=== PATIENT | female | born 1975 | race Caucasian/White ===

== ENCOUNTER 2023-10-22 00:48 | Day surgery (SDC) | payer OTHER, SELFPAY ==
[2023-10-19 13:54] VITALS: BMI 22.8
--- NOTE | 2023-10-19 14:01 | PC.NURSE ---
Report to the Outpatient Waiting Room, entrance under the green pavilion located off [facility], at time _0800_ on date _[id number]_. Planned Procedure Time: _1000_. Time changes happen often and if your time is changed the preop area will call you the afternoon before. - You and your visitor will be asked to self-screen and do not enter if you have any COVID symptoms. - A mask is optional within the hospital at this time. Patients may have clear liquids (water, carbonated beverages, clear teas, apple juice) until 3 hours prior to surgery with a maximum of 20 ounces. - No food from midnight until time of surgery Take the following medications with a SIP of water the morning of surgery: __None DO NOT STOP ANY OF YOUR OTHER PRESCRIPTION MEDICATIONS PRIOR TO SURGERY ?EXCEPT THE FOLLOWING Medications to discontinue per physician Patient say she was not told to hold meloxicam by Dr Arreola or her office. Date to take last dose Please no make-up, nail maori, hairspray, perfume, deodorant, or body powder the day of surgery. No jewelry (including any body piercings) or valuables the day of surgery, leave them at home. Please take a shower or bath the night before, or the morning of, surgery with an antibacterial soap. Wear comfortable, loose fitting clothing. - Jewelry must be removed prior to entering the operating room. Rings and piercings that are not removed may be cut off. - The hospital will not accept responsibility for valuables. - Please leave all valuables, including medications, at home the day of surgery. If you are going home after surgery, a licensed driver helper must drive you home. - NO public transportation without another adult if you receive anesthesia. - We recommend that an adult stay with you for 24 hours following discharge. - We also recommend that you do not drive, make important decision, drink alcoholic beverages, or take any drugs that were not prescribed by your health care provider for at least 24 hours after your discharge time. Follow any additional instructions given to you from your surgeon. If you or anyone in your household have experienced Covid symptoms in the past week, please notify your surgeon or the nurse liaison at the phone number below for possible testing. Telephone instructions given to ___Luciana and asked if any additional questions and then verbalized understanding. Patient advised to call surgeon office or pre surgery nurse liaison [phone] if any additional questions.
--- NOTE | 2023-10-22 07:59 | WPDHPUPDATE1 ---
History and Physical Update Update Date/Time: 10/22/23 07:59 History and Physical has been reviewed, including an updated exam of the patient. There are NO changes in the patient's condition. Risks, benefits, and alternatives have been discussed and questions answered. Patient agrees to proceed with procedure.
--- NOTE | 2023-10-22 07:59 | PM.HPGS ---
History of Present Illness History of Present Illness Consent: Risks, benefits, and alternatives have been discussed and questions answered. Patient agrees to proceed with procedure. Chief complaint: post menopausal bleeding Narrative: Luciana Yost is a 48 year old female with postmenopausal bleeding. Pelvic ultrasound shows a thickened endometrium. In addition the patient has a simple ovarian cyst. She was asymptomatic and tumor markers are normal. Options were reviewed and the patient declined laparoscopic management. Plan is for a repeat ultrasound in 3 months. Due to the thickened endometrium that was recommended to undergo D&C hysteroscopy. Risks of infection, bleeding, perforation, and possible pathology are reviewed. Patient voices understanding and agrees to proceed. Review of Systems Review of Systems: not repeated day of surgery; patient states no changes in status PMFSH Past Medical History Medical History (Updated 10/22/23 @ 08:05 by Cori Arreola MD) (normal spontaneous vaginal delivery) x3 Surgical History Surgical History (Updated 10/22/23 @ 08:04 by Cori Arreola MD) Status post appendectomy Status post carpal tunnel release left Status post hemorrhoidectomy Status post laparoscopic cholecystectomy Status post loop electrosurgical excision procedure (LEEP) of cervix Social History Social History Smoking status: Never smoker Alcohol intake: current Living arrangements: with family Spiritual care concerns: No Meds Home Medications and Allergies Home Medications Medication Instructions Recorded Confirmed Type meloxicam 15 mg tablet 15 mg PO HS 10/19/23 10/19/23 History Allergies Allergy/AdvReac Type Severity Reaction Status Date / Time No Known Allergies Allergy Verified 10/19/23 13:51 Exam Const: General: healthy appearing and alert Orientation/consciousness: patient oriented x3 Resp: Effort & Inspection: normal respiratory effort : External Female Exam: normal external appearance Speculum Exam - Vagina: normal appearance of the vagina and normal vaginal discharge Speculum Exam - Cervix: normal appearance of the cervix Bimanual exam- vagina & uterus: uterine size normal and consistency normal Bimanual Exam- Adnexa, other: normal adnexae and No adnexal tenderness Neuro: General: patient oriented x3 Assessment and Plan Assessment and plan (1) Post-menopausal bleeding: Code(s): N95.0 - Postmenopausal bleeding Status: Acute Assessment and Plan: plan to proceed with D&C hysteroscopy
[2023-10-22 08:05] VITALS: BP 91/57; PULSE 66; RESP 16; TEMP 36.5; O2SAT 100
[2023-10-22] MEDS: ACETAMINOPHEN 500 MG TABLET 1000 MG PO (08:30)
--- NOTE | 2023-10-22 08:42 | P.PNAN_ITS ---
Anes - Initial Pre Proc Eval Procedure: Operation Date: 10/22/23 10:00 Proposed Procedures p Hysteroscopy Dilation and Curettage - Cori Arreola MD Date/Time: 10/22/23 08:42 Surgeon: Cori Arreola MD Pre Op Diagnosis: post menopausal bleeding Patient Data Age: 48 Gender: F Height: 1.59 m Weight: 58 kg Last Vital Signs Temp 36.5 C 10/22/23 08:05 Pulse 66 10/22/23 08:05 Resp 16 10/22/23 08:05 BP 91/57 L 10/22/23 08:05 Pulse Ox 100 10/22/23 08:05 O2 Del Method Room Air 10/22/23 08:05 Allergies Allergy/AdvReac Type Severity Reaction Status Date / Time No Known Allergies Allergy Verified 10/19/23 13:51 Home Medications Medication Instructions Recorded Confirmed Type meloxicam 15 mg tablet 15 mg PO HS 10/19/23 10/19/23 History Patient hx anesthesia problems: none Family hx anesthesia problems: none Results Review: All pre-operative results and documents have been reviewed as part of the pre- operative evaluation. [facility] Past Medical History Medical History (normal spontaneous vaginal delivery) x3 Surgical History Surgical History Status post appendectomy Status post carpal tunnel release left Status post hemorrhoidectomy Status post laparoscopic cholecystectomy Status post loop electrosurgical excision procedure (LEEP) of cervix Social History Social History Smoking status: Never smoker Alcohol intake: current Living arrangements: with family Spiritual care concerns: No Anes - Eval Final PreProcedure Day of Procedure 10/22/23 08:42 Patient weight: normal Heart: regular rate and rhythm Lungs: clear to auscultation Airway: Mallampati scale class II Neurological: alert and oriented Last oral intake: >/= 8 hours ASA classification: I Emergent: no Anesthetic plan: proceed Anesthesia type and monitoring: general GIVS and standard monitoring Results Review: All pre-operative results and documents have been reviewed as part of the pre- operative evaluation. Informed Consent: The patient's anesthetic plan and its attendant risks and benefits were discussed with the patient/family/POA. Questions were solicited and answers provided to the satisfaction of the patient/family/POA.
[2023-10-22] MEDS: KETOROLAC 15 MG/ML VIAL (*BKC) IV PUSH (09:45)
--- NOTE | 2023-10-22 09:49 | W.PM.PROC2 ---
Procedure Note - Detailed Date of Procedure 10/22/23 Pre-op Diagnosis post menopausal bleeding Post-op Diagnosis Same Procedure Performed D&C hysteroscopy Surgeon Cori Arreola MD Anesthesia MAC Findings The cervix is stenotic. The endometrium appears grossly atrophic in sounds to 7cm. The uterus is tilted at a 45degree axis. Description of Procedure The patient is taken to the operating room and placed under anesthesia in the dorsal lithotomy position. She was prepped and draped in the usual sterile fashion. [place] speculum was placed in the vagina and the cervix grasped on the anterior lip with a tenaculum. The uterus is attempted to be sounded but the internal cervical os is stenotic. Os Finders are used in the cervix is able to be passed. The uterus is still unable to be sounded therefore the Hegar dilators are used and the cervix dilated to a 5 Hegar. The uterus is then sounded to 7cm. The diagnostic hysteroscope was placed and with the above-stated findings it is removed. The curette is unable to pass therefore the cervix was dilated to a 7 Hegar. The sharp OO curette is then used to curette the endometrium until a good uterine cry was noted in all areas. Minimal material was obtained consistent with the atrophic appearance. All instruments are removed. Sponge, needle, and instrument counts are correct per the OR staff. The patient was awakened from anesthesia and taken to recovery in stable condition. Estimated Blood Loss 5 Drains No Packing No Pathology Yes ( Endometrial curettings) Complications No immediate complications Condition Stable Disposition PACU
[2023-10-22 09:52] VITALS: BP 101/61; PULSE 49; RESP 14; O2SAT 100
[2023-10-22] MEDS: LACTATED RINGERS 1,000 ML 30 ML IV CONT (09:52)
[2023-10-22 10:15] VITALS: BP 95/61; PULSE 58; RESP 16
[2023-10-22 10:40] VITALS: BP 101/63; PULSE 53; RESP 16
== END 2023-10-22 10:45 | disposition home or self-care (01) ==
PROVIDERS: PCP Internal Medicine; Visit Provider Obstetrics & Gynecology Gynecology
PROC: 0U5B8ZZ Destruction of Endometrium, Via Natural or Artificial Opening Endoscopic (ICD-10-PCS; CPT 58563; principal; 2023-10-22 10:00)
DX: N95.0 Postmenopausal bleeding (principal); N85.8 Other specified noninflammatory disorders of uterus
CPT/HCPCS: 58558; 88305; A9270; J1885; J2250; J2704; J3010; J7120

== ENCOUNTER 2024-06-16 08:58 | Emergency (ER) | payer OTHER, SELFPAY ==
[2024-06-16 09:04] VITALS: BP 114/67; PULSE 73; RESP 16; O2SAT 100
[2024-06-16 09:09] VITALS: TEMP 36.3
[2024-06-16] MEDS: TETANUS,DIPHTHERIA,AC PERTUSSIS ADULT (0.5 ML) BOOSTRIX IM (09:37)
--- NOTE | 2024-06-16 10:15 | ED.WOUNDLAC ---
HPI - Wound/Laceration General Chief Complaint: Wound/Laceration Stated Complaint: finger lac Time Seen by Provider: 06/16/24 09:02 Source: patient Mode of arrival: ambulatory Limitations: no limitations History of Present Illness HPI narrative: Of would be good patient is a 48-year-old female who presents the ED with report of lacerations to her right 3rd and 4th digit. Patient reports she reached into her cleaning bag and cut her fingers on a razor blade. Denies numbness. Tetanus unknown. Denies any other injuries. Related Data Home Medications ?Medication ?Instructions ?Recorded ?Confirmed ?Last Taken ?Type meloxicam 15 mg tablet 15 mg PO HS 10/19/23 10/22/23 Unknown History Allergies Allergy/AdvReac Type Severity Reaction Status Date / Time No Known Allergies Allergy Verified 10/22/23 08:52 Review of Systems Review of Systems: All systems reviewed & are unremarkable except as noted in HPI. All systems reviewed & are unremarkable except as noted in HPI and below PMFSH Past Medical History Medical History (normal spontaneous vaginal delivery) x3 Surgical History Surgical History Status post hemorrhoidectomy Status post carpal tunnel release left Status post laparoscopic cholecystectomy Status post appendectomy Status post loop electrosurgical excision procedure (LEEP) of cervix Social History Social History Smoking status: Never smoker Alcohol intake: current Living arrangements: with family Spiritual care concerns: No Exam Narrative: GENERAL: Well appearing, well-nourished, non-toxic, in no acute distress. HEAD: Normocephalic, atraumatic. RESPIRATORY: Airway patent, respirations nonlabored. CARDIOVASCULAR: Regular rate and rhythm. Radial pulses strong and easily palpable. MUSCULOSKELETAL: Moves all extremities. No gross deformities. Full ROM of flexion of R fingers. Laceration to extensor surfaces of R 3rd/4th digits, 3rd digit linear over proximal phalange region with minimal active bleeding -fairly superficial, no involvement or exposure of tendons. 4th digit with laceration with v-shaped laceration extending into webspace between 3rd/4th digits. Minimal active bleeding. Sensation intact throughout digits. Capillary refill intact. SKIN: Warm, dry, normal color. NEURO: A&O X3. Speech clear. PSYCHIATRIC: Appropriate mood and affect. Normal interaction. Course Vital Signs Vital signs: Vital Signs Pulse Rate 73 06/16/24 09:04 Respiratory Rate 16 06/16/24 09:04 Blood Pressure 114/67 06/16/24 09:04 Pulse Oximetry 100 06/16/24 09:04 Temperature 97.3 F L 06/16/24 09:09 Pulse Rate 73 06/16/24 09:04 Respiratory Rate 16 06/16/24 09:04 Blood Pressure 114/67 06/16/24 09:04 Pulse Oximetry 100 06/16/24 09:04 Procedures Laceration Laceration 1: Date: 06/16/24 Time: 10:10 Site: hand Side (If applicable): right (3rd digit) Size (cm): 2 Description: linear Depth: simple, single layer Local Anesthetic: lidocaine 1% Amount of anesthesia used (mL): 3 Pre-repair: wound explored and irrigated ====== Skin Level ====== Skin layer closed with: nylon Size (cm): 5-0 Number of sutures: 4 Technique: simple, interrupted ====== Subcutaneous Layer ====== ====== Muscle Layer ====== ====== Tendon Layer ====== Laceration 2: Date: 06/16/24 Time: 10:12 Site: hand Side (If applicable): right (4th digit) Size (cm): 2 Description: linear and irregular Depth: simple, single layer Local Anesthetic: lidocaine 1% Amount of anesthesia used (mL): 3 Pre-repair: wound explored and irrigated ====== Skin Level ====== Skin layer closed with: nylon Size (cm): 5-0 Number of sutures: 4 Technique: simple, interrupted ====== Subcutaneous Layer ====== ====== Muscle Layer ====== ====== Tendon Layer ====== MDM - Wound/Laceration MDM Narrative Medical decision making narrative: Patient presented to ED with lacerations to right 3rd and 4th digits. Neurovascularly intact. Full range of motion of fingers. No indication for imaging. Tetanus was updated in the ED. Lacerations were repaired without complications. See procedure notes. Patient given wound care instructions and reasons to return. Discharged in stable condition. Medical Records Attestation: I reviewed the patient's medical records. Discharge Plan Discharge Clinical Impression: Laceration of multiple sites of right hand and fingers Patient Disposition: Home, Self-Care Condition: Stable Instructions: Antibiotic Form, Care For Your Stitches (ED), Laceration (ED) Additional Instructions: Return to the ED or visit an urgent care or your PCP for follow-up and wound check/suture removal in 10 to 14 days. Keep the wounds as dry as possible for 24 hours. You may remove the bandage after 24 hours and wash with simple soap and water, but do not scrub. Re-bandage if needed and using hands. Return to the ED if you experience uncontrolled bleeding, fever, chills, pus-like drainage, or redness/swelling/warmth surrounding the wound, as these could be signs of an infection. Patient Language: Sudanese Prescriptions: No Action meloxicam 15 mg Tablet 15 mg PO HS Follow-up/Referrals: Aubrey,Siva Rasmussen MD [Primary Care Provider] - Time of Disposition: 10:18
[2024-06-16 10:41] VITALS: BP 127/89; PULSE 66; RESP 14; O2SAT 99
--- OUTSIDE RECORDS SUMMARY | 2024-06-23 18:19 | XMS_ITS | Referral Summary ---
Author Organization [facility] Address [address] [place] [address] Care Team Providers Care Cooler Room Worker Name Role Phone Siva Burgos MD Primary Care Provider Source Comments [facility],non-owned Affiliates and Associated Physician Practices is amultiple site organization consisting of ambulatory clinics and hospital sitesin [place], [place], [place] and [place]. This disclosure is being madepursuant to the Care Everywhere program and may not contain all information available regarding this patient. Last updated 18.[facility] Encounters Date Type Department Care Team Description 05/08/2024 Travel 05/08/2024 10:45 AM MANAGER DATA Office Visit [facility] - Orthopedic Surgery [address] [place] [phone] Mika Leonard APRN-CNP Arthritis of carpometacarpal (CMC) joint of right thumb (Primary Dx); Primary osteoarthritis of first carpometacarpal joint of left hand; Follow-up examination after orthopedic surgery 04/10/2024 Travel 04/10/2024 9:45 AM CDT - 04/10/2024 11:59 PM CDT Hospital Encounter [facility] [place] [phone] Mika Leonard APRN-CNP Discharge Disposition: Home or Self Care 04/10/2024 9:45 AM CDT Office Visit [facility] - Orthopedic Surgery [address] [place] [phone] Mika Leonard, HEALTH PROMOTION SPECIALIST-APPLICATION ENGINEER Follow-up examination after orthopedic surgery (Primary Dx); Arthritis of carpometacarpal (CMC) joint of right thumb 03/28/2024 Orders Only [facility] - Orthopedics [address] [facility] [facility] [place] [phone] Hipolito Cat MD Arthritis of carpometacarpal (CMC) joint of right thumb 03/26/2024 Travel 03/26/2024 12:45 PM CDT Anesthesia Event [facility] [address] [place] [phone] Kolton Boone MD 03/26/2024 11:53 AM CDT - 03/26/2024 2:20 PM CDT Surgery [facility] [address] [place] [address] Hipolito Cat MD FIRST CARPOMETACARPAL JOINT ARTHROPLASTY WITH LIGAMENT RECONSTRUCTION USING FREE TENDON GRAFT 03/26/2024 10:14 AM CDT - 03/26/2024 4:30 PM CDT Hospital Encounter [facility] [address] [place] [address] Hipolito Cat MD Surgery General Discharge Disposition: Home or Self Care from Last 3 Months Allergies No known active allergies Medications * Be aware that medications may not be up to date on this document. Alwaysverify current medications with the patient. Medication Sig Dispensed Refills Start Date End Date Status meloxicam (Mobic) 15 MG tablet Take 1 (one) tablet by mouth once daily 90 tablet 1 08/08/2022 Active hydroxychloroquine (Plaquenil) 200 MG tablet TAKE 1 TABLET BY MOUTH EVERY DAY 90 tablet 1 11/06/2023 Active magnesium 250 MG tablet Take 1 (one) tablet by mouth once daily Active fluticasone propionate (Flonase) 50 MCG/ACT nasal spray 2 (two) sprays once daily as needed 04/26/2023 Active meclizine (Antivert) 25 MG tablet Take 1 (one) tablet by mouth 3 times daily as needed 11/02/2023 Active acetaminophen (Tylenol) 325 MG tablet Take 1 (one) tablet by mouth every 6 hours as needed 08/04/2023 Active cyanocobalamin (Vitamin B-12) 100 MCG tablet Take 1 (one) tablet by mouth once daily Active docusate sodium (Colace) 100 MG capsuleIndications :Constipation Take 1 (one) capsule by mouth 2 times daily as needed for Constipation Reasons: Constipation 03/26/2024 Active ibuprofen (Motrin) 400 MG tabletIndications: Fever,Pain Take 1 (one) tablet by mouth every 6 hours as needed for Pain Reasons: Fever, Pain 03/26/2024 Active acetaminophen (TYLENOL) 500 MG tablet Take 2 (two) tablets by mouth every 8 hours as needed for Fever or Pain Maximum allowable Acetaminophen amount = 4 Grams (4000 mg) / 24 hours. 03/26/2024 Active HYDROcodone-acetam inophen ([place]) 5-325 MG tabletIndications: Pain Take 1 (one) tablet by mouth every 6 hours as needed for Pain Reasons: Pain 12 tablet 03/26/2024 Active sennosides (Senna Lax) 8.6 MG tablet Take 1 (one) tablet by mouth 2 times daily as needed for Constipation Take while using narcotic pain medications, then take as needed for constipation 03/26/2024 Active Active Problems No known active problems Immunizations Name Administration Dates Next Due FLU VACCINE TRI IIV3 SPLIT PF IM (FLUVIRIN) 02/18 iNFLUENZA VACCINE, RECOM-VELAZQUEZ, QUADR. (FLUBLOCK QUADRIVALENT; 18Y+) (RIV4) 07/06/2022 Social History Tobacco Use Types Packs/Day Years Used Date Smoking Tobacco: Never Smokeless Tobacco: Never Alcohol Use Standard Drinks/Week Comments Yes 0 (1 standard drink = 0.6 oz pur e alcohol) social AUDIT-C Answer Date Recorded Q1: How often do you have a drink containing alcohol? Never 12/29/2022 Q2: How many drinks containi ng alcohol do you have on a typical day when you are drinking? Patient does not drink Q3: How often do you have si x or more drinks on one occasion? Never 12/29/2022 PHQ-2 Answer Date Recorded Patient Health Questionnaire-2 Score 0 04/03/2024 Sex and Gender Information Value Date Recorded Sex Assigned at Not on file Gender Identity Not on file Sexual Orientation Not on file Last Filed Vital Signs Vital Sign Reading Time Taken Comments Blood Pressure 113/78 03/26/2024 4:05 PM CDT Pulse 64 03/26/2024 4:05 PM CDT Temperature 36.3 ??C (97.3 ??F) 03/26/2024 3:40 PM CD T Respiratory Rate 16 03/26/2024 4:05 PM CDT Oxygen Saturation 99% 03/26/2024 4:05 PM CDT Inhaled Oxygen Concentration - - Weight 58.5 kg (129 lb) 03/26/2024 10:36 AM CDT Height 158.8 cm (5' 2.5 ) 03/26/2024 10:36 AM CD T Body Mass Index 23.22 03/26/2024 10:36 AM CDT Plan of Treatment Not on file Medical Devices Implanted Type Area Material Attendant Device Identifier Shelf Expiration Date Model / Serial / Lot Sys Intnl Fx Fiberlock Fiberlock Spns Implanted:Qty: 1 on 03/26/2024 by Hipolito Cat MD at Formerly named [facility] Right: Hand [employer] 10/15/2028 [id number] / / [id number] Description:Base of thumb Procedures Procedure Name Priority Date/Time Associated Diagnosis Comments XR HAND RIGHT 3VW OR MORE Routine 04/10/2024 10:24 AM CDT Arthritis of carpometacarpal (CMC) joint of right thumb IMAGING/RADIOLOGY /XRAY RESULTS ORDER 03/29/2024 1:55 AM CDT CARDIAC RHYTHM STRIP ORDER 03/29/2024 1:25 AM CDT XR HAND RIGHT 3VW OR MORE STAT 03/26/2024 3:26 PM CDT Pain FL VILMA SURGERY Routine 03/26/2024 2:50 PM CDT Pain TX REPAIR INTERCARP/CARP-ME TACARP JT 03/26/2024 12:30 PM CDT Diagnosis unknown Special Needs NEEDS MINI C-ARM, MCGLAMRY RETRACTORS, ARTHREX--REP. (MEKA # [phone]) NOTIFIED PER OFFICE (QU)--03/14 KW / FREE TENDON GRAFT IS FROM THE PATIENT PER SURGEON PER OFFICE (QU)--03/14 KW PERIPHERAL BLOCK Routine 03/26/2024 12:2 0 PM CDT from Last 3 Months Results * XR Hand Right 3Vw or More (04/10/2024 10:24 AM CDT) Only the most recent of2 resultswithin the time period is included. Anatomical Region Laterality Modality Wrist / Hand Radiographic Laura ging 04/10/2024 10:3 8 AM CDT Narrative 04/10/2024 10:48 AM CDT PROCEDURE: ??XR HAND RIGHT 3VW, DATE/TIME OF EXAM: ??04/10/2024 10:24 AM, LOCATION ??[facility] 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 of first carpometacarpal joint, right hand FINDINGS: ?? Since 03/26/2024, there has been removal of the cast. The triquetrum has been resected. There is mild proximal migration of the first metacarpal. Mild degenerative change of the interphalangeal articulations are present. There is no erosive arthropathy or bone destruction. Edited by Sandra Manzo on 04/10/2024 10:44 AM > Interpreting Provider: Klaus Cline MD on 04/10/2024 10:48 AM Procedure Note Klaus Cline MD - 04/10/2024 PROCEDURE: XR HAND RIGHT 3VW, DATE/TIME OF EXAM: 04/10/2024 10:24 AM, LOCATION [facility] 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 of first carpometacarpaljoint, right hand FINDINGS: Since 03/26/2024, there has been removal of the cast. The triquetrum has been resected. There is mild proximal migration of the first metacarpal. Mild degenerative change of the interphalangeal articulations arepresent. There is no erosive arthropathy or bone destruction. Edited by Sandra Manzo on 04/10/2024 10:44 AM > Interpreting Provider: Klaus Cline MD on 04/10/2024 10:48 AM Mika Martinez Horacio HEALTH PROMOTION SPECIALIST-APPLICATION ENGINEER DIAGNOSTIC IMAG ING ORDERABLES * IMAGING RADIOLOGY XRAY RESULTS ORDER (03/29/2024 1:55 AM CDT) Anatomical Region Laterality Modality Other Narrative 03/29/2024 1:55 AM CDT Ordered by an unspecified provider. Scanned Document IMAGING * CARDIAC RHYTHM STRIP ORDER (03/29/2024 1:25 AM CDT) Narrative 03/29/2024 1:25 AM CDT Ordered by an unspecified provider. Scanned Document CARDIAC SERVICES ORD ERABLES * FL Vilma Surgery (03/26/2024 2:50 PM CDT) Narrative [facility] - 03/26/2024 3:05 PM CDT For details of this study, please see the providers note. Hipolito Cat MD FLUOROSCOPY ORDERABL ES [facility] [address] [place] [address] * Peripheral Nerve Block (03/26/2024 12:20 PM CDT) Narrative Tristan Vela MD - 03/26/2024 12:20 PM CDT Tristan Vela MD ? 03/26/2024 12:23 PM Peripheral ??Nerve Block ?? Procedure: Peripheral Nerve Block Patient Location: ??Pre-op Preprocedure Section: ?? Indications: at surgeon's request and surgical anesthesia. Pre-anesthetic Checklist: Patient identified, IV Checked, Site examined and clear, Risks and benefits discussed, Surgical consent verified, Monitors and equipment, Time-out performed, Informed consent obtained, Pre-op evaluation done, Questions answered/anesthesia questions answered, Allergies reviewed and Removal hand/wrist jewelry Monitors: BP, Pulse Ox, EKG and ETCO2. Patient Condition: ??sedated, meaningful contact maintained throughout procedure Patient Position: supine Patient Sedated? ??Yes ? Sedation Type: ??mild ? Sedation Agents: ??fentaNYL (PF) (SUBLIMAZE) injection - Intravenous 100 mcg - 03/26/2024 12:10:00 PM midazolam (VERSED) injection - Intravenous 2 mg - 03/26/2024 12:10:00 PM Procedure Section ?? Laterality: right Block Performed: ??Supraclavicular Prep: ??Chloraprep Strerile Field: gloves, mask and hat/cap Skin localized with: lidocaine (XYLOCAINE) 1 % injection - Infiltration 3 mL - 03/26/2024 12:13:00 PM Needle Type: ??Echogenic insulated Needle Gauge: ??21 Needle Length: ??50 mm Catheter?No Ultrasound Guided? ?? Yes ? Technique: ??in plane ? Visualization: ??Preliminary scan performed, Important anatomical structures identified, Needle tip visualized throughout the procedure, Target identified, No intraneural or intravascular puncture occurred, Ultrasound image in chart, Local visualized surrounding nerve on ultrasound and Hydrodissection utilized Injection was made incrementally with constant monitoring and aspirations every 5 mL's Injection Assessment: ?? Slow fractionated injection Block Agents or Additives used? Yes Block agents used: bupivacaine 0.5% - EPINEPHrine 1:200,000 (PF) injection - Infiltration 30 mL - 03/26/2024 12:15:00 PM Procedure Tolerance: tolerated well Assessment: completed Staff Section ? Anesthesia Provider: Tristan Vela MD, Performed the procedure Tristan Vela MD GENERAL ANESTHESIA O RDERABLES from Last 3 Months Care Teams Cooler Room Worker Relationship Specialty Start Date End Date Siva Burgos MD [address] [place] [address] PCP - General Internal Medicine 07/06/22
--- OUTSIDE RECORDS SUMMARY | 2024-06-23 18:19 | XMS_ITS | Encounter Summary ---
Author Organization [facility] Address [address] [place] [address] Care Team Providers Care Engine Head Repairer Name Role Phone Siva Burgos MD Primary Care Provider [phone] Encounter Details Date Type Department Care Team (Latest Contact Info) Description 04/10/2024 Travel Social History Tobacco Use Types Packs/Day Years [...] on file Sexual Orientation Not on file documented as of this encounter Plan of Treatment Not on file documented as of this encounter Visit Diagnoses Not on filedocumented in this encounter Care Teams Engine Head Repairer Relationship Specialty Start Date End Date Siva Burgos MD [address] [place] [address] PCP - General Internal Medicine 07/06/22 documented as of this encounter
--- OUTSIDE RECORDS SUMMARY | 2024-06-23 18:19 | XMS_ITS | Encounter Summary ---
Author Organization [facility] Address [address] [facility] [place] [address] Care Team Providers Care Software Technician Name Role Phone Siva Burgos MD Primary Care Provider [phone] Reason for Referral * Consultation (Routine) - Pending Review Specialty Diagnoses / Procedures Referred By Travis elizabeth Referred To Contact Diagnoses Arthritis of carpometacarpal (CMC) joint of right thumb Mika Leonard APRN-DOUG [address] [facility] [address] [place] [address] Referral ID Status Reason Start Date Expiration Date Visits Requested Visits Authorized [id number] Pending Review Specialty Services Required 04/10/2025 12 12 Reason for Visit * Reason Comments Post-Op Right hand wants Lef t hand injection Encounter Details Date Type Department Care Team (Latest Contact Info) Description 04/10/2024 9:45 AM CDT Office Visit [facility] - Orthopedic Surgery [address] [place] [phone] Mika Leonard APRN-DOUG [address] [place], [place] [phone] Follow-up examination after orthopedic surgery (Primary Dx); Arthritis of carpometacarpal (CMC) joint of right thumb Social History Tobacco Use Types Packs/Day Years [...] on file documented as of this encounter Progress Notes * Mika Leonard, WIRE STRIPPER-HEALTH MANAGER - 04/10/2024 9:43 AM CDT Images from the original note were not included. Chief Complaint: 2 week(s) post Right first carpometacarpal joint arthroplasty with ligament reconstruction using free tendon graft History of Present Illness: The patient reports that the pain is controlled. They have been in a surgical dressing up to this point. Otherwise no complaints. 04/25/2023 Patient-entered Ortho Intake Form Referring provider Dr. omalley Reason for visit Right Thumb What are your symptoms? Stiffness Other If Other , please list those symptoms here. Popping and sticking and not being to bend thumbs How did this pain/injury begin? Just started one day When did your pain/injury start? Both thumbs Does any other area/part of your body hurt? Hands Active Worker's Comp claim? No Pain level at rest 4 Pain level with activity 7 What makes your pain worse? Rest Treatments tried Rest/activity modification Currently employed? Yes Smoking status Never Alcohol intake? Yes Taking opioid/narcotic? No Multiple values from one day are sorted in reverse-chronological order 04/25/2023 09/05/2023 02/29/2024 Patient-Reported Satisfaction Current state satisfactory? No No No Prior treatment? No Yes - non-surgical treatment Yes - non-surgical treatment Function since treatment Worse Slightly Improved Currently taking narcotics? No No No 04/25/2023 09/05/2023 02/29/2024 PROMIS Upper Extremity PROMIS UE Function Score 35 (moderate dysfunction) 28 (severe dysfunction) 26 (severe dysfunction) 04/25/2023 09/05/2023 02/29/2024 PROMIS Pain Interference PROMIS PI Score 56 (mild) 62 (moderate) 63 (moderate) 04/25/2023 09/05/2023 02/29/2024 04/03/2024 Patient-entered QuickDASH Laterality Right Right Left Right QuickDASH Score 36.36 52.27 47.73 81.82 04/25/2023 09/05/2023 02/29/2024 04/03/2024 Depression Screening PHQ-2 Score Incomplete Incomplete Incomplete Incomplete Patient Health Questionnaire-2 Score 0 0 0 0 Past Medical History: Diagnosis Date Gallstones Past Surgical History: Procedure Laterality Date Appendectomy 07/2023 CARPAL TUNNEL SURGERY Left HAND & FINGER(S), ARTHROPLASTY Right 03/26/2024 Right; FIRST CARPOMETACARPAL JOINT ARTHROPLASTY WITH LIGAMENT RECONSTRUCTION USING FREE TENDON GRAFT Family history noncontributory Social History Socioeconomic History Marital status: Spouse name: Not on file Number of children: Not on file Years of education: Not on file Highest education level: Not on file Occupational History Not on file Tobacco Use Smoking status: Never Smokeless tobacco: Never Vaping Use Vaping status: Never Used Substance and Sexual Activity Alcohol use: Yes Comment: social Drug use: Never Sexual activity: Yes Other Topics Concern Not on file Social History Narrative Not on file Social Determinants of Health Financial Resource Strain: Patient Declined (02/12/2024) Received from [facility] [employer] [facility], [facility] and [facility] Overall Financial Resource Strain (CARDIA) Difficulty of Paying Living Expenses: Patient declined Food Insecurity: Patient Declined (02/12/2024) Received from [facility] [employer] [facility], [facility] [employer] and [facility] Hunger Vital Sign Worried About Running Out of Food in the Last Year: Patient declined Ran Out of Food in the Last Year: Patient declined Transportation Needs: Patient Declined (02/12/2024) Received from [facility] [employer] and [facility], [facility] and [facility] PRAPARE - Transportation Lack of Transportation (Medical): Patient declined Lack of Transportation (Non-Medical): Patient declined Stress: Patient Declined (02/12/2024) Received from [facility], [facility] [employer] [place] of Occupational Health - Occupational Stress Questionnaire Feeling of Stress : Patient declined Housing Stability: Unknown (02/12/2024) Received from [facility], [facility] Housing Stability Vital Sign Unable to Pay for Housing in the Last Year: Patient declined Number of Times Moved in the Last Year: Not on file Homeless in the Last Year: No Current Outpatient Medications on File Prior to Visit Medication Sig Dispense Refill acetaminophen (Tylenol) 325 MG tablet Take 1 (one) tablet by mouth every 6 hours as needed acetaminophen (TYLENOL) 500 MG tablet Take 2 (two) tablets by mouth every 8 hours as needed for Fever or Pain Maximum allowable Acetaminophen amount = 4 Grams (4000 mg) / 24 hours. cyanocobalamin (Vitamin B-12) 100 MCG tablet Take 1 (one) tablet by mouth once daily docusate sodium (Colace) 100 MG capsule Take 1 (one) capsule by mouth 2 times daily as needed for Constipation Reasons: Constipation fluticasone propionate (Flonase) 50 MCG/ACT nasal spray 2 (two) sprays once daily as needed HYDROcodone-acetaminophen ([place]) 5-325 MG tablet Take 1 (one) tablet by mouth every 6 hours as needed for Pain Reasons: Pain 12 tablet 0 hydroxychloroquine (Plaquenil) 200 MG tablet TAKE 1 TABLET BY MOUTH EVERY DAY 90 tablet 1 ibuprofen (Motrin) 400 MG tablet Take 1 (one) tablet by mouth every 6 hours as needed for Pain Reasons: Fever, Pain magnesium 250 MG tablet Take 1 (one) tablet by mouth once daily meclizine (Antivert) 25 MG tablet Take 1 (one) tablet by mouth 3 times daily as needed meloxicam (Mobic) 15 MG tablet Take 1 (one) tablet by mouth once daily 90 tablet 1 sennosides (Senna Lax) 8.6 MG tablet Take 1 (one) tablet by mouth 2 times daily as needed for Constipation Take while using narcotic pain medications, then take as needed for constipation No current facility-administered medications on file prior to visit. No Known Allergies Physical Exam: Right upper extremity: CMCJ surgical wound well approximated with Steri-strinps in place. No signs of infection, no erythema, no discharges. Radiographs: I independently viewed and interpreted the right hand xray images, showing interval resection of trapezium- an expected post surgical change s/p thumb CMCJ arthroplasty. Chart review: I reviewed the patient's chart including previous visits, radiographic imaging and all relevant exams. Assessment: 2 week(s) post Right first carpometacarpal joint arthroplasty with ligament reconstruction using free tendon graft . Plan: The patient is doing doing well. Surgical dressing removed today. Patient scheduled to begin hand therapy today. Plan for OT splint Follow up in 1 month Future Visit: 1 Month. Mika Leonard APRN, FOOD CONCESSION MANAGER-C Hand and Upper Extremity Nurse Practitioner In collaboration with Dr. Morgan Tadeo and Dr. Hipolito Cat [facility] Orthopedics - [facility] Specialized Medicine - [address] [place] [address] For Appointments: [facility] [place] [facility], [address] [facility] For Appointments: documented in this encounter Plan of Treatment Scheduled Referrals Name Type Priority Associated Diagnoses Orde r Schedule AMB REFERRAL TO HAND THERAPY OT OR PT Outpatient Referral Routine Arthritis of carpometacarpal (CMC) joint of right thumb 1 Occurrences starting 04/10/2024 until 04/10/2025 documented as of this encounter Results * XR Hand Right 3Vw or More (04/10/2024 10:24 AM CDT) Anatomical Region Laterality Modality Wrist / Hand Radiographic Laura ging 04/10/2024 10:3 8 AM CDT Narrative 04/10/2024 10:48 AM CDT PROCEDURE: ??XR HAND RIGHT 3VW, DATE/TIME OF EXAM: ??04/10/2024 10:24 AM, LOCATION ??[facility] 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 of first [...] DATE/TIME OF EXAM: 04/10/2024 10:24 AM, LOCATION [facility] 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 of first [...] Cline MD on 04/10/2024 10:48 AM Mika Leonard WIRE STRIPPER-HEALTH MANAGER DIAGNOSTIC IMAG ING ORDERABLES documented in this encounter Visit Diagnoses Diagnosis Follow-up examination after orthopedic surgery- Primary Follow-up examination, following other surgery Arthritis of carpometacarpal (CMC) joint of right thumb Arthritis of carpometacarpal (CMC) joint of right thumb documented in this encounter Care Teams Software Technician Relationship Specialty Start Date End Date Siva Burgos MD [address] [place] [address] PCP - General Internal Medicine 07/06/22 documented as of this encounter
--- OUTSIDE RECORDS SUMMARY | 2024-06-23 18:19 | XMS_ITS | Encounter Summary ---
Author Organization [facility] Health Address [address] [place] [address] Care Team Providers Care Automation Controls Engineer Name Role Phone Siva Burgos MD Primary Care Provider Encounter Details Date Type Department Care Team (Latest Contact Info) Description 04/10/2024 9:45 AM CDT - 04/10/2024 11:59 PM CDT Hospital Encounter [facility] - Orthopedics [address], [address] [place] [address] Mika Leonard, ACADEMIC AFFAIRS SPECIALIST-GRADUATE TEACHING ASSISTANT [address] [address] [facility] [address] [place] [address] Discharge Disposition: Home or Self Care Social History Tobacco Use Types Packs/Day Years [...] on file documented as of this encounter Medications at Time of Discharge Medication Sig Dispensed Refills Start Date End Date acetaminophen (Tylenol) 325 MG tablet Take 1 (one) tablet by mouth every 6 hours as needed 08/04/2023 acetaminophen (TYLENOL) 500 MG tablet Take 2 (two) tablets by mouth every 8 hours as needed for Fever or Pain Maximum allowable Acetaminophen amount = 4 Grams (4000 mg) / 24 hours. 03/26/2024 cyanocobalamin (Vitamin B-12) 100 MCG tablet Take 1 (one) tablet by mouth once daily docusate sodium (Colace) 100 MG capsuleIndications:Co nstipation Take 1 (one) capsule by mouth 2 times daily as needed for Constipation Reasons: Constipation 03/26/2024 fluticasone propionate (Flonase) 50 MCG/ACT nasal spray 2 (two) sprays once daily as needed 04/26/2023 HYDROcodone-acetamino phen (Corolla) 5-325 MG tabletIndications:Charly n Take 1 (one) tablet by mouth every 6 hours as needed for Pain Reasons: Pain 12 tablet 03/26/2024 hydroxychloroquine (Plaquenil) 200 MG tablet TAKE 1 TABLET BY MOUTH EVERY DAY 90 tablet 1 11/06/2023 ibuprofen (Motrin) 400 MG tabletIndications:Fev er,Pain Take 1 (one) tablet by mouth every 6 hours as needed for Pain Reasons: Fever, Pain 03/26/2024 magnesium 250 MG tablet Take 1 (one) tablet by mouth once daily meclizine (Antivert) 25 MG tablet Take 1 (one) tablet by mouth 3 times daily as needed 11/02/2023 meloxicam (Mobic) 15 MG tablet Take 1 (one) tablet by mouth once daily 90 tablet 1 08/08/2022 sennosides (Senna Lax) 8.6 MG tablet Take 1 (one) tablet by mouth 2 times daily as needed for Constipation Take while using narcotic pain medications, then take as needed for constipation 03/26/2024 documented as of this encounter Plan of Treatment Not on file documented as of this encounter Procedures Procedure Name Priority Date/Time Associated Diagnosis Comments XR HAND RIGHT 3VW OR MORE Routine 04/10/2024 10:24 AM CDT Arthritis of carpometacarpal (CMC) joint of right thumb documented in this encounter Results * XR Hand Right 3Vw or More (04/10/2024 10:24 AM CDT) Anatomical Region Laterality Modality Wrist / Hand Radiographic Laura ging 04/10/2024 10:3 8 AM CDT Narrative 04/10/2024 10:48 AM CDT PROCEDURE: ??XR HAND RIGHT 3VW, DATE/TIME OF EXAM: ??04/10/2024 10:24 AM, LOCATION ??[facility] 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 [...] DATE/TIME OF EXAM: 04/10/2024 10:24 AM, LOCATION [facility] 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 [...] MD on 04/10/2024 10:48 AM Mika Leonard ACADEMIC AFFAIRS SPECIALIST-GRADUATE TEACHING ASSISTANT DIAGNOSTIC IMAG ING ORDERABLES documented in this encounter Visit Diagnoses Diagnosis Arthritis of carpometacarpal (CMC) joint of right thumb documented in this encounter Care Teams Automation Controls Engineer Relationship Specialty Start Date End Date Siva Burgos MD [address] [place] [address] PCP - General Internal Medicine 07/06/22 documented as of this encounter
--- OUTSIDE RECORDS SUMMARY | 2024-06-23 18:19 | XMS_ITS | Encounter Summary ---
Author Organization [facility] Health Address [address] [place] [address] Care Team Providers Care Oim Consultant Name Role Phone Siva Burgos MD Primary Care Provider [phone] Encounter Details Date Type Department Care Team (Latest Contact Info) Description 05/08/2024 Travel Social History Tobacco Use Types Packs/Day [...] on filedocumented in this encounter Care Teams Oim Consultant Relationship Specialty Start Date End Date Siva Burgos MD [address] [place] [address] PCP - General Internal Medicine 07/06/22 documented as of this encounter
--- OUTSIDE RECORDS SUMMARY | 2024-06-23 18:19 | XMS_ITS | Encounter Summary ---
Author Organization [facility] Address [address] [place] [address] Care Team Providers Care Dry Wall Installer Name Role Phone Siva Burgos MD Primary Care Provider [phone] Reason for Visit * Auth/Cert (Routine) Specialty Diagnoses / Procedures Referred By Travis elizabeth Referred To Contact Diagnoses Diagnosis unknown Diagnosis unknown [R69] Procedures IA REPAIR INTERCARP/CARP-METACARP JT IA REPAIR INTERCARP/CARP-METACARP JT IA TRANSPLANT/GRAFT HAND TENDON ARTHROPLASTY / INTERPOSITION CARPOMETACARPAL (CMC) Referral ID Status Reason Start Date Expiration Date Visits Re quested Visits Authorized [id number] 1 1 Encounter Details Date Type Department Care Team (Late st Contact Info) Description 03/26/2024 12:45 PM CDT Anesthesia Event [facility] [address] [place] [address] Kolton Boone MD [address] [place] [address] [address] [place] [id number] Anesthesia Record Procedure Summary Procedure Name Responsible Anesthesiologist Anesthesia Start Time Anesthesia Stop Time FIRST CARPOMETACARPAL JOINT ARTHROPLASTY WITH LIGAMENT RECONSTRUCTION USING FREE TENDON GRAFT (Right) Kolton Boone MD 03/26/24 1245 03/26/24 1440 Events Date Time Event Comment 03/26/2024 1036 1245 An Start 1247 An Start Data 1248 PT Reassessment 1303 Timeout Anesthesia part icipated in timeout at the time documented in the record by nursing. 1303 An Tourn Deflated Total Tour niquet Time ( in minutes): 250, right arm 1305 Incision 1306 Stop ABX 1359 An Tourn Deflated Total Tour niquet Time ( in minutes): 55 1433 an stop data 1433 Electnc Sig This record is electronically signed by the providers listed under staff. 1433 ANPTO2 1440 An Stop Meds Name Total bupivacaine 0.5% - EPINEPHrine 1:200,000 (PF) injection 30 mL fentaNYL (PF) (SUBLIMAZE) injection 150 mcg midazolam (VERSED) injection 2 mg lidocaine (XYLOCAINE) 1 % injection 3 mL lidocaine 2% injection (20 mg/ml) 60 mg propofol (DIPRIVAN) injection 10mg/mL 46 6.83 mg phenylephrine 1000 mcg/10mL injection 85 0 mcg ondansetron 4 mg/2mL injection 4 mg ceFAZolin (Ancef) 2 g in 0.9% NaCl IV 50 mL IVPB 2 g dexmedeTOMIDine HCl (Precedex) 200 mcg/2 ml injection 15 mcg diphenhydrAMINE 50mg/ml injection 25 mg glycopyrrolate 1mg/5mL injection 0.2 mg lactated ringers infusion 1,000 mL * Agents Name Exp. Sevoflurane O2 Insp. Sevoflurane N2O * Blood No blood administrations on file. Lines, Drains, and Airways Type Details Placement Removal Peripheral IV Date: 03/26/24; Time: 1044; Orientation: Left, Posterior; Location: Hand; Gauge: 20 G 03/26/24 1044 by Bere Martínez RN 03/26/24 1625 by Vero Grier, BALJIT Procedural Site (Incision) 03/26/24; 1315; Right; Hand (Base of thumb); 03/26/24; 2232 03/26/24 1315 by Maria D Loomis, BALJIT 03/26/24 2232 by Curtis Berryman & Son Cremation, Auto Release documented in this encounter Social History Tobacco Use Types Packs/Day Years [...] Date Recorded Patient Health Questionnaire-2 Score 0 02/29/2024 Sex and Gender Information Value Date Recorded Sex Assigned at Not on file Gender Identity Not on file Sexual Orientation Not on file documented as of this encounter Progress Notes * Marco Lanier MD - 03/26/2024 3:00 PM CDT ANESTHESIA POSTOP EVALUATION NOTE Procedure: FIRST CARPOMETACARPAL JOINT ARTHROPLASTY WITH LIGAMENT RECONSTRUCTION USING FREE TENDON GRAFT (Right) Luciana Yost is a 48 year old female Patient Vitals for the past 6 hrs: BP Temp Pulse Resp SpO2 Pain Rating Score #1 Pain Scale/Observation Pulse - (SPO2/Cuff) 03/26/24 1436 96/60 97.3 ??F (36.3 ??C) 73 12 -- 0 N;B -- 03/26/24 1440 89/66 -- 77 13 95 % -- -- 76 bpm 03/26/24 1445 96/66 -- 79 12 97 % 0 N;B 78 bpm 03/26/24 1450 104/62 -- 71 9 97 % -- -- 72 bpm 03/26/24 1455 98/66 -- 70 11 -- -- -- 71 bpm 03/26/24 1500 100/72 -- 66 11 97 % 0 N;B 66 bpm 03/26/24 1501 100/72 -- 67 10 97 % -- -- 66 bpm 03/26/24 1505 101/73 -- 68 10 98 % -- -- 68 bpm 03/26/24 1510 95/67 -- 66 11 98 % -- -- 66 bpm 03/26/24 1515 96/68 -- 68 15 100 % 0 N;B 68 bpm 03/26/24 1520 94/71 -- 71 9 98 % -- -- 70 bpm 03/26/24 1525 96/71 -- 68 14 -- -- -- 69 bpm 03/26/24 1540 111/78 97.3 ??F (36.3 ??C) 69 14 99 % 0 N 69 bpm 03/26/24 1605 113/78 -- 64 16 99 % 0 N 64 bpm 03/26/24 1625 -- -- -- -- -- 0 N -- Anesthesia Type: MAC Pre-op Diagnosis Codes: * Diagnosis unknown [R69] Mental Status: awake, sufficiently recovered from acute administration of anesthesia to participatein the evaluation and neurologic status has returned to expected level of consciousness Neuro Status: No numbness, tingling or visual disturbances Respiratory Function: natural Cardiac Function: stable Postop Pain: acceptable to the patient Postop Hydration: adequate Postop Nausea: none Assessment: no apparent anesthetic complications, patient tolerated procedure well and no evidence of recall Patient Disposition: Release from Anesthesia Care NOTABLE EVENTS: No notable events documented. * Kolton Boone MD - 03/26/2024 10:35 AM CDT ANESTHESIA PREOPERATIVE EVALUATION NOTE Procedure: FIRST CARPOMETACARPAL JOINT ARTHROPLASTY WITH LIGAMENT RECONSTRUCTION USING FREE TENDON GRAFT (Right) Vitals: No data found. LMP: No LMP recorded. Patient is premenopausal. OB Status: Premenopausal ANESTHESIA PRE-EVALUATION NOTE The patient is a current non-smoker. Physical Exam: Orientation X3 Airway/Mallampati Score: II Neck ROM: full Teeth: normal Heart: normal - S1 S2 Lungs: clear to ausculation bilaterally Physical Exam Additional Comments: EF 68% 2022 Diagnostic Tests: Echo(s) reviewed: Yes. ANESTHESIA PLAN ASA Score: 2 NPO Status: No solids since midnight Anesthesia Plan: MAC Nerve Blocks: Supraclavicular. This procedure was done at surgeon's request. Planned Induction: intravenous Planned Postop Destination: PACU Anesthetic plan was discussed with: patient Anesthetic Plan discussion was: Consented The patient's procedural Anesthetic Plan was discussed with the FUR DRESSER. BMI, Height, Weight Tobacco History Estimated body mass index is 22.57 kg/m?? as calculated from the following: Height as of 02/08/23: 1.6 m (5' 2.99 ). Weight as of 02/08/23: 57.8 kg (127 lb 6.4 oz). Social History Tobacco Use Smoking Status Never Smokeless Tobacco Never Alcohol History Drug History Social History Substance and Sexual Activity Alcohol Use Yes Comment: social Social History Substance and Sexual Activity Drug Use Never Outpatient Medications: Inpatient Medications: Outpatient Medications Marked as Taking for the 03/26/24 encounter (Hospital Encounter) Medication Sig Last Dose acetaminophen Take 1 (one) tablet by mouth every 6 hours as needed cyanocobalamin Take 1 (one) tablet by mouth once daily fluticasone propionate 2 (two) sprays once daily as needed meclizine Take 1 (one) tablet by mouth 3 times daily as needed Current Facility-Administered Medications Medication Dose Last Admin 0.9% NaCl 3 mL And 0.9% NaCl 1-10 mL acetaminophen 1,000 mg ceFAZolin 2 g lactated ringers lidocaine 0.2 mL scopolamine 1 patch And scopolamine patch placement confirmation Allergies: No Known Allergies Relevant Problems Problem List: There are no problems to display for this patient. Medical History: Past Medical History: Diagnosis Date Gallstones Surgical History: Past Surgical History: Procedure Laterality Date Appendectomy 07/2023 CARPAL TUNNEL SURGERY RN ANESTHESIOLOGY Status: No LMP recorded. Patient is premenopausal. Premenopausal OB History No obstetric history on file. Covid Vaccine: Lab Results: No results found for requested labs within last 120 days. No results found for requested labs within last 120 days. documented in this encounter Procedure Notes * Tristan Vela MD - 03/26/2024 12:20 PM CDTAssociated Order(s): Peripheral Nerve Block Peripheral Nerve Block Procedure: Peripheral Nerve Block Patient Location: Pre-op Preprocedure Section: Indications: at surgeon's request and surgical anesthesia. Pre-anesthetic Checklist: Patient identified, IV Checked, Site examined and clear, Risks and benefits discussed, Surgical consent verified, Monitors and equipment, Time-out performed, Informed consent obtained, Pre-op evaluation done, Questions answered/anesthesia questions answered, Allergies reviewed and Removal hand/wrist jewelry Monitors: BP, Pulse Ox, EKG and ETCO2. Patient Condition: sedated, meaningful contact maintained throughout procedure Patient Position: supine Patient Sedated? Yes Sedation Type: mild Sedation Agents: fentaNYL (PF) (SUBLIMAZE) injection - Intravenous 100 mcg - 03/26/2024 12:10:00 PM midazolam (VERSED) injection - Intravenous 2 mg - 03/26/2024 12:10:00 PM Procedure Section Laterality: right Block Performed: Supraclavicular Prep: Chloraprep Strerile Field: gloves, mask and hat/cap Skin localized with: lidocaine (XYLOCAINE) 1 % injection - Infiltration 3 mL - 03/26/2024 12:13:00 PM Needle Type: Echogenic insulated Needle Gauge: 21 Needle Length: 50 mm Catheter? No Ultrasound Guided? Yes Technique: in plane Visualization: Preliminary scan performed, Important anatomical structures identified, Needle tip visualized throughout the procedure, Target identified, No intraneural or intravascular puncture occurred, Ultrasound image in chart, Local visualized surrounding nerve on ultrasound and Hydrodissection utilized Injection was made incrementally with constant monitoring and aspirations every 5 mL's Injection Assessment: Slow fractionated injection Block Agents or Additives used? Yes Block agents used: bupivacaine 0.5% - EPINEPHrine 1:200,000 (PF) injection - Infiltration 30 mL - 03/26/2024 12:15:00 PM Procedure Tolerance: tolerated well Assessment: completed Staff Section Anesthesia Provider: Tristan Vela MD, Performed the procedure documented in this encounter Miscellaneous Notes * Anesthesia Transfer of Care - Simi Vasquez APRN-FUR DRESSER - 03/26/2024 2:40 PM CDT ANESTHESIA TRANSFER OF CARE NOTE Today's Date: 03/26/2024 Date of : 1975 Patient: Luciana Yost Procedure(s): FIRST CARPOMETACARPAL JOINT ARTHROPLASTY WITH LIGAMENT RECONSTRUCTION USING FREE TENDON GRAFT Surgeon(s): Primary: Hipolito Cat MD Preop Diagnosis: Pre-op Diagnois: * Diagnosis unknown [R69] Pre-op Meds (From admission, onward) Start Stop Status Route Frequency Ordered 03/26/24 1021 0.9% NaCl injection 1-10 mL See Hyperspace for full Linked Orders Report. -- Dispensed IK PRN 03/26/24 1021 03/26/24 1400 0.9% NaCl injection 3 mL See Hyperspace for full Linked Orders Report. -- Dispensed IK EVERY 8 HOURS 03/26/24 1021 03/26/24 1045 acetaminophen (Tylenol) tablet 1,000 mg 03/26/24 1047 Completed PO ONCE 03/26/24 1027 03/26/24 1215 BUPivacaine 0.5% - EPINEPHrine 1:200,000 (PF) injection 03/26/24 1215 Completed INFILTRATION 03/26/24 1223 03/26/24 1030 ceFAZolin (Ancef) 2 g in 0.9% NaCl IV 50 mL IVPB 03/26/24 1250 Completed IV ONCE 03/26/24 1021 03/26/24 1250 dexmedeTOMIDine (Precedex) injection -- Sent IV PRN 03/26/24 1251 03/26/24 1250 diphenhydrAMINE (Benadryl) injection -- Sent IV PRN 03/26/24 1251 03/26/24 1434 diphenhydrAMINE (Benadryl) injection 25 mg -- Verified IV ONCE PRN 03/26/24 1434 03/26/24 1210 fentaNYL (PF) (Sublimaze) injection 03/26/24 1403 Completed IV 03/26/24 1223 03/26/24 1434 fentaNYL (PF) (Sublimaze) injection 25 mcg -- Verified IV EVERY 10 MIN PRN 03/26/24 1434 03/26/24 1434 fentaNYL (PF) (Sublimaze) injection 50 mcg -- Verified IV EVERY 10 MIN PRN 03/26/24 1434 03/26/24 1428 glycopyrrolate (Robinul) injection -- Sent IV PRN 03/26/24 1429 03/26/24 1434 HYDROmorphone (Dilaudid) injection 0.5 mg -- Verified IV EVERY 10 MIN PRN 03/26/24 1434 03/26/24 1030 lactated ringers infusion -- Verified IV CONTINUOUS 03/26/24 1021 03/26/24 1213 lidocaine (Xylocaine) 1 % injection 03/26/24 1213 Completed INFILTRATION 03/26/24 1223 03/26/24 1249 lidocaine HCl (PF) (Xylocaine MPF) 2 % injection -- Sent IV PRN 03/26/24 1251 03/26/24 1026 lidocaine PF (Xylocaine MPF) 1 % injection 0.2 mL -- Verified INFILTRATION PRE-OP MULTIPLE 03/26/24 1027 03/26/24 1210 midazolam (Versed) injection 03/26/24 1210 Completed IV 03/26/24 1223 03/26/24 1434 naloxone (Narcan) injection 0.04 mg -- Verified IV POST-OP MULTIPLE 03/26/24 1434 03/26/24 1257 ondansetron (Zofran) injection -- Sent IV PRN 03/26/24 1257 03/26/24 1434 ondansetron (Zofran) injection 4 mg -- Verified IV ONCE PRN 03/26/24 1434 03/26/24 1434 oxyCODONE (immediate release) (Roxicodone) tablet 5 mg -- Verified PO ONCE PRN 03/26/24 1434 03/26/24 1311 phenylephrine 100 mcg/mL injection -- Sent IV PRN 03/26/24 1311 03/26/24 1434 prochlorperazine (Compazine) injection 10 mg -- Verified IV ONCE PRN 03/26/24 1434 03/26/24 1249 propofol (Diprivan) injection -- Sent IV CONTINUOUS PRN 03/26/24 1251 03/26/24 1045 scopolamine (Transderm-Scop) 1 patch See Hyperspace for full Linked Orders Report. 03/29/24 1047 Verified TD ONCE 03/26/24 1027 03/26/24 1030 scopolamine patch placement confirmation See Hyperspace for full Linked Orders Report. 03/29/24 205 Verified TD 2 TIMES DAILY 03/26/24 1027 Post-op Diagnosis: * Diagnosis unknown [R69] . No Known Allergies Vitals: No data found. Lines, Drains, and Airways Type Details Placement Removal Peripheral IV Date: 03/26/24; Time: 1043; Orientation: Left, Posterior; Location: Hand; Gauge: 20 G; Locals: Injectable 03/26/24 1044 by Bere Martínez RN Intraprocedure I/O Totals Intake lactated ringers infusion 1000.00 mL Total Intake 1000 mL Patient Transfer Location: PACU Transport Airway: spontaneous respirations Complications: None Handoff Given? Yes Checklist or Protocol - The cortes handoff elements that must be included in the transfer of care checklist include: 1. Identification of patient. 2. Identification of responsible practitioner (PACU nurse or advanced practitioner). 3. Discussion of pertinent medical history. 4. Discussion of the surgical/procedure course (procedure, reason for surgery, procedure performed). 5. Intraoperative anesthetic management and issue/concerns. 6. Expectations/Plans for the early post-procedure period. 7. Opportunity for questions and acknowledgement of understanding of report from the receiving PACUteam. CHANA aGrcia documented in this encounter Plan of Treatment Not on file documented as of this encounter Procedures Procedure Name Priority Date/Time Associated Diagnosis Comments PERIPHERAL BLOCK Routine 03/26/2024 12:2 0 PM CDT documented in this encounter Results * Peripheral Nerve Block (03/26/2024 12:20 PM [...] Tristan Vela MD GENERAL ANESTHESIA O RDERABLES documented in this encounter Visit Diagnoses Not on filedocumented in this encounter Administered Medications Inactive Administered Medications - up to 3 most recent administrations Medication Order MAR Action Action Date Dose Rate Site BUPivacaine 0.5% - EPINEPHrine 1:200,000 (PF) injection Infiltration, Starting on Sun03/26/24 at 1215, Until Sun03/26/24 at 1215, Anesthesia Intra-op $ Given 03/26/2024 12:15 PM CDT 30 mL ceFAZolin (Ancef) 2 g in 0.9% NaCl IV 50 mL IVPB 2 g, at 100 mL/hr, Intravenous, ONCE, 1 dose, On Sun03/26/24 at 1030, Administer??within 60 minutes??before surgical incision to ensure adequate antibiotic concentration at surgical sites at the time of incision.??Antibiotic infusion must be completed ZERO-TEN minutes?? prior to incision or tourniquet, Indication for anti-infective therapy: Surgical prophylaxis, Pre-op $ New Bag/Syringe 03/26/2024 12:50 PM CDT 2 g dexmedeTOMIDine (Precedex) injection Intravenous, PRN, Starting on Sun03/26/24 at 1250, Until Sun03/26/24 at 1440, Anesthesia Intra-op $ Given 03/26/2024 1:16 PM CDT 5 mcg $ Given 03/26/2024 12:50 PM CDT 10 mcg diphenhydrAMINE (Benadryl) injection Intravenous, PRN, Starting on Sun03/26/24 at 1250, Until Sun03/26/24 at 1440, Anesthesia Intra-op $ Given 03/26/2024 12:50 PM CDT 25 mg fentaNYL (PF) (Sublimaze) injection Intravenous, Starting on Sun03/26/24 at 1210, Until Sun03/26/24 at 1403, Anesthesia Intra-op $ Given 03/26/2024 2:03 PM CDT 25 mcg $ Given 03/26/2024 1:28 PM CDT 25 mcg $ Given 03/26/2024 12:10 PM CDT 100 mcg glycopyrrolate (Robinul) injection Intravenous, PRN, Starting on Sun03/26/24 at 1428, Until Sun03/26/24 at 1440, Anesthesia Intra-op $ Given 03/26/2024 2:28 PM CDT 0.2 mg lactated ringers infusion at 100 mL/hr, Intravenous, CONTINUOUS, Starting on Sun03/26/24 at 1030, Until Sun03/26/24 at 1732, Pre-op $ New Bag/Syringe 03/26/2024 2:24 PM CDT Restarted 03/26/2024 12:45 PM CDT $ New Bag/Syringe 03/26/2024 10:48 AM CDT 100 m L/hr lidocaine (Xylocaine) 1 % injection Infiltration, Starting on Sun03/26/24 at 1213, Until Sun03/26/24 at 1213, Anesthesia Intra-op $ Given 03/26/2024 12:13 PM CDT 3 mL lidocaine HCl (PF) (Xylocaine MPF) 2 % injection Intravenous, PRN, Starting on Sun03/26/24 at 1249, Until Sun03/26/24 at 1440, Anesthesia Intra-op $ Given 03/26/2024 12:49 PM CDT 60 mg midazolam (Versed) injection Intravenous, Starting on Sun03/26/24 at 1210, Until Sun03/26/24 at 1210, Anesthesia Intra-op $ Given 03/26/2024 12:10 PM CDT 2 mg ondansetron (Zofran) injection Intravenous, PRN, Starting on Sun03/26/24 at 1257, Until Sun03/26/24 at 1440, Anesthesia Intra-op $ Given 03/26/2024 12:57 PM CDT 4 mg phenylephrine 100 mcg/mL injection Intravenous, PRN, Starting on Sun03/26/24 at 1311, Until Sun03/26/24 at 1440, Anesthesia Intra-op $ Given 03/26/2024 2:24 PM CDT 100 mcg $ Given 03/26/2024 2:21 PM CDT 100 mcg $ Given 03/26/2024 2:13 PM CDT 50 mcg propofol (Diprivan) injection Intravenous, CONTINUOUS PRN, Starting on Sun03/26/24 at 1249, Until Sun03/26/24 at 1440, Anesthesia Intra-op Rate Change 03/26/2024 2:16 PM CDT 30 mcg/kg/min 10.53 mL/hr Rate Change 03/26/2024 2:13 PM CDT 50 mcg/kg/min 17.55 mL/ hr Rate Change 03/26/2024 1:19 PM CDT 100 mcg/kg/min 35.1 mL/ hr documented in this encounter Care Teams Dry Wall Installer Relationship Specialty Start Date End Date Siva Burgos MD [address] [place] [address] PCP - General Internal Medicine 07/06/22 documented as of this encounter
--- OUTSIDE RECORDS SUMMARY | 2024-06-23 18:19 | XMS_ITS | Encounter Summary ---
Author Organization [facility] Address [address] [place] [address] Care Team Providers Care Vp Business Development Name Role Phone Siva Burgos MD Primary Care Provider Reason for Referral * OP/Amb RFL Auth (Routine) - Open Specialty Diagnoses / Procedures Referred By Travis elizabeth Referred To Contact Diagnoses Primary osteoarthritis of first carpometacarpal joint of left hand Procedures OR DRAIN/INJECT SMALL JOINT/BURSA Mika Leonard APRN-CONTRACT ADMINISTRATOR [address] [facility] [address] [place] [address] Referral ID Status Reason Start Date Expiration Date Visits Re quested Visits Authorized [id number] Open 05/08/2024 05/08/2025 1 1 RATIONS MANAGER Reason for Visit * Reason Comments Surgical Follow-up Encounter Details Date Type Department Care Team (Latest Contact Info) Description 05/08/2024 10:45 AM ALTERATIONS MANAGER Office Visit [facility] - Orthopedic Surgery [address] [place] [address] Mika Leonard APRN-CONTRACT ADMINISTRATOR [address] [place], [place] [id number] Arthritis of carpometacarpal (CMC) joint of right thumb (Primary Dx); Primary osteoarthritis of first carpometacarpal joint of left hand; Follow-up examination after orthopedic surgery Social History Tobacco Use Types Packs/Day Years [...] this encounter Progress Notes * Mika Leonard, SUPERVISOR WARPING DEPARTMENT-CONTRACT ADMINISTRATOR - 05/08/2024 9:12 PM CST Images from the original note were not included. Chief Complaint: 6 week(s) post Right first carpometacarpal joint arthroplasty with ligament reconstruction using free tendon graft History of Present Illness: Since the last visit the patient has been attending hand therapy. She has returned to work and is wearing her brace. She reports her hand is easily fatigued. She endorses minor hypersensitivity to her incision. From prior visit on 04/10/24: The patient reports that the pain is [...] sorted in reverse-chronological order 04/25/2023 09/05/2023 02/29/2024 05/08/2024 Patient-Reported Satisfaction Current state satisfactory? No No No Yes Prior treatment? No Yes - non-surgical treatment Yes - non-surgical treatment Yes - surgery Function since surgery Improved Function since treatment Worse Slightly Improved Currently taking narcotics? No No No No 04/25/2023 09/05/2023 02/29/2024 05/08/2024 PROMIS Upper Extremity PROMIS UE Function Score 35 (moderate dysfunction) 28 (severe dysfunction) 26 (severe dysfunction) 35 (moderate dysfunction) 04/25/2023 09/05/2023 02/29/2024 05/08/2024 PROMIS Pain Interference PROMIS PI Score 56 (mild) 62 (moderate) 63 (moderate) 47 (within normal limits) 04/25/2023 09/05/2023 02/29/2024 04/03/2024 05/08/2024 Patient-entered QuickDASH Laterality Right Right Left Right Right QuickDASH Score 36.36 52.27 47.73 81.82 47.73 04/25/2023 09/05/2023 02/29/2024 04/03/2024 05/08/2024 Depression Screening PHQ-2 Score Incomplete Incomplete Incomplete Incomplete Incomplete Patient Health Questionnaire-2 [...] Resource Strain: Patient Declined (02/12/2024) Received from [facility], [facility] Overall Financial Resource Strain (CARDIA) Difficulty of Paying Living Expenses: Patient declined Food Insecurity: Patient Declined (02/12/2024) Received from [facility], [facility] Hunger Vital Sign Worried About Running Out of Food in the Last Year: Patient declined Ran Out of Food in the Last Year: Patient declined Transportation Needs: Patient Declined (02/12/2024) Received from [facility], [facility] PRAPARE - Transportation Lack of Transportation (Medical): Patient declined Lack of Transportation (Non-Medical): Patient declined Stress: Patient Declined (02/12/2024) Received from [facility], [facility] - Occupational Stress Questionnaire Feeling of Stress : Patient declined Housing Stability: Unknown (02/12/2024) Received from [facility], [facility] Housing Stability Vital Sign Unable to Pay [...] (two) sprays once daily as needed HYDROcodone-acetaminophen ([place]) 5-325 MG tablet Take 1 (one) tablet [...] upper extremity: CMCJ surgical wound well approximated and healed. No signs of infection, no erythema, no discharges. Mild pain and stiffness Range of motion improved- touches thumb to distal tip of 5th finger. Left upper extremity: + thumb load and grind test. + tenderness with palpation of CMCJ Radiographs: I independently viewed and interpreted the right hand xray images, showing interval resection of trapezium- an expected post surgical change s/p thumb CMCJ arthroplasty. Chart review: I reviewed the patient's chart including previous visits, radiographic imaging and all relevant exams. Assessment: 6 week(s) post Right first carpometacarpal joint arthroplasty with ligament reconstruction using free tendon graft, and left thumb CMCJ arthritis. . Plan: The patient is doing doing well. Discontinue brace Continue hand therapy. The risks and benefits of a corticosteroid injection were discussed with the patient, who voiced their understanding and elected to proceed with: Corticosteroid injection into the left thumb CMCJ today- Follow up as needed. Future Visit: as needed for worsening or new concerns. SLIME Castellano APRN Hand and Upper Extremity Nurse Practitioner In collaboration with Dr. Morgan Tadeo and Dr. Hipolito Cat [facility] - [facility] - [address] [place] [address] For Appointments: [facility] [facility], [address] [facility] For Appointments: RATIONS MANAGER documented in this encounter Procedure Notes * Mika Leonard APRN-CNP - 05/08/2024 9:24 PM CST Images from the original note were not included. Thumb Carpo-Metacarpal Joint Injection Procedure Note Pre-operative Diagnosis: left thumb CMCJ arthritis. Post-operative Diagnosis: same Indications: same Procedure Details: Consent was obtained for the procedure. The dorsal area of the left thumb CMCJ was prepped with alcohol. Using a 27G needle, the CMC joint was infiltrated with 10 mg Kenalog + 0.25 ml 1% lidocaine. An appropriate band-aid was applied. The patient tolerated the procedure well. Complications: none Mika Leonard APRN, COMMUNITY HEALTH AGENT-C Hand and Upper Extremity Nurse Practitioner In collaboration with Dr. Morgan Tadeo and Dr. Hipolito Carrillo [facility] - [facility] - [address] [place] [address] For Appointments: [facility] [place] [address], [facility] [address] [facility] For Appointments: RATIONS MANAGER documented in this encounter Plan of Treatment Not on file documented as of this encounter Visit Diagnoses Diagnosis Arthritis of carpometacarpal (CMC) joint of right thumb- Primary Primary osteoarthritis of first carpometacarpal joint of left hand Primary localized osteoarthrosis, hand Follow-up examination after orthopedic surgery Follow-up examination, following other surgery documented in this encounter Administered Medications Inactive Administered Medications - up to 3 most recent administrations Medication Order MAR Action Action Date Dose Rate Site lidocaine (Xylocaine) 1 % injection Infiltration, ONCE, 1 dose, On [place] 05/08/24 at 1200 $ Given 05/08/2024 11:39 AM ALTERATIONS MANAGER Finger Left Hand triamcinolone acetonide (Kenalog-40) injection 10 mg 10 mg, Infiltration, ONCE, 1 dose, On [place] 05/08/24 at 1200, Shake well before using. $ Given 05/08/2024 11:40 AM ALTERATIONS MANAGER 10 mg Finger Left Hand documented in this encounter Care Teams Vp Business Development Relationship Specialty Start Date End Date Siva Burgos MD [address] [place] [address] PCP - General Internal Medicine 07/06/22 documented as of this encounter
--- OUTSIDE RECORDS SUMMARY | 2024-06-23 18:19 | XMS_ITS | Encounter Summary ---
Author Organization [facility] Address [address] [facility] [place] [address] Care Team Providers Care Operator/Assistant Foreman Name Role Phone Siva Burgos MD Primary Care Provider [phone] Reason for Referral * Independent Medical Evaluation (Routine) - Pending Review Specialty Diagnoses / Procedures Referred By Travis t Referred To Contact Diagnoses Arthritis of carpometacarpal (CMC) joint of right thumb Hipolito Cat MD [address] [place] [phone] Mallorie Coates OT Referral ID Status Reason Start Date Expiration Date Visits Requested Visits Authorized [id number] Pending Review Specialty Services Required 03/28/2025 12 12 Encounter Details Date Type Department Care Team (Late st Contact Info) Description 03/28/2024 Orders Only [facility] - Orthopedics [address] [place] [address], [place] [address] Hipolito Cat MD [address] [place] [phone] Arthritis of carpometacarpal (CMC) joint of right [...] as of this encounter Plan of Treatment Scheduled Referrals Name Type Priority Associated Diagnoses Orde r Schedule AMB REFERRAL TO OCCUPATIONAL THERAPY Outpatient Referral Routine Arthritis of carpometacarpal (CMC) joint of right thumb 1 Occurrences starting 03/28/2024 until 03/13/2025 documented as of this encounter Visit Diagnoses Diagnosis Arthritis of carpometacarpal (CMC) joint of right thumb- Primary documented in this encounter Care Teams Operator/Assistant Foreman Relationship Specialty Start Date End Date Siva Burgos MD [address] [place] [address] PCP - General Internal Medicine 07/06/22 documented as of this encounter
--- OUTSIDE RECORDS SUMMARY | 2024-06-23 18:19 | XMS_ITS | Patient Health Summary ---
Author Organization [facility] Address [address] [place] [address] Care Team Providers Care Supervisor Photoengraving Name Role Phone Siva Burgos MD Primary Care Provider [phone] Note from [facility],non-owned Affiliates and Associated Physician Practices is amultiple site organization consisting of ambulatory clinics and hospital sitesin [place], [place], [place] and [place]. This disclosure is being madepursuant to the Care Everywhere program and may not contain all information available regarding this patient. Last updated 18.[facility] Allergies No known active allergies Medications * Be aware that medications may not be up to date on this document. Alwaysverify current medications with the patient. * meloxicam (Mobic) 15 MG tablet(Started 08/08/2022) Take 1 (one) tablet by mouth once daily 1 refill by 08/08/2023 * hydroxychloroquine (Plaquenil) 200 MG tablet(Started 11/06/2023) TAKE 1 TABLET BY MOUTH EVERY DAY 1 refill by 11/05/2024 * magnesium 250 MG tablet Take 1 (one) tablet by mouth once daily * fluticasone propionate (Flonase) 50 MCG/ACT nasal spray(Started 04/26/2023) 2 (two) sprays once daily as needed * meclizine (Antivert) 25 MG tablet(Started 11/02/2023) Take 1 (one) tablet by mouth 3 times daily as needed * acetaminophen (Tylenol) 325 MG tablet(Started 08/04/2023) Take 1 (one) tablet by mouth every 6 hours as needed * cyanocobalamin (Vitamin B-12) 100 MCG tablet Take 1 (one) tablet by mouth once daily * docusate sodium (Colace) 100 MG capsule(Started 03/26/2024) Take 1 (one) capsule by mouth 2 times daily as needed for Constipation Reasons: Constipation * ibuprofen (Motrin) 400 MG tablet(Started 03/26/2024) Take 1 (one) tablet by mouth every 6 hours as needed for Pain Reasons: Fever, Pain * acetaminophen (TYLENOL) 500 MG tablet(Started 03/26/2024) Take 2 (two) tablets by mouth every 8 hours as needed for Fever or Pain Maximum allowable Acetaminophen amount = 4 Grams (4000 mg) / 24 hours. * HYDROcodone-acetaminophen (Whittington) 5-325 MG tablet(Started 03/26/2024) Take 1 (one) tablet by mouth every 6 hours as needed for Pain Reasons: Pain * sennosides (Senna Lax) 8.6 MG tablet(Started 03/26/2024) Take 1 (one) tablet by mouth 2 times daily as needed for Constipation Take while using narcotic pain medications, then take as needed for constipation Active Problems No known active problems Immunizations * FLU VACCINE TRI IIV3 SPLIT PF IM (FLUVIRIN)(Given 03/17/2019) * iNFLUENZA VACCINE, RECOM-VELAZQUEZ, QUADR. (FLUBLOCK QUADRIVALENT; 18Y+) (RIV4)(Given 07/06/2022) Social History Tobacco Use Types Packs/Day Years [...] Mass Index 23.22 03/26/2024 10:36 AM CDT Medical Devices Implanted Type Area Brake Adjuster Device Identifier Shelf Expiration Date Model / Serial / Lot Sys Intnl Fx Fiberlock Fiberlock Spns Implanted:Qty: 1 on 03/26/2024 by Hipolito Cat MD at [facility] Right: Hand [employer] 10/15/2028 [id number] / / [id number] Description:Base of thumb Procedures * XR HAND RIGHT 3VW OR MORE(Performed 04/10/2024) Performed for Arthritis of carpometacarpal (CMC) joint of right thumb * IMAGING/RADIOLOGY/XRAY RESULTS ORDER(Performed 03/29/2024) * CARDIAC RHYTHM STRIP ORDER(Performed 03/29/2024) * XR HAND RIGHT 3VW OR MORE(Performed 03/26/2024) Performed for Pain * FL VILMA SURGERY(Performed 03/26/2024) Performed for Pain * OR REPAIR INTERCARP/CARP-METACARP JT(Performed 03/26/2024) Performed for Diagnosis unknown * PERIPHERAL BLOCK(Performed 03/26/2024) * RNA POLYMERASE III ANTIBODY IGG(Performed 02/12/2023) Performed for Scleroderma (HCC) * SCLEROSIS 12 ANTIBODY PNL(Performed 02/12/2023) Performed for Scleroderma (HCC) * CARDIAC EKG ORDER(Performed 01/01/2023) * URINALYSIS REFLEX MICROSCOPIC REFLEX CULTURE(Performed 12/29/2022) * MAGNESIUM BLOOD(Performed 12/29/2022) * COMPREHENSIVE METABOLIC PANEL(Performed 12/29/2022) * CBC W AUTO DIFFERENTIAL(Performed 12/29/2022) * CK BLOOD(Performed 12/29/2022) * EKG 12-LEAD(Performed 12/29/2022) Performed for Heat exhaustion, initial encounter * PFT-LAB(Performed 10/13/2022) Performed for Scleroderma (HCC), CREST syndrome (HCC) * ECHO COMPLETE(Performed 10/13/2022) Performed for Scleroderma (HCC), CREST syndrome (HCC) * SCLERODERMA 70 (SCL) ANTIBODY(Performed 08/10/2022) * CENTROMERE B ANTIBODIES(Performed 08/10/2022) Performed for Positive LIAM (antinuclear antibody) * MRI ANKLE LEFT WWO CONTRAST(Performed 07/23/2022) Performed for Achilles tendinosis of left lower extremity * CREATININE - POCT INTERFACED(Performed 07/23/2022) * LIAM BLOOD TITER(Performed 07/06/2022) * DNA ANTIBODY DS CRITHIDIA W/REFLEX TITER(Performed 07/06/2022) * SUPERVISOR LIVESTOCK YARD ANTIBODY(Performed 07/06/2022) Performed for Polyarthralgia * DAVIS (SM) ANTIBODY BURAK(Performed 07/06/2022) Performed for Polyarthralgia * SS-B (SJOGREN'S) ANTIBODY(Performed 07/06/2022) Performed for Polyarthralgia * SS-A (SJOGREN'S) ANTIBODY(Performed 07/06/2022) Performed for Polyarthralgia * LIAM BLOOD SCREEN W/REFLEX TITER(Performed 07/06/2022) Performed for Polyarthralgia * ERYTHROCYTE SEDIMENTATION RATE(Performed 07/06/2022) Performed for Polyarthralgia * C-REACTIVE PROTEIN(Performed 07/06/2022) Performed for Polyarthralgia * COMPREHENSIVE METABOLIC PANEL(Performed 07/06/2022) Performed for Polyarthralgia * CBC W AUTO DIFFERENTIAL(Performed 07/06/2022) Performed for Polyarthralgia * HLA TYPING B27(Performed 07/06/2022) Performed for Polyarthralgia * RHEUMATOID FACTOR BLOOD QUANTITATIVE(Performed 07/06/2022) Performed for Polyarthralgia * CYCLIC CITRULLINATED PEPTIDE(CCP) AB IGG(Performed 07/06/2022) Performed for Polyarthralgia * XR SI JOINTS 3VW OR MORE(Performed 07/06/2022) Performed for Polyarthralgia * XR WRIST RIGHT 3VW OR MORE(Performed 07/06/2022) Performed for Polyarthralgia * XR WRIST LEFT 3VW OR MORE(Performed 07/06/2022) Performed for Polyarthralgia * XR HAND RIGHT 3VW OR MORE(Performed 07/06/2022) Performed for Polyarthralgia * XR HAND LEFT 3VW OR MORE(Performed 07/06/2022) Performed for Polyarthralgia Results * XR Hand Right 3Vw or More (04/10/2024 10:24 AM CDT) Only the most recent of3 resultswithin the time period is included. 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 Hipolito Cat MD FLUOROSCOPY ORDERABL ES Performing Organization Address City/State/[facility] Co de Phone Number [facility] [address] [place] [address] * Peripheral Nerve Block (03/26/2024 12:20 PM [...] Tristan Vela MD GENERAL ANESTHESIA O RDERABLES * (ABNORMAL) SCLEROSIS 12 ANTIBODY PNL (02/12/2023 7:36 AM CDT) SCL-70 <11 <11 [facility] Centromere protein A Antibody <11 <11 [facility] Centromere protein B Antibody 86(H) <11 [facility] RP11 <11 <11 [facility] RP11 <11 <11 [facility] U1 small nuclear ribonucleoprotein A Antibody <11 <11 [facility] U1 small nuclear ribonucleoprotein C Antibody <11 <11 [facility] U1 small nuclear ribonucleoprotein 70kD Antibody <11 <11 [facility] Fibrillarin <11 <11 [facility] TH/TO <11 <11 [facility] PM/SCL 100 <11 <11 [facility] PM/SCL 75 <11 <11 [facility] Comment: The [employer] (ACR) considers anti-Scl-70 (also known as anti-topoisomerase I), anti-centromere and/or anti-RNA polymerase III antibodies part of the classification criteria for Systemic Sclerosis(SSc) given that the antibodies are present in 30%-60% of patients with SSc. Centromere protein B (CENP B) antibody positivity is found in 64-95% of patients with a limited form of cutaneous systemic sclerosis i.e. CREST syndrome. The addition of centromere protein A (CENP A) antibody to CENP B antibody improves specificity for diagnosis of SSc. Patients presenting with diffuse cutaneous systemic sclerosis (dcSSc) and features of CREST may have both centromere (A & B) antibodies and Scl-70 antibodies. RNA polymerase III antibodies target RNAP III epitopes 11 (RP11) and 155 (RP155). Anti-RP11 antibody occurs in about 10% of scleroderma patients and anti-RP155 antibodies in about 8%. Zmey-J0-vqCGZ antibodies are associated with SSc and inflammatory myopathy overlap syndromes. Three major components of U1-snRNP are tested: U1-snRNP SUPERVISOR LIVESTOCK YARD A, U1-snRNP SUPERVISOR LIVESTOCK YARD C, U1-snRNP [id number]. The presence of U1-snRNP antibodies occur in 14% and 26% of Caucasians and Americans, respectively, in [place]. Anti-fibrillarin (anti-U3RNP) antibodies are specific for SSc, but are mutually exclusive from Scl-70, CENP, and RNAP III antibodies. Anti-U3RNP antibodies are detected in 4-10% of SSc patients, and when present are associated with dcSSc and frequently visceral renal and cardiac involvement. Fibrillarin antibodies are found more frequently in -[place] patients and when seen in this population, the antibodies are associated with severe pulmonary disease, pulmonary hypertension, severe small bowel involvement, and a poorer prognosis. Anti-Th/To antibodies are present in 1-13% of SSc patients, and are rarely found in other autoimmune diseases. Anti-Th/To antibodies are primarily associated with localized cutaneous systemic sclerosis (lcSSc). Anti-Th/To antibodies are also associated with pericarditis, interstitial lung disease and a high frequency of intrinsic pulmonary hypertension, and hence, a poorer prognosis. Autoantibodies to PM/Scl, the human exosome complex, are found in 4-11% of patients with SSc. PM/Scl antibodies have also been observed in polymyositis/SSc overlap syndromes and other autoimmune diseases. The majority of anti-PM/Scl reactivity is directed to one of two proteins: PM/Vgv475 and/or PM/Scl75. More information can be found at [email or web address] [email or web address] This test was developed and its analytical performance characteristics have been determined by [facility]. It has not been cleared or approved by FDA. This assay has been validated pursuant to the CLIA regulations and is used for clinical purposes. Test Performed at: [employer] [facility] [address] [place], [place] ??[phone] ADA DURAND MD,PHD,TIMMY Blood BLOOD SPECIMEN / Unknown 02/12/2023 7:36 AM CDT 02/12/2023 7:37 AM CDT Francisco Martino MD LAB - SEROLOGY ORDER PAMELA Performing Organization Address [facility] Co de Phone Number [facility] [address] [place] [address] * RNA POLYMERASE III ANTIBODY IGG (02/12/2023 7:36 AM CDT) [facility] RNA Polymerase 3 Antibody <20 <20 Units [facility] Comment: REPORT COMMENT: FASTING:YES Test Performed at: [employer] [facility] [address] [place], [place] ??[phone] ADA DURAND MD,PHD,TIMMY Blood BLOOD SPECIMEN / Unknown 02/12/2023 7:36 AM CDT 02/12/2023 7:37 AM CDT Francisco Martino MD LAB - SEROLOGY ORDER PAMELA Performing Organization Address [facility] Co de Phone Number [facility] [address] [place] [address] * CARDIAC EKG ORDER (01/01/2023 7:35 PM CDT) Narrative 01/01/2023 7:35 PM CDT Ordered by an unspecified provider. Scanned Document CARDIAC SERVICES ORD ERABLES * (ABNORMAL) URINALYSIS REFLEX MICROSCOPIC REFLEX CULTURE (12/29/2022 8:41 PM CDT) Color UA Yellow Straw, Yellow 12/29/2022 8:57 PM CDT [facility] Clarity UA Clear Clear 12/29/2022 8:57 PM CDT [facility] Glucose UA Negative Negative 12/29/2022 8:57 PM CDT [facility] Bilirubin UA Negative Negative 12/29/2022 8:57 PM CDT [facility] Ketone UA 1+(A) Negative 12/29/2022 8:57 PM CDT [facility] Specific Hope UA 1.015 1.005 - 1.030 12/29/2022 8:57 PM CDT [facility] Blood UA Negative Negative 12/29/2022 8:57 PM CDT [facility] pH UA 8.0 5.0 - 8.0 pH 12/29/2022 8:57 PM CDT [facility] Protein UA Negative Negative 12/29/2022 8:57 PM CDT [facility] Urobilinogen UA Negative Negative mg/dL 12/29/2022 8:57 PM CDT [facility] Nitrite UA Negative Negative 12/29/2022 8:57 PM CDT [facility] Leukocyte UA Negative Negative 12/29/2022 8:57 PM CDT [facility] Urine Microscopy Urine microscopy not indicated 12/29/2022 8:57 PM CDT [facility] Reflex Status Culture not indicated 12/29/2022 8:57 PM CDT [facility] Urine URINE SPECIMEN OBTAINED BY CLEAN CATCH PROCEDURE / Unknown Collection / Unknown 12/29/2022 8:41 PM CDT 12/29/2022 8:49 PM CDT Narrative [facility] - 12/29/2022 8:57 PM CDT Kathleen Beltrán ANIMAL BREEDER-FLEXOGRAPHIC PRINTING MACHINIST LAB - URIN ALYSIS ORDERABLES [facility] [address] [place] [address] * (ABNORMAL) CBC W AUTO DIFFERENTIAL (12/29/2022 8:41 PM CDT) Only the most recent of2 resultswithin the time period is included. WBC 10.0 4.4 - 10.7 x10E9/L 12/29/2022 8:55 PM CDT [facility] WBC Corrected 12/29/2022 8:55 PM CDT [facility] RBC 4.04 3.80 - 5.20 x10E12/L 12/29/2022 8:55 PM CDT [facility] Hemoglobin 12.7 12.0 - 15.6 gm/dL 12/29/2022 8:55 PM CDT [facility] Hematocrit 37.0 35.9 - 45.5 % 12/29/2022 8:55 PM CDT [facility] MCV 91.6 80.7 - 98.3 fl 12/29/2022 8:55 PM CDT [facility] MCH 31.4 26.7 - 34.0 pg 12/29/2022 8:55 PM CDT [facility] MCHC 34.3 30.8 - 35.9 gm/dL 12/29/2022 8:55 PM CDT [facility] Platelet Count 222 153 - 416 x10E9/L 12/29/2022 8:55 PM CDT [facility] RDW-CV 12.2 12.1 - 14.9 % 12/29/2022 8:55 PM CDT [facility] MPV 9.7 9.4 - 12.9 fl 12/29/2022 8:55 PM CDT [facility] Neutrophils % 73.2(H) 44.0 - 73.0 % 12/29/2022 8:55 PM CDT [facility] Lymphocytes % 19.4(L) 20.0 - 43.0 % 12/29/2022 8:55 PM CDT [facility] Monocytes % 5.5 5.0 - 13.0 % 12/29/2022 8:55 PM CDT [facility] Eosinophils % 0.9 0.0 - 6.0 % 12/29/2022 8:55 PM CDT [facility] Basophils % 0.7 0.0 - 2.0 % 12/29/2022 8:55 PM CDT [facility] Immature Granulocytes 0.3 0 - 1 % 12/29/2022 8:55 PM CDT [facility] Neutrophil Absolute 7.28(H) 2.01 - 7.14 x10E9/L 12/29/2022 8:55 PM CDT [facility] Lymphocytes Absolute 1.93 1.07 - 3.94 x10E9/L 12/29/2022 8:55 PM CDT [facility] Monocytes Absolute 0.55 0.26 - 1.07 x10E9/L 12/29/2022 8:55 PM CDT [facility] Eosinophils Absolute 0.09 0 - 0.47 x10E9/L 12/29/2022 8:55 PM CDT [facility] Basophils Absolute 0.07 0 - 0.08 x10E9/L 12/29/2022 8:55 PM CDT [facility] Immature Granulocytes Absolute 0.03 0.00 - 0.06 x10E9/L 12/29/2022 8:55 PM CDT [facility] nRBC Auto 0 /100 WBC 12/29/2022 8:55 PM CDT [facility] Blood BLOOD SPECIMEN / Unknown Venipuncture / Unknown 12/29/2022 8:41 PM CDT 12/29/2022 8:49 PM CDT Kathleen Beltrán ANIMAL BREEDER-FLEXOGRAPHIC PRINTING MACHINIST LAB - BJORN TOLOGY ORDERABLES [facility] [address] [place] [address] * (ABNORMAL) COMPREHENSIVE METABOLIC PANEL (12/29/2022 8:41 PM CDT) Only the most recent of2 resultswithin the time period is included. Glucose 107(H) 70 - 105 mg/dL 12/29/2022 9:07 PM CDT [facility] Sodium 143 136 - 145 mmol/L 12/29/2022 9:07 PM CDT [facility] Potassium 2.7(L) 3.5 - 5.1 mmol/L 12/29/2022 9:07 PM CDT [facility] Chloride 110(H) 98 - 107 mmol/L 12/29/2022 9:07 PM CDT [facility] CO2 20(L) 23 - 31 mmol/L 12/29/2022 9:07 PM CDT [facility] Calcium 9.5 8.4 - 10.4 mg/dL 12/29/2022 9:07 PM CDT [facility] Anion Gap 13 8 - 18 mmol/L 12/29/2022 9:07 PM CDT [facility] BUN 12 7 - 18.7 mg/dL 12/29/2022 9:07 PM CDT [facility] Creatinine 1.01 0.57 - 1.11 mg/dL 12/29/2022 9:07 PM CDT [facility] Alkaline Phosphatase 108 40 - 150 U/L 12/29/2022 9:07 PM CDT [facility] ALT 18 0 - 61 U/L 12/29/2022 9:07 PM CDT [facility] AST 26 5 - 34 U/L 12/29/2022 9:07 PM CDT [facility] Protein Total 6.4 6.4 - 8.3 gm/dL 12/29/2022 9:07 PM CDT [facility] Albumin 4.2 3.5 - 5.2 gm/dL 12/29/2022 9:07 PM CDT [facility] Bilirubin Total 0.7 0.2 - 1.2 mg/dL 12/29/2022 9:07 PM CDT [facility] eGFR by CKD-EPI 69(L) >=90 mL/min/1.7 3 m2 12/29/2022 9:07 PM CDT [facility] Blood BLOOD SPECIMEN / Unknown Venipuncture / Unknown 12/29/2022 8:41 PM CDT 12/29/2022 8:49 PM CDT Kathleen Beltrán ANIMAL BREEDER-FLEXOGRAPHIC PRINTING MACHINIST LAB - CHEM ISTRY ORDERABLES [facility] [address] [place] [address] * MAGNESIUM BLOOD (12/29/2022 8:41 PM CDT) Magnesium 1.7 1.6 - 2.6 mg/dL 12/29/2022 9:07 PM CDT [facility] Blood BLOOD SPECIMEN / Unknown Venipuncture / Unknown 12/29/2022 8:41 PM CDT 12/29/2022 8:49 PM CDT Kathleen Mark Beltrán ANIMAL BREEDER-FLEXOGRAPHIC PRINTING MACHINIST LAB - CHEM ISTRY ORDERABLES Performing Organization Address [facility]/ZIP Co de Phone Number [facility] [address] [place] [address] * CK BLOOD (12/29/2022 8:41 PM CDT) CK 87 29 - 168 U/L 12/29/2022 9:07 PM CDT [facility] Blood BLOOD SPECIMEN / Unknown Venipuncture / Unknown 12/29/2022 8:41 PM CDT 12/29/2022 8:49 PM CDT Kathleen Mark Beltrán ANIMAL BREEDER-FLEXOGRAPHIC PRINTING MACHINIST LAB - CHEM ISTRY ORDERABLES Performing Organization Address [facility] de Phone Number [facility] [address] [place] [address] * EKG 12-LEAD (12/29/2022 8:35 PM CDT) Ventricular Rate 60 BPM [facility] Atrial Rate 60 BPM [facility] P-R Interval 116 ms [facility] QRS Duration ms 88 ms [facility] Q-T Interval ms 414 ms [facility] QTC Calculation (Bezet) 414 ms [facility] Calculated P [place] 0 degrees [facility] Calculated R [place] 57 degrees [facility] Calculated T [place] 44 degrees [facility] Interpretation EKG Normal sinus rhythm Normal ECG No previous ECGs available Confirmed by CAM MERAZ, RACHID HINOJOSA ([id number]) on 01/01/2023 10:19:53 AM [facility] 12/29/2022 8:35 PM CDT 01/01/2023 10:19 AM CDT Kathleen Mark Beltrán ANIMAL BREEDER-FLEXOGRAPHIC PRINTING MACHINIST ECG ORDERA BLES Performing Organization Address City/[facility]/ZIP Co de Phone Number [facility] * Complete PFT [facility] PFT Lab (10/13/2022 12:23 PM CDT) Narrative Pedro Pablo Bradshaw RCP - 10/13/2022 12:23 PM CDT Pedro Pablo Bradshaw RCP ? 07/26/2023 ??3:41 PM Francisco Martino MD RESPIRATORY THERAPY ORDERABLES * ECHO COMPLETE (10/13/2022 9:49 AM CDT) Anatomical Region Laterality Modality Chest Echo 10/13/2022 9:0 7 AM CDT Narrative Procedure Note Annita Roe MD - 10/13/2022 Francisco Martino MD ECHOCARDIOGRAPHY RAD IANT * (ABNORMAL) CENTROMERE B ANTIBODIES (08/10/2022 7:39 AM DIESEL TECHNOLOGY INSTRUCTOR) Centromere B Antibody >8.0 POS(A) <1.0 NEG [facility] Comment: REPORT COMMENT: FASTING:YES Test Performed at: [employer] [place], [place] ??[phone] LYUBOV RODGERS MD Blood BLOOD SPECIMEN / Unknown 08/10/2022 7:39 AM DIESEL TECHNOLOGY INSTRUCTOR 08/10/2022 7:45 AM DIESEL TECHNOLOGY INSTRUCTOR Francisco Martino MD LAB - SEROLOGY ORDER PAMELA [facility] [address] [place] [address] * SCLERODERMA 70 (SCL) ANTIBODY (08/10/2022 7:39 AM DIESEL TECHNOLOGY INSTRUCTOR) SCL-70 Antibody <1.0 NEG <1.0 NEG [facility] Comment: Test Performed at: [facility] [address] [place], [place] ??[phone] LYUBOV RODGERS MD 08/10/2022 7:39 AM DIESEL TECHNOLOGY INSTRUCTOR 08/10/2022 7:45 AM DIESEL TECHNOLOGY INSTRUCTOR Francisco Martino MD LAB - CHEMISTRY [facility] Organization Address City/State/ZIP Co de Phone Number [facility] [address] [place] [address] * MRI ANKLE LEFT WWO CONTRAST (07/23/2022 10:49 AM DIESEL TECHNOLOGY INSTRUCTOR) Anatomical Region Laterality Modality Ankle / Foot, Lower Extremity Ma gnetic Resonance 07/24/2022 8:02 AM DIESEL TECHNOLOGY INSTRUCTOR Impressions 07/24/2022 8:26 AM DIESEL TECHNOLOGY INSTRUCTOR IMPRESSION: 1. The Achilles tendon is normal. 2. 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 3. A 3 mm cystic osteochondral lesion at the lateral aspect of the talar dome. 4. No evidence of synovitis or tenosynovitis. > Interpreting Provider: Yandel Crawford MD on 07/24/2022 8:26 AM Narrative 07/24/2022 8:26 AM DIESEL TECHNOLOGY INSTRUCTOR PROCEDURE: ??MRI ANKLE LEFT WWO CONTRAST, DATE/TIME OF EXAM: ??07/23/2022 10:52 AM, LOCATION [facility] INDICATION: M67.88: Achilles tendinosis of left lower extremity ADDITIONAL CLINICAL INFORMATION: Ordering Provider Reason For Exam: ??persistent left Achilles pain. X rays negative. Technologist Note: Additional: COMPARISON: None. TECHNIQUE: MRI of the left ankle was performed utilizing multiple pulse sequences in multiple planes without gadolinium. CONTRAST: ?? GADOBUTROL 1 MMOL/ML IV SSM SO:6 mL FINDINGS: Marrow signal is normal. There is no fracture. There is no avascular necrosis. No effusion is present. There is no significant arthritis. There is a small focus of subchondral cystic change and bone marrow edema at the lateral aspect of the talar dome measuring 3 mm compatible with a cystic osteochondral lesion (series 10 image 17). ??The articular cartilage at the ankle and subtalar joints is intact. There is mild cartilage thinning at the dorsal aspect of the calcaneocuboid joint with subchondral cysts and bone marrow edema (series 4 image 13). The articular cartilage at the talonavicular joint is normal and there is a spur dorsally (series 3 image 16). The cartilage at the midfoot and tarsometatarsal joints is intact. The anterior talofibular ligament, calcaneofibular ligament, posterior talofibular ligament are intact. The deltoid ligament is intact. There is mild cystic change/bone marrow edema in the medial aspect of the talar dome of the deltoid ligament attachment (series 10 image 17). The posterior medial tendons including the posterior tibial, flexor digitorum longus, flexor hallucis longus are normal. The posterior lateral tendons including the peroneus longus and brevis are normal. The anterior extensor tendons including the tibialis anterior, extensor hallucis longus, extensor digitorum longus are normal. There is no disproportionate fluid or enhancement around any of these tendons to suggest tenosynovitis. ?? The Achilles tendon is intact and demonstrates normal thickness and signal. There is a small amount of fluid within the retrocalcaneal bursa which can be within normal limits. There is no increased enhancement around the Achilles tendon to suggest inflammation. The bone marrow signal in the calcaneus at its insertion is normal. Kager's fat appears normal. The sinus tarsi is unremarkable. The plantar fascia is normal in thickness and signal. ??Muscle bulk and signal are satisfactory. No fluid collection is seen. ?? Procedure Note Yandel Crawford MD - 07/24/2022 PROCEDURE: MRI ANKLE LEFT WWO CONTRAST, DATE/TIME OF EXAM: 0:52 AM, LOCATION [facility] INDICATION: M67.88: Achilles tendinosis of left lower extremity ADDITIONAL CLINICAL INFORMATION: Ordering Provider Reason For Exam: persistent left Achilles pain. Xrays negative. Technologist Note: Additional: COMPARISON: None. TECHNIQUE: MRI of the left ankle was performed utilizing multiple pulse sequencesin multiple planes without gadolinium. CONTRAST: GADOBUTROL 1 MMOL/ML IV SSM SO:6 mL FINDINGS: Marrow signal is normal. There is no fracture. There is no avascular necrosis. No effusion is present. There is no significant arthritis. There is a small focus of subchondral cystic change and bone marrowedema at the lateral aspect of the talar dome measuring 3 mm compatible with a cystic osteochondral lesion (series 10 image 17). The articularcartilage at the ankle and subtalar joints is intact. There is mild cartilage thinning at the dorsal aspect of the calcaneocuboid joint withsubchondral cysts and bone marrow edema (series 4 image 13). The articular cartilageat the talonavicular joint is normal and there is a spur dorsally (series 3 image 16). The cartilage at the midfoot and tarsometatarsal joints is intact. The anterior talofibular ligament, calcaneofibular ligament, posterior talofibular ligament are intact. The deltoid ligament is intact. Thereis mild cystic change/bone marrow edema in the medial aspect of the talardome of the deltoid ligament attachment (series 10 image 17). The posterior medial tendons including the posterior tibial, flexor digitorum longus, flexor hallucis longus are normal. The posteriorlateral tendons including the peroneus longus and brevis are normal. Theanterior extensor tendons including the tibialis anterior, extensor hallucislongus, extensor digitorum longus are normal. There is no disproportionate fluidor enhancement around any of these tendons to suggest tenosynovitis. The Achilles tendon is intact and demonstrates normal thickness andsignal. There is a small amount of fluid within the retrocalcaneal bursa whichcan be within normal limits. There is no increased enhancement around the Achilles tendon to suggest inflammation. The bone marrow signal in the calcaneus at its insertion is normal. Kager's fat appears normal. The sinus tarsi is unremarkable. The plantar fascia is normal in thickness and signal. Muscle bulk and signal are satisfactory. No fluid collection is seen. IMPRESSION: 1. The Achilles tendon is normal. 2. 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 3. A 3 mm cystic osteochondral lesion at the lateral aspect of the talar dome. 4. No evidence of synovitis or tenosynovitis. > Interpreting Provider: Yandel Crawford MD on 07/24/2022 8:26 AM Francisco Martino MD MR ORDERABLES * CREATININE - POCT INTERFACED (07/23/2022 9:25 AM DIESEL TECHNOLOGY INSTRUCTOR) Creatinine POCT 0.75 0.30 - 1.30 mg/dL 07/23/2022 9:27 AM DIESEL TECHNOLOGY INSTRUCTOR [facility] eGFR >90 >90 mL/min/1.7 3 m2 07/23/2022 9:27 AM [facility] Blood BLOOD SPECIMEN / Unknown 07/23/2022 9:25 AM DIESEL TECHNOLOGY INSTRUCTOR 07/23/2022 9:27 AM DIESEL TECHNOLOGY INSTRUCTOR Francisco Martino MD LAB - POINT OF CARE ORDERABLES Performing Organization Address City/[facility]/ZIP Co de Phone Number [id number] [place] [address], [place] [phone] * DNA ANTIBODY DS CRITHIDIA W/REFLEX TITER (07/06/2022 10:32 AM DIESEL TECHNOLOGY INSTRUCTOR) dsDNA Antibody Crithidia IFA NEGATIVE NEGATIVE [facility] Comment: Test Performed at: [facility] [address] ??[id number] CARLOS COLON MD 07/06/2022 10:3 2 AM DIESEL TECHNOLOGY INSTRUCTOR 07/06/2022 10:37 AM DIESEL TECHNOLOGY INSTRUCTOR Francisco Martino MD LAB - HEMATOLOGY ORD ERABLES Performing Organization Address [facility] Co de Phone Number [facility] [phone] [place] [address] * DAVIS (SM) ANTIBODY BURAK (07/06/2022 10:32 AM DIESEL TECHNOLOGY INSTRUCTOR) SM Antibody <1.0 NEG <1.0 NEG AI [facility] Comment: Test Performed at: [facility] [address] [place], [place] ??[phone] SKY GODINEZ DO,MPH Blood BLOOD SPECIMEN / Unknown 07/06/2022 10:32 AM DIESEL TECHNOLOGY INSTRUCTOR 07/06/2022 10:37 AM DIESEL TECHNOLOGY INSTRUCTOR Francisco Martino MD LAB - CHEMISTRY ORDE RABLES Performing Organization Address City/[facility] Co de Phone Number [facility] [phone] [place] [address] * SUPERVISOR LIVESTOCK YARD ANTIBODY (07/06/2022 10:32 AM DIESEL TECHNOLOGY INSTRUCTOR) SUPERVISOR LIVESTOCK YARD Antibody <1.0 NEG <1.0 NEG AI [facility] Comment: Test Performed at: [facility] [place] [address] [place], [place] ??[phone] SKY GODINEZ DO,MPH Blood BLOOD SPECIMEN / Unknown 07/06/2022 10:32 AM DIESEL TECHNOLOGY INSTRUCTOR 07/06/2022 10:37 AM DIESEL TECHNOLOGY INSTRUCTOR Francisco Matrino MD LAB - CHEMISTRY [facility] Performing Organization Address [facility] de Phone Number [facility] [address] [place] [address] * RHEUMATOID FACTOR BLOOD QUANTITATIVE (07/06/2022 10:32 AM DIESEL TECHNOLOGY INSTRUCTOR) Pathologist [facility] Rheumatoid Factor <14 <14 IU/mL [facility] Comment: Test Performed at: [facility] [id number] [place] [address] ??[phone] SKY GODINEZ DO,MPH Blood BLOOD SPECIMEN / Unknown 07/06/2022 10:32 AM DIESEL TECHNOLOGY INSTRUCTOR 07/06/2022 10:37 AM DIESEL TECHNOLOGY INSTRUCTOR Francisco Martino MD LAB - CHEMISTRY [facility] [place] Performing Organization Address [facility] de Phone Number [facility] [phone] [place] [address] * C-REACTIVE PROTEIN (07/06/2022 10:32 AM DIESEL TECHNOLOGY INSTRUCTOR) [facility] C-Reactive Protein 0.6 <8.0 mg/L [facility] Comment: Test Performed at: [facility] [address] [place] [address] ??[phone] SKY GODINEZ DO,MPH Blood BLOOD SPECIMEN / Unknown 07/06/2022 10:32 AM DIESEL TECHNOLOGY INSTRUCTOR 07/06/2022 10:37 AM DIESEL TECHNOLOGY INSTRUCTOR Francisco Martino MD LAB - CHEMISTRY [facility] Performing Organization Address [facility] de Phone Number [facility] [address] [place] [address] * (ABNORMAL) LIAM BLOOD TITER (07/06/2022 10:32 AM DIESEL TECHNOLOGY INSTRUCTOR) Pathologist [facility] LIAM 1:320(H) titer [facility] Comment: ?Reference Range ?<1:40 ?Negative ?1:40-1:80 ?Low Antibody Level ?>1:80 ?Elevated Antibody Level LIAM Pattern Nuclear, Centromere (A) [facility] Comment: Centromere pattern is associated with limited cutaneous systemic sclerosis, CREST (Calcinosis, Raynaud's, Esophageal dysmotility, Sclerodactyly, Telangiectasia), primary biliary cholangitis (PBC), and other autoimmune diseases. AC-3: Centromere International Consensus on LIAM Patterns (https://doi.org/10.1515/taml-6963-1254) Test Performed at: [facility] [place], [place] ??[phone] SKY GODINEZ DO,MPH 07/06/2022 10:3 2 AM DIESEL TECHNOLOGY INSTRUCTOR 07/06/2022 10:37 AM DIESEL TECHNOLOGY INSTRUCTOR Francisco Martino MD LAB - CHEMISTRY [facility] [place] [facility] [address] [place] [address] * (ABNORMAL) LIAM BLOOD SCREEN W/REFLEX TITER (07/06/2022 10:32 AM DIESEL TECHNOLOGY INSTRUCTOR) Pathologist [facility] LIAM Screen POSITIVE( A) NEGATIVE [facility] Comment: LIAM IFA is a first line screen for detecting the presence of up to approximately 150 autoantibodies in various autoimmune diseases. A positive LIAM IFA result is suggestive of autoimmune disease and reflexes to titer and pattern. Further laboratory testing may be considered if clinically indicated. For additional information, please refer to http://education.Velocix.ZeusControls/faq/OJS753 (This link is being provided for informational/ educational purposes only.) ?? Test Performed at: [employer] [employer] [place], [place] ??[address] SKY GODINEZ DO,MPH Blood BLOOD SPECIMEN / Unknown 07/06/2022 10:32 AM DIESEL TECHNOLOGY INSTRUCTOR 07/06/2022 10:37 AM DIESEL TECHNOLOGY INSTRUCTOR Francisco Martino MD LAB - CHEMISTRY [facility] Performing Organization Address [facility] Co de Phone Number [place] [phone] [place] [address] * HLA TYPING B27 (07/06/2022 10:32 AM DIESEL TECHNOLOGY INSTRUCTOR) HLA-B27 Antigen NEGATIVE NEGATIVE [facility] Comment: Test Performed at: [facility] [address] ??[phone] CARLOS COLON MD Blood BLOOD SPECIMEN / Unknown 07/06/2022 10:32 AM DIESEL TECHNOLOGY INSTRUCTOR 07/06/2022 10:37 AM DIESEL TECHNOLOGY INSTRUCTOR Francisco Martino MD LAB - CHEMISTRY [facility] Performing Organization Address [facility] de Phone Number [address] [address] * SS-B (SJOGREN'S) ANTIBODY (07/06/2022 10:32 AM DIESEL TECHNOLOGY INSTRUCTOR) Sjogren's Antibodies (SSB) <1.0 NEG <1.0 NEG AI [facility] Comment: Test Performed at: [facility] [address] [place], [place] ??[phone] SKY GODINEZ DO,MPH Blood BLOOD SPECIMEN / Unknown 07/06/2022 10:32 AM DIESEL TECHNOLOGY INSTRUCTOR 07/06/2022 10:37 AM DIESEL TECHNOLOGY INSTRUCTOR Francisco Martino MD LAB - CHEMISTRY [facility] [place] Performing Organization Address [facility] Co de Phone Number [address] [address] * SS-A (SJOGREN'S) ANTIBODY (07/06/2022 10:32 AM DIESEL TECHNOLOGY INSTRUCTOR) Sjogren's Antibodies (SSA) <1.0 NEG <1.0 NEG AI [facility] Comment: Test Performed at: [facility] [place] [address] [facility] [place] [place] ??[phone] SKY GODINEZ DO,MPH Blood BLOOD SPECIMEN / Unknown 07/06/2022 10:32 AM DIESEL TECHNOLOGY INSTRUCTOR 07/06/2022 10:37 AM DIESEL TECHNOLOGY INSTRUCTOR Francisco Martino MD LAB - CHEMISTRY [facility] [place] Performing Organization Address [facility] Phone Number [place] [phone] * CYCLIC CITRULLINATED PEPTIDE(CCP) AB IGG (07/06/2022 10:32 AM DIESEL TECHNOLOGY INSTRUCTOR) Cyclic Citrullinated Peptide Antibody IgG <16 UNITS [facility] Comment: Reference Range Negative: ?<20 Weak Positive: ? 20-39 Moderate Positive: ?? 40-59 Strong Positive: ? >59 Test Performed at: [facility] [address] [place], [place] ??[phone] SKY GODINEZ DO,MPH Blood BLOOD SPECIMEN / Unknown 07/06/2022 10:32 AM DIESEL TECHNOLOGY INSTRUCTOR 07/06/2022 10:37 AM DIESEL TECHNOLOGY INSTRUCTOR Francisco Martino MD LAB - CHEMISTRY [facility] [place] Performing Organization Address [facility] de Phone Number [facility] [phone] [place] [address] * ERYTHROCYTE SEDIMENTATION RATE (07/06/2022 10:32 AM DIESEL TECHNOLOGY INSTRUCTOR) Pathologist [facility] Erythrocyte Sedimentation Rate Westergren 2 < OR = 20 mm/h [facility] Comment: Test Performed at: [facility] [address] [place], [place] ??[phone] SKY GODINEZ DO,MPH Blood BLOOD SPECIMEN / Unknown 07/06/2022 10:32 AM DIESEL TECHNOLOGY INSTRUCTOR 07/06/2022 10:37 AM DIESEL TECHNOLOGY INSTRUCTOR Francisco Martino MD LAB - HEMATOLOGY [facility]UNI [facility] Performing Organization Address [facility] de Phone Number [address] [address] * XR HAND LEFT 3VW OR MORE (07/06/2022 9:42 AM DIESEL TECHNOLOGY INSTRUCTOR) Anatomical Region Laterality Modality Wrist / Hand Radiographic Laura ging 07/06/2022 9:53 AM DIESEL TECHNOLOGY INSTRUCTOR Impressions 07/06/2022 10:38 AM DIESEL TECHNOLOGY INSTRUCTOR IMPRESSION: Right hand: 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 Right wrist: No acute fracture, dislocation or significant arthritis. Left hand: Mild osteoarthritis of the second through fourth distal interphalangeal joints. Left wrist: No acute fracture, dislocation or significant arthritis. Sacroiliac joints: No acute fracture, dislocation or significant arthritis. Report dictated by Ad Real MD (president practicing urologist). I, Alvarez Lockhart MD have personally reviewed and interpreted this examination/study. > Interpreting Provider: Alvarez Lockhart MD on 07/06/2022 10:38 AM Narrative 07/06/2022 10:38 AM DIESEL TECHNOLOGY INSTRUCTOR PROCEDURE: ??XR HAND RIGHT 3VW OR MORE, XR SI JOINTS 3VW OR MORE, XR WRIST RIGHT 3VW OR MORE, XR WRIST LEFT 3VW OR MORE, XR HAND LEFT 3VW OR MORE, DATE/TIME OF EXAM: ??07/06/2022 9:42 AM, LOCATION [facility] INDICATION: M25.50: Polyarthralgia COMPARISON: None. FINDINGS: Right hand: No acute fracture or dislocation. There is mild degenerative change at the second distal interphalangeal joint with osteophyte formation, and minimal joint space narrowing. The remaining joint spaces are maintained. Bone density and texture are normal. No soft tissue swelling is present. No erosions. Right wrist: No acute fracture or dislocation. The joint spaces are maintained. Bone density and texture are normal. No soft tissue swelling is present. No erosions. Left hand: No acute fracture or dislocation. There is mild degenerative change at the second through fourth distal interphalangeal joints with minimal osteophyte formation and joint space narrowing. There is mild first carpal metacarpal joint space with osteophyte formation. The remaining joint spaces are maintained. Bone density and texture are normal. No soft tissue swelling is present. No erosions. Left wrist: No acute fracture or dislocation. The joint spaces are maintained. Bone density and texture are normal. No soft tissue swelling is present. No erosions. Sacroiliac joints: There is no erosion, widening, sclerosis, narrowing, or ankylosis of either sacroiliac joint. There is no fracture. There is mild right hip joint space narrowing with osteophyte formation along the inferior surface of the right femoral head. Procedure Note Alvarez Lockhart MD - 07/06/2022 PROCEDURE: XR HAND RIGHT 3VW OR MORE, XR SI JOINTS 3VW OR MORE, XRWRIST RIGHT 3VW OR MORE, XR WRIST LEFT 3VW OR MORE, XR HAND LEFT 3VW OR MORE, DATE/TIME OF EXAM: 07/06/2022 9:42 AM, LOCATION [facility] INDICATION: M25.50: Polyarthralgia COMPARISON: None. FINDINGS: Right hand: No acute fracture or dislocation. There is mild degenerative change atthe second distal interphalangeal joint with osteophyte formation, andminimal joint space narrowing. The remaining joint spaces are maintained. Bone density and texture are normal. No soft tissue swelling is present. No erosions. Right wrist: No acute fracture or dislocation. The joint spaces are maintained. Bone density and texture are normal. No soft tissue swelling is present. No erosions. Left hand: No acute fracture or dislocation. There is mild degenerative change atthe second through fourth distal interphalangeal joints with minimalosteophyte formation and joint space narrowing. There is mild first carpalmetacarpal joint space with osteophyte formation. The remaining joint spaces are maintained. Bone density and texture are normal. No soft tissue swellingis present. No erosions. Left wrist: No acute fracture or dislocation. The joint spaces are maintained. Bone density and texture are normal. No soft tissue swelling is present. No erosions. Sacroiliac joints: There is no erosion, widening, sclerosis, narrowing, or ankylosis ofeither sacroiliac joint. There is no fracture. There is mild right hip jointspace narrowing with osteophyte formation along the inferior surface of theright femoral head. IMPRESSION: Right hand: Mild osteoarthritis of the second distal interphalangealjoint. Right wrist: No acute fracture, dislocation or significant arthritis. Left hand: Mild osteoarthritis of the second through fourth distal interphalangeal joints. Left wrist: No acute fracture, dislocation or significant arthritis. Sacroiliac joints: No acute fracture, dislocation or significantarthritis. Report dictated by Ad Real MD (president practicing urologist). Alvarez Romanol, MD have personally reviewed and interpreted this examination/study. 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 Right wrist: No acute fracture, dislocation or significant arthritis. Left hand: Mild osteoarthritis of the second through fourth distal interphalangeal joints. Left wrist: No acute fracture, dislocation or significant arthritis. Sacroiliac joints: No acute fracture, dislocation or significant arthritis. Report dictated by Ad Real MD (president practicing urologist). I, Alvarez Lockhart MD have personally reviewed and interpreted this examination/study. > Interpreting Provider: Alvarez Lockhart MD on 07/06/2022 10:38 AM Narrative 07/06/2022 10:38 AM DIESEL TECHNOLOGY INSTRUCTOR PROCEDURE: ??XR HAND RIGHT 3VW OR MORE, XR SI JOINTS 3VW OR MORE, XR WRIST RIGHT 3VW OR MORE, XR WRIST LEFT 3VW OR MORE, XR HAND LEFT 3VW OR MORE, DATE/TIME OF EXAM: ??07/06/2022 9:42 AM, LOCATION [facility] INDICATION: M25.50: Polyarthralgia COMPARISON: None. FINDINGS: Right hand: No acute fracture or dislocation. There is mild degenerative change at the second distal interphalangeal joint with osteophyte formation, and minimal joint space narrowing. The remaining joint spaces are maintained. Bone density and texture are normal. No soft tissue swelling is present. No erosions. Right wrist: No acute fracture or dislocation. The joint spaces are maintained. Bone density and texture are normal. No soft tissue swelling is present. No erosions. Left hand: No acute fracture or dislocation. There is mild degenerative change at the second through fourth distal interphalangeal joints with minimal osteophyte formation and joint space narrowing. There is mild first carpal metacarpal joint space with osteophyte formation. The remaining joint spaces are maintained. Bone density and texture are normal. No soft tissue swelling is present. No erosions. Left wrist: No acute fracture or dislocation. The joint spaces are maintained. Bone density and texture are normal. No soft tissue swelling is present. No erosions. Sacroiliac joints: There is no erosion, widening, sclerosis, narrowing, or ankylosis of either sacroiliac joint. There is no fracture. There is mild right hip joint space narrowing with osteophyte formation along the inferior surface of the right femoral head. Procedure Note Alvarez Lockhart MD - 07/06/2022 PROCEDURE: XR HAND RIGHT 3VW OR MORE, XR SI JOINTS 3VW OR MORE, XRWRIST RIGHT 3VW OR MORE, XR WRIST LEFT 3VW OR MORE, XR HAND LEFT 3VW OR MORE, DATE/TIME OF EXAM: 07/06/2022 9:42 AM, LOCATION [facility] INDICATION: M25.50: Polyarthralgia COMPARISON: None. FINDINGS: Right hand: No acute fracture or dislocation. There is mild degenerative change atthe second distal interphalangeal joint with osteophyte formation, andminimal joint space narrowing. The remaining joint spaces are maintained. Bone density and texture are normal. No soft tissue swelling is present. No erosions. Right wrist: No acute fracture or dislocation. The joint spaces are maintained. Bone density and texture are normal. No soft tissue swelling is present. No erosions. Left hand: No acute fracture or dislocation. There is mild degenerative change atthe second through fourth distal interphalangeal joints with minimalosteophyte formation and joint space narrowing. There is mild first carpalmetacarpal joint space with osteophyte formation. The remaining joint spaces are maintained. Bone density and texture are normal. No soft tissue swellingis present. No erosions. Left wrist: No acute fracture or dislocation. The joint spaces are maintained. Bone density and texture are normal. No soft tissue swelling is present. No erosions. Sacroiliac joints: There is no erosion, widening, sclerosis, narrowing, or ankylosis ofeither sacroiliac joint. There is no fracture. There is mild right hip jointspace narrowing with osteophyte formation along the inferior surface of theright femoral head. IMPRESSION: Right hand: Mild osteoarthritis of the second distal interphalangealjoint. Right wrist: No acute fracture, dislocation or significant arthritis. Left hand: Mild osteoarthritis of the second through fourth distal interphalangeal joints. Left wrist: No acute fracture, dislocation or significant arthritis. Sacroiliac joints: No acute fracture, dislocation or significantarthritis. Report dictated by Ad Real MD (president practicing urologist). Alvarez Romano MD have personally reviewed and interpreted this examination/study. 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 Right wrist: No acute fracture, dislocation or significant arthritis. Left hand: Mild osteoarthritis of the second through fourth distal interphalangeal joints. Left wrist: No acute fracture, dislocation or significant arthritis. Sacroiliac joints: No acute fracture, dislocation or significant arthritis. Report dictated by Ad Real MD (president practicing urologist). Alvarez Romano MD have personally reviewed and interpreted this examination/study. > Interpreting Provider: Alvarez Lockhart MD on 07/06/2022 10:38 AM Narrative 07/06/2022 10:38 AM DIESEL TECHNOLOGY INSTRUCTOR PROCEDURE: ??XR HAND RIGHT 3VW OR MORE, XR SI JOINTS 3VW OR MORE, XR WRIST RIGHT 3VW OR MORE, XR WRIST LEFT 3VW OR MORE, XR HAND LEFT 3VW OR MORE, DATE/TIME OF EXAM: ??07/06/2022 9:42 AM, LOCATION [facility] INDICATION: M25.50: Polyarthralgia COMPARISON: None. FINDINGS: Right hand: No acute fracture or dislocation. There is mild degenerative change at the second distal interphalangeal joint with osteophyte formation, and minimal joint space narrowing. The remaining joint spaces are maintained. Bone density and texture are normal. No soft tissue swelling is present. No erosions. Right wrist: No acute fracture or dislocation. The joint spaces are maintained. Bone density and texture are normal. No soft tissue swelling is present. No erosions. Left hand: No acute fracture or dislocation. There is mild degenerative change at the second through fourth distal interphalangeal joints with minimal osteophyte formation and joint space narrowing. There is mild first carpal metacarpal joint space with osteophyte formation. The remaining joint spaces are maintained. Bone density and texture are normal. No soft tissue swelling is present. No erosions. Left wrist: No acute fracture or dislocation. The joint spaces are maintained. Bone density and texture are normal. No soft tissue swelling is present. No erosions. Sacroiliac joints: There is no erosion, widening, sclerosis, narrowing, or ankylosis of either sacroiliac joint. There is no fracture. There is mild right hip joint space narrowing with osteophyte formation along the inferior surface of the right femoral head. Procedure Note Alvarez Lockhart MD - 07/06/2022 PROCEDURE: XR HAND RIGHT 3VW OR MORE, XR SI JOINTS 3VW OR MORE, XRWRIST RIGHT 3VW OR MORE, XR WRIST LEFT 3VW OR MORE, XR HAND LEFT 3VW OR MORE, DATE/TIME OF EXAM: 07/06/2022 9:42 AM, LOCATION [facility] INDICATION: M25.50: Polyarthralgia COMPARISON: None. FINDINGS: Right hand: No acute fracture or dislocation. There is mild degenerative change atthe second distal interphalangeal joint with osteophyte formation, andminimal joint space narrowing. The remaining joint spaces are maintained. Bone density and texture are normal. No soft tissue swelling is present. No erosions. Right wrist: No acute fracture or dislocation. The joint spaces are maintained. Bone density and texture are normal. No soft tissue swelling is present. No erosions. Left hand: No acute fracture or dislocation. There is mild degenerative change atthe second through fourth distal interphalangeal joints with minimalosteophyte formation and joint space narrowing. There is mild first carpalmetacarpal joint space with osteophyte formation. The remaining joint spaces are maintained. Bone density and texture are normal. No soft tissue swellingis present. No erosions. Left wrist: No acute fracture or dislocation. The joint spaces are maintained. Bone density and texture are normal. No soft tissue swelling is present. No erosions. Sacroiliac joints: There is no erosion, widening, sclerosis, narrowing, or ankylosis ofeither sacroiliac joint. There is no fracture. There is mild right hip jointspace narrowing with osteophyte formation along the inferior surface of theright femoral head. IMPRESSION: Right hand: Mild osteoarthritis of the second distal interphalangealjoint. Right wrist: No acute fracture, dislocation or significant arthritis. Left hand: Mild osteoarthritis of the second through fourth distal interphalangeal joints. Left wrist: No acute fracture, dislocation or significant arthritis. Sacroiliac joints: No acute fracture, dislocation or significantarthritis. Report dictated by Ad Real MD (president practicing urologist). Alvarez Romano MD have personally reviewed and interpreted this examination/study. 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 Right wrist: No acute fracture, dislocation or significant arthritis. Left hand: Mild osteoarthritis of the second through fourth distal interphalangeal joints. Left wrist: No acute fracture, dislocation or significant arthritis. Sacroiliac joints: No acute fracture, dislocation or significant arthritis. Report dictated by Ad Real MD (president practicing urologist). IAlvarez MD have personally reviewed and interpreted this examination/study. > Interpreting Provider: Alvarez Lockhart MD on 07/06/2022 10:38 AM Narrative 07/06/2022 10:38 AM DIESEL TECHNOLOGY INSTRUCTOR PROCEDURE: ??XR HAND RIGHT 3VW OR MORE, XR SI JOINTS 3VW OR MORE, XR WRIST RIGHT 3VW OR MORE, XR WRIST LEFT 3VW OR MORE, XR HAND LEFT 3VW OR MORE, DATE/TIME OF EXAM: ??07/06/2022 9:42 AM, LOCATION [facility] INDICATION: M25.50: Polyarthralgia COMPARISON: None. FINDINGS: Right hand: No acute fracture or dislocation. There is mild degenerative change at the second distal interphalangeal joint with osteophyte formation, and minimal joint space narrowing. The remaining joint spaces are maintained. Bone density and texture are normal. No soft tissue swelling is present. No erosions. Right wrist: No acute fracture or dislocation. The joint spaces are maintained. Bone density and texture are normal. No soft tissue swelling is present. No erosions. Left hand: No acute fracture or dislocation. There is mild degenerative change at the second through fourth distal interphalangeal joints with minimal osteophyte formation and joint space narrowing. There is mild first carpal metacarpal joint space with osteophyte formation. The remaining joint spaces are maintained. Bone density and texture are normal. No soft tissue swelling is present. No erosions. Left wrist: No acute fracture or dislocation. The joint spaces are maintained. Bone density and texture are normal. No soft tissue swelling is present. No erosions. Sacroiliac joints: There is no erosion, widening, sclerosis, narrowing, or ankylosis of either sacroiliac joint. There is no fracture. There is mild right hip joint space narrowing with osteophyte formation along the inferior surface of the right femoral head. Procedure Note Alvarez Lockhart MD - 07/06/2022 PROCEDURE: XR HAND RIGHT 3VW OR MORE, XR SI JOINTS 3VW OR MORE, XRWRIST RIGHT 3VW OR MORE, XR WRIST LEFT 3VW OR MORE, XR HAND LEFT 3VW OR MORE, DATE/TIME OF EXAM: 07/06/2022 9:42 AM, LOCATION [facility] INDICATION: M25.50: Polyarthralgia COMPARISON: None. FINDINGS: Right hand: No acute fracture or dislocation. There is mild degenerative change atthe second distal interphalangeal joint with osteophyte formation, andminimal joint space narrowing. The remaining joint spaces are maintained. Bone density and texture are normal. No soft tissue swelling is present. No erosions. Right wrist: No acute fracture or dislocation. The joint spaces are maintained. Bone density and texture are normal. No soft tissue swelling is present. No erosions. Left hand: No acute fracture or dislocation. There is mild degenerative change atthe second through fourth distal interphalangeal joints with minimalosteophyte formation and joint space narrowing. There is mild first carpalmetacarpal joint space with osteophyte formation. The remaining joint spaces are maintained. Bone density and texture are normal. No soft tissue swellingis present. No erosions. Left wrist: No acute fracture or dislocation. The joint spaces are maintained. Bone density and texture are normal. No soft tissue swelling is present. No erosions. Sacroiliac joints: There is no erosion, widening, sclerosis, narrowing, or ankylosis ofeither sacroiliac joint. There is no fracture. There is mild right hip jointspace narrowing with osteophyte formation along the inferior surface of theright femoral head. IMPRESSION: Right hand: Mild osteoarthritis of the second distal interphalangealjoint. Right wrist: No acute fracture, dislocation or significant arthritis. Left hand: Mild osteoarthritis of the second through fourth distal interphalangeal joints. Left wrist: No acute fracture, dislocation or significant arthritis. Sacroiliac joints: No acute fracture, dislocation or significantarthritis. Report dictated by Ad Real MD (president practicing urologist). I, Alvarez Lockhart MD have personally reviewed and interpreted this examination/study. > Interpreting Provider: Alvarez Lockhart MD on 0:38 AM Francisco Martino MD DIAGNOSTIC IMAGING O [facility] Care Teams Supervisor Photoengraving Relationship Specialty Start Date End Date Siva Burgos MD [address] [place] [address] PCP - General Internal Medicine 07/06/22
--- OUTSIDE RECORDS SUMMARY | 2024-06-23 18:19 | XMS_ITS | Clinical Summary ---
Author Organization [facility] Address [address] [place] [address] Care Team Providers Care Rn Building Name Role Phone Siva Burgos MD Primary Care Provider [phone] Source Comments [facility],non-owned Affiliates and Associated Physician Practices is amultiple site organization consisting of ambulatory clinics and hospital sitesin [place], [place], [place]. This disclosure is being madepursuant to the Care Everywhere program and may not contain all information available regarding this patient. Last updated 18.[facility] Allergies No known active allergies Medications * [...] / 24 hours. 03/26/2024 Active HYDROcodone-acetam inophen (Golden) 5-325 MG tabletIndications: Pain Take 1 (one) tablet by mouth every 6 hours as needed for Pain Reasons: Pain 12 tablet 03/26/2024 Active sennosides (Senna Lax) 8.6 MG tablet Take 1 (one) tablet by mouth 2 times daily as needed for Constipation Take while using narcotic pain medications, then take as needed for constipation 03/26/2024 Active Active Problems No known active problems Encounters Date Type Department Care Team Description 05/08/2024 10:[address]PERVISOR Office Visit [facility] - Orthopedic Surgery [address] [place] [id number] Mika Leonard APRN-CNP Arthritis of carpometacarpal (CMC) joint of right thumb (Primary Dx); Primary osteoarthritis of first carpometacarpal joint of left hand; Follow-up examination after orthopedic surgery 05/08/2024 Travel 04/10/2024 9:45 AM CDT - 04/10/2024 11:59 PM CDT Hospital Encounter [facility] - Orthopedics [address] [place] [address], [facility] [address] [place] [address] Mika Leonard APRN-CNP Discharge Disposition: Home or Self Care 04/10/2024 9:45 AM CDT Office Visit [facility] - Orthopedic Surgery [address] [place] [phone] Oksanen, Mika M, SHAREPOINT CONSULTANT-PIPE TURNER Follow-up examination after orthopedic surgery (Primary Dx); Arthritis of carpometacarpal (CMC) joint of right thumb 04/10/2024 Travel 03/28/2024 Orders Only [facility] - Orthopedics [address] [facility], [facility] [place] [address] Hipolito Cat MD Arthritis of carpometacarpal (CMC) joint of right thumb 03/26/2024 12:45 PM CDT Anesthesia Event [facility] [address] [place] [address] Kolton Boone MD 03/26/2024 11:53 AM CDT - 03/26/2024 2:20 PM CDT Surgery [facility] [address] [place] [address] Hipolito Cat MD FIRST CARPOMETACARPAL JOINT ARTHROPLASTY WITH LIGAMENT RECONSTRUCTION USING FREE TENDON GRAFT 03/26/2024 10:14 AM CDT - 03/26/2024 4:30 PM CDT Hospital Encounter [facility] [address] [place] [address] Hipolito Cat MD Surgery General Discharge Disposition: Home or Self Care 03/26/2024 Travel from Last 3 Months Immunizations Name Administration Dates Next Due FLU VACCINE TRI IIV3 SPLIT PF IM (FLUVIRIN) 02/18 iNFLUENZA VACCINE, RECOM-VELAZQUEZ, QUADR. (FLUBLOCK QUADRIVALENT; 18Y+) (RIV4) 07/06/2022 Family History Medical History Relation Name Comments Multiple Sclerosis Mother Relation Name Status Comments Mother Social History Tobacco Use Types Packs/Day Years [...] 03/26/2024 10:36 AM CDT Plan of Treatment Health Maintenance Due Date Last Done Comments COLOGUARD (AGES 45-75) - COLON CA SCREENING 1974 COLON MONITORING 1974 COLONOSCOPY - COLON CA SCREENING 1974 CT COLONOGRAPHY - COLON CA SCREENING 1974 Colorectal Cancer Screening 1974 FIT - COLON CA SCREENING 1974 FLEX SIG - COLON CA SCREENING 1974 LIPID TESTING 1974 PAP SMEAR 1974 HIV SCREENING 1989 HEPATITIS C SCREENING 08/11/1992 DTAP/TDAP/TD VACCINES (1 - Tdap) 1993 HEPATITIS B VACCINE (1 of 3 - 19+ 3-dose series) 1993 COVID-19 VACCINE (3 - season) 2024 11/01/2020, 10/12/2020 INFLUENZA VACCINE (#1) 2024 07/06/2022, 2018 DEPRESSION SCREENING 06/18/2024 09/07/2023, 07/06/19 23 ZOSTER VACCINE (1 of 2) 2024 MAMMOGRAM 02/12/2026 02/13/2024, 11/0 06/2017, 04/09/2018, Additional history exists HIB VACCINE Aged Out No longer eligi ble based on patient's age to complete this topic HPV VACCINE Aged Out No longer eligi ble based on patient's age to complete this topic MENINGOCOCCAL VACCINE Aged Out No gregg rosita eligible based on patient's age to complete this topic PNEUMOCOCCAL VACCINE Aged Out No long er eligible based on patient's age to complete this topic Medical Devices Implanted Type Area Oyster Culturist Device Identifier Shelf Expiration Date Model / Serial / Lot Sys Intnl Fx Fiberlock Fiberlock Spns Implanted:Qty: 1 on 03/26/2024 by Hipolito Cat MD at [facility] Right: Hand [employer] 10/15/2028 [id number] / / [id number] Description:Base of thumb Procedures Procedure Name Priority [...] SURGERY Routine 03/26/2024 2:50 PM CDT Pain PA REPAIR INTERCARP/CARP-ME TACARP JT 03/26/2024 12:30 PM CDT Diagnosis unknown Special Needs NEEDS MINI C-ARM, MCGLAMRY RETRACTORS, ARTHREX--REP. (MEKA # [phone]) NOTIFIED PER OFFICE ([facility]A)--03/14 KW / FREE TENDON GRAFT IS FROM THE PATIENT PER SURGEON PER OFFICE (CHIQUILA)--03/14 KW PERIPHERAL BLOCK Routine 03/26/2024 12:2 0 [...] DATE/TIME OF EXAM: ??04/10/2024 10:24 AM, LOCATION ??[facility] 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 of first [...] DATE/TIME OF EXAM: 04/10/2024 10:24 AM, LOCATION [facility] 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 of first [...] MD on 04/10/2024 10:48 AM Mika Leonard SHAREPOINT CONSULTANT-PIPE TURNER DIAGNOSTIC IMAG ING ORDERABLES * IMAGING RADIOLOGY [...] [facility] (03/26/2024 2:50 PM CDT) Narrative [facility] - 03/26/2024 3:05 PM CDT For details of this study, please see the providers note. Hipolito Cat MD FLUOROSCOPY ORDERABL ES [facility] [address] [place] [address] * Peripheral Nerve Block (03/26/2024 12:20 PM [...] RDERABLES from Last 3 Months Care Teams Rn Building Relationship Specialty Start Date End Date Siva Burgos MD [address] [place] [address] PCP - General Internal Medicine 07/06/22
--- OUTSIDE RECORDS SUMMARY | 2024-06-23 18:19 | XMS_ITS | Encounter Summary ---
Author Organization [facility] Address [address] [place] [address] Care Team Providers Care Hosiery Looper Name Role Phone Siva Burgos MD Primary Care Provider [phone] Encounter Details Date Type Department Care Team (Latest Contact Info) Description 03/26/2024 Travel Social History Tobacco Use Types Packs/Day [...] on filedocumented in this encounter Care Teams Hosiery Looper Relationship Specialty Start Date End Date Siva Burgos MD [address] [place] [address] PCP - General Internal Medicine 07/06/22 documented as of this encounter
--- OUTSIDE RECORDS SUMMARY | 2024-06-23 18:20 | XMS_ITS | Encounter Summary ---
Author Organization [facility] Address [address] [place] [address] Care Team Providers Care Tech Ed/Woodshop Teacher Name Role Phone Siva Burgos MD Primary Care Provider [phone] Encounter Details Date Type Department Care Team (Latest Contact Info) Description 03/14/2024 Travel Social History Tobacco Use Types Packs/Day [...] on filedocumented in this encounter Care Teams Tech Ed/Woodshop Teacher Relationship Specialty Start Date End Date Siva Burgos MD [address] [place] [address] PCP - General Internal Medicine 07/06/22 documented as of this encounter
--- OUTSIDE RECORDS SUMMARY | 2024-06-23 18:20 | XMS_ITS | Encounter Summary ---
Author Organization [facility] Address [address] [place] [address] Care Team Providers Care Application Integration Specialist Name Role Phone Siva Burgos MD Primary Care Provider Reason for Visit * Procedure (Routine) - Closed Specialty Diagnoses / Procedures Referred By Travis t Referred To Contact Pulmonary Disease Diagnoses Scleroderma (HCC) CREST syndrome (HCC) Procedures Complete PFT [facility] PFT Lab Francisco Martino MD [address] [facility] [address] [place] [address] [facility] Pft [address] [place] [address] Referral ID Status Reason Start Date Expiration Date Visits Re quested Visits Authorized [id number] Closed 08/15/2022 08/15/2023 1 1 Encounter Details Date Type Department Care Team (Latest Contact Info) Description 10/13/2022 9:06 AM CDT - 10/13/2022 11:59 PM CDT Hospital Encounter [facility] PFT [address] [place] [address] Francisco Martino MD [address] [facility] [address] [place] [address] Discharge Disposition: Home or Self Care Social History Tobacco Use Types Packs/Day Years Used Date Smoking Tobacco: Never Smokeless Tobacco: Never Alcohol Use Standard Drinks/Week Comments Yes 0 (1 standard drink = 0.6 oz pur e alcohol) social PHQ-2 Answer Date Recorded PHQ2 TOTAL SCORE 0 08/08/2022 Sex and Gender Information Value Date Recorded Sex Assigned at Not on file Gender Identity Not on file Sexual Orientation Not on file documented as of this encounter Medications at Time of Discharge Medication Sig Dispensed Refills Start Date End Date meloxicam (Mobic) 15 MG tablet Take 1 (one) tablet by mouth once daily 90 tablet 1 08/08/2022 documented as of this encounter Procedure Notes * Pedro Pablo Bradshaw RCP - 10/13/2022 12:23 PM CDTAssociated Order(s): COMPLETE PFT Images from the original note were not included. HAMMER SET UP OPERATOR documented in this encounter Plan of Treatment Not on file documented as of this encounter Procedures Procedure Name Priority Date/Time Associated Diagnosis Comments PFT-LAB Routine 10/13/2022 12:23 PM CDT Scleroderma (HCC) CREST syndrome (HCC) documented in this encounter Results * Complete PFT [facility] PFT Lab (10/13/2022 12:23 PM CDT) Narrative Pedro Pablo Bradshaw RCP - 10/13/2022 12:23 PM CDT Pedro Pablo Bradshaw RCP ? 07/26/2023 ??3:41 PM Francisco Martino MD RESPIRATORY THERAPY ORDERABLES documented in this encounter Visit Diagnoses Not on filedocumented in this encounter Care Teams Application Integration Specialist Relationship Specialty Start Date End Date Siva Burgos MD [address] [place] [address] PCP - General Internal Medicine 07/06/22 documented as of this encounter
--- OUTSIDE RECORDS SUMMARY | 2024-06-23 18:20 | XMS_ITS | Encounter Summary ---
Author Organization [facility] Address [address] [place] [address] Care Team Providers Care Channel Process Supervisor Name Role Phone Siva Burgos MD Primary Care Provider Reason for Referral * OP/Amb RFL Auth (Routine) - Pending Review Specialty Diagnoses / Procedures Referred By Contac t Referred To Contact Diagnoses Arthritis of carpometacarpal (CMC) joint of left thumb Procedures [place] DRAIN/INJECT SMALL JOINT/BURSA Hipolito Cat MD [address] [place] [phone] Referral ID Status Reason Start Date Expiration Date V isits Requested Visits Authorized [id number] Pending Review 09/07/2023 09/06/2024 1 1 * OP/Amb RFL Auth (Routine) - Pending Review Specialty Diagnoses / Procedures Referred By Travis elizabeth Referred To Contact Diagnoses Arthritis of carpometacarpal (CMC) joint of right thumb Procedures [place] DRAIN/INJECT SMALL JOINT/BURSA Hipolito Cat MD [address] [place] [phone] Referral ID Status Reason Start Date Expiration Date V isits Requested Visits Authorized [id number] Pending Review 09/07/2023 09/06/2024 1 1 * OP/Amb RFL Auth (Routine) - Pending Review Specialty Diagnoses / Procedures Referred By Travis elizabeth Referred To Contact Diagnoses Trigger thumb, left thumb Procedures [place] INJ TENDON SHEATH/LIGAMENT/APONEUROSIS Hipolito Cat MD [address] [place] [phone] Referral ID Status Reason Start Date Expiration Date V isits Requested Visits Authorized [id number] Pending Review 09/07/2023 09/06/2024 1 1 * OP/Amb RFL Auth (Routine) - Pending Review Specialty Diagnoses / Procedures Referred By Travis elizabeth Referred To Contact Diagnoses Trigger thumb, right thumb Procedures [place] INJ TENDON SHEATH/LIGAMENT/APONEUROSIS Hipolito Cat MD [address] [place] [phone] Referral ID Status Reason Start Date Expiration Date V isits Requested Visits Authorized [id number] Pending Review 09/07/2023 09/06/2024 1 1 Reason for Visit * Reason Comments Finger Pain Encounter Details Date Type Department Care Team (Latest Contact Info) Description 09/07/2023 8:30 AM CDT Office Visit [facility] - Orthopedics [address] [place] [address], [place] [address] Hipolito Cat MD [address] [place] [phone] Trigger thumb, right thumb (Primary Dx); Trigger thumb, left thumb; Arthritis of carpometacarpal (CMC) joint of right thumb; Arthritis of carpometacarpal (CMC) joint of left thumb Social History Tobacco Use Types Packs/Day Years Used Date Smoking Tobacco: Never Smokeless Tobacco: Never Tobacco Cessation:Counseling Given: Not Answered Alcohol Use Standard Drinks/Week Comments Yes 0 [...] Date Recorded Patient Health Questionnaire-2 Score 0 09/05/2023 Sex and Gender Information Value Date Recorded Sex Assigned at Not on file Gender Identity Not on file Sexual Orientation Not on file documented as of this encounter Progress Notes * Hipolito Cat MD - 09/07/2023 8:53 AM CDT Images from the original note were not included. Chief Complaint: bilateral thumb pain ?? 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 Last seen on 04/27/2023 when I gave her bilateral trigger thumb injections She reports that it resolved her triggering until recently when it came back on both side, and she also now reports that dorsal thumb pain bilaterally. She does report that the pain is associated with numbness over the thumbs that keeps her up at night. ?? From last visit on 04/27/2023 They have been having bilateral thumb pain for 2 month(s). They did not have an injury to this thumb. The patient has report locking of the thumb. The patient reports that the pain is felt during the day and night. The patient does not have sleepdisturbances because of the [facility]. They can normally use their hand for activities of daily living. They have dropped object from their hand. The patient does complain of loss of strength and does not complain of loss of motion. Symptoms are exacerbated with activity and relieved with rest. At this point they have tried treatment options including activity modification and NSAIDs. Their symptoms are not improving with conservative measures. The patient has not had a steroid injection at this time. ? 04/25/2023 Patient-entered Ortho Intake Form Referring provider [...] Never Alcohol intake? Yes Taking opioid/narcotic? No ? 04/25/2023 Patient-Reported Satisfaction Current state satisfactory? No Prior treatment? No Currently taking narcotics? No ? 04/25/2023 PROMIS Upper Extremity PROMIS UE Function Score 35 (moderate dysfunction) ? 04/25/2023 PROMIS Pain Interference PROMIS PI Score 56 (mild) ? 04/25/2023 Patient-entered QuickDASH Laterality Right QuickDASH Score 36.36 ? 04/25/2023 Depression Screening PHQ-2 Score Incomplete Patient Health Questionnaire-2 Score 0 ? Past Medical History Past Medical History: Diagnosis Date ??? Gallstones ? Past Surgical History Past Surgical History: Procedure Laterality Date ??? CARPAL TUNNEL SURGERY ? Family history noncontributory ?? Social History ?? Socioeconomic History ??? Marital status: ? Spouse name: Not on file ??? Number of children: Not on file ??? Years of education: Not on file ??? Highest education level: Not on file Occupational History ??? Not on file Tobacco Use ??? Smoking status: Never ??? Smokeless tobacco: Never Vaping Use ??? Vaping Use: Never used Substance and Sexual Activity ??? Alcohol use: Yes ? Comment: social ??? Drug use: Never ??? Sexual activity: Yes Other Topics Concern ??? Not on file Social History Narrative ??? Not on file ?? Social Determinants of Health ?? Financial Resource Strain: Not on file Food Insecurity: Not on file Transportation Needs: Not on file Stress: Not on file Housing Stability: Not on file ?? Current Outpatient Medications on File Prior to Visit Medication Sig Dispense Refill ??? hydroxychloroquine (Plaquenil) 200 MG tablet Take 1 (one) tablet by mouth once daily 90 tablet 1 ??? meloxicam (Mobic) 15 MG tablet Take 1 (one) tablet by mouth once daily 90 tablet 1 ?? No current facility-administered medications on file prior to visit. ?? No Known Allergies Review of Systems - 10 organ system review negative except for bilateral thumb pain. ?? Physical Exam: Constitutional: Well developed, well nourished. No acute distress. HEENT: Atraumatic. Respiratory: Respirations are unlabored and even. No audible wheezes. Cardiovascular: Regular rate with palpable, symmetric radial pulses. Gastrointestinal: Non-tender abdomen to palpation. Lymphatic: No lymphedema is noted in the extremities. Psychiatric: The patient is cooperative and interacts appropriately during the exam. Alert and oriented x 3. Neurologic: no focal deficits over the upper extremity. Skin: The skin is intact over the forearm and hand with no rashes. ?? Bilateral thumb: No visible wounds. Normal skin. Brisk capillary refill. + tenderness at the A1 agustin. + nodularity at the A1 agustin. - locking with active or passive thumb IP flexion. Bilateral tenderness at the CMC joint grind test positive ?? Radiographs: no images today ?? Chart review: I reviewed the patient's chart including previous visits, radiographic imaging and all relevant exams. ?? Assessment: 47 year old female with bilateral trigger thumb and bilateral first CMC arthritis. ?? Plan: I discussed the natural history of the disease and explained that after 3 steroid injections with no sustained resolution, we will need to resort to surgery - trigger thumb release. The patientwas agreeable with the treatment plan and elected to proceed with injections to the bilateral thumbA1 pulleys (#1). ?? For the CMC joints of both thumbs, we agreed to proceed with steroid injections #1 ?? Future visit: no imaging. ?? Hipolito Cat MD, [facility] Hand, Shoulder and Elbow [employer] Officer of Orthopaedic Surgery [facility] Orthopedics - [facility] Specialized Medicine - [address] [facility] For Appointments: [facility] [facility] [facility], [address] A [facility] - [facility] - [address], [address]- [place] For Appointments: For all clinical questions: ?? * Shena Terrazas RN - 09/07/2023 8:34 AM CDT Pt presents with B trigger thumb and pain Pt states the injections lasted for 4 months but the pain in her palm never went away with the injections Pt pain 8/10 with use Numbness in hands at night, pt tried bracing without relief Pt has not had EMG documented in this encounter Procedure Notes * Hipolito Cat MD - 09/07/2023 8:57 AM CDT Images from the original note were not included. Thumb Carpo-Metacarpal Joint Injection Procedure Note Pre-operative Diagnosis: bilateral thumb CMCJ arthritis. Post-operative Diagnosis: same Indications: same Procedure Details: Consent was obtained for the procedure. The dorsal area of the bilateral thumb CMCJ was prepped with alcohol. Using a 27G needle, the CMC joint was infiltrated with 10 mg Kenalog + 0.5 ml 1% lidocaine. An appropriate band-aid was applied. The patient tolerated the procedure well. Complications: none Hipolito Cat MD, [facility] Hand, Shoulder and Elbow [employer] Officer of Orthopaedic Surgery [facility] Orthopedics - [facility] for [facility] Medicine - [address] [place] [address] For Appointments: [facility] [facility] [facility], [address] [facility] - [facility] - [address] [facility], [address] For Appointments: For all clinical questions: * Hipolito Cat MD - 09/07/2023 8:57 AM CDT Images from the original note were not included. Trigger Finger Injection Procedure Note Pre-operative Diagnosis: Bilateral Thumb Trigger finger(s). Post-operative Diagnosis: same Indications: same Procedure Details: Consent was obtained for the procedure. The volar area of the base of the Bilateral Thumb was prepped with alcohol. Using a 27G needle, the flexor tendon sheath at the A1 agustin area was injected with 0.25cc 1% lidocaine and 10 mg of Kenalog. An appropriate band-aid was applied. The patient tolerated the procedure well. Complications: none Hipolito Cat MD, [facility] Hand, Shoulder and Elbow [employer] Officer of Orthopaedic Surgery [facility] Orthopedics - [facility] Hospital Medicine - [address] [facility] For Appointments: [facility], [address] [facility] - [address] [facility], [address] For Appointments: For all clinical questions: documented in this encounter Plan of Treatment Not on file documented as of this encounter Visit Diagnoses Diagnosis Trigger thumb, right thumb- Primary Trigger thumb, left thumb Arthritis of carpometacarpal (CMC) joint of right thumb Arthritis of carpometacarpal (CMC) joint of left thumb documented in this encounter Administered Medications Inactive Administered Medications - up to 3 most recent administrations Medication Order MAR Action Action Date Dose Rate Site lidocaine PF (Xylocaine MPF) 1 % injection Infiltration, ONCE, 1 dose, On Sun09/07/23 at 0930 $ Given 09/07/2023 9:28 AM CDT 0.25 mL Finger Right Hand lidocaine PF (Xylocaine MPF) 1 % injection Infiltration, ONCE, 1 dose, On Sun09/07/23 at 0930 $ Given 09/07/2023 9:28 AM CDT 0.25 mL Finger Right Hand lidocaine PF (Xylocaine MPF) 1 % injection Infiltration, ONCE, 1 dose, On Sun09/07/23 at 0930 $ Given 09/07/2023 9:12 AM CDT 0.25 mL Finger Left Hand lidocaine PF (Xylocaine MPF) 1 % injection Infiltration, ONCE, 1 dose, On Sun09/07/23 at 0930 $ Given 09/07/2023 9:11 AM CDT 0.25 mL Finger Left Hand triamcinolone acetonide (Kenalog-40) injection 10 mg 10 mg, Infiltration, ONCE, 1 dose, On Sun09/07/23 at 0930, Shake well before using. $ Given 09/07/2023 9:30 AM CDT 10 mg Finger Right Hand triamcinolone acetonide (Kenalog-40) injection 10 mg 10 mg, Infiltration, ONCE, 1 dose, On Sun09/07/23 at 0930, Shake well before using. $ Given 09/07/2023 9:30 AM CDT 10 mg Finger Right Hand triamcinolone acetonide (Kenalog-40) injection 10 mg 10 mg, Infiltration, ONCE, 1 dose, On Sun09/07/23 at 0930, Shake well before using. $ Given 09/07/2023 9:29 AM CDT 10 mg Finger Left Hand triamcinolone acetonide (Kenalog-40) injection 10 mg 10 mg, Infiltration, ONCE, 1 dose, On Sun09/07/23 at 0930, Shake well before using. $ Given 09/07/2023 9:29 AM CDT 10 mg Finger Left Hand documented in this encounter Care Teams Channel Process Supervisor Relationship Specialty Start Date End Date Siva Burgos MD [address] [place] [address] PCP - General Internal Medicine 07/06/22 documented as of this encounter
--- OUTSIDE RECORDS SUMMARY | 2024-06-23 18:20 | XMS_ITS | Encounter Summary ---
Author Organization [facility] Address [address] [place] [address] Care Team Providers Care Dress Draper Name Role Phone Siva Burgos MD Primary Care Provider Reason for Referral * Evaluate & Treat (Routine) - Closed Specialty Diagnoses / Procedures Referred By Travis elizabeth Referred To Contact Orthopedics Diagnoses Trigger finger, unspecified finger, unspecified laterality Francisco Martino MD [address] [place] [address] [address] [place] [address] [facility] [address] [place] [address] Referral ID Status Reason Start Date Expiration Date V isits Requested Visits Authorized [id number] Closed Specialty Services Required 04/03/2023 04/02/2024 1 1 Encounter Details Date Type Department Care Team (Late st Contact Info) Description 04/03/2023 Orders Only [facility] - Rheumatology [address] [place] [address], [place] [address] Francisco Martino MD [address] [place] [address] [address] [place] [address] Trigger finger, unspecified finger, unspecified laterality Social History Tobacco Use Types Packs/Day Years [...] occasion? Never 12/29/2022 PHQ-2 Answer Date Recorded PHQ2 TOTAL SCORE 0 08/08/2022 Sex and Gender Information Value Date Recorded Sex Assigned at Not on file Gender Identity Not on file Sexual Orientation Not on file documented as of this encounter Plan of Treatment Scheduled Referrals Name Type Priority Associated Diagnoses Orde r Schedule Ref to Ortho Hand Surgeon - [facility] Outpatient Referral Routine Trigger finger, unspecified finger, unspecified laterality 1 Occurrences starting 04/03/2023 until 04/03/2024 documented as of this encounter Visit Diagnoses Diagnosis Trigger finger, unspecified finger, unspecified laterality- Primary documented in this encounter Care Teams Dress Draper Relationship Specialty Start Date End Date Siva Burgos MD [address] [place] [address] PCP - General Internal Medicine 07/06/22 documented as of this encounter
--- OUTSIDE RECORDS SUMMARY | 2024-06-23 18:20 | XMS_ITS | Encounter Summary ---
Author Organization [facility] Address [address] [place] [address] Care Team Providers Care Stock And Station Agent Name Role Phone Siva Burgos MD Primary Care Provider [phone] Encounter Details Date Type Department Care Team (Latest Contact Info) Description 09/07/2023 Travel Social History Tobacco Use Types Packs/Day [...] on filedocumented in this encounter Care Teams Stock And Station Agent Relationship Specialty Start Date End Date Siva Burgos MD [address] [place] [address] PCP - General Internal Medicine 07/06/22 documented as of this encounter
--- OUTSIDE RECORDS SUMMARY | 2024-06-23 18:20 | XMS_ITS | Encounter Summary ---
Author Organization [facility] Address [address] [place] [address] Care Team Providers Care Geographic Information Systems Director Name Role Phone Siva Burgos MD Primary Care Provider [phone] Encounter Details Date Type Department Care Team (Latest Contact Info) Description 02/08/2023 Travel Social History Tobacco Use Types Packs/Day [...] on filedocumented in this encounter Care Teams Geographic Information Systems Director Relationship Specialty Start Date End Date Siva Burgos MD [address] [place] [address] PCP - General Internal Medicine 07/06/22 documented as of this encounter
--- OUTSIDE RECORDS SUMMARY | 2024-06-23 18:20 | XMS_ITS | Encounter Summary ---
Author Organization [facility] Health Address [address] [facility] [address] Care Team Providers Care Satellite Manager Name Role Phone Siva Burgos MD Primary Care Provider [phone]- [phone] Reason for Visit * Reason Comments Positive LIAM Encounter Details Date Type Department Care Team (Late st Contact Info) Description 08/08/2022 2:40 PM 6TH GRADE TEACHER Office Visit [facility] [address] [place] [address], [facility] [place] [address] Francisco Martino MD [address] [place] [address] [place] [address] Positive LIAM (antinuclear antibody) (Primary Dx); Raynaud's disease without gangrene; Polyarthralgia Social History Tobacco Use Types Packs/Day Years [...] on file documented as of this encounter Last Filed Vital Signs Vital Sign Reading Time Taken Comments Blood Pressure 110/64 08/08/2022 2:52 PM 6TH GRADE TEACHER Pulse 72 08/08/2022 2:52 PM 6TH GRADE TEACHER Temperature 36.3 ??C (97.3 ??F) 08/08/2022 2:52 PM CS T Respiratory Rate - - Oxygen Saturation 98% 08/08/2022 2:52 PM 6TH GRADE TEACHER Inhaled Oxygen Concentration - - Weight 57.9 kg (127 lb 9.6 oz) 08/08/2022 2:52 P M 6TH GRADE TEACHER Height 162.6 cm (5' 4 ) 08/08/2022 2:52 PM 6TH GRADE TEACHER Body Mass Index 21.9 08/08/2022 2:52 PM 6TH GRADE TEACHER documented in this encounter Progress Notes * Francisco Martino MD - 08/08/2022 2:43 PM CST Images from the original note were not included. Rheumatology Clinic Note Patient: Luciana Yost ( 1975, ) Encounter Date: 08/08/2022 Chief Concern: + LIAM, Polyarthralagia Assessment & Recommendations Luciana Yost is a 46 year old female seen for follow up visit for + LIAM and polyarthralgia. #.+ LIAM: LIAM 1:320 centromere pattern. reported raynaud's symptoms. will check SSc panel including Centromere abs. #. Polyarthrlagia: - Onset: 2021. Phenotype: chronic low back pain, pain in DIPs,and left Achilles. I was not able to appreciate inflammatory arthritis signs on exam,MRI Left ankle without signs of inflammatory arthritis and X rays showed mild OA changes. currently her joints pain seem more mechanical in nature without clear signs of inflammatory arthritis. continue Mobic 15 mg daily. #. Follow-up: In 3 months or sooner if needed. Thank you for placing trust in us. I educated the patient regarding risks and benefits of the management plan, their medical problems, and contingency plans for worsening symptoms. Additional contributions to medical decision making for today's encounter: - I reviewed the patient's chart including review of clinical notes, laboratory results, and imaging results dating back to 07/10 Francisco Martino MD Division of Rheumatology Department of Internal Medicine [facility] Encounter Diagnoses, Orders, and Future Appointments: 1. Positive LIAM (antinuclear antibody) 2. Raynaud's disease without gangrene 3. Polyarthralgia Orders Placed This Encounter ??? CENTROMERE B ANTIBODIES ??? SCLERODERMA COMPREHENSIVE AB PANEL ??? meloxicam (Mobic) 15 MG tablet Future Appointments Date Time Provider Department Center 11/07/2022 2:40 PM Francisco Martino MD [id number] Subjective History of Present Illness: has pain in her fingers, difficulty turning door knobs. takes MObic 15 mg daily. Ankle still swellsup when she is on her feet longer. morning stiffness for 5-10 mins in hands. today she reported raynaud's symptoms for past 2 years. no GERD symptoms. Disease Hx from consult note: Jun 2021 noticing pain in her left ankle mostly after period of activity. feels stiff in morning. did PT with little improvement in symptoms. symptoms are persistent and occur daily. she reported pain in her right DIps since 2019 and diffuse pain in right index finger. 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 no h/o psoriasis of skin rashes. No other joints pain reported.takes PRN Mobic 7.5 at bedtime. takes PRNN Ibuprofen. chronic low back pain for years, unclear about morning stiffness. 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 does not wake her up from sleep. no change with activity, constant pain. Review of Systems: All other systems reviewed and negative or noncontributory except as stated in the HPI. Home Medications: Current Outpatient Medications: ??? meloxicam (Mobic) 15 MG tablet, Take 1 (one) tablet by mouth once daily, Disp: 90 tablet, Rfl: 1 Adverse Drugs Reactions: No Known Allergies Past Medical History: Past Medical History: Diagnosis Date ??? Gallstones Past Surgical History: Past Surgical History: Procedure Laterality Date ??? CARPAL TUNNEL SURGERY Immunization History: Immunization History Administered Date(s) Administered ??? Covid Inbilin primary monovalent 12+ yr 0.3mL Purple cap 10/12/2020, 11/01/2020 ??? FLU VACCINE QUAD RIV4 PF IM 07/06/2022 ??? FLU VACCINE TRI IIV3 SPLIT PF IM (FLUVIRIN) 03/17/2019 Social History: Social History Socioeconomic History ??? Marital status: Tobacco Use ??? Smoking status: Never ??? Smokeless tobacco: Never Vaping Use ??? Vaping Use: Never used Substance and Sexual Activity ??? Alcohol use: Yes Comment: social ??? Drug use: Never ??? Sexual activity: Yes Family History: Family History Problem Relation Name Age of Onset ??? Multiple Sclerosis Mother Patient Care Team: Patient Care Team: Siva Burgos MD as PCP - General (Internal Medicine) Objective Physical Exam BP 110/64 (BP SITE: RIGHT ARM, BP POSITION: SITTING, BP CUFF SIZE: 11) Pulse 72 Temp 97.3 ??F (36.3 ??C) (Oral) Ht 1.626 m (5' 4 ) Wt 57.9 kg (127 lb 9.6 oz) SpO2 98% BMI 21.90 kg/m?? GENERAL: not in acute distress HEENT/NECK: Eyes with white sclerae. No oropharyngeal lesions. CHEST/LUNGS: Normal work of breathing, CARDIOVASCULAR: Regular rhythm, no edema. SKIN/NAILS: No rashes or suspicious lesions on exposed skin. No sclerodactyly, calcinosis, digital pitting. . NEURO: Normal muscle bulk and strength in limbs. MSK: bony enlargement of PIPs and DIPs Small, medium and large joints of the appendicular skeleton were without swelling, warmth, No effusions, enthesitis, dactylitis Common Labs CBC Recent Labs Component Name 07/06/22 1032 WBC 4.6 HGB 14.2 MCV 91.9 PLTCOUNT 259 No results found for: NEUTABS, LYMPHS, MONO, EOS, BASO, GRANIMMABS Metabolic Profile Recent Labs Component Name 07/23/22 0925 07/06/22 1032 POTASSIUM - 4.2 CO2 - 26 BUN - 15 CREATININE - 0.69 GLUCOSE - 80 CALCIUM - 9.2 EGFR >90 - AST - 24 ALT - 18 ALKPHOS - 90 No results found for: MG, PHOS, DBIL UA & UPC No results found for: SPECGRAVUA, PHUA, PROTEINUA, BLOODUA, LEUKOCYTEUA, NITRITEUA, GLUCOSEUA, KETONEUA, BILIRUBINUA, UROBILINUA, REFLXSTAT, URMIC, SQUAMOUS, TRANSEPIUA, RBCUA, WBCUA, BACTUA, EOSINU No results found for: PROTEINTO, CREATININEUR, RONKSFCQX5GH No results for input(s): HCGURINE, HCGQUANT in the last 78226 hours. Latent Infections No results found for: HEPBSAG, HBVSAB, HEPBSAB, HEPBCAB, HEPCAB No results found for: QUANTIFER, QNTTBGOLD, QNTPLUSTB1, QNTPLUSTB2, QNTMITOGEN, QUANTIFERO, QUANTIFECI, QUANTIF, QUANNIL, QUAMIT, QFTTBAGN, ZJDIDUISP73, AFBSMR Immunology Labs Inflammatory Markers Recent Labs Component Name 07/06/22 1032 SEDRATE 2 CRP 0.6 RA-related Auto-Ab's No results found for: RF, RA, RAQNT, CCPIGG, CCPIGGIGA LIAM-related No results found for: ANATITER, ANAPATTERN, ANTINUCLE, ANAIGG, DSDNAABIU, ANTIDNADSABQ, DSDNAIGGAB,SMITHANTI, ANTICHRO, CHROMATINAB, SSAANTIBO, SSBANTIBO, SMRNPANTI, SMITHRNPAB, SCL70, ANTICENTROB, VD2FYEFI, AEAZE722PU, OTBLKQP4GS, HISTONEIGG No results for input(s): C3, C4 in the last 66621 hours. APLS-related Auto-Ab's No results found for: O9OFQMLIMK, I3NEZMFYDV, Q1WSMSDJUG, TQVU2QMI, SHVL8QYC, CRDLPNIGM, CRDLPNIGG,CRDLPNIGA, DILUTEPT, DPTCFMRATIO, TT, PTTLA, DRVVTBASE, LABINTE Myopathy No results found for: CK, ALDOLASE, SAE1AB, NXP2AB, MDA5AB, XPE2NEQ, MYOINTERP, MI2AB, P325621, PL12AB, PL7AB, OJAB, EJAB, SRPAB, SU7FIMAG, KUAB, SMITHRNPAB, IZZYG606UC, KHU92LJ, QPT15YK, VNKPNIOA5OLJ, ACHBLOCKAB, ACHBINDAB Vasculitis and ANCAs No results found for: NEUTCYTOAB, ANTIPROT3, ANTIMPO, G9HOMMD Genetics No results found for: HLAB27 Gammopathy/Paraproteinemia No results found for: KAPPAFREE, LAMBDAFREE, KLFREERATIO, IGM, IGG, IGA No results found for: SPEINTERP, SERUMPEALB, SERUMPEA1, SERUMPEA2, SERUMPEBE, SERUMPEGA, PROT, LABIMMURE, CRYOGLOBQUAL Other Labs Endocrine & Metabolic No results for input(s): URICACID, HGBA1C, TSH, T4FREE in the last 48529 hours. No results found for: PTXE69ZA Heme No results found for: RETICCTPCT, RETICULOCYTE, IRON, FERRITIN, TRANSFERRIN, TRANSFERRSAT, TIBC, FIBRINOGEN, DDIMER, VITB12, FOLATE, HAPTOGLOBIN, LDHTOTAL No results for input(s): PT, INR, PTT in the last 82409 hours. Renal No results found for: CALCIUMION, PHBLD, IONCAART, MAGNESIUM, PHOS, SODIUMRAN, POTASSIUMUR, CHLORIDER Cardiac & Lipids No results for input(s): TROPONINI, CKMB, BNP in the last 61257 hours. No results for input(s): CHOL, TRIG, HDL, LDLCALC, LDLDIRECT in the last 88210 hours. Respiratory No results found for: SARSCOV2, RINFLUANAA, RINFLUBNAA, INFLUARAPID, INFLUBRAPID, INFLUCNTRL, STREPARAPID, STREPAQC Hepatobiliary & GI No results found for: GGT, LIPASE, C4ILGTCQNVBL, CMVPCR, CMVSOURCE, GDHANTIGEN, CDIFFTOXINAB, CDIFFINTRP, GLIADINIGG, GLIADINIGA, ENDOMYSIA, TTRANIGA, TTRANIGG Drug Screen No results found for: THCUR, PCPUR, COCAINEUR, METHAMPHETUR, OPIATESUR, AMPHETUR, BENZODIAZUR, TCAUR, METHADONEUR, BARBITURATUR, OXYCODONEUR, PROPOXYUR Synovial Fluid No results found for: COLORFL, CLARITYFLUID, BFVOLUME, VISCOSITY, WBCFLUID, RBCFL, CRYSTALEXAM, DIFF, BFBAND, BFSEGS, BFLYMPH, BFMONO, BFEOS, BFMACRO, PATHDIFFRVW Neuro/CSF No results found for: GLUCSF, PROTEINCSF, QJD4MAPGVU, CNT3FXCSYM, WZSK1JLI, COCCIDIGG, QEO1NOW, CRYPTOAGCSF, ENTEROVIRPCR, OLIGOBAND, OLIGOBANDNUM, IGG, AZT9PFV, ALBUMINMS, MEMXZSD3ZMO, ALBUMININDEX,IGGINDEX, IGGALBRATIO, SYNTHESRTE, OLIGOCINTRP, TOXOPLASIGG, CYSTICERO Body Fluid No results found for: LABLD, GROSSDESCRIP, MICROPDESCR STIs (HIV, GC, Trich, Syphilis) No results found for: HIV12, UYW5YQCRJH, ZYG3LFW44QZS, CHLAMDIA, CHLTRNAA, GC, NGONORRNAA, TRICVAGAP, TRICHVAGBY, TPALLIDUM Cultures & Other Micro No results found for: URINECULT, BLOODCULT, BDERMAGUR, BDERMINTERP For assessment and recommendations, please see above. This note was generated using the DE[employer] speech recognition system. Grammatical errors, random wordinsertions, substitutions, deletions, pronoun errors, and incomplete sentences are an occasional consequence of this technology due to software limitations. Prior to signing the note, I reviewed it for misspellings or errors related to dictation to a reasonable extent, although it is possible that not all errors were caught or corrected. If there are questions or concerns about the content of this note or information contained within the body of this dictation, they should be addressed directlywith the author for clarification. Thank you. 6TH GRADE TEACHER documented in this encounter Plan of Treatment Scheduled Orders Name Type Priority Associated Diagnoses Orde r Schedule SCLERODERMA COMPREHENSIVE AB PANEL Lab Routine Positive LIAM (antinuclear antibody) Ordered: 08/08/2022 documented as of this encounter Procedures Procedure Name Priority Date/Time Associated Diagnosis Comments CENTROMERE B ANTIBODIES Routine 08/10/2022 7:39 AM 6TH GRADE TEACHER Positive LIAM (antinuclear antibody) documented in this encounter Results * (ABNORMAL) CENTROMERE B ANTIBODIES (08/10/2022 7:39 AM 6TH GRADE TEACHER) Centromere B Antibody >8.0 POS(A) <1.0 NEG [facility] Comment: REPORT COMMENT: FASTING:YES Test Performed at: [facility] [place] [address] [place], [place] ??[id number] LYUBOV RODGERS MD Blood BLOOD SPECIMEN / Unknown 08/10/2022 7:39 AM 6TH GRADE TEACHER 08/10/2022 7:45 AM 6TH GRADE TEACHER Francisco Martino MD LAB - SEROLOGY ORDER [facility] [address] [place] [address] documented in this encounter Visit Diagnoses Diagnosis Positive LIAM (antinuclear antibody)- Primary Other and unspecified nonspecific immunological findings Raynaud's disease without gangrene Polyarthralgia Pain in joint, multiple sites documented in this encounter Care Teams Satellite Manager Relationship Specialty Start Date End Date Siva Burgos MD [address] [place] [address] PCP - General Internal Medicine 07/06/22 documented as of this encounter
--- OUTSIDE RECORDS SUMMARY | 2024-06-23 18:20 | XMS_ITS | Encounter Summary ---
Author Organization [facility] Health Address [address] [facility] [place] [address] Care Team Providers Care Repairer Auto Clocks Name Role Phone Siva Burgos MD Primary Care Provider [phone]- [phone] Reason for Visit * Reason Comments Refill Request Encounter Details Date Type Department Care Team (Late st Contact Info) Description 11/05/2023 Refill [facility] - Rheumatology [address] [place] [address], [facility] [place] [address] Francisco Martino MD [address] [place] [address] [place] [address] Refill Request Social History Tobacco Use Types Packs/Day Years [...] on file documented as of this encounter Miscellaneous Notes * Telephone Encounter - Rj Almeida - 11/06/2023 9:25 AM CDT Refill Request Luciana Yost JOSE: 02/08/2023 NOV scheduled: 10/23/2023 LRF: 02/08/2023 Qty Disp: 90 # of refills: 1 Allergies: No Known Allergies Pended Medication Order: Requested Prescriptions Pending Prescriptions Disp Refills hydroxychloroquine (Plaquenil) 200 MG tablet [Pharmacy Med Name: HYDROXYCHLOROQUINE 200MG TABLETS] 90 tablet 1 Sig: TAKE 1 TABLET BY MOUTH EVERY DAY documented in this encounter Plan of Treatment Not on file documented as of this encounter Visit Diagnoses Not on filedocumented in this encounter Care Teams Repairer Auto Clocks Relationship Specialty Start Date End Date Siva Burgos MD [address] [place] [address] PCP - General Internal Medicine 07/06/22 documented as of this encounter
--- OUTSIDE RECORDS SUMMARY | 2024-06-23 18:20 | XMS_ITS | Encounter Summary ---
Author Organization [facility] Address [address] [facility] [place] [address] Care Team Providers Care Insurance Sales Manager Name Role Phone Siva Burgos MD Primary Care Provider [phone] Reason for Referral * Radiology Services (Routine) - Closed Specialty Diagnoses / Procedures Referred By Travis elizabeth Referred To Contact MRI Diagnoses Achilles tendinosis of left lower extremity Procedures MRI ANKLE LEFT WWO CONTRAST Francisco Martino MD [address] [address] [facility]ri [address] [place] [address] Referral ID Status Reason Start Date Expiration Date Visits Re quested Visits Authorized [id number] Closed 07/13/2022 07/13/2023 1 1 D PROPELLANT PROCESSOR Reason for Visit * Reason Comments Establish Care * Consult, Test & Treat (Routine) - Closed Specialty Diagnoses / Procedures Referred By Travis elizabeth Referred To Contact Rheumatology Diagnoses LIAM positive Siva Burgos MD [address] [place] [address] Referral ID Status Reason Start Date Expiration Date Visits Re quested Visits Authorized [id number] Closed 02/21/2022 02/21/2023 1 1 Encounter Details Date Type Department Care Team (Latest Contact Info) Description 07/06/2022 8:20 AM SOLID PROPELLANT PROCESSOR Office Visit [facility] [address] [facility] [place] [address] Francisco Martino MD [address] [facility] [address]L [place] [address] Polyarthralgia (Primary Dx); Need for influenza vaccination; Achilles tendinosis of left lower extremity; Chronic midline low back pain without sciatica Social History Tobacco Use Types Packs/Day Years Used Date Smoking Tobacco: Never Smokeless Tobacco: Never Tobacco Cessation:Counseling Given: Not Answered Alcohol Use Standard Drinks/Week Comments Yes 0 (1 standard drink = 0.6 oz pur e alcohol) social PHQ-2 Answer Date Recorded PHQ2 TOTAL SCORE 0 07/06/2022 Sex and Gender Information Value Date Recorded Sex Assigned at Not on file Gender Identity Not on file Sexual Orientation Not on file COVID-19 Exposure Response Date Recorded In the last 10 days, have yo u been in contact with someone who was confirmed or suspected to have Coronavirus/COVID-19? No / Unsure 07/06/2022 9:18 AM SOLID PROPELLANT PROCESSOR documented as of this encounter Last Filed Vital Signs Vital Sign Reading Time Taken Comments Blood Pressure 106/64 07/06/2022 8:34 AM SOLID PROPELLANT PROCESSOR Pulse 61 07/06/2022 8:34 AM SOLID PROPELLANT PROCESSOR Temperature 36.6 ??C (97.9 ??F) 07/06/2022 8:34 AM CS T Respiratory Rate - - Oxygen Saturation 100% 07/06/2022 8:34 AM SOLID PROPELLANT PROCESSOR Inhaled Oxygen Concentration - - Weight 57.8 kg (127 lb 6.4 oz) 07/06/2022 8:34 A M SOLID PROPELLANT PROCESSOR Height 157.5 cm (5' 2 ) 07/06/2022 8:34 AM SOLID PROPELLANT PROCESSOR Body Mass Index 23.3 07/06/2022 8:34 AM SOLID PROPELLANT PROCESSOR documented in this encounter Progress Notes * Francisco Martino MD - 07/06/2022 8:33 AM CST Images from the original note were not included. Rheumatology Clinic Note Patient: Luciana Yost ( 1975, ) Encounter Date: 07/06/2022 Chief Concern: Left Achilles pain, + LIAM(not able to see records for + LIAM) Assessment & Recommendations Luciana Yost is a 46 year old female seen as new consult for evaluation of left Achilles pain. #. Polyarthrlagia: - Onset: 2021. Phenotype: chronic low back pain, pain in DIPs,and left Achilles. I was not able to appreciate inflammatory arthritis signs on exam, however, with Achilles area symptoms and DIPs pain/low back pain need to consider inflammatory arthritis like Spondyloarthritis. referral also says +LIAM but no records of lab data so will check LIAM, BURAK profile. check HLA B27 and RA serologies with inf lammatory markers, as X rays of Ankle been negative so will get MRI left ankle to better visualize soft tissues and signs of Achilles Enthesitis vs any other pathology that could explain her symptoms. advised to increase Mobic dose to 15 mg daily. #. Need for Flu vaccine: flu vaccine given in clinic today get MSK X rays as below #. Follow-up: In 6 weeks or sooner if needed. Thank you for placing trust in us. I educated the patient regarding risks and benefits of the management plan, their medical problems, and contingency plans for worsening symptoms. Additional contributions to medical decision making for today's encounter: - The patient has a -undiagnosed new problem with uncertain prognosis and needs further workup. - I reviewed the patient's chart including review of clinical notes, laboratory results, and imaging results dating back to 01/06 - Total time spent reviewing records, conducting interview and physical, counseling, care coordination, placing any orders for investigative studies and/or medications, and documentation: 60+ minutes. Francisco Martino MD Division of Rheumatology Department of Internal Medicine [facility] Encounter Diagnoses, Orders, and Future Appointments: 1. Polyarthralgia 2. Need for influenza vaccination 3. Achilles tendinosis of left lower extremity 4. Chronic midline low back pain without sciatica Orders Placed This Encounter ??? XR HAND LEFT 3VW OR MORE ??? XR HAND RIGHT 3VW OR MORE ??? XR WRIST LEFT 3VW OR MORE ??? XR WRIST RIGHT 3VW OR MORE ??? XR SI JOINTS 3VW OR MORE ??? MRI ANKLE LEFT WWO CONTRAST ??? FLU VACCINE (Flublok) QUAD RIV4 PF IM ??? CYCLIC CITRULLINATED PEPTIDE(CCP) AB IGG ??? RHEUMATOID FACTOR BLOOD QUANTITATIVE ??? HLA TYPING B27 ??? CBC WITH DIFFERENTIAL ??? COMPREHENSIVE METABOLIC PANEL ??? C-REACTIVE PROTEIN ??? ERYTHROCYTE SEDIMENTATION RATE ??? LIAM BLOOD SCREEN W/REFLEX TITER ??? SS-A (SJOGREN'S) ANTIBODY ??? SS-B (SJOGREN'S) ANTIBODY ??? DNA ANTIBODY DS CRITHIDIA TITER ??? DAVIS (SM) ANTIBODY BURAK ??? WEBBING WEAVER ANTIBODY Future Appointments Date Time Provider Department Center 07/23/2022 8:30 AM [facility] MRI [facility] 2 3T [facility] 08/08/2022 2:40 PM Francisco Martino MD [id number] [place] [facility] Subjective History of Present Illness: Jun 2021 noticing pain in her left ankle mostly after period of activity. feels stiff in morning. did PT with little improvement in symptoms. symptoms are persistent and occur daily. she reported pain in her right DIps since 2019 and diffuse pain in right index finger. 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 no h/o psoriasis of skin rashes. No [...] HPI. Home Medications: Current Outpatient Medications: ??? ibuprofen (Motrin) 200 MG tablet, Take by mouth every 6 hours as needed, Disp: , Rfl: ??? meloxicam (Mobic) 7.5 MG tablet, Take 1 (one) tablet by mouth once daily, Disp: , Rfl: Adverse Drugs Reactions: No Known Allergies Past Medical History: There is no problem list on file for this patient. Past Medical History: Diagnosis Date ??? Gallstones Past Surgical History: Past Surgical History: Procedure Laterality Date ??? CARPAL TUNNEL SURGERY Immunization History: Immunization History Administered Date(s) Administered ??? FLU VACCINE QUAD RIV4 PF IM 07/06/2022 Social History: Social History Socioeconomic History ??? [...] General (Internal Medicine) Objective Physical Exam BP 106/64 (BP SITE: RIGHT ARM, BP POSITION: SITTING, BP CUFF SIZE: 11) Pulse 61 Temp 97.9 ??F (36.6 ??C) (Oral) Ht 1.575 m (5' 2 ) Wt 57.8 kg (127 lb 6.4 oz) SpO2 100% BMI 23.30 kg/m?? GENERAL: not in acute distress HEENT/NECK: [...] GRANIMMABS Metabolic Profile Recent Labs Component Name 07/06/22 1032 POTASSIUM 4.2 CO2 26 BUN 15 CREATININE 0.69 GLUCOSE 80 CALCIUM 9.2 AST 24 ALT 18 ALKPHOS 90 No results found for: MG, PHOS, DBIL UA & UPC No results found for: SPECGRAVUA, PHUA, PROTEINUA, BLOODUA, LEUKOCYTEUA, NITRITEUA, GLUCOSEUA, KETONEUA, BILIRUBINUA, UROBILINUA, REFLXSTAT, URMIC, SQUAMOUS, TRANSEPIUA, RBCUA, WBCUA, BACTUA, EOSINU No results found for: PROTEINTO, CREATININEUR, OFHNHQDWU1DM No results for input(s): HCGURINE, HCGQUANT in the last 53940 hours. Latent Infections No results found for: HEPBSAG, HBVSAB, HEPBSAB, HEPBCAB, HEPCAB No results found for: QUANTIFER, QNTTBGOLD, QNTPLUSTB1, QNTPLUSTB2, QNTMITOGEN, QUANTIFERO, QUANTIFECI, QUANTIF, QUANNIL, QUAMIT, QFTTBAGN, FZDOYWNRA12, AFBSMR Immunology Labs Inflammatory Markers Recent Labs Component Name 07/06/22 1032 SEDRATE 2 CRP 0.6 RA-related Auto-Ab's No results found for: RF, RA, RAQNT, CCPIGG, CCPIGGIGA LIAM-related No results found for: ANATITER, ANAPATTERN, ANTINUCLE, ANAIGG, DSDNAABIU, ANTIDNADSABQ, DSDNAIGGAB,SMITHANTI, ANTICHRO, CHROMATINAB, SSAANTIBO, SSBANTIBO, SMRNPANTI, SMITHRNPAB, SCL70, ANTICENTROB, JT5ELLFO, IBNVB880SS, OZZXUKT5WT, HISTONEIGG No results for input(s): C3, C4 in the last 35652 hours. APLS-related Auto-Ab's No results found for: E1HACHXDWS, C6BZCZOTBL, N4TCAWBIVI, KWEV6JGY, SPZD8RVJ, CRDLPNIGM, CRDLPNIGG,CRDLPNIGA, DILUTEPT, DPTCFMRATIO, TT, PTTLA, DRVVTBASE, LABINTE Myopathy No results found for: CK, ALDOLASE, SAE1AB, NXP2AB, MDA5AB, ADC8CNO, MYOINTERP, MI2AB, C956740, PL12AB, PL7AB, OJAB, EJAB, SRPAB, PP5WVMHK, KUAB, SMITHRNPAB, EEHRP216BN, VXJ02QC, GQZ61LT, RHXDMSGK7OMW, ACHBLOCKAB, ACHBINDAB Vasculitis and ANCAs No results found for: NEUTCYTOAB, ANTIPROT3, ANTIMPO, P6GATXB Genetics No results found for: HLAB27 Gammopathy/Paraproteinemia No results found for: KAPPAFREE, LAMBDAFREE, KLFREERATIO, IGM, IGG, IGA No results found for: SPEINTERP, SERUMPEALB, SERUMPEA1, SERUMPEA2, SERUMPEBE, SERUMPEGA, PROT, LABIMMURE, CRYOGLOBQUAL Other Labs Endocrine & Metabolic No results for input(s): URICACID, HGBA1C, TSH, T4FREE in the last 93169 hours. No results found for: DIDR28ET Heme No results found for: RETICCTPCT, RETICULOCYTE, IRON, FERRITIN, TRANSFERRIN, TRANSFERRSAT, TIBC, FIBRINOGEN, DDIMER, VITB12, FOLATE, HAPTOGLOBIN, LDHTOTAL No results for input(s): PT, INR, PTT in the last 35841 hours. Renal No results found for: CALCIUMION, PHBLD, IONCAART, MAGNESIUM, PHOS, SODIUMRAN, POTASSIUMUR, CHLORIDER Cardiac & Lipids No results for input(s): TROPONINI, CKMB, BNP in the last 57037 hours. No results for input(s): CHOL, TRIG, HDL, LDLCALC, LDLDIRECT in the last 18844 hours. Respiratory No results found for: SARSCOV2, RINFLUANAA, RINFLUBNAA, INFLUARAPID, INFLUBRAPID, INFLUCNTRL, STREPARAPID, STREPAQC Hepatobiliary & GI No results found for: GGT, LIPASE, Z0MFPWQRPPYI, CMVPCR, CMVSOURCE, GDHANTIGEN, CDIFFTOXINAB, CDIFFINTRP, GLIADINIGG, GLIADINIGA, ENDOMYSIA, TTRANIGA, TTRANIGG Drug Screen No results found for: THCUR, PCPUR, COCAINEUR, METHAMPHETUR, OPIATESUR, AMPHETUR, BENZODIAZUR, TCAUR, METHADONEUR, BARBITURATUR, OXYCODONEUR, PROPOXYUR Synovial Fluid No results found for: COLORFL, CLARITYFLUID, BFVOLUME, VISCOSITY, WBCFLUID, RBCFL, CRYSTALEXAM, DIFF, BFBAND, BFSEGS, BFLYMPH, BFMONO, BFEOS, BFMACRO, PATHDIFFRVW Neuro/CSF No results found for: GLUCSF, PROTEINCSF, IFI9OLWEKS, AYE6QGKCAR, ULUG2AJZ, COCCIDIGG, EFX2HOZ, CRYPTOAGCSF, ENTEROVIRPCR, OLIGOBAND, OLIGOBANDNUM, IGG, GAV2IYU, ALBUMINMS, UAXKBMO3WTL, ALBUMININDEX,IGGINDEX, IGGALBRATIO, SYNTHESRTE, OLIGOCINTRP, TOXOPLASIGG, CYSTICERO Body Fluid No results found for: LABLD, GROSSDESCRIP, MICROPDESCR STIs (HIV, GC, Trich, Syphilis) No results found for: HIV12, OQN3QAZQKD, EOG5RWX72BLO, CHLAMDIA, CHLTRNAA, GC, NGONORRNAA, TRICVAGAP, TRICHVAGBY, TPALLIDUM Cultures & Other Micro No results found for: URINECULT, BLOODCULT, BDERMAGUR, BDERMINTERP For assessment and recommendations, please see above. This note was generated using the Posse speech recognition system. Grammatical errors, random wordinsertions, [...] directlywith the author for clarification. Thank you. D PROPELLANT PROCESSOR documented in this encounter Plan of Treatment Scheduled Orders Name Type Priority Associated Diagnoses Orde r Schedule DNA ANTIBODY DS CRITHIDIA TITER Lab Routine Polyarthralgia Ordered: 07/06/2022 documented as of this encounter Procedures Procedure Name Priority Date/Time Associated Diagnosis Comments DAVIS (SM) ANTIBODY BURAK Routine 07/06/2022 10:32 AM SOLID PROPELLANT PROCESSOR Polyarthralgia WEBBING WEAVER ANTIBODY Routine 07/06/2022 10:32 AM SOLID PROPELLANT PROCESSOR Polyarthralgia RHEUMATOID FACTOR BLOOD QUANTITATIVE Routine 07/06/2022 10:32 AM SOLID PROPELLANT PROCESSOR Polyarthralgia C-REACTIVE PROTEIN Routine 07/06/2022 10 :32 AM SOLID PROPELLANT PROCESSOR Polyarthralgia LIAM BLOOD SCREEN W/REFLEX TITER Routine 07/06/2022 10:32 AM SOLID PROPELLANT PROCESSOR Polyarthralgia HLA TYPING B27 Routine 07/06/2022 10:32 AM SOLID PROPELLANT PROCESSOR Polyarthralgia SS-B (SJOGREN'S) ANTIBODY Routine 07/06/2022 10:32 AM SOLID PROPELLANT PROCESSOR Polyarthralgia SS-A (SJOGREN'S) ANTIBODY Routine 07/06/2022 10:32 AM SOLID PROPELLANT PROCESSOR Polyarthralgia CYCLIC CITRULLINATED PEPTIDE(CCP) AB IGG Routine 07/06/2022 10:32 AM SOLID PROPELLANT PROCESSOR Polyarthralgia ERYTHROCYTE SEDIMENTATION RATE Routine 07/06/2022 10:32 AM SOLID PROPELLANT PROCESSOR Polyarthralgia CBC W AUTO DIFFERENTIAL Routine 07/06/2022 10:32 AM SOLID PROPELLANT PROCESSOR Polyarthralgia COMPREHENSIVE METABOLIC PANEL Routine 07/06/2022 10:32 AM SOLID PROPELLANT PROCESSOR Polyarthralgia documented in this encounter Results * MRI ANKLE LEFT WWO CONTRAST (07/23/2022 10:49 AM SOLID PROPELLANT PROCESSOR) Anatomical Region Laterality Modality Ankle / Foot, Lower Extremity Ma gnetic Resonance 07/24/2022 8:02 AM SOLID PROPELLANT PROCESSOR Impressions 07/24/2022 8:26 AM SOLID PROPELLANT PROCESSOR IMPRESSION: 1. The Achilles tendon is normal. 2. 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 3. A 3 mm cystic osteochondral lesion at the lateral aspect of the talar dome. 4. No evidence of synovitis or tenosynovitis. > Interpreting Provider: Yandel Crawford MD on 07/24/2022 8:26 AM Narrative 07/24/2022 8:26 AM SOLID PROPELLANT PROCESSOR PROCEDURE: ??MRI ANKLE LEFT WWO CONTRAST, DATE/TIME OF EXAM: ??07/23/2022 10:52 AM, LOCATION ??[facility] INDICATION: M67.88: Achilles tendinosis of left [...] CONTRAST, DATE/TIME OF EXAM: 0:52 AM, LOCATION [facility] INDICATION: M67.88: Achilles tendinosis of left [...] AM Francisco Martino MD MR ORDERABLES * WEBBING WEAVER ANTIBODY (07/06/2022 10:32 AM SOLID PROPELLANT PROCESSOR) WEBBING WEAVER Antibody <1.0 NEG <1.0 NEG AI [facility] Comment: Test Performed at: [facility] [address] [place] [address] ??[phone] SKY GODINEZ DO,MPH Blood BLOOD SPECIMEN / Unknown 07/06/2022 10:32 AM SOLID PROPELLANT PROCESSOR 07/06/2022 10:37 AM SOLID PROPELLANT PROCESSOR Francisco Martino MD LAB - CHEMISTRY ORDFara SANFORD Performing Organization Address [facility] Co de Phone Number [facility] [address] [place] [address] * DAVIS (SM) ANTIBODY BURAK (07/06/2022 10:32 AM SOLID PROPELLANT PROCESSOR) SM Antibody <1.0 NEG <1.0 NEG AI [facility] Comment: Test Performed at: [facility] [address] [place] [address] ??[phone] SKY GODINEZ DO,MPH Blood BLOOD SPECIMEN / Unknown 07/06/2022 10:32 AM SOLID PROPELLANT PROCESSOR 07/06/2022 10:37 AM SOLID PROPELLANT PROCESSOR Francisco Martino MD LAB - CHEMISTRY JEFFREY SANFORD Performing Organization Address [facility] Co de Phone Number [facility] [address] [place] [address] * SS-B (SJOGREN'S) ANTIBODY (07/06/2022 10:32 AM SOLID PROPELLANT PROCESSOR) Pathologist [facility] Sjogren's Antibodies (SSB) <1.0 NEG <1.0 NEG AI [facility] Comment: Test Performed at: [facility] [address] [place] [address] ??[phone] SKY GODINEZ DO,MPH Blood BLOOD SPECIMEN / Unknown 07/06/2022 10:32 AM SOLID PROPELLANT PROCESSOR 07/06/2022 10:37 AM SOLID PROPELLANT PROCESSOR Francisco Martino MD LAB - CHEMISTRY ORDFara SANFORD Performing Organization Address [facility] Co de Phone Number [facility] [address] [place] [address] * SS-A (SJOGREN'S) ANTIBODY (07/06/2022 10:32 AM SOLID PROPELLANT PROCESSOR) Pathologist [facility] Sjogren's Antibodies (SSA) <1.0 NEG <1.0 NEG AI [facility] Comment: Test Performed at: [facility] ??[phone] SKY GODINEZ DO,MPH Blood BLOOD SPECIMEN / Unknown 07/06/2022 10:32 AM SOLID PROPELLANT PROCESSOR 07/06/2022 10:37 AM SOLID PROPELLANT PROCESSOR Francisco Martino MD LAB - CHEMISTRY ORDFara SANFORD Performing Organization Address [facility] Co de Phone Number [facility] [phone] [place] [phone] * (ABNORMAL) LIAM BLOOD SCREEN W/REFLEX TITER (07/06/2022 10:32 AM SOLID PROPELLANT PROCESSOR) Pathologist [facility] LIAM Screen POSITIVE( A) NEGATIVE [facility] Comment: LIAM IFA is a first line screen for detecting the presence of up to approximately 150 autoantibodies in various autoimmune diseases. A positive LIAM IFA result is suggestive of autoimmune disease and reflexes to titer and pattern. Further laboratory testing may be considered if clinically indicated. For additional information, please refer to http://education.[employer]/faq/WRC825 (This link is being provided for informational/ educational purposes only.) ?? Test Performed at: [facility] [address] [place], [place] ??[phone] SKY GODINEZ DO,MPH Blood BLOOD SPECIMEN / Unknown 07/06/2022 10:32 AM SOLID PROPELLANT PROCESSOR 07/06/2022 10:37 AM SOLID PROPELLANT PROCESSOR Francisco Martino MD LAB - CHEMISTRY JEFFREY [facility]FORD Performing Organization Address [facility] Co de Phone Number [facility] [phone] [place] [address] * ERYTHROCYTE SEDIMENTATION RATE (07/06/2022 10:32 AM SOLID PROPELLANT PROCESSOR) Erythrocyte Sedimentation Rate Westergren 2 < OR = 20 mm/h [facility] Comment: Test Performed at: [facility] [place] [address] [place], [place] ??[phone] SKY GODINEZ DO,MPH Blood BLOOD SPECIMEN / Unknown 07/06/2022 10:32 AM SOLID PROPELLANT PROCESSOR 07/06/2022 10:37 AM SOLID PROPELLANT PROCESSOR Francisco Martino MD LAB - HEMATOLOGY YUNI ALARCON Performing Organization Address [facility] Co de Phone Number [facility] [address] [place] [address] * C-REACTIVE PROTEIN (07/06/2022 10:32 AM SOLID PROPELLANT PROCESSOR) C-Reactive Protein 0.6 <8.0 mg/L [facility] Comment: Test Performed at: [facility] [place] [address] [place], [place] ??[phone] SKY GODINEZ DO,MPH Blood BLOOD SPECIMEN / Unknown 07/06/2022 10:32 AM SOLID PROPELLANT PROCESSOR 07/06/2022 10:37 AM SOLID PROPELLANT PROCESSOR Francisco Martino MD LAB - CHEMISTRY JEFFREY SANFORD Performing Organization Address [facility] Co de Phone Number [facility] [phone] [place] [address] * COMPREHENSIVE METABOLIC PANEL (07/06/2022 10:32 AM SOLID PROPELLANT PROCESSOR) Glucose 80 65 - 99 mg/dL [facility] Comment: ? Fasting reference interval BUN 15 7 - 25 mg/dL [facility] Creatinine 0.69 0.50 - 0.99 mg/dL [facility] eGFR by Cystatin C 108 > OR = 60 mL/min/1. 73m2 [facility] Comment: The eGFR is based on the CKD-EPI 2020 equation. To calculate the new eGFR from a previous Creatinine or Cystatin C result, go to https://www.kidney.org/professionals/ kdoqi/gfr%5Fcalculator BUN/Creatinine Ratio NOT APPLICABLE 6 - 22 (calc) [facility] Sodium 142 135 - 146 mmol/L [facility] Potassium 4.2 3.5 - 5.3 mmol/L [facility] Chloride 107 98 - 110 mmol/L [facility] CO2 26 20 - 32 mmol/L [facility] Calcium 9.2 8.6 - 10.2 mg/dL [facility] Protein Total 6.6 6.1 - 8.1 g/dL [facility] Albumin 4.2 3.6 - 5.1 g/dL [facility] Globulin Total 2.4 1.9 - 3.7 g/dL (calc) [facility] Albumin/Globuli n Ratio 1.8 1.0 - 2.5 (calc) [facility] Bilirubin Total 0.6 0.2 - 1.2 mg/dL [facility] Alkaline Phosphatase 90 31 - 125 U/L [facility] AST 24 10 - 35 U/L [facility] ALT 18 6 - 29 U/L [facility] Comment: Test Performed at: [facility] [address] ??[phone] SKY GODINEZ DO,MPH Blood BLOOD SPECIMEN / Unknown 07/06/2022 10:32 AM SOLID PROPELLANT PROCESSOR 07/06/2022 10:37 AM SOLID PROPELLANT PROCESSOR Francisco Martino MD LAB - CHEMISTRY JEFFREY [place] [facility] [address] [place] [address] * CBC WITH DIFFERENTIAL (07/06/2022 10:32 AM SOLID PROPELLANT PROCESSOR) White Blood Cell Count 4.6 3.8 - 10.8 Thousand/u L [facility] RBC 4.55 3.80 - 5.10 Million/uL [facility] Hemoglobin 14.2 11.7 - 15.5 g/dL [facility] Hematocrit 41.8 35.0 - 45.0 % [facility] MCV 91.9 80.0 - 100.0 fL [facility] MCH 31.2 27.0 - 33.0 pg [facility] MCHC 34.0 32.0 - 36.0 g/dL [facility] RDW 12.1 11.0 - 15.0 % [facility] Platelet Count 259 140 - 400 Thousand/u L [facility] MPV 10.2 7.5 - 12.5 fL [facility] Neutrophil Absolute 2613 1500 - 7800 cells/uL [facility] Lymphocytes Absolute 1440 850 - 3900 cells/uL [facility] Absolute Monocytes 368 200 - 950 cells/uL [facility] Eosinophils Absolute 120 15 - 500 cells/uL [facility] Basophils Absolute 60 0 - 200 cells/uL [facility] Granulocytes % 56.8 % [facility] Lymphocytes % 31.3 % [facility] Monocytes % 8.0 % [facility] Eosinophils % 2.6 % [facility] Basophils % 1.3 % [facility] Comment: Test Performed at: [place] ??[phone] SKY GODINEZ DO,MPH Blood BLOOD SPECIMEN / Unknown 07/06/2022 10:32 AM SOLID PROPELLANT PROCESSOR 07/06/2022 10:37 AM SOLID PROPELLANT PROCESSOR Francisco Martino MD LAB - HEMATOLOGY ORD ERABLES Performing Organization Address City/[facility] Co de Phone Number [facility] [address] [place] [address] * HLA TYPING B27 (07/06/2022 10:32 AM SOLID PROPELLANT PROCESSOR) Pathologist [facility] HLA-B27 Antigen NEGATIVE NEGATIVE [facility] Comment: Test Performed at: [facility] [address] ??[phone] CARLOS COLON MD Blood BLOOD SPECIMEN / Unknown 07/06/2022 10:32 AM SOLID PROPELLANT PROCESSOR 07/06/2022 10:37 AM SOLID PROPELLANT PROCESSOR Francisco Martino MD LAB - CHEMISTRY JEFFREY [place]ORD Performing Organization Address City/[facility] Co de Phone Number [facility] [address] [place] [address] * RHEUMATOID FACTOR BLOOD QUANTITATIVE (07/06/2022 10:32 AM SOLID PROPELLANT PROCESSOR) Pathologist [facility] Rheumatoid Factor <14 <14 IU/mL [facility] Comment: Test Performed at: [employer] [place], [place] ??[phone] SKY GODINEZ DO,MPH Blood BLOOD SPECIMEN / Unknown 07/06/2022 10:32 AM SOLID PROPELLANT PROCESSOR 07/06/2022 10:37 AM SOLID PROPELLANT PROCESSOR Francisco Martino MD LAB - CHEMISTRY JEFFREY [place]ORD Performing Organization Address [facility] de Phone Number [address] [address] * CYCLIC CITRULLINATED PEPTIDE(CCP) AB IGG (07/06/2022 10:32 AM SOLID PROPELLANT PROCESSOR) Pathologist [facility] Cyclic Citrullinated Peptide Antibody IgG <16 UNITS [facility] Comment: Reference Range Negative: ?<20 Weak Positive: ? 20-39 Moderate Positive: ?? 40-59 Strong Positive: ? >59 Test Performed at: Near Page [facility] [address] [place], [place] ??[phone] SKY GODINEZ DO,MPH Blood BLOOD SPECIMEN / Unknown 07/06/2022 10:32 AM SOLID PROPELLANT PROCESSOR 07/06/2022 10:37 AM SOLID PROPELLANT PROCESSOR Francisco Martino MD LAB - CHEMISTRY JEFFREY [place]ORD Performing Organization Address 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 Right wrist: No acute fracture, dislocation or significant arthritis. Left hand: Mild osteoarthritis of the second through fourth distal interphalangeal joints. Left wrist: No acute fracture, dislocation or significant arthritis. Sacroiliac joints: No acute fracture, dislocation or significant arthritis. Report dictated by Ad Real MD (vice president financial). Alvarez Romano MD have personally reviewed and interpreted this examination/study. > Interpreting Provider: Alvarez Lockhart MD on 07/06/2022 10:38 AM Narrative 07/06/2022 10:38 AM SOLID PROPELLANT PROCESSOR PROCEDURE: ??XR HAND RIGHT 3VW OR MORE, XR SI JOINTS 3VW OR MORE, XR WRIST RIGHT 3VW OR MORE, XR WRIST LEFT 3VW OR MORE, XR HAND LEFT 3VW OR MORE, DATE/TIME OF EXAM: ??07/06/2022 9:42 AM, LOCATION ??[facility] INDICATION: M25.50: Polyarthralgia COMPARISON: None. FINDINGS: [...] DATE/TIME OF EXAM: 07/06/2022 9:42 AM, LOCATION [facility] INDICATION: M25.50: Polyarthralgia COMPARISON: None. FINDINGS: [...] significantarthritis. Report dictated by Ad Real MD (vice president financial). I, Alvarez Lockhart MD have personally reviewed and interpreted this examination/study. 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 Right wrist: No acute fracture, dislocation or significant arthritis. Left hand: Mild osteoarthritis of the second through fourth distal interphalangeal joints. Left wrist: No acute fracture, dislocation or significant arthritis. Sacroiliac joints: No acute fracture, dislocation or significant arthritis. Report dictated by Ad Real MD (vice president financial). I, Alvarez Lockhart MD have personally reviewed and interpreted this examination/study. > Interpreting Provider: Alvarez Lockhart MD on 07/06/2022 10:38 AM Narrative 07/06/2022 10:38 AM SOLID PROPELLANT PROCESSOR PROCEDURE: ??XR HAND RIGHT 3VW OR MORE, XR SI JOINTS 3VW OR MORE, XR WRIST RIGHT 3VW OR MORE, XR WRIST LEFT 3VW OR MORE, XR HAND LEFT 3VW OR MORE, DATE/TIME OF EXAM: ??07/06/2022 9:42 AM, LOCATION ??[facility] INDICATION: M25.50: Polyarthralgia COMPARISON: None. FINDINGS: [...] DATE/TIME OF EXAM: 07/06/2022 9:42 AM, LOCATION [facility] INDICATION: M25.50: Polyarthralgia COMPARISON: None. FINDINGS: [...] significantarthritis. Report dictated by Ad Real MD (vice president financial). Alvarez Romano MD have personally reviewed and interpreted this examination/study. 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 Right wrist: No acute fracture, dislocation or significant arthritis. Left hand: Mild osteoarthritis of the second through fourth distal interphalangeal joints. Left wrist: No acute fracture, dislocation or significant arthritis. Sacroiliac joints: No acute fracture, dislocation or significant arthritis. Report dictated by Ad Real MD (vice president financial). Alvarez Romano MD have personally reviewed and interpreted this examination/study. > Interpreting Provider: Alvarez Lockhart MD on 07/06/2022 10:38 AM Narrative 07/06/2022 10:38 AM SOLID PROPELLANT PROCESSOR PROCEDURE: ??XR HAND RIGHT 3VW OR MORE, XR SI JOINTS 3VW OR MORE, XR WRIST RIGHT 3VW OR MORE, XR WRIST LEFT 3VW OR MORE, XR HAND LEFT 3VW OR MORE, DATE/TIME OF EXAM: ??07/06/2022 9:42 AM, LOCATION ??[facility] INDICATION: M25.50: Polyarthralgia COMPARISON: None. FINDINGS: [...] DATE/TIME OF EXAM: 07/06/2022 9:42 AM, LOCATION [facility] INDICATION: M25.50: Polyarthralgia COMPARISON: None. FINDINGS: [...] significantarthritis. Report dictated by Ad Real MD (vice president financial). Alvarez Romano MD have personally reviewed and interpreted this examination/study. 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 Right wrist: No acute fracture, dislocation or significant arthritis. Left hand: Mild osteoarthritis of the second through fourth distal interphalangeal joints. Left wrist: No acute fracture, dislocation or significant arthritis. Sacroiliac joints: No acute fracture, dislocation or significant arthritis. Report dictated by Ad Real MD (vice president financial). Alvarez Romano MD have personally reviewed and interpreted this examination/study. > Interpreting Provider: Alvarez Lockhart MD on 07/06/2022 10:38 AM Narrative 07/06/2022 10:38 AM SOLID PROPELLANT PROCESSOR PROCEDURE: ??XR HAND RIGHT 3VW OR MORE, XR SI JOINTS 3VW OR MORE, XR WRIST RIGHT 3VW OR MORE, XR WRIST LEFT 3VW OR MORE, XR HAND LEFT 3VW OR MORE, DATE/TIME OF EXAM: ??07/06/2022 9:42 AM, LOCATION ??[facility] INDICATION: M25.50: Polyarthralgia COMPARISON: None. FINDINGS: [...] DATE/TIME OF EXAM: 07/06/2022 9:42 AM, LOCATION [facility] INDICATION: M25.50: Polyarthralgia COMPARISON: None. FINDINGS: [...] significantarthritis. Report dictated by Ad Real MD (vice president financial). I, Alvarez Lockhart MD have personally reviewed and interpreted this examination/study. 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 Right wrist: No acute fracture, dislocation or significant arthritis. Left hand: Mild osteoarthritis of the second through fourth distal interphalangeal joints. Left wrist: No acute fracture, dislocation or significant arthritis. Sacroiliac joints: No acute fracture, dislocation or significant arthritis. Report dictated by Ad Real MD (vice president financial). I, Alvarez Lockhart MD have personally reviewed and interpreted this examination/study. > Interpreting Provider: Alvarez Lockhart MD on 07/06/2022 10:38 AM Narrative 07/06/2022 10:38 AM SOLID PROPELLANT PROCESSOR PROCEDURE: ??XR HAND RIGHT 3VW OR MORE, XR SI JOINTS 3VW OR MORE, XR WRIST RIGHT 3VW OR MORE, XR WRIST LEFT 3VW OR MORE, XR HAND LEFT 3VW OR MORE, DATE/TIME OF EXAM: ??07/06/2022 9:42 AM, LOCATION ??[facility] INDICATION: M25.50: Polyarthralgia COMPARISON: None. FINDINGS: [...] DATE/TIME OF EXAM: 07/06/2022 9:42 AM, LOCATION [facility] INDICATION: M25.50: Polyarthralgia COMPARISON: None. FINDINGS: [...] significantarthritis. Report dictated by Ad Real MD (vice president financial). I, Alvarez Lockhart MD have personally reviewed and interpreted this examination/study. > Interpreting Provider: Alvarez Lockhart MD on 0:38 AM Francisco Martino MD DIAGNOSTIC IMAGING O RDERABLES documented in this encounter Visit Diagnoses Diagnosis Polyarthralgia- Primary Pain in joint, multiple sites Need for influenza vaccination Need for prophylactic vaccination and inoculation against influenza Achilles tendinosis of left lower extremity Chronic midline low back pain without sciatica Polyarthralgia Pain in joint, multiple sites Achilles tendinosis of left lower extremity documented in this encounter Care Teams Insurance Sales Manager Relationship Specialty Start Date End Date Siva Burgos MD [address] [place] [address] PCP - General Internal Medicine 07/06/22 documented as of this encounter
--- OUTSIDE RECORDS SUMMARY | 2024-06-23 18:20 | XMS_ITS | Encounter Summary ---
Author Organization [facility] Address [address] [place] [address] Care Team Providers Care Admitting Officer Name Role Phone Siva Burgos MD Primary Care Provider Reason for Visit * Reason Comments Follow-up 3 MONTH F/U Encounter Details Date Type Department Care Team (Latest Contact Info) Description 02/08/2023 1:40 PM CDT Office Visit [facility] - Rheumatology [address] [place] [address], [facility] [place] [address] Francisco Martino MD [address] [place] [address] [place] [address] Scleroderma (HCC) (Primary Dx); Raynaud's disease without gangrene; Encounter for monitoring of hydroxychloroquine therapy Social History Tobacco Use Types Packs/Day Years [...] Sign Reading Time Taken Comments Blood Pressure 118/62 02/08/2023 1:40 PM CDT Pulse 76 02/08/2023 1:40 PM CDT Temperature 36.6 ??C (97.8 ??F) 02/08/2023 1:40 PM CD T Respiratory Rate - - Oxygen Saturation 97% 02/08/2023 1:40 PM CDT Inhaled Oxygen Concentration - - Weight 57.8 kg (127 lb 6.4 oz) 02/08/2023 1:40 P M CDT Height 160 cm (5' 2.99 ) 02/08/2023 1:40 PM CDT Body Mass Index 22.57 02/08/2023 1:40 PM CDT documented in this encounter Patient Instructions * Patient Instructions* Francisco Martino MD - 02/08/2023 1:57 PM CDT OCT documented in this encounter Progress Notes * Francisco Martino MD - 02/08/2023 1:38 PM CDT Images from the original note were not included. Rheumatology Clinic Note Patient: Luciana Yost ( 1975, ) Encounter Date: 02/08/2023 Chief Concern: + LIAM, Polyarthralagia Assessment & Recommendations Luciana Yost is a 47 year old female seen for follow up visit for + LIAM and polyarthralgia. #. 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 Centromere abs>8. Raynaud's. possible early inflammatory arthritisof small hand joints. no Sclerodactyly on exam. will start on HCQ for inflammatory arthritis. start 300 mg daily. Echo/PFTs 10/08 were unremarkable. #. Encounter to monitor for hydroxychloroquine toxicity Patient requires annual OCT to monitor for hydroxychloroquine toxicity. Discussed in detail the long-term complications of hydroxychloroquine and advised the patient to get baseline OCT exam. #. Raynaud's: Discussed nonpharmacologic measures of Raynaud's symptoms. Reviewed importance of avoiding cold exposure and use of gloves and warm clothing. #. Follow-up: In 3 months or sooner [...] results, and imaging results dating back to 10/08 -Pt is on drug therapy requiring intensive monitoring for toxicity. Francisco Martino MD Division of Rheumatology Department of Internal Medicine [facility] Encounter Diagnoses, Orders, and Future Appointments: 1. Scleroderma (CMS/HCC) 2. Raynaud's disease without gangrene 3. Encounter for monitoring of hydroxychloroquine therapy Orders Placed This Encounter ??? SCLEROSIS 12 ANTIBODY PNL ??? RNA POLYMERASE III ANTIBODY IGG ??? hydroxychloroquine (Plaquenil) 200 MG tablet Future Appointments Date Time Provider Department Center 06/14/2023 2:00 PM Francisco Martino MD [address] Subjective History of Present Illness: has pain in her fingers, difficulty turning door knobs.Hands feel stiff in the morning(20 mins) andassociated sorenss. raynaud's symptoms stable. no GERD symptoms. Disease Hx from consult note: Jun 2021 noticing pain in her left ankle mostly after period of activity. feels stiff in morning. did PT with little improvement in symptoms. symptoms are persistent and occur daily. she reported pain in her right DIps since 2019 and diffuse pain in right index finger. 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 no h/o psoriasis of skin rashes. No [...] HPI. Home Medications: Current Outpatient Medications: ??? hydroxychloroquine (Plaquenil) 200 MG tablet, Take 1 (one) tablet by mouth once daily, Disp: 90tablet, Rfl: 1 ??? meloxicam (Mobic) 15 MG tablet, Take 1 (one) tablet by mouth once daily, Disp: 90 tablet, Rfl: 1 Adverse Drugs Reactions: No Known Allergies Past Medical History: Past Medical History: Diagnosis Date ??? Gallstones Past Surgical History: Past Surgical History: Procedure Laterality Date ??? CARPAL TUNNEL SURGERY Immunization History: Immunization History Administered Date(s) Administered ??? [employer] primary monovalent 12+ yr 0.3mL Purple cap [...] General (Internal Medicine) Objective Physical Exam BP 118/62 (BP SITE: RIGHT ARM, BP POSITION: SITTING, BP CUFF SIZE: 11) Pulse 76 Temp 97.8 ??F (36.6 ??C) (Skin) Ht 1.6 m (5' 2.99 ) Wt 57.8 kg (127 lb 6.4 oz) LMP (Exact Date) SpO2 97% BMI 22.57 kg/m?? GENERAL: not in acute distress HEENT/NECK: [...] Common Labs CBC Recent Labs Component Name 12/29/22204007/06/22 1032 WBC 10.0 4.6 HGB 12.7 14.2 MCV 91.6 91.9 PLTCOUNT 222 259 Lab Results Component Value Date/Time NEUTABS 7.28 (H) 12/29/2022 08:41 PM GRANIMMABS 0.03 12/29/2022 08:41 PM Metabolic Profile Recent Labs Component Name 12/29/22204007/23/22 0925 07/06/22 1032 POTASSIUM 2.7* - 4.2 CO2 20* - 26 BUN 12 - 15 CREATININE 1.01 - 0.69 GLUCOSE 107* - 80 CALCIUM 9.5 - 9.2 ANIONGAP 13 - - EGFR 69* >90 - AST 26 - 24 ALT 18 - 18 ALKPHOS 108 - 90 No results found for: MG, PHOS, DBIL UA & UPC Lab Results Component Value Date/Time SPECGRAVUA 1.015 12/29/2022 08:41 PM PHUA 8.0 12/29/2022 08:41 PM PROTEINUA Negative 12/29/2022 08:41 PM BLOODUA Negative 12/29/2022 08:41 PM LEUKOCYTEUA Negative 12/29/2022 08:41 PM NITRITEUA Negative 12/29/2022 08:41 PM GLUCOSEUA Negative 12/29/2022 08:41 PM KETONEUA 1+ (Abnormal) 12/29/2022 08:41 PM BILIRUBINUA Negative 12/29/2022 08:41 PM UROBILINUA Negative 12/29/2022 08:41 PM REFLXSTAT Culture not indicated 12/29/2022 08:41 PM URMIC Urine microscopy not indicated 12/29/2022 08:41 PM No results found for: PROTEINTO, CREATININEUR, [id number] No results for input(s): HCGURINE, HCGQUANT in the last 15088 hours. Latent Infections No results found for: HEPBSAG, HBVSAB, HEPBSAB, HEPBCAB, HEPCAB No results found for: QUANTIFER, QNTTBGOLD, QNTPLUSTB1, QNTPLUSTB2, QNTMITOGEN, QUANTIFERO, QUANTIFECI, QUANTIF, QUANNIL, QUAMIT, QFTTBAGN, TPYQFVEGW63, AFBSMR Immunology Labs Inflammatory Markers Recent Labs Component Name 07/06/22 1032 SEDRATE 2 CRP 0.6 RA-related Auto-Ab's No results found for: RF, RA, RAQNT, CCPIGG, CCPIGGIGA LIAM-related No results found for: ANATITER, ANAPATTERN, ANTINUCLE, ANAIGG, DSDNAABIU, ANTIDNADSABQ, DSDNAIGGAB,SMITHANTI, ANTICHRO, CHROMATINAB, SSAANTIBO, SSBANTIBO, SMRNPANTI, SMITHRNPAB, SCL70, ANTICENTROB, WD5KCJPM, GLLCT664VM, NSJTQCU2TI, HISTONEIGG No results for input(s): C3, C4 in the last 06694 hours. APLS-related Auto-Ab's No results found for: F8BLTUMYQE, G9UGPILLUY, F6QCHJORAB, DIXM1PMK, DWVA7NUS, CRDLPNIGM, CRDLPNIGG,CRDLPNIGA, DILUTEPT, DPTCFMRATIO, TT, PTTLA, DRVVTBASE, LABINTE Myopathy Lab Results Component Value Date/Time CK 87 12/29/2022 08:41 PM Vasculitis and ANCAs No results found for: NEUTCYTOAB, ANTIPROT3, ANTIMPO, O6KNJTV Genetics No results found for: HLAB27 Gammopathy/Paraproteinemia No results found for: KAPPAFREE, LAMBDAFREE, KLFREERATIO, IGM, IGG, IGA No results found for: SPEINTERP, SERUMPEALB, SERUMPEA1, SERUMPEA2, SERUMPEBE, SERUMPEGA, PROT, LABIMMURE, CRYOGLOBQUAL Other Labs Endocrine & Metabolic No results for input(s): URICACID, HGBA1C, TSH, T4FREE in the last 50736 hours. No results found for: GJEZ02BT Heme No results found for: RETICCTPCT, RETICULOCYTE, IRON, FERRITIN, TRANSFERRIN, TRANSFERRSAT, TIBC, FIBRINOGEN, DDIMER, VITB12, FOLATE, HAPTOGLOBIN, LDHTOTAL No results for input(s): PT, INR, PTT in the last 48057 hours. Renal Lab Results Component Value Date/Time MAGNESIUM 1.7 12/29/2022 08:41 PM Cardiac & Lipids No results for input(s): TROPONINI, CKMB, BNP in the last 74957 hours. No results for input(s): CHOL, TRIG, HDL, LDLCALC, LDLDIRECT in the last 57247 hours. Respiratory No results found for: SARSCOV2, RINFLUANAA, RINFLUBNAA, INFLUARAPID, INFLUBRAPID, INFLUCNTRL, STREPARAPID, STREPAQC Hepatobiliary & GI No results found for: GGT, LIPASE, D4NMAXEIXLAR, CMVPCR, CMVSOURCE, GDHANTIGEN, CDIFFTOXINAB, CDIFFINTRP, GLIADINIGG, GLIADINIGA, ENDOMYSIA, TTRANIGA, TTRANIGG Drug Screen No results found for: THCUR, PCPUR, COCAINEUR, METHAMPHETUR, OPIATESUR, AMPHETUR, BENZODIAZUR, TCAUR, METHADONEUR, BARBITURATUR, OXYCODONEUR, PROPOXYUR Synovial Fluid No results found for: COLORFL, CLARITYFLUID, BFVOLUME, VISCOSITY, WBCFLUID, RBCFL, CRYSTALEXAM, DIFF, BFBAND, BFSEGS, BFLYMPH, BFMONO, BFEOS, BFMACRO, PATHDIFFRVW Neuro/CSF No results found for: GLUCSF, PROTEINCSF, TMB7LTABIX, HYN8EGWKQO, FLHR5JWP, COCCIDIGG, NPV9OGX, CRYPTOAGCSF, ENTEROVIRPCR, OLIGOBAND, OLIGOBANDNUM, IGG, FKE7MDM, ALBUMINMS, NYLOCJK9DDX, ALBUMININDEX,IGGINDEX, IGGALBRATIO, SYNTHESRTE, OLIGOCINTRP, TOXOPLASIGG, CYSTICERO Body Fluid No results found for: LABLD, GROSSDESCRIP, MICROPDESCR STIs (HIV, GC, Trich, Syphilis) No results found for: HIV12, CCR5WRLAJQ, HMW7FMN64OXA, CHLAMDIA, CHLTRNAA, GC, NGONORRNAA, TRICVAGAP, TRICHVAGBY, TPALLIDUM Cultures & Other Micro No results found for: URINECULT, BLOODCULT, BDERMAGUR, BDERMINTERP For assessment and recommendations, please see above. This note was generated using the Mobile[employer] speech recognition system. Grammatical errors, random wordinsertions, [...] directlywith the author for clarification. Thank you. documented in this encounter Plan of Treatment Not on file documented as of this encounter Procedures Procedure Name Priority Date/Time Associated Diagnosis Comments SCLEROSIS 12 ANTIBODY PNL Routine 02/12/2023 7:36 AM CDT Scleroderma (HCC) RNA POLYMERASE III ANTIBODY IGG Routine 02/12/2023 7:36 AM CDT Scleroderma (HCC) documented in this encounter Results * RNA POLYMERASE III ANTIBODY IGG (02/12/2023 7:36 AM CDT) RNA Polymerase 3 Antibody <20 <20 Units [facility] Comment: REPORT COMMENT: FASTING:YES Test Performed at: [facility] [address] [place], [place] ??[phone] ADA DURAND MD,PHD,TIMMY Blood BLOOD SPECIMEN / Unknown 02/12/2023 7:36 AM CDT 02/12/2023 7:37 AM CDT Francisco Martino MD LAB - SEROLOGY ORDER PAMELA [facility] [address] [place] [address] * (ABNORMAL) SCLEROSIS 12 ANTIBODY PNL (02/12/2023 [...] 75 <11 <11 SI [facility] Comment: The [place] [employer] (ACR) considers anti-Scl-70 (also [...] patients and anti-RP155 antibodies in about 8%. Ywqo-[id number] antibodies are associated with SSc and inflammatory myopathy overlap syndromes. Three major components of U1-snRNP are tested: U1-snRNP PAYMENT POSTER A, U1-snRNP PAYMENT POSTER C, U1-snRNP [id number]. The presence of U1-snRNP antibodies occur in [...] Fibrillarin antibodies are found more frequently in -[place] patients and when seen in this population, [...] is directed to one of two proteins: PM/Wjt640 and/or PM/Scl75. More information can be found at [email or web address]/[email or web address] ?[email or web address] This test was developed and its analytical performance characteristics have been determined by [facility]. It has not been cleared or approved by FDA. This assay has been validated pursuant to the CLIA regulations and is used for clinical purposes. Test Performed at: [facility] [place] [address] [place], [place] ??[phone] ADA DURAND MD,PHD,TIMMY Blood BLOOD SPECIMEN / Unknown 02/12/2023 7:36 AM CDT 02/12/2023 7:37 AM CDT Francisco Martino MD LAB - SEROLOGY ORDER PAMELA Performing Organization Address City/State/[facility] Co de Phone Number [facility] [address] [place] [address] documented in this encounter Visit Diagnoses Diagnosis Scleroderma (HCC)- Primary Systemic sclerosis Raynaud's disease without gangrene Encounter for monitoring of hydroxychloroquine therapy documented in this encounter Care Teams Admitting Officer Relationship Specialty Start Date End Date Siva Burgos MD [address] [place] [address] PCP - General Internal Medicine 07/06/22 documented as of this encounter
--- OUTSIDE RECORDS SUMMARY | 2024-06-23 18:20 | XMS_ITS | Encounter Summary ---
Author Organization [facility] Address [address] [place] [address] Care Team Providers Care Business Development Specialist Name Role Phone Siva Burgos MD Primary Care Provider Reason for Visit * Auth/Cert (Routine) Specialty Diagnoses / Procedures Referred By Travis elizabeth Referred To Contact Diagnoses Diagnosis unknown Diagnosis unknown [R69] Procedures WI REPAIR INTERCARP/CARP-METACARP JT WI REPAIR INTERCARP/CARP-METACARP JT WI TRANSPLANT/GRAFT HAND TENDON ARTHROPLASTY / INTERPOSITION CARPOMETACARPAL (CMC) Referral ID Status Reason Start Date Expiration Date Visits Re quested Visits Authorized [id number] 1 1 Encounter Details Date Type Department Care Team (Late st Contact Info) Description 03/26/2024 11:53 AM CDT - 03/26/2024 2:20 PM CDT Surgery [facility] [address] [place] [address] Hipolito Cat MD [facility] [id number] FIRST CARPOMETACARPAL JOINT ARTHROPLASTY WITH LIGAMENT RECONSTRUCTION USING FREE TENDON GRAFT Surgery Details Date/Time Status Location OR Service Patient Class Case Class Case Type Trauma Case? 03/26/2024 11:53 AM Posted [facility] OR OR 06 Orthopedics Surgery Day Care Elective > 5 days Panel 1 Procedure LRB Anes Op Region Wound Class Comments FIRST CARPOMETACARPAL JOINT ARTHROPLASTY WITH LIGAMENT RECONSTRUCTION USING FREE TENDON GRAFT Right MAC w/block Clean Surgeon Surgeon Role Service Panel Hipolito Cat MD Primary Orthopedics 1 Special Needs NEEDS MINI C-ARM, MCGLAMRY RETRACTORS, ARTHREX--REP. (MEKA # [phone]) NOTIFIED PER OFFICE ([facility])--03/14 KW / FREE TENDON GRAFT IS FROM THE PATIENT PER SURGEON PER OFFICE ([facility])--03/14 KW documented in this encounter Social History Tobacco [...] Sign Reading Time Taken Comments Blood Pressure 115/75 03/26/2024 10:41 AM CDT Pulse 62 03/26/2024 10:41 AM CDT Temperature 36.6 ??C (97.9 ??F) 03/26/2024 10:41 AM C DT Respiratory Rate 18 03/26/2024 10:41 AM CDT Oxygen Saturation 98% 03/26/2024 10:41 AM CDT Inhaled Oxygen Concentration - - Weight 58.5 kg (129 lb) 03/26/2024 10:36 AM CDT Height 158.8 cm (5' 2.5 ) 03/26/2024 10:36 AM CD T Body Mass Index 23.22 03/26/2024 10:36 AM CDT documented in this encounter Discharge Summaries * Wero Haynes MD - 03/26/2024 2:45 PM CDT Images from the original note were not included. Orthopaedic Surgery Discharge Summary Name: Luciana Yost : 1975 Admit Date: 03/26/2024 Discharge Date: 03/26/2024 Admitting Physician: Hipolito Cat MD Attending Physician: Hipolito Cat MD PCP: Siva Burgos MD Admission Diagnosis: Active Problems: * No active hospital problems. * Discharge Diagnoses: Active Problems: * No active hospital problems. * Past Medical History: Past Medical History: Diagnosis Date Gallstones Diagnostic Studies: None Procedures: FIRST CARPOMETACARPAL JOINT ARTHROPLASTY WITH LIGAMENT RECONSTRUCTION USING FREE TENDONGRAFT (Right) Consults: None Hospital Course: The patient underwent the above mentioned procedure, which was without complication. Please see the details in the operative report for more information. Post-operatively, the patient was monitored in the PACU and transferred to the floor. After tolerating a PO diet and achieving adequate pain control, the patient was discharged. Patient will follow up with Dr. Cat in 2 weeks. Condition at discharge: good Disposition: Home Discharge Medications: Current Discharge Medication List START taking these medications Instructions Authorizing Provider docusate sodium 100 MG capsule Commonly known as: Colace Take 1 (one) capsule by mouth 2 times daily as needed for Constipation Reasons: Constipation Wero A [place] HYDROcodone-acetaminophen 5-325 MG tablet Commonly known as: [place] Quantity Dispensed: 12 tablet Take 1 (one) tablet by mouth every 6 hours as needed for Pain Reasons: Pain Wero A [place] ibuprofen 400 MG tablet Commonly known as: Motrin Take 1 (one) tablet by mouth every 6 hours as needed for Pain Reasons: Fever, Pain Wero A [place] sennosides 8.6 MG tablet Commonly known as: Senna Lax Take 1 (one) tablet by mouth 2 times daily as needed for Constipation Take while using narcotic pain medications, then take as needed for constipation Wero A [place] CONTINUE taking these medications which have CHANGED Instructions Authorizing Provider * acetaminophen 325 MG tablet What changed: Another medication with the same name was added. Make sure you understand how and when to take each. Commonly known as: Tylenol Take 1 (one) tablet by mouth every 6 hours as needed * acetaminophen 500 MG tablet What changed: You were already taking a medication with the same name, and this prescription was added. Make sure you understand how and when to take each. Commonly known as: TYLENOL Take 2 (two) tablets by mouth every 8 hours as needed for Fever or Pain Maximum allowable Acetaminophen amount = 4 Grams (4000 mg) / 24 hours. Wero Haynes * This list has 2 medication(s) that are the same as other medications prescribed for you. Read thedirections carefully, and ask your doctor or other care provider to review them with you. CONTINUE taking these medications which have NOT CHANGED Instructions Authorizing Provider cyanocobalamin 100 MCG tablet Commonly known as: Vitamin B-12 Take 1 (one) tablet by mouth once daily fluticasone propionate 50 MCG/ACT nasal spray Commonly known as: Flonase 2 (two) sprays once daily as needed hydroxychloroquine 200 MG tablet Commonly known as: Plaquenil Quantity Dispensed: 90 tablet TAKE 1 TABLET BY MOUTH EVERY DAY Francisco Martino MD magnesium 250 MG tablet Take 1 (one) tablet by mouth once daily meclizine 25 MG tablet Commonly known as: Antivert Take 1 (one) tablet by mouth 3 times daily as needed meloxicam 15 MG tablet Commonly known as: Mobic Quantity Dispensed: 90 tablet Take 1 (one) tablet by mouth once daily Francisco Martino MD Patient Instructions: No discharge procedures on file. Discharge Instructions POST CMC ARTHROPLASTY SURGERY INSTRUCTIONS You need to keep your splint clean and dry. Use a taped bag, an umbrella bag, or a cast cover (from you local pharmacy or [email or web address]) to avoid getting the splint wet when you shower. If you received a shoulder block for anaesthesia, your whole extremity will be numb for 6-24 hours. When the feeling and movement are back, it will feel weird and you will experience the surgical wound pain (pain at the wrist). Keep the arm sling until you have total control over your extremity to avoid injuries. After that, you do not need the arm sling. Finger and wrist movement will make it feel better. Keyboard typing is helpful. Your follow up appointment has already been made. Upon follow up, I will remove the dressing and the sutures unless the wound has not fully healed. Please contact our clinic call center at if you need to schedule or change a clinic appointment. For medical emergencies please call [phone]. Please contact Yolis Ibarra RN: [phone] or through [employer] if you have any further questions or concerns. Hipolito Cat MD, [facility] Hand, Shoulder and Elbow Finance AssociateHairspring Setter of Orthopaedic Surgery [facility] Orthopedics - [facility] - [address] For Appointments: [facility]-[address], [address] [facility] For Appointments: For all clinical questions: Narcotic Medication Patient Information You are being discharged/sent home with a prescription(s) for narcotic pain medicine (examples: Oxycodone, Hydrocodone, Roxicodone, Percocet, Atlanta). Our goal is to control your pain, however all medicines may have side effects. Additionally it is important to remember that the goal of pain medication is not to take away the pain completely but rather combat it enough to make daily living manageable. Please be aware of the following instructions: - You should not drive or operate any motorized vehicle or heavy or dangerous machinery until you have been able to stop taking your pain medicine for at least 48 (forty eight) hours. - You should avoid making any serious or legal decisions while you are taking any medicine for pain. - Take your pain medicine as prescribed by your physician, per the label on your medicine container. - You may need an over the counter laxative or stool softener while taking your pain medicine (pain medicines can cause constipation). - Do not consume alcohol while taking pain medicine. - Do not use recreational drugs while taking pain medicine. - Over the first week you are discharged you should be gradually weaning off narcotics and switch to only taking over the counter Tylenol. - Many pain medicines (such as Atlanta or Percocet) also contain Tylenol/Acetaminophen (this is the 325 component of the 5-325 or 10-325 which is listed on the medicine container). Do not consume more than the daily dose of Tylenol/Acetaminophen (3 grams or 3,000 miligrams) combined between regular Tylenol and your pain medication. - For your comfort and safety, we need to see you in the office to write additional prescriptions for pain medicine. No pain medicine will be renewed over the phone. Bring all medicine bottles to office visits. documented in this encounter Discharge Instructions * Discharge Instructions* Wero Haynes MD - 03/25/2024 5:03 PM CDT Images from the original note were not included. POST CMC ARTHROPLASTY SURGERY INSTRUCTIONS You need to keep your splint clean and dry. Use a taped bag, an umbrella bag, or a cast cover (from you local pharmacy or [employer]) to avoid getting the splint wet when you shower. If you received a shoulder block for anaesthesia, your whole extremity will be numb for 6-24 hours. When the feeling and movement are back, it will feel weird and you will experience the surgical wound pain (pain at the wrist). Keep the arm sling until you have total control over your extremity to avoid injuries. After that, you do not need the arm sling. Finger and wrist movement will make it feel better. Keyboard typing is helpful. Your follow up appointment has already been made. Upon follow up, I will remove the dressing and the sutures unless the wound has not fully healed. Please contact our clinic call center at if you need to schedule or change a clinic appointment. For medical emergencies please call [phone]. Please contact Yolis Ibarra RN: [phone] or through [employer] if you have any further questions or concerns. Hipolito Cat MD, [facility] Hand, Shoulder and Elbow Finance AssociateHairspring Setter of Orthopaedic Surgery [facility] Orthopedics - [facility] - [address] [place] [address] For Appointments: [facility]-[address], [address] [facility] For Appointments: For all clinical questions: documented in this encounter Medications at Time of Discharge [...] once daily as needed 04/26/2023 HYDROcodone-acetamino phen ([place]) 5-325 MG tabletIndications:Charly n Take 1 (one) [...] constipation 03/26/2024 documented as of this encounter H&P Notes * Hipolito Cat MD - 03/26/2024 10:38 AM CDT Orthopaedic Hand, Shoulder & Elbow Surgery History and Physical Luciana Yost 48 year old female Chief Complaint: Presenting for surgery for right first CMC arthritis History of Present Illness Luciana Yost is a 48 year old female who presents for the above. She was last seen in clinic when surgery was discussed in detail. She denies any PO intake since midnight. She denies any fevers, chills, nausea, vomiting, chest pain, or shortness of breath. She would like to proceed today for the above. Past Medical History: Diagnosis Date Gallstones Past Surgical History: Procedure Laterality Date Appendectomy 07/2023 CARPAL TUNNEL SURGERY Family History Problem Relation Name Age of Onset Multiple Sclerosis Mother Social History Occupational History Not on file Tobacco Use Smoking status: Never Smokeless tobacco: Never Vaping Use Vaping Use: Never used Substance and Sexual Activity Alcohol use: Yes Comment: social Drug use: Never Sexual activity: Yes Medications Prior to Admission Medication Sig Dispense Refill acetaminophen (Tylenol) 325 MG tablet Take 1 (one) tablet by mouth every 6 hours as needed cyanocobalamin (Vitamin B-12) 100 MCG tablet Take 1 (one) tablet by mouth once daily fluticasone propionate (Flonase) 50 MCG/ACT nasal spray 2 (two) sprays once daily as needed hydroxychloroquine (Plaquenil) 200 MG tablet TAKE 1 TABLET BY MOUTH EVERY DAY 90 tablet 1 magnesium 250 MG tablet Take 1 (one) tablet by mouth once daily meclizine (Antivert) 25 MG tablet Take 1 (one) tablet by mouth 3 times daily as needed meloxicam (Mobic) 15 MG tablet Take 1 (one) tablet by mouth once daily 90 tablet 1 No Known Allergies Review of Systems A 10 point review of system was negative unless stated in HPI. Exam Vitals: 03/26/24 1036 Weight: 58.5 kg (129 lb) Height: 1.588 m (5' 2.5 ) General appearance: alert, cooperative, no distress Lungs: no increased work of breathing on room air, equal and symmetric chest rise Cardiavascular: no jugular venous distention, palpable distal pulses Lymphatic: no edema Right thumb: + Load and grind test + pain over palpation of CMCJ Data Recent Labs Component Name 12/29/22204007/06/22 1032 WBC 10.0 4.6 HGB 12.7 14.2 HCT 37.0 41.8 PLTCOUNT 222 259 Recent Labs Component Name 12/29/22204007/06/22 1032 SODIUM 143 142 POTASSIUM 2.7* 4.2 CHLORIDE 110* 107 CO2 20* 26 BUN 12 15 CREATININE 1.01 0.69 GLUCOSE 107* 80 CALCIUM 9.5 9.2 No results for input(s): INR , PTT in the last 46115 hours. Radiographs and EMG Studies Xray right hand demonstrates CMC arthritis Assessment and Plan Risks, benefits and alternatives discussed, questions answered. Luciana Yost is a 48 year old female with right thumb CMC arthritis - Plan to perform a Right first carpometacarpal joint arthroplasty, possible ligament reconstruction with free tendon graft. - NPO - Site marked - Consent obtained - Please page with any questions or concerns Hipolito Cat MD Orthopedic Surgery 03/26/2024 10:38 AM documented in this encounter OR Notes * Brief Op Note - Wero Haynes MD - 03/26/2024 1:05 PM CDT Brief Op Note Procedure: FIRST CARPOMETACARPAL JOINT ARTHROPLASTY WITH LIGAMENT RECONSTRUCTION USING FREE TENDON GRAFT Patient Name: Luciana Yost Date of Service: 03/26/2024 Pre-Op Diagnosis: Right CMC arthritis Post-Op Diagnosis: Same Surgeon(s) and Role: * Hipolito Cat MD - Primary Dowel Sander Operator(s): [place] Anesthesia Type: MAC Complications: none Findings: Right CMC arthritis EBL: minimal blood loss Urine Output : See anaesthesia IV Fluid Intake: see anaesthesia Drains: * No LDAs found * Specimen(s): * No specimens in log * Implant(s): Implant Name Type Inv. Item Serial No. Workforce Development Vice President Lot No. LRB No. Used Action Sys Intnl Fx Fiberlock Fiberlock Spns Sys Intnl Fx Fiberlock Fiberlock [employer]ns [employer] [id number] Right 1 Implanted Wero Haynes MD * Operative - Hipolito Cat MD - 03/26/2024 1:05 PM CDT Images from the original note were not included. [facility] Orthopaedic Hand, Shoulder and Elbow Surgery Operative Note PATIENT NAME: Luciana Yost DATE OF : 1975 SURGERY DATE: 03/26/2024 SURGEON: Surgeon(s) and Role: * Hipolito Cat MD - Primary Wero Haynes MD - Resident PREOPERATIVE DIAGNOSIS: Right first carpometacarpal joint arthritis POSTOPERATIVE DIAGNOSIS: same PROCEDURE PERFORMED: Right first carpometacarpal joint arthroplasty with ligament reconstruction using free tendon graft ANESTHESIA: MAC w/block PREOPERATIVE ANTIBIOTICS: Given IV prior to incision ESTIMATED BLOOD LOSS: 3 mL COMPLICATIONS: None. SPECIMENS: None. INDICATIONS FOR SURGERY: Luciana Yost is a 48 year old female who presented with advanced Right first CMC joint symptomatic arthritis, not cured by conservative management.The risks and benefits of the procedure were discussed with the patient, and these include the risk of infection, the risk of needing a redo surgery,the risk of nerve, vessels or tendon damage, the risk of collapse, the risk of neuroma formation, the risk stiffness. After understanding all the risks, the patient elected to proceed with the procedure. DESCRIPTION OF PROCEDURE: The surgical site was marked in the holding area and the patient was rolled into the operating room. The availability of all needed material and implants was confirmed. The patient was positioned in a supine position with an arm table on the side. After induction by anaesthesia, the right upper extremity was prepped and drapped in the usual sterile manner. A time out was performed for patient safety and surgical site identification. An arm tourniquet was inflated to 250 mmgh of mercury. A curvilinear shaped modified Almeida incision was made over the dorsal aspect of the 1st CMC joint. The soft tissues were dissected. The radial sensory nerve was identified and protected. The radial artery branch was identified and protected. Using a knife, the capsule was incised longitudinally. The 1st CMC joint was severely arthritic. Under fluoroscopy, the trapezium was identified. Then it was resected in pieces using a rongeur. The FCR tendon was identified in the wound and protected. Then the APLtendon was identified and a 5.5 cm free tendon graft segment was harvested to be used as an autograft for ligament reconstruction. Then using the Arthrex internal brace system, a soft anchor with a fiber tape was implanted in the radial base of the second metacarpal. Then the tape was augmented with the harvested free tendon graft using a whip stitch. Then a bicortical tunnel was made at the baseof the first metacarpal 4 mm away from the articular surface. The tape-graft construct was passed under the base of the first metacarpal and passed bicortically to the ulnar aspect of the base of thefirst metacarpal. Then one limb of the tapes was passed under the construct at the base of the 1st metacarpal and tied to the other limb. Then the knot was secured with 4-0 Fiber Wire. An adequate tension was maintained for optimal thumb mobility. Intraoperative fluoroscopy showed adequate positionof the first metacarpal. The tourniquet was released. Hemostasis was performed. The capsule was closed using 3-0 Vicryl sutures. The skin was closed using 4-0 Monocryl and 4-0 Nylon sutures. An appropriate dressing was applied followed by a thumb spica splint. The patient tolerated the procedure well and was taken to the PACU in good condition. Hipolito Cat MD, [facility] Hand, Shoulder and Elbow Finance AssociateHairspring Setter of Orthopaedic Surgery [facility] Orthopedics - [facility] - [address] [place] [address] For Appointments: [facility]-[address], [address] [facility] For Appointments: For all clinical questions: documented in this encounter Plan of Treatment Not on file documented as of this encounter Procedures Procedure Name Priority Date/Time Associated Diagnosis Comments IMAGING/RADIOLOGY /XRAY RESULTS ORDER 03/29/2024 1:55 AM CDT CARDIAC RHYTHM STRIP ORDER 03/29/2024 1:25 AM CDT XR HAND RIGHT 3VW OR MORE STAT 03/26/2024 3:26 PM CDT Pain FL VILMA SURGERY Routine 03/26/2024 2:50 PM CDT Pain WI REPAIR INTERCARP/CARP-ME TACARP JT 03/26/2024 12:30 PM CDT Diagnosis unknown Special Needs NEEDS MINI C-ARM, MCGLAMRY RETRACTORS, ARTHREX--REP. ([facility] # [phone]) NOTIFIED PER OFFICE ([facility])--03/14 KW / FREE TENDON GRAFT IS FROM THE PATIENT PER SURGEON PER OFFICE ([facility])--03/14 KW documented in this encounter Results * IMAGING RADIOLOGY XRAY RESULTS ORDER (03/29/2024 1:55 AM CDT) Anatomical Region Laterality Modality Other Narrative 03/29/2024 1:55 AM CDT Ordered by an unspecified provider. Scanned Document IMAGING * CARDIAC RHYTHM STRIP ORDER (03/29/2024 1:25 AM CDT) Narrative 03/29/2024 1:25 AM CDT Ordered by an unspecified provider. Scanned Document CARDIAC SERVICES ORD ERABLES * XR Hand Right 3Vw or More (03/26/2024 3:26 PM CDT) Anatomical Region Laterality Modality Wrist / Hand Radiographic Laura ging 03/26/2024 3:28 PM CDT Impressions 03/26/2024 3:29 PM CDT IMPRESSION: As above. > Interpreting Provider: Ron Nelson MD on 03/26/2024 3:29 PM Narrative 03/26/2024 3:29 PM CDT PROCEDURE: ??XR HAND RIGHT 3VW OR MORE DATE/TIME OF EXAM: ??03/26/2024 3:26 PM CLINICAL INFORMATION: None relevant/not provided if blank. Indication: R52: Pain, unspecified Additional History: COMPARISON: None. FINDINGS: Splint material obscures fine bone detail. The trapezium appears resected. Visible alignment is otherwise grossly maintained. Procedure Note Ron Nelson MD - 03/26/2024 PROCEDURE: XR HAND RIGHT 3VW OR MORE DATE/TIME OF EXAM: 03/26/2024 3:26 PM CLINICAL INFORMATION: None relevant/not provided if blank. Indication: R52: Pain, unspecified Additional History: COMPARISON: None. FINDINGS: Splint material obscures fine bone detail. The trapezium appearsresected. Visible alignment is otherwise grossly maintained. IMPRESSION: As above. > Interpreting Provider: Ron Nelson MD on 03/26/2024 3:29 PM Hipolito Cat MD DIAGNOSTIC IMAGING O RDERABLES * FL Vilma Surgery (03/26/2024 2:50 PM CDT) Narrative [facility] - 03/26/2024 3:05 PM CDT For details of this study, please see the providers note. Hipolito Cat MD FLUOROSCOPY ORDERABL ES [facility] [address] [place] [address] documented in this encounter Visit Diagnoses Diagnosis Pain- Primary Generalized pain Arthritis of carpometacarpal (CMC) joint of right thumb Diagnosis unknown Other unknown and unspecified cause of morbidity or mortality documented in this encounter Administered Medications Inactive Administered Medications - up to 3 most recent administrations Medication Order MAR Action Action Date Dose Rate Site 0.9% NaCl injection 1-10 mL 1-10 mL, Intracatheter, PRN, Other, peripheral line flush, Starting on Sun03/26/24 at 1021, Until Sun03/26/24 at 1732, Flush peripheral IV catheter with 1-10 mL of normal saline before and after medications and prn to clear blood from the line or to verify patency., Pre-op 0.9% NaCl injection 3 mL 3 mL, Intracatheter, EVERY 8 HOURS, First dose on Sun03/26/24 at 1400, Until Discontinued, Flush peripheral IV catheter with 3 mL of normal saline every 8 hours., Pre-op 0.9% NaCl irrigation solution PRN, Starting on Sun03/26/24 at 1320, Until Sun03/26/24 at 1436, Intra-op $ Given 03/26/2024 1:20 PM CDT 1,000 mL Operative Site acetaminophen (Tylenol) tablet 1,000 mg 1,000 mg, Oral, ONCE, 1 dose, On Sun03/26/24 at 1045, Patient preference for lesser PRN pain meds may be honored when the patient requests a less strong medication, a lower dose, or a less intrusive route of administration when the lesser drug, dose and route have been ordered for the patient. This patient request must be documented in the MAR. If both oral and IV options are ordered for the same pain severity, give oral first unless patient cannot tolerate oral intake, Pre-op $ Given 03/26/2024 10:47 AM CDT 1,000 mg diphenhydrAMINE (Benadryl) capsule 25 mg 25 mg, Oral, EVERY 6 HOURS PRN, Itching, Starting on Sun03/26/24 at 1534, Until Sun03/26/24 at 1732, Post-op diphenhydrAMINE (Benadryl) injection 25 mg 25 mg, Intravenous, ONCE PRN, Nausea/Vomiting, 1 dose, Starting on Sun03/26/24 at 1434, Until Sun03/26/24 at 1732, Third choice, use if first and second choice was ineffective., PACU fentaNYL (PF) (Sublimaze) injection 25 mcg 25 mcg, Intravenous, EVERY 10 MIN PRN, Mild Pain, 4 doses, Starting on Sun03/26/24 at 1434, Until Sun03/26/24 at 1732, Maximum total of 4 doses. If patient reaches max total dose, please consult anesthesiologist prior to further administration of pain meds. Hold pain meds if there are signs of hypoventilation. Patient preference for lesser PRN pain meds may be honored when the patient requests a less strong medication, a lower dose, or a less intrusive route of administration when the lesser drug, dose and route have been ordered for the patient. This patient request must be documented in the MAR. If both oral and IV options are ordered for the same pain severity, give oral first unless patient cannot tolerate oral intake, PACU fentaNYL (PF) (Sublimaze) injection 50 mcg 50 mcg, Intravenous, EVERY 10 MIN PRN, Moderate Pain, 4 doses, Starting on Sun03/26/24 at 1434, Until Sun03/26/24 at 1732, Maximum total of 4 doses. If patient reaches max total dose, please consult anesthesiologist prior to further administration of pain meds. Hold pain meds if there are signs of hypoventilation. Patient preference for lesser PRN pain meds may be honored when the patient requests a less strong medication, a lower dose, or a less intrusive route of administration when the lesser drug, dose and route have been ordered for the patient. This patient request must be documented in the MAR. If both oral and IV options are ordered for the same pain severity, give oral first unless patient cannot tolerate oral intake, PACU HYDROmorphone (Dilaudid) injection 0.5 mg 0.5 mg, Intravenous, EVERY 10 MIN PRN, Severe Pain, 4 doses, Starting on Sun03/26/24 at 1434, Until Sun03/26/24 at 1732, Maximum total of 4 doses If patient reaches max total dose, please consult anesthesiologist prior to further administration of pain meds. Hold pain meds if there are signs of hypoventilation. Patient preference for lesser PRN pain meds may be honored when the patient requests a less strong medication, a lower dose, or a less intrusive route of administration when the lesser drug, dose and route have been ordered for the patient. This patient request must be documented in the MAR. If both oral and IV options are ordered for the same pain severity, give oral first unless patient cannot tolerate oral intake, PACU lactated ringers infusion at 100 mL/hr, Intravenous, CONTINUOUS, Starting on Sun03/26/24 at 1030, Until Sun03/26/24 at 1732, Pre-op $ New Bag/Syringe 03/26/2024 2:24 PM CDT Restarted 03/26/2024 12:45 PM CDT $ New Bag/Syringe 03/26/2024 10:48 AM CDT 100 m L/hr lidocaine PF (Xylocaine MPF) 1 % injection 0.2 mL 0.2 mL, Infiltration, PRE-OP MULTIPLE, 3 doses, Starting on Sun03/26/24 at 1026, Until Sun03/26/24 at 1732, May be used (0.2 ml locally to anesthetize prior to insertion)., Pre-op $ Given 03/26/2024 10:47 AM CDT 0.2 mL metoclopramide (Reglan) injection 5 mg 5 mg, Intravenous, EVERY 6 HOURS PRN, Nausea/Vomiting, Starting on Sun03/26/24 at 1534, Until Sun03/26/24 at 1732, If no relief from ondansetron (ZOFRAN), use metoclopramide (REGLAN) in addition to ondansetron., Post-op metoclopramide (Reglan) injection 5 mg 5 mg, Intramuscular, EVERY 6 HOURS PRN, Nausea/Vomiting, Starting on Sun03/26/24 at 1534, Until Sun03/26/24 at 1732, If no relief from ondansetron (ZOFRAN), use metoclopramide (REGLAN) in addition to ondansetron. Use IM route if IV is unavailable., Post-op naloxone (Narcan) injection 0.04 mg 0.04 mg, Intravenous, POST-OP MULTIPLE, Starting on Sun03/26/24 at 1434, Until Sun03/26/24 at 1732, If respirations are less than 8 per minute and O2 sat is less than 90%, bag/mask patient and notify anesthesia immediately. If directed to administer naloxone, dilute 0.4mg in 9mL normal saline for dilution of 0.04mg/mL. Administer 1mL over 30 seconds while observing the patient response and titrating to effect. If no response, continue IV naloxone at the same rate up to a total of 0.8 mg of diluted naloxone., PACU naloxone (Narcan) injection 0.4 mg 0.4 mg, Intravenous, PRN, Other, If unable or difficult to arouse patient, if respiratory depression is present (less than 8 breaths/min), or if SPO2 less than 93% (and patient was above this at baseline), Starting on Sun03/26/24 at 1534, Until Sun03/26/24 at 1732, Mix 0.4 mg Naloxone in 9 mL Normal Saline for slow IV push. Administer dilute Naloxone solution IV very slowly (5 mL over 2 minutes) while observing the patient response and titrating to effect. If no response, call Rapid Response, continue IV Naloxone at the same rate up to a total of 0.8 mg or 20 mL of diluted Naloxone, and notify physician immediately., Post-op ondansetron (disintegrating) (Zofran ODT) tablet 4 mg 4 mg, Oral, EVERY 6 HOURS PRN, Nausea/Vomiting, Starting on Sun03/26/24 at 1534, Until Sun03/26/24 at 1732, Dissolved orally on tongue, Post-op ondansetron (Zofran) injection 4 mg 4 mg, Intravenous, EVERY 6 HOURS PRN, Nausea/Vomiting, Starting on Sun03/26/24 at 1534, Until Sun03/26/24 at 1732, Administer IV if patient is NPO, actively vomiting, or unable to swallow., Post-op ondansetron (Zofran) injection 4 mg 4 mg, Intravenous, ONCE PRN, Nausea/Vomiting, 1 dose, Starting on Sun03/26/24 at 1434, Until Sun03/26/24 at 1732, First choice, PACU oxyCODONE (immediate release) (Roxicodone) tablet 5 mg 5 mg, Oral, ONCE PRN, Mild Pain, 1 dose, Starting on Sun03/26/24 at 1434, Until Sun03/26/24 at 1732, Use if no IV access or as directed by Anesthesia provider. Patient preference for lesser PRN pain meds may be honored when the patient requests a less strong medication, a lower dose, or a less intrusive route of administration when the lesser drug, dose and route have been ordered for the patient. This patient request must be documented in the MAR. If both oral and IV options are ordered for the same pain severity, give oral first unless patient cannot tolerate oral intake, PACU prochlorperazine (Compazine) injection 10 mg 10 mg, Intravenous, ONCE PRN, Nausea/Vomiting, 1 dose, Starting on Sun03/26/24 at 1434, Until Sun03/26/24 at 1732, Second choice, use if first choice was ineffective., PACU scopolamine (Transderm-Scop) 1 patch 1 patch, Administer over 72 Hours, ONCE, 1 dose, On Sun03/26/24 at 1045, For patients less than 60 years old, without glaucoma, and with a positive history of Post Operative Nausea and Vomiting. Each patch contains 1.5 mg scopolamine base and is formulated to deliver 1 mg of scopolamine over 72 hours. $ Applied 03/26/2024 10:47 AM CDT 1 patch Behind Left Ear scopolamine patch placement confirmation Transdermal, 2 TIMES DAILY, 7 doses, First dose on Sun03/26/24 at 1030, Last dose on Sun03/29/24 at 0900, Patient has a patch to be confirmed on transition to inpatient and 2 times daily., Pre-op throat lozenge 1 lozenge 1 lozenge, Oral, EVERY 2 HOURS PRN, Sore Throat, Starting on Sun03/26/24 at 1534, Until Sun03/26/24 at 1732, Post-op documented in this encounter Active and Recently Administered Medications Times are shown in CDT. Scheduled Medication Order 03/24/2024 03/25/2024 03/26/2024 0.9% NaCl injection 3 mL(Linked Group 1) 3 mL, Intracatheter, EVERY 8 HOURS, First dose on Sun03/26/24 at 1400, Until Discontinued, Flush peripheral IV catheter with 3 mL of normal saline every 8 hours., Pre-op 1400 (Due) acetaminophen (Tylenol) tablet 1,000 mg (COMPLETED) 1,000 mg, Oral, ONCE, 1 dose, On Sun03/26/24 at 1045, Patient preference for lesser PRN pain meds may be honored when the patient requests a less strong medication, a lower dose, or a less intrusive route of administration when the lesser drug, dose and route have been ordered for the patient. This patient request must be documented in the MAR. If both oral and IV options are ordered for the same pain severity, give oral first unless patient cannot tolerate oral intake, Pre-op 1047 ($ Given - Prov ider: Bere Martínez RN) ceFAZolin (Ancef) 2 g in 0.9% NaCl IV 50 mL IVPB (COMPLETED) 2 g, at 100 mL/hr, Intravenous, ONCE, 1 dose, On Sun03/26/24 at 1030, Administer??within 60 minutes??before surgical incision to ensure adequate antibiotic concentration at surgical sites at the time of incision.??Antibiotic infusion must be completed ZERO-TEN minutes?? prior to incision or tourniquet, Indication for anti-infective therapy: Surgical prophylaxis, Pre-op 1250 ($ New Bag/Syri nge - Provider: Simi Vasquez APRN-SECURITY INTERN) lidocaine PF (Xylocaine MPF) 1 % injection 0.2 mL 0.2 mL, Infiltration, PRE-OP MULTIPLE, 3 doses, Starting on Sun03/26/24 at 1026, Until Sun03/26/24 at 1732, May be used (0.2 ml locally to anesthetize prior to insertion)., Pre-op 1047 ($ Given - Prov ider: Bere Martínez RN) naloxone (Narcan) injection 0.04 mg 0.04 mg, Intravenous, POST-OP MULTIPLE, Starting on Sun03/26/24 at 1434, Until Sun03/26/24 at 1732, If respirations are less than 8 per minute and O2 sat is less than 90%, bag/mask patient and notify anesthesia immediately. If directed to administer naloxone, dilute 0.4mg in 9mL normal saline for dilution of 0.04mg/mL. Administer 1mL over 30 seconds while observing the patient response and titrating to effect. If no response, continue IV naloxone at the same rate up to a total of 0.8 mg of diluted naloxone., PACU scopolamine (Transderm-Scop) 1 patch(Linked Group 2) 1 patch, Administer over 72 Hours, ONCE, 1 dose, On Sun03/26/24 at 1045, For patients less than 60 years old, without glaucoma, and with a positive history of Post Operative Nausea and Vomiting. Each patch contains 1.5 mg scopolamine base and is formulated to deliver 1 mg of scopolamine over 72 hours. 1047 ($ Applied - Pr ovider: Bere Martínez RN)1630 (Due: Removed - Provider: Generic, Auto Release - Comment: Time automatically adjusted from order being discontinued) scopolamine patch placement confirmation(Linked Group 2) Transdermal, 2 TIMES DAILY, 7 doses, First dose on Sun03/26/24 at 1030, Last dose on Sun03/29/24 at 0900, Patient has a patch to be confirmed on transition to inpatient and 2 times daily., Pre-op 1030 (Due) Continuous Medication Order 03/24/2024 03/25/2024 03/26/2024 lactated ringers infusion at 100 mL/hr, Intravenous, CONTINUOUS, Starting on Sun03/26/24 at 1030, Until Sun03/26/24 at 1732, Pre-op 1048 ($ New Bag/Syri nge - Provider: Bere Martínez RN)1244 (Paused - Provider: CHANA Garcia - Comment: Switch to gravity)1245 (Restarted - Provider: CHANA Garcia)1424 ($ New Bag/Syringe - Provider: CHANA Garcia) PRN Medication Order 03/24/2024 03/25/2024 03/26/2024 0.9% NaCl injection 1-10 mL(Linked Group 1) 1-10 mL, Intracatheter, PRN, Other, peripheral line flush, Starting on Sun03/26/24 at 1021, Until Sun03/26/24 at 1732, Flush peripheral IV catheter with 1-10 mL of normal saline before and after medications and prn to clear blood from the line or to verify patency., Pre-op 0.9% NaCl irrigation solution (CANCELED) PRN, Starting on Sun03/26/24 at 1320, Until Sun03/26/24 at 1436, Intra-op 1320 ($ Given - Prov ider: Hipolito Cat MD - Comment: PRN) diphenhydrAMINE (Benadryl) capsule 25 mg 25 mg, Oral, EVERY 6 HOURS PRN, Itching, Starting on Sun03/26/24 at 1534, Until Sun03/26/24 at 1732, Post-op diphenhydrAMINE (Benadryl) injection 25 mg 25 mg, Intravenous, ONCE PRN, Nausea/Vomiting, 1 dose, Starting on Sun03/26/24 at 1434, Until Sun03/26/24 at 1732, Third choice, use if first and second choice was ineffective., PACU fentaNYL (PF) (Sublimaze) injection 25 mcg 25 mcg, Intravenous, EVERY 10 MIN PRN, Mild Pain, 4 doses, Starting on Sun03/26/24 at 1434, Until Sun03/26/24 at 1732, Maximum total of 4 doses. If patient reaches max total dose, please consult anesthesiologist prior to further administration of pain meds. Hold pain meds if there are signs of hypoventilation. Patient preference for lesser PRN pain meds may be honored when the patient requests a less strong medication, a lower dose, or a less intrusive route of administration when the lesser drug, dose and route have been ordered for the patient. This patient request must be documented in the MAR. If both oral and IV options are ordered for the same pain severity, give oral first unless patient cannot tolerate oral intake, PACU fentaNYL (PF) (Sublimaze) injection 50 mcg 50 mcg, Intravenous, EVERY 10 MIN PRN, Moderate Pain, 4 doses, Starting on Sun03/26/24 at 1434, Until Sun03/26/24 at 1732, Maximum total of 4 doses. If patient reaches max total dose, please consult anesthesiologist prior to further administration of pain meds. Hold pain meds if there are signs of hypoventilation. Patient preference for lesser PRN pain meds may be honored when the patient requests a less strong medication, a lower dose, or a less intrusive route of administration when the lesser drug, dose and route have been ordered for the patient. This patient request must be documented in the MAR. If both oral and IV options are ordered for the same pain severity, give oral first unless patient cannot tolerate oral intake, PACU HYDROmorphone (Dilaudid) injection 0.5 mg 0.5 mg, Intravenous, EVERY 10 MIN PRN, Severe Pain, 4 doses, Starting on Sun03/26/24 at 1434, Until Sun03/26/24 at 1732, Maximum total of 4 doses If patient reaches max total dose, please consult anesthesiologist prior to further administration of pain meds. Hold pain meds if there are signs of hypoventilation. Patient preference for lesser PRN pain meds may be honored when the patient requests a less strong medication, a lower dose, or a less intrusive route of administration when the lesser drug, dose and route have been ordered for the patient. This patient request must be documented in the MAR. If both oral and IV options are ordered for the same pain severity, give oral first unless patient cannot tolerate oral intake, PACU metoclopramide (Reglan) injection 5 mg 5 mg, Intravenous, EVERY 6 HOURS PRN, Nausea/Vomiting, Starting on Sun03/26/24 at 1534, Until Sun03/26/24 at 1732, If no relief from ondansetron (ZOFRAN), use metoclopramide (REGLAN) in addition to ondansetron., Post-op metoclopramide (Reglan) injection 5 mg 5 mg, Intramuscular, EVERY 6 HOURS PRN, Nausea/Vomiting, Starting on Sun03/26/24 at 1534, Until Sun03/26/24 at 1732, If no relief from ondansetron (ZOFRAN), use metoclopramide (REGLAN) in addition to ondansetron. Use IM route if IV is unavailable., Post-op naloxone (Narcan) injection 0.4 mg 0.4 mg, Intravenous, PRN, Other, If unable or difficult to arouse patient, if respiratory depression is present (less than 8 breaths/min), or if SPO2 less than 93% (and patient was above this at baseline), Starting on Sun03/26/24 at 1534, Until Sun03/26/24 at 1732, Mix 0.4 mg Naloxone in 9 mL Normal Saline for slow IV push. Administer dilute Naloxone solution IV very slowly (5 mL over 2 minutes) while observing the patient response and titrating to effect. If no response, call Rapid Response, continue IV Naloxone at the same rate up to a total of 0.8 mg or 20 mL of diluted Naloxone, and notify physician immediately., Post-op ondansetron (disintegrating) (Zofran ODT) tablet 4 mg 4 mg, Oral, EVERY 6 HOURS PRN, Nausea/Vomiting, Starting on Sun03/26/24 at 1534, Until Sun03/26/24 at 1732, Dissolved orally on tongue, Post-op ondansetron (Zofran) injection 4 mg 4 mg, Intravenous, EVERY 6 HOURS PRN, Nausea/Vomiting, Starting on Sun03/26/24 at 1534, Until Sun03/26/24 at 1732, Administer IV if patient is NPO, actively vomiting, or unable to swallow., Post-op ondansetron (Zofran) injection 4 mg 4 mg, Intravenous, ONCE PRN, Nausea/Vomiting, 1 dose, Starting on Sun03/26/24 at 1434, Until Sun03/26/24 at 1732, First choice, PACU oxyCODONE (immediate release) (Roxicodone) tablet 5 mg 5 mg, Oral, ONCE PRN, Mild Pain, 1 dose, Starting on Sun03/26/24 at 1434, Until Sun03/26/24 at 1732, Use if no IV access or as directed by Anesthesia provider. Patient preference for lesser PRN pain meds may be honored when the patient requests a less strong medication, a lower dose, or a less intrusive route of administration when the lesser drug, dose and route have been ordered for the patient. This patient request must be documented in the MAR. If both oral and IV options are ordered for the same pain severity, give oral first unless patient cannot tolerate oral intake, PACU prochlorperazine (Compazine) injection 10 mg 10 mg, Intravenous, ONCE PRN, Nausea/Vomiting, 1 dose, Starting on Sun03/26/24 at 1434, Until Sun03/26/24 at 1732, Second choice, use if first choice was ineffective., PACU throat lozenge 1 lozenge 1 lozenge, Oral, EVERY 2 HOURS PRN, Sore Throat, Starting on Sun03/26/24 at 1534, Until Sun03/26/24 at 1732, Post-op Linked Groups Order Group 1: SALINE LOCK, INSERT AND MAINTAIN (CANCELED) Routine, CONTINUOUS, Starting on Sun03/26/24 at 1030, Until Specified, Pre-op, New collection And 0.9% NaCl injection 3 mLJump to med 3 mL, Intracatheter, EVERY 8 HOURS, First dose on Sun03/26/24 at 1400, Until Discontinued, Flush peripheral IV catheter with 3 mL of normal saline every 8 hours., Pre-op And 0.9% NaCl injection 1-10 mLJump to med 1-10 mL, Intracatheter, PRN, Other, peripheral line flush, Starting on Sun03/26/24 at 1021, Until Sun03/26/24 at 1732, Flush peripheral IV catheter with 1-10 mL of normal saline before and after medications and prn to clear blood from the line or to verify patency., Pre-op Group 2: scopolamine (Transderm-Scop) 1 patchJump to med 1 patch, Administer over 72 Hours, ONCE, 1 dose, On Sun03/26/24 at 1045, For patients less than 60 years old, without glaucoma, and with a positive history of Post Operative Nausea and Vomiting. Each patch contains 1.5 mg scopolamine base and is formulated to deliver 1 mg of scopolamine over 72 hours. And scopolamine patch placement confirmationJump to med Transdermal, 2 TIMES DAILY, 7 doses, First dose on Sun03/26/24 at 1030, Last dose on Sun03/29/24 at 0900, Patient has a patch to be confirmed on transition to inpatient and 2 times daily., Pre-op documented in this encounter Care Teams Business Development Specialist Relationship Specialty Start Date End Date Siva Burgos MD [address] [place] [address] PCP - General Internal Medicine 07/06/22 documented as of this encounter
--- OUTSIDE RECORDS SUMMARY | 2024-06-23 18:20 | XMS_ITS | Encounter Summary ---
Author Organization [facility] Health Address [address] [place] [address] Care Team Providers Care Press Operator Meat Name Role Phone Siva Burgos MD Primary Care Provider [phone] Encounter Details Date Type Department Care Team (Latest Contact Info) Description 11/07/2022 Travel Social History Tobacco Use Types Packs/Day [...] suspected to have Coronavirus/COVID-19? No / Unsure 11/07/2022 10:38 AM CDT documented as of this encounter Plan of Treatment Not on file documented as of this encounter Visit Diagnoses Not on filedocumented in this encounter Care Teams Press Operator Meat Relationship Specialty Start Date End Date Siva Burgos MD [address] [place] [address] PCP - General Internal Medicine 07/06/22 documented as of this encounter
--- OUTSIDE RECORDS SUMMARY | 2024-06-23 18:20 | XMS_ITS | Encounter Summary ---
Author Organization [facility] Health Address [address] [place] [address] Care Team Providers Care Fly Finisher Name Role Phone Siva Burgos MD Primary Care Provider [phone] Encounter Details Date Type Department Care Team (Latest Contact Info) Description 07/23/2022 Travel Social History Tobacco Use Types Packs/Day [...] Coronavirus/COVID-19? No / Unsure 07/06/2022 9:18 AM CROP DUSTER documented as of this encounter Plan of Treatment Not on file documented as of this encounter Visit Diagnoses Not on filedocumented in this encounter Care Teams Fly Finisher Relationship Specialty Start Date End Date Siva Burgos MD [address] [place] [address] PCP - General Internal Medicine 07/06/22 documented as of this encounter
--- OUTSIDE RECORDS SUMMARY | 2024-06-23 18:20 | XMS_ITS | Encounter Summary ---
Author Organization [facility] Health Address [address] [place] [address] Care Team Providers Care Shirt Ironer Supervisor Name Role Phone Siva Burgos MD Primary Care Provider [phone] Encounter Details Date Type Department Care Team (Latest Contact Info) Description 03/20/2024 Travel Social History Tobacco Use Types Packs/Day [...] on filedocumented in this encounter Care Teams Shirt Ironer Supervisor Relationship Specialty Start Date End Date Siva Burgos MD [address] [place] [address] PCP - General Internal Medicine 07/06/22 documented as of this encounter
--- OUTSIDE RECORDS SUMMARY | 2024-06-23 18:20 | XMS_ITS | Encounter Summary ---
Author Organization [facility] Health Address [address] [place] [address] Care Team Providers Care Child Study Team Director Name Role Phone Siva Burgos MD Primary Care Provider [phone] Encounter Details Date Type Department Care Team (Latest Contact Info) Description 02/29/2024 Travel Social History Tobacco Use Types Packs/Day [...] on filedocumented in this encounter Care Teams Child Study Team Director Relationship Specialty Start Date End Date Siva Burgos MD [address] [place] [address] PCP - General Internal Medicine 07/06/22 documented as of this encounter
--- OUTSIDE RECORDS SUMMARY | 2024-06-23 18:20 | XMS_ITS | Encounter Summary ---
Author Organization [facility] Address [address] [place] [address] Care Team Providers Care Loom Fixer Apprentice Name Role Phone Siva Burgos MD Primary Care Provider [phone] Reason for Visit * Reason Comments HEAT EXPOSURE dehydrated while at a concert, hands noted with tight spasms, 500NS given, tightness in the chest Encounter Details Date Type Department Care Team (Late st Contact Info) Description 12/29/2022 7:58 PM CDT - 12/30/2022 3:09 AM CDT Emergency ER at [address] [id number] Meghann Gross MD [address] [place] [address] [place] [address] Muscle cramping; Heat exhaustion, initial encounter; Hypokalemia Discharge Disposition: Home or Self Care Social [...] Sign Reading Time Taken Comments Blood Pressure 92/56 12/30/2022 3:01 AM CDT Pulse 60 12/30/2022 3:01 AM CDT Temperature 36 ??C (96.8 ??F) 12/29/2022 7:55 PM CDT Respiratory Rate 15 12/30/2022 3:01 AM CDT Oxygen Saturation 99% 12/30/2022 3:01 AM CDT Inhaled Oxygen Concentration - - Weight 56.7 kg (125 lb) 12/29/2022 7:55 PM CDT Height 160 cm (5' 3 ) 12/29/2022 7:55 PM CDT Body Mass Index 22.14 12/29/2022 7:55 PM CDT documented in this encounter Discharge Instructions * Discharge Instructions* Meghann Gross MD - 12/29/2022 11:12 PM CDT Please follow up with your primary care physician within two days. If you do not have a primary physician, please call to arrange follow up appointment. Return to the Emergency Department if you experience any new or worsening symptoms. documented in this encounter Medications at Time of Discharge Medication Sig Dispensed Refills Start Date End Date meloxicam (Mobic) 15 MG tablet Take 1 (one) tablet by mouth once daily 90 tablet 1 08/08/2022 documented as of this encounter ED Notes * Juana Dorado RN - 12/30/2022 3:09 AM CDT Discharge instructions reviewed with pt. Pt verbalized understanding. Pt A&Ox4 and ambulatory at time of discharge. NAD. VSS. * Juana Dorado RN - 12/30/2022 1:45 AM CDT Pt resting comfortably on stretcher. No s/s of pain or distress noted. Respirations even and unlabored, chest rise and fall observed. Pt denies all complaints at this time. [place] and water given to pt. Waiting on K+ to finish for discharge. Will continue to monitor. * Juana Dorado RN - 12/29/2022 11:48 PM CDT Pt resting comfortably on stretcher. No s/s of pain or distress noted. Respirations even and unlabored, chest rise and fall observed. Pt denies all complaints at this time. Family at bedside. Will continue to monitor. * Meghann Gross MD - 12/29/2022 10:13 PM CDT EMERGENCY DEPARTMENT NOTE 12/29/2022 CC: HEAT EXPOSURE (dehydrated while at a concert, hands noted with tight spasms, 500NS given, tightness in the chest/) HPI: Luciana Yost is a 47 year old female presenting for evaluation of hand cramping. She statesthat it started prior to arrival, when she was outside, waiting for a concert to start. She states that she began to feel spasms in her bilateral hands, and was unable to move them. Her symptoms havesince improved. She states she has had similar symptoms in the past, but never this severe. She denies nausea, vomiting, diarrhea. Chart History: Past Medical History: Diagnosis Date ??? Gallstones Past Surgical History: Procedure Laterality Date ??? CARPAL TUNNEL SURGERY No current facility-administered medications for this encounter. Current Outpatient Medications Medication Sig Dispense Refill ??? meloxicam (Mobic) 15 MG tablet Take 1 (one) tablet by mouth once daily 90 tablet 1 No Known Allergies PCP: Siva Burgos MD Vital Signs: BP 92/56 Pulse 60 Temp 96.8 ??F (36 ??C) Resp 15 Ht 1.6 m (5' 3 ) Wt 56.7 kg(125 lb) SpO2 99% Pertinent Physical Exam Findings: Constitutional: No acute distress Eyes: EOMI, conjunctiva white HENT: MMM, neck supple without meningismus CV: RRR Resp: No respiratory distress on RA, CTAB GI: Abd is soft, non-distended, non-tender MSK: No deformities Skin: Warm, dry Neuro: Alert Psych: Appropriate mood and affect Labs Reviewed CBC W AUTO DIFFERENTIAL - Abnormal; Notable for the following components: Result Value Neutrophils % 73.2 (*) Lymphocytes % 19.4 (*) Neutrophil Absolute 7.28 (*) All other components within normal limits COMPREHENSIVE METABOLIC PANEL - Abnormal; Notable for the following components: Glucose 107 (*) Potassium 2.7 (*) Chloride 110 (*) CO2 20 (*) eGFR by CKD-EPI 69 (*) All other components within normal limits URINALYSIS REFLEX MICROSCOPIC REFLEX CULTURE - Abnormal; Notable for the following components: Ketone UA 1+ (*) All other components within normal limits Narrative: CK BLOOD - Normal MAGNESIUM BLOOD - Normal No orders to display Medications 0.9% NaCl IV bolus (0 mL Intravenous Stopped 12/29/22 2242) ondansetron (Zofran) injection 4 mg (4 mg Intravenous $ Given 12/29/22 2041) potassium chloride ER (Klor-Con M) tablet 40 mEq (40 mEq Oral $ Given 12/29/22 2304) potassium chloride 40 mEq in 270 mL bolus (0 mEq Intravenous Stopped 12/30/22 0305) Procedures: Pulse Ox Interpretation: Saturation: (%) 100 Oxygen Delivery: Room air Interpretation: No hypoxia at this time. Rhythm strip interpretation: Normal sinus rhythm, no arrhythmia noted. Ventricular rate (bpm): 68 MDM: This is a 47 yo female presenting w/ muscle spasms/cramps, most likely in the setting of hypokalemia of unknown etiology. Labs reviewed and interpreted by me and remarkable for hypokalemia. The patient was treated with PO and IV potassium replacement, IVF. She was discharged home w/ PCP f/u for repeat labs, strict return precautions. Assessment/Diagnosis and Plan: ICD-10-CM 1. Muscle cramping R25.2 2. Heat exhaustion, initial encounter T67.5XXA EKG 12-LEAD 3. Hypokalemia E87.6 * Juana Dorado RN - 12/29/2022 9:17 PM CDT Pt was at a concert when she felt her hands starting to cramp. Pt stated she started to feel her chest tighten. No c/o at this time. Pt was started on NS. Pt resting comfortably on stretcher. No s/s of pain or distress noted. Respirations even and unlabored, chest rise and fall observed. Pt denies all complaints at this time. Will continue to monitor. * Moon Jones RN - 12/29/2022 9:00 PM CDT Bed: 4 Expected date: Expected time: Means of arrival: Comments: WR * Kathleen Beltrán APRN-CNP - 12/29/2022 8:23 PM CDT RME CC: HEAT EXPOSURE (dehydrated while at a concert, hands noted with tight spasms, 500NS given, tightness in the chest/) Provider in Triage HPI: Luciana Yost is a 47 year old female who presents with possible heat exhaustion Pt states having upper extremity hand pains, cramps, tingling and tightness. Sxs started 6pmthis evening. Pt states was out at a concert standing outside since 4pm. Has nausea. No vomiting. HX: gallstones, carpal tunnel surgery Review of Systems: Has hand cramping and tingling sensation Primary System Noted in HPI Constitutional: No fevers or chills Psychiatric: No mood changes All other systems reviewed and are negative Limited Chart History: Past Medical History: Diagnosis Date ??? Gallstones Past Surgical History: Procedure Laterality Date ??? CARPAL TUNNEL SURGERY Current Facility-Administered Medications Medication Dose Route Frequency Provider Last Rate Last Admin ??? 0.9% NaCl IV bolus 1,000 mL Intravenous Once Kathleen Beltrán APRN-CNP ??? ondansetron (Zofran) injection 4 mg 4 mg Intravenous Now JerelKathleen APRN-DOUG Current Outpatient Medications Medication Sig Dispense Refill ??? meloxicam (Mobic) 15 MG tablet Take 1 (one) tablet by mouth once daily 90 tablet 1 No Known Allergies PCP: Siva Burgos MD Above may be pending completion VS: BP 98/60 Pulse 85 Temp 96.8 ??F (36 ??C) Resp 16 Ht 1.6 m (5' 3 ) Wt 56.7 kg (125 lb) SpO2 100% Pertinent Physical Findings: General Appearance: generally well-appearing, well-nourished. No acute distress. Head: normocephalic, atraumatic EYES: EOMI, clear conjunctiva ENT: Normal external ears and nose NECK: supple, no stiffness or restricted ROM; no lymph nodes, no JVD, no nuchal rigidity Heart: regular rate and rhythm. No murmur. Lungs: Normal respiration; CTAB ABD: soft, nttp, nondistended MSK: No gross deformities noted Upper extremities: hands are tightly closed and unable to extend finger due to cramping. Extremities: has ROM to upper / lower extremities; no edema SKIN: warm and dry; no rash NEURO: Grossly nonfocal. Alert and oriented, moving all 4 extremities. CN not formally tested but appears grossly intact. 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 I have reviewed all lab and imaging resulted ordered during this visit and available at the time ofthis note. Triage notes and available nursing notes reviewed. Previous medical record reviewed whenavailable. Management options include but not limited to: physical exam, laboratory testing, discussion with other providers. Initial Plan: ekg, lab, meds IVF, and to main ED when room available Dispo: TBA This is a medical screening assessment for the patient's initial workup. Patient encouraged to stayfor the entire duration of their workup. Another ED provider will re-assess the patient, order additional workup if necessary, and determine disposition. Of note, this document was completed using [employer] dictation software. Please excuse any typographical errors. documented in this encounter Miscellaneous Notes * Clinical References Meghann Carey MD - 12/29/2022 11:13 PM CDT [id number] Hypokalemia Hypokalemia means a low level of potassium in the blood. This most often occurs in people who take water pills (diuretics). It can also result from severe vomiting or diarrhea. You may also have it if you take laxatives for long periods of time. It sometimes happens if you have low magnesium (hypoma gnesemia). If you have this, your healthcare provider will treat the low magnesium first. A mild case of hypokalemia often causes no symptoms. It is only found with blood testing. More severe potassium loss causes: ?? Overall weakness ?? Muscle or stomach cramps ?? Rapid or irregular heartbeats (heart palpitations) ?? Low blood pressure ?? Muscle weakness ?? Short-term paralysis in some people Home care ?? Take any potassium supplements as prescribed. ?? Eat foods rich in potassium. High amounts of potassium are found in baked potatoes, baked sweet potatoes, spinach, cantaloupe, cod, halibut, salmon, and scallops. White, red, or medellin beans are also very good sources. So are avocados, orange juice, bananas, and tomato juice. ?? If you take certain types of diuretics, you will also need to take potassium supplements. Talk with your healthcare provider. Follow-up care Follow up with your healthcare provider for a repeat blood test within the next week, or as advisedby our staff. When to get medical advice Call your healthcare provider right away if you have: ?? Increased weakness, fatigue, or muscle cramps ?? Dizziness Call 911 Call 911 if you have: ?? Irregular heartbeat, extra beats, or very fast heart rate ?? Loss of consciousness Last Reviewed Date: 2022 ?? [id number] [employer]. All rights reserved. This information is not intended as a substitute for professional medical care. Always follow your healthcare professional's instructions. * Clinical References AVS - Meghann Gross MD - 12/29/2022 11:13 PM CDT [id number] Discharge Instructions for Hypokalemia You have been diagnosed with hypokalemia. This means you have a low level of potassium in your blood. Potassium helps your nerve and muscle cells work as they should. These cells include the cells inyour heart. A low level of potassium in the blood can cause serious problems, such as abnormal heart rhythms and even a heart attack. Diet changes Eat more potassium-rich foods such as: ?? Bananas ?? Oranges and orange juice ?? Tomatoes, tomato sauce, and tomato juice ?? Leafy green vegetables, such as spinach, kale, salad greens, collards, and chard ?? Melons (all kinds) ?? Pomegranates ?? Peas ?? Beans ?? Potatoes ?? Sweet potatoes ?? Avocados, including guacamole ?? Vegetable juices, such as V8 ?? Fruit juices ?? All nuts and seeds ?? Fish, including tuna, halibut, salmon, cod, snapper, nolan, swordfish, and perch ?? Milk, including fat-free, low-fat, whole, chocolate, and buttermilk ?? Soy milk Other home care ?? Take a potassium supplement as directed by your healthcare provider. ?? After heavy exercise or any activity that causes you to sweat a lot, grab a beverage high in potassium. This includes chocolate milk, coconut water, orange juice, or low-sodium vegetable juices. ?? Be sure to eat foods or drink fluids with potassium if you have diarrhea or vomiting. ?? Have your potassium levels checked regularly as directed. ?? Take all medicines exactly as directed. ?? Tell your healthcare provider about all prescription and [id number] medicines you are taking. This includes herbal products. Some water pills (diuretics) can cause you to lose potassium. ?? Don't have foods that are high in salt. Pass up canned and prepared foods that are high in salt. Follow-up ?? Make a follow-up appointment as directed by our staff. ?? Keep all follow-up appointments. Your healthcare provider needs to monitor your condition closely. When to call your healthcare provider Call your provider right away or go to the emergency room if you have any of the following: ?? Vomiting ?? Fatigue ?? Diarrhea ?? Rapid, irregular heartbeat ?? Shortness of breath ?? Chest pain ?? Muscle cramps, spasms, or twitching ?? Weakness ?? Paralysis Last Reviewed Date: 2022 ?? [id number] [employer]. All rights reserved. This information is not intended as a substitute for professional medical care. Always follow your healthcare professional's instructions. documented in this encounter Plan of Treatment Not on file documented as of this encounter Procedures Procedure Name Priority Date/Time Associated Diagnosis Comments CARDIAC EKG ORDER 01/01/2023 7:3 5 PM CDT URINALYSIS REFLEX MICROSCOPIC REFLEX CULTURE STAT 12/29/2022 8:41 PM CDT CBC W AUTO DIFFERENTIAL STAT 12/29/2022 8:41 PM CDT COMPREHENSIVE METABOLIC PANEL STAT 12/29/2022 8:41 PM CDT MAGNESIUM BLOOD STAT 12/29/2022 8:41 PM CDT CK BLOOD STAT 12/29/2022 8:41 PM CDT EKG 12-LEAD STAT 12/29/2022 8:35 PM CDT Heat exhaustion, initial encounter documented in this encounter Results * CARDIAC EKG ORDER (01/01/2023 7:35 PM CDT) Narrative 01/01/2023 7:35 PM CDT Ordered by an unspecified provider. Scanned Document CARDIAC SERVICES ORD ERABLES * (ABNORMAL) URINALYSIS REFLEX MICROSCOPIC REFLEX CULTURE (12/29/2022 8:41 PM CDT) Color UA Yellow Straw, Yellow 12/29/2022 8:57 PM CDT [facility] Clarity UA Clear Clear 12/29/2022 8:57 PM CDT [facility] Glucose UA Negative Negative 12/29/2022 8:57 PM CDT [facility] Bilirubin UA Negative Negative 12/29/2022 8:57 PM CDT [facility] Ketone UA 1+(A) Negative 12/29/2022 8:57 PM CDT [facility] Specific [place] UA 1.015 1.005 - 1.030 12/29/2022 8:57 PM CDT [facility] Blood UA Negative Negative 12/29/2022 8:57 PM CDT [facility] pH UA 8.0 5.0 - 8.0 pH 12/29/2022 8:57 PM CDT [facility] Protein UA Negative Negative 12/29/2022 8:57 PM CDT [facility] Urobilinogen UA Negative Negative mg/dL 12/29/2022 8:57 PM CDT [facility] Nitrite UA Negative Negative 12/29/2022 8:57 PM CDT [facility] Leukocyte UA Negative Negative 12/29/2022 8:57 PM CDT [facility] Urine Microscopy Urine microscopy not indicated 12/29/2022 8:57 PM CDT [facility] Reflex Status Culture not indicated 12/29/2022 8:57 PM CDT [facility] Urine URINE SPECIMEN OBTAINED BY CLEAN CATCH PROCEDURE / Unknown Collection / Unknown 12/29/2022 8:41 PM CDT 12/29/2022 8:49 PM CDT Narrative [facility] - 12/29/2022 8:57 PM CDT Kathleen Beltrán EPIC INTERFACE ANALYST-CUPOLA TENDER HELPER LAB - URIN ALYSIS ORDERABLES [facility] [address] [place] [address] * MAGNESIUM BLOOD (12/29/2022 8:41 PM CDT) Magnesium 1.7 1.6 - 2.6 mg/dL 12/29/2022 9:07 PM CDT [facility] Blood BLOOD SPECIMEN / Unknown Venipuncture / Unknown 12/29/2022 8:41 PM CDT 12/29/2022 8:49 PM CDT Kathleen Beltrán EPIC INTERFACE ANALYST-CUPOLA TENDER HELPER LAB - CHEM ISTRY ORDERABLES [facility] [address] [place] [address] * (ABNORMAL) COMPREHENSIVE METABOLIC PANEL (12/29/2022 8:41 PM CDT) Glucose 107(H) 70 - 105 mg/dL 12/29/2022 9:07 PM CDT [facility] Sodium 143 136 - 145 mmol/L 12/29/2022 9:07 PM CDT [facility] Potassium 2.7(L) 3.5 - 5.1 mmol/L 12/29/2022 9:07 PM CDT [facility] Chloride 110(H) 98 - 107 mmol/L 12/29/2022 9:07 PM CDT [facility] CO2 20(L) 23 - 31 mmol/L 12/29/2022 9:07 PM CDT [facility] Calcium 9.5 8.4 - 10.4 mg/dL 12/29/2022 9:07 PM CDT [facility] Anion Gap 13 8 - 18 mmol/L 12/29/2022 9:07 PM CDT [facility] BUN 12 7 - 18.7 mg/dL 12/29/2022 9:07 PM CDT [facility] Creatinine 1.01 0.57 - 1.11 mg/dL 12/29/2022 9:07 PM CDT [facility] Alkaline Phosphatase 108 40 - 150 U/L 12/29/2022 9:07 PM CDT [facility] ALT 18 0 - 61 U/L 12/29/2022 9:07 PM CDT [facility] AST 26 5 - 34 U/L 12/29/2022 9:07 PM CDT [facility] Protein Total 6.4 6.4 - 8.3 gm/dL 12/29/2022 9:07 PM CDT [facility] Albumin 4.2 3.5 - 5.2 gm/dL 12/29/2022 9:07 PM CDT [facility] Bilirubin Total 0.7 0.2 - 1.2 mg/dL 12/29/2022 9:07 PM CDT [facility] eGFR by CKD-EPI 69(L) >=90 mL/min/1.7 3 m2 12/29/2022 9:07 PM CDT [facility] Blood BLOOD SPECIMEN / Unknown Venipuncture / Unknown 12/29/2022 8:41 PM CDT 12/29/2022 8:49 PM CDT Kathleen Flores Jerel EPIC INTERFACE ANALYST-CUPOLA TENDER HELPER LAB - CHEM ISTRY ORDERABLES [facility] [address] [place] [address] * (ABNORMAL) CBC W AUTO DIFFERENTIAL (12/29/2022 8:41 PM CDT) WBC 10.0 4.4 - 10.7 x10E9/L 12/29/2022 8:55 PM CDT [facility] WBC Corrected 12/29/2022 8:55 PM CDT [facility] RBC 4.04 3.80 - 5.20 x10E12/L 12/29/2022 8:55 PM CDT [facility] Hemoglobin 12.7 12.0 - 15.6 gm/dL 12/29/2022 8:55 PM CDT [facility] Hematocrit 37.0 35.9 - 45.5 % 12/29/2022 8:55 PM CDT [facility] MCV 91.6 80.7 - 98.3 fl 12/29/2022 8:55 PM CDT [facility] MCH 31.4 26.7 - 34.0 pg 12/29/2022 8:55 PM CDT [facility] MCHC 34.3 30.8 - 35.9 gm/dL 12/29/2022 8:55 PM CDT [facility] Platelet Count 222 153 - 416 x10E9/L 12/29/2022 8:55 PM CDT [facility] RDW-CV 12.2 12.1 - 14.9 % [...] - 7.14 x10E9/L 12/29/2022 8:55 PM CDT [facility] Lymphocytes Absolute 1.93 1.07 - 3.94 x10E9/L 12/29/2022 8:55 PM CDT [facility] Monocytes Absolute 0.55 0.26 - 1.07 x10E9/L 12/29/2022 8:55 PM CDT [facility] Eosinophils Absolute 0.09 0 - 0.47 x10E9/L 12/29/2022 8:55 PM CDT [facility] Basophils Absolute 0.07 0 - 0.08 x10E9/L 12/29/2022 8:55 PM CDT [facility] Immature Granulocytes Absolute 0.03 0.00 - 0.06 x10E9/L 12/29/2022 8:55 PM CDT [facility] nRBC Auto 0 /100 WBC 12/29/2022 8:55 PM CDT [facility] Blood BLOOD SPECIMEN / Unknown Venipuncture / Unknown 12/29/2022 8:41 PM CDT 12/29/2022 8:49 PM CDT Kathleen Beltrán EPIC INTERFACE ANALYST-CUPOLA TENDER HELPER LAB - BJORN TOLOGY ORDERABLES [facility] [address] [place] [address] * CK BLOOD (12/29/2022 8:41 PM CDT) CK 87 29 - 168 U/L 12/29/2022 9:07 PM CDT [facility] Blood BLOOD SPECIMEN / Unknown Venipuncture / Unknown 12/29/2022 8:41 PM CDT 12/29/2022 8:49 PM CDT Kathleen Beltrán APRN-CUPOLA TENDER HELPER LAB - CHEM ISTRY ORDERABLES Performing Organization Address [facility] Phone Number [facility] [address] [place] [address] * EKG 12-LEAD (12/29/2022 8:35 PM CDT) Ventricular Rate 60 BPM [facility] Atrial Rate 60 BPM [facility] P-R Interval 116 ms [facility] QRS Duration ms 88 ms [facility] Q-T Interval ms 414 ms [facility] QTC Calculation (Bezet) 414 ms [facility] Calculated P [place] 0 degrees [facility] Calculated R [place] 57 degrees [facility] Calculated T [place] 44 degrees [facility] Interpretation EKG Normal sinus rhythm Normal ECG No previous ECGs available Confirmed by CAM MERAZ, RACHID HINOJOSA ([id number]) on 01/01/2023 10:19:53 AM [facility] 12/29/2022 8:35 PM CDT 01/01/2023 10:19 AM CDT Kathleen Beltrán EPIC INTERFACE ANALYST-CUPOLA TENDER HELPER ECG ORDERA BLES Performing Organization Address [facility] de Phone Number [facility] documented in this encounter Visit Diagnoses Diagnosis Muscle cramping Heat exhaustion, initial encounter Hypokalemia Hypopotassemia documented in this encounter Administered Medications Inactive Administered Medications - up to 3 most recent administrations Medication Order MAR Action Action Date Dose Rate Site 0.9% NaCl IV bolus 1,000 mL, at 983.61 mL/hr, Administer over 61 Minutes, ONCE, 1 dose, On Sun12/29/22 at 2045 $ New Bag/Syringe 12/29/2022 8:41 PM CDT 1,000 mL 983.61 mL/hr ondansetron (Zofran) injection 4 mg 4 mg, Intravenous, NOW, 1 dose, On Sun12/29/22 at 2030, Administer over 2 to 5 minutes. $ Given 12/29/2022 8:41 PM CDT 4 mg potassium chloride 40 mEq in 270 mL bolus 40 mEq, at 67.5 mL/hr, Administer over 4 Hours, Intravenous, NOW, 1 dose, On Sun12/29/22 at 2215 $ New Bag/Syringe 12/29/2022 11:04 PM CDT 40 mEq 67.5 mL/hr potassium chloride ER (Klor-Con M) tablet 40 mEq 40 mEq, Oral, ONCE, 1 dose, On Sun12/29/22 at 2230, Do not crush or chew. $ Given 12/29/2022 11:04 PM CDT 40 mEq documented in this encounter Active and Recently Administered Medications Times are shown in CDT. Scheduled Medication Order 12/28/2022 12/29/2022 12/30/2022 0.9% NaCl IV bolus (COMPLETED) 1,000 mL, at 983.61 mL/hr, Administer over 61 Minutes, ONCE, 1 dose, On Sun12/29/22 at 2045 2040 ($ New Bag/Syringe - Provider: Breanne Villafana RN)2242 (Stopped - Provider: Juana Dorado, BALJIT) ondansetron (Zofran) injection 4 mg (COMPLETED) 4 mg, Intravenous, NOW, 1 dose, On Sun12/29/22 at 2030, Administer over 2 to 5 minutes. 2040 ($ Given - Provider: Breanne Villafana RN) potassium chloride 40 mEq in 270 mL bolus (COMPLETED) 40 mEq, at 67.5 mL/hr, Administer over 4 Hours, Intravenous, NOW, 1 dose, On Sun12/29/22 at 2215 2304 ($ New Bag/Syringe - Provider: Juana Dorado, RN) 0305 (Stopped - Provider: Juana Dorado, BALJIT) potassium chloride ER (Klor-Con M) tablet 40 mEq (COMPLETED) 40 mEq, Oral, ONCE, 1 dose, On Sun12/29/22 at 2230, Do not crush or chew. 2304 ($ Given - Provider: Juana Dorado RN) documented in this encounter Care Teams Loom Fixer Apprentice Relationship Specialty Start Date End Date Siva Burgos MD [address] [place] [address] PCP - General Internal Medicine 07/06/22 documented as of this encounter
--- OUTSIDE RECORDS SUMMARY | 2024-06-23 18:20 | XMS_ITS | Encounter Summary ---
Author Organization [facility] Address [address] [place] [address] Care Team Providers Care Delinquency Counselor Name Role Phone Siva Burgos MD Primary Care Provider [phone] Reason for Referral * OP/Amb RFL Auth (Routine) - Closed Specialty Diagnoses / Procedures Referred By Contac t Referred To Contact Diagnoses Trigger thumb of both hands Procedures ME INJ TENDON SHEATH/LIGAMENT/APONEUROSIS Hipolito Cat MD [address] [address] Referral ID Status Reason Start Date Expiration Date Visits Re quested Visits Authorized [id number] Closed 04/27/2023 04/26/2024 1 1 RVENTIONAL NEURORADIOLOGIST * OP/Amb RFL Auth (Routine) - Closed Specialty Diagnoses / Procedures Referred By Contac t Referred To Contact Diagnoses Trigger thumb of both hands Procedures ME INJ TENDON SHEATH/LIGAMENT/APONEUROSIS Hipolito Cat MD [address] [address] Referral ID Status Reason Start Date Expiration Date Visits Re quested Visits Authorized [id number] Closed 04/27/2023 04/26/2024 1 1 RVENTIONAL NEURORADIOLOGIST Reason for Visit * Reason Comments Pain Hand Finger Pain * Evaluate & Treat (Routine) - Closed Specialty Diagnoses / Procedures Referred By Contac t Referred To Contact Orthopedics Diagnoses Trigger finger, unspecified finger, unspecified laterality Francisco Martino MD [address] [place] [address] 2L [place] [address] [facility] [address] [place] [address] Referral ID Status Reason Start Date Expiration Date V isits Requested Visits Authorized [id number] Closed Specialty Services Required 04/03/2023 04/02/2024 1 1 Encounter Details Date Type Department Care Team (Late st Contact Info) Description 04/27/2023 1:15 PM INTERVENTIONAL NEURORADIOLOGIST Office Visit [facility] - Orthopedics [address] [place] [address], [place] [address] Hipolito Cat MD [address] [place] [address] [address] [place] [address] Trigger thumb of both hands (Primary Dx) Social History Tobacco Use Types Packs/Day Years [...] Date Recorded Patient Health Questionnaire-2 Score 0 04/25/2023 Sex and Gender Information Value Date Recorded Sex Assigned at Not on file Gender Identity Not on file Sexual Orientation Not on file documented as of this encounter Patient Instructions * Patient Instructions* Shena Terrazas RN - 04/27/2023 1:44 PM INTERVENTIONAL NEURORADIOLOGIST Images from the original note were not included. Orthopaedic Hand, Shoulder and Elbow Surgery Visit Summary Thank you for coming in to see us today for your bilateral trigger thumb. We discussed the following treatment plan today: Today you received a steroid (or cortisone) injection in the clinic. This consisted of 1% lidocaine(numbing medicine) and kenalog (steroid). It takes the steroid 3-5 days to start working and up to two weeks to get the full effect. If needed, apply ice at the injection site for 20 minutes at a time, 3 to 5 times per day, for any soreness after the injection. Follow up: as needed Please contact our clinic call center at if you need to schedule or change an appointment. For medical emergencies please call 911. You may also visit our web-site at [email or web address] for other information. Please contact Radha Barillas RN at [phone] or through [email or web address] if you have any further questions or concerns. Thank you for trusting me and [facility] with your health. Sincerely, Hipolito Cat MD, [facility] Hand, Shoulder and Elbow Greenskeeper SupervisorCandle Wrapper of Orthopaedic Surgery [facility] Orthopedics - [facility] Medicine - [address] [place] [address] For Appointments: [facility]-[address] [facility], [address] [facility] - [facility] - [address] [place] [address], [address] For Appointments: For all clinical questions: RVENTIONAL NEURORADIOLOGIST documented in this encounter Progress Notes * Sree Fairchild MD - 04/27/2023 1:25 PM CST Images from the original note were not included. 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 They have been having bilateral thumb pain for 2 month(s). They did not have an injury to this thumb. The patient has report locking of the thumb. The patient reports that the pain is felt during the day and night. The patient does not have sleepdisturbances because of the cami. They can normally use their hand for [...] had a steroid injection at this time. 04/25/2023 Patient-entered Ortho Intake Form Referring provider Dr. martino Reason for visit Right Thumb What are [...] Never Alcohol intake? Yes Taking opioid/narcotic? No 04/25/2023 Patient-Reported Satisfaction Current state satisfactory? No Prior treatment? No Currently taking narcotics? No 04/25/2023 PROMIS Upper Extremity PROMIS UE Function Score 35 (moderate dysfunction) 04/25/2023 PROMIS Pain Interference PROMIS PI Score 56 (mild) 04/25/2023 Patient-entered QuickDASH Laterality Right QuickDASH Score 36.36 04/25/2023 Depression Screening PHQ-2 Score Incomplete Patient Health Questionnaire-2 Score 0 Past Medical History: Diagnosis Date ??? Gallstones Past Surgical History: Procedure Laterality Date ??? CARPAL TUNNEL SURGERY Family history noncontributory Social History Socioeconomic History ??? Marital status: Spouse name: Not on file ??? Number [...] Social History Narrative ??? Not on file Social Determinants of Health Financial Resource Strain: Not on file Food Insecurity: Not on file Transportation Needs: Not on file Stress: Not on file Housing Stability: Not on file Current Outpatient Medications on File Prior to Visit Medication Sig Dispense Refill ??? hydroxychloroquine (Plaquenil) 200 MG tablet Take 1 (one) tablet by mouth once daily 90 tablet 1 ??? meloxicam (Mobic) 15 MG tablet Take 1 (one) tablet by mouth once daily 90 tablet 1 No current facility-administered medications on file prior to visit. No Known Allergies Review of Systems - 10 organ system review negative except for bilateral thumb pain. Physical Exam: Constitutional: Well developed, well nourished. [...] the forearm and hand with no rashes. Bilateral thumb: No visible wounds. Normal skin. Brisk capillary refill. + tenderness at the A1 agustin. + nodularity at the A1 agustin. - locking with active or passive thumb IP flexion. Radiographs: no images today Chart review: I reviewed the patient's chart including previous visits, radiographic imaging and all relevant exams. Assessment: 47 year old female with bilateral trigger thumb. Plan: I discussed the natural history of the disease and explained that after 3 steroid injections with no sustained resolution, we will need to resort to surgery - trigger thumb release. The patientwas agreeable with the treatment plan and elected to proceed with injections to the bilateral thumbA1 pulleys (#1). Future visit: no imaging. Sree Fairchild MD [facility] Orthopaedic Surgery Hipolito Cat MD, [facility] Hand, Shoulder and Elbow Greenskeeper SupervisorCandle Wrapper of Orthopaedic Surgery [facility] Orthopedics - [facility] Medicine - [address] [place] [address] For Appointments: [facility] [facility], [address] [facility] - [address] [place] [address], [address]- [place] For Appointments: For all clinical questions: RVENTIONAL NEURORADIOLOGIST Associated attestation - Hipolito Cat MD - 04/29/2023 7:32 AM INTERVENTIONAL NEURORADIOLOGIST The patient was seen and examined by me. I reviewed the resident's note and made the appropriate edits. I agree with the management plan. * Shena Terrazas RN - 04/27/2023 1:12 PM CST Pt presents with bilateral thumb trigger fingers worsening for the last 2 months Pt pain 5/10 RVENTIONAL NEURORADIOLOGIST documented in this encounter Procedure Notes * Hipolito Cat MD - 04/29/2023 7:32 AM CST Images from the original note [...] 0.25cc 1% lidocaine and 10 mg of Kenalog each. An appropriate band-aid was applied. The patient tolerated the procedure well. Complications: none Hipolito Cat MD, [facility] Hand, Shoulder and Elbow Greenskeeper SupervisorCandle Wrapper of Orthopaedic Surgery [facility] Orthopedics - [facility] Medicine - [address] [facility] For Appointments: [facility] [facility], [address] [facility] - [facility], [address]- [place] For Appointments: For all clinical questions: RVENTIONAL NEURORADIOLOGIST documented in this encounter Plan of Treatment Not on file documented as of this encounter Visit Diagnoses Diagnosis Trigger thumb of both hands- Primary documented in this encounter Administered Medications Inactive Administered Medications - up to 3 most recent administrations Medication Order MAR Action Action Date Dose Rate Site lidocaine PF (Xylocaine MPF) 1 % injection Infiltration, ONCE, 1 dose, On Sun04/27/23 at 1400 $ Given 04/27/2023 1:42 PM INTERVENTIONAL NEURORADIOLOGIST 0.25 mL Finger Right Hand lidocaine PF (Xylocaine MPF) 1 % injection Infiltration, ONCE, 1 dose, On Sun04/27/23 at 1400 $ Given 04/27/2023 1:42 PM INTERVENTIONAL NEURORADIOLOGIST 0.25 mL Finger Left Hand triamcinolone acetonide (Kenalog-40) injection 10 mg 10 mg, Infiltration, ONCE, 1 dose, On Sun04/27/23 at 1400, Shake well before using. $ Given 04/27/2023 1:43 PM INTERVENTIONAL NEURORADIOLOGIST 10 mg Finger Right Hand triamcinolone acetonide (Kenalog-40) injection 10 mg 10 mg, Infiltration, ONCE, 1 dose, On Sun04/27/23 at 1400, Shake well before using. $ Given 04/27/2023 1:42 PM INTERVENTIONAL NEURORADIOLOGIST 10 mg Finger Left Hand documented in this encounter Care Teams Delinquency Counselor Relationship Specialty Start Date End Date Siva Burgos MD [address] [place] [address] PCP - General Internal Medicine 07/06/22 documented as of this encounter
--- OUTSIDE RECORDS SUMMARY | 2024-06-23 18:20 | XMS_ITS | Encounter Summary ---
Author Organization [facility] Address [address] [place] [address] Care Team Providers Care Last Code Striper Name Role Phone Siva Burgos MD Primary Care Provider [phone] Encounter Details Date Type Department Care Team (Latest Contact Info) Description 04/27/2023 Travel Social History Tobacco Use Types Packs/Day [...] on filedocumented in this encounter Care Teams Last Code Striper Relationship Specialty Start Date End Date Siva Burgos MD [address] [place] [address] PCP - General Internal Medicine 07/06/22 documented as of this encounter
--- OUTSIDE RECORDS SUMMARY | 2024-06-23 18:20 | XMS_ITS | Encounter Summary ---
Author Organization [facility] Address [address] [facility] [place] [address] Care Team Providers Care Process Control Specialist Name Role Phone Siva Burgos MD Primary Care Provider Encounter Details Date Type Department Care Team (Late st Contact Info) Description 08/10/2022 Orders Only [facility] [address] [place] [address], [place] [address] Francisco Martino MD [address] [place] [address] [place] [address] Social History Tobacco Use Types Packs/Day Years [...] Procedure Name Priority Date/Time Associated Diagnosis Comments SCLERODERMA 70 (SCL) ANTIBODY 08/10/2022 7:39 AM MACHINING DEPARTMENT SUPERVISOR documented in this encounter Results * SCLERODERMA 70 (SCL) ANTIBODY (08/10/2022 7:39 AM MACHINING DEPARTMENT SUPERVISOR) SCL-70 Antibody <1.0 NEG <1.0 NEG [facility] Comment: Test Performed at: [employer] | [facility] [address] [place], [place] ??[address] LYUBOV RODGERS MD 08/10/2022 7:39 AM MACHINING DEPARTMENT SUPERVISOR 08/10/2022 7:45 AM MACHINING DEPARTMENT SUPERVISOR Francisco Martino MD LAB - CHEMISTRY [facility] Organization Address City/State/[facility] Co de Phone Number [facility] [address] [place] [address] documented in this encounter Visit Diagnoses Not on filedocumented in this encounter Care Teams Process Control Specialist Relationship Specialty Start Date End Date Siva Burgos MD [address] [place] [address] PCP - General Internal Medicine 07/06/22 documented as of this encounter"
--- OUTSIDE RECORDS SUMMARY | 2024-06-23 18:20 | XMS_ITS | Encounter Summary ---
Author Organization [facility] Address [address] [facility] [place] [address] Care Team Providers Care Meat Sales And Storage Manager Name Role Phone Siva Burgos MD Primary Care Provider Reason for Referral * OP/Amb RFL Auth (Routine) - Pending Review Specialty Diagnoses / Procedures Referred By Travis elizabeth Referred To Contact Diagnoses Trigger thumb, left thumb Procedures [place] INJ TENDON SHEATH/LIGAMENT/APONEUROSIS Hipolito Cat MD [address] [place] [id number] Referral ID Status Reason Start Date Expiration Date V isits Requested Visits Authorized [id number] Pending Review 02/29/2024 02/28/2025 1 1 Reason for Visit * Reason Comments Pain Hand Bilat Trigger thumb Encounter Details Date Type Department Care Team (Latest Contact Info) Description 02/29/2024 9:30 AM CDT Office Visit [facility] - Orthopedics [address] [place] [address], [place] [address] Hipolito Cat MD [address] [place] [phone] Stenosing tenosynovitis (Primary Dx); Trigger thumb, left thumb; Arthritis [...] this encounter Patient Instructions * Patient Instructions* Mika Leonard APRN-FLATWORK FOLDER - 02/29/2024 10:13 AM CDT Images from the original note were not included. Orthopaedic Hand, Shoulder and Elbow Surgery Visit Summary Thank you for coming in to see us today for your Right thumb. 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 We will call you in the next few days about the timing and location of the surgery and all other details. If you are taking any blood thinner (Aspirin, Plavix, Eliquis, Xarelto, Lovenox, Warfarin...) you need to arrange to stop taking it in a timely manner before the surgery as directed by you primary care provider. After the surgery you will need to keep the dressing clean and dry for 2 weeks until follow up. You will need hand therapy after the surgery. Follow up: two weeks after the surgery. For surgery scheduling concerns, please contact . Please contact our clinic call center at if you need to schedule or change an appointment. For medical emergencies please call 911. Please contact Yolis Ibarra RN: [phone] or through [employer] if you have any further questions or concerns. Thank you for trusting me and [facility] with your health. Sincerely, Hipolito Cat MD, [facility] Hand, Shoulder and Elbow Piling CutterTimber Appraiser of Orthopaedic Surgery [facility] - [facility] Medicine - [address] [facility] For Appointments: [facility]-[address] [facility], [address] [facility] For Appointments: For all clinical questions: documented in this encounter Progress Notes * Mika Leonard APRN-CNP - 02/29/2024 10:10 AM CDT Images from the original note were not included. 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 Last seen on 09/07/23 when her bilateral trigger thumbs and bilateral CMCJ were injected. She reports good relief for 3-4 months. Today she returns with left thumb locking, right base of thumb pain, and numbness and tingling to the right hand. She reports symtoms in her right hand are similar to the left prior to her left open carpal tunnel release. Last seen on 04/27/2023 when I gave her bilateral trigger thumb injections She reports that it resolved her triggering until recently when it came back on both side, and she also now reports that dorsal thumb pain bilaterally. She does report that the pain is associated with numbness over the thumbs that keeps her up at night. From last visit on 04/27/2023 They have [...] Patient Health Questionnaire-2 Score 0 Past Medical History Past Medical History: Diagnosis Date Gallstones Past Surgical History Past Surgical History: Procedure Laterality Date CARPAL TUNNEL SURGERY Family history noncontributory Social [...] Prior to Visit Medication Sig Dispense Refill hydroxychloroquine (Plaquenil) 200 MG tablet Take 1 (one) tablet by mouth once daily 90 tablet 1 meloxicam (Mobic) 15 MG tablet Take 1 (one) tablet by mouth once daily 90 tablet 1 No current facility-administered medications on file prior to visit. No Known Allergies Review of Systems - 10 organ system review negative except for bilateral thumb pain. Physical Exam: Constitutional: Well developed, well nourished. No acute distress. Lymphatic: No lymphedema is noted in the extremities. Psychiatric: The patient is cooperative and interacts appropriately during the exam. Alert and oriented x 3. Neurologic: no focal deficits over the upper extremity. Skin: The skin is intact over the forearm and hand with no rashes. left thumb: No visible wounds. Normal skin. Brisk capillary refill. + tenderness at the A1 agustin. + nodularity at the A1 agustin. + locking with active or passive thumb IP flexion. Right thumb: + Load and grind test + pain over palpation of CMCJ Radiographs: no images today Chart review: I reviewed the patient's chart including previous visits, radiographic imaging and all relevant exams. Assessment: 47 year old female with left trigger thumb and bilateral first CMC arthritis. Plan: I discussed the natural history of the disease and explained that after 3 steroid injections with no sustained resolution, we will need to resort to surgery - trigger thumb release. The patientwas agreeable with the treatment plan and elected to proceed with injections to the left thumb A1 pulleys (#3), and planning for surgical intervention for the right cmcj.. Left trigger thumb CSI (3rd- double dose given) Surgical intervention in the form of: Right first carpometacarpal joint arthroplasty, possible ligament reconstruction with free tendon graft. I discussed with the patient the risks and benefit of the surgery planned to be performed, and the risks include the risk of a surgical site infection, the risk of nerve injury and neuroma formation,the risk of vascular injury, the risk of tendon injury, the risk of hardware failure if used, the risks of stiffness and the risk of needing another surgery. The patient showed understanding and elect ed to proceed with surgery. Planning for eventual right CTR after right thumb arthroplasty. Future visit: no imaging. Hipolito Cat MD, [facility] Hand, Shoulder and Elbow Piling CutterTimber Appraiser of Orthopaedic Surgery [facility] - [facility] - [address] [place] [address] For Appointments: [facility]-[address] [facility], [address] [facility] - [address] [place] [address], [address]- [place] For Appointments: For all clinical questions: Associated attestation - Hipolito Cat MD - 02/29/2024 12:51 PM CDT The patient was seen and examined by me. I reviewed the Nurse Practitioner's note and made the appropriate edits. I agree with the management plan. * Inez Benavidez - 02/29/2024 9:52 AM CDT Numbness stiffness tingling and burning present documented in this encounter Procedure Notes * Hipolito Cat MD - 02/29/2024 10:19 AM CDT Trigger Finger Injection Procedure Note Pre-operative Diagnosis: Left Thumb Trigger finger(s). Post-operative Diagnosis: same Indications: same Procedure Details: Consent was obtained for the procedure. The volar area of the base of the Left Thumb was prepped with alcohol. Using a 27G needle, the flexor tendon sheath at the A1 agustin area was injected with 0.5cc 1% lidocaine and 20 mg of Kenalog. An appropriate band-aid was applied. The patient tolerated theprocedure well. Complications: none Hipolito Cat MD, [facility] Hand, Shoulder and Elbow Piling CutterTimber Appraiser of Orthopaedic Surgery [facility] - [facility] - [address] [place] [address] For Appointments: [facility]-[address] [facility], [address] [facility], [address]- [place] For Appointments: For all clinical questions: documented in this encounter Plan of Treatment Not on file documented as of this encounter Visit Diagnoses Diagnosis Stenosing tenosynovitis- Primary Synovitis and tenosynovitis, unspecified Trigger thumb, left thumb Arthritis of carpometacarpal (CMC) joint of right thumb documented in this encounter Administered Medications Inactive Administered Medications - up to 3 most recent administrations Medication Order MAR Action Action Date Dose Rate Site lidocaine PF (Xylocaine MPF) 1 % injection Infiltration, ONCE, 1 dose, On Sun02/29/24 at 1030 $ Given 02/29/2024 10:35 AM CDT 0.5 mL Finger Left Hand triamcinolone acetonide (Kenalog-40) injection 20 mg 20 mg (0.5 mL), Intra-Tendon Sheath , ONCE, 1 dose, On Sun02/29/24 at 1030, Shake well before using. $ Given 02/29/2024 10:36 AM CDT 20 mg Finger Left Hand documented in this encounter Care Teams Meat Sales And Storage Manager Relationship Specialty Start Date End Date Siva Burgos MD [address] [place] [address] PCP - General Internal Medicine 07/06/22 documented as of this encounter
--- OUTSIDE RECORDS SUMMARY | 2024-06-23 18:20 | XMS_ITS | Encounter Summary ---
Author Organization [facility] Address [address] [place] [address] Care Team Providers Care Care Team Coordinator Scheduler Name Role Phone Siva Burgos MD Primary Care Provider [phone] Encounter Details Date Type Department Care Team (Latest Contact Info) Description 08/07/2023 Travel Social History Tobacco Use Types Packs/Day [...] on filedocumented in this encounter Care Teams Care Team Coordinator Scheduler Relationship Specialty Start Date End Date Siva Burgos MD [address] [place] [address] PCP - General Internal Medicine 07/06/22 documented as of this encounter
--- OUTSIDE RECORDS SUMMARY | 2024-06-23 18:20 | XMS_ITS | Encounter Summary ---
Author Organization [facility] Address [address] [facility] [place] [address] Care Team Providers Care Activity Leader Name Role Phone Siva Burgos MD Primary Care Provider Reason for Visit * Radiology Services (Routine) - Closed Specialty Diagnoses / Procedures Referred By Travis elizabeth Referred To Contact MRI Diagnoses Achilles tendinosis of left lower extremity Procedures MRI ANKLE LEFT WWO CONTRAST Francisco Martino MD [address] [facility] 2L [place] [address] [facility] Mri [address] [place] [address] Referral ID Status Reason Start Date Expiration Date Visits Re quested Visits Authorized [id number] Closed 07/13/2022 07/13/2023 1 1 Encounter Details Date Type Department Care Team (Latest Contact Info) Description 07/23/2022 8:12 AM HIGH DENSITY PRESS LABORER - 07/23/2022 11:59 PM [facility] Hospital Encounter [facility] MRI [address] [place] [address] Francisco Martino MD [address] [facility] [address] [place] [address] Discharge Disposition: Home or Self [...] Coronavirus/COVID-19? No / Unsure 07/06/2022 9:18 AM HIGH DENSITY PRESS LABORER documented as of this encounter Medications at Time of Discharge Medication Sig Dispensed Refills Start Date End Date ibuprofen (Motrin) 200 MG tablet Take by mouth every 6 hours as needed 08/08/2022 meloxicam (Mobic) 7.5 MG tablet Take 1 (one) tablet by mouth once daily 01/12/2022 08/08/2022 documented as of this encounter Plan of Treatment Not on file documented as of this encounter Procedures Procedure Name Priority Date/Time Associated Diagnosis Comments MRI ANKLE LEFT WWO CONTRAST Routine 07/23/2022 10:49 AM HIGH DENSITY PRESS LABORER Achilles tendinosis of left lower extremity CREATININE - POCT INTERFACED Routine 07/23/2022 9:25 AM HIGH DENSITY PRESS LABORER documented in this encounter Results * MRI ANKLE LEFT WWO CONTRAST (07/23/2022 10:49 AM HIGH DENSITY PRESS LABORER) Anatomical Region Laterality Modality Ankle / Foot, Lower Extremity Ma gnetic Resonance 07/24/2022 8:02 AM HIGH DENSITY PRESS LABORER Impressions 07/24/2022 8:26 AM HIGH DENSITY PRESS LABORER IMPRESSION: 1. The Achilles tendon is normal. 2. 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 3. A 3 mm cystic osteochondral lesion at the lateral aspect of the talar dome. 4. No evidence of synovitis or tenosynovitis. > Interpreting Provider: Yandel Crawford MD on 07/24/2022 8:26 AM Narrative 07/24/2022 8:26 AM HIGH DENSITY PRESS LABORER PROCEDURE: ??MRI ANKLE LEFT WWO CONTRAST, DATE/TIME OF EXAM: ??07/23/2022 10:52 AM, LOCATION ??[facility] INDICATION: M67.88: Achilles tendinosis of left [...] CONTRAST, DATE/TIME OF EXAM: 0:52 AM, LOCATION [facility] INDICATION: M67.88: Achilles tendinosis of left [...] CREATININE - POCT INTERFACED (07/23/2022 9:25 AM HIGH DENSITY PRESS LABORER) Creatinine POCT 0.75 0.30 - 1.30 mg/dL 07/23/2022 9:27 AM HIGH DENSITY PRESS LABORER [facility] eGFR >90 >90 mL/min/1.7 3 m2 07/23/2022 9:27 AM HIGH DENSITY PRESS LABORER [facility] Blood BLOOD SPECIMEN / Unknown 07/23/2022 9:25 AM HIGH DENSITY PRESS LABORER 07/23/2022 9:27 AM HIGH DENSITY PRESS LABORER Francisco Martino MD LAB - POINT OF CARE ORDERABLES Performing Organization Address City/State/[facility] Co de Phone Number [address] [address], [facility] [phone] documented in this encounter Visit Diagnoses Diagnosis Achilles tendinosis of left lower extremity documented in this encounter Administered Medications Inactive Administered Medications - up to 3 most recent administrations Medication Order MAR Action Action Date Dose Rate Site gadobutrol (Gadavist) injection Intravenous, CONTRAST ONCE, Starting on 07/23/22 at 0957, Until 07/24/22 at 0120 $ Given - Contrast 07/23/2022 10:51 AM HIGH DENSITY PRESS LABORER 6 mL Right Arm documented in this encounter Care Teams Activity Leader Relationship Specialty Start Date End Date Siva Burgos MD [address] [place] [address] PCP - General Internal Medicine 07/06/22 documented as of this encounter
--- OUTSIDE RECORDS SUMMARY | 2024-06-23 18:20 | XMS_ITS | Encounter Summary ---
Author Organization [facility] Address [address] [place] [address] Care Team Providers Care Pulpwood Contractor Name Role Phone Siva Burgos MD Primary Care Provider Reason for Visit * Auth/Cert (Routine) Specialty Diagnoses / Procedures Referred By Travis elizabeth Referred To Contact Diagnoses Diagnosis unknown Diagnosis unknown [R69] Procedures IA REPAIR INTERCARP/CARP-METACARP JT IA REPAIR INTERCARP/CARP-METACARP JT IA TRANSPLANT/GRAFT HAND TENDON ARTHROPLASTY / INTERPOSITION CARPOMETACARPAL (CMC) Referral ID Status Reason Start Date Expiration Date Visits Re quested Visits Authorized [id number] 1 1 Encounter Details Date Type Department Care Team (Latest Contact Info) Description 03/26/2024 10:14 AM CDT - 03/26/2024 4:30 PM CDT Hospital Encounter [facility] PERIOPERATIVE [address] [place] [address] Hipolito Cat MD [facility] [phone] Surgery General Discharge Disposition: Home or Self Care Social [...] HYDROcodone-acetaminophen 5-325 MG tablet Commonly known as: Hobbs Quantity Dispensed: 12 tablet Take 1 (one) [...] Grams (4000 mg) / 24 hours. Wero Deutschar * This list has 2 medication(s) that [...] cast cover (from you local pharmacy or [employer]) to avoid getting the splint wet when [...] clinic appointment. For medical emergencies please call [phone]. Please contact Yolis Ibarra RN: [phone] or through [email or web address] if you have any further questions or concerns. Hipolito Cat MD, [facility] Hand, Shoulder and Elbow Valve Repairer [employer] Planner of Orthopaedic Surgery [facility] Orthopedics - [facility] for [facility] - [address] [place] [address] For Appointments: [facility] [facility], [address] [facility] For Appointments: For all clinical questions: Narcotic Medication Patient Information You are being discharged/sent home with a prescription(s) for narcotic pain medicine (examples: Oxycodone, Hydrocodone, Roxicodone, Percocet, Hobbs). Our goal is to control your pain, [...] Tylenol. - Many pain medicines (such as Hobbs or Percocet) also contain Tylenol/Acetaminophen (this is [...] cast cover (from you local pharmacy or [employer]) to avoid getting the splint wet when [...] call 911. Please contact Yolis Ibarra RN: [phone] or through [employer] if you have any further questions or concerns. Hipolito Cat MD, [facility] Hand, Shoulder and Elbow Valve Repairer [employer] Planner of Orthopaedic Surgery [facility] Orthopedics - [facility] Medicine - [address] [place] [address] For Appointments: [facility] [facility], [address] [facility] For Appointments: For all clinical questions: documented [...] once daily as needed 04/26/2023 HYDROcodone-acetamino phen (Hobbs) 5-325 MG tabletIndications:Charly n Take 1 (one) [...] input(s): INR , PTT in the last [id number] hours. Radiographs and EMG Studies Xray right [...] Role: * Hipolito Cat MD - Primary Director Of Industrial Relations(s): [place] Anesthesia Type: MAC Complications: none Findings: Right CMC arthritis EBL: minimal blood loss Urine Output : See anaesthesia IV Fluid Intake: see anaesthesia Drains: * No LDAs found * Specimen(s): * No specimens in log * Implant(s): Implant Name Type Inv. Item Serial No. Citrus Fruit Packer Lot No. [id number] No. Used Action Sys Intnl Fx Fiberlock Fiberlock Spns Sys Intnl Fx Fiberlock Fiberlock Spns [employer] [id number] Right 1 Implanted Wero Haynes MD * Operative - Hipolito Cat MD - 03/26/2024 1:05 PM CDT Images from the original note were not included. [facility] Orthopaedic Hand, Shoulder and Elbow Surgery Operative [...] PACU in good condition. Hipolito Cat MD, [facility] Hand, Shoulder and Elbow Valve Repairer [employer] Planner of Orthopaedic Surgery [facility] Orthopedics - [facility] - [address] [place] [address] For Appointments: [facility] [facility], [address] [facility] For Appointments: For all clinical questions: documented [...] SURGERY Routine 03/26/2024 2:50 PM CDT Pain IA REPAIR INTERCARP/CARP-ME TACARP JT 03/26/2024 12:30 PM CDT Diagnosis unknown Special Needs NEEDS MINI C-ARM, MCGLAMRY RETRACTORS, ARTHREX--REP. (MEKA # [phone]) NOTIFIED PER OFFICE (CHIQUILA)--03/14 KW / FREE TENDON GRAFT IS FROM THE PATIENT PER SURGEON PER OFFICE (CHIQUILA)--03/14 KW documented in this encounter Results * [...] Vilma Surgery (03/26/2024 2:50 PM CDT) Narrative [facility] RADIOLOGY - 03/26/2024 3:05 PM CDT For details of this study, please see the providers note. Hipolito Cat MD FLUOROSCOPY ORDERABL ES [facility] RADIOLOGY [address] [place] [address] documented in this encounter Visit Diagnoses Diagnosis [...] of normal saline every 8 hours., Pre-op acetaminophen (Tylenol) tablet 1,000 mg 1,000 mg, [...] New Bag/Syri nge - Provider: Simi Vasquez APRN-TK) lidocaine PF (Xylocaine MPF) 1 % injection [...] TIMES DAILY, 7 doses, First dose on 03/26/24 at 1030, Last dose on 03/29/24 at 0900, Patient has a patch to [...] Pre-op documented in this encounter Care Teams Pulpwood Contractor Relationship Specialty Start Date End Date Siva Burgos MD [address] [place] [address] PCP - General Internal Medicine 07/06/22 documented as of this encounter
--- OUTSIDE RECORDS SUMMARY | 2024-06-23 18:20 | XMS_ITS | Encounter Summary ---
Author Organization [facility] Health Address [address] [place] [address] Care Team Providers Care Manager Library Name Role Phone Siva Burgso MD Primary Care Provider [phone] Encounter Details Date Type Department Care Team (Latest Contact Info) Description 10/13/2022 Travel Social History Tobacco Use Types Packs/Day [...] on filedocumented in this encounter Care Teams Manager Library Relationship Specialty Start Date End Date Siva Burgos MD [address] [place] [address] PCP - General Internal Medicine 07/06/22 documented as of this encounter
--- OUTSIDE RECORDS SUMMARY | 2024-06-23 18:20 | XMS_ITS | Encounter Summary ---
Author Organization [facility] Address [address] [facility] [place] [address] Care Team Providers Care It Audit Manager Name Role Phone Siva Burgos MD Primary Care Provider Encounter Details Date Type Department Care Team (Latest Contact Info) Description 07/06/2022 9:20 AM NIGHT TIME BABYSITTER - 07/06/2022 11:59 PM NIGHT TIME BABYSITTER Hospital Encounter [facility] DIAGNOSTIC RAD OP [address] [place] [address] Francisco Martino MD [address] [address] Discharge Disposition: Home or Self [...] Coronavirus/COVID-19? No / Unsure 07/06/2022 9:18 AM NIGHT TIME BABYSITTER documented as of this encounter Medications at [...] Procedure Name Priority Date/Time Associated Diagnosis Comments DNA ANTIBODY DS CRITHIDIA W/REFLEX TITER 07/06/2022 10:32 AM NIGHT TIME BABYSITTER LIAM BLOOD TITER 07/06/2022 10:32 AM NIGHT TIME BABYSITTER XR HAND RIGHT 3VW OR MORE Routine 07/06/2022 9:42 AM NIGHT TIME BABYSITTER Polyarthralgia XR HAND LEFT 3VW OR MORE Routine 07/06/2022 9:42 AM NIGHT TIME BABYSITTER Polyarthralgia XR WRIST RIGHT 3VW OR MORE Routine 07/06/2022 9:42 AM NIGHT TIME BABYSITTER Polyarthralgia XR WRIST LEFT 3VW OR MORE Routine 07/06/2022 9:42 AM NIGHT TIME BABYSITTER Polyarthralgia XR SI JOINTS 3VW OR MORE Routine 07/06/2022 9:42 AM NIGHT TIME BABYSITTER Polyarthralgia documented in this encounter Results * (ABNORMAL) LIAM BLOOD TITER (07/06/2022 10:32 AM NIGHT TIME BABYSITTER) LIAM 1:320(H) titer [facility]ST Comment: ?Reference Range ?<1:40 ?Negative ?1:40-1:80 ?Low Antibody Level ?>1:80 ?Elevated Antibody Level LIAM Pattern Nuclear, Centromere (A) [facility] Comment: Centromere pattern is associated with limited cutaneous systemic sclerosis, CREST (Calcinosis, Raynaud's, Esophageal dysmotility, Sclerodactyly, Telangiectasia), primary biliary cholangitis (PBC), and other autoimmune diseases. AC-3: Centromere International Consensus on LIAM Patterns (https://doi.org/10.1515/gzpy-3420-5131) Test Performed at: [facility] [address] [place], [place] ??[address] SKY GODINEZ DO,MPH 07/06/2022 10:3 2 AM NIGHT TIME BABYSITTER 07/06/2022 10:37 AM NIGHT TIME BABYSITTER Francisco Martino MD LAB - CHEMISTRY ORDE RABHERNANDEZ Performing Organization Address [facility] Co de Phone Number [facility] [address] [place] [address] * DNA ANTIBODY DS CRITHIDIA W/REFLEX TITER (07/06/2022 10:32 AM NIGHT TIME BABYSITTER) dsDNA Antibody Crithidia IFA NEGATIVE NEGATIVE [facility] Comment: Test Performed at: [facility] [address] ??[address] CARLOS COLON MD 07/06/2022 10:3 2 AM NIGHT TIME BABYSITTER 07/06/2022 10:37 AM NIGHT TIME BABYSITTER Francisco Martino MD LAB - HEMATOLOGY ORD ERABLES Performing Organization Address [facility] Co de Phone Number [facility] [address] [place] [address] * XR SI JOINTS 3VW OR MORE (07/06/2022 9:42 AM NIGHT TIME BABYSITTER) Anatomical Region Laterality Modality Pelvis, Lower Extremity Radiogra phic Imaging 07/06/2022 9:53 AM NIGHT TIME BABYSITTER Impressions 07/06/2022 10:38 AM NIGHT TIME BABYSITTER IMPRESSION: Right hand: 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 Right wrist: No acute fracture, dislocation or significant arthritis. Left hand: Mild osteoarthritis of the second through fourth distal interphalangeal joints. Left wrist: No acute fracture, dislocation or significant arthritis. Sacroiliac joints: No acute fracture, dislocation or significant arthritis. Report dictated by Ad Real MD (vice president underwriting). I, Alvarez Lockhart MD have personally reviewed and interpreted this examination/study. > Interpreting Provider: Alvarez Lockhart MD on 07/06/2022 10:38 AM Narrative 07/06/2022 10:38 AM NIGHT TIME BABYSITTER PROCEDURE: ??XR HAND RIGHT 3VW OR MORE, XR SI JOINTS 3VW OR MORE, XR WRIST RIGHT 3VW OR MORE, XR WRIST LEFT 3VW OR MORE, XR HAND LEFT 3VW OR MORE, DATE/TIME OF EXAM: ??07/06/2022 9:42 AM, LOCATION ??[facility] INDICATION: M25.50: Polyarthralgia COMPARISON: None. FINDINGS: Right [...] DATE/TIME OF EXAM: 07/06/2022 9:42 AM, LOCATION [facility] INDICATION: M25.50: Polyarthralgia COMPARISON: None. FINDINGS: Right [...] dictated by Ad Real MD (vice president underwriting). I, Alvarez Lockhart MD have personally reviewed and interpreted this examination/study. 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 Right wrist: No acute fracture, dislocation or significant arthritis. Left hand: Mild osteoarthritis of the second through fourth distal interphalangeal joints. Left wrist: No acute fracture, dislocation or significant arthritis. Sacroiliac joints: No acute fracture, dislocation or significant arthritis. Report dictated by Ad Real MD (vice president underwriting). I, Alvarez Lockhart MD have personally reviewed and interpreted this examination/study. > Interpreting Provider: Alvarez Lockhart MD on 07/06/2022 10:38 AM Narrative 07/06/2022 10:38 AM NIGHT TIME BABYSITTER PROCEDURE: ??XR HAND RIGHT 3VW OR MORE, XR SI JOINTS 3VW OR MORE, XR WRIST RIGHT 3VW OR MORE, XR WRIST LEFT 3VW OR MORE, XR HAND LEFT 3VW OR MORE, DATE/TIME OF EXAM: ??07/06/2022 9:42 AM, LOCATION ??[facility] INDICATION: M25.50: Polyarthralgia COMPARISON: None. FINDINGS: Right [...] DATE/TIME OF EXAM: 07/06/2022 9:42 AM, LOCATION [facility] INDICATION: M25.50: Polyarthralgia COMPARISON: None. FINDINGS: Right [...] dictated by Ad Real MD (vice president underwriting). Alvarez Romano MD have personally reviewed and interpreted this examination/study. 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 Right wrist: No acute fracture, dislocation or significant arthritis. Left hand: Mild osteoarthritis of the second through fourth distal interphalangeal joints. Left wrist: No acute fracture, dislocation or significant arthritis. Sacroiliac joints: No acute fracture, dislocation or significant arthritis. Report dictated by Ad Real MD (vice president underwriting). Alvarez Romano MD have personally reviewed and interpreted this examination/study. > Interpreting Provider: Alvarez Lockhart MD on 07/06/2022 10:38 AM Narrative 07/06/2022 10:38 AM NIGHT TIME BABYSITTER PROCEDURE: ??XR HAND RIGHT 3VW OR MORE, XR SI JOINTS 3VW OR MORE, XR WRIST RIGHT 3VW OR MORE, XR WRIST LEFT 3VW OR MORE, XR HAND LEFT 3VW OR MORE, DATE/TIME OF EXAM: ??07/06/2022 9:42 AM, LOCATION ??[facility] INDICATION: M25.50: Polyarthralgia COMPARISON: None. FINDINGS: Right [...] DATE/TIME OF EXAM: 07/06/2022 9:42 AM, LOCATION [facility] INDICATION: M25.50: Polyarthralgia COMPARISON: None. FINDINGS: Right [...] dictated by Ad Real MD (vice president underwriting). Alvarez Romano MD have personally reviewed and interpreted this examination/study. 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 Right wrist: No acute fracture, dislocation or significant arthritis. Left hand: Mild osteoarthritis of the second through fourth distal interphalangeal joints. Left wrist: No acute fracture, dislocation or significant arthritis. Sacroiliac joints: No acute fracture, dislocation or significant arthritis. Report dictated by Ad Real MD (vice president underwriting). Alvarez Romano MD have personally reviewed and interpreted this examination/study. > Interpreting Provider: Alvarez Lockhart MD on 07/06/2022 10:38 AM Narrative 07/06/2022 10:38 AM NIGHT TIME BABYSITTER PROCEDURE: ??XR HAND RIGHT 3VW OR MORE, XR SI JOINTS 3VW OR MORE, XR WRIST RIGHT 3VW OR MORE, XR WRIST LEFT 3VW OR MORE, XR HAND LEFT 3VW OR MORE, DATE/TIME OF EXAM: ??07/06/2022 9:42 AM, LOCATION ??[facility] INDICATION: M25.50: Polyarthralgia COMPARISON: None. FINDINGS: Right [...] DATE/TIME OF EXAM: 07/06/2022 9:42 AM, LOCATION [facility] INDICATION: M25.50: Polyarthralgia COMPARISON: None. FINDINGS: Right [...] dictated by Ad Real MD (vice president underwriting). I, Alvarez Lockhart MD have personally reviewed and interpreted this examination/study. 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 Right wrist: No acute fracture, dislocation or significant arthritis. Left hand: Mild osteoarthritis of the second through fourth distal interphalangeal joints. Left wrist: No acute fracture, dislocation or significant arthritis. Sacroiliac joints: No acute fracture, dislocation or significant arthritis. Report dictated by Ad Real MD (vice president underwriting). IAlvarez MD have personally reviewed and interpreted this examination/study. > Interpreting Provider: Alvarez Lockhart MD on 07/06/2022 10:38 AM Narrative 07/06/2022 10:38 AM NIGHT TIME BABYSITTER PROCEDURE: ??XR HAND RIGHT 3VW OR MORE, XR SI JOINTS 3VW OR MORE, XR WRIST RIGHT 3VW OR MORE, XR WRIST LEFT 3VW OR MORE, XR HAND LEFT 3VW OR MORE, DATE/TIME OF EXAM: ??07/06/2022 9:42 AM, LOCATION ??[facility] INDICATION: M25.50: Polyarthralgia COMPARISON: None. FINDINGS: Right [...] DATE/TIME OF EXAM: 07/06/2022 9:42 AM, LOCATION [facility] INDICATION: M25.50: Polyarthralgia COMPARISON: None. FINDINGS: Right [...] dictated by Ad Real MD (vice president underwriting). I, Alvarez Lockhart MD have personally reviewed and interpreted this examination/study. > Interpreting Provider: Alvarez Lockhart MD on 0:38 AM Francisco Martino MD DIAGNOSTIC IMAGING O RDERABLES documented in this encounter Visit Diagnoses Diagnosis Polyarthralgia Pain in joint, multiple sites documented in this encounter Care Teams It Audit Manager Relationship Specialty Start Date End Date Siva Burgos MD [address] [place] [address] PCP - General Internal Medicine 07/06/22 documented as of this encounter
--- OUTSIDE RECORDS SUMMARY | 2024-06-23 18:20 | XMS_ITS | Encounter Summary ---
Author Organization [facility] Health Address [address] [place] [address] Care Team Providers Care Division Commander Name Role Phone Siva Burgos MD Primary Care Provider [phone] Encounter Details Date Type Department Care Team (Latest Contact Info) Description 04/09/2023 Travel Social History Tobacco Use Types Packs/Day [...] on filedocumented in this encounter Care Teams Division Commander Relationship Specialty Start Date End Date Siva Burgos MD [address] [place] [address] PCP - General Internal Medicine 07/06/22 documented as of this encounter
--- OUTSIDE RECORDS SUMMARY | 2024-06-23 18:20 | XMS_ITS | Encounter Summary ---
Author Organization [facility] Address [address] [facility] [place] [address] Care Team Providers Care Sourcing Internship Name Role Phone Siva Burgos MD Primary Care Provider Encounter Details Date Type Department Care Team (Late st Contact Info) Description 08/15/2022 Orders Only [facility] [address] [place] [address], [place] [address] Francisco Martino MD [address] [place] [address] 2L [place] [address] Scleroderma (HCC); CREST syndrome (HCC) Social History Tobacco Use Types Packs/Day Years [...] Procedure Name Priority Date/Time Associated Diagnosis Comments ECHO COMPLETE Routine 10/13/2022 9:49 AM CDT Scleroderma (HCC) CREST syndrome (HCC) documented in this encounter Results * ECHO COMPLETE (10/13/2022 9:49 AM CDT) Anatomical Region Laterality Modality Chest Echo 10/13/2022 9:07 AM CDT Narrative Procedure Note Annita Roe MD - 10/13/2022 Francisco Martino MD ECHOCARDIOGRAPHY RAD IANT documented in this encounter Visit Diagnoses Diagnosis Scleroderma (HCC) Systemic sclerosis CREST syndrome (HCC) Systemic sclerosis documented in this encounter Care Teams Sourcing Internship Relationship Specialty Start Date End Date Siva Burgos MD [address] [place] [address] PCP - General Internal Medicine 07/06/22 documented as of this encounter
--- OUTSIDE RECORDS SUMMARY | 2024-06-23 18:20 | XMS_ITS | Encounter Summary ---
Author Organization [facility] Address [address] [place] [address] Care Team Providers Care Hotel Housekeeper Name Role Phone Siva Burgos MD Primary Care Provider Reason for Visit * Radiology Services (Routine) - Closed Specialty Diagnoses / Procedures Referred By Travis t Referred To Contact Echosonography Diagnoses Scleroderma (HCC) CREST syndrome (HCC) Procedures ECHO COMPLETE Francisco Martino MD [address] [facility] 2L [place] [address] [facility] Echo [address] [place] [address] Referral ID Status Reason Start Date Expiration Date Visits Re quested Visits Authorized [id number] Closed 09/26/2022 09/26/2023 1 1 Encounter Details Date Type Department Care Team (Latest Contact Info) Description 10/13/2022 8:57 AM CDT - 10/13/2022 9:05 AM CDT Hospital Encounter [facility] ECHO [address] [place] [address] Francisco Martino MD [address] [facility] 2L [place] [address] Discharge Disposition: Home or Self [...] 1 08/08/2022 documented as of this encounter Plan [...] IANT documented in this encounter Visit Diagnoses Not on filedocumented in this encounter Care Teams Hotel Housekeeper Relationship Specialty Start Date End Date iSva Burgos MD [address] [place] [address] PCP - General Internal Medicine 07/06/22 documented as of this encounter
--- OUTSIDE RECORDS SUMMARY | 2024-06-23 18:20 | XMS_ITS | Encounter Summary ---
Author Organization [facility] Address [address] [facility] [address] [place] [address] Care Team Providers Care Internet Network Specialist Name Role Phone Siva Burgos MD Primary Care Provider [phone] Encounter Details Date Type Department Care Team (Latest Contact Info) Description 07/06/2022 Travel Social History Tobacco Use Types Packs/Day [...] Coronavirus/COVID-19? No / Unsure 07/06/2022 9:18 AM CISCO CONSULTANT documented as of this encounter Plan of Treatment Not on file documented as of this encounter Visit Diagnoses Not on filedocumented in this encounter Care Teams Internet Network Specialist Relationship Specialty Start Date End Date Siva Burgos MD [address] [place] [address] PCP - General Internal Medicine 07/06/22 documented as of this encounter
--- OUTSIDE RECORDS SUMMARY | 2024-06-23 18:20 | XMS_ITS | Encounter Summary ---
Author Organization [facility] Address [address] [facility] [address] [place] [address] Care Team Providers Care Hand Woven Carpet And Rug Mender Name Role Phone Siva Burgos MD Primary Care Provider [phone] [phone] Encounter Details Date Type Department Care Team (Latest Contact Info) Description 06/13/2023 Travel Social History Tobacco Use Types Packs/Day [...] on filedocumented in this encounter Care Teams Hand Woven Carpet And Rug Mender Relationship Specialty Start Date End Date Siva Burgos MD [address] [place] [address] PCP - General Internal Medicine 07/06/22 documented as of this encounter
--- OUTSIDE RECORDS SUMMARY | 2024-06-23 18:20 | XMS_ITS | Encounter Summary ---
Author Organization [facility] Address [address] [facility] [place] [address] Care Team Providers Care Dormitory Keeper Name Role Phone Siva Burgos MD Primary Care Provider Reason for Referral * Procedure (Routine) - Closed Specialty Diagnoses / Procedures Referred By Travis elizabeth Referred To Contact Pulmonary Disease Diagnoses Scleroderma (HCC) CREST syndrome (HCC) Procedures Complete PFT [facility] [place] [address] [place] [address] 2[address] [place] [address] [facility] Pft [address] [place] [address] Referral ID Status Reason Start Date Expiration Date Visits Re quested Visits Authorized [id number] Closed 08/15/2022 08/15/2023 1 1 ERATURE REGULATOR PYROMETER * Radiology Services (Routine) - Closed Specialty Diagnoses / Procedures Referred By Travis elizabeth Referred To Contact Echosonography Diagnoses Scleroderma (HCC) CREST syndrome (HCC) Procedures ECHO COMPLETE Francisco Martino MD [address] [facility] 2L [place] [address] [facility] Echo [address] [place] [address] Referral ID Status Reason Start Date Expiration Date Visits Re quested Visits Authorized [id number] Closed 09/26/2022 09/26/2023 1 1 ERATURE REGULATOR PYROMETER Encounter Details Date Type Department Care Team (Late st Contact Info) Description 08/15/2022 Orders Only [facility] [address] [place] [address], [place] [address] Francisco Martino MD [address] 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
--- OUTSIDE RECORDS SUMMARY | 2024-06-23 18:21 | XMS_ITS | Encounter Summary ---
Author Organization [facility] Address [address] [place] [address] Phone Care Team Providers Care Equipment Maintenance Engineer Name Role Phone Siva Burgos MD Primary Care Provider [phone] [phone] Ananth Green DPMichelle Unavailable Unavailable Fidencio Zimmer MD Unavailable Reason for Visit * Reason Onset Date Comments Results 02/19/2024 Encounter Details Date Type Department Care Team (Late st Contact Info) Description 02/19/2024 Telephone [facility] - [facility] - [place] [address] [address] Siva Burgos MD [address] [place] [address] Results Social History Tobacco Use Types Packs/Day Years Used Date Smoking Tobacco: Never Smokeless Tobacco: Never Alcohol Use Standard Drinks/Week Comments Not Currently 0 (1 standard drink = 0.6 oz pur e alcohol) Rare [facility] Utilities Answer Date Recorded In the past 12 months has [employer], gas, oil, or water company threatened to shut off services in your home? Patient declined 02/12/2024 Social Connection and Isolation Panel [NHANES] A nswer Date Recorded In a typical week, how many times do you talk on the phone with family, friends, or neighbors? Patient declined 02/12/2024 How often do you get togethe r with friends or relatives? Patient declined 02/12/2024 How often do you attend yarsani or hoahaoism serv ices? Patient declined 02/12/2024 Do you belong to any clubs o r organizations such as yarsani groups, unions, fraternal or athletic groups, or school groups? Patient declined 02/12/2024 How often do you attend meet ings of the clubs or organizations you belong to? Patient declined 02/12/2024 Are you , , di vorced, , never , or living with a partner? 02/12/2024 AUDIT-C Answer Date Recorded Q1: How often do you have a drink containing alc ohol? Patient declined 02/12/2024 Q2: How many drinks containi ng alcohol do you have on a typical day when you are drinking? Patient declined 02/12/2024 Q3: How often do you have si x or more drinks on one occasion? Patient declined 02/12/2024 Overall Financial Resource Strain (CARDIA) Answe r Date Recorded How hard is it for you to pa y for the very basics like food, housing, medical care, and heating? Patient declined 02/12/2024 PHQ-2 Answer Date Recorded Total Score - Questions 1-9 0 01/17 [facility] - Occupational Stress Questionnaire Answer Date Recorded Do you feel stress - tense, restless, nervous, or anxious, or unable to sleep at night because your mind is troubled all the time - these days? Patient declined 02/12/2024 Exercise Vital Sign Answer Date Recorde d On average, how many days pe r week do you engage in moderate to strenuous exercise (like a brisk walk)? Patient declined On average, how many minutes do you engage in exercise at this level? Patient declined 02/12/2024 Hunger Vital Sign Answer Date Recorded Within the past 12 months, y ou worried that your food would run out before you got the money to buy more. Patient declined Within the past 12 months, t he food you bought just didn't last and you didn't have money to get more. Patient declined PRAPARE - Transportation Answer Date Re corded In the past 12 months, has l ack of transportation kept you from medical appointments or from getting medications? Patient declined 02/12/2024 In the past 12 months, has l ack of transportation kept you from meetings, work, or from getting things needed for daily living? Patient declined 02/12/2024 Housing Stability Vital Sign Answer Lio e Recorded In the last 12 months, was t here a time when you were not able to pay the mortgage or rent on time? No 08/03/2023 In the last 12 months, how many places have you lived? 1 08/03/2023 In the last 12 months, was t here a time when you did not have a steady place to sleep or slept in a correction (including now)? No 08/03/2023 Housing Stability Vital Sign Answer Lio e Recorded In the last 12 months, was t here a time when you were not able to pay the mortgage or rent on time? Patient declined 02/12/20 24 Number of Times Moved in the Last Year Not on fi le 02/12/2024 At any time in the past 12 m [facility], were you homeless or living in a correction (including now)? No 02/12/2024 Education Answer Date Recorded What is the highest level of school you have completed or the highest degree you have received? Associate degree: occupational, technical, or vocational program 04/18/2023 Sexually Active Control Partners Comments Yes Male Comments No Sex and Gender Information Value Date Recorded Sex Assigned at Female 01/05/2024 10:39 PM CDT Legal Sex Female 10:01 PM CDT Gender Identity Female 01/05/2024 10:39 PM CDT Sexual Orientation Not on file documented as of this encounter Miscellaneous Notes * Telephone Encounter - Megan Wise RN - 02/19/2024 3:42 PM CDT ----- Message from Vijay Burgos sent at 02/19/2024 3:28 PM CDT ----- Mammogram-negative for malignancy. Repeat mammogram in 1 year. documented in this encounter Plan of Treatment Not on file documented as of this encounter Visit Diagnoses Not on filedocumented in this encounter Additional Health Concerns Assessment Noted Time PHQ-9 Depression Total Score: 0 02/13/20 11:27 AM CDT documented as of this encounter Care Teams Equipment Maintenance Engineer Relationship Specialty Start Date End Date Siva Burgos MD [address] [place] [address] PCP - General Internal Medicine 02/26/20 Ananth Green DPM Podiatry 04/05/22 Fidencio Zimmer MD [address] [address] Consulting Physician Colon and Rectal Surgery 08/08/23 documented as of this encounter
--- OUTSIDE RECORDS SUMMARY | 2024-06-23 18:21 | XMS_ITS | Encounter Summary ---
Author Organization [employer] Care Team Providers Care Manager Program Management Name Role Phone Siva Burgos MD Primary Care Provider Ananth Green DPM Unavailable Unavailable Encounter Details Date Type Department Care Team (Latest Contact Info) Description 04/18/2023 Travel Social History Tobacco Use Types Packs/Day Years Used Date Smoking Tobacco: Never Smokeless Tobacco: Never Alcohol Use Standard Drinks/Week Comments Yes 0 (1 standard drink = 0.6 oz pur e alcohol) Rare PHQ-2 Answer Date Recorded Total Score - Questions 1-9 2 06/2022 Education Answer Date Recorded What is the highest level of school you have completed or the highest degree you have received? Associate degree: occupational, technical, or vocational program 04/18/2023 Sexually Active Control Partners Comments Yes Comments No Sex and Gender Information Value Date Recorded Sex Assigned at Female 01/05/2024 10:39 PM CDT Legal Sex Female 10:01 PM CDT Gender Identity Female 01/05/2024 10:39 PM CDT Sexual Orientation Not on file COVID-19 Exposure Response Date Recorded In the last 10 days, have yo u been in contact with someone who was confirmed or suspected to have Coronavirus/COVID-19? No / Unsure 04/18/2023 1:05 PM CDT documented as of this encounter Functional Status * Question Answer Date of Assessment Author Little interest or pleasure in doing things Not at all 04/18/2023 1:16 PM CDT Kym Joshua Feeling down, depressed, or hopeless Not at all 06/2022 1:16 PM CDT September * Over the past 2 weeks, how often have you been bothered by any of the following problems? Question Answer Date of Assessment Author Patient Health Questionnaire-2 Score 0 06/2022 1:16 PM CDT September documented as of this encounter Plan of Treatment Not on file documented as of this encounter Visit Diagnoses Not on filedocumented in this encounter Additional Health Concerns Assessment Noted Time PHQ-9 Depression Total Score: 2 04/18/20 23 1:16 PM CDT documented as of this encounter Care Teams Manager Program Management Relationship Specialty Start Date End Date Siva Burgos MD [address] [place] [address] PCP - General Internal Medicine 02/26/20 Ananth Green DPM Podiatry 04/05/22 documented as of this encounter
--- OUTSIDE RECORDS SUMMARY | 2024-06-23 18:21 | XMS_ITS | Encounter Summary ---
Author Organization [employer] Care Team Providers Care Mold Bunch Trimmer Name Role Phone Siva Burgos MD Primary Care Provider [phone]- [phone] Encounter Details Date Type Department Care Team (Latest Contact Info) Description 02/15/2022 Travel Social History Tobacco Use Types Packs/Day Years Used Date Smoking Tobacco: Never Smokeless Tobacco: Never Alcohol Use Standard Drinks/Week Comments Yes 0 (1 standard drink = 0.6 oz pur e alcohol) Rare PHQ-2 Answer Date Recorded Total Score - Questions 1-9 0 10/16 Sexually Active Control Partners Comments Yes Comments [...] suspected to have Coronavirus/COVID-19? No / Unsure 01/19/2022 8:53 PM CDT documented as of this encounter Plan of Treatment Not on file documented as of this encounter Visit Diagnoses Not on filedocumented in this encounter Additional Health Concerns Assessment Noted Time PHQ-9 Depression Total Score: 0 03/02/20 20 1:00 PM CDT documented as of this encounter Care Teams Mold Bunch Trimmer Relationship Specialty Start Date End Date Siva Burgos MD [address] [place] [address] PCP - General Internal Medicine 02/26/20 documented as of this encounter
--- OUTSIDE RECORDS SUMMARY | 2024-06-23 18:21 | XMS_ITS | Encounter Summary ---
Author Organization [employer] Care Team Providers Care Inspector Circuitry Negative Name Role Phone Siva Burgos MD Primary Care Provider [phone]- [phone] Encounter Details Date Type Department Care Team (Latest Contact Info) Description 01/12/2022 Travel Social History Tobacco Use Types Packs/Day [...] suspected to have Coronavirus/COVID-19? No / Unsure 01/12/2022 7:11 AM CDT documented as of this encounter Plan of Treatment Not on file documented as of this encounter Visit Diagnoses Not on filedocumented in this encounter Additional Health Concerns Assessment Noted Time PHQ-9 Depression Total Score: 0 03/02/20 20 1:00 PM CDT documented as of this encounter Care Teams Inspector Circuitry Negative Relationship Specialty Start Date End Date Siva Burgos MD [address] [place] [address] PCP - General Internal Medicine 02/26/20 documented as of this encounter
--- OUTSIDE RECORDS SUMMARY | 2024-06-23 18:21 | XMS_ITS | Encounter Summary ---
Author Organization [employer] Care Team Providers Care Naturopathic Physician Name Role Phone Siva Burgos MD Primary Care Provider [phone] [phone] Encounter Details Date Type Department Care Team (Latest Contact Info) Description 04/04/2022 Travel Social History Tobacco Use Types Packs/Day [...] suspected to have Coronavirus/COVID-19? No / Unsure 04/04/2022 4:44 PM CDT documented as of this encounter Plan of Treatment Not on file documented as of this encounter Visit Diagnoses Not on filedocumented in this encounter Additional Health Concerns Assessment Noted Time PHQ-9 Depression Total Score: 0 03/02/20 20 1:00 PM CDT documented as of this encounter Care Teams Naturopathic Physician Relationship Specialty Start Date End Date Siva Burgos MD [address] [place] [address] PCP - General Internal Medicine 02/26/20 documented as of this encounter
--- OUTSIDE RECORDS SUMMARY | 2024-06-23 18:21 | XMS_ITS | Encounter Summary ---
Author Organization [employer] Care Team Providers Care Peer Counselor Name Role Phone Siva Burgos MD Primary Care Provider +1- [phone] Ananth Green DPM Unavailable Unavailable Encounter Details Date Type Department Care Team (Latest Contact Info) Description 05/28/2022 Travel Social History Tobacco Use Types Packs/Day [...] suspected to have Coronavirus/COVID-19? No / Unsure 05/28/2022 2:58 PM DOUBLE SURFACE OPERATOR documented as of this encounter Plan of Treatment Not on file documented as of this encounter Visit Diagnoses Not on filedocumented in this encounter Additional Health Concerns Assessment Noted Time PHQ-9 Depression Total Score: 0 03/02/20 20 1:00 PM CDT documented as of this encounter Care Teams Peer Counselor Relationship Specialty Start Date End Date Siva Burgos MD [address] [place] [address] PCP - General Internal Medicine 02/26/20 Ananth Green DPM Podiatry 04/05/22 documented as of this encounter
--- OUTSIDE RECORDS SUMMARY | 2024-06-23 18:21 | XMS_ITS | Encounter Summary ---
Author Organization [facility] Address [address] [place] [address] Phone Care Team Providers Care Modeling Director Name Role Phone Siva Burgos MD Primary Care Provider Reason for Referral * Radiology Services (Routine) - Closed Specialty Diagnoses / Procedures Referred By Travis elizabeth Referred To Contact Radiology Diagnoses Encounter for screening mammogram for malignant neoplasm of breast Procedures WERNER SCREENING BILATERAL DIGITAL W CAD W SAUNDRA Alayna Belcher APRN [address] [place] [address] Phone: tel: fax: Referral ID Status Reason Start Date Expiration Date Visits Re quested Visits Authorized [id number] Closed 01/18/2022 1 1 Encounter Details Date Type Department Care Team (Late st Contact Info) Description 01/18/2022 Transcribe Orders [facility] Central Scheduling [address] [place] [address] Alayna Belcher APRN [address] [place] [address] Encounter for screening mammogram for malignant neoplasm of breast (Primary Dx) Social History Tobacco Use Types [...] of this encounter Plan of Treatment Scheduled Orders Name Type Priority Associated Diagnoses Orde r Schedule WERNER SCREENING BILATERAL DIGITAL W CAD W SAUNDRA Imaging Routine Encounter for screening mammogram for malignant neoplasm of breast Expected: 01/18/2022, Expires: 01/18/2023 documented as of this encounter Visit Diagnoses Diagnosis Encounter for screening mammogram for malignant neoplasm of breast- Primary Other screening mammogram documented in this encounter Additional Health Concerns Assessment Noted Time PHQ-9 Depression Total Score: 0 03/02/20 1:00 PM CDT documented as of this encounter Care Teams Modeling Director Relationship Specialty Start Date End Date Siva Burgos MD [address] [place] [address] PCP - General Internal Medicine 02/26/20 documented as of this encounter
--- OUTSIDE RECORDS SUMMARY | 2024-06-23 18:21 | XMS_ITS | Encounter Summary ---
Author Organization [facility] Address [address] [place] [address] Phone Care Team Providers Care Layout Man Name Role Phone Siva Burgos MD Primary Care Provider Ananth Green DPM Unavailable Unavailable Reason for Visit * Reason Onset Date Comments Appointment 05/31/2022 Same-day cancel Encounter Details Date Type Department Care Team (Late st Contact Info) Description 05/31/[address] [facility] [address] [place] [address] Elyssa Hernandez M, PT [place] Appointment (Same-day cancel) Social History Tobacco Use Types Packs/Day Years [...] Coronavirus/COVID-19? No / Unsure 05/28/2022 2:58 PM SYSTEM ADMINISTRATION MANAGER documented as of this encounter Miscellaneous Notes * Telephone Encounter - Elyssa Hernandez, PT - 05/31/2022 8:24 AM SYSTEM ADMINISTRATION MANAGER ----- Message from Pradip Sanon sent at 05/31/2022 8:19 AM SYSTEM ADMINISTRATION MANAGER ----- Regarding: cxd Same day cxd# patient lvm stating she needed to cancel EM ADMINISTRATION MANAGER documented in this encounter Plan of Treatment Not on file documented as of this encounter Visit Diagnoses Not on filedocumented in this encounter Additional Health Concerns Assessment Noted Time PHQ-9 Depression Total Score: 0 03/02/20 20 1:00 PM CDT documented as of this encounter Care Teams Layout Man Relationship Specialty Start Date End Date Siva Burgos MD [address] [place] [address] PCP - General Internal Medicine 02/26/20 Ananth Green DPM Podiatry 04/05/22 documented as of this encounter
--- OUTSIDE RECORDS SUMMARY | 2024-06-23 18:21 | XMS_ITS | Encounter Summary ---
Author Organization [facility] Address [address] [place] [address] Phone Care Team Providers Care Stunt Man Name Role Phone Siva Burgos MD Primary Care Provider [phone] Ananth Green DPM Unavailable Unavailable Encounter Details Date Type Department Care Team (Late st Contact Info) Description 01/03/2023 Telephone [facility] - [facility] Medicine - [place] [address] [place] [address] Siva Burgos MD [address] [address] Social History Tobacco Use Types Packs/Day Years [...] suspected to have Coronavirus/COVID-19? No / Unsure 01/02/2023 1:19 PM CDT documented as of this encounter Miscellaneous Notes * Telephone Encounter - September - 01/03/2023 3:58 PM CDT Called and spoke to patient gave results she was in full understandings . * Telephone Encounter - September - 01/03/2023 3:58 PM CDT ----- Message from Eva Heredia RN sent at 01/03/2023 7:28 AM CDT ----- ----- Message ----- From: Sybil Dean PAC Sent: 01/02/2023 4:41 PM CDT To: Jennifer De La Cruz Nurse Mario K is normal Cont OTC diet as discussed documented in this encounter Plan of Treatment Not on file documented as of this encounter Visit Diagnoses Not on filedocumented in this encounter Additional Health Concerns Assessment Noted Time PHQ-9 Depression Total Score: 0 01/03/20 23 1:00 PM CDT documented as of this encounter Care Teams Stunt Man Relationship Specialty Start Date End Date Siva Burgos MD [address] [place] [address] PCP - General Internal Medicine 02/26/20 Ananth Green DPM Podiatry 04/05/22 documented as of this encounter
--- OUTSIDE RECORDS SUMMARY | 2024-06-23 18:21 | XMS_ITS | Encounter Summary ---
Author Organization [facility] Address [address] [place] [address] Phone Care Team Providers Care Admissions Manager Name Role Phone Siva Burgos MD Primary Care Provider Ananth Green DPM Unavailable Unavailable Encounter Details Date Type Department Care Team (Late st Contact Info) Description 01/02/2023 2:10 PM CDT Lab [facility] - Primary [facility] [address] [address] [facility] Low serum potassium Discharge Disposition: Discharged to home or Selfcare Social History Tobacco Use Types Packs/Day Years [...] pleasure in doing things Not at all 01/02/2023 1:00 PM CDT Bella Childers RMA Feeling down, depressed, or hopeless Not at all 01/02/2023 1:00 PM CDT Belal Childers RMA * Over the past 2 weeks, how often have you been bothered by any of the following problems? Question Answer Date of Assessment Author Patient Health Questionnaire -2 Score 0 01/02/2023 1:00 PM CDT Bella Childers RMA documented as of this encounter Progress Notes * Guera Emerson - 01/02/2023 2:10 PM CDT Luciana presents for lab draw per order of Sybil Dean PA-C dated 01/02/23. Specimen collected from right antecubital without incident. sah documented in this encounter Plan of Treatment Not on file documented as of this encounter Procedures Procedure Name Priority Date/Time Associated Diagnosis Comments CBC WITH AUTO DIFFERENTIAL Routine 01/02/2023 2:05 PM CDT Low serum potassium CMP (COMPREHENSIVE METABOLIC PANEL) Routine 01/02/2023 2:05 PM CDT Low serum potassium COMPLETE BLOOD COUNT (CBC) WITH DIFF Routine 01/02/2023 2:05 PM CDT Low serum potassium documented in this encounter Results * CBC WITH AUTO DIFFERENTIAL (01/02/2023 2:05 PM CDT) WBC 6.25 4.00 - 12.00 10(3)/mcL 01/02/2023 3:09 PM CDT [facility] RBC 4.37 3.80 - 5.30 10(6)/mcL 01/02/2023 3:09 PM CDT [facility] HEMOGLOBIN (HGB) 13.5 12.0 - 15.8 g/dL 01/02/2023 3:09 PM CDT [facility] HEMATOCRIT (HCT) 40.1 36.0 - 47.0 % 01/02/2023 3:09 PM CDT [facility] MCV 91.8 82.0 - 96.0 fL 01/02/2023 3:09 PM CDT [facility] MCH 30.9 26.0 - 34.0 pg 01/02/2023 3:09 PM CDT [facility] MCHC 33.7 31.0 - 36.0 g/dL 01/02/2023 3:09 PM CDT [facility] PLATELET COUNT 273 140 - 440 10(3)/mcL 01/02/2023 3:09 PM CDT [facility] RDW 12.2 11.8 - 15.5 % 01/02/2023 3:09 PM CDT [facility] MPV 9.7 9.7 - 12.4 fL 01/02/2023 3:09 PM CDT [facility] NEUTROPHILS 54.3 47.0 - 73.0 % 01/02/2023 3:09 PM CDT [facility] LYMPHOCYTES 32.6 18.0 - 42.0 % 01/02/2023 3:09 PM CDT [facility] MONOCYTES 9.4 4.0 - 12.0 % 01/02/2023 3:09 PM CDT [facility] EOSINOPHILS 2.7 0.0 - 5.0 % 01/02/2023 3:09 PM CDT [facility] BASOPHILS 1.0 0.0 - 1.0 % 01/02/2023 3:09 PM CDT [facility] ABSOLUTE NEUTROPHILS 3.39 1.60 - 7.70 10(3)/mcL 01/02/2023 3:09 PM CDT [facility] ABSOLUTE LYMPHOCYTES 2.04 1.30 - 3.20 10(3)/mcL 01/02/2023 3:09 PM CDT [facility] ABSOLUTE MONOCYTES 0.59 0.20 - 1.00 10(3)/mcL 01/02/2023 3:09 PM CDT [facility] ABSOLUTE EOSINOPHIL 0.17 0.00 - 0.40 10(3)/mcL 01/02/2023 3:09 PM CDT [facility] ABSOLUTE BASOPHILS 0.06 0.00 - 0.10 10(3)/mcL 01/02/2023 3:09 PM CDT [facility] NRBC PER 100 WBC 0 01/03/20 3:09 PM CDT [facility] Blood Venipuncture / Unknown 01/02/2023 2:05 PM CDT 01/02/2023 2:05 PM CDT Sybil Dean PAC HEMATOLOGY ORDERA BLES Final Result [facility] [address] [place] [address] * (ABNORMAL) CMP (COMPREHENSIVE METABOLIC PANEL) (01/02/2023 2:05 PM CDT) SODIUM 139 136 - 144 mmol/L 01/02/2023 3:38 PM CDT [facility] POTASSIUM 3.9 3.5 - 5.1 mmol/L 01/02/2023 3:38 PM CDT [facility] CHLORIDE 101 100 - 110 mmol/L 01/02/2023 3:38 PM CDT [facility] CO2, VENOUS 27 22 - 32 mmol/L 01/02/2023 3:38 PM CDT [facility] ANION GAP 14.9 8.0 - 20.0 mmol/L 01/02/2023 3:38 PM CDT [facility] GLUCOSE 89 70 - 99 mg/dL 01/02/2023 3:38 PM CDT [facility] BUN 12 6 - 20 mg/dL 01/02/2023 3:38 PM CDT [facility] CREATININE, BLOOD 0.74 0.60 - 1.10 mg/dL 01/02/2023 3:38 PM CDT [facility] BUN/CREATININE RATIO 16 12 - 20 ratio 01/02/2023 3:38 PM T [facility] TOTAL PROTEIN 7.0 6.0 - 8.3 g/dL 01/02/2023 3:38 PM T [facility] ALBUMIN 4.3 3.5 - 5.0 g/dL 01/02/2023 3:38 PM T [facility] Comment: The colormetric methods used for the determination of Albumin may lead to falsely elevated test results in patients suffering from renal failure or insufficiency due to interference with other proteins. A/G RATIO 1.6 1.0 - 2.0 01/02/2023 3:38 PM CDT [facility] CALCIUM 9.8 8.7 - 10.5 mg/dL 01/02/2023 3:38 PM T [facility] T BILI 0.3 0.2 - 1.2 mg/dL 01/02/2023 3:38 PM T [facility] SGOT (AST) 22 <=32 U/L 01/02/2023 3:38 PM T [facility] SGPT (ALT) 17 <=41 U/L 01/02/2023 3:38 PM [facility] ALKALINE PHOSPHATASE 121(H) 35 - 105 U/L 01/02/2023 3:38 PM T [facility] IS THE PATIENT REQUIRED TO BE FASTING? No 01/02/2023 3:38 PM CDT [facility] GFR, ESTIMATED >60 >=60 01/02/2023 3:38 PM T [facility] Comment: Creatinine Clearance is the preferred criteria for selecting drug dose adjustments in renally impaired patients. ??The GFR is provided as additional pertinent clinical information. GFR is reported in mL/min/1.73 sq m. Calculation based on the Chronic Kidney Disease Epidemiology Collaboration (CKD- EPI) equation refit without adjustment for race. GFR, EST. >60 >=60 023 3:38 PM CDT [facility] GFR, EST. NONAFRICAN >60 >=60 01/02/2023 3:38 PM CDT [facility] Blood Venipuncture / Unknown 01/02/2023 2:05 PM CDT 01/02/2023 2:05 PM CDT Sybil Dean PAC CHEMISTRY ORDERAB LES Final Result [facility] [address] [place] [address] documented in this encounter Visit Diagnoses Diagnosis Low serum potassium documented in this encounter Additional Health Concerns Assessment Noted Time PHQ-9 Depression Total Score: 0 01/03/20 23 1:00 PM CDT documented as of this encounter Care Teams Admissions Manager Relationship Specialty Start Date End Date Siva Burgos MD [address] [place] [address] PCP - General Internal Medicine 02/26/20 Ananth Green DPM Podiatry 04/05/22 documented as of this encounter
--- OUTSIDE RECORDS SUMMARY | 2024-06-23 18:21 | XMS_ITS | Encounter Summary ---
Author Organization [facility] Address [address] [place] [address] Phone Care Team Providers Care Reset Merchandiser Name Role Phone Siva Burgos MD Primary Care Provider Ananth Green DPM Unavailable Unavailable Reason for Visit * Reason Onset Date Comments Appointment 05/15/2022 Same day cancel. Encounter Details Date Type Department Care Team (Late st Contact Info) Description 05/15/2022 Telephone [facility] [address], [address] [place] [address] Levar Mixon RN [place] Appointment (Same day cancel.) Social History Tobacco Use Types Packs/Day Years [...] suspected to have Coronavirus/COVID-19? No / Unsure 05/08/2022 12:23 PM COMPUTER SALESPERSON RETAIL documented as of this encounter Miscellaneous Notes * Telephone Encounter - Levar Mixon PTA - 05/15/2022 12:48 PM COMPUTER SALESPERSON RETAIL Patient called to cancel appointment. Per the front office, patient LVM w/ no reason as to why sheneeded to cancel. LEVAR MIXON PTA UTER SALESPERSON RETAIL documented in this encounter Plan of Treatment Not on file documented as of this encounter Visit Diagnoses Not on filedocumented in this encounter Additional Health Concerns Assessment Noted Time PHQ-9 Depression Total Score: 0 03/02/20 20 1:00 PM CDT documented as of this encounter Care Teams Reset Merchandiser Relationship Specialty Start Date End Date Siva Burgos MD [address] [place] [address] PCP - General Internal Medicine 02/26/20 Ananth Green DPM Podiatry 04/05/22 documented as of this encounter
--- OUTSIDE RECORDS SUMMARY | 2024-06-23 18:21 | XMS_ITS | Encounter Summary ---
Author Organization [facility] Address [address] [place] [address] Phone Care Team Providers Care Oxygen Equipment Aide Name Role Phone Siva Burgos MD Primary Care Provider [phone] Ananth Green DPM Unavailable Unavailable Reason for Visit * Reason Onset Date Comments Appointment 05/22/2022 Same-day cancel Encounter Details Date Type Department Care Team (Late st Contact Info) Description 05/22/[address] [facility] Physical Therapy Virtual IP [address] [place] [address] Elyssa Hernandez, PT [place] Appointment (Same-day cancel) Social History [...] suspected to have Coronavirus/COVID-19? No / Unsure 05/17/2022 8:52 AM SENIOR PROJECT CONTROLS SPECIALIST documented as of this encounter Miscellaneous Notes * Telephone Encounter - Elyssa Hernandez, PT - 05/22/2022 1:13 PM SENIOR PROJECT CONTROLS SPECIALIST ----- Message from Pradip Sanon sent at 05/22/2022 7:05 AM SENIOR PROJECT CONTROLS SPECIALIST ----- Regarding: cxd Same day cxd# car wont work OR PROJECT CONTROLS SPECIALIST documented in this encounter Plan of Treatment Not on file documented as of this encounter Visit Diagnoses Not on filedocumented in this encounter Additional Health Concerns Assessment Noted Time PHQ-9 Depression Total Score: 0 03/02/20 20 1:00 PM CDT documented as of this encounter Care Teams Oxygen Equipment Aide Relationship Specialty Start Date End Date Siva Burgos MD [address] [place] [address] PCP - General Internal Medicine 02/26/20 Ananth Green DPM Podiatry 04/05/22 documented as of this encounter
--- OUTSIDE RECORDS SUMMARY | 2024-06-23 18:21 | XMS_ITS | Encounter Summary ---
Author Organization [facility] Address [address] [place] [address] Phone Care Team Providers Care Early Morning Name Role Phone Siva Burgos MD Primary Care Provider Ananth Green DPM Unavailable Unavailable Fidencio Zimmer MD Unavailable Reason for Visit * Reason Onset Date Comments Care Management 09/06/2023 Encounter Details Date Type Department Care Team (Late st Contact Info) Description 09/06/2023 Telephone [facility] - General Surgery - [place] [address] [address] Fidencio Zimmer MD [address] [address] Care Management Social History Tobacco Use Types Packs/Day Years Used Date Smoking Tobacco: Never Smokeless Tobacco: Never Alcohol Use Standard Drinks/Week Comments Not Currently 0 (1 standard drink = 0.6 oz pur e alcohol) Rare [facility] Utilities Answer Date Recorded In the past 12 months has e electric, gas, oil, or water company threatened to shut off services in your home? No 08/03/2023 PHQ-2 Answer Date Recorded Total Score - Questions 1-9 2 0 06/2022 Hunger Vital Sign Answer Date Recorded Within the past 12 months, y ou worried that your food would run out before you got the money to buy more. Never true 08/03/19 24 Within the past 12 months, t he food you bought just didn't last and you didn't have money to get more. Never true 08/03/2023 PRAPARE - Transportation Answer Date Re corded In the past 12 months, has l ack of transportation kept you from medical appointments or from getting medications? No 07/19 In the past 12 months, has l ack of transportation kept you from meetings, work, or from getting things needed for daily living? No 08/03/2023 Housing Stability Vital Sign Answer [...] in a correction (including now)? No 08/03/2023 Education Answer Date Recorded What is the [...] encounter Miscellaneous Notes * Telephone Encounter - Bella Magdaleno RN - 09/11/2023 9:00 AM CDT Patient sent Seelio message. Please see message. * Telephone Encounter - Bella Magdaleno RN - 09/10/2023 1:03 PM CDT Left voicemail for patient to return call to clinic. * Telephone Encounter - Zaina Betancur RN - 09/07/2023 9:32 AM CDT Left voicemail for patient to return call to office regarding scheduling a wound check visit.for 09/11/23. * Telephone Encounter - Bella Magdaleno RN - 09/06/2023 1:50 PM CDT Spoke with patient who stated she had her appendix removed 08/04/[address] Zimmer. She stated she has a dime size area to the upper part of her umbilicus and lower part of her umbilicus. She stated this redness started a few days ago. She also complains of umbilical tenderness that she rates a 3 on a scale from 1- 10 with 10 being the worst pain. 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 Patient stated she is and has been wearing low cut pants to avoid the umbilical area. She denies swimming/soaking in a bathtub and/or using a hot tub. She denies itching to the area. Denies fever, chills, nausea, vomiting, and red streaks coming from the umbilical area. Patient denies a temperature change in the umbilical area, denies drainage andstates the glue is off (per Dr. Zimmer at last visit) and the incisional area is intact. She is not taking Motrin/Ibuprofen/Tylenol or anything for pain. She stated she would send a picture of the area via Seelio. Patient states other incisional sites look good. Routed to Dr. Zimmer, please advise. * Telephone Encounter - Cony Chaney - 09/06/2023 12:29 PM CDT Patient left voicemail. States that she had her appendix removed 2023. She has concerns because the area is red and tender. Please advise. documented in this encounter Plan of Treatment Not on file documented as of this encounter Visit Diagnoses Not on filedocumented in this encounter Additional Health Concerns Assessment Noted Time PHQ-9 Depression Total Score: 2 04/18/20 23 1:16 PM CDT documented as of this encounter Care Teams Early Morning Relationship Specialty Start Date End Date Siva Burgos MD [address] [place] [address] PCP - General Internal Medicine 02/26/20 Ananth Green DPM Podiatry 04/05/22 Fidencio Zimmer MD [address] [address] Consulting Physician Colon and Rectal Surgery 08/08/23 documented as of this encounter
--- OUTSIDE RECORDS SUMMARY | 2024-06-23 18:21 | XMS_ITS | Clinical Summary ---
Author Organization [facility] Address [address] [place] [address] Phone Care Team Providers Care Material Handling Equipment Stevedore Name Role Phone Siva Burgos MD Primary Care Provider Ananth Green DPM Unavailable Unavailable Fidencio Zimmer MD Unavailable Allergies No known active allergies Medications Magnesium 250 MG Tablet Take by mouth. Activ e hydroxychloroq uine (PLAQUENIL) 200 MG Tablet Take 400 mg by mouth daily. Active fluticasone (FLONASE) 50 MCG/ACT Suspension 2 spray in each nostril bid for 7 days then 1 spray in each nostril bid 16 g 3 3 Active meloxicam (MOBIC) 15 MG Tablet Take 1 Tablet by mouth daily. 3 Active acetaminophen (TYLENOL) 325 MG Tablet Take 1 Tablet by mouth every 6 hours as needed for Fever (for temperature greater than 100.4 F.). Do not exceed 4000 mg of acetaminophen in 24 hour from all sources. 4 Active Active Problems Problem Noted Date Diagnosed Date Raynaud's disease without gangrene 02/13/2024 Appendicitis, acute 08/03/2023 LIAM positive 10/31/2021 Immunizations Immunization Administration Dates Next Due Albumin IV 08/04/2023,08/04/2023 Influenza Vaccine 03/17/2019 Family History Medical History Relation Name Comments No Known Problems Brother No Known Problems Daughter Prostate Cancer Father Multiple Sclerosis Mother No Known Problems Son 1 No Known Problems Son 2 Relation Name Status Comments Brother Alive Daughter Alive Father Mother Son 1 Alive Son 2 Alive Social History Tobacco Use Types Packs/Day Years Used Date Smoking Tobacco: Never Smokeless Tobacco: Never Tobacco Cessation:Counseling Given: Not Answered Alcohol Use Standard Drinks/Week Comments Not Currently 0 (1 standard drink = 0.6 oz pur e alcohol) Rare [facility] Utilities Answer Date Recorded In the past 12 months has e [employer], gas, oil, or water [place] threatened to shut off services in your home? Patient declined 02/12/2024 Social Connection and Isolation Panel [NHANES] A nswer Date Recorded In a typical week, how many times do you talk on the phone with family, friends, or neighbors? Patient declined 02/12/2024 How often do you get togethe r with friends or relatives? Patient declined 02/12/2024 How often do you attend anabaptism or adventism serv ices? Patient declined 02/12/2024 Do you belong to any clubs o r organizations such as anabaptism groups, unions, fraternal or athletic groups, or [...] Total Score - Questions 1-9 0 01/17 [facility] [place] of Occupat ional Health - Occupational Stress Questionnaire Answer Date Recorded [...] place to sleep or slept in a penitentiary (including now)? No 08/03/2023 Housing Stability Vital Sign Answer Lio e Recorded In the last 12 months, was t here a time when you were not able to pay the mortgage or rent on time? Patient declined 02/12/20 24 Number of Times Moved in the Last Year Not on fi le 02/12/2024 At any time in the past 12 [facility], were you homeless or living in a penitentiary (including now)? No 02/12/2024 Education Answer Date [...] PM CDT Sexual Orientation Not on file Last Filed Vital Signs Vital Sign Reading Time Taken Comments Blood Pressure 92/68 02/13/2024 11:28 AM CDT Pulse 72 02/13/2024 11:28 AM CDT Temperature 36.7 ??C (98 ??F) 02/13/2024 11:28 AM CDT Respiratory Rate 12 02/13/2024 11:28 AM CDT Oxygen Saturation 97% 02/13/2024 11:28 AM CDT Inhaled Oxygen Concentration - - Weight 59.9 kg (132 lb 1.6 oz) 02/13/2024 11:28 AM CDT Height 158.8 cm (5' 2.5 ) 02/13/2024 11:28 AM CD T Body Mass Index 23.78 02/13/2024 11:28 AM CDT Plan of Treatment Health Maintenance Due Date Last Done Comments Hepatitis C Virus (HCV) Screening 1974 TdaP Immunization 1974 Hepatitis B Immunization (1 of 3 - 19+ 3-dose series) 1993 HPV/Cotest 2004 SARS-COV-2 Immunization (3 - Pfizer risk series) 11/29/2020 11/01/2020, 10/12/2020 Influenza Immunization (#1) 2024 07/06/2022, 0 03/17/2019 Cologuard 2024 Immunochemical Fecal Occult Blood 2024 Cervical Cancer Screening (CCS) 11/27/2026 Pap Smear 11/27/2026 11/28/2023 Colonoscopy 02/07/2033 02/07/2023, 01/17, 02/07/2023 Colorectal Cancer Screening 02/07/2033 Respiratory Syncytial Virus (RSV) Immunization (Adult) (1 - 1-dose 75+ series) 2049 02/07/2023, 01/17, 02/07/2023 Discussion re Starting/Frequency of Mammograms Completed 02/13/2024, 04/09/2018, 03/15/2018, Additional history exists Meningococcal Immunization (ACWY) Aged Out No longer eligible based on patient's age to complete this topic Pneumococcal Immunization Combined Aged Out No longer eligible based on patient's age to complete this topic Rotavirus Immunization Aged Out No lo nger eligible based on patient's age to complete this topic Procedures Procedure Name Priority Date/Time Associated Diagnosis Comments WERNER SCREENING BILATERAL DIGITAL W CAD W SAUNDRA Routine 02/13/2024 2:05 PM CDT Visit for screening mammogram HM COLONOSCOPY 02/07/2023 12:00 AM CDT from Last 3 Months or Most Recently Relevant to Health Maintenance Results * WERNER SCREENING BILATERAL DIGITAL W CAD W SAUNDRA (02/13/2024 2:05 PM CDT) Anatomical Region Laterality Modality breast Bilateral Mammography 02/13/2024 2:10 PM CDT Narrative 02/19/2024 3:15 PM CDT - WERNER SCREENING BILATERAL DIGITAL W CAD W SAUNDRA BILATERAL DIGITAL SCREENING MAMMOGRAM 3D/2D WITH CAD WITH MEDIOLATERAL OBLIQUE CRANIOCAUDAL: 02/13/2024 The study was acquired using digital technology and interpreted from soft copy. Current study was also evaluated with ICAD version 7.2. 2D digital mammographic views, as well as 3D digital tomosynthesis were performed in the CC and MLO projections. ?? CLINICAL: Routine screening. Patient has no complaints. No personal history of cancer. No family history of breast cancer. ?? COMPARISONS: Comparison is made to exams dated: ??03/15/2018, 04/09/2018, and 03/09/2017 [facility]. ?? BREAST TISSUE:The tissue of both breasts is heterogeneously dense. This may lower the sensitivity of mammography. ?? FINDINGS: There are benign calcifications in both breasts. ?? No significant masses, calcifications, or other findings are seen in either breast. ?? There has been no significant interval change. IMPRESSION: BI-RAD 2 BENIGN There is no mammographic evidence of malignancy. A 1 year screening mammogram is recommended. ?? A letter will be sent to the patient with these results. The patient will be entered into a reminder system with a target due date of 1 year for her next screening exam. Electronically signed by: Nichelle Randhawa M.D. ? /glenys:02/19/2024 14:53:10 ?? Internal Controls Analyst(s): Aminata ??RT Madeleine(R)(M), [facility] letter sent: Normal Exam ?? Reading location: [facility] BI-RADS: 2 Benign Procedure Note Nichelle Randhawa MD - 02/19/2024 - WERNER SCREENING BILATERAL DIGITAL W CAD W SAUNDRA BILATERAL DIGITAL SCREENING MAMMOGRAM 3D/2D WITH CAD WITH MEDIOLATERAL OBLIQUE CRANIOCAUDAL: 02/13/2024 The study was acquired using digital technology and interpreted from soft copy. Current study was also evaluated with ICAD version 7.2. 2D digital mammographic views, as well as 3D digital tomosynthesis were performed in the CC and MLO projections. CLINICAL: Routine screening. Patient has no complaints. No personal history of cancer. No family history of breast cancer. COMPARISONS: Comparison is made to exams dated: 03/15/2018, 04/09/2018, and 03/09/2017 [facility]. BREAST TISSUE:The tissue of both breasts is heterogeneously dense. This may lower the sensitivity of mammography. FINDINGS: There are benign calcifications in both breasts. No significant masses, calcifications, or other findings are seen in either breast. There has been no significant interval change. IMPRESSION: BI-RAD 2 BENIGN There is no mammographic evidence of malignancy. A 1 year screening mammogram is recommended. A letter will be sent to the patient with these results. The patient will be entered into a reminder system with a target due date of 1 year for her next screening exam. Electronically signed by: Nichelle cherry/glenys:02/19/2024 14:53:10 Internal Controls Analyst(s): RT Margi(R)(M), [facility] letter sent: Normal Exam Reading location: [facility] BI-RADS: 2 Benign us Siva Burgos MD IMG MAMMO ORDERABLES Final Result * HM COLONOSCOPY (02/07/2023 12:00 AM CDT) 02/07/2023 us Provider Scan PROCEDURE/MINOR SURGICAL ORDERAB LES Final Result SCAN from Last 3 Months or Most Recently Relevant to Health Maintenance Insurance MEDICAID [facility] Advance Directives * Full Code (Latest Code Status on File) Date Activated Date Inactivated Comments 08/03/2023 8:24 PM 08/05/2023 12:23 AM CPR-Full Tr eatment: FULL ARREST: Attempt Resuscitation/CPR wit intubation and mechanical ventilation. PRE-ARREST: Use entire range of life support measures to stabilize the patient. Care Teams Material Handling Equipment Stevedore Relationship Specialty Start Date End Date Siva Burgos MD [address] [place] [address] PCP - General Internal Medicine 02/26/20 Ananth Green DPM Podiatry 04/05/22 Fidencio Zimmer MD #[address] [address] Consulting Physician Colon and Rectal Surgery 08/08/23
--- OUTSIDE RECORDS SUMMARY | 2024-06-23 18:21 | XMS_ITS | Encounter Summary ---
Author Organization [facility] Address [address] [place] [address] Phone Care Team Providers Care Heavy Duty Custodian Name Role Phone Siva Burgos MD Primary Care Provider Ananth Green DPM Unavailable Unavailable Reason for Visit * Auth/Cert (Routine) Specialty Diagnoses / Procedures Referred By Travis lowry Referred To Contact Diagnoses Unspecified acute appendicitis Reviewed [place] 08/06 Fidencio Zimmer MD #[address] [address] Phone: tel: fax: Referral ID Status Reason Start Date Expiration Date Visits Re quested Visits Authorized [id number] 1 1 Encounter Details Date Type Department Care Team (Late st Contact Info) Description 08/04/2023 8:12 AM FIBERGLASS BOAT MAKER [facility] [address] [place] [address] Markus Campbell APRN, COMMISSIONING SPECIALIST [address] [place] [address] Anesthesia Record Procedure Summary Procedure Name Responsible Anesthesiologist Anesthesia Start Time Anesthesia Stop Time LAPAROSCOPIC APPENDECTOMY (Abdomen) Markus Campbell APRN, CRNA 08/04/23 0812 08/04/23 0913 Events Date Time Event Comment 08/04/2023 0751 0812 An Start 0812 An Start Data 0817 ANASSESSCMPLT 0817 An Induction 0820 Intubation 0821 Anesthesia Ready 0906 An Extubation TOF 4/4 with S T 0907 Stop Data Collection 09 Transort to Postop 09 Handoff to RN I completed my SBAR handoff to the receiving nurse. Last vitals BP: (!) 72/56 Temp: 37.7 ??C (99.8 ??F) Pulse: 94 Resp: 19 SpO2: 98 % 0913 An Stop Last vitals: BP : (!) 72/56 Temp: 37.7 ??C (99.8 ??F) Pulse: 94 Resp: 19 SpO2: 98 % Meds Name Total midazolam (VERSED) injection 1 mg/mL 2 m g propofol 10 mg/mL 70 mg lidocaine 1 % 60 mg succinylcholine 20 mg/mL 140 mg rocuronium 10 mg/mL 50 mg fentaNYL 50 mcg/mL 100 mcg ondansetron 4 mg/2 mL 4 mg dexamethasone 10 mg/mL 5 mg phenylephrine 10 mg/mL 400 mcg piperacillin-tazobactam (ZOSYN) 4.5 g in jection 4.5 g norepinephrine infusion 8 mg/250 mL 62 m cg diphenhydrAMINE 50 mg/mL 25 mg ketorolac (TORADOL) injection 15 mg 15 m g sugammadex injection 200 mg sodium chloride 0.9 % 1,500 mL * Agents No agents on file. * Blood No blood administrations on file. Lines, Drains, and Airways Type Details Placement Removal PIV-Single Lumen Placement Date: 07/19 12/09; Placement Time: 1758; Catheter Size: 20 G; Orientation: Right; Location: Antecubital; Site Prep: Alcohol; Local Anesth: None; Technique: Anatomical landmarks; Inserted by: Dutch Lowry RN; Removal Date: 08/04/23; Removal Time: 1958; Removal Reason: Per order 08/03/231758 by Mary Delgado RN 08/04/231958 by Cathy Frias RN PIV-Single Lumen Placement Date: 07/19 01/08; Placement Time: 800; Catheter Size: 20 G; Orientation: Right, Lateral; Location: Wrist; Site Prep: Chlorhexidine ; Local Anesth: None; Technique: Anatomical landmarks; Inserted by: PAU GUTIÉRREZ RN; Insertion Attempts: 1; Patient Tolerance: Tolerated well; Removal Date: 08/04/23; Removal Time: 1958; Removal Reason: Per order 08/04/23 08 by Cira Stein RN 08/04/231958 by Cathy Frias RN Urethral Catheter Placement Date: 07/19 01/08; Placement Time: 08; Inserted by: Jose STEIN RN; Type: Latex; Size: 16 Fr.; Balloon Size: 10 mL; Urine Returned: Yes; Removal Date: 08/04/23; Removal Time: 1100 08/04/23 0820 by Cira Stein RN 08/04/23 1100 by Ashanti Betancourt RN *Wound 08/04/23; 0835; Inci geraldine; Umbilicus; 09/03/23; 222208/04/23 0835 by Cira Stein RN 09/03/232222 by Auto-Discontinue, System *Wound 08/04/23; 0836; Inci geraldine; Lower, Medial; Abdomen; 09/03/23; 222208/04/23 0836 by Cira Stein RN 09/03/232222 by Auto-Discontinue, System *Wound 08/04/23; 0837; Inci geraldine; Left, Medial; Abdomen; 09/03/23; 222208/04/23 0837 by Cira Stein RN 09/03/232222 by Auto-Discontinue, System ETT Placement Date: 07/19 01/08; Placement Time: 840 (created via procedure documentation); Removal Date: 08/04/23; Removal Time: 90408/04/23 0841 by Markus Campbell APRN, CRNA 08/04/23 09 by Markus Campbell APRN, CRNA documented in this encounter Social History Tobacco Use Types Packs/Day Years Used Date Smoking Tobacco: Never Smokeless Tobacco: Never Alcohol Use Standard Drinks/Week Comments Not Currently 0 (1 standard drink = 0.6 oz pur e alcohol) Rare [facility] Utilities Answer Date Recorded In the past 12 months has [place], gas, oil, or water [employer] threatened to shut off services in your home? No 08/03/2023 PHQ-2 Answer Date Recorded Total Score - Questions 1-9 2 11/0 06/2022 Hunger Vital Sign Answer Date Recorded [...] place to sleep or slept in a fdc (including now)? No 08/03/2023 Education Answer Date [...] on file documented as of this encounter OR Notes * Anesthesia Postprocedure Evaluation - Markus Campbell APRN, CRNA - 08/04/2023 9:13 AM CST Patient: Luciana Yost Procedure Summary Date: 08/04/23 Room / Location: [facility] MAIN OR [facility] Anesthesia Start: 811 Anesthesia Stop: 912 Procedure: LAPAROSCOPIC APPENDECTOMY (Abdomen) Diagnosis: (appendicitis) Surgeons: Fidencio Zimmer MD Responsible Provider: Markus Campbell APRN, CRNA Anesthesia Type: general ASA Status: 1 Anesthesia Type: general Last vitals Vitals Value Taken Time BP 74/57 08/04/23 0908 Temp 36.2 ??C (97.2 ??F) 08/04/23 09 Pulse 100 08/04/23 0908 Resp 23 08/04/23 09 SpO2 100 % 08/04/23 09 Pain score: 0 Pain management: adequate Patient location during evaluation: PACU Patient participation: Sufficiently recovered to participate Level of consciousness: awake Cardiovascular status: acceptable Respiratory status: acceptable Hydration status: acceptable Anesthetic complications: no Airway patency: patent Nausea and Vomiting: none RGLASS BOAT MAKER * Anesthesia Procedure Notes - Markus Campbell APRN, CRNA - 08/04/2023 8:40 AM CSTAssociated Order(s): Intubation in OR Intubation in OR Staffing Performed: resident/COMMISSIONING SPECIALIST Resident/COMMISSIONING SPECIALIST: Markus Campbell APRN, CRNA Performed by: Markus Campbell APRN, CRNA Authorized by: Markus Campbell APRN, CRNA Overall Difficulty: Easy Procedure Details Patient Position: Sniffing Ease of mask ventilation: not attempted Intubation Site: oral Cuffed: yes Intubation Method: Direct laryngoscopy Cricoid Pressure: Yes Rapid Sequence: Yes Blade Used: MAC Blade size: #3 Stylet Used: Yes Laryngeal View: Grade I Tube Size: 7 mmAtraumatic: Atraumatic intubation RGLASS BOAT MAKER * Anesthesia Preprocedure Evaluation - Markus Campbell APRN, CRNA - 08/04/2023 7:50 AM CST Anesthesia Evaluation Procedure Information Date/Time: 08/04/23739 Procedure: LAPAROSCOPIC APPENDECTOMY (Abdomen) Location: [facility] OR [facility] Surgeons: Fidencio Zimmer MD Patient summary reviewed and Nursing notes reviewed No history of anesthetic complications No family history of anesthesia reaction Allergies: No Known Allergies Patient allergies reviewed. Medications: Current Facility-Administered Medications: ??? 0.9 % sodium chloride with potassium chloride 20 mEq/L infusion, , Intravenous, Continuous, Fidencio Zimmer MD, Last Rate: 100 mL/hr at 08/03/232139, New Bag at 08/03/232139 ??? acetaminophen (TYLENOL) tablet 650 mg, 650 mg, Oral, Q6H, 650 mg at 08/03/232139 OR acetaminophen (TYLENOL) suppository 650 mg, 650 mg, Rectal, Q6H, Fidencio Zimmer MD ??? famotidine (PEPCID) tablet 20 mg, 20 mg, Oral, BID OR famotidine (PF) (PEPCID) injection 20mg, 20 mg, Intravenous, BID, Fidencio Zimmer MD, 20 mg at 08/03/232140 ??? HEParin (porcine) injection 5,000 Units, 5,000 Units, Subcutaneous, 3 times per day, Fidencio Zimmer MD ??? HYDROmorphone (DILAUDID) injection 0.5 mg, 0.5 mg, Intravenous, Q2H PRN, Fidencio Zimmer MD, 0.5 mg at 08/04/23331 ??? ketorolac (TORADOL) injection 15 mg, 15 mg, Intravenous, Q6H PRN, Fidencio Zimmer MD ??? ondansetron (ZOFRAN-ODT) disintegrating tablet 4 mg, 4 mg, Oral, Q6H PRN OR ondansetron (ZOFRAN) injection 4 mg, 4 mg, Intravenous, Q6H PRN, Fidencio Zimmer MD, 4 mg at 08/04/23333 ??? piperacillin-tazobactam (ZOSYN) 4.5 g in sodium chloride 0.9 % 100 mL IVPB, 4.5 g, Intravenous,Q8H, Fidencio Zimmer MD, Stopped at 08/04/230 Medications Prior to Admission: fluticasone (FLONASE) 50 MCG/ACT Suspension, 2 spray in each nostril bid for 7 days then 1 spray ineach nostril bid, Disp: 16 g, Rfl: 3 hydroxychloroquine (PLAQUENIL) 200 MG Tablet, Take 400 mg by mouth daily., Disp: , Rfl: Magnesium 250 MG Tablet, Take by mouth., Disp: , Rfl: meloxicam (MOBIC) 15 MG Tablet, Take 1 Tablet by mouth daily., Disp: , Rfl: Patient medications reviewed. Airway Mallampati: II TM distance: >3 FB Neck ROM: full Dental - normal exam Pulmonary - negative ROS and normal exam breath sounds clear to auscultation Cardiovascular - negative ROS and normal exam Rhythm: regular Rate: normal Neuro/Psych - negative ROS GI/Hepatic/Renal - negative ROS Endo/Other - negative ROS Risks, benefits, alternatives discussed with:patient. Anesthesia Plan ASA 1 - emergent general intravenous induction Anesthetic plan and risks discussed with Patient. Plan discussed with attending and COMMISSIONING SPECIALIST. RGLASS BOAT MAKER RGLASS BOAT MAKER documented in this encounter Miscellaneous Notes * Addendum Note - Markus Campbell APRN, CRNA - 08/05/2023 2:35 PM FIBERGLASS BOAT MAKER Addendum created 08/05/23 1435 by Markus Campbell APRN, CRNA Clinical Note Signed RGLASS BOAT MAKER documented in this encounter Plan of Treatment Not on file documented as of this encounter Procedures Procedure Name Priority Date/Time Associated Diagnosis Comments INTUBATION IN OR Routine 08/04/2023 8:40 AM FIBERGLASS BOAT MAKER documented in this encounter Results * Intubation in OR (08/04/2023 8:40 AM FIBERGLASS BOAT MAKER) Narrative Markus Campbell APRN, CRNA - 08/04/2023 8:40 AM FIBERGLASS BOAT MAKER Markus Campbell APRN, CRNA ? 08/04/2023 ??8:41 AM Intubation in OR Staffing Performed: resident/COMMISSIONING SPECIALIST Resident/COMMISSIONING SPECIALIST: Markus Campbell APRN, CRNA Performed by: Markus Campbell APRN, CRNA Authorized by: Markus Campbell APRN, CRNA ?? Overall Difficulty: ??Easy Procedure Details Patient Position: ??Sniffing Ease of mask ventilation: not attempted Intubation Site: oral Cuffed: yes Intubation Method: ??Direct laryngoscopy Cricoid Pressure: ??Yes Rapid Sequence: ??Yes Blade Used: MAC Blade size: #3 Stylet Used: ??Yes Laryngeal View: ??Grade I Tube Size: 7 mmAtraumatic: ??Atraumatic intubation us Markus Campbell APRN, COMMISSIONING SPECIALIST ANESTHESIA ORDERABLES Final Result documented in this encounter Visit Diagnoses Not on filedocumented in this encounter Administered Medications Inactive Administered Medications - up to 3 most recent administrations Medication Order MAR Action Action Date Dose Rate Site 0.9 % sodium chloride solution Intravenous, CONTINUOUS (in OR), Starting on 08/04/23 at 0812, Until 08/04/23 at 0913 New Bag 08/04/2023 8:45 AM FIBERGLASS BOAT MAKER New Bag 08/04/2023 8:12 AM FIBERGLASS BOAT MAKER dexamethasone (DECADRON) injection Intravenous, ONCE (in OR), Starting on 08/04/23 at 0828, Until 08/04/23 at 0913 Given 08/04/2023 8:28 AM FIBERGLASS BOAT MAKER 5 mg diphenhydrAMINE (BENADRYL) injection Intravenous, ONCE (in OR), Starting on 08/04/23 at 0843, Until 08/04/23 at 0913 Given 08/04/2023 8:43 AM FIBERGLASS BOAT MAKER 2 5 mg fentaNYL (PF) (SUBLIMAZE) injection Intravenous, ONCE (in OR), Starting on 08/04/23 at 0811, Until 08/04/23 at 0913 Given 08/04/2023 8:17 AM FIBERGLASS BOAT MAKER 5 0 mcg Given 08/04/2023 8:11 AM FIBERGLASS BOAT MAKER 50 mcg ketorolac (TORADOL) injection 15 mg 15 mg, Intravenous, EVERY 6 HOURS PRN, Starting on Sun08/03/23 at 2127, Until 08/05/23 at 0023, For Moderate Pain, and pain unrelieved by Mild Analgesic medications (if ordered)., Moderate pain or more severe pain if patient requests Given 08/04/2023 8:53 AM FIBERGLASS BOAT MAKER 15 mg lidocaine 1 % injection Intravenous, ONCE (in OR), Starting on 08/04/23 at 0817, Until 08/04/23 at 0913 Given 08/04/2023 8:17 AM FIBERGLASS BOAT MAKER 60 mg midazolam (VERSED) injection Intravenous, ONCE (in OR), Starting on 08/04/23 at 0811, Until 08/04/23 at 0913 Given 08/04/2023 8:11 AM FIBERGLASS BOAT MAKER 2 mg norepinephrine in NS infusion 8 mg/250 mL Intravenous, CONTINUOUS (in OR), Starting on 08/04/23 at 0832, Until 08/04/23 at 0913 New Bag 08/04/2023 8:32 AM FIBERGLASS BOAT MAKER 2 mcg/min 3.75 mL/hr ondansetron (ZOFRAN) injection Intravenous, ONCE (in OR), Starting on 08/04/23 at 0851, Until 08/04/23 at 0913 Given 08/04/2023 8:51 AM FIBERGLASS BOAT MAKER 4 mg phenylephrine (MOHAN-SYNEPHRINE) injection Intravenous, ONCE (in OR), Starting on 08/04/23 at 0825, Until 08/04/23 at 0913 Given 08/04/2023 8:29 AM FIBERGLASS BOAT MAKER 200 mcg Given 08/04/2023 8:25 AM FIBERGLASS BOAT MAKER 100 mcg Given 08/04/2023 8:17 AM FIBERGLASS BOAT MAKER 100 mcg piperacillin-tazobactam (ZOSYN) injection Intravenous, ONCE (in OR), Starting on 08/04/23 at 0824, Until 08/04/23 at 0913 Given 08/04/2023 8:24 AM FIBERGLASS BOAT MAKER 4 .5 g propofol (DIPRIVAN) injection Intravenous, ONCE (in OR), Starting on 08/04/23 at 0818, Until 08/04/23 at 0913 Given 08/04/2023 8:18 AM FIBERGLASS BOAT MAKER 7 0 mg rocuronium (ZEMURON) injection Intravenous, ONCE (in OR), Starting on 08/04/23 at 0826, Until 08/04/23 at 0913 Given 08/04/2023 8:39 AM FIBERGLASS BOAT MAKER 2 0 mg Given 08/04/2023 8:26 AM FIBERGLASS BOAT MAKER 30 mg succinylcholine (ANECTINE) injection Intravenous, ONCE (in OR), Starting on 08/04/23 at 0819, Until 08/04/23 at 0913 Given 08/04/2023 8:19 AM FIBERGLASS BOAT MAKER 1 40 mg sugammadex (BRIDION) injection Intravenous, ONCE (in OR), Starting on 08/04/23 at 0900, Until 08/04/23 at 0913 Given 08/04/2023 9:00 AM FIBERGLASS BOAT MAKER 2 00 mg documented in this encounter Additional Health Concerns Assessment Noted Time PHQ-9 Depression Total Score: 2 04/18/20 23 1:16 PM CDT documented as of this encounter Care Teams Heavy Duty Custodian Relationship Specialty Start Date End Date Siva Burgos MD [address] [place] [address] PCP - General Internal Medicine 02/26/20 Ananth Green DPM Podiatry 04/05/22 documented as of this encounter
--- OUTSIDE RECORDS SUMMARY | 2024-06-23 18:21 | XMS_ITS | Encounter Summary ---
Author Organization [facility] Care Team Providers Care Cocoa Powder Mixer Operator Name Role Phone Siva Burgos MD Primary Care Provider [phone] Encounter Details Date Type Department Care Team (Latest Contact Info) Description 01/19/2022 Travel Social History Tobacco Use Types Packs/Day [...] documented as of this encounter Care Teams Cocoa Powder Mixer Operator Relationship Specialty Start Date End Date Siva Burgos MD [address] [place] [address] PCP - General Internal Medicine 02/26/20 documented as of this encounter
--- OUTSIDE RECORDS SUMMARY | 2024-06-23 18:21 | XMS_ITS | Encounter Summary ---
Author Organization [facility] Care Team Providers Care Surgical Garment Inspector Name Role Phone Siva Burgos MD Primary Care Provider [phone] Ananth Green DPM Unavailable Unavailable Encounter Details Date Type Department Care Team (Latest Contact Info) Description 05/17/2022 Travel Social History Tobacco Use Types Packs/Day [...] Coronavirus/COVID-19? No / Unsure 05/17/2022 8:52 AM PRODUCT SAFETY HEAD documented as of this encounter Plan of Treatment Not on file documented as of this encounter Visit Diagnoses Not on filedocumented in this encounter Additional Health Concerns Assessment Noted Time PHQ-9 Depression Total Score: 0 03/02/20 20 1:00 PM CDT documented as of this encounter Care Teams Surgical Garment Inspector Relationship Specialty Start Date End Date Siva Burgos MD [address] [place] [address] PCP - General Internal Medicine 02/26/20 Ananth Green DPM Podiatry 04/05/22 documented as of this encounter
--- OUTSIDE RECORDS SUMMARY | 2024-06-23 18:21 | XMS_ITS | Encounter Summary ---
Author Organization [facility] Address [address] [place] [address] Phone Care Team Providers Care Labourers Name Role Phone Siva Burgos MD Primary Care Provider [phone] Ananth Green DPM Unavailable Unavailable Fidencio Zimmer MD Unavailable Reason for Referral * Radiology Services (Routine) - Closed Specialty Diagnoses / Procedures Referred By Contac t Referred To Contact Radiology Diagnoses Visit for screening mammogram Procedures WERNER SCREENING BILATERAL DIGITAL W CAD W Siva Cardenas MD [address] [place] [address] Phone: tel: fax: Referral ID Status Reason Start Date Expiration Date Visits Re quested Visits Authorized [id number] Closed 11/15/2023 1 1 * Radiology Services (Routine) - Closed Specialty Diagnoses / Procedures Referred By Contac t Referred To Contact Radiology Diagnoses Visit for screening mammogram Procedures WERNER SCREENING BILATERAL DIGITAL W CAD W Siva Cardenas MD [address] [place] [address] Phone: tel: fax: Referral ID Status Reason Start Date Expiration Date Visits Re quested Visits Authorized [id number] Closed 11/15/2023 1 1 Reason for Visit * Radiology Services (Routine) - Closed Specialty Diagnoses / Procedures Referred By Travis t Referred To Contact Radiology Diagnoses Visit for screening mammogram Procedures WERNER SCREENING BILATERAL DIGITAL W CAD W SAUNDRA Siva Burgos MD [address] [place] [address] Phone: tel: fax: Referral ID Status Reason Start Date Expiration Date Visits Re quested Visits Authorized [id number] Closed 11/15/2023 1 1 Encounter Details Date Type Department Care Team (Late st Contact Info) Description 02/13/2024 1:34 PM CDT - 02/13/2024 11:59 PM CDT Hospital Encounter [facility] Mammography [address] [place] [address] Siva Burgos MD [address] [place] [address] Discharge Disposition: Discharged to home or Selfcare Social History Tobacco Use Types Packs/Day Years Used Date Smoking Tobacco: Never Smokeless Tobacco: Never Alcohol Use Standard Drinks/Week Comments Not Currently 0 (1 standard drink = 0.6 oz pur e alcohol) Rare [facility] Utilities Answer Date Recorded In [...] declined 02/12/2024 How often do you attend religion or advent serv ices? Patient declined 02/12/2024 Do you belong to any clubs o r organizations such as religion groups, unions, fraternal or athletic groups, or [...] Total Score - Questions 1-9 0 01/17 [facility] Occupat ional Health - Occupational Stress [...] place to sleep or slept in a senior care (including now)? No 08/03/2023 Housing Stability Vital Sign Answer Lio e Recorded In the last 12 months, was t here a time when you were not able to pay the mortgage or rent on time? Patient declined 02/12/20 24 Number of Times Moved in the Last Year Not on fi le 02/12/2024 At any time in the past 12 m [facility], were you homeless or living in a senior care (including now)? No 02/12/2024 Education Answer Date [...] on file documented as of this encounter Functional Status * Question Answer Date of Assessment Author Little interest or pleasure in doing things Not at all 02/13/2024 11:27 AM GILBERT JoshuaSeptember Feeling down, depressed, or hopeless Not at all 01/17 11:27 AM GILBERT JoshuaSeptember * Over the past 2 weeks, how often have you been bothered by any of the following problems? Question Answer Date of Assessment Author Patient Health Questionnaire-2 Score 0 01/17 11:27 AM GILBERT Joshua September documented as of this encounter Medications at Time of Discharge acetaminophen (TYLENOL) 325 MG Tablet Take 1 Tablet by mouth every 6 hours as needed for Fever (for temperature greater than 100.4 F.). Do not exceed 4000 mg of acetaminophen in 24 hour from all sources. 08/04/2023 fluticasone (FLONASE) 50 MCG/ACT Suspension 2 spray in each nostril bid for 7 days then 1 spray in each nostril bid 16 g 3 04/26/2023 hydroxychloroqui ne (PLAQUENIL) 200 MG Tablet Take 400 mg by mouth daily. Magnesium 250 MG Tablet Take by mouth. meloxicam (MOBIC) 15 MG Tablet Take 1 Tablet by mouth daily. 08/08/2022 documented as of this encounter Plan of Treatment Not on file documented as of this encounter Procedures Procedure Name Priority Date/Time Associated Diagnosis Comments WERNER SCREENING BILATERAL DIGITAL W CAD W SAUNDRA Routine 02/13/2024 2:05 PM CDT Visit for screening mammogram documented in this encounter Results * WERNER SCREENING BILATERAL DIGITAL W [...] to exams dated: ??03/15/2018, 04/09/2018, and 03/09/2017 [facility]. ?? BREAST TISSUE:The tissue of both [...] Nichelle Randhawa M.D. ? /glenys:02/19/2024 14:53:10 ?? Crystal Inspector(s): Aminata ??RT Madeleine(R)(M), [facility] letter sent: Normal Exam ?? Reading location: [facility] BI-RADS: 2 Benign Procedure Note Nichelle Randhawa [...] to exams dated: 03/15/2018, 04/09/2018, and 03/09/2017 [facility]. BREAST TISSUE:The tissue of both breasts [...] exam. Electronically signed by: Nichelle cherry/glenys:02/19/2024 14:53:10 Crystal Inspector(s): RT Margi(R)(M), [facility] letter sent: Normal Exam Reading location: [facility] BI-RADS: 2 Benign Siva Burgos MD IMG MAMMO ORDERABLES Final Result documented in this encounter Visit Diagnoses Diagnosis Visit for screening mammogram Other screening mammogram documented in this encounter Additional Health Concerns Assessment Noted Time PHQ-9 Depression Total Score: 0 02/13/20 24 11:27 AM CDT documented as of this encounter Care Teams Labourers Relationship Specialty Start Date End Date Siva Burgos MD [address] [place] [address] PCP - General Internal Medicine 02/26/20 Ananth Green DPM Podiatry 04/05/22 Fidencio Zimmer MD [address] [address] Consulting Physician Colon and Rectal Surgery 08/08/23 documented as of this encounter
--- OUTSIDE RECORDS SUMMARY | 2024-06-23 18:21 | XMS_ITS | Encounter Summary ---
Author Organization [facility] Address [address] [place] [address] Phone Care Team Providers Care Make Up Girl Name Role Phone Siva Burgos MD Primary Care Provider Reason for Referral * Radiology Services (Routine) - Closed Specialty Diagnoses / Procedures Referred By Travis elizabeth Referred To Contact Radiology Diagnoses Acute right ankle pain Procedures XR ANKLE 3 OR MORE VIEWS LEFT Ananth Green DPM Referral ID Status Reason Start Date Expiration Date Visits Re quested Visits Authorized [id number] Closed 01/18/2022 1 1 Encounter Details Date Type Department Care Team (Late st Contact Info) Description 01/18/2022 [facility]phone [facility] [place] [id number] Ananth Green DPM Social History Tobacco Use Types Packs/Day Years [...] AM CDT documented as of this encounter Miscellaneous Notes * Telephone Encounter - Sasha Casiano - 01/18/2022 8:48 AM CDT Left ankle xrays prior to appointment with Dr. Green for left ankle pain documented in this encounter Plan of Treatment Not on file documented as of this encounter Results * XR ANKLE 3 OR MORE VIEWS LEFT (01/20/2022 9:18 AM CDT) Anatomical Region Laterality Modality LOWER EXTREMITY, ankle Left Digital R adiography 01/22/2022 11:0 1 PM CDT Impressions 01/22/2022 11:04 PM CDT IMPRESSION: Small left ankle effusion. Narrative 01/22/2022 11:04 PM CDT EXAM DESCRIPTION: XR ANKLE 3 OR MORE VIEWS LEFT REASON FOR STUDY: Pain in right ankle and joints of right foot ?? TECHNIQUE: Three views left ankle nonweightbearing submitted without comparison. FINDINGS: No acute fractures are identified. ??The ankle joint space and mortise appear normal. ??Small ankle effusion is present. ?? Heterotopic ossification dorsal to the navicular is consistent with prior capsular sprain. ?? Nataliya deformity is noted. THIS IS AN ELECTRONICALLY VERIFIED FINAL REPORT 01/22/2022 11:01 PM - Electronically signed by ??Ron Pretty M.D. MF: GOSIA D: ??01/22/2022 11:01 PM T: ??01/22/2022 11:01 PM Report ID: [id number] Reading Location: ??[id number] Procedure Note Ron Pretty MD - 01/22/2022 EXAM DESCRIPTION: XR ANKLE 3 OR MORE VIEWS LEFT REASON FOR STUDY: Pain in right ankle and joints of right foot TECHNIQUE: Three views left ankle nonweightbearing submitted without comparison. FINDINGS: No acute fractures are identified. The ankle joint space and mortise appear normal. Small ankle effusion is present. Heterotopic ossification dorsal to the navicular is consistent with prior capsular sprain. Nataliya deformity is noted. THIS IS AN ELECTRONICALLY VERIFIED FINAL REPORT 01/22/2022 11:01 PM - Electronically signed by Ron Pretty M.D. MF: GOSIA Report ID: [id number] Reading Location: [id number] IMPRESSION: Small left ankle effusion. us Ananth Green DPMichelle IMG DIAGNOSTIC ORDERABLES Fi nal Result documented in this encounter Visit Diagnoses Diagnosis Acute right ankle pain- Primary Acute right ankle pain documented in this encounter Additional Health Concerns Assessment Noted Time PHQ-9 Depression Total Score: 0 03/02/20 20 1:00 PM CDT documented as of this encounter Care Teams Make Up Girl Relationship Specialty Start Date End Date Siva Burgos MD [address] [place] [address] PCP - General Internal Medicine 02/26/20 documented as of this encounter
--- OUTSIDE RECORDS SUMMARY | 2024-06-23 18:21 | XMS_ITS | Encounter Summary ---
Author Organization [facility] Address [address] [place] [address] Phone Care Team Providers Care Appeals Reviewer Veteran Name Role Phone Siva Burgos MD Primary Care Provider [phone] Ananth Green DPMichelle Unavailable Unavailable Encounter Details Date Type Department Care Team (Latest Contact Info) Description 05/17/2022 2:00 PM HOOP PUNCHER Physical Therapy [facility] [address], [address] [place] [address] Ananth Green, DPM Manpreet Mckeon, PT [place] Achilles tendinitis of left lower extremity (Primary Dx); Calcaneal spur of foot, left; Left foot pain; Decreased range of motion of left ankle; Left ankle pain Discharge Disposition: Discharged to home or Selfcare [...] Coronavirus/COVID-19? No / Unsure 05/17/2022 8:52 AM HOOP PUNCHER documented as of this encounter Miscellaneous Notes * Plan of Care - Manpreet Mckeon, PT - 05/17/2022 2:00 PM CST Treatment Note - Electronically signed by: MANPREET MCKEON, PT May 17, 2022 SUBJECTIVE: Patient reports that she is still having pain in her foot. She reports compliance with her HEP and it helps her pain a little. She also reports that hte red theraband is getting easier. Objective TREATMENT: Refer to PT OP Rehab Therapy Treatment flowsheet for details/minutes. HELD - Taping: A strip was applied from the plantar surface of patient's heel splitting into two smaller strips at musculotendinous junction and traveling to lateral and medial heads of the gastroc. A decompression strip was also applied around patient's posterior ankle across her achilles tendon. Manual Therapy: Patient received instrument-assisted soft tissue mobilizations using rockblade and cocoa butter to her L gastroc muscle and tendon, heel, and plantar foot with patient in prone position. - muscle restrictions noted and released Education: Patient was educated on the benefits of manual techniques. She was educated on new exercises and demonstrated understanding. She was given a green theraband for home to progress her HEP. CamSemi information: Access Code: [email or web address] ASSESSMENT: Other Details: Patient demonstrates gradual progress as evidenced by reporting a decrease in pain after therapy session this date. Patient demonstrated understanding with all exercises performed thisdate. She reported that manual techniques helped to decrease her pain in her foot this date. Plan to progress patient as appropriate.?? 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 All charges entered today are appropriate and separate from each other. PLAN Goals to be achieved by discharge. Patient will demonstrate the following: - Decrease left ankle pain to rarely greater than 5/10 or less with functional activities to be able to walk at night to bathroom without footwear with less difficulty. - Increase left ankle dorsiflexion AROM to 15 degrees or more to be able to squat to access laundrymachines with less difficulty. - Improve score on the Lower Extremity Functional Score to at least 65/80 to demonstrate overall improved function. - Demonstrates independence in therapeutic exercise program specific to relative impairments in order to optimize rehabilitation. -Ongoing, 05/17/2022, SERGIO - Report that she is working out at least 3 times per week to be able to get back to her normal daily workout schedule with greater ease. Planned Interventions This patient will likely be seen 2x/week for 12 visits from the date of initial evaluation for the following interventions: - Manual techniques including joint mobilizations, MFR, soft tissue massage, IASTM and others as needed for pain relief, soft tissue extensibility and joint mobility (04981) - Therapeutic exercise program for: motion/mobility, strengthening, flexibility, and functional limitations (89706) - Therapeutic activities for functional activity education/training and in home safety recommendations as appropriate (44958) - Neuro Muscular Re-education for body mechanics education and postural re- education as appropriate(94575) - Patient education regarding posture, ergonomics, body mechanics, HEP progression and exercise performance - Individualized home exercise program - Modalities as needed for pain relief, anti-inflammatory effect and soft tissue extensibility - Gait training (12946) - Trigger point dry needling for pain relief and reducing tension in associated musculature (74748 or 13700) Precautions: none Treatment may be altered based on patient progression and symptoms. The plan of care, as well as the benefits and risks of therapy were reviewed with the patient and the patient consented to treatment.. PUNCHER documented in this encounter Plan of Treatment Not on file documented as of this encounter Visit Diagnoses Diagnosis Achilles tendinitis of left lower extremity- Primary Achilles bursitis or tendinitis Calcaneal spur of foot, left Left foot pain Pain in limb Decreased range of motion of left ankle Left ankle pain Pain in joint, ankle and foot documented in this encounter Additional Health Concerns Assessment Noted Time PHQ-9 Depression Total Score: 0 03/02/20 20 1:00 PM CDT documented as of this encounter Care Teams Appeals Reviewer Veteran Relationship Specialty Start Date End Date Siva Burgos MD [address] [place] [address] PCP - General Internal Medicine 02/26/20 Ananth Green DPM Podiatry 04/05/22 documented as of this encounter
--- OUTSIDE RECORDS SUMMARY | 2024-06-23 18:21 | XMS_ITS | Encounter Summary ---
Author Organization [facility] Address [address] [place] [address] Phone Care Team Providers Care Floater Operator Name Role Phone Siva Burgos MD Primary Care Provider [phone] Ananth Green DPM Unavailable Unavailable Fidencio Zimemr MD Unavailable Reason for Referral * Radiology Services (Routine) - Closed Specialty Diagnoses / Procedures Referred By Contac t Referred To Contact Radiology Diagnoses Dizziness Procedures MRI BRAIN W/O CONTRAST Siva Burgos MD [address] [place] [address] Phone: tel: fax: Referral ID Status Reason Start Date Expiration Date Visits Re quested Visits Authorized [id number] Closed 11/08/2023 1 1 Reason for Visit * Reason Onset Date Comments Advice Only 11/06/2023 Encounter Details Date Type Department Care Team (Late st Contact Info) Description 11/06/2023 Telephone [facility] - Internal Medicine - [place] [address] [place] [address] Siva Burgos MD [address] [place] [address] Advice Only Social History Tobacco Use Types Packs/Day Years Used Date Smoking Tobacco: Never Smokeless Tobacco: Never Alcohol Use Standard Drinks/Week Comments Not Currently 0 (1 standard drink = 0.6 oz pur e alcohol) Rare [facility] Utilities Answer Date Recorded In the past 12 months has th e electric, gas, oil, or water company threatened to shut off services in your home? No 08/03/2023 PHQ-2 Answer Date Recorded Total Score - Questions 1-9 2 06/2022 Hunger Vital Sign Answer Date Recorded [...] in a penitentiary (including now)? No 08/03/2023 Education Answer Date [...] Telephone Encounter - Megan Wise RN - 11/08/2023 1:16 PM CDT Unable to reach, lvm * Telephone Encounter - Siva Burgos MD - 11/06/2023 3:14 PM CDT Pt should get MRI Brain without contrast for further evaluation. * Telephone Encounter - Joan Melendez - 11/06/2023 12:22 PM CDT Luciana went to urgent care and they sent her to the ER as she was not feeling well. The ER diagnosed her with Vertigo and gave her Meclizine. She left a message on our machine and is still feeling lightheaded with pressure and is requesting a return call from the Nurse. Phone - [phone] documented in this encounter Plan of Treatment Scheduled Orders Name Type Priority Associated Diagnoses Orde r Schedule MRI BRAIN W/O CONTRAST Imaging Routine Dizziness Expected: 11/08/2023, Expires: 05/10/2024 documented as of this encounter Visit Diagnoses Diagnosis Dizziness- Primary Dizziness and giddiness documented in this encounter Additional Health Concerns Assessment Noted Time PHQ-9 Depression Total Score: 2 04/18/20 23 1:16 PM CDT documented as of this encounter Care Teams Floater Operator Relationship Specialty Start Date End Date Siva Burgos MD [address] [place] [address] PCP - General Internal Medicine 02/26/20 Ananth Green DPM Podiatry 04/05/22 Fidencio Zimmer MD [address] [address] Consulting Physician Colon and Rectal Surgery 08/08/23 documented as of this encounter
--- OUTSIDE RECORDS SUMMARY | 2024-06-23 18:21 | XMS_ITS | Encounter Summary ---
Author Organization [facility] Address [address] [place] [address] Phone Care Team Providers Care Dials Supervisor Name Role Phone Siva Burgos MD Primary Care Provider [phone] Ananth Green DPM Unavailable Unavailable Reason for Visit * Reason Comments Abdominal Pain * Auth/Cert (Routine) Specialty Diagnoses / Procedures Referred By Contac t Referred To Contact Diagnoses Unspecified acute appendicitis Reviewed [place] 08/06 Fidencio Zimmer MD #[address] [address] Phone: tel: fax: Referral ID Status Reason Start Date Expiration Date Visits Re quested Visits Authorized [id number] 1 1 Encounter Details Date Type Department Care Team (Latest Contact Info) Description 08/03/2023 5:49 PM AUTHOR'S AGENT - 08/04/2023 8:50 PM AUTHOR'S AGENT Hospital Encounter [facility] Medical/Surgical Intensive Care [address] [place] [address] Vanessa Nguyen MD [address] [place] [address] Fidencio Zimmer MD #[address] [address] Appendicitis, acute Discharge Disposition: Discharged to home or Selfcare Social History Tobacco Use Types Packs/Day Years Used Date Smoking Tobacco: Never Smokeless Tobacco: Never Tobacco Cessation:Counseling Given: Not Answered Alcohol Use Standard Drinks/Week Comments Not Currently 0 (1 standard drink = 0.6 oz pur e alcohol) Rare [facility] Utilities Answer Date Recorded In the [...] place to sleep or slept in a mcc (including now)? No 08/03/2023 Education Answer Date [...] Sign Reading Time Taken Comments Blood Pressure 90/60 08/04/2023 8:15 PM AUTHOR'S AGENT Pulse 63 08/04/2023 8:15 PM AUTHOR'S AGENT Temperature 36.8 ??C (98.3 ??F) 08/04/2023 7:00 PM CS T Respiratory Rate 23 08/04/2023 8:15 PM AUTHOR'S AGENT Oxygen Saturation 97% 08/04/2023 8:15 PM AUTHOR'S AGENT Inhaled Oxygen Concentration - - Weight 62.5 kg (137 lb 12.8 oz) 08/03/2023 9:28 PM AUTHOR'S AGENT Height 160 cm (5' 3 ) 08/03/2023 9:28 PM AUTHOR'S AGENT Body Mass Index 24.41 08/03/2023 9:28 PM AUTHOR'S AGENT documented in this encounter Functional Status * Within the last year, have you been humiliated or emotionally abused in other ways by your partner or ex-partner? Answer Date of Assessment Author No 08/03/2023 9:32 PM AUTHOR'S AGENT Bryan Alicea RN * Within the last year, have you been afraid of your partner or ex-partner? Answer Date of Assessment Author No 08/03/2023 9:32 PM AUTHOR'S AGENT Bryan Alicea RN * Within the last year, have you been raped or forced to have any kind of sexual activity by your partner or ex-partner? Answer Date of Assessment Author No 08/03/2023 9:32 PM AUTHOR'S AGENT Bryan Alicea RN * Within the last year, have you been kicked, hit, slapped, or otherwise physically hurt by your partner or ex-partner? Answer Date of Assessment Author No 08/03/2023 9:32 PM AUTHOR'S AGENT Bryan Alicea RN documented as of this encounter Discharge Summaries * Fidencio Zimmer MD - 08/04/2023 7:28 PM CST SURGICAL DISCHARGE SUMMARY Admission Date: 08/03/2023 Attending Physician: Fidencio Zimmer MD Expected Discharge Date: 08/04/2023 Primary Care Physician: Siva Burgos MD Discharge Diagnoses: Active Hospital Problems Diagnosis Date Noted ??? Appendicitis, acute 08/03/2023 Resolved Hospital Problems No resolved problems to display. Surgical Procedure(s): Procedure(s) (LRB): LAPAROSCOPIC APPENDECTOMY (N/A) Summary of History and Hospital Course: Patient was admitted with acute appendicitis and had a lap appy. Postop, her Bps were low, and was given fluids and albumin, with Bps still 70s/40s. Transferred to ICU and started on luisa which was weaned off and she was discharged home after having a BM, voiding, walking, good pain control, and aurea po. Mean Bps > 65 Discharged Condition: Doing well postoperatively. Pain is moderately controlled. She is ambulating well. Current assistive devices required are: none. She is tolerating a normal diet. Flatus has beenpassed. Disposition: Home Patient Instructions: Activity: No lifting > 20 lbs for 2 weeks Assistive Devices: None Diet: Regular Diet Wound Care: Keep wound clean and dry Follow-up: follow up with Fidencio Zimmer MD in 2 weeks Discharge Medications: Discharge Medication List New acetaminophen 325 MG Tabs Commonly known as: TYLENOL 325 mg, Oral, EVERY 6 HOURS PRN, Do not exceed 4000 mg of acetaminophen in 24 hour from all sources. oxyCODONE 5 MG Tabs Commonly known as: ROXICODONE 5 mg, Oral, EVERY 4 HOURS PRN Continued fluticasone 50 MCG/ACT Susp Commonly known as: FLONASE 2 spray in each nostril bid for 7 days then 1 spray in each nostril bid hydroxychloroquine 200 MG Tabs Commonly known as: PLAQUENIL 400 mg, Oral, DAILY Magnesium 250 MG Tabs Oral meloxicam 15 MG Tabs Commonly known as: MOBIC 1 Tablet, Oral, DAILY Signed: Fidencio Zimmer MD, 08/04/2023, 7:28 PM AUTHOR'S AGENT OR'S AGENT documented in this encounter Medications at Time [...] each nostril bid 16 g 3 04/26/2023 hydroxychloroquin e (PLAQUENIL) 200 MG Tablet Take 400 mg by mouth daily. Magnesium 250 MG Tablet Take by mouth. meloxicam (MOBIC) 15 MG Tablet Take 1 Tablet by mouth daily. 08/08/2022 oxyCODONE (ROXICODONE) 5 MG TabletIndications :Acute appendicitis Take 1 Tablet by mouth every 4 hours as needed for Severe pain. 10 Tablet 08/04/2023 08/16/19 24 documented as of this encounter Progress Notes * Fidencio Zimmer MD - 08/04/2023 7:26 PM CST Multiple discussions held with BALJIT Burrell throughout the day. Patient bp is stable, with mean > 65, off luisa, has tolerated diet, had a BM, voided, walked, pain controlled. Will go ahead and d/c her home. OR'S AGENT * Fidencio Zimmer MD - 08/04/2023 10:55 AM CST Noticed by blast furnace keeper Sam that patient bp 70s/40s. Fluid given and albumin given. No change. Will put her in icu and start luisa to help. Patient was 70s/40s prior to the operation and did get intraop luisa. OR'S AGENT * Fidencio Zimmer MD - 08/03/2023 8:35 PM CST D/w Dr. Nguyen at 08/03/[id number]. Will take patient to OR for lap appy at 0800 tomorrow. OR'S AGENT documented in this encounter H&P Notes * Fidencio Zimmer MD - 08/04/2023 8:10 AM CST Surgical history and physical Assessment: Acute appendicitis PLAN: The patient was recommended to have an appendectomy. Laparoscopic and open appendectomy procedures were described in detail, the anatomy was drawn out/described, and pathophysiology of appendicitis discussed. Alternatives, benefits, and risks (including but not limited to pain, infection, bleeding, injury to surrounding structures, anesthetic risks, cardiopulmonary events) were discussed. The patient understood the above and consent was obtained for a laparoscopic possible open appendectomy. All questions were answered. Thank you for allowing me to participate in her care. Chief Complaint: Acute appendicitis Subjective: HPI: Luciana Yost is a 47 y.o. female who I was asked to see by emergency room for acute appendicitis. Started having pain periumbilical area going down to the right lower quadrant yesterday at 9 in the morning. Had some nausea. No vomiting. Normal bowel movements. Not hungry but is thirsty. No fevers or chills until she got admitted here. Pain got worse and that is why she came here. Currently, still painful, requiring fentanyl. Had a temp of 101?? overnight. Was started on antibiotics. Surgical history reviewed. Medical history reviewed. Will go ahead and take her to the operating room for laparoscopic appendectomy possible open. Patient Active Problem List Diagnosis Date Noted ??? Appendicitis, acute 08/03/2023 ??? LIAM positive 10/31/2021 No Known Allergies Prior to Admission Medications Prescriptions Last Dose Informant Patient Reported? Taking? Magnesium 250 MG Tablet 08/02/2023 Yes Yes Sig: Take by mouth. fluticasone (FLONASE) 50 MCG/ACT Suspension 07/27/2023 No Yes Si spray in each nostril bid for 7 days then 1 spray in each nostril bid hydroxychloroquine (PLAQUENIL) 200 MG Tablet 08/02/2023 Yes Yes Sig: Take 400 mg by mouth daily. meloxicam (MOBIC) 15 MG Tablet 08/02/2023 Yes Yes Sig: Take 1 Tablet by mouth daily. Facility-Administered Medications: None No current facility-administered medications on file prior to encounter. Current Outpatient Medications on File Prior to Encounter Medication Sig Dispense Refill ??? fluticasone (FLONASE) 50 MCG/ACT Suspension 2 spray in each nostril bid for 7 days then 1 sprayin each nostril bid 16 g 3 ??? hydroxychloroquine (PLAQUENIL) 200 MG Tablet Take 400 mg by mouth daily. ??? Magnesium 250 MG Tablet Take by mouth. ??? meloxicam (MOBIC) 15 MG Tablet Take 1 Tablet by mouth daily. Past Medical History Positives Diagnosis Date ??? De Quervain's disease (radial styloid tenosynovitis) ??? Raynaud disease ??? Scleroderma (HCC) ??? Screening mammogram, encounter for 08/17/2015 Past Surgical History: Procedure Laterality Date ??? CHOLECYSTECTOMY, LAPAROSCOPIC 2016 [facility], Paulino, robotic don ??? CARPAL TUNNEL RELEASE Left 2018 [facility] ??? COLONOSCOPY W/ BIOPSY 01/2023 [facility] ??? HEMORRHOID SURGERY external only ??? WISDOM TOOTH EXTRACTION Family History Problem Relation Age of Onset ??? Multiple Sclerosis Mother ??? Prostate Cancer Father ??? No Known Problems Brother ??? No Known Problems Daughter ??? No Known Problems Son ??? No Known Problems Son Social History Socioeconomic History ??? Marital status: Single Spouse name: Not on file ??? Number of children: Not on file ??? Years of education: Not on file ??? Highest education level: Associate degree: occupational, technical, or vocational program Occupational History ??? Not on file Tobacco Use ??? Smoking status: Never ??? Smokeless tobacco: Never Vaping Use ??? Vaping Use: Never used Substance and Sexual Activity ??? Alcohol use: Not Currently Comment: Rare ??? Drug use: Never ??? Sexual activity: Yes Partners: Male Other Topics Concern ??? Not on file Social History Narrative ??? Not on file Social Determinants of Health Financial Resource Needs: Not on file Food Insecurity Needs: No Food Insecurity (08/03/2023) Hunger Vital Sign ??? Worried About Running Out of Food in the Last Year: Never true ??? Ran Out of Food in the Last Year: Never true Transportation Needs: No Transportation Needs (08/03/2023) PRAPARE - Transportation ??? Lack of Transportation (Medical): No ??? Lack of Transportation (Non-Medical): No Physical Activity: Not on file Stress: Not on file Social Integration: Not on file Intimate Partner Violence: Not At Risk (08/03/2023) Humiliation, Afraid, Rape, and Kick questionnaire ??? Fear of Current or Ex-Partner: No ??? Emotionally Abused: No ??? Physically Abused: No ??? Sexually Abused: No Housing Stability: Low Risk (08/03/2023) Housing Stability Vital Sign ??? Unable to Pay for Housing in the Last Year: No ??? Number of Places Lived in the Last Year: 1 ??? Unstable Housing in the Last Year: No Review of Systems: Review of Systems Constitutional: Negative. HENT: Negative. Eyes: Negative. Respiratory: Negative. Cardiovascular: Negative. Gastrointestinal: Positive for abdominal pain and nausea. Genitourinary: Negative. Musculoskeletal: Positive for back pain, joint pain and neck pain. Skin: Negative. Neurological: Negative. Endo/Heme/Allergies: Negative. Psychiatric/Behavioral: Negative. All other systems reviewed and are negative. Pertinent items are noted in HPI. All other systems were reviewed and were negative. Objective: VITALS: BP (!) 79/50 Pulse 94 Temp 99.8 ??F (37.7 ??C) (Tympanic) Resp 23 Ht 5' 3 (1.6 m) Wt 137 lb 12.8 oz (62.5 kg) LMP 07/26/2021 SpO2 96% BMI 24.41 kg/m?? Physical Exam Vitals and nursing note reviewed. Constitutional: Appearance: Normal appearance. HENT: Head: Normocephalic and atraumatic. Right Ear: External ear normal. Left Ear: External ear normal. Nose: Nose normal. Mouth/Throat: Mouth: Mucous membranes are moist. Pharynx: Oropharynx is clear. Eyes: Extraocular Movements: Extraocular movements intact. Conjunctiva/sclera: Conjunctivae normal. Pupils: Pupils are equal, round, and reactive to light. Neck: Thyroid: No thyromegaly. Cardiovascular: Rate and Rhythm: Normal rate and regular rhythm. Heart sounds: Normal heart sounds. Pulmonary: Effort: Pulmonary effort is normal. No respiratory distress. Breath sounds: Normal breath sounds. Abdominal: General: Bowel sounds are normal. There is no distension. Palpations: Abdomen is soft. Tenderness: There is abdominal tenderness in the right lower quadrant. Positive signs include McBurney's sign. Hernia: No hernia is present. Comments: Surgical scars. Belly button ring. Musculoskeletal: General: No deformity. Normal range of motion. Cervical back: Normal range of motion and neck supple. Comments: Surgical scars. Skin: General: Skin is warm and dry. Capillary Refill: Capillary refill takes less than 2 seconds. Findings: No rash. Neurological: General: No focal deficit present. Mental Status: She is alert and oriented to person, place, and time. Coordination: Coordination is intact. Gait: Gait is intact. Psychiatric: Mood and Affect: Mood and affect normal. Behavior: Behavior normal. Thought Content: Thought content normal. Cognition and Memory: Memory normal. Judgment: Judgment normal. Data Review: Recent Labs Units 08/03/23 1800 ALBUMIN g/dL 4.5 TBIL mg/dL 0.6 ALKALINEPHO U/L 118 SGOTAST U/L 25 SGPTALT U/L 21 TOTALPROTEIN g/dL 7.3 Lab Results Component Value Date WBC 5.09 08/04/2023 HEMOGLOBIN 11.6 (L) 08/04/2023 HEMATOCRIT 34.8 (L) 08/04/2023 PLATELETCNT 175 08/04/2023 LDL 77 03/05/2020 SGPTALT 21 08/03/2023 SGOTAST 25 08/03/2023 SODIUM 144 08/04/2023 POTASSIUM 3.3 (L) 08/04/2023 CHLORIDE 115 (H) 08/04/2023 CREATININE 0.84 08/04/2023 BUN 19 (H) 08/04/2023 CO2VEN 20 (L) 08/04/2023 GLUCOSE 108 (H) 08/04/2023 I personally reviewed the above labs and radiological studies (images if available and reports), and agree with the radiologist unless stated above. CT abdomen with the acute appendicitis This note was dictated using [employer] dictation system and there may be errors in continuity coordinator. Despite proof reading the note, there may be mistakes and I apologize for those. By: Fidencio Zimmer MD, 08/04/2023, 8:10 AM AUTHOR'S AGENT [phone] (office) Primary Care Physician: Siva Burgos MD OR'S AGENT documented in this encounter Nursing Notes * Cira Stein, RN - 08/04/2023 8:58 AM CST Specimen Transported to OR SPECIMEN ROOM by Jose STEIN. OR'S AGENT * Cira Stein, RN - 08/04/2023 8:55 AM CST WHO Safety Checklist Team Debriefing completed. Additional information discussed during debrief, inrelation to patient specific assessment, includes blood loss, glycemic control, pain management, and venous thromboembolism prophylaxis, as needed. All members of the surgical team participated in the debriefing process, and each records information as applicable in their respective areas of documen tation. OR'S AGENT documented in this encounter OR Notes * OR Surgeon - Fidencio Zimmer MD - 08/04/2023 9:01 AM CST [facility] Patient Name: Luciana Yost Patient Location: OR/OR 49:01 AM AUTHOR'S AGENT Event Time In Patient In - Facility (Arrived) 08/03/2023 1749 Registration In Waiting IP Patient Sent For 08/04/2023 0720 OP Patient Sent For Surgeon Complete Anesthesia Eval Complete [employer] Reviewed Plan Patient In - Pre-op/Holding Area Pre-Op Care Begins Patient In - Prep Patient Ready for OR Out of Dpt 08/04/2023 0730 Patient In - OR 08/04/2023 0812 Patient In - Lab Procedure Start 08/04/2023 0832 Closing 08/04/2023 0848 Procedure End 08/04/2023 0858 Patient Out - OR Anesthesia Complete Patient In - PACU Care Complete - PACU Patient Out - PACU Patient In - Phase II Patient In - Recovery Care Complete - Phase II Patient Out - Phase II Patient In - Phase III Patient Ready for Visitors Patient In - Room Anesthesia Post Op Eval Complete End of Periop Anesthesia Start 08/04/2023 0812 Anesthesia Stop Surgeon: Fidencio Zimmer MD 1st Service Trainer: Eva Mckeon RN 1st Scrub: Guera Das RN Salad Maker: Cira Stein, RN Preoperative diagnosis: acute appendicitis Postoperative diagnosis: Acute appendicitis with gangrene, non perforated, large right ovary Procedure: Laparoscopic appendectomy Anesthesia: General [employer]: Markus Campbell APRN [employer] EBL: 10 mL Fluids: 1500 cc Blood Transfusion: none UOP: 40 cc Specimen: appendix, sent to pathology Tubes and Drains: None Grafts/Implants: Implants None Condition: Stable Complications: None Indications: Luciana Yost is a 47 y.o. year old female who presents with signs and symptoms of acute appendicitis. The patient was recommended to have an appendectomy. Laparoscopic and open appendectomy procedures were described in detail, the anatomy was drawn out/described, and pathophysiology of appendicitis discussed. Alternatives, benefits, and risks (including but not limited to pain, infection, bleeding, injury to surrounding structures, anesthetic risks, cardiopulmonary events) were discussed. The patient understood the above and consent was obtained for a laparoscopic possible open appendectomy. All questions were answered. Findings: Acute appendicitis non perforated, with gangrene, large right ovary Procedure: The patient was brought to the preoperative holding area. H&P was updated for any changes. Zosyn was started preoperatively. Consent was verified. Any questions were answered. After all preop criteria were met, the patient was taken to the operating room. The patient was induced under general anesthesia. Bovie grounding pad was applied. Bilateral LE SCDs were put on. The left arm was tucked with bed sheet and foam pad. The right arm was put on an arm board at 90 degrees to the bed, with foam pads on the arm board. Berger catheter was placed. The patient was then prepped and draped in the usual sterile manner. Time out was done to verify patient and procedure and everyone in the room agreed. 0.5% Marcaine was injected at all proposed incision sites prior to making any incision. A 1.5 cm incision was made infra umbilically. Dissection to the fascia was done bluntly and with electrocautery. The fascia was grabbed with Kochers and incised sharply. The peritoneum was incised. The abdominalcavity was entered. The balloon trocar was then inserted into the abdomen and inflated. The abdomenwas insufflated. The 5 mm 30 degree laparoscope was introduced into the abdomen and the underlying bowel and structures were checked for any damage. There was none. A 5 mm incision was made in the left lower quadrant and a 5 mm trocar was inserted under direct visualization. A 5 mm incision was made suprapubically and a 5 mm trocar was inserted under direct visualization. The patient was then positioned in Trendelenburg and right side up. The rest of the abdomen was surveyed and there was a very large right ovary. Using two bowel graspers, the cecum and terminal ileum were identified. The appendix was identified. It was not perforated but was definitely gangrenous, no evidence of perforation. Using the harmonic scalpel, the mesentery of the appendix was transected. This was continued until the base of the appendix was reached. The base was cleared of any flimsy tissue. A 45 mm white load stapler was introduced into the abdomen and positioned at the base of the appendix. A very small part of the cecum was also included. The stapler was closed. Visual examination was done to verify thatthe base of the appendix with a small part of the cecum were in the stapler, and not any other structures. After the stapler was closed for 15 seconds, the stapler was fired. The appendix was transected. The stapler was removed and an endopouch was introduced into the abdomen. The appendix was placed into the endopouch and closed. The string of the pouch was taken out through the umbilical trocar. The staple line was examined for any bleeding. There was no bleeding. The right lower quadrant was irrigated and suctioned. The patient was flattened. The camera was putthrough the umbilical port. Both the 5 mm trocars were removed and sites watched for any bleeding. There was none. The pneumoperitoneum was released. The umbilical trocar was removed and the endopouch was taken out. The incisions were irrigated. The umbilical site fascia was closed with a 0 Vicryl i n a figure-of-8 manner. The rest of the local was injected into and around the incision sites for atotal of 20 cc used in the case. The skin was closed with 4- 0 Monocryl suture. The abdomen was washed and dried, and surgical glue was put on all the incisions. The drapes were removed and the patient woken up and taken to the PACU then back to the floor for observation and then home later today. All counts were correct for all laps, sponges, instruments, and needles. Thank you. Fidencio Zimmer MD 08/04/2023, 9:01 AM AUTHOR'S AGENT OR'S AGENT documented in this encounter ED Notes * Chelsea Howard RN - 08/03/2023 9:11 PM CST Patient transported to [address] [place] [address] via stretcher accompanied by technician support association. Patient in stable condition attime of transfer. IV antibiotic and fluids to be continued to medical floor. OR'S AGENT * Chelsea Howard RN - 08/03/2023 9:07 PM CST Pt medicated per provider orders. Pt educated on intended effects and side effects of medication and verbalized understanding, able to provide teach back of education. OR'S AGENT * Chelsea Howard RN - 08/03/2023 8:41 PM CST Pt medicated per provider orders. Pt educated on intended effects and side effects of medication and verbalized understanding, able to provide teach back of education. Chelsea Jean-Baptiste RN - 08/03/2023 8:12 PM CST Patient ambulated to and from bathroom to provide urine sample. Tolerated well. Urine sample sent to lab. Patient now resting on stretcher with no requests at this time. ERP at bedside to go over assessment findings. Call light within reach. Family members at bedside. Will continue to monitor. Chelsea Jean-Baptiste RN - 08/03/2023 7:23 PM CST Patient placed on 2 liters oxygen via nasal cannula after Fentanyl administration. OR'S AGENT Chelsea Geiger RN - 08/03/2023 7:20 PM CST Pt medicated per provider orders. Pt educated on intended effects and side effects of medication and verbalized understanding, able to provide teach back of education. Chelsea Jean-Baptiste RN - 08/03/2023 7:07 PM CST Patient report received from BALJIT Mata. Patient resting on stretcher with no requests at this time. Family members at bedside. Call light within reach. Will continue to monitor. OR'S AGENT * Vanessa Nguyen MD - 08/03/2023 6:32 PM CSTAssociated Order(s): Critical Care Chief Complaint Patient presents with ??? Abdominal Pain Patient is a 39-year-old female who presents emergency room with abdominal pain. Pain started this morning and has progressed throughout the day. She has had nausea tonight after arriving here. She has not had any vomiting or diarrhea. Her bowel movements have been normal. She denies any urinary frequency or dysuria. She has not had any fever or chills. Patient has had history of cholecystectomy in the past. Current Facility-Administered Medications Medication Dose Route Frequency Provider Last Rate Last Admin ??? piperacillin-tazobactam (ZOSYN) 3.375 g in sodium chloride 0.9 % 100 mL IVPB 3.375 g Intravenous Once Vanessa Nguyen MD Current Outpatient Medications Medication Sig Dispense Refill ??? amitriptyline (ELAVIL) 25 MG Tablet Take 1 Tablet by mouth nightly. (Patient not taking: Reported on 01/02/2023) 30 Tablet 2 ??? fluticasone (FLONASE) 50 MCG/ACT Suspension 2 spray in each nostril bid for 7 days then 1 sprayin each nostril bid 16 g 3 ??? hydroxychloroquine (PLAQUENIL) 200 MG Tablet Take 400 mg by mouth daily. ??? Magnesium 250 MG Tablet Take by mouth. ??? meloxicam (MOBIC) 7.5 MG Tablet Take 1 Tablet by mouth daily. 30 Tablet 0 ??? methylPREDNISolone (MEDROL DOSPACK) 4 MG Tablet Therapy Pack Follow instructions on pack, take with food; Give one pack 1 Tablet 0 No Known Allergies Past Medical History Positives Diagnosis Date ??? De Quervain's disease (radial styloid tenosynovitis) ??? Screening mammogram, encounter for 08/17/2015 Past Surgical History: Procedure Laterality Date ??? CARPAL TUNNEL RELEASE Left 2018 [facility] ??? CHOLECYSTECTOMY ??? COLONOSCOPY W/ BIOPSY 01/2023 [facility] ??? HEMORRHOID SURGERY Social History Socioeconomic History ??? Marital status: Single Spouse name: Not on file ??? Number of children: Not on file ??? Years of education: Not on file ??? Highest education level: Associate degree: occupational, technical, or vocational program Occupational History ??? Not on file Tobacco Use ??? Smoking status: Never ??? Smokeless tobacco: Never Vaping Use ??? Vaping Use: Never used Substance and Sexual Activity ??? Alcohol use: Yes Comment: Rare ??? Drug use: Never ??? Sexual activity: Yes Other Topics Concern ??? Not on file Social History Narrative ??? Not on file Social Determinants of Health Financial Resource Needs: Not on file Food Insecurity Needs: Not on file Transportation Needs: Not on file Physical Activity: Not on file Stress: Not on file Social Integration: Not on file Intimate Partner Violence: Not on file Housing Stability: Not on file BP 106/63 Pulse 79 Temp 99.7 ??F (37.6 ??C) (Tympanic) Resp 14 Ht 5' 2 (1.575 m) Wt 128 lb 8.5 oz (58.3 kg) LMP 07/26/2021 SpO2 100% BMI 23.51 kg/m?? Review of Systems Constitutional: Negative for activity change, appetite change, chills and fever. HENT: Negative for congestion, ear pain, rhinorrhea, sore throat and trouble swallowing. Eyes: Negative for pain and visual disturbance. Respiratory: Negative for cough, shortness of breath and wheezing. Cardiovascular: Negative for chest pain. Gastrointestinal: Positive for abdominal pain and nausea. Negative for diarrhea and vomiting. Genitourinary: Negative for difficulty urinating and dysuria. Musculoskeletal: Negative for arthralgias and back pain. Skin: Negative for pallor. Neurological: Negative for headaches. Hematological: Negative for adenopathy. Psychiatric/Behavioral: Negative for confusion. All other systems reviewed and are negative. Physical Exam Vitals and nursing note reviewed. Constitutional: General: She is not in acute distress. Appearance: She is well-developed. She is not diaphoretic. HENT: Head: Normocephalic and atraumatic. Right Ear: External ear normal. Left Ear: External ear normal. Eyes: Conjunctiva/sclera: Conjunctivae normal. Pupils: Pupils are equal, round, and reactive to light. Neck: Trachea: No tracheal deviation. Cardiovascular: Rate and Rhythm: Normal rate and regular rhythm. Heart sounds: Normal heart sounds. No murmur heard. No friction rub. No gallop. Pulmonary: Effort: Pulmonary effort is normal. No respiratory distress. Breath sounds: Normal breath sounds. No wheezing or rales. Abdominal: General: Abdomen is flat. Bowel sounds are decreased. There is no distension. Palpations: Abdomen is soft. Tenderness: There is generalized abdominal tenderness (Moderate). There is guarding ( voluntary). There is no right CVA tenderness, left CVA tenderness or rebound. Hernia: No hernia is present. Musculoskeletal: General: No tenderness or deformity. Normal range of motion. Cervical back: Normal range of motion and neck supple. Lymphadenopathy: Cervical: No cervical adenopathy. Skin: General: Skin is warm and dry. Coloration: Skin is not pale. Findings: No erythema or rash. Neurological: Mental Status: She is alert and oriented to person, place, and time. Cranial Nerves: No cranial nerve deficit. Psychiatric: Behavior: Behavior normal. Thought Content: Thought content normal. Judgment: Judgment normal. Critical Care Performed by: Vanessa Nguyen MD Authorized by: Vanessa Nguyen MD Critical care provider statement: Critical care time (minutes): 35 Critical care time was exclusive of: Separately billable procedures and treating other patients Critical care was necessary to treat or prevent imminent or life-threatening deterioration of the following conditions: Acute appendicitis. Critical care was time spent personally by me on the following activities: Development of treatmentplan with patient or surrogate, discussions with consultants, evaluation of patient's response to treatment, examination of patient, obtaining history from patient or surrogate, ordering and performing treatments and interventions, ordering and review of laboratory studies, ordering and review of radiographic studies, pulse oximetry, re-evaluation of patient's condition and review of old charts I assumed direction of critical care for this patient from another provider in my specialty: no Care discussed with: admitting provider Recent Results (from the past 24 hour(s)) Comprehensive Metabolic Panel (Cmp) [id number] Result Value Ref Range SODIUM 142 136 - 145 mmol/L POTASSIUM 3.4 (L) 3.5 - 5.1 mmol/L CHLORIDE 107 98 - 107 mmol/L CO2, VENOUS 23 22 - 30 mmol/L ANION GAP 15.4 <18.0 mmol/L GLUCOSE 138 (H) 70 - 99 mg/dL BUN 15 5 - 18 mg/dL CREATININE, BLOOD 0.74 0.60 - 1.00 mg/dL BUN/CREATININE RATIO 20 12 - 20 ratio TOTAL PROTEIN 7.3 6.3 - 8.2 g/dL ALBUMIN 4.5 3.5 - 5.0 g/dL A/G RATIO 1.6 1.0 - 2.2 CALCIUM 9.7 8.7 - 10.5 mg/dL T BILI 0.6 0.2 - 1.2 mg/dL SGOT (AST) 25 5 - 34 U/L SGPT (ALT) 21 0 - 55 U/L ALKALINE PHOSPHATASE 118 40 - 150 U/L GFR, ESTIMATED >60 >=60 GFR, EST. >60 >=60 GFR, EST. NONAFRICAN >60 >=60 CBC with Auto Differential Result Value Ref Range WBC 13.66 (H) 4.00 - 12.00 10(3)/mcL RBC 4.47 3.80 - 5.30 10(6)/mcL HEMOGLOBIN (HGB) 13.8 12.0 - 15.8 g/dL HEMATOCRIT (HCT) 40.6 36.0 - 47.0 % MCV 90.8 82.0 - 96.0 fL MCH 30.9 26.0 - 34.0 pg MCHC 34.0 31.0 - 36.0 g/dL PLATELET COUNT 270 140 - 440 10(3)/mcL RDW 12.0 11.8 - 15.5 % MPV 9.7 9.7 - 12.4 fL NEUTROPHILS 88.6 (H) 47.0 - 73.0 % LYMPHOCYTES 4.0 (L) 18.0 - 42.0 % MONOCYTES 6.7 4.0 - 12.0 % EOSINOPHILS 0.1 0.0 - 5.0 % BASOPHILS 0.6 0.0 - 1.0 % ABSOLUTE NEUTROPHILS 12.10 (H) 1.60 - 7.70 10(3)/mcL ABSOLUTE LYMPHOCYTES 0.55 (L) 1.30 - 3.20 10(3)/mcL ABSOLUTE MONOCYTES 0.92 0.20 - 1.00 10(3)/mcL ABSOLUTE EOSINOPHIL 0.01 0.00 - 0.40 10(3)/mcL ABSOLUTE BASOPHILS 0.08 0.00 - 0.10 10(3)/mcL NRBC PER 100 WBC 0 RESULTS ARE CONSISTENT WITH PERIPHERAL SMEAR REVIEW Yes ELLIPTOCYTES Present STOMATOCYTES Present Imaging Results CT ABDOMEN PELVIS W/ CONTRAST (In process) Result time 08/03/23 18:40:55 Medical Decision Making Differential diagnosis: Diverticulitis, urinary tract infection, appendicitis, pancreatitis Clinical Impression 1. Acute appendicitis Disposition: Admit Patient presents emergency room complaining of abdominal pain. Workup included CBC showing white count of 13.66 with a left shift. CMP was unremarkable. CT scan revealed a non perforated acute appendicitis. Went over these results with the patient and explained the need for admission and surgery. Patient was given Zosyn in the emergency room. I spoke to Dr. Zimmer, surgeon on-call, who has accepted the patient for observation. OR'S AGENT * Mary Delgado RN - 08/03/2023 6:30 PM CST Patient is resting in room with call light at bedside. Patient informed about wait time and verbalizes understanding. Patient denies needs at this time and verbalizes understanding that RN will complete hourly rounding. OR'S AGENT * Stephanie Cantu RN - 08/03/2023 5:56 PM CST Pt to ED room 8 with c/o constant low abdominal cramping since this morning. Denies n/v/d or constipation. Last BM was this morning and normal for pt. Call light in reach. OR'S AGENT documented in this encounter Miscellaneous Notes * Interdisciplinary - Yumiko Da Silva, BALJIT - 08/04/2023 8:50 PM AUTHOR'S AGENT Patient discharged to home, left ICU via wheelchair, ambulatory to car with steady gait. Pt's family at bedside when discussing all follow up care appointments. New medications were reviewed and understood. 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 All discharge teaching was done with a teach-back method. All IV's were removed. All belongings were sent with the pt. Pt A&Ox4 with no complaints of pain, VSS. No acute distress noted. YUMIKO DA SILVA RN OR'S AGENT OR'S AGENT * Plan of Care - Yumiko Da Silva RN - 08/04/2023 7:43 PM AUTHOR'S AGENT Problem: Adult Inpatient Plan of Care Goal: Plan of Care Review Outcome: Outcome Achieved Goal: Patient-Specific Goal (Individualized) Outcome: Outcome Achieved Goal: Absence of Hospital-Acquired Illness or Injury Outcome: Outcome Achieved Goal: Optimal Comfort and Wellbeing Outcome: Outcome Achieved Goal: Readiness for Transition of Care Outcome: Outcome Achieved Problem: Surgery Nonspecified Goal: Absence of Bleeding Outcome: Outcome Achieved Goal: Effective Bowel Elimination Outcome: Outcome Achieved Goal: Fluid and Electrolyte Balance Outcome: Outcome Achieved Goal: Blood Glucose Level Within Targeted Range Outcome: Outcome Achieved Goal: Absence of Infection Signs and Symptoms Outcome: Outcome Achieved Goal: Anesthesia/Sedation Recovery Outcome: Outcome Achieved Goal: Optimal Pain Control and Function Outcome: Outcome Achieved Goal: Nausea and Vomiting Relief Outcome: Outcome Achieved Goal: Effective Urinary Elimination Outcome: Outcome Achieved Goal: Effective Oxygenation and Ventilation Outcome: Outcome Achieved Problem: Fall Injury Risk Goal: Absence of Fall and Fall-Related Injury Outcome: Outcome Achieved OR'S AGENT * Interdisciplinary - Yumiko Da Silva RN - 08/04/2023 7:30 PM AUTHOR'S AGENT Spoke to Dr. Zimmer over the phone, relayed pt's report of dizziness and trending BP's. Pt ok to d/chome, per provider. OR'S AGENT * Interdisciplinary - Yumiko Da Silva RN - 08/04/2023 7:00 PM AUTHOR'S AGENT Patient bedside shift report received from BALJIT Burrell. Assumed pt care at this time. IVF's and gttrates verified. SBP goal verified, BP trends gone over. Pt ambulated to the bathroom with a slow steady gait with standby assist. Pt ambulated back to chair, sitting up with call light in reach. Pt is A&Ox4, updated to plan of care. No acute distress noted. OR'S AGENT * Plan of Care - Ashanti Betancourt RN - 08/04/2023 5:10 PM CST Problem: Adult Inpatient Plan of Care Goal: Plan of Care Review Outcome: Ongoing (see interventions/notes) Flowsheets (Taken 08/04/2023 1724) Plan of Care Reviewed With: patient Progress: progress toward functional goals as expected Today's Goal: Patient will maintain SBP >90 this shift. Outcome Evaluation: Goal met. Does the patient need assistance with discharge and/or transitioning to the next level of care?: No, no needs anticipated Goal: Patient-Specific Goal (Individualized) Outcome: Ongoing (see interventions/notes) Goal: Absence of Hospital-Acquired Illness or Injury Outcome: Ongoing (see interventions/notes) Goal: Optimal Comfort and Wellbeing Outcome: Ongoing (see interventions/notes) Goal: Readiness for Transition of Care Outcome: Ongoing (see interventions/notes) Problem: Surgery Nonspecified Goal: Absence of Bleeding Outcome: Ongoing (see interventions/notes) Goal: Effective Bowel Elimination Outcome: Ongoing (see interventions/notes) Goal: Fluid and Electrolyte Balance Outcome: Ongoing (see interventions/notes) Goal: Blood Glucose Level Within Targeted Range Outcome: Ongoing (see interventions/notes) Goal: Absence of Infection Signs and Symptoms Outcome: Ongoing (see interventions/notes) Goal: Anesthesia/Sedation Recovery Outcome: Ongoing (see interventions/notes) Goal: Optimal Pain Control and Function Outcome: Ongoing (see interventions/notes) Goal: Nausea and Vomiting Relief Outcome: Ongoing (see interventions/notes) Goal: Effective Urinary Elimination Outcome: Ongoing (see interventions/notes) Goal: Effective Oxygenation and Ventilation Outcome: Ongoing (see interventions/notes) Problem: Fall Injury Risk Goal: Absence of Fall and Fall-Related Injury Outcome: Ongoing (see interventions/notes) OR'S AGENT * Ryan - Mariaelena Padron RN - 08/04/2023 10:19 AM AUTHOR'S AGENT Notified Dr. Zimmer of continued hypotension. Pt will be transferred to ICU for pharmacological intervention and monitoring. Notified Crescencio Dexter. Per Guerita, pt will go to ICU bed 5. OR'S AGENT * Mariaelena Doe RN - 08/04/2023 9:[address] Zimmer notified of no change in BP after fluid bolus. Verbal order given for IV albumin. Will update after infusion. OR'S AGENT * Mariaelena Doe RN - 08/04/2023 9:10 AM CST Anesthesia and Dr. Zimmer aware of persistent hypotension. Will continue with fluid bolus. OR'S AGENT * Plan of Care - Mariaelena Padron RN - 08/04/2023 8:13 AM CST Patient will be discharged from PACU when criteria has been met. OR'S AGENT * Ryan - Carlie Anders RN - 08/04/2023 7:37 AM CST Patient resting per bed. Awake and alert. Up to bathroom. Voided clear yellow urine. No complaints of pain or discomfort at this time. All fall and safety precautions in place. Patient left floor viabed for pre op, stable. Will continue to assess when patient returns OR'S AGENT * Interdisciplinary - Mariaelena Padron RN - 08/04/2023 7:30 AM CST Pt in PACU for preop monitoring @ 0730. OR'S AGENT * Plan of Care - Julianna Alicea RN - 08/04/2023 2:58 AM CST Problem: Adult Inpatient Plan of Care Goal: Plan of Care Review Outcome: Ongoing (see interventions/notes) Flowsheets (Taken 08/04/2023255) Plan of Care Reviewed With: patient Progress: improving Today's Goal: Pain control Outcome Evaluation: Goal met, patient given PRN pain medication per MAR, IVF and ABX infuse per MAR, patient NPO for AM surgery Does the patient need assistance with discharge and/or transitioning to the next level of care?: No, no needs anticipated Goal: Patient-Specific Goal (Individualized) Outcome: Ongoing (see interventions/notes) Flowsheets (Taken 08/04/2023 0256) Today's Goal: Pain control Goal: Absence of Hospital-Acquired Illness or Injury Outcome: Ongoing (see interventions/notes) Intervention: Prevent and Manage VTE (Venous Thromboembolism) Risk Flowsheets (Taken 08/04/2023 0256) VTE Prevention/Management: sequential compression devices on Goal: Optimal Comfort and Wellbeing Outcome: Ongoing (see interventions/notes) Intervention: Monitor Pain and Promote Comfort Flowsheets (Taken 08/04/2023 0256) Pain Management Interventions: single medication modality position adjusted quiet environment facilitated relaxation techniques promoted pillow support provided breathing exercises care clustered Intervention: Provide Person-Centered Care Flowsheets (Taken 08/03/2023 2237) Trust Relationship/Rapport: care explained choices provided emotional support provided empathic listening provided questions answered questions encouraged safe/supportive environment facilitated respect patient/family decisions provided thoughts/feelings acknowledged Goal: Readiness for Transition of Care Outcome: Ongoing (see interventions/notes) OR'S AGENT * Interdisciplinary - Julianna Alicea RN - 08/03/2023 9:45 PM CST Initial Skin Assessment Patient assessed with 2nd RN Bella Gibbs noted: none PRESSURE INJURY AND MOISTURE MANAGEMENT RECOMMENDATIONS: Moisture Management: Patient is Continent and has no moisture problems at this time Pressure Injury Prevention Interventions: Patient is independent in Room and/or Bed Specialty Surface Selection: Moisture Score: 4-->rarely moist Mobility Score: 4-->no limitation Total Ignacio Score: 23 Patient has intact skin on the pelvis and trunk: Bed Selection based on Ignacio Moisture and Mobility: Moisture 4: Mobility 3 or 4: No Specialty Bed Indicated Wound care: N/A JULIANNA ALICEA RN OR'S AGENT * Interdisciplinary - Julianna Alicea RN - 08/03/2023 9:24 PM CST Patient arrived to room 233 via stretcher with family at bedside, all personal belongings in tow, IVF infusing upon arrival OR'S AGENT documented in this encounter Plan of Treatment Not on file documented as of this encounter Procedures Procedure Name Priority Date/Time Associated Diagnosis Comments PATHOLOGY SURGICAL Routine 08/04/2023 8: 50 AM AUTHOR'S AGENT LAPAROSCOPIC APPENDECTOMY 08/04/2023 7:52 AM AUTHOR'S AGENT appendicitis CBC WITH AUTO DIFFERENTIAL Routine 08/04/2023 6:17 AM AUTHOR'S AGENT MAGNESIUM (MG) Routine 08/04/2023 6:17 AM AUTHOR'S AGENT COMPLETE BLOOD COUNT (CBC) WITH DIFF Routine 08/04/2023 6:17 AM AUTHOR'S AGENT BASIC METABOLIC PANEL W/ CALCIUM TOTAL Routine 08/04/2023 6:17 AM AUTHOR'S AGENT RHYTHM STRIP 08/04/2023 12:00 AM AUTHOR'S AGENT RHYTHM STRIP 08/04/2023 12:00 AM AUTHOR'S AGENT UR TEST QUAL STAT 08/03/2023 8:57 PM AUTHOR'S AGENT URINALYSIS REFLEX IF INDICATED BY ABNORMAL RESULTS STAT 08/03/2023 8:[address] ABDOMEN PELVIS W/ CONTRAST Stat with Interpretation 08/03/2023 7:47 PM AUTHOR'S AGENT CRITICAL CARE Routine 08/03/2023 6:32 PM AUTHOR'S AGENT CBC WITH AUTO DIFFERENTIAL STAT 08/03/2023 6:00 PM AUTHOR'S AGENT LIPASE STAT 08/03/2023 6:00 PM AUTHOR'S AGENT CMP (COMPREHENSIVE METABOLIC PANEL) STAT 08/03/2023 6:00 PM AUTHOR'S AGENT COMPLETE BLOOD COUNT (CBC) WITH DIFF STAT 08/03/2023 6:00 PM AUTHOR'S AGENT documented in this encounter Results * Pathology Surgical (08/04/2023 8:50 AM AUTHOR'S AGENT) Case Report Surgical Pathology Report ? Case: [id number] ? Authorizing Provider: ??Fidencio Zimmer MD ? Collected: ? 08/04/2023 08:50 AM ? Ordering Location: ? [facility] ? Received: ?08/06/2023 08:50 AM ? [facility] ? Main OR ? Pathologist: ? Debra Lake MD PhD ? Specimen: ?Appendix, APPENDIX ? 08/07/2023 10:09 AM [facility] FINAL DIAGNOSIS Appendix, appendectomy: - Acute appendicitis and periappendicitis 08/07/2023 10:09 AM [facility] Pre-Operative Diagnosis appendicitis 08/07/2023 10:09 AM [facility] Gross Description A. APPENDIX The specimen presents in a single formalin container for gross and microscopic examination, labeled with the patient's name, Luciana Yost, and designated appendix. The specimen consists of a single vermiform appendix measuring 9.5 cm in length and has a maximum diameter of up to 1.7 cm. The serosal surfaces are dark brown, extremely congested, and hemorrhagic. There are also areas of light mercado exudate. The proximal end of the appendix is stapled closed. Upon sectioning the appendix, there is a dark green-brown fecalith identified measuring up to 0.7 cm in greatest dimension. Further sectioning through the appendix reveals a dilated lumen that is necrotic and green-nye in appearance. Bell Spinner sample submitted din cassette A1. KS/sb Total time of fixation is 60 hours, 56 minutes. 08/07/2023 10:09 AM [facility] Microscopic Description Microscopic examination was performed which supports the final diagnosis. All control tissues stained appropriately. 08/07/2023 10:09 AM [facility] Tissue APPENDIX STRUCTURE / Unknown 08/04/2023 8:50 AM AUTHOR'S AGENT 08/06/2023 8:50 AM AUTHOR'S AGENT Fidencio Zimmer MD PATHOLOGY/CYTOLOGY ORDERABLES Fi nal Result [facility] [place] [address] * (ABNORMAL) CBC with Auto Differential (08/04/2023 6:17 AM [facility]) Only the most recent of2 resultswithin the time period is included. WBC 5.09 4.00 - 12.00 10(3)/mcL 08/04/2023 7:19 AM [facility] RBC 3.77(L) 3.80 - 5.30 10(6)/mcL 08/04/2023 7:19 AM [facility] HEMOGLOBIN (HGB) 11.6(L) 12.0 - 15.8 g/dL 08/04/2023 7:19 AM [facility] HEMATOCRIT (HCT) 34.8(L) 36.0 - 47.0 % 08/04/2023 7:19 AM [facility] MCV 92.3 82.0 - 96.0 fL 08/04/2023 7:19 AM [facility] MCH 30.8 26.0 - 34.0 pg 08/04/2023 7:19 AM [facility] MCHC 33.3 31.0 - 36.0 g/dL 08/04/2023 7:19 AM [facility] PLATELET COUNT 175 140 - 440 10(3)/mcL 08/04/2023 7:19 AM [facility] RDW 12.4 11.8 - 15.5 % 08/04/2023 7:19 AM [facility] MPV 9.5(L) 9.7 - 12.4 fL 08/04/2023 7:19 AM [facility] NEUTROPHILS 91.7(H) 47.0 - 73.0 % 08/04/2023 7:19 AM [facility] LYMPHOCYTES 7.5(L) 18.0 - 42.0 % 08/04/2023 7:19 AM [facility] MONOCYTES 0.6(L) 4.0 - 12.0 % 08/04/2023 7:19 AM [facility] EOSINOPHILS 0.0 0.0 - 5.0 % 08/04/2023 7:19 AM [facility] BASOPHILS 0.2 0.0 - 1.0 % 08/04/2023 7:19 AM [facility] ABSOLUTE NEUTROPHILS 4.67 1.60 - 7.70 10(3)/[facility] 08/04/2023 7:19 AM [facility] ABSOLUTE LYMPHOCYTES 0.38(L) 1.30 - 3.20 10(3)/[facility] 08/04/2023 7:19 AM [facility] ABSOLUTE MONOCYTES 0.03(L) 0.20 - 1.00 10(3)/[facility] 08/04/2023 7:19 AM [facility] ABSOLUTE EOSINOPHIL 0.00 0.00 - 0.40 10(3)/[facility] 08/04/2023 7:19 AM [facility] ABSOLUTE BASOPHILS 0.01 0.00 - 0.10 10(3)/[facility] 08/04/2023 7:19 AM [facility] NRBC PER 100 WBC 0 08/04/19 7:19 AM [facility] RESULTS ARE CONSISTENT WITH PERIPHERAL SMEAR REVIEW Yes 08/04/2023 7:19 AM [facility] Blood Venipuncture / Unknown 08/04/2023 6:17 AM [facility] 08/04/2023 6:50 AM AUTHOR'S AGENT us Fidencio Zimmer MD HEMATOLOGY ORDERABLES Final Resu lt [facility] [place] [address] * (ABNORMAL) Magnesium (Mg) (08/04/2023 6:17 AM AUTHOR'S AGENT) MAGNESIUM 1.4(L) 1.6 - 2.6 mg/dL 08/04/2023 7:24 AM AUTHOR'S AGENT [facility] Blood Venipuncture / Unknown 08/04/2023 6:17 AM AUTHOR'S AGENT 08/04/2023 6:50 AM AUTHOR'S AGENT us Fidencio Zimmer MD CHEMISTRY ORDERABLES Final Resul t Performing Organization Address City/[facility]/ZIP Co de Phone Number [facility] [place] [address] * (ABNORMAL) BMP with Ca, Total (08/04/2023 6:17 AM AUTHOR'S AGENT) SODIUM 144 136 - 145 mmol/L 08/04/2023 7:24 AM AUTHOR'S AGENT [facility] POTASSIUM 3.3(L) 3.5 - 5.1 mmol/L 08/04/2023 7:24 AM [facility] CHLORIDE 115(H) 98 - 107 mmol/L 08/04/2023 7:24 AM [facility] CO2, VENOUS 20(L) 22 - 30 mmol/L 08/04/2023 7:24 AM [facility] ANION GAP 12.3 <18.0 mmol/L 08/04/2023 7:24 AM [facility] GLUCOSE 108(H) 70 - 99 mg/dL 08/04/2023 7:24 AM [facility] BUN 19(H) 5 - 18 mg/dL 08/04/2023 7:24 AM [facility] CREATININE, BLOOD 0.84 0.60 - 1.00 mg/dL 08/04/2023 7:24 AM AUTHOR'S AGENT [facility] BUN/CREATININE RATIO 23(H) 12 - 20 ratio 08/04/2023 7:24 AM AUTHOR'S AGENT [facility] CALCIUM 8.1(L) 8.7 - 10.5 mg/dL 08/04/2023 7:24 AM AUTHOR'S AGENT [facility] GFR, ESTIMATED >60 >=60 08/04/2023 7:24 AM AUTHOR'S AGENT [facility] Comment: Creatinine Clearance is the preferred criteria for selecting drug dose adjustments in renally impaired patients. ??The GFR is provided as additional pertinent clinical information. GFR is reported in mL/min/1.73 sq m. Calculation based on the Chronic Kidney Disease Epidemiology Collaboration (CKD- EPI) equation refit without adjustment for race. GFR, EST. >60 >=60 024 7:24 AM AUTHOR'S AGENT [facility] GFR, EST. NONAFRICAN >60 >=60 08/04/2023 7:24 AM AUTHOR'S AGENT [facility] Blood Venipuncture / Unknown 08/04/2023 6:17 AM AUTHOR'S AGENT 08/04/2023 6:50 AM AUTHOR'S AGENT us Fidencio Zimmer MD CHEMISTRY ORDERABLES Final Resul t Performing Organization Address City/[facility] Co de Phone Number [facility] [place] [address] * RHYTHM STRIP (08/04/2023 12:00 AM AUTHOR'S AGENT) Only the most recent of2 resultswithin the time period is included. 08/04/2023 us Provider Scan IMG ECG ORDERABLES Final Result Performing Organization Address City/[facility]/ZIP Co de Phone Number RESULTING AGENCY * Ur Test Qual (08/03/2023 8:57 PM AUTHOR'S AGENT) PREG TEST,MONOCLONA L Negative 08/03/2023 9:12 PM AUTHOR'S AGENT [facility] Urine Non-Phlebotomy Collection / Unknown 08/03/2023 8:57 PM AUTHOR'S AGENT 08/03/2023 8:57 PM AUTHOR'S AGENT us Vanessa Nguyen MD URINE ORDERABLES Final Re sult [facility] [place] [address] * (ABNORMAL) URINALYSIS REFLEX IF INDICATED BY ABNORMAL RESULTS (08/03/2023 8:12 PM AUTHOR'S AGENT) SPECIFIC GRAVITY 1.015 1.003 - 1.030 08/03/2023 8:47 PM AUTHOR'S AGENT [facility] URINE PH 9.0 5.0 - 9.0 08/03/2023 8:47 PM AUTHOR'S AGENT [facility] WBC ESTERASE Negative Negative 08/03/2023 8:47 PM AUTHOR'S AGENT [facility] NITRITE Negative Negative 08/03/2023 8:47 PM AUTHOR'S AGENT [facility] PROTEIN, RANDOM URINE Negative Negative 08/03/2023 8:47 PM AUTHOR'S AGENT [facility] URINE GLUCOSE, QUAL Negative Negative 08/03/2023 8:47 PM AUTHOR'S AGENT [facility] URINE KETONES 5 mg/dL(A) Negative 08/03/2023 8:47 PM AUTHOR'S AGENT [facility] UROBILINOGEN Normal Normal mg/dL 08/03/2023 8:47 PM AUTHOR'S AGENT [facility] URINE BLOOD Negative Negative moi/ul 08/03/2023 8:47 PM AUTHOR'S AGENT [facility] URINALYSIS COLOR Yellow 08/03/19 24 8:47 PM AUTHOR'S AGENT [facility] URINALYSIS CLARITY Clear 08/03/2023 8:47 PM AUTHOR'S AGENT [facility] Urine URINE SPECIMEN COLLECTION, CLEAN CATCH / Unknown Non-Phlebotomy Collection / Unknown 08/03/2023 8:12 PM AUTHOR'S AGENT 08/03/2023 8:28 PM AUTHOR'S AGENT us Richi Kent MD URINE ORDERABLES Final Res ult [facility] [place] [address] * CT ABDOMEN PELVIS W/ CONTRAST (08/03/2023 7:47 PM AUTHOR'S AGENT) Anatomical Region Laterality Modality Abdomen N/A Computed Tomogra phy 08/03/2023 8:40 PM AUTHOR'S AGENT Impressions 08/03/2023 8:43 PM AUTHOR'S AGENT IMPRESSION: Changes of acute appendicitis without evidence of perforation or abscess. 7.6 cm hypodensity right pelvic adnexa likely represents an ovarian cyst. Ultrasound is suggested to better characterize. I called these critical results by phone at time of dictation to DR. VANESSA NGUYEN Narrative 08/03/2023 8:43 PM AUTHOR'S AGENT EXAM DESCRIPTION: ?? CT ABDOMEN PELVIS W/ CONTRAST REASON FOR STUDY: ?? C/o low abd pain and cramping today. ?? TECHNIQUE: CT scan of the abdomen and pelvis performed with intravenous and ??without ??oral contrast using helical scanning technique with dynamic intravenous contrast injection. Reconstructed coronal and sagittal MPR images reviewed. All images stored on PACS. Automated exposure control was used as a dose optimization technique for this examination. CONTRAST TYPE/DOSE: ?? 64 ML of IOPAMIDOL 76 % IV SOLN ??injected via ?? Intravenous COMPARISON: None available FINDINGS: LOWER CHEST: ?? No significant pulmonary abnormalities. No effusion. LIVER: ?? Normal size. ??No identified cystic or solid masses. GALLBLADDER: ?? Surgically absent. BILE DUCTS: ?? Mildly prominent intra and extrahepatic bile ducts consistent with reservoir effect post cholecystectomy. ??Please correlate clinically and with laboratory values. SPLEEN: ?? Normal size. ??Anterior 1.1 cm hypodensities suggesting probable cysts or hemangioma. PANCREAS: ?? No identified cystic or solid masses. No significant calcifications. No adjacent inflammation or peripancreatic fluid collections. Pancreatic duct not dilated. ?? ADRENALS: ?? Normal. KIDNEYS/URINARY TRACT: ?? Right kidney demonstrates punctate midpole caliceal stone. ??No hydronephrosis or hydroureter. Left kidney demonstrates punctate midpole caliceal stone with no hydronephrosis or hydroureter. ?Urinary bladder is unremarkable. GI: ?? Stomach and transverse duodenum appear unremarkable. ??Loops of small bowel have normal caliber. ??Terminal ileum is unremarkable. Cecal tip is unremarkable. ??The appendix is identified with surrounding induration. ??The appendix is dilated measuring 1.1 cm contains mottled debris. ??Findings most consistent with acute appendicitis and surrounding induration. ??No adjacent fluid or air collection to suggest angle perforation. ??No adjacent abscess or free intraperitoneal air. Remainder of colon is unremarkable. PERITONEUM: ?? No ascites or free air. RETROPERITONEUM: ?? No mass or adenopathy. REPRODUCTIVE: ?? 7.6 x 5.3 cm hypodensity right pelvic adnexa just posterior to the ovary likely represents an ovarian cyst. ?? Ultrasound is suggested to better characterize. ??Uterus and left ovary appear unremarkable. VASCULATURE: ?? No abdominal aortic aneurysm. MUSCULOSKELETAL: ?? No significant abnormality. OTHER: ?? No other abnormality. THIS IS AN ELECTRONICALLY VERIFIED FINAL REPORT 08/03/2023 8:40 PM - Electronically signed by ??Stepan Obrien M.D. RB: DEJUAN D: ??08/03/2023 8:40 PM T: ??08/03/2023 8:40 PM Report ID: [id number] Reading Location: ??[id number] Procedure Note Stepan Obrien MD - 08/03/2023 EXAM DESCRIPTION: CT ABDOMEN PELVIS W/ CONTRAST REASON FOR STUDY: C/o low abd pain and cramping today. TECHNIQUE: CT scan of the abdomen and pelvis performed with intravenous and without oral contrast using helical scanning technique with dynamic intravenous contrast injection. Reconstructed coronal and sagittal MPR images reviewed. All images stored on PACS. Automated exposure control was used as a dose optimization technique for this examination. CONTRAST TYPE/DOSE: 64 ML of IOPAMIDOL 76 % IV SOLN injected via Intravenous COMPARISON: None available FINDINGS: LOWER CHEST: No significant pulmonary abnormalities. No effusion. LIVER: Normal size. No identified cystic or solid masses. GALLBLADDER: Surgically absent. BILE DUCTS: Mildly prominent intra and extrahepatic bile ducts consistent with reservoir effect post cholecystectomy. Please correlate clinically and with laboratory values. SPLEEN: Normal size. Anterior 1.1 cm hypodensities suggesting probable cysts or hemangioma. PANCREAS: No identified cystic or solid masses. No significant calcifications. No adjacent inflammation or peripancreatic fluid collections. Pancreatic duct not dilated. ADRENALS: Normal. KIDNEYS/URINARY TRACT: Right kidney demonstrates punctate midpole caliceal stone. No hydronephrosis or hydroureter. Left kidney demonstrates punctate midpole caliceal stone with no hydronephrosis or hydroureter. Urinary bladder is unremarkable. GI: Stomach and transverse duodenum appear unremarkable. Loops of small bowel have normal caliber. Terminal ileum is unremarkable. Cecal tip is unremarkable. The appendix is identified with surrounding induration. The appendix is dilated measuring 1.1 cm contains mottled debris. Findings most consistent with acute appendicitis and surrounding induration. No adjacent fluid or air collection to suggest angel perforation. No adjacent abscess or free intraperitoneal air. Remainder of colon is unremarkable. PERITONEUM: No ascites or free air. RETROPERITONEUM: No mass or adenopathy. REPRODUCTIVE: 7.6 x 5.3 cm hypodensity right pelvic adnexa just posterior to the ovary likely represents an ovarian cyst. Ultrasound is suggested to better characterize. Uterus and left ovary appear unremarkable. VASCULATURE: No abdominal aortic aneurysm. MUSCULOSKELETAL: No significant abnormality. OTHER: No other abnormality. THIS IS AN ELECTRONICALLY VERIFIED FINAL REPORT 08/03/2023 8:40 PM - Electronically signed by Stepan Obrien M.D. RB: DEJUAN Report ID: [id number] Reading Location: [place] [address] IMPRESSION: Changes of acute appendicitis without evidence of perforation or abscess. 7.6 cm hypodensity right pelvic adnexa likely represents an ovarian cyst. Ultrasound is suggested to better characterize. I called these critical results by phone at time of dictation to DR. VANESSA NGUYEN us Vanessa Nguyen MD IMG CT ORDERABLES Final R esult * Critical Care (08/03/2023 6:32 PM AUTHOR'S AGENT) Narrative Vanessa Nguyen MD - 08/03/2023 6:32 PM AUTHOR'S AGENT Vanessa Nguyen MD ? 08/03/2023 ??8:29 PM Critical Care Performed by: Vanessa Nguyen MD Authorized by: Vanessa Nguyen MD ?? Critical care provider statement: ??Critical care time (minutes): ??35 ??Critical care time was exclusive of: ??Separately billable procedures and treating other patients ??Critical care was necessary to treat or prevent imminent or life-threatening deterioration of the following conditions: Acute appendicitis. ??Critical care was time spent personally by me on the following activities: ??Development of treatment plan with patient or surrogate, discussions with consultants, evaluation of patient's response to treatment, examination of patient, obtaining history from patient or surrogate, ordering and performing treatments and interventions, ordering and review of laboratory studies, ordering and review of radiographic studies, pulse oximetry, re-evaluation of patient's condition and review of old charts ??I assumed direction of critical care for this patient from another provider in my specialty: no ?Care discussed with: admitting provider ?? Vanessa Nguyen MD PROCEDURE/MINOR SURGICAL ORDERABLES Final Result * Lipase (08/03/2023 6:00 PM AUTHOR'S AGENT) LIPASE 44 8 - 78 U/L 08/04/2023 6:43 AM AUTHOR'S AGENT [facility] Blood Venipuncture / Unknown 08/03/2023 6:00 PM AUTHOR'S AGENT 08/04/2023 6:28 AM AUTHOR'S AGENT Vanessa Nguyen MD CHEMISTRY ORDERABLES Sarah l Result [facility] [place] [address] * (ABNORMAL) Comprehensive Metabolic Panel (Cmp) [id number] (08/03/2023 6:00 PM AUTHOR'S AGENT) SODIUM 142 136 - 145 mmol/L 08/03/2023 7:28 PM AUTHOR'S AGENT [facility] POTASSIUM 3.4(L) 3.5 - 5.1 mmol/L 08/03/2023 7:28 PM AUTHOR'S AGENT [facility] CHLORIDE 107 98 - 107 mmol/L 08/03/2023 7:28 PM AUTHOR'S AGENT [facility] CO2, VENOUS 23 22 - 30 mmol/L 08/03/2023 7:28 PM [facility] ANION GAP 15.4 <18.0 mmol/L 08/03/2023 7:28 PM [facility] GLUCOSE 138(H) 70 - 99 mg/dL 08/03/2023 7:28 PM [facility] BUN 15 5 - 18 mg/dL 08/03/2023 7:28 PM [facility] CREATININE, BLOOD 0.74 0.60 - 1.00 mg/dL 08/03/2023 7:28 PM [facility] BUN/CREATININE RATIO 20 12 - 20 ratio 08/03/2023 7:28 PM [facility] TOTAL PROTEIN 7.3 6.3 - 8.2 g/dL 08/03/2023 7:28 PM [facility] ALBUMIN 4.5 3.5 - 5.0 g/dL 08/03/2023 7:28 PM [facility] A/G RATIO 1.6 1.0 - 2.2 08/03/2023 7:28 PM [facility] CALCIUM 9.7 8.7 - 10.5 mg/dL 08/03/2023 7:28 PM [facility] T BILI 0.6 0.2 - 1.2 mg/dL 08/03/2023 7:28 PM [facility] SGOT (AST) 25 5 - 34 U/L 08/03/2023 7:28 PM [facility] SGPT (ALT) 21 0 - 55 U/L 08/03/2023 7:28 PM [facility] ALKALINE PHOSPHATASE 118 40 - 150 U/L 08/03/2023 7:28 PM [facility] GFR, ESTIMATED >60 >=60 08/03/2023 7:28 PM [facility] Comment: Creatinine Clearance is the preferred criteria for selecting drug dose adjustments in renally impaired patients. ??The GFR is provided as additional pertinent clinical information. GFR is reported in mL/min/1.73 sq m. Calculation based on the Chronic Kidney Disease Epidemiology Collaboration (CKD- EPI) equation refit without adjustment for race. GFR, EST. >60 >=60 024 7:28 PM AUTHOR'S AGENT [facility] GFR, EST. NONAFRICAN >60 >=60 08/03/2023 7:28 PM AUTHOR'S AGENT [facility] Blood Venipuncture / Unknown 08/03/2023 6:00 PM AUTHOR'S AGENT 08/03/2023 7:06 PM AUTHOR'S AGENT us Richi Kent MD CHEMISTRY ORDERABLES Final Result [facility] [place] [address] documented in this encounter Visit Diagnoses Diagnosis Appendicitis, acute- Primary Acute appendicitis without mention of peritonitis Acute appendicitis Acute appendicitis without mention of peritonitis documented in this encounter Admitting Diagnoses Diagnosis Appendicitis, acute Acute appendicitis without mention of peritonitis documented in this encounter Administered Medications Inactive Administered Medications - up to 3 most recent administrations Medication Order MAR Action Action Date Dose Rate Site 0.9 % sodium chloride solution at 500 mL/hr, Intravenous, ONCE, 1 dose, On Sun08/03/23 at 1900 New Bag 08/03/2023 6:33 PM AUTHOR'S AGENT 1,000 mL 500 mL/hr 0.9 % sodium chloride with potassium chloride 20 mEq/L infusion at 100 mL/hr, Intravenous, CONTINUOUS, Starting on Sun08/03/23 at 2200, Until 08/05/23 at 0023 Rate Verify 08/04/2023 6:45 PM AUTHOR'S AGENT 100 mL/hr Rate Verify 08/04/2023 5:00 PM AUTHOR'S AGENT 100 mL/hr Rate Verify 08/04/2023 3:00 PM AUTHOR'S AGENT 100 mL/hr acetaminophen (TYLENOL) suppository 650 mg 650 mg, Rectal, EVERY 6 HOURS, First dose on Sun08/03/23 at 2200, Until Discontinued acetaminophen (TYLENOL) tablet 650 mg 650 mg, Oral, EVERY 6 HOURS, First dose on Sun08/03/23 at 2200, Until Discontinued Given 08/04/2023 4:41 PM AUTHOR'S AGENT 650 mg Given 08/04/2023 11:13 AM AUTHOR'S AGENT 650 mg Given 08/03/2023 9:40 PM AUTHOR'S AGENT 650 mg famotidine (PEPCID) tablet 20 mg 20 mg, Oral, 2 TIMES DAILY, First dose on Sun08/03/23 at 2200, Until Discontinued, 1. Use PO form unless unable to tolerate PO medications, then use Injection. 2. Provider to consider discontinuation when the risk factors for stress ulcer are no longer present or the patient is transferred from the ICU., Indications: Stress Ulcer ProphylaxisIndications:Stress Ulcer Prophylaxis Given 08/04/2023 8:07 PM AUTHOR'S AGENT 20 mg Given 08/04/2023 11:13 AM AUTHOR'S AGENT 20 mg famotidine (PF) (PEPCID) injection 20 mg 20 mg, Intravenous, 2 TIMES DAILY, First dose on Sun08/03/23 at 2200, Until Discontinued, 1. Use Injection only if patient unable to tolerate oral medications. 2. Provider to consider discontinuation when the risk factors for stress ulcer are no longer present or the patient is transferred from the ICU. Dilute with NS to total volume of 5-10 ml., Indications: Stress Ulcer ProphylaxisIndications:Stress Ulcer Prophylaxis Given 08/03/2023 9:41 PM AUTHOR'S AGENT 20 mg fentaNYL (PF) (SUBLIMAZE) injection 100 mcg 100 mcg, Intravenous, ONCE, 1 dose, On Sun08/03/23 at 2130 Given 08/03/2023 9:07 PM AUTHOR'S AGENT 100 mcg fentaNYL (PF) (SUBLIMAZE) injection 75 mcg 75 mcg, Intravenous, ONCE, 1 dose, On Sun08/03/23 at 1930 Given 08/03/2023 7:20 PM AUTHOR'S AGENT 75 mcg HEParin (porcine) injection 5,000 Units 5,000 Units, Subcutaneous, EVERY 8 HOURS SCHEDULED (3 times per day), First dose on Sun08/04/23 at 0600, Until Discontinued Given 08/04/2023 2:44 PM AUTHOR'S AGENT 5,000 Units Right Abdomen HYDROmorphone (DILAUDID) injection 0.5 mg 0.5 mg, Intravenous, EVERY 2 HOURS PRN, Starting on Sun08/03/23 at 2127, Until Sun08/04/23 at 1614, Severe pain, For Severe Pain, and pain unrelieved by Mild and Moderate Analgesic medications (if ordered). Given 08/04/2023 3:32 AM AUTHOR'S AGENT 0.5 mg Given 08/04/2023 12:09 AM AUTHOR'S AGENT 0.5 mg iopamidol (ISOVUE-370) 76 % injection 64 mL 64 mL, Intravenous, ONCE, 1 dose, On Sun08/03/23 at 1900 Given 08/03/2023 7:44 PM AUTHOR'S AGENT 64 mL ketorolac (TORADOL) injection 15 mg 15 mg, Intravenous, EVERY 6 HOURS PRN, Starting on Sun08/03/23 at 2127, Until 08/05/23 at 0023, For Moderate Pain, and pain unrelieved by Mild Analgesic medications (if ordered)., Moderate pain or more severe pain if patient requests Given 08/04/2023 8:53 AM AUTHOR'S AGENT 15 mg ondansetron (ZOFRAN) injection 4 mg 4 mg, Intravenous, ONCE, 1 dose, On Sun08/03/23 at 1900 Given 08/03/2023 6:39 PM AUTHOR'S AGENT 4 mg ondansetron (ZOFRAN) injection 4 mg 4 mg, Intravenous, EVERY 6 HOURS PRN, Starting on Sun08/03/23 at 2127, Until 08/05/23 at 0023, Nausea - 1st line, 1. First Line Antiemetic. 2. Use Injection only if patient unable to tolerate oral medications. Given 08/04/2023 3:34 AM AUTHOR'S AGENT 4 mg ondansetron (ZOFRAN-ODT) disintegrating tablet 4 mg 4 mg, Oral, EVERY 6 HOURS PRN, Starting on Sun08/03/23 at 2127, Until 08/05/23 at 0023, Nausea - 1st line, 1. First Line Antiemetic. 2. Use PO form unless unable to tolerate PO medications, then use Injection oxyCODONE (ROXICODONE) immediate release tablet 5 mg 5 mg, Oral, EVERY 4 HOURS PRN, Starting on 08/04/23 at 0903, Until 08/05/23 at 0023, Moderate pain or more severe pain if patient requests, If pain not effectively managed, then contact provider to discuss possibly 1) adding scheduled opioid dosing or non-opioid pain treatments, 2) increasing dosage, or 3) changing to QUALITY REVIEW SPECIALIST. phenylephrine 50 mg in 0.9 % sodium chloride 250 mL 10-200 mcg/min (3-60 mL/hr), Intravenous, CONTINUOUS, Starting on 08/04/23 at 1130, Until 08/05/23 at 0023, Titration parameters: GOAL: SBP >90 INITIATE AT: 50 mcg/min TITRATE BY: 10 mcg/min to maximum of ordered dose range INTERVAL: Every 15 minutes Call Provider if not at goal and at maximum of ordered dose range. Rate Change 08/04/2023 4:30 PM AUTHOR'S AGENT 10 mcg/min 3 mL/hr Rate Change 08/04/2023 3:45 PM AUTHOR'S AGENT 20 mcg/min 6 mL/hr Rate Change 08/04/2023 3:00 PM AUTHOR'S AGENT 30 mcg/min 9 mL/hr piperacillin-tazobactam (ZOSYN) 3.375 g in sodium chloride 0.9 % 100 mL IVPB 3.375 g, Intravenous, ONCE, 1 dose, On Sun08/03/23 at 2100, Administer over 30 Minutes, First dose should be bolus dose over 30 minutes, with second dose given 4 hours later (8 hours for q12 regimen) Lactated ringer? s solution is not compatible with piperacillin/tazobactam. Run LR and piperacillin/tazobactam in separate lines or contact provider to request an alternate maintenance fluid., Indications: Intra-Abdominal Infection, at 200 mL/hrIndications:Intra-Abdominal Infection New Bag 08/03/2023 8:41 PM AUTHOR'S AGENT 3.375 g 200 mL/hr piperacillin-tazobactam (ZOSYN) 4.5 g in sodium chloride 0.9 % 100 mL IVPB 4.5 g, Intravenous, EVERY 8 HOURS, First dose on Sun08/04/23 at 0100, Until Discontinued, Administer over 4 Hours, Lactated ringer? s solution is not compatible with piperacillin/tazobactam. Run LR and piperacillin/tazobactam in separate lines or contact provider to request an alternate maintenance fluid., Indications: Intra-Abdominal Infection, at 25 mL/hrIndications:Intra-Abdominal Infection New Bag 08/04/2023 4:42 PM AUTHOR'S AGENT 4.5 g 25 mL/hr New Bag 08/04/2023 12:10 AM AUTHOR'S AGENT 4.5 g 25 mL/hr potassium chloride (KLOR-CON) packet 20 mEq 20 mEq, Oral, 2 TIMES DAILY WITH MEALS, First dose on 08/04/23 at 1030, Until Discontinued, Dissolve each packet in at least 120 mL of cold water or other beverage prior to administration. If GI irritation occurs, increase dilution. Given 08/04/2023 4:41 PM AUTHOR'S AGENT 20 mEq Given 08/04/2023 11:13 AM AUTHOR'S AGENT 20 mEq documented in this encounter Active and Recently Administered Medications Times are shown in AUTHOR'S AGENT. Scheduled Medication Order 08/02/2023 08/03/2023 08/04/2023 0.9 % sodium chloride solution (COMPLETED) at 500 mL/hr, Intravenous, ONCE, 1 dose, On Sun08/03/23 at 1900 1833 (New Bag - Provider: Mary Delgado RN)2106 (Stopped - Provider: Chelsea Howard RN) acetaminophen (TYLENOL) suppository 650 mg(Linked Group 1) 650 mg, Rectal, EVERY 6 HOURS, First dose on Sun08/03/23 at 2200, Until Discontinued 2139 (See Alternative - Provider: Julianna Alicea RN) 0400 (See Alternative - Provider: Julianna Alicea RN)1113 (See Alternative - Provider: Ashanti Betancourt RN)164 (See Alternative - Provider: Ashanti Betancourt RN)220 (See Alternative - Provider: Yumiko Da Silva RN) acetaminophen (TYLENOL) tablet 650 mg(Linked Group 1) 650 mg, Oral, EVERY 6 HOURS, First dose on Sun08/03/23 at 2200, Until Discontinued 2139 (Given - Provider: Julianna Alicea RN) 0400 (Not Given - Provider: Julianna Alicea RN - Reason: Patient/family refused)1113 (Given - Provider: Ashanti Betancourt RN)164 (Given - Provider: Ashanti Betancourt RN)2200 (Not Given - Provider: Yumiko Da Silva RN - Reason: Patient not available - Comment: d/c home) famotidine (PEPCID) tablet 20 mg(Linked Group 2) 20 mg, Oral, 2 TIMES DAILY, First dose on Sun08/03/23 at 2200, Until Discontinued, 1. Use PO form unless unable to tolerate PO medications, then use Injection. 2. Provider to consider discontinuation when the risk factors for stress ulcer are no longer present or the patient is transferred from the ICU., Indications: Stress Ulcer Prophylaxis 2140 (See Alternative - Provider: Julianna Alicea RN) 1113 (Given - Provider: Ashanti Betancourt RN)2006 (Given - Provider: Yumiko Da Silva RN) famotidine (PF) (PEPCID) injection 20 mg(Linked Group 2) 20 mg, Intravenous, 2 TIMES DAILY, First dose on Sun08/03/23 at 2200, Until Discontinued, 1. Use Injection only if patient unable to tolerate oral medications. 2. Provider to consider discontinuation when the risk factors for stress ulcer are no longer present or the patient is transferred from the ICU. Dilute with NS to total volume of 5-10 ml., Indications: Stress Ulcer Prophylaxis 2140 (Given - Provider: Julianna Alicea RN) 1112 (See Alternative - Provider: Ashanti Betancourt RN)2006 (See Alternative - Provider: Yumiko Da Silva RN) fentaNYL (PF) (SUBLIMAZE) injection 100 mcg (COMPLETED) 100 mcg, Intravenous, ONCE, 1 dose, On Sun08/03/23 at 2130 2107 (Given - Provider: Chelsea Howard RN) fentaNYL (PF) (SUBLIMAZE) injection 75 mcg (COMPLETED) 75 mcg, Intravenous, ONCE, 1 dose, On Sun08/03/23 at 1930 1920 (Given - Provider: Chelsea Howard RN) HEParin (porcine) injection 5,000 Units 5,000 Units, Subcutaneous, EVERY 8 HOURS SCHEDULED (3 times per day), First dose on Sun08/04/23 at 0600, Until Discontinued 0600 (Not Given - Provider: Julianna Alicea RN - Reason: Contraindicated)1444 (Given - Provider: Ashanti Betancourt RN)2200 (Not Given - Provider: Yumiko Da Silva RN - Reason: Patient not available - Comment: d/c home) iopamidol (ISOVUE-370) 76 % injection 64 mL (COMPLETED) 64 mL, Intravenous, ONCE, 1 dose, On Sun08/03/23 at 1900 1944 (Given - Provider: Ashlyn Rainey, RT(R) (CT)) ondansetron (ZOFRAN) injection 4 mg (COMPLETED) 4 mg, Intravenous, ONCE, 1 dose, On Sun08/03/23 at 1900 1839 (Given - Provider: Mary Delgado, BALJIT) piperacillin-tazobactam (ZOSYN) 3.375 g in sodium chloride 0.9 % 100 mL IVPB (COMPLETED) 3.375 g, Intravenous, ONCE, 1 dose, On Sun08/03/23 at 2100, Administer over 30 Minutes, First dose should be bolus dose over 30 minutes, with second dose given 4 hours later (8 hours for q12 regimen) Lactated ringer? s solution is not compatible with piperacillin/tazobactam. Run LR and piperacillin/tazobactam in separate lines or contact provider to request an alternate maintenance fluid., Indications: Intra-Abdominal Infection, at 200 mL/hr 2040 (New Bag - Provider: Chelsea Howard RN)2109 (Infusing on Transfer - Provider: Chelsea Howard RN)2110 (Stopped - Provider: Julianna Alicea RN) piperacillin-tazobactam (ZOSYN) 4.5 g in sodium chloride 0.9 % 100 mL IVPB 4.5 g, Intravenous, EVERY 8 HOURS, First dose on Sun08/04/23 at 0100, Until Discontinued, Administer over 4 Hours, Lactated ringer? s solution is not compatible with piperacillin/tazobactam. Run LR and piperacillin/tazobactam in separate lines or contact provider to request an alternate maintenance fluid., Indications: Intra-Abdominal Infection, at 25 mL/hr 0010 (New Bag - Provider: Julianna Alicea RN)0410 (Stopped - Provider: Julianna Alicea RN)0900 (Canceled Entry - Provider: Mariaelena Padron RN - Comment: given in OR, charted by anesthesia)164 (New Bag - Provider: Ashanti Betancourt RN)195 (Stopped - Provider: Cathy Frias RN) potassium chloride (KLOR-CON) packet 20 mEq 20 mEq, Oral, 2 TIMES DAILY WITH MEALS, First dose on 08/04/23 at 1030, Until Discontinued, Dissolve each packet in at least 120 mL of cold water or other beverage prior to administration. If GI irritation occurs, increase dilution. 1113 (Given - Provid er: Ashanti Betancourt RN)1641 (Given - Provider: Ashanti Betancourt RN) Continuous Medication Order 08/02/2023 08/03/2023 08/04/2023 0.9 % sodium chloride with potassium chloride 20 mEq/L infusion at 100 mL/hr, Intravenous, CONTINUOUS, Starting on 08/03/23 at 2200, Until 08/05/23 at 0023 2140 (New Bag - Provider: Julianna Alicea RN) 1100 (Stopped - Provider: Ashanti Betancourt RN - Comment: not running upon transfer from PACU)1113 (New Bag - Provider: Ashanti Betancourt RN)1300 (Rate Verify - Provider: Ashanti Betancourt RN)1400 (Rate Verify - Provider: Ashanti Betancourt RN)1500 (Rate Verify - Provider: Ashanti Betancourt RN)1700 (Rate Verify - Provider: Ashanti Betancourt RN)1845 (Rate Verify - Provider: Ashanti Betancourt RN)1900 (Stopped - Provider: Cathy Frias RN) phenylephrine 50 mg in 0.9 % sodium chloride 250 mL 10-200 mcg/min (3-60 mL/hr), Intravenous, CONTINUOUS, Starting on 08/04/23 at 1130, Until 08/05/23 at 0023, Titration parameters: GOAL: SBP >90 INITIATE AT: 50 mcg/min TITRATE BY: 10 mcg/min to maximum of ordered dose range INTERVAL: Every 15 minutes Call Provider if not at goal and at maximum of ordered dose range. 1200 (New Bag - Provider: Ashanti Betancourt RN)1245 (Rate Change - Provider: Ashanti Betancourt RN)1300 (Rate Verify - Provider: Ashanti Betancourt RN)1345 (Rate Change - Provider: Ashanti Betancourt RN)1400 (Rate Verify - Provider: Ashanti Betancourt RN)1445 (Rate Change - Provider: Ashanti Betancourt RN)1500 (Rate Change - Provider: Ashanti Betancourt RN)1545 (Rate Change - Provider: Ashanti Betancourt RN)1630 (Rate Change - Provider: Ashanti Betancourt RN)1645 (Stopped - Provider: Ashanti Betancourt RN) PRN Medication Order 08/02/2023 08/03/2023 08/04/2023 bupivacaine (MARCAINE) 0.5 % injection (CANCELED) ONCE (in OR), Starting on 08/04/23 at 0852, Until 08/04/23 at 0908, INTRA-OP 0852 (Given - Provid er: Fidencio Zimmer MD) HYDROmorphone (DILAUDID) injection 0.5 mg (CANCELED) 0.5 mg, Intravenous, EVERY 2 HOURS PRN, Starting on 08/03/23 at 2127, Until 08/04/23 at 1614, Severe pain, For Severe Pain, and pain unrelieved by Mild and Moderate Analgesic medications (if ordered). 0009 (Given - Provid er: Julianna Alicea RN)033 (Given - Provider: Julianna Alicea RN) ketorolac (TORADOL) injection 15 mg 15 mg, Intravenous, EVERY 6 HOURS PRN, Starting on 08/03/23 at 2127, Until 08/05/23 at 0023, For Moderate Pain, and pain unrelieved by Mild Analgesic medications (if ordered)., Moderate pain or more severe pain if patient requests 0853 (Given - Provid er: Markus Campbell APRN, TK) ondansetron (ZOFRAN) injection 4 mg(Linked Group 3) 4 mg, Intravenous, EVERY 6 HOURS PRN, Starting on 08/03/23 at 2127, Until 08/05/23 at 0023, Nausea - 1st line, 1. First Line Antiemetic. 2. Use Injection only if patient unable to tolerate oral medications. 033 (Given - Provid er: Julianna Alicea RN) ondansetron (ZOFRAN-ODT) disintegrating tablet 4 mg(Linked Group 3) 4 mg, Oral, EVERY 6 HOURS PRN, Starting on 08/03/23 at 2127, Until 08/05/23 at 0023, Nausea - 1st line, 1. First Line Antiemetic. 2. Use PO form unless unable to tolerate PO medications, then use Injection 0334 (See Alternativ e - Provider: Julianna Alicea RN) oxyCODONE (ROXICODONE) immediate release tablet 5 mg 5 mg, Oral, EVERY 4 HOURS PRN, Starting on 08/04/23 at 0903, Until 08/05/23 at 0023, Moderate pain or more severe pain if patient requests, If pain not effectively managed, then contact provider to discuss possibly 1) adding scheduled opioid dosing or non-opioid pain treatments, 2) increasing dosage, or 3) changing to QUALITY REVIEW SPECIALIST. No Frequency Medication Order 08/02/2023 08/03/2023 08/04/2023 MIDAZOLAM HCL 2 MG/2ML IJ SOLN 1 dose, Starting on 08/04/23 at 0736, Created by cabinet override Linked Groups Order Group 1: acetaminophen (TYLENOL) tablet 650 mgJump to med 650 mg, Oral, EVERY 6 HOURS, First dose on Sun08/03/23 at 2200, Until Discontinued Or acetaminophen (TYLENOL) suppository 650 mgJump to med 650 mg, Rectal, EVERY 6 HOURS, First dose on Sun08/03/23 at 2200, Until Discontinued Group 2: famotidine (PEPCID) tablet 20 mgJump to med 20 mg, Oral, 2 TIMES DAILY, First dose on Sun08/03/23 at 2200, Until Discontinued, 1. Use PO form unless unable to tolerate PO medications, then use Injection. 2. Provider to consider discontinuation when the risk factors for stress ulcer are no longer present or the patient is transferred from the ICU., Indications: Stress Ulcer Prophylaxis Or famotidine (PF) (PEPCID) injection 20 mgJump to med 20 mg, Intravenous, 2 TIMES DAILY, First dose on Sun08/03/23 at 2200, Until Discontinued, 1. Use Injection only if patient unable to tolerate oral medications. 2. Provider to consider discontinuation when the risk factors for stress ulcer are no longer present or the patient is transferred from the ICU. Dilute with NS to total volume of 5-10 ml., Indications: Stress Ulcer Prophylaxis Group 3: ondansetron (ZOFRAN-ODT) disintegrating tablet 4 mgJump to med 4 mg, Oral, EVERY 6 HOURS PRN, Starting on Sun08/03/23 at 2127, Until 08/05/23 at 0023, Nausea - 1st line, 1. First Line Antiemetic. 2. Use PO form unless unable to tolerate PO medications, then use Injection Or ondansetron (ZOFRAN) injection 4 mgJump to med 4 mg, Intravenous, EVERY 6 HOURS PRN, Starting on 08/03/23 at 2127, Until 08/05/23 at 0023, Nausea - 1st line, 1. First Line Antiemetic. 2. Use Injection only if patient unable to tolerate oral medications. documented in this encounter Additional Health Concerns Assessment Noted Time PHQ-9 Depression Total Score: 2 04/18/20 23 1:16 PM CDT documented as of this encounter Care Teams Dials Supervisor Relationship Specialty Start Date End Date Siva Burgos MD [address] [place] [address] PCP - General Internal Medicine 02/26/20 Ananth Green DPM Podiatry 04/05/22 documented as of this encounter
--- OUTSIDE RECORDS SUMMARY | 2024-06-23 18:21 | XMS_ITS | Encounter Summary ---
Author Organization [facility] Address [address] [place] [address] Phone Care Team Providers Care Unit Control Clerk Name Role Phone Siva Burgos MD Primary Care Provider [phone] Ananth Green DPM Unavailable Unavailable Fidencio Zimmer MD Unavailable Reason for Visit * Reason Comments Surgical Follow-up Post op: appy Encounter Details Date Type Department Care Team (Late st Contact Info) Description 2023 3:15 PM IMPACT HAMMER OPERATOR Office Visit [facility] - General Surgery [facility] [address] [phone] Fidencio Zimmer MD [address] [phone] S/P laparoscopic appendectomy (Primary Dx) Discharge Disposition: Discharged to home or Selfcare Social History Tobacco Use Types Packs/Day Years Used Date Smoking Tobacco: Never Smokeless Tobacco: Never Alcohol Use Standard Drinks/Week Comments Not Currently 0 (1 standard drink = 0.6 oz pur e alcohol) Rare C Utilities Answer Date Recorded In the past [...] place to sleep or slept in a group home (including now)? No 08/03/2023 Education Answer Date [...] Sign Reading Time Taken Comments Blood Pressure 112/64 2023 3:01 PM IMPACT HAMMER OPERATOR Pulse 72 2023 3:01 PM IMPACT HAMMER OPERATOR Temperature 36.1 ??C (96.9 ??F) 2023 3:01 PM CS T Respiratory Rate - - Oxygen Saturation 98% 2023 3:01 PM IMPACT HAMMER OPERATOR Inhaled Oxygen Concentration - - Weight 59 kg (130 lb) 2023 3:01 PM IMPACT HAMMER OPERATOR Height 157.5 cm (5' 2 ) 2023 3:01 PM IMPACT HAMMER OPERATOR Body Mass Index 23.78 2023 3:01 PM IMPACT HAMMER OPERATOR documented in this encounter Progress Notes * Fidencio Zimmer MD - 2023 3:15 PM CST ASSESSMENT: S/p laparoscopic appendectomy for acute non perforated appendicitis on 08/03/2023 Large right ovarian cyst PLAN: Will see her OBGYN in September Diet as tolerated Activity as tolerated Come back and see me as needed SUBJECTIVE: Luciana Yost is a 47 y.o. female who is here in follow-up from the above procedure. Doing wellnow. Initially had some diarrhea but that resolved. Difficulty sleeping but last night was 1st night she actually slept well. Given her medical issues, I am not surprised. Surgery with her issues feels like jet lag and I am glad that she is getting better. With time she will get much better. Otherwise no other issues at this time. Tolerating diet. No nausea vomiting no fevers no chills. 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 Intraoperative pictures and findings were reviewed with her. Very large right ovarian cyst. She will mentioned it to her OBGYN in September. OBJECTIVE: BP 112/64 (BP Location: Left Arm, BP Position: Sitting, BP Cuff Size: Regular) Pulse 72 Temp 96.9 ??F (36.1 ??C) (Temporal) Ht 5' 2 (1.575 m) Wt 130 lb (59 kg) LMP 07/26/2021 SpO2 98% BMI 23.78 kg/m?? No intake/output data recorded. Gen: nad Inc: c/d/I Abd: s/nt/nd CT HAMMER OPERATOR documented in this encounter Plan of Treatment Not on file documented as of this encounter Visit Diagnoses Diagnosis S/P laparoscopic appendectomy- Primary Other postprocedural status documented in this encounter Additional Health Concerns Assessment Noted Time PHQ-9 Depression Total Score: 2 04/18/20 23 1:16 PM CDT documented as of this encounter Care Teams Unit Control Clerk Relationship Specialty Start Date End Date Siva Burgos MD [address] [place] [address] PCP - General Internal Medicine 02/26/20 Ananth Green DPM Podiatry 04/05/22 Fidencio Zimmer MD [address] [place] [address] Consulting Physician Colon and Rectal Surgery 08/08/23 documented as of this encounter
--- OUTSIDE RECORDS SUMMARY | 2024-06-23 18:21 | XMS_ITS | Encounter Summary ---
Author Organization [facility] Address [address] [place] [address] Phone Care Team Providers Care Cabin Cleaner Name Role Phone Siva Burgos MD Primary Care Provider [phone] Ananth Green DPM Unavailable Unavailable Fidencio Zimmer MD Unavailable Reason for Visit * Reason Comments Results Go over lab results from november Encounter Details Date Type Department Care Team (Late st Contact Info) Description 02/13/2024 11:45 AM CDT Office Visit [facility] - Internal Medicine - [place] [address] [place] [address] Siva Burgos MD [address] [place] [address] Abnormal blood chemistry test (Primary Dx); Raynaud's disease without gangrene Discharge Disposition: Discharged to home or Selfcare Social History Tobacco Use Types Packs/Day Years Used Date Smoking Tobacco: Never Smokeless Tobacco: Never Tobacco Cessation:Counseling Given: Not Answered Alcohol Use Standard Drinks/Week Comments Not Currently 0 (1 standard drink = 0.6 oz pur e alcohol) Rare [facility] Utilities Answer Date Recorded In the [...] declined 02/12/2024 How often do you attend jewish or anabaptism serv ices? Patient declined 02/12/2024 Do you belong to any clubs o r organizations such as jewish groups, unions, fraternal or athletic groups, or [...] Total Score - Questions 1-9 0 01/17 [facility] - Occupational Stress Questionnaire Answer [...] place to sleep or slept in a prison (including now)? No 08/03/2023 Housing Stability Vital Sign Answer Lio e Recorded In the last 12 months, was t here a time when you were not able to pay the mortgage or rent on time? Patient declined 02/12/20 Number of Times Moved in the Last Year Not on fi le 02/12/2024 At any time in the past 12 m [facility], were you homeless or living in a prison (including now)? No 02/12/2024 Education Answer Date [...] Mass Index 23.78 02/13/2024 11:28 AM CDT documented in this encounter Functional Status * Question Answer Date of Assessment Author Little interest or pleasure in doing things Not at all 02/13/2024 11:27 AM CDT TresSeptember Feeling down, depressed, or hopeless Not at all 01/17 11:27 AM CDT TresSeptember * Over the past 2 weeks, how often have you been bothered by any of the following problems? Question Answer Date of Assessment Author Patient Health Questionnaire-2 Score 0 01/17 11:27 AM CDT JoshuaSeptember documented as of this encounter Patient Instructions * Attachments The following attachments cannot be sent through Care Everywhere. * Fat and Cholesterol Restricted Eating Plan [id number] (Austrian) documented in this encounter Progress Notes * JoshuaSeptember - 02/13/2024 11:45 AM CDT Luciana Yost, 48 y.o., female is here for Results (Go over lab results from november) Medication Refills: Patient reports/denies need for medication refills. Orders Pended: no Requested Prescriptions No prescriptions requested or ordered in this encounter Home Medications Medication Sig Start Date End Date Taking? Authorizing Provider acetaminophen (TYLENOL) 325 MG Tablet Take 1 Tablet by mouth every 6 hours as needed for Fever (fortemperature greater than 100.4 F.). Do not exceed 4000 mg of acetaminophen in 24 hour from all sources. 08/04/23 Yes Fidencio Zimmer MD fluticasone (FLONASE) 50 MCG/ACT Suspension 2 spray in each nostril bid for 7 days then 1 spray in each nostril bid 04/26/23 Yes Siva Burgos MD hydroxychloroquine (PLAQUENIL) 200 MG Tablet Take 400 mg by mouth daily. Yes Jocelyne Ahn MD Magnesium 250 MG Tablet Take by mouth. Yes Jocelyne Ahn MD meloxicam (MOBIC) 15 MG Tablet Take 1 Tablet by mouth daily. 08/08/22 Yes Jocelyne Ahn MD There are no discontinued medications. I have reviewed the home medication list with the patient and have reconciled discrepancies. The list is accurate to the best of my knowledge. Smoking Status: Social History Tobacco Use Smoking status: Never Smokeless tobacco: Never Vaping Use Vaping status: Never Used Substance Use Topics Alcohol use: Not Currently Comment: Rare Drug use: Never Smoking Cessation Counseling Given: no Health Care Maintenance: Health Maintenance Due Topic Date Due Hepatitis C Virus (HCV) Screening Never done TdaP Immunization Never done Hepatitis B Immunization (1 of 3 - 19+ 3-dose series) Never done Cervical Cancer Screening (CCS) Never done SARS-COV-2 Immunization (3 - Pfizer risk series) 11/29/2020 Orders Pended: no The following BPA's have been addressed with the patient today: BMI, Depression, and Advanced Care Planning * Tres September - 02/13/2024 11:45 AM CDT Luciana screened for Social Determinants of Health and no needs identified. * Siva Burgos MD - 02/13/2024 11:45 AM CDT PROGRESS NOTE [facility] - INTERNAL MEDICINE [address] [place] [address] PHONE: [phone] FAX: [phone] 02/13/2024 NAME: Luciana Yost, : 1975, Assessment ASSESSMENT & PLAN: Return if symptoms worsen or fail to improve. Diagnoses and all orders for this visit: Abnormal blood chemistry test Comments: Patient recent labs in December 09 revealed elevated ALT. Will repeat CMP. 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 Follow-up depends upon test reports. Lab results from December 09 reviewed on patient's phone.-CMP was okay except mildly elevated ALT. B12 level, TFT-okay. LDL was 115. Chief Complaint Patient presents with Results Go over lab results from november Patient is here for follow-up for abnormal lab results. 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 Found to have elevated ALT. Her LDL was 115. Patient denies any alcohol abuse. Occasional social drinker. Currently takes hydroxychloroquine occasionally. Meloxicam daily for arthralgia. ROS Review of systems was negative, except as documented in HPI PHYSICAL EXAM VITALS: Wt Readings from Last 3 Encounters: 02/13/24 132 lb 1.6 oz (59.9 kg) 08/16/23 130 lb (59 kg) 08/03/23 137 lb 12.8 oz (62.5 kg) Temp Readings from Last 3 Encounters: 02/13/24 98 ??F (36.7 ??C) (Temporal) 08/16/23 96.9 ??F (36.1 ??C) (Temporal) 08/04/23 98.3 ??F (36.8 ??C) BP Readings from Last 3 Encounters: 02/13/24 92/68 08/16/23 112/64 08/04/23 90/60 Pulse Readings from Last 3 Encounters: 02/13/24 72 08/16/23 72 08/04/23 63 Physical Exam Vitals and nursing note reviewed. Constitutional: Appearance: Normal appearance. HENT: Head: Normocephalic. Eyes: Extraocular Movements: Extraocular movements intact. Conjunctiva/sclera: Conjunctivae normal. Pupils: Pupils are equal, round, and reactive to light. Cardiovascular: Rate and Rhythm: Normal rate and regular rhythm. Pulses: Normal pulses. Heart sounds: Normal heart sounds. Pulmonary: Effort: Pulmonary effort is normal. Breath sounds: Normal breath sounds. Abdominal: General: Abdomen is flat. Bowel sounds are normal. There is no distension. Palpations: Abdomen is soft. There is no mass. Tenderness: There is no abdominal tenderness. Musculoskeletal: General: Normal range of motion. Cervical back: Normal range of motion and neck supple. Skin: General: Skin is warm and dry. Neurological: General: No focal deficit present. Mental Status: She is alert and oriented to person, place, and time. Psychiatric: Mood and Affect: Mood normal. Behavior: Behavior normal. Past medical, surgical, social and family history has been reviewed and updated as necessary. Medications and allergies has been reviewed and updated. No Known Allergies Current Outpatient Medications: acetaminophen (TYLENOL) 325 MG Tablet fluticasone (FLONASE) 50 MCG/ACT Suspension hydroxychloroquine (PLAQUENIL) 200 MG Tablet Magnesium 250 MG Tablet meloxicam (MOBIC) 15 MG Tablet No current facility-administered medications for this visit. Facility-Administered Medications Ordered in Other Visits: MIDAZOLAM HCL 2 MG/2ML FRANCES RUIZ I educated Luciana regarding diagnoses and plan of care. She verbalizes understanding and will call the office if situation changes. Voice recognition software was utilized in this dictation. Despite proof reading, typographical errors and/or content errors may have occurred. By: Siva Burgos MD 02/13/2024 11:47 AM CDT documented in this encounter Plan of Treatment Not on file documented as of this encounter Results * CMP (COMPREHENSIVE METABOLIC PANEL) (02/13/2024) Blood 02/13/2024 Siva Burgos MD CHEMISTRY ORDERABLES Final Result documented in this encounter Visit Diagnoses Diagnosis Abnormal blood chemistry test- Primary Other abnormal blood chemistry Raynaud's disease without gangrene documented in this encounter Additional Health Concerns Assessment Noted Time PHQ-9 Depression Total Score: 0 02/13/20 11:27 AM CDT documented as of this encounter Care Teams Cabin Cleaner Relationship Specialty Start Date End Date Siva Burgos MD [address] [place] [address] PCP - General Internal Medicine 02/26/20 Ananth Green DPM Podiatry 04/05/22 Fidencio Zimmer MD [address] [address] Consulting Physician Colon and Rectal Surgery 08/08/23 documented as of this encounter
--- OUTSIDE RECORDS SUMMARY | 2024-06-23 18:21 | XMS_ITS | Encounter Summary ---
Author Organization [facility] Address [address] [place] [address] Phone Care Team Providers Care Bleach Tester Name Role Phone Siva Burgos MD Primary Care Provider Ananth Green DPM Unavailable Unavailable Reason for Referral * PT/OT/ST (Routine) - Closed Specialty Diagnoses / Procedures Referred By Travis elizabeth Referred To Contact Rehabilitation Diagnoses Achilles tendinitis of left lower extremity Calcaneal spur of foot, left Left foot pain Ananth Green DPM [facility] at [address], [address] [address] Phone: tel: fax: Referral ID Status Reason Start Date Expiration Date Visits Re quested Visits Authorized [id number] Closed 04/05/2022 1 1 Scheduling Instructions Luciana is being referred for left foot pain Please contact Luciana for scheduling questions or concerns. Reason for Visit * Reason Comments left ankle pain Encounter Details Date Type Department Care Team (Late st Contact Info) Description 04/05/2022 3:15 PM CDT Office Visit [facility] - Podiatry [facility] [place] [address] Peter, Ananth K, DPM Achilles tendinitis of left lower extremity (Primary Dx); Calcaneal spur of foot, left; Left foot pain Discharge Disposition: Discharged to home or [...] PM CDT documented as of this encounter Last Filed Vital Signs Vital Sign Reading Time Taken Comments Blood Pressure 104/68 04/05/2022 3:02 PM CDT Pulse 78 04/05/2022 3:02 PM CDT Temperature 36.4 ??C (97.5 ??F) 04/05/2022 3:02 PM CD T Respiratory Rate 16 04/05/2022 3:02 PM CDT Oxygen Saturation 98% 04/05/2022 3:02 PM CDT Inhaled Oxygen Concentration - - Weight 57.2 kg (126 lb) 04/05/2022 3:02 PM CDT Height 157.5 cm (5' 2 ) 04/05/2022 3:02 PM CDT Body Mass Index 23.05 04/05/2022 3:02 PM CDT documented in this encounter Progress Notes * Ananth Green, LISA - 04/05/2022 3:15 PM CDT [facility] [address] [facility], [address] [place] [address] 04/05/2022 Patient: Luciana Yost : 1975 Subjective: Patient presents to clinic for pain to her left heel. She states that the Achilles tendon is painful where touches the bottom of her foot. This has been going on for several months and seems to be getting gradually worse as time goes on making her unstable on her feet. She relates that she did havex-rays taken which showed no fractures. No Known Allergies Current Outpatient Medications: ??? amitriptyline (ELAVIL) 25 MG Tablet ??? meloxicam (MOBIC) 7.5 MG Tablet Past Medical History Positives Diagnosis Date ??? Screening mammogram, encounter for 08/17/2015 Past Surgical History: Procedure Laterality Date ??? CHOLECYSTECTOMY ROS: Other LIAM positive Objective: Physical Exam: Constitutional: The patient is awake, alert, well developed, well nourished and well groomed. Cardiovascular: There is no edema of the lower extremities. The pedal pulses are 2+ and symmetrical. Musculoskeletal: Lower extremity muscle strength and range of motion is equal and symmetrical bilaterally. The knees are noted to be in normal alignment. Ankle alignment and range of motion is normaland foot structure is normal. Subtalar, metatarsal and metatarsal-phalangeal joint range of motion is noted to be within normal limits. The digits of both feet are in normal alignment. The gain is antalgic on the left. There is pain on palpation of the left Achilles tendon insertion point. Dermatologic: Skin has normal texture and turgur. No open ulceration. Nails 1-10 in good repair. Neurologic: The deep tendon reflexes of the lower extremities are symmetrical and are graded at 2/4. Plantar reflexes (Babinski) reveals toes are downgoing and there is no ankle clonus. Sensory testing of the lower extremities for sharp.dull sensation, position, vibration and monofilament sensationis intact. There is no evidence of posterior tibial, superficial peroneal, or sural nerve pathology. There is no evidence of intermetatarsal neuroma bilaterally. X-rays three views left foot show no fractures or dislocations, very small area of retrocalcaneal spurring. Joint space maintained. Assessment and Plan Diagnoses and all orders for this visit: Achilles tendinitis of left lower extremity Calcaneal spur of foot, left Left foot pain Today we discussed treatment options as well as etiology. I prescribed physical therapy 2-3 times weekly for 6 weeks. I prescribed a night splint to be worn as directed. I prescribed Voltaren gel to be applied to the area of concern q.i.d. p.r.n. pain. Return to clinic 4 weeks. Ananth Green DPM documented in this encounter Plan of Treatment Scheduled Referrals Name Type Priority Associated Diagnoses Orde r Schedule PHYSICAL THERAPY REFERRAL Outpatient Referral Routine Achilles tendinitis of left lower extremity Calcaneal spur of foot, left Left foot pain Expected: 10/04/2022, Expires: 04/05/2023 documented as of this encounter Visit Diagnoses Diagnosis Achilles tendinitis of left lower extremity- Primary Achilles bursitis or tendinitis Calcaneal spur of foot, left Left foot pain Pain in limb documented in this encounter Additional Health Concerns Assessment Noted Time PHQ-9 Depression Total Score: 0 03/02/20 20 1:00 PM CDT documented as of this encounter Care Teams Bleach Tester Relationship Specialty Start Date End Date Siva Burgos MD [address] [place] [address] PCP - General Internal Medicine 02/26/20 Ananth Green DPM Podiatry 04/05/22 documented as of this encounter
--- OUTSIDE RECORDS SUMMARY | 2024-06-23 18:21 | XMS_ITS | Encounter Summary ---
Author Organization [facility] Care Team Providers Care Time Lock Expert Name Role Phone Siva Burgos MD Primary Care Provider Ananth Green DPM Unavailable Unavailable Fidencio Zimmer MD Unavailable Encounter Details Date Type Department Care Team (Latest Contact Info) Description 2023 Travel Social History Tobacco Use Types Packs/Day Years Used Date Smoking Tobacco: Never Smokeless Tobacco: Never Alcohol Use Standard Drinks/Week Comments Not Currently 0 (1 standard drink = 0.6 oz pur e alcohol) Rare [facility] Utilities Answer Date Recorded In the past 12 months has th e electric, gas, oil, or water [employer] threatened to shut off services in your [...] place to sleep or slept in a detention (including now)? No 08/03/2023 Education Answer Date [...] documented as of this encounter Care Teams Time Lock Expert Relationship Specialty Start Date End Date Siva Burgos MD [address] [place] [address] PCP - General Internal Medicine 02/26/20 Ananth Green DPM Podiatry 04/05/22 Fidencio Zimmer MD #[address] [address] Consulting Physician Colon and Rectal Surgery 08/08/23 documented as of this encounter
--- OUTSIDE RECORDS SUMMARY | 2024-06-23 18:21 | XMS_ITS | Encounter Summary ---
Author Organization [facility] Address [address] [place] [address] Phone Care Team Providers Care Management Supervisor Name Role Phone Siva Burgos MD Primary Care Provider [phone] Ananth Green DPM Unavailable Unavailable Reason for Visit * Reason Comments Ear Fullness Went to urgent care on 04/07/23 was diagnosed with a double ear infection, has finished antibiotics still has a lot of pressure in ears and difficulty hearing Encounter Details Date Type Department Care Team (Late st Contact Info) Description 04/18/2023 1:15 PM CDT Office Visit [facility] - Internal Medicine - [place] [address] [place] [id number] Sybil Dean, PAC [address] [place] [address] Otalgia of both ears (Primary Dx) Discharge Disposition: Discharged to home [...] Sign Reading Time Taken Comments Blood Pressure 102/62 04/18/2023 1:18 PM CDT Pulse 76 04/18/2023 1:18 PM CDT Temperature 37.3 ??C (99.2 ??F) 04/18/2023 1:18 PM CD T Respiratory Rate 12 04/18/2023 1:18 PM CDT Oxygen Saturation 98% 04/18/2023 1:18 PM CDT Inhaled Oxygen Concentration - - Weight 58.7 kg (129 lb 8 oz) 04/18/2023 1:18 PM CDT Height 160 cm (5' 3 ) 04/18/2023 1:18 PM CDT Body Mass Index 22.94 04/18/2023 1:18 PM CDT documented in this encounter Functional Status * Question Answer Date of Assessment Author Little interest or pleasure in doing things Not at all 04/18/2023 1:16 PM CDT Tres September Feeling down, depressed, or hopeless Not at all 06/2022 1:16 PM CDT Tres September * Over the past 2 weeks, how often have you been bothered by any of the following problems? Question Answer Date of Assessment Author Patient Health Questionnaire-2 Score 0 06/2022 1:16 PM CDT Kym Joshua documented as of this encounter Progress Notes * Tres September - 04/18/2023 1:15 PM CDT Luciana Yost, 47 y.o., female is here for Ear Fullness (Went to urgent care on 04/07/23 was diagnosed with a double ear infection, has finished antibiotics still has a lot of pressure in ears and difficulty hearing) Medication Refills: Patient reports/denies need for medication refills. Orders Pended: no Requested Prescriptions No prescriptions requested or ordered in this encounter Home Medications Medication Sig Start Date End Date Taking? Authorizing Provider amitriptyline (ELAVIL) 25 MG Tablet Take 1 Tablet by mouth nightly. Patient not taking: Reported on 01/02/2023 09/19/21 Siva Burgos MD hydroxychloroquine (PLAQUENIL) 200 MG Tablet Take 400 mg by mouth daily. Provider, MD Jocelyne Magnesium 250 MG Tablet Take by mouth. Provider, MD Jocelyne meloxicam (MOBIC) 7.5 MG Tablet Take 1 Tablet by mouth daily. 01/12/22 Yes Siva Burgos MD There are no discontinued medications. I have reviewed the home medication list with the patient and have reconciled discrepancies. The list is accurate to the best of my knowledge. Smoking Status: Social History Tobacco Use ??? Smoking status: Never ??? Smokeless tobacco: Never Vaping Use ??? Vaping Use: Never used Substance Use Topics ??? Alcohol use: Yes Comment: Rare ??? Drug use: Never Smoking Cessation Counseling Given: no Health Care Maintenance: Health Maintenance Due Topic Date Due ??? Hepatitis B Immunization (1 of 3 - 3-dose series) Never done ??? Hepatitis C Virus (HCV) Screening Never done ??? DTaP/Tdap/Td Immunization (1 - Tdap) Never done ??? Cervical Cancer Screening (CCS) Never done ??? Influenza Immunization (1) 02/16/2023 ??? SARS-COV-2 Immunization ( season) 2023 Orders Pended: no The following BPA's have been addressed with the patient today: BMI, Smoking and Depression * Sybil Dean PAC - 04/18/2023 1:15 PM CDT Chief Complaint: Chief Complaint Patient presents with ??? Ear Fullness Went to urgent care on 04/07/23 was diagnosed with a double ear infection, has finished antibioticsstill has a lot of pressure in ears and difficulty hearing Assessment/Plan: Diagnoses and all orders for this visit: Otalgia of both ears Other orders - Magnesium 250 MG Tablet; Take by mouth. - hydroxychloroquine (PLAQUENIL) 200 MG Tablet; Take 400 mg by mouth daily. - methylPREDNISolone (MEDROL DOSPACK) 4 MG Tablet Therapy Pack; Follow instructions on pack, take with food; Give one pack Currently no sign of any infection Will Rx MDP to try and help the built up fluid in the sinues If the ear pain and hearing do not improve into next week she is to let me know We may consider a second round of ABT and refer to ENT Subjective: Ms. Luciana Yost is a 47 y.o. female here today for above. Double ear infection 04/07 ABT just finished Better but does cont to have decreased hearing in both ears and clogged sensation and mild pain No other URI sx No fever No cough ROS: Review of Systems HENT: Positive for ear pain. VITAL SIGNS: BP Readings from Last 3 Encounters: 04/18/23 102/62 01/02/23 92/60 04/05/22 104/68 Wt Readings from Last 3 Encounters: 04/18/23 129 lb 8 oz (58.7 kg) 01/02/23 127 lb (57.6 kg) 04/05/22 126 lb (57.2 kg) Vitals: 04/18/23 1318 BP: 102/62 BP Location: Left Arm BP Position: Sitting BP Cuff Size: Regular Pulse: 76 Resp: 12 Temp: 99.2 ??F (37.3 ??C) TempSrc: Temporal SpO2: 98% Weight: 129 lb 8 oz (58.7 kg) Height: 5' 3 (1.6 m) Body mass index is 22.94 kg/m??. PHYSICAL EXAM: Physical Exam Vitals reviewed. HENT: Head: Normocephalic. Right Ear: Tympanic membrane normal. Left Ear: Tympanic membrane normal. Nose: Nose normal. Mouth/Throat: Mouth: Mucous membranes are moist. Pharynx: No oropharyngeal exudate or posterior oropharyngeal erythema. Eyes: Extraocular Movements: Extraocular movements intact. Cardiovascular: Rate and Rhythm: Regular rhythm. Heart sounds: Normal heart sounds. Pulmonary: Breath sounds: Normal breath sounds. Skin: General: Skin is warm. Neurological: Mental Status: She is alert. Mental status is at baseline. Psychiatric: Mood and Affect: Mood normal. Labs/Studies Reviewed: Lab Results Component Value Date WBC 6.25 01/02/2023 HEMOGLOBIN 13.5 01/02/2023 HEMATOCRIT 40.1 01/02/2023 PLATELETCNT 273 01/02/2023 MCV 91.8 01/02/2023 Lab Results Component Value Date SODIUM 139 01/02/2023 POTASSIUM 3.9 01/02/2023 CHLORIDE 101 01/02/2023 CO2VEN 27 01/02/2023 ANIONGAP 14.9 01/02/2023 GLUCOSE 89 01/02/2023 BUN 12 01/02/2023 CREATININE 0.74 01/02/2023 BCRATIO8 16 01/02/2023 TOTALPROTEIN 7.0 01/02/2023 ALBUMIN 4.3 01/02/2023 CALCIUM 9.8 01/02/2023 TBIL 0.3 01/02/2023 SGOTAST 22 01/02/2023 SGPTALT 17 01/02/2023 ALKALINEPHO 121 (H) 01/02/2023 GFRNA >60 01/02/2023 GFRA >60 01/02/2023 No results found for: TSH No results found for: HGBA1C Lab Results Component Value Date LDL 77 03/05/2020 No results found for: PSASCREEN, PSA, PSAFREE, PSAPCNTFREE, PSATOTAL @MAMMOFINDINGS@ No results found. Recent Procedure Details No resulted procedures found. FOLLOWUP: Follow-up Information Return in about 1 week (around 04/25/2023) for worsening symptoms or if symptoms fail to improve. LOS Today OFFICE/OP EST LVL 3 LOW MDM/20-29 MIN Past medical, surgical, social and family history has been reviewed and updated as necessary. Medications and allergies has been reviewed and updated. I discussed all new medications and potential side effects or risks associated with them. Patient is to contact our office with any concerns. Patient instructions and educational materials were given to the patient. Patient (or patient airport representative) demonstrates verbal understanding of instructions given. Patient should follow up with their PCP for general health maintenance needs. Patient should contact our office if their problems persist or call 911/go the to ER if issues become more persistent. If any referrals have been made, patient should contact our office with in 3-5 days if they have not heard anything from our referral team or the referring physician. documented in this encounter Plan of Treatment Not on file documented as of this encounter Visit Diagnoses Diagnosis Otalgia of both ears- Primary Otalgia, unspecified documented in this encounter Additional Health Concerns Assessment Noted Time PHQ-9 Depression Total Score: 2 04/18/20 23 1:16 PM CDT documented as of this encounter Care Teams Management Supervisor Relationship Specialty Start Date End Date Siva Burgos MD [address] [place] [address] PCP - General Internal Medicine 02/26/20 Ananth Green DPM Podiatry 04/05/22 documented as of this encounter
--- OUTSIDE RECORDS SUMMARY | 2024-06-23 18:21 | XMS_ITS | Encounter Summary ---
Author Organization [facility] Care Team Providers Care Bottle House Quality Control Technician Name Role Phone Siva Burgos MD Primary Care Provider [phone] Ananth Green DPM Unavailable Unavailable Encounter Details Date Type Department Care Team (Latest Contact Info) Description 05/08/2022 Travel Social History Tobacco Use Types Packs/Day [...] Coronavirus/COVID-19? No / Unsure 05/08/2022 12:23 PM SHOESHINER documented as of this encounter Plan of Treatment Not on file documented as of this encounter Visit Diagnoses Not on filedocumented in this encounter Additional Health Concerns Assessment Noted Time PHQ-9 Depression Total Score: 0 03/02/20 20 1:00 PM CDT documented as of this encounter Care Teams Bottle House Quality Control Technician Relationship Specialty Start Date End Date Siva Burgos MD [address] [place] [address] PCP - General Internal Medicine 02/26/20 Ananth Green DPM Podiatry 04/05/22 documented as of this encounter
--- OUTSIDE RECORDS SUMMARY | 2024-06-23 18:21 | XMS_ITS | Encounter Summary ---
Author Organization [facility] Address [address] [place] [address] Phone Care Team Providers Care Industrial Education Teacher Name Role Phone Siva Burgos MD Primary Care Provider [phone] Ananth Green DPM Unavailable Unavailable Reason for Visit * Reason Onset Date Comments Appointment 05/10/2022 Same day cancel. Encounter Details Date Type Department Care Team (Late st Contact Info) Description 05/10/2022 Telephone [facility] [address] [place] [address] Levar Mixon RN [place] Appointment [...] Coronavirus/COVID-19? No / Unsure 05/08/2022 12:23 PM PAPER PATTERN INSPECTOR documented as of this encounter Miscellaneous Notes * Telephone Encounter - Levar Mixon PTA - 05/10/2022 9:43 AM PAPER PATTERN INSPECTOR Patient called to cancel appointment. Per the front office, Luciana called to cancel todays apt due to her daughter tested postive for covid. LEVAR MIXON PTA R PATTERN INSPECTOR documented in this encounter Plan of Treatment Not on file documented as of this encounter Visit Diagnoses Not on filedocumented in this encounter Additional Health Concerns Assessment Noted Time PHQ-9 Depression Total Score: 0 03/02/20 20 1:00 PM CDT documented as of this encounter Care Teams Industrial Education Teacher Relationship Specialty Start Date End Date Siva Burgos MD [address] [place] [address] PCP - General Internal Medicine 02/26/20 Ananth Green DPM Podiatry 04/05/22 documented as of this encounter
--- OUTSIDE RECORDS SUMMARY | 2024-06-23 18:21 | XMS_ITS | Encounter Summary ---
Author Organization [facility] Address [address] [place] [address] Phone Care Team Providers Care Back Filler Operator Name Role Phone Siva Burgos MD Primary Care Provider Ananth Green DPM Unavailable Unavailable Reason for Visit * Reason Comments Post-Hospital Follow-up Low potassium Encounter Details Date Type Department Care Team (Late st Contact Info) Description 01/02/2023 1:30 PM CDT Office Visit [facility] - Primary Care - [place] [address] [place] [address] Sybil Dean, PAC [address] [place] [address] Low serum potassium (Primary Dx) Discharge Disposition: Discharged to home or Selfcare Social History Tobacco Use Types Packs/Day Years Used Date Smoking Tobacco: Never Smokeless Tobacco: Never Tobacco Cessation:Counseling Given: No Alcohol Use Standard Drinks/Week Comments Yes 0 [...] Sign Reading Time Taken Comments Blood Pressure 92/60 01/02/2023 1:50 PM CDT Pulse 80 01/02/2023 1:50 PM CDT Temperature 36.1 ??C (97 ??F) 01/02/2023 1:50 PM CDT Respiratory Rate 12 01/02/2023 1:50 PM CDT Oxygen Saturation 98% 01/02/2023 1:50 PM CDT Inhaled Oxygen Concentration - - Weight 57.6 kg (127 lb) 01/02/2023 1:50 PM CDT Height 158.8 cm (5' 2.5 ) 01/02/2023 1:50 PM CDT Body Mass Index 22.86 01/02/2023 1:50 PM CDT documented in this encounter Functional Status * Question Answer Date of Assessment Author Little interest or pleasure in doing things Not at all 01/02/2023 1:00 PM CDT Bella Childers RMA Feeling down, depressed, or hopeless Not at all 01/02/2023 1:00 PM CDT Bella Childers RMA * Over the past 2 weeks, how often have you been bothered by any of the following problems? Question Answer Date of Assessment Author Patient Health Questionnaire -2 Score 0 01/02/2023 1:00 PM CDT Bella Childers RMA documented as of this encounter Progress Notes * Belal Childers RMA - 01/02/2023 1:30 PM CDT Luciana Yost, 47 y.o., female is here for Post-Hospital Follow-up Medication Refills: Patient reports/denies need for medication refills. Orders Pended: no Requested Prescriptions No prescriptions requested or ordered in this encounter Home Medications Medication Sig Start Date End Date Taking? Authorizing Provider amitriptyline (ELAVIL) 25 MG Tablet Take 1 Tablet by mouth nightly. 09/19/21 Yes Siva Burgos MD meloxicam (MOBIC) 7.5 MG Tablet Take 1 [...] Cervical Cancer Screening (CCS) Never done ??? Colorectal Cancer Screening Never done ??? SARS-COV-2 Immunization (3 - Pfizer series) 12/27/2020 Orders Pended: no The following BPA's have been addressed with the patient today: BMI * Sybil Dean, NANCY - 01/02/2023 1:30 PM CDT Chief Complaint: Chief Complaint Patient presents with ??? Post-Hospital Follow-up Low potassium Assessment/Plan: Diagnoses and all orders for this visit: Low serum potassium - CMP (COMPREHENSIVE METABOLIC PANEL); Future - COMPLETE BLOOD COUNT (CBC) WITH DIFF; Future Labs today Recheck K Get colonoscopy as planned F/u with PCP regarding chronic intermittent diarrhea after colon CA screen done May need to see GI Add K to diet daily; d/w pt Subjective: Ms. Luciana Yost is a 47 y.o. female here today for above. ER f/u Sunday was at [employer] contracted and she got really sick Went to ER Potassium very low Dx with dehydration She denies Says she drinks a lot of water Does admit to manager terminal chronic intermittent diarrhea Her MACHINE HEEL BUILDER was aware and she is having a colonoscopy soon Not on meds No other medical issues Does have abnormal LIAM and is seeing rheum for work up Unsure of food trigger No diarrhea today No abd pain No N, V Weight stable appetite stable ROS: Review of Systems Gastrointestinal: Positive for diarrhea. VITAL SIGNS: BP Readings from Last 3 Encounters: 01/02/23 92/60 04/05/22 104/68 01/12/22 102/64 Wt Readings from Last 3 Encounters: 01/02/23 127 lb (57.6 kg) 04/05/22 126 lb (57.2 kg) 01/12/22 125 lb (56.7 kg) Vitals: 01/02/23 1350 BP: 92/60 BP Location: Right Arm BP Position: Sitting BP Cuff Size: Regular Pulse: 80 Resp: 12 Temp: 97 ??F (36.1 ??C) TempSrc: Temporal SpO2: 98% Weight: 127 lb (57.6 kg) Height: 5' 2.5 (1.588 m) Body mass index is 22.86 kg/m??. PHYSICAL EXAM: Physical Exam Vitals reviewed. Constitutional: Appearance: Normal appearance. HENT: Head: Normocephalic and atraumatic. Cardiovascular: Rate and Rhythm: Regular rhythm. Heart sounds: Normal heart sounds. Pulmonary: Effort: Pulmonary effort is normal. Breath sounds: Normal breath sounds. Abdominal: General: Bowel sounds are normal. Palpations: Abdomen is soft. Musculoskeletal: General: Normal range of motion. Skin: General: Skin is warm. Neurological: General: No focal deficit present. Mental Status: She is alert. Deep Tendon Reflexes: Reflexes normal. Psychiatric: Mood and Affect: Mood normal. Labs/Studies [...] Information Return in about 1 week (around 01/09/2023) for worsening symptoms or if symptoms fail [...] given to the patient. Patient (or patient telephone services sales representative) demonstrates verbal understanding of instructions given. [...] documented as of this encounter Results * (ABNORMAL) CMP (COMPREHENSIVE METABOLIC PANEL) (01/02/2023 2:05 PM CDT) SODIUM 139 136 - 144 mmol/L 01/02/2023 3:38 PM CDT [facility] POTASSIUM 3.9 3.5 - 5.1 mmol/L 01/02/2023 3:38 PM CDT [facility] CHLORIDE 101 100 - 110 mmol/L 01/02/2023 3:38 PM CDT [facility] CO2, VENOUS 27 22 - 32 mmol/L 01/02/2023 3:38 PM [facility] ANION GAP 14.9 8.0 - 20.0 mmol/L 01/02/2023 3:38 PM T [facility] GLUCOSE 89 70 - 99 mg/dL 01/02/2023 3:38 PM T [facility] BUN 12 6 - 20 mg/dL 01/02/2023 3:38 PM [facility] CREATININE, BLOOD 0.74 0.60 - 1.10 mg/dL 01/02/2023 3:38 PM [facility] BUN/CREATININE RATIO 16 12 - 20 ratio 01/02/2023 3:38 PM [facility] TOTAL PROTEIN 7.0 6.0 - 8.3 g/dL 01/02/2023 3:38 PM [facility] ALBUMIN 4.3 3.5 - 5.0 g/dL 01/02/2023 3:38 PM [facility] Comment: The colormetric methods used for the determination of Albumin may lead to falsely elevated test results in patients suffering from renal failure or insufficiency due to interference with other proteins. A/G RATIO 1.6 1.0 - 2.0 01/02/2023 3:38 PM [facility] CALCIUM 9.8 8.7 - 10.5 mg/dL 01/02/2023 3:38 PM [facility] T BILI 0.3 0.2 - 1.2 mg/dL 01/02/2023 3:38 PM T [facility] SGOT (AST) 22 <=32 U/L 01/02/2023 3:38 PM [facility] SGPT (ALT) 17 <=41 U/L 01/02/2023 3:38 PM [facility] ALKALINE PHOSPHATASE 121(H) 35 - 105 U/L 01/02/2023 3:38 PM T [facility] IS THE PATIENT REQUIRED TO BE FASTING? No 01/02/2023 3:38 PM CDT [facility] GFR, ESTIMATED >60 >=60 01/02/2023 3:38 PM CDT [facility] Comment: Creatinine Clearance is the preferred criteria for selecting drug dose adjustments in renally impaired patients. ??The GFR is provided as additional pertinent clinical information. GFR is reported in mL/min/1.73 sq m. Calculation based on the Chronic Kidney Disease Epidemiology Collaboration (CKD- EPI) equation refit without adjustment for race. GFR, EST. >60 >=60 023 3:38 PM CDT [facility] GFR, EST. NONAFRICAN >60 >=60 01/02/2023 3:38 PM CDT [facility] Blood Venipuncture / Unknown 01/02/2023 2:05 PM CDT 01/02/2023 2:05 PM CDT Sybil Dean PAC CHEMISTRY ORDERAB LES Final Result [facility] [address] [place] [address] documented in this encounter Visit Diagnoses Diagnosis Low serum potassium- Primary documented in this encounter Additional Health Concerns Assessment Noted Time PHQ-9 Depression Total Score: 0 01/03/20 23 1:00 PM CDT documented as of this encounter Care Teams Back Filler Operator Relationship Specialty Start Date End Date Siva Burgos MD [address] [place] [address] PCP - General Internal Medicine 02/26/20 Ananth Green DPM Podiatry 04/05/22 documented as of this encounter
--- OUTSIDE RECORDS SUMMARY | 2024-06-23 18:21 | XMS_ITS | Encounter Summary ---
Author Organization [facility] Address [address] [place] [address] Phone Care Team Providers Care Teacher Aide Name Role Phone Siva Burgos MD Primary Care Provider Ananth Green DPM Unavailable Unavailable Encounter Details Date Type Department Care Team (Latest Contact Info) Description 05/29/2022 2:15 PM HOUSE FURNISHINGS SUPERVISOR Physical Therapy [facility] [address], [address] [place] [address] Ananth Green, Levar Garsia RN [place] Achilles tendinitis of left lower extremity (Primary Dx); Calcaneal spur of foot, left; Left foot pain; Decreased range of motion of left ankle Discharge Disposition: Discharged to home or Selfcare [...] Coronavirus/COVID-19? No / Unsure 05/28/2022 2:58 PM HOUSE FURNISHINGS SUPERVISOR documented as of this encounter Miscellaneous Notes * Plan of Care - Levar Mixon, CASUALTY CLAIMS SUPERVISOR - 05/29/2022 2:15 PM CST Treatment Note - Electronically signed by: LEVAR MIXON PTA May 29, 2022 SUBJECTIVE: Ms. Yost reports her knee has been bothering her a little more today. She says she has noticed some grinding when going up/down the steps. There have not been any medication changes. Objective TREATMENT: Refer to PT OP Rehab Therapy Treatment flowsheet for details/minutes. Strapping: A strip was applied from the plantar surface of patient's heel splitting into two smaller strips at musculotendinous junction and traveling to lateral and medial heads of the gastroc. A decompression strip was also applied around patient's posterior ankle across her achilles tendon. Manual Therapy: Patient received instrument-assisted soft tissue mobilization utilizing RockBlade to left gastroc muscle and tendon, heel, and plantar foot with patient in prone lying position. - muscle restrictions noted and released Education: Patient was educated on new exercises and demonstrated understanding. She was educated on no-sting barrier film applied to her leg prior to taping to help the tape stick after manual techniques with the cocoa butter. [employer] information: Access Code: [email or web address] ASSESSMENT: Other Details: Patient demonstrates gradual progress as evidenced by reporting a decrease in pain following session. Patient has good understanding of activities performed. Patient reported feeling better at the end of session. Muscle restrictions noted and released with manual therapy techniques. Plan to progress patient as appropriate. Patient would benefit from continued skilled interventions, [...] impairments in order to optimize rehabilitation. -Ongoing, 05/24/2022, SERGIO - Report that she is working out at least 3 times per week to be able to get back to her normal daily workout schedule with greater ease. Planned Interventions This patient will likely be seen for the following interventions: - Manual techniques including joint mobilizations, MFR, soft tissue massage, IASTM and others as needed for pain relief, soft tissue extensibility and joint mobility (36162) - Therapeutic exercise program for: motion/mobility, strengthening, flexibility, and functional limitations (89311) - Therapeutic activities for functional activity education/training and in home safety recommendations as appropriate (26971) - Neuro Muscular Re-education for body mechanics education and postural re- education as appropriate(33468) - Patient education regarding posture, ergonomics, body mechanics, HEP progression and exercise performance - Individualized home exercise program - Modalities as needed for pain relief, anti-inflammatory effect and soft tissue extensibility - Gait training (37472) - Trigger point dry needling for pain relief and reducing tension in associated musculature (40199 or 38895) Precautions: none Treatment may be altered based on patient progression and symptoms. The plan of care, as well as the benefits and risks of therapy were reviewed with the patient and the patient consented to treatment. E FURNISHINGS SUPERVISOR documented in this encounter Plan of Treatment Not on file documented as of this encounter Visit Diagnoses Diagnosis Achilles tendinitis of left lower extremity- Primary Achilles bursitis or tendinitis Calcaneal spur of foot, left Left foot pain Pain in limb Decreased range of motion of left ankle documented in this encounter Additional Health Concerns Assessment Noted Time PHQ-9 Depression Total Score: 0 03/02/20 20 1:00 PM CDT documented as of this encounter Care Teams Teacher Aide Relationship Specialty Start Date End Date Siva Burgos MD [address] [place] [address] PCP - General Internal Medicine 02/26/20 Ananth Green DPM Podiatry 04/05/22 documented as of this encounter
--- OUTSIDE RECORDS SUMMARY | 2024-06-23 18:21 | XMS_ITS | Encounter Summary ---
Author Organization [facility] Address [address] [place] [address] Phone Care Team Providers Care Press Box Custodian Name Role Phone Siva Burgos MD Primary Care Provider [phone] Ananth Green DPMichelle Unavailable Unavailable Reason for Visit * Reason Onset Date Comments Medication Refill 04/26/2023 Encounter Details Date Type Department Care Team (Late st Contact Info) Description 04/26/2023 Telephone [facility] - Internal Medicine - [place] [address] [place] [address] Siva Burgos MD [address] [place] [address] Medication Refill Social History Tobacco Use Types Packs/Day Years [...] encounter Miscellaneous Notes * Telephone Encounter - Joan Melendez - 04/26/2023 10:05 AM CST Med rf from pharmacy Medication - Fluticasone Pharmacy - Janeen Rodriguez D TRAINING AGENT documented in this encounter Plan of Treatment Not on file documented as of this encounter Visit Diagnoses Not on filedocumented in this encounter Additional Health Concerns Assessment Noted Time PHQ-9 Depression Total Score: 2 04/18/20 23 1:16 PM CDT documented as of this encounter Care Teams Press Box Custodian Relationship Specialty Start Date End Date Siva Burgos MD [address] [place] [address] PCP - General Internal Medicine 02/26/20 Ananth Green DPM Podiatry 04/05/22 documented as of this encounter
--- OUTSIDE RECORDS SUMMARY | 2024-06-23 18:21 | XMS_ITS | Encounter Summary ---
Author Organization [facility] Care Team Providers Care Manager Front Office Name Role Phone Siva Burgos MD Primary Care Provider Ananth Green DPM Unavailable Unavailable Fidencio Zimmer MD Unavailable Encounter Details Date Type Department Care Team (Latest Contact Info) Description 02/12/2024 Travel Social History Tobacco Use Types Packs/Day Years Used Date Smoking Tobacco: Never Smokeless Tobacco: Never Alcohol Use Standard Drinks/Week Comments Not Currently 0 (1 standard drink = 0.6 oz pur e alcohol) Rare [facility] Utilities Answer Date Recorded In the past 12 months has [employer] electric, gas, oil, or water [employer] threatened to shut off services in your home? Patient declined 02/12/2024 Social Connection and Isolation Panel [NHANES] A nswer Date Recorded In a typical week, how many times do you talk on the phone with family, friends, or neighbors? Patient declined 02/12/2024 How often do you get togethe r with friends or relatives? Patient declined 02/12/2024 How often do you attend confucianism or baptism serv ices? Patient declined 02/12/2024 Do you belong to any clubs o r organizations such as confucianism groups, unions, fraternal or athletic groups, or [...] Total Score - Questions 1-9 0 01/17 [facility] - Occupational Stress Questionnaire Answer Date Recorded [...] place to sleep or slept in a custodial (including now)? No 08/03/2023 Housing Stability Vital Sign Answer Lio e Recorded In the last 12 months, was t here a time when you were not able to pay the mortgage or rent on time? Patient declined 02/12/20 Number of Times Moved in the Last Year Not on fi le 02/12/2024 At any time in the past 12 m [facility], were you homeless or living in a custodial (including now)? No 02/12/2024 Education Answer Date [...] as of this encounter Functional Status * Audit-C Score Answer Date of Assessment Author -1 02/12/2024 1:27 PM CDT Mychart, System Background * Within the last year, have you been humiliated or emotionally abused in other ways by your partner or ex-partner? Answer Date of Assessment Author Patient declined 02/12/2024 1:27 PM CDT Mychart, System Background * Within the last year, have you been afraid of your partner or ex-partner? Answer Date of Assessment Author Patient declined 02/12/2024 1:27 PM CDT Mychart, System Background * Within the last year, have you been raped or forced to have any kind of sexual activity by your partner or ex-partner? Answer Date of Assessment Author Patient declined 02/12/2024 1:27 PM CDT Mychart, System Background * Within the last year, have you been kicked, hit, slapped, or otherwise physically hurt by your partner or ex-partner? Answer Date of Assessment Author Patient declined 02/12/2024 1:27 PM CDT Mychart, System Background * Q1: How often do you have a drink containing alcohol? Answer Date of Assessment Author Patient declined 02/12/2024 1:27 PM CDT Mychart, System Background * Q2: How many drinks containing alcohol do you have on a typical day when you are drinking? Answer Date of Assessment Author Patient declined 02/12/2024 1:27 PM CDT [employer] Background * Q3: How often do you have six or more drinks on one occasion? Answer Date of Assessment Author Patient declined 02/12/2024 1:27 PM CDT [employer] [facility] Background documented as of this encounter Plan of Treatment Not on file documented as of this encounter Visit Diagnoses Not on filedocumented in this encounter Additional Health Concerns Assessment Noted Time PHQ-9 Depression Total Score: 2 04/18/20 23 1:16 PM CDT documented as of this encounter Care Teams Manager Front Office Relationship Specialty Start Date End Date Siva Burgos MD [address] [place] [address] PCP - General Internal Medicine 02/26/20 Ananth Green DPM Podiatry 04/05/22 Fidencio Zimmer MD [address] [address] Consulting Physician Colon and Rectal Surgery 08/08/23 documented as of this encounter
--- OUTSIDE RECORDS SUMMARY | 2024-06-23 18:21 | XMS_ITS | Encounter Summary ---
Author Organization [facility] Address [address] [place] [address] Phone Care Team Providers Care Newspaper Manager Name Role Phone Siva Burgos MD Primary Care Provider [phone] Ananth Green DPM Unavailable Unavailable Encounter Details Date Type Department Care Team (Late st Contact Info) Description 04/25/2023 Telephone [facility] - Internal Medicine - [place] [address] [place] [address] Siva Burgos MD [address] [facility] [place] [address] Social History Tobacco Use Types [...] Recorded In the last 10 days, have joan finch been in contact with someone who was confirmed or suspected to have Coronavirus/COVID-19? No / Unsure 04/18/2023 1:05 PM CDT documented as of this encounter Miscellaneous Notes * Telephone Encounter - Siva Burgos MD - 04/26/2023 8:37 AM AIR CONDITIONER INSTALLER HELPER Will try fluticasone nasal spray for 1 week. If no improvement she will need to see an ENT specialist. Rx for fluticasone sent CONDITIONER INSTALLER HELPER * Telephone Encounter - Joan Melednez - 04/25/2023 3:27 PM CST Med ? Luciana saw Sybil recently and was given Antibiotics and a steroid pack. She says her ears are still clogged and wants to know what Sybil suggests she do from here. Phone - [phone] Pharmacy - Janeen Rodriguez CONDITIONER INSTALLER HELPER documented in this encounter Plan of Treatment Not on file documented as of this encounter Visit Diagnoses Not on filedocumented in this encounter Additional Health Concerns Assessment Noted Time PHQ-9 Depression Total Score: 2 04/18/20 23 1:16 PM CDT documented as of this encounter Care Teams Newspaper Manager Relationship Specialty Start Date End Date Siva Burgos MD [address] [place] [address] PCP - General Internal Medicine 02/26/20 Ananth Green DPM Podiatry 04/05/22 documented as of this encounter
--- OUTSIDE RECORDS SUMMARY | 2024-06-23 18:21 | XMS_ITS | Encounter Summary ---
Author Organization [facility] Address [address] [place] [address] Phone Care Team Providers Care Clean Room Technician Name Role Phone Siva Burgos MD Primary Care Provider Reason for Referral * Radiology Services (Routine) - Closed Specialty Diagnoses / Procedures Referred By Contelijah elizabeth Referred To Contact Radiology Diagnoses Acute right ankle pain Procedures XR ANKLE 3 OR MORE VIEWS LEFT Ananth Green DPM Referral ID Status Reason Start Date Expiration Date Visits Re quested Visits Authorized [id number] Closed 01/18/2022 1 1 Reason for Visit * Radiology Services (Routine) - Closed Specialty Diagnoses / Procedures Referred By Travis elizabeth Referred To Contact Radiology Diagnoses Acute right ankle pain Procedures XR ANKLE 3 OR MORE VIEWS LEFT Ananth Green DPM Referral ID Status Reason Start Date Expiration Date Visits Re quested Visits Authorized [id number] Closed 01/18/2022 1 1 Encounter Details Date Type Department Care Team (Latest Contact Info) Description 01/20/2022 9:07 AM CDT - 01/20/2022 11:59 PM CDT [facility] [address] [place] [address] Ananth Green DPM Discharge Disposition: Discharged to home or Selfcare [...] PM CDT documented as of this encounter Medications at Time of Discharge amitriptyline (ELAVIL) 25 MG Tablet Take 1 Tablet by mouth nightly. 30 Tablet 2 09/19/2021 08/03/2023 meloxicam (MOBIC) 7.5 MG Tablet Take 1 Tablet by mouth daily. 30 Tablet 01/12/2022 08/03/2023 documented as of this encounter Plan of Treatment Not on file documented as of this encounter Procedures Procedure Name Priority Date/Time Associated Diagnosis Comments XR ANKLE 3 OR MORE VIEWS LEFT Routine 01/20/2022 9:18 AM CDT Acute right ankle pain documented in this encounter Results * XR ANKLE 3 [...] PM T: ??01/22/2022 11:01 PM Report ID: [id number] Reading Location: ??[id number] Procedure Note Ron Pretty MD - 01/22/2022 [...] Ron Pretty M.D. MF: GOSIA Report ID: [id number] Reading Location: [id number] IMPRESSION: Small left ankle effusion. Ananth Green DPMichelle IMG DIAGNOSTIC ORDERABLES Fi nal Result documented in this encounter Visit Diagnoses Diagnosis Acute right ankle pain documented in this encounter Additional Health Concerns Assessment Noted Time PHQ-9 Depression Total Score: 0 03/02/20 20 1:00 PM CDT documented as of this encounter Care Teams Clean Room Technician Relationship Specialty Start Date End Date Siva Burgos MD [address] [place] [address] PCP - General Internal Medicine 02/26/20 documented as of this encounter
--- OUTSIDE RECORDS SUMMARY | 2024-06-23 18:21 | XMS_ITS | Encounter Summary ---
Author Organization [facility] Care Team Providers Care Steam Generating Powerplant Mechanic Name Role Phone Siva Burgos MD Primary Care Provider [phone] Ananth Green DPM Unavailable Unavailable Encounter Details Date Type Department Care Team (Latest Contact Info) Description 08/03/2023 Travel Social History Tobacco Use Types Packs/Day [...] as of this encounter Functional Status * Within the last year, have you been humiliated or emotionally abused in other ways by your partner or ex-partner? Answer Date of Assessment Author No 08/03/2023 9:32 PM Bryan Smith RN * Within the last year, have you been afraid of your partner or ex-partner? Answer Date of Assessment Author No 08/03/2023 9:32 PM Bryan Smith RN * Within the last year, have you been raped or forced to have any kind of sexual activity by your partner or ex-partner? Answer Date of Assessment Author No 08/03/2023 9:32 PM Bryan Smith RN * Within the last year, have you been kicked, hit, slapped, or otherwise physically hurt by your partner or ex-partner? Answer Date of Assessment Author No 08/03/2023 9:32 PM Bryan Smith RN documented as of this encounter Plan of Treatment Not on file documented as of this encounter Visit Diagnoses Not on filedocumented in this encounter Additional Health Concerns Assessment Noted Time PHQ-9 Depression Total Score: 2 04/18/20 23 1:16 PM CDT documented as of this encounter Care Teams Steam Generating Powerplant Mechanic Relationship Specialty Start Date End Date Siva Burgos MD [address] [place] [address] PCP - General Internal Medicine 02/26/20 Ananth Green DPM Podiatry 04/05/22 documented as of this encounter
--- OUTSIDE RECORDS SUMMARY | 2024-06-23 18:21 | XMS_ITS | Encounter Summary ---
Author Organization [facility] Address [address] [place] [address] Phone Care Team Providers Care Experimental Outboard Motors Mechanic Name Role Phone Siva Burgos MD Primary Care Provider [phone] Ananth Green DPMichelle Unavailable Unavailable Fidencio Zimmer MD Unavailable Reason for Visit * Reason Onset Date Comments Prior Authorization 11/29/2023 Denial from [employer] for MRI Brain wo Contrast 15170. Peer to peer is being offered. Encounter Details Date Type Department Care Team (Late st Contact Info) Description 11/29/2023 Telephone [facility] Outpatient [address] [place] [address] Siva Burgos MD [address] [place] [address] Prior Authorization (Denial from [employer] for MRI Brain wo Contrast 19249. Peer to peer is being offered.) Social History Tobacco Use Types Packs/Day Years Used Date Smoking Tobacco: Never Smokeless Tobacco: Never Alcohol Use Standard Drinks/Week Comments Not Currently 0 (1 standard drink = 0.6 oz pur e alcohol) Rare [facility] Utilities Answer Date Recorded In the [...] place to sleep or slept in a skilled nursing (including now)? No 08/03/2023 Education Answer Date [...] Telephone Encounter - Siva Burgos MD - 11/29/2023 10:30 AM CDT Please let patient know that insurance denied MRI of brain. We can refer to neurologist if she still has dizziness. * Telephone Encounter - Eunice Crawford - 11/29/2023 10:25 AM CDT Auth Denied-P2P offered Ordering Provider: Internal Appointment Info: Clinic: [facility] Provider: [id number] Appt Date/Time: Sunday 8:00 AM Payor + Plan: MEDICAID [facility] [employer] CPT/Test: 45417 MRI BRAIN WO CONTRAST Authorization denied through: [employer] Phone number called: [phone] Reference number / human resources hr representative's name and time of call: [phone] YASMIN 10:00 SAILBOAT CAPTAIN Reason for denial: Your doctor???s request for a(n) Brain MRI (with or without Internal Auditory Canal views) (Magnetic Resonance Imaging - pictures of inside your brain) has been denied. [employer] Clinical Guideline 001 for Brain (head) MRI was used to make this decision. This decision was based on the notes that were sent: you are dizzy. Before we can approve, we need the following notes: doctor's notes that say that you have other problems with your dizziness (such as vision changes, one sided hearing loss, trouble walking, weaknessor changes in sensation). We need to know if you have problems that puts you at high risk for having a blocked blood vessel in your brain (a stroke). Otherwise we need complete nerve exam findings and results of other testing (vestibular testing showing skew deviation or vertical nystagmus, head thrust test, VNG (Videonystagmography), ENG (electronystagmography)). The results of these tests should show why this test is still needed. These were not given to us. It is suggested that you follow up with your doctor for the next step in your care. Add'l Steps Taken (Pt Notified, Reached out to Provider, etc.):Sent telephone encounter to Dr. Siva Burgos and Nurse Martin Peer to Peer review offered by Payer: Yes Peer to Peer review expires: 12/08/2023 Case #: [id number] Phone #: [phone] Ordering Provider: Siva Burgos MD Phys. Notified? Yes Note for ordering office: If patient wishes to cancel the appointment, please complete cancellationprocess from the patient's appointment desk. Notification Made to Patient: No Waiting for Peer to Peer documented in this encounter Plan of Treatment Not on file documented as of this encounter Visit Diagnoses Not on filedocumented in this encounter Additional Health Concerns Assessment Noted Time PHQ-9 Depression Total Score: 2 04/18/20 23 1:16 PM CDT documented as of this encounter Care Teams Experimental Outboard Motors Mechanic Relationship Specialty Start Date End Date Siva Burgos MD [address] [place] [address] PCP - General Internal Medicine 02/26/20 Ananth Green DPM Podiatry 04/05/22 Fidencio Zimmer MD [address] [address] Consulting Physician Colon and Rectal Surgery 08/08/23 documented as of this encounter
--- OUTSIDE RECORDS SUMMARY | 2024-06-23 18:21 | XMS_ITS | Encounter Summary ---
Author Organization [facility] Address [address] [place] [address] Phone Care Team Providers Care Marketing Business Analyst Name Role Phone Siva Burgos MD Primary Care Provider [phone] Ananth Green DPMichelle Unavailable Unavailable Reason for Visit * PT/OT/ST (Routine) - Closed Specialty Diagnoses / Procedures Referred By Travis t Referred To Contact Rehabilitation Diagnoses Achilles tendinitis of left lower extremity Calcaneal spur of foot, left Left foot pain Ananth Green DPM [facility] [address], [place] [address] [address] Phone: tel: fax: Referral ID Status Reason Start Date Expiration Date Visits Re quested Visits Authorized [id number] Closed 04/05/2022 1 1 Encounter Details Date Type Department Care Team (Latest Contact Info) Description 04/19/2022 2:00 PM CDT Physical Therapy [facility] [address], [place] [address] [place] [address] Ananth Green DPM [place], Kelsey M, PT [place] Achilles tendinitis of left lower [...] suspected to have Coronavirus/COVID-19? No / Unsure 04/19/2022 12:18 PM CDT documented as of this encounter Miscellaneous Notes * Plan of Care - Manpreet Mckeon, PT - 04/19/2022 2:00 PM CDT Initial Evaluation - Electronically signed by: MANPREET MCKEON, PT April 19, 2022 SUBJECTIVE: Onset Date: June 2021 Primary complaint: L heel/ankle pain Patient Narrative: Patient reports that she has been having heel/ankle pain since June as she went to put on a pair of heels and couldn't wear them for too long as it caused her pain. She reports that she stopped going to the gym as things as simple as walking on the treadmill was painful. 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 She reports that she got x-rayswhich showed a bone spur on her heel bone and they said she had heel foot from wearing heels too much. She reports that she has decreased sensation with some numbness and tingling in her calf when she contracts her calf muscle. She reports that due to this, she feels like her calf muscle feels very weak. She reports she notices slightly more swelling in her left ankle than her right ankle as well. She reports that she was given a boot to wear at night to help not point her toe. 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 She states that her weakness and decreased sensation happened prior to her pain in June Symptom Location: left heel - right on tip of calcaneus and into achilles tendon/front of ankle 1) Current pain 0/10 - Intermittent, described as uncomfortable, sometimes sharp - Range 0/10 to 6/10 - Aggravating factors: walking on the treadmill, applying pressure to the heel, walking barefoot, walking in heels - Easing factors: resting, getting off her foot Patient is Right side dominant. 24 hour symptom behavior/sleep: typically patient gets a good night's sleep, but last night her legwas hurting from the knee down to her foot like very uncomfortable This patient exhibits fear avoidance behavior No Pertinent Past Medical History including: sciatica when she had her kids and lingered after /delivery - patient reports that it disapated Red flags: weakness and numbness / tingling Prior treatment attempted: stretches, ice, hot pack, voltaren Coordination of care: Patient denies prior therapy this year for this or any other condition. Patient is not currently seeking other concurrent treatment. Work/Hobbies/Activities: patient reports that she cleans houses 5-6 hours per day; she used to workout everyday but has not been to the gym regularly since June Home Environment: patient lives in a 2-story house with a basement and has to navigate stairs for daily activities Patient's goal for Physical Therapy: to get back to exercising and wear my heels again Patient learning style: - Barriers to learning: no barriers - Preferred learning style: hands-on - Preferred language: Azerbaijani - Bag Builder needed: No Written attendance policy reviewed: Yes Next appointment with referring provider: 05/03 for 1 month follow-up OBJECTIVE Observation: Objective Data: Initial evaluation performed this date. Lower Extremity Functional Scale - 51/80 = 64% function Ankle: Range of Motion: All Range of Motion documentation below is measured in degrees unless otherwise indicated. Left Dorsiflexion: AROM: 8 PROM: 10 Right Dorsiflexion: AROM: 18 Left Plantarflexion: AROM: 45 Right Plantarflexion: AROM: 60 Left Inversion: AROM: WFL Right Inversion: AROM: WFL Left Eversion: AROM: WFL Right Eversion: AROM: WFL Strength: All strength measurements out of 5 unless otherwise indicated. Dorsiflexion: Left: 5 Right: 5 Plantar Flexion: Left: 25 SL heel raises (more uncomfortable in tendon area) Right: 25 SL heel raises Inversion: Left: 5 Right: 5 Eversion: Left: 5 Right: 5 Circumference: Slight increased swelling noted in left lower extremity just proximal of ankle joint TREATMENT: Refer to PT OP Rehab Therapy Treatment flowsheet for details/minutes. Taping: A strip was applied from the plantar surface of patient's heel splitting into two smaller strips at musculotendinous junction and traveling to lateral and medial heads of the gastroc. A decompression strip was also applied around patient's posterior ankle across her achilles tendon. Education: Patient was educated on the overall plan of care, the findings of the initial evaluation, and the goals for PT. Patient was in agreement with the plan of care. She was educated on her new HEP and was given a red theraband for resistance. She was educated on the benefits and adverse effects of taping. Home Exercises distributed via handout. [employer] information: Access Code: [email or web address] URL: [email or web address] Date: 04/19/2022 Prepared by: Manpreet Sanford Exercises Gastroc Stretch on Wall - 1 x daily - 7 x weekly - 3 sets - 30 seconds hold Soleus Stretch on Wall - 1 x daily - 7 x weekly - 3 sets - 30 seconds hold Ankle Dorsiflexion with Resistance - 1 x daily - 7 x weekly - 3 sets - 10 reps Ankle Eversion with Resistance - 1 x daily - 7 x weekly - 3 sets - 10 reps Ankle Inversion with Resistance - 1 x daily - 7 x weekly - 3 sets - 10 reps ASSESSMENT: Other Details: Therapy Diagnosis: Decreased ROM of left ankle; Left ankle pain Medical Diagnosis: Achilles tendinitis of left lower extremity; Calcaneal spur of foot, left; Left foot pain Luciana Yost is a 46 y.o. 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 Clinical impression at this time: Patient will benefit from ongoing skilled Physical Therapy intervention. Rehab potential: good. Complexities that are a barrier to service: no foreseeable barriers All charges entered today are appropriate and [...] relative impairments in order to optimize rehabilitation. - Report that she is working out [...] relief, soft tissue extensibility and joint mobility (39844) - Therapeutic exercise program for: motion/mobility, strengthening, flexibility, and functional limitations (25180) - Therapeutic activities for functional activity education/training and in home safety recommendations as appropriate (44089) - Neuro Muscular Re-education for body mechanics education and postural re- education as appropriate (83445) - Patient education regarding posture, ergonomics, body mechanics, HEP progression and exercise performance - Individualized home exercise program - Modalities as needed for pain relief, anti-inflammatory effect and soft tissue extensibility - Gait training (45645) - Trigger point dry needling for pain relief and reducing tension in associated musculature (03016 or 39009) Precautions: none Treatment may be altered based on patient progression and symptoms. The plan of care, as well as the benefits and risks of therapy were reviewed with the patient and the patient consented to treatment.. Cosigned by Ananth Green DPM at 04/26/2022 9:03 AM HAT COPYIST COPYIST documented in this encounter Plan of Treatment [...] documented as of this encounter Care Teams Marketing Business Analyst Relationship Specialty Start Date End Date Siva Burgos MD [address] [place] [address] PCP - General Internal Medicine 02/26/20 Ananth Green DPM Podiatry 04/05/22 documented as of this encounter
--- OUTSIDE RECORDS SUMMARY | 2024-06-23 18:21 | XMS_ITS | Encounter Summary ---
Author Organization [facility] Address [address] [place] [address] Phone Care Team Providers Care Hr Representative Name Role Phone Siva Burgos MD Primary Care Provider [phone] Ananth Green DPM Unavailable Unavailable Reason for Visit * Reason Comments Abdominal Pain * Auth/Cert (Routine) Specialty Diagnoses / Procedures Referred By Contelijah t Referred To Contact Diagnoses Unspecified acute appendicitis Reviewed [place] 08/06 Fidencoi Zimmer MD #[address] [address] Phone: tel: fax: Referral ID Status Reason Start Date Expiration Date Visits Re quested Visits Authorized [id number] 1 1 Encounter Details Date Type Department Care Team (Late st Contact Info) Description 08/04/2023 7:40 AM BRIM PRESSER - 08/04/2023 9:10 AM BRIM PRESSER [facility] [address] [place] [address] Fidencio Zimmer MD #[address] [address] LAPAROSCOPIC APPENDECTOMY Surgery Details Date/Time Status Location OR Service Patient Class Case Cl ass Case Type Trauma Case? 08/04/2023 7:40 AM Posted [facility] OR 01 General Inpatient Urgent Panel 1 Procedure LRB Anes Op Region Wound Class Comments LAPAROSCOPIC APPENDECTOMY N/A General Abdomen Claudia sharif Contaminated Surgeon Surgeon Role Service Panel Fidencio Zimmer MD Primary General 1 documented in this encounter Social History Tobacco Use Types Packs/Day Years Used Date Smoking Tobacco: Never Smokeless Tobacco: Never Tobacco Cessation:Counseling Given: Not Answered Alcohol Use Standard Drinks/Week Comments Not Currently 0 (1 standard drink = 0.6 oz pur e alcohol) Rare [facility] Utilities Answer Date Recorded In the [...] place to sleep or slept in a longterm (including now)? No 08/03/2023 Education Answer Date [...] Sign Reading Time Taken Comments Blood Pressure 74/57 08/04/2023 9:08 AM BRIM PRESSER Pulse 100 08/04/2023 9:08 AM BRIM PRESSER Temperature 36.2 ??C (97.2 ??F) 08/04/2023 9:08 AM CS T Respiratory Rate 23 08/04/2023 9:08 AM BRIM PRESSER Oxygen Saturation 100% 08/04/2023 9:08 AM BRIM PRESSER Inhaled Oxygen Concentration - - Weight 62.5 kg (137 lb 12.8 oz) 08/03/2023 9:28 PM BRIM PRESSER Height 160 cm (5' 3 ) 08/03/2023 9:28 PM BRIM PRESSER Body Mass Index 24.41 08/03/2023 9:28 PM BRIM PRESSER documented in this encounter Functional Status * Within the last year, have you been humiliated or emotionally abused in other ways by your partner or ex-partner? Answer Date of Assessment Author No 08/03/2023 9:32 PM BRIM PRESSER Bryan Alicea RN * Within the last year, have you been afraid of your partner or ex-partner? Answer Date of Assessment Author No 08/03/2023 9:32 PM BRIM PRESSER Bryan Alicea, RN * Within the last year, have you been raped or forced to have any kind of sexual activity by your partner or ex-partner? Answer Date of Assessment Author No 08/03/2023 9:32 PM BRIM PRESSER Bryan Alicea, RN * Within the last year, have you been kicked, hit, slapped, or otherwise physically hurt by your partner or ex-partner? Answer Date of Assessment Author No 08/03/2023 9:32 PM BRIM PRESSER Bryan Alicea RN documented as of this [...] Signed: Fidencio Zimmer MD, 08/04/2023, 7:28 PM BRIM PRESSER PRESSER documented in this encounter Medications at Time [...] Will go ahead and d/c her home. PRESSER * Fidencio Zimmer MD - 08/04/2023 10:55 AM CST Noticed by pattern drafter Sam that patient bp 70s/40s. Fluid given and albumin given. No change. Will put her in icu and start luisa to help. Patient was 70s/40s prior to the operation and did get intraop luisa. PRESSER * Fidencio Zimmer MD - 08/03/2023 8:35 PM CST D/w Dr. Nguyen at 08/03/20232014. Will take patient to OR for lap appy at 0800 tomorrow. PRESSER documented in this encounter H&P Notes * [...] 2018 [facility] ??? COLONOSCOPY W/ BIOPSY 01/2023 [facility] ??? HEMORRHOID SURGERY external only ??? WISDOM [...] acute appendicitis This note was dictated using [employer] fluency dictation system and there may be errors in fire suppression captain. Despite proof reading the note, there may be mistakes and I apologize for those. By: Fidencio Zimmer MD, 08/04/2023, 8:10 AM BRIM PRESSER [phone] (office) Primary Care Physician: Siva Burgos MD PRESSER documented in this encounter Nursing Notes * Cira Stein, RN - 08/04/2023 8:58 AM CST Specimen Transported to OR SPECIMEN ROOM by Jose STEIN. PRESSER * Cira Stein RN - 08/04/2023 8:55 AM CST WHO Safety Checklist Team Debriefing completed. Additional information discussed during debrief, inrelation to patient specific assessment, includes blood loss, glycemic control, pain management, and venous thromboembolism prophylaxis, as needed. All members of the surgical team participated in the debriefing process, and each records information as applicable in their respective areas of documen tation. PRESSER documented in this encounter OR Notes * OR Surgeon - Fidencio Zimmer MD - 08/04/2023 9:01 AM CST [facility] Patient Name: Luciana Yost Patient Location: OR/OR 49:01 AM BRIM PRESSER Event Time In Patient In - Facility (Arrived) 08/03/2023 1749 Registration In Waiting IP Patient Sent For 08/04/2023 0720 OP Patient Sent For Surgeon Complete Anesthesia Eval Complete BRIM PRESSER Reviewed Plan Patient In - Pre-op/Holding Area [...] Anesthesia Stop Surgeon: Fidencio Zimmer MD 1st Derrick Man: Eva Mckeon RN 1st Scrub: Guera Das, RN Spout Positioner: Cira Stein, RN Preoperative diagnosis: acute appendicitis Postoperative diagnosis: Acute appendicitis with gangrene, non perforated, large right ovary Procedure: Laparoscopic appendectomy Anesthesia: General BRIM PRESSER: Markus Campbell APRN, TK EBL: 10 mL Fluids: 1500 cc Blood [...] sponges, instruments, and needles. Thank you. Fidencio Zimmre MD 08/04/2023, 9:01 AM BRIM PRESSER PRESSER documented in this encounter ED Notes * Chelsea Howard RN - 08/03/2023 9:11 PM CST Patient transported to [address] [place] [address] via stretcher accompanied by manufacturing process technician. Patient in stable condition attime of transfer. IV antibiotic and fluids to be continued to medical floor. PRESSER * Chelsea Howard RN - 08/03/2023 9:07 PM CST Pt medicated per provider orders. Pt educated on intended effects and side effects of medication and verbalized understanding, able to provide teach back of education. PRESSER * Chelsea Howard RN - 08/03/2023 8:41 PM CST Pt medicated per provider orders. Pt educated on intended effects and side effects of medication and verbalized understanding, able to provide teach back of education. PRESSER * Chelsea Howard RN - 08/03/2023 8:12 PM CST Patient ambulated to and from bathroom to provide urine sample. Tolerated well. Urine sample sent to lab. Patient now resting on stretcher with no requests at this time. ERP at bedside to go over assessment findings. Call light within reach. Family members at bedside. Will continue to monitor. PRESSER * Chelsea Howard RN - 08/03/2023 7:23 PM CST Patient placed on 2 liters oxygen via nasal cannula after Fentanyl administration. PRESSER * Chelsea Howard RN - 08/03/2023 7:20 PM CST Pt medicated per provider orders. Pt educated on intended effects and side effects of medication and verbalized understanding, able to provide teach back of education. PRESSER * Chelsea Howard RN - 08/03/2023 7:07 PM CST Patient report received from BALJIT Mata. Patient resting on stretcher with no requests at this time. Family members at bedside. Call light within reach. Will continue to monitor. PRESSER * Vanessa Nguyen MD - 08/03/2023 6:32 [...] Date ??? CARPAL TUNNEL RELEASE Left 2018 [place], [facility] ??? CHOLECYSTECTOMY ??? COLONOSCOPY W/ BIOPSY 01/2023 [facility] ??? HEMORRHOID SURGERY Social History Socioeconomic History [...] past 24 hour(s)) Comprehensive Metabolic Panel (Cmp) [id number] Result Value Ref Range SODIUM 142 136 [...] who has accepted the patient for observation. PRESSER * Mary Delgado RN - 08/03/2023 6:30 PM CST Patient is resting in room with call light at bedside. Patient informed about wait time and verbalizes understanding. Patient denies needs at this time and verbalizes understanding that RN will complete hourly rounding. PRESSER * Stephanie Cantu RN - 08/03/2023 5:56 PM CST Pt to ED room 8 with c/o constant low abdominal cramping since this morning. Denies n/v/d or constipation. Last BM was this morning and normal for pt. Call light in reach. PRESSER documented in this encounter Miscellaneous Notes * Ryan - Yumiko Da Silva RN - 08/04/2023 8:50 PM BRIM PRESSER Patient discharged to home, left ICU via wheelchair, ambulatory to car with steady gait. Pt's family at bedside when discussing all follow up care appointments. New medications were reviewed and understood. Pt understands where to machine operator picker medications. All discharge teaching was done with a teach-back method. All IV's were removed. All belongings were sent with the pt. Pt A&Ox4 with no complaints of pain, VSS. No acute distress noted. YUMIKO DA SILVA RN PRESSER PRESSER * Plan of Care - Yumiko Da Silva RN - 08/04/2023 7:43 PM BRIM PRESSER Problem: Adult Inpatient Plan of Care Goal: [...] Fall and Fall-Related Injury Outcome: Outcome Achieved PRESSER * Interdisciplinary - Yumiko Da Silva RN - 08/04/2023 7:30 PM BRIM PRESSER Spoke to Dr. Zimmer over the phone, relayed pt's report of dizziness and trending BP's. Pt ok to d/chome, per provider. PRESSER * Interdisciplinary - Yumiko Da Silva RN - 08/04/2023 7:00 PM BRIM PRESSER Patient bedside shift report received from BALJIT Burrell. Assumed pt care at this time. IVF's and gttrates verified. SBP goal verified, BP trends gone over. Pt ambulated to the bathroom with a slow steady gait with standby assist. Pt ambulated back to chair, sitting up with call light in reach. Pt is A&Ox4, updated to plan of care. No acute distress noted. PRESSER * Plan of Care - Ashanti Betancourt RN - 08/04/2023 5:10 PM CST Problem: Adult Inpatient Plan of Care Goal: Plan of Care Review Outcome: Ongoing (see interventions/notes) Flowsheets (Taken 08/04/2023 0811) Plan of Care Reviewed With: patient Progress: [...] and Fall-Related Injury Outcome: Ongoing (see interventions/notes) PRESSER * Mariaelena Doe RN - 08/04/2023 10:19 AM BRIM PRESSER Notified Dr. Zimmer of continued hypotension. Pt will be transferred to ICU for pharmacological intervention and monitoring. Notified Crescencio Dexter. Per Guerita, pt will go to ICU bed 5. PRESSER * Mariaelena Doe RN - 08/04/2023 9:[address] Zimmer notified of no change in BP after fluid bolus. Verbal order given for IV albumin. Will update after infusion. PRESSER * Mariaelena Doe RN - 08/04/2023 9:10 AM CST Anesthesia and Dr. Zimmer aware of persistent hypotension. Will continue with fluid bolus. PRESSER * Plan of Care - Mariaelena Padron RN - 08/04/2023 8:13 AM CST Patient will be discharged from PACU when criteria has been met. PRESSER * Carlie Wu RN - 08/04/2023 7:37 AM CST Patient resting per bed. Awake and alert. Up to bathroom. Voided clear yellow urine. No complaints of pain or discomfort at this time. All fall and safety precautions in place. Patient left floor viabed for pre op, stable. Will continue to assess when patient returns PRESSER * Interdisciplinary - Mariaelena Padron RN - 08/04/2023 7:30 AM CST Pt in PACU for preop monitoring @ 0730. PRESSER * Plan of Care - Julianna Alicea [...] (Individualized) Outcome: Ongoing (see interventions/notes) Flowsheets (Taken 08/04/2023255) Today's Goal: Pain control Goal: Absence of Hospital-Acquired Illness or Injury Outcome: Ongoing (see interventions/notes) Intervention: Prevent and Manage VTE (Venous Thromboembolism) Risk Flowsheets (Taken 08/04/2023 025) VTE Prevention/Management: sequential compression devices on Goal: Optimal Comfort and Wellbeing Outcome: Ongoing (see interventions/notes) Intervention: Monitor Pain and Promote Comfort Flowsheets (Taken 08/04/2023 0256) Pain Management Interventions: single medication modality position adjusted quiet environment facilitated relaxation techniques promoted pillow support provided breathing exercises care clustered Intervention: Provide Person-Centered Care Flowsheets (Taken 08/03/20232236) Trust Relationship/Rapport: care explained choices provided emotional support provided empathic listening provided questions answered questions encouraged safe/supportive environment facilitated respect patient/family decisions provided thoughts/feelings acknowledged Goal: Readiness for Transition of Care Outcome: Ongoing (see interventions/notes) PRESSER * Julianna Rivas RN - 08/03/2023 9:45 PM CST Initial [...] Indicated Wound care: N/A JULIANNA ALICEA RN PRESSER * Julianna Rivas RN - 08/03/2023 9:24 PM CST Patient arrived to room 233 via stretcher with family at bedside, all personal belongings in tow, IVF infusing upon arrival PRESSER documented in this encounter Plan of Treatment Not on file documented as of this encounter Procedures Procedure Name Priority Date/Time Associated Diagnosis Comments PATHOLOGY SURGICAL Routine 08/04/2023 8: 50 AM BRIM PRESSER LAPAROSCOPIC APPENDECTOMY 08/04/2023 7:52 AM BRIM PRESSER appendicitis CBC WITH AUTO DIFFERENTIAL Routine 08/04/2023 6:17 AM BRIM PRESSER MAGNESIUM (MG) Routine 08/04/2023 6:17 AM BRIM PRESSER COMPLETE BLOOD COUNT (CBC) WITH DIFF Routine 08/04/2023 6:17 AM BRIM PRESSER BASIC METABOLIC PANEL W/ CALCIUM TOTAL Routine 08/04/2023 6:17 AM BRIM PRESSER RHYTHM STRIP 08/04/2023 12:00 AM BRIM PRESSER RHYTHM STRIP 08/04/2023 12:00 AM BRIM PRESSER UR TEST QUAL STAT 08/03/2023 8:57 PM BRIM PRESSER URINALYSIS REFLEX IF INDICATED BY ABNORMAL RESULTS STAT 08/03/2023 8:[address] ABDOMEN PELVIS W/ CONTRAST Stat with Interpretation 08/03/2023 7:47 PM BRIM PRESSER CRITICAL CARE Routine 08/03/2023 6:32 PM BRIM PRESSER CBC WITH AUTO DIFFERENTIAL STAT 08/03/2023 6:00 PM BRIM PRESSER LIPASE STAT 08/03/2023 6:00 PM BRIM PRESSER CMP (COMPREHENSIVE METABOLIC PANEL) STAT 08/03/2023 6:00 PM BRIM PRESSER COMPLETE BLOOD COUNT (CBC) WITH DIFF STAT 08/03/2023 6:00 PM BRIM PRESSER documented in this encounter Results * Pathology Surgical (08/04/2023 8:50 AM BRIM PRESSER) Case Report Surgical Pathology Report ? Case: [id number] ? Authorizing Provider: ??Fidencio Zimmer MD ? Collected: ? 08/04/2023 08:50 AM ? Ordering Location: ? [facility] ? Received: ?08/06/2023 08:50 AM ? [facility] ? Main OR ? Pathologist: ? Debra Lake MD PhD ? Specimen: ?Appendix, APPENDIX ? 08/07/2023 10:09 AM [facility] FINAL DIAGNOSIS Appendix, appendectomy: - Acute appendicitis and periappendicitis 08/07/2023 10:09 AM [facility] Pre-Operative Diagnosis appendicitis 08/07/2023 10:09 AM [facility] Gross Description A. APPENDIX The [...] that is necrotic and green-nye in appearance. Direct Marketing Intern sample submitted din cassette A1. KS/sb Total time of fixation is 60 hours, 56 minutes. 08/07/2023 10:09 AM [facility] Microscopic Description Microscopic examination was performed which supports the final diagnosis. All control tissues stained appropriately. 08/07/2023 10:09 AM [facility] Tissue APPENDIX STRUCTURE / Unknown 08/04/2023 8:50 AM BRIM PRESSER 08/06/2023 8:50 AM BRIM PRESSER us Fidencio Zimmer MD PATHOLOGY/CYTOLOGY ORDERABLES Fi nal Result [facility] [address] [place] [address] * (ABNORMAL) CBC with Auto Differential (08/04/2023 6:17 AM BRIM PRESSER) Only the most recent of2 resultswithin the time period is included. WBC 5.09 4.00 - 12.00 10(3)/mcL 08/04/2023 7:19 AM [facility] RBC 3.77(L) 3.80 - 5.30 10(6)/mcL 08/04/2023 7:19 AM [facility] HEMOGLOBIN (HGB) 11.6(L) 12.0 - 15.8 g/dL 08/04/2023 7:19 AM [facility] HEMATOCRIT (HCT) 34.8(L) 36.0 - 47.0 % 08/04/2023 7:19 AM [facility] MCV 92.3 82.0 - 96.0 fL 08/04/2023 7:19 AM [facility] MCH 30.8 26.0 - 34.0 pg 08/04/2023 7:19 AM [facility] MCHC 33.3 31.0 - 36.0 g/dL 08/04/2023 7:19 AM [facility] PLATELET COUNT 175 140 - 440 10(3)/mcL 08/04/2023 7:19 AM [facility] RDW 12.4 11.8 - 15.5 % 08/04/2023 7:19 AM [facility] MPV 9.5(L) 9.7 - 12.4 fL 08/04/2023 7:19 AM [facility] NEUTROPHILS 91.7(H) 47.0 - 73.0 % 08/04/2023 7:19 AM [facility] LYMPHOCYTES 7.5(L) 18.0 - 42.0 % 08/04/2023 7:19 AM [facility] MONOCYTES 0.6(L) 4.0 - 12.0 % 08/04/2023 7:19 AM [facility] EOSINOPHILS 0.0 0.0 - 5.0 % 08/04/2023 7:19 AM [facility] BASOPHILS 0.2 0.0 - 1.0 % 08/04/2023 7:19 AM [facility] ABSOLUTE NEUTROPHILS 4.67 1.60 - 7.70 10(3)/[facility] 08/04/2023 7:19 AM [facility] ABSOLUTE LYMPHOCYTES 0.38(L) 1.30 - 3.20 10(3)/[facility] 08/04/2023 7:19 AM [facility] ABSOLUTE MONOCYTES 0.03(L) 0.20 - 1.00 10(3)/[facility] 08/04/2023 7:19 AM [facility] ABSOLUTE EOSINOPHIL 0.00 0.00 - 0.40 10(3)/[facility] 08/04/2023 7:19 AM [facility] ABSOLUTE BASOPHILS 0.01 0.00 - 0.10 10(3)/[facility] 08/04/2023 7:19 AM [facility] NRBC PER 100 WBC 0 08/04/19 7:19 AM [facility] RESULTS ARE CONSISTENT WITH PERIPHERAL SMEAR REVIEW Yes 08/04/2023 7:19 AM [facility] Blood Venipuncture / Unknown 08/04/2023 6:17 AM BRIM PRESSER 08/04/2023 6:50 AM BRIM PRESSER us Fidencio Zimmer MD HEMATOLOGY ORDERABLES Final Resu lt Performing Organization Address City/[facility]/ZIP Co de Phone Number [facility] [address] [place] [address] * (ABNORMAL) Magnesium (Mg) (08/04/2023 6:17 AM BRIM PRESSER) MAGNESIUM 1.4(L) 1.6 - 2.6 mg/dL 08/04/2023 7:24 AM BRIM PRESSER [facility] Blood Venipuncture / Unknown 08/04/2023 6:17 AM BRIM PRESSER 08/04/2023 6:50 AM BRIM PRESSER us Fidencio Zimmer MD CHEMISTRY ORDERABLES Final Resul t Performing Organization Address [facility] Co de Phone Number [facility] [address] [place] [address] * (ABNORMAL) BMP with Ca, Total (08/04/2023 6:17 AM BRIM PRESSER) SODIUM 144 136 - 145 mmol/L 08/04/2023 7:24 AM BRIM PRESSER [facility] POTASSIUM 3.3(L) 3.5 - 5.1 mmol/L 08/04/2023 7:24 AM BRIM PRESSER [facility] CHLORIDE 115(H) 98 - 107 mmol/L 08/04/2023 7:24 AM BRIM PRESSER [facility] CO2, VENOUS 20(L) 22 - 30 mmol/L 08/04/2023 7:24 AM BRIM PRESSER [facility] ANION GAP 12.3 <18.0 mmol/L 08/04/2023 7:24 AM [facility] GLUCOSE 108(H) 70 - 99 mg/dL 08/04/2023 7:24 AM [facility] BUN 19(H) 5 - 18 mg/dL 08/04/2023 7:24 AM BRIM PRESSER [facility] CREATININE, BLOOD 0.84 0.60 - 1.00 mg/dL 08/04/2023 7:24 AM BRIM PRESSER [facility] BUN/CREATININE RATIO 23(H) 12 - 20 ratio 08/04/2023 7:24 AM BRIM PRESSER [facility] CALCIUM 8.1(L) 8.7 - 10.5 mg/dL 08/04/2023 7:24 AM BRIM PRESSER [facility] GFR, ESTIMATED >60 >=60 08/04/2023 7:24 AM [facility] Comment: Creatinine Clearance is the preferred criteria for selecting drug dose adjustments in renally impaired patients. ??The GFR is provided as additional pertinent clinical information. GFR is reported in mL/min/1.73 sq m. Calculation based on the Chronic Kidney Disease Epidemiology Collaboration (CKD- EPI) equation refit without adjustment for race. GFR, EST. >60 >=60 024 7:24 AM BRIM PRESSER [facility] GFR, EST. NONAFRICAN >60 >=60 08/04/2023 7:24 AM BRIM PRESSER [facility] Blood Venipuncture / Unknown 08/04/2023 6:17 AM BRIM PRESSER 08/04/2023 6:50 AM BRIM PRESSER us Fidencio Zimmer MD CHEMISTRY ORDERABLES Final Resul t Performing Organization Address City/[facility]/ZIP Co de Phone Number [facility] [address] [place] [address] * RHYTHM STRIP (08/04/2023 12:00 AM BRIM PRESSER) Only the most recent of2 resultswithin the time period is included. 08/04/2023 us Provider Scan IMG ECG ORDERABLES Final Result RESULTING AGENCY * Ur Test Qual (08/03/2023 8:57 PM BRIM PRESSER) PREG TEST,MONOCLONA L Negative 08/03/2023 9:12 PM BRIM PRESSER [facility] Urine Non-Phlebotomy Collection / Unknown 08/03/2023 8:57 PM BRIM PRESSER 08/03/2023 8:57 PM BRIM PRESSER us Vanessa Nguyen MD URINE ORDERABLES Final Re sult [facility] [address] [place] [address] * (ABNORMAL) URINALYSIS REFLEX IF INDICATED BY ABNORMAL RESULTS (08/03/2023 8:12 PM BRIM PRESSER) SPECIFIC GRAVITY 1.015 1.003 - 1.030 08/03/2023 8:47 PM BRIM PRESSER [facility] URINE PH 9.0 5.0 - 9.0 08/03/2023 8:47 PM BRIM PRESSER [facility] WBC ESTERASE Negative Negative 08/03/2023 8:47 PM BRIM PRESSER [facility] NITRITE Negative Negative 08/03/2023 8:47 PM BRIM PRESSER [facility] PROTEIN, RANDOM URINE Negative Negative 08/03/2023 8:47 PM BRIM PRESSER [facility] URINE GLUCOSE, QUAL Negative Negative 08/03/2023 8:47 PM BRIM PRESSER [facility] URINE KETONES 5 mg/dL(A) Negative 08/03/2023 8:47 PM BRIM PRESSER [facility] UROBILINOGEN Normal Normal mg/dL 08/03/2023 8:47 PM BRIM PRESSER [facility] URINE BLOOD Negative Negative moi/ul 08/03/2023 8:47 PM BRIM PRESSER [facility] URINALYSIS COLOR Yellow 08/03/19 8:47 PM BRIM PRESSER [facility] URINALYSIS CLARITY Clear 08/03/2023 8:47 PM [facility] Urine URINE SPECIMEN COLLECTION, CLEAN CATCH / Unknown Non-Phlebotomy Collection / Unknown 08/03/2023 8:12 PM BRIM PRESSER 08/03/2023 8:28 PM BRIM PRESSER us Richi Kent MD URINE ORDERABLES Final Res ult [facility] [address] [place] [address] * CT ABDOMEN PELVIS W/ CONTRAST (08/03/2023 7:47 PM BRIM PRESSER) Anatomical Region Laterality Modality Abdomen N/A Computed Tomogra phy 08/03/2023 8:40 PM BRIM PRESSER Impressions 08/03/2023 8:43 PM BRIM PRESSER IMPRESSION: Changes of acute appendicitis without evidence of perforation or abscess. 7.6 cm hypodensity right pelvic adnexa likely represents an ovarian cyst. Ultrasound is suggested to better characterize. I called these critical results by phone at time of dictation to DR. VANESSA NGUYEN Narrative 08/03/2023 8:43 PM BRIM PRESSER EXAM DESCRIPTION: ?? CT ABDOMEN PELVIS W/ [...] or air collection to suggest angel perforation. ??No adjacent abscess or free intraperitoneal [...] PM T: ??08/03/2023 8:40 PM Report ID: [id number] Reading Location: ??[id number] Procedure Note Stepan Obrien MD - 08/03/2023 [...] Stepan Obrien M.D. RB: DEJUAN Report ID: [id number] Reading Location: [place] [address] IMPRESSION: Changes of acute appendicitis without evidence of perforation or abscess. 7.6 cm hypodensity right pelvic adnexa likely represents an ovarian cyst. Ultrasound is suggested to better characterize. I called these critical results by phone at time of dictation to DR. VANESSA NGUYEN us Vanessa Nguyen MD IMG CT ORDERABLES Final R esult * Critical Care (08/03/2023 6:32 PM BRIM PRESSER) Narrative Vanessa Nguyen MD - 08/03/2023 6:32 PM BRIM PRESSER Vanessa Nguyen MD ? 08/03/2023 ??8:29 PM [...] Final Result * Lipase (08/03/2023 6:00 PM BRIM PRESSER) [facility] LIPASE 44 8 - 78 U/L 08/04/2023 6:43 AM BRIM PRESSER [facility] Blood Venipuncture / Unknown 08/03/2023 6:00 PM BRIM PRESSER 08/04/2023 6:28 AM BRIM PRESSER Result [facility] [facility] Vanessa Nguyen MD CHEMISTRY ORDERABLES Sarah l Result Performing Organization Address City/State/[facility] Co de Phone Number [facility] [place] [address] * (ABNORMAL) Comprehensive Metabolic Panel (Cmp) [id number] (08/03/2023 6:00 PM BRIM PRESSER) [facility] SODIUM 142 136 - 145 mmol/L 08/03/2023 7:28 PM BRIM PRESS[facility] POTASSIUM 3.4(L) 3.5 - 5.1 mmol/L 08/03/2023 7:28 PM BRIM PRESSER [facility] CHLORIDE 107 98 - 107 mmol/L 08/03/2023 7:28 PM [facility] CO2, VENOUS 23 22 - 30 mmol/L 08/03/2023 7:28 PM [facility] ANION GAP 15.4 <18.0 mmol/L 08/03/2023 7:28 PM [facility] GLUCOSE 138(H) 70 - 99 mg/dL 08/03/2023 7:28 PM [facility] BUN 15 5 - 18 mg/dL 08/03/2023 7:28 PM [facility] CREATININE, BLOOD 0.74 0.60 - 1.00 mg/dL 08/03/2023 7:28 PM [facility] BUN/CREATININE RATIO 20 12 - 20 ratio 08/03/2023 7:28 PM [facility] TOTAL PROTEIN 7.3 6.3 - 8.2 g/dL 08/03/2023 7:28 PM [facility] ALBUMIN 4.5 3.5 - 5.0 g/dL 08/03/2023 7:28 PM [facility] A/G RATIO 1.6 1.0 - 2.2 08/03/2023 7:28 PM [facility] CALCIUM 9.7 8.7 - 10.5 mg/dL 08/03/2023 7:28 PM [facility] T BILI 0.6 0.2 - 1.2 mg/dL 08/03/2023 7:28 PM [facility] SGOT (AST) 25 5 - 34 U/L 08/03/2023 7:28 PM [facility] SGPT (ALT) 21 0 - 55 U/L 08/03/2023 7:28 PM [facility] ALKALINE PHOSPHATASE 118 40 - 150 U/L 08/03/2023 7:28 PM [facility] GFR, ESTIMATED >60 >=60 08/03/2023 7:28 PM [facility] Comment: Creatinine Clearance is the preferred criteria for selecting drug dose adjustments in renally impaired patients. ??The GFR is provided as additional pertinent clinical information. GFR is reported in mL/min/1.73 sq m. Calculation based on the Chronic Kidney Disease Epidemiology Collaboration (CKD- EPI) equation refit without adjustment for race. GFR, EST. >60 >=60 024 7:28 PM BRIM PRESSER [facility] GFR, EST. NONAFRICAN >60 >=60 08/03/2023 7:28 PM BRIM PRESSER [facility] Blood Venipuncture / Unknown 08/03/2023 6:00 PM BRIM PRESSER 08/03/2023 7:06 PM BRIM PRESSER us Richi Kent MD CHEMISTRY ORDERABLES Final Result [facility] [place] [address] documented in this encounter Visit Diagnoses Not on filedocumented in this encounter Admitting Diagnoses Diagnosis Appendicitis, acute Acute appendicitis without mention of peritonitis documented in this encounter Administered Medications Inactive Administered Medications - up to 3 most recent administrations Medication Order MAR Action Action Date Dose Rate Site 0.9 % sodium chloride with potassium chloride 20 mEq/L infusion at 100 mL/hr, Intravenous, CONTINUOUS, Starting on Sun08/03/23 at 2200, Until Sun08/05/23 at 0023 Rate Verify 08/04/2023 6:45 PM BRIM PRESSER 100 mL/hr Rate Verify 08/04/2023 5:00 PM BRIM PRESSER 100 mL/hr Rate Verify 08/04/2023 3:00 PM BRIM PRESSER 100 mL/hr acetaminophen (TYLENOL) suppository 650 mg 650 mg, Rectal, EVERY 6 HOURS, First dose on Sun08/03/23 at 2200, Until Discontinued acetaminophen (TYLENOL) tablet 650 mg 650 mg, Oral, EVERY 6 HOURS, First dose on Sun08/03/23 at 2200, Until Discontinued Given 08/04/2023 4:41 PM BRIM PRESSER 650 mg Given 08/04/2023 11:13 AM BRIM PRESSER 650 mg Given 08/03/2023 9:40 PM BRIM PRESSER 650 mg bupivacaine (MARCAINE) 0.5 % injection ONCE (in OR), Starting on 08/04/23 at 0852, Until 08/04/23 at 0908, INTRA-OP Given 08/04/2023 8:52 AM BRIM PRESSER 20 mL Operative Site famotidine (PEPCID) tablet 20 mg 20 mg, [...] ProphylaxisIndications:Stress Ulcer Prophylaxis Given 08/04/2023 8:07 PM BRIM PRESSER 20 mg Given 08/04/2023 11:13 AM BRIM PRESSER 20 mg famotidine (PF) (PEPCID) injection 20 [...] volume of 5-10 ml., Indications: Stress Ulcer ProphylaxisIndications:Str ess Ulcer Prophylaxis Given 08/03/2023 9:41 PM BRIM PRESSER 20 mg HEParin (porcine) injection 5,000 Units 5,000 Units, Subcutaneous, EVERY 8 HOURS SCHEDULED (3 times per day), First dose on 08/04/23 at 0600, Until Discontinued Given 08/04/2023 2:44 PM BRIM PRESSER 5,000 Units Right Abdomen ketorolac (TORADOL) injection 15 mg 15 mg, Intravenous, EVERY 6 HOURS PRN, Starting on Sun08/03/23 at 2127, Until 08/05/23 at 0023, For Moderate Pain, and pain unrelieved by Mild Analgesic medications (if ordered)., Moderate pain or more severe pain if patient requests Given 08/04/2023 8:53 AM BRIM PRESSER 15 mg ondansetron (ZOFRAN) injection 4 mg 4 mg, Intravenous, EVERY 6 HOURS PRN, Starting on Sun08/03/23 at 2127, Until 08/05/23 at 0023, Nausea - 1st line, 1. First Line Antiemetic. 2. Use Injection only if patient unable to tolerate oral medications. Given 08/04/2023 3:34 AM BRIM PRESSER 4 mg ondansetron (ZOFRAN-ODT) disintegrating tablet 4 [...] 2) increasing dosage, or 3) changing to PHOTOENGRAVING APPRENTICE. phenylephrine 50 mg in 0.9 % sodium [...] dose range. Rate Change 08/04/2023 4:30 PM BRIM PRESSER 10 mcg/min 3 mL/hr Rate Change 08/04/2023 3:45 PM BRIM PRESSER 20 mcg/min 6 mL/hr Rate Change 08/04/2023 3:00 PM BRIM PRESSER 30 mcg/min 9 mL/hr piperacillin-tazobactam (ZOSYN) 4.5 g in sodium chloride 0.9 % 100 mL IVPB 4.5 g, Intravenous, EVERY 8 HOURS, First dose on 08/04/23 at 0100, Until Discontinued, Administer over 4 Hours, Lactated ringer? s solution is not compatible with piperacillin/tazobactam. Run LR and piperacillin/tazobactam in separate lines or contact provider to request an alternate maintenance fluid., Indications: Intra-Abdominal Infection, at 25 mL/hrIndications:Intra-Abdominal Infection New Bag 08/04/2023 4:42 PM BRIM PRESSER 4.5 g 25 mL/hr New Bag 08/04/2023 12:10 AM BRIM PRESSER 4.5 g 25 mL/hr potassium chloride (KLOR-CON) packet 20 mEq 20 mEq, Oral, 2 TIMES DAILY WITH MEALS, First dose on Sun08/04/23 at 1030, Until Discontinued, Dissolve each packet in at least 120 mL of cold water or other beverage prior to administration. If GI irritation occurs, increase dilution. Given 08/04/2023 4:41 PM BRIM PRESSER 20 mEq Given 08/04/2023 11:13 AM BRIM PRESSER 20 mEq documented in this encounter Active and Recently Administered Medications Times are shown in BRIM PRESSER. Scheduled Medication Order 08/02/2023 08/03/2023 08/04/2023 0.9 % sodium chloride solution (COMPLETED) at 500 mL/hr, Intravenous, ONCE, 1 dose, On Sun08/03/23 at 1900 1833 (New Bag - Provider: Mary Delgado RN)2106 (Stopped - Provider: Chelsea Howard RN) acetaminophen (TYLENOL) suppository 650 mg(Linked Group 1) 650 mg, Rectal, EVERY 6 HOURS, First dose on Sun08/03/23 at 2200, Until Discontinued 2140 (See Alternative - Provider: Julianna Alicea RN) 0400 (See Alternative - Provider: Julianna Alicea RN)1113 (See Alternative - Provider: Ashanti Betancourt RN)1641 (See Alternative - Provider: Ashanti Betancourt RN)2200 (See Alternative - Provider: Yumiko Da Silva, BALJIT) acetaminophen (TYLENOL) tablet 650 mg(Linked Group 1) 650 mg, Oral, EVERY 6 HOURS, First dose on Sun08/03/23 at 2200, Until Discontinued 2140 (Given - Provider: Julianna Alicea RN) 0400 (Not Given - Provider: Julianna Alicea RN - Reason: Patient/family refused)1113 (Given - Provider: Ashanti Betancourt RN)1641 (Given - Provider: Ashanti Betancourt RN)2200 (Not [...] (See Alternative - Provider: Julianna Alicea RN) 1112 (Given - Provider: Ashanti Betancourt RN)2006 (Given [...] Chelsea Howard RN)2110 (Stopped - Provider: Julianna Alicea, BALJIT) piperacillin-tazobactam (ZOSYN) 4.5 g in sodium chloride [...] - Comment: given in OR, charted by anesthesia)1642 (New Bag - Provider: Ashanti Betancourt RN)1958 (Stopped - Provider: Cathy Frias RN) potassium [...] 0009 (Given - Provid er: Julianna Alicea RN)0332 (Given - Provider: Julianna Alicea RN) ketorolac (TORADOL) injection 15 mg 15 mg, Intravenous, EVERY 6 HOURS PRN, Starting on 08/03/23 at 2127, Until 08/05/23 at 0023, For Moderate Pain, and pain unrelieved by Mild Analgesic medications (if ordered)., Moderate pain or more severe pain if patient requests 0853 (Given - Provid er: Markus Campbell APRN, BRIM PRESSER) ondansetron (ZOFRAN) injection 4 mg(Linked Group 3) 4 mg, Intravenous, EVERY 6 HOURS PRN, Starting on 08/03/23 at 2127, Until 08/05/23 at 0023, Nausea - 1st line, 1. First Line Antiemetic. 2. Use Injection only if patient unable to tolerate oral medications. 0334 (Given - Provid er: Julianna Alicea RN) [...] 2) increasing dosage, or 3) changing to PHOTOENGRAVING APPRENTICE. No Frequency Medication Order 08/02/2023 08/03/2023 08/04/2023 [...] Rectal, EVERY 6 HOURS, First dose on 08/03/23 at 2200, Until Discontinued Group 2: famotidine [...] Intravenous, 2 TIMES DAILY, First dose on 08/03/23 at 2200, Until Discontinued, 1. Use Injection [...] documented as of this encounter Care Teams Hr Representative Relationship Specialty Start Date End Date Siva Burgos MD [address] [place] [address] PCP - General Internal Medicine 02/26/20 Ananth Green DPM Podiatry 04/05/22 documented as of this encounter
--- OUTSIDE RECORDS SUMMARY | 2024-06-23 18:21 | XMS_ITS | Encounter Summary ---
Author Organization [employer] Care Team Providers Care Automation Driver Name Role Phone Siva Burgos MD Primary Care Provider [phone] Ananth Green DPM Unavailable Unavailable Encounter Details Date Type Department Care Team (Latest Contact Info) Description 01/02/2023 Travel Social History Tobacco Use Types Packs/Day [...] Childers RMA documented as of this encounter Plan of Treatment Not on file documented as of this encounter Visit Diagnoses Not on filedocumented in this encounter Additional Health Concerns Assessment Noted Time PHQ-9 Depression Total Score: 0 01/03/20 1:00 PM CDT documented as of this encounter Care Teams Automation Driver Relationship Specialty Start Date End Date Siva Burgos MD [address] [place] [address] PCP - General Internal Medicine 02/26/20 Ananth Green DPM Podiatry 04/05/22 documented as of this encounter
--- OUTSIDE RECORDS SUMMARY | 2024-06-23 18:21 | XMS_ITS | Encounter Summary ---
Author Organization [employer] Care Team Providers Care Advertising Solicitor Name Role Phone Siva Burgos MD Primary Care Provider [phone] Ananth Green DPM Unavailable Unavailable Encounter Details Date Type Department Care Team (Latest Contact Info) Description 05/24/2022 Travel Social History Tobacco Use Types Packs/Day [...] suspected to have Coronavirus/COVID-19? No / Unsure 05/24/2022 12:18 PM BUSINESS SERVICES CLERK documented as of this encounter Plan of Treatment Not on file documented as of this encounter Visit Diagnoses Not on filedocumented in this encounter Additional Health Concerns Assessment Noted Time PHQ-9 Depression Total Score: 0 03/02/20 20 1:00 PM CDT documented as of this encounter Care Teams Advertising Solicitor Relationship Specialty Start Date End Date Siva Burgos MD [address] [place] [address] PCP - General Internal Medicine 02/26/20 Ananth Green DPM Podiatry 04/05/22 documented as of this encounter
--- OUTSIDE RECORDS SUMMARY | 2024-06-23 18:21 | XMS_ITS | Encounter Summary ---
Author Organization [employer] Care Team Providers Care Extra Hand Name Role Phone Siva Burgos MD Primary Care Provider [phone] Ananth Green DPM Unavailable Unavailable Encounter Details Date Type Department Care Team (Latest Contact Info) Description 06/05/2022 Travel Social History Tobacco Use Types Packs/Day [...] suspected to have Coronavirus/COVID-19? No / Unsure 06/05/2022 1:59 PM CHEMICAL RESEARCH TECHNICIAN documented as of this encounter Plan of Treatment Not on file documented as of this encounter Visit Diagnoses Not on filedocumented in this encounter Additional Health Concerns Assessment Noted Time PHQ-9 Depression Total Score: 0 03/02/20 1:00 PM CDT documented as of this encounter Care Teams Extra Hand Relationship Specialty Start Date End Date Siva Burgos MD [address] [place] [address] PCP - General Internal Medicine 02/26/20 Ananth Green DPM Podiatry 04/05/22 documented as of this encounter
--- OUTSIDE RECORDS SUMMARY | 2024-06-23 18:21 | XMS_ITS | Encounter Summary ---
Author Organization [facility] Address [address] [place] [address] Phone Care Team Providers Care Auto Salvage Worker Name Role Phone Siva Burgos MD Primary Care Provider Ananth Green DPMichelle Unavailable Unavailable Encounter Details Date Type Department Care Team (Latest Contact Info) Description 06/05/2022 2:15 PM FACILITY ADMINISTRATOR Physical Therapy [facility] [address], [address] [place] [address] Ananth Green, DPM Manpreet Mckeon, [...] Coronavirus/COVID-19? No / Unsure 06/05/2022 1:59 PM FACILITY ADMINISTRATOR documented as of this encounter Miscellaneous Notes * Plan of Care - Manpreet Mckeon, PT - 06/05/2022 2:15 PM CST Treatment Note - Electronically signed by: MANPREET MCKEON, PT June 05, 2022 SUBJECTIVE: Patient reports that her knee and foot still bother her intermittently with the highest pain being 7/10 which is very achy. She reports that her leg from the knee down feels heavy more than painful. She reports that she is going to try to work out today for the first time but keep things very light. Objective TREATMENT: Refer to PT OP Rehab [...] and demonstrated understanding. She was educated on the importance of arch support and on going to [employer] shoe store in [place] to find a good shoe insert for arch supports that are cheap. Decalog information: Access Code: [email or web address] ASSESSMENT: Other Details: Patient demonstrates gradual progress as evidenced by meeting her ankle dorsiflexionAROM goal this date. Patient continues to report increased pain in her foot and knee despite progress made overall toward her goals. Plan to progress patient as appropriate and possibly tape her kneenext visit. Patient would benefit from continued skilled interventions, [...] to bathroom without footwear with less difficulty. -Progressing (12/25), 06/05/2022, SERGIO - Increase left ankle dorsiflexion AROM to 15 degrees or more to be able to squat to access laundrymachines with less difficulty. -Goal met, 06/05/2022SERGIO - Improve score on the Lower Extremity Functional Score to at least 65/80 to demonstrate overall improved function. - Demonstrates independence in therapeutic exercise program specific to relative impairments in order to optimize rehabilitation. -Ongoing, 06/05/2022, SERGIO - Report that she is working out at least 3 times per week to be able to get back to her normal daily workout schedule with greater ease. -Ongoing, 06/05/2022, SERGIO Planned Interventions This patient will likely be seen for the following interventions: - Manual techniques including joint mobilizations, MFR, soft tissue massage, IASTM and others as needed for pain relief, soft tissue extensibility and joint mobility (99099) - Therapeutic exercise program for: motion/mobility, strengthening, flexibility, and functional limitations (13175) - Therapeutic activities for functional activity education/training and in home safety recommendations as appropriate (19179) - Neuro Muscular Re-education for body mechanics education and postural re- education as appropriate(96344) - Patient education regarding posture, ergonomics, body mechanics, HEP progression and exercise performance - Individualized home exercise program - Modalities as needed for pain relief, anti-inflammatory effect and soft tissue extensibility - Gait training (27827) - Trigger point dry needling for pain relief and reducing tension in associated musculature (67502 or 59980) Precautions: none Treatment may be altered based on patient progression and symptoms. The plan of care, as well as the benefits and risks of therapy were reviewed with the patient and the patient consented to treatment. LITY ADMINISTRATOR * Plan of Care - Manpreet Mckeon, PT - 06/05/2022 2:15 PM CST DISCHARGE NOTE: Patient was seen for 5 PT visits from 04/19/2022 to 06/05/2022. Therapy visits included lower extremity flexibility, lower extremity strengthening, kinesiotaping, manual techniques, muscle endurance, patient education, and HEP. Patient did not schedule more appointments and did not come back to PT services. Due to this, her goals were not assessed. At this time, patient will be discharged from PT services. MANPREET MCKEON PT LITY ADMINISTRATOR documented in this encounter Plan of Treatment [...] documented as of this encounter Care Teams Auto Salvage Worker Relationship Specialty Start Date End Date Siva Burgos MD [address] [place] [address] PCP - General Internal Medicine 02/26/20 Ananth Green DPM Podiatry 04/05/22 documented as of this encounter
--- OUTSIDE RECORDS SUMMARY | 2024-06-23 18:21 | XMS_ITS | Encounter Summary ---
Author Organization [employer] Care Team Providers Care Site Monitor Name Role Phone Siva Burgos MD Primary Care Provider [phone] Ananth Green DPM Unavailable Unavailable Encounter Details Date Type Department Care Team (Latest Contact Info) Description 04/19/2022 Travel Social History Tobacco Use Types Packs/Day [...] documented as of this encounter Care Teams Site Monitor Relationship Specialty Start Date End Date Siva Burgos MD [address] [place] [address] PCP - General Internal Medicine 02/26/20 Ananth Green DPM Podiatry 04/05/22 documented as of this encounter
--- OUTSIDE RECORDS SUMMARY | 2024-06-23 18:21 | XMS_ITS | Encounter Summary ---
Author Organization [facility] Address [address] [place] [address] Phone Care Team Providers Care Cover Remover Name Role Phone Siva Burgos MD Primary Care Provider [phone] Reason for Visit * Reason Comments Nasal Congestion Encounter Details Date Type Department Care Team (Late st Contact Info) Description 02/14/2022 3:45 PM CDT Telemedicine [facility] - Internal Medicine - [place] [address] [place] [id number] Siva Burgos MD [address] [place] [address] Upper respiratory tract infection, unspecified type (Primary Dx); Left ankle pain, unspecified chronicity; Chronic diarrhea Social History Tobacco Use Types Packs/Day Years [...] PM CDT documented as of this encounter Progress Notes * Siva Burgos MD - 02/14/2022 3:45 PM CDT PROGRESS NOTE [facility] - INTERNAL [facility]IC[facility] [address] [place] [address] PHONE: [phone] FAX: [phone] 02/14/2022 NAME: Luciana Yost, : 1975, Assessment ASSESSMENT & PLAN: No follow-ups on file. Diagnoses and all orders for this visit: Upper respiratory tract infection, unspecified type Comments: Symptomatic treatment advised. Acetaminophen as needed. May repeat COVID-19 antigen test tomorrow and decide further treatment Arthralgia, unspecified joint Comments: Once URI symptoms resolved will repeat RA factor and LIAM. If it is still positive that and refer [facility] line maintainer Chronic diarrhea Comments: Stable. Continue amitriptyline Follow-up in 2 months, sooner if needed Chief Complaint Patient presents with ??? Nasal Congestion HPI Patient initially had scheduled visit for chronic diarrhea and generalized arthralgia. Since yesterday has sinus congestion, headache and body ache. Did COVID-19 antigen test earlier today which was negative. Denies any shortness of breath. Occasional cough. No abdominal pain nausea vomiting. Diarrhea much better since on amitriptyline. Continue have generalized arthralgia. Has not been able to see a line maintainer due to insurance. ROS Review of systems was negative, except as documented in HPI PHYSICAL EXAM VITALS: Wt Readings from Last 3 Encounters: 01/12/22 125 lb (56.7 kg) 12/16/21 120 lb (54.4 kg) 10/31/21 119 lb (54 kg) Temp Readings from Last 3 Encounters: 01/12/22 98.1 ??F (36.7 ??C) (Temporal) 10/31/21 97.8 ??F (36.6 ??C) (Temporal) 09/19/21 98.1 ??F (36.7 ??C) (Temporal) BP Readings from Last 3 Encounters: 01/12/22 102/64 07/01/22 98/58 10/31/21 122/60 Pulse Readings from Last 3 Encounters: 01/12/22 74 12/16/21 81 10/31/21 72 Physical Exam Telephone visit Patient was assessed via telephone for a duration of 8 minutes. Patient verbally consented for thisservice to be performed and billed.The patient was at home. Past medical, surgical, social and family history has been reviewed and updated as necessary. Medications and allergies has been reviewed and updated. No Known Allergies Current Outpatient Medications: ??? amitriptyline (ELAVIL) 25 MG Tablet ??? meloxicam (MOBIC) 7.5 MG Tablet I educated Luciana regarding diagnoses and plan of care. She verbalizes understanding and will call the office if situation changes. Voice recognition software was utilized in this dictation. Despite proof reading, typographical errors and/or content errors may have occurred. By: Siva Burgos MD 02/14/2022 3:56 PM CDT documented in this encounter Plan of Treatment Not on file documented as of this encounter Visit Diagnoses Diagnosis Upper respiratory tract infection, unspecified type- Primary Left ankle pain, unspecified chronicity Chronic diarrhea Diarrhea documented in this encounter Additional Health Concerns Assessment Noted Time PHQ-9 Depression Total Score: 0 03/02/20 20 1:00 PM CDT documented as of this encounter Care Teams Cover Remover Relationship Specialty Start Date End Date Siva Burgos MD [address] [place] [address] PCP - General Internal Medicine 02/26/20 documented as of this encounter
--- OUTSIDE RECORDS SUMMARY | 2024-06-23 18:21 | XMS_ITS | Encounter Summary ---
Author Organization [facility] Address [address] [place] [address] Phone Care Team Providers Care Access Rep Name Role Phone Siva Burgos MD Primary Care Provider [phone] Ananth Green DPMichelle Unavailable Unavailable Encounter Details Date Type Department Care Team (Latest Contact Info) Description 05/24/2022 2:15 PM TELEGRAPHIC TYPEWRITER OPERATOR Physical Therapy [facility] at [facility] [address], [address] [place] [address] Ananth Green, DPM Manpreet Mckeon, [...] Coronavirus/COVID-19? No / Unsure 05/24/2022 12:18 PM TELEGRAPHIC TYPEWRITER OPERATOR documented as of this encounter Miscellaneous Notes * Plan of Care - Manpreet Mckeon, PT - 05/24/2022 2:15 PM CST Treatment Note - Electronically signed by: MANPREET MCKEON, PT May 24, 2022 SUBJECTIVE: Patient reports that her foot pain is a little better. She reports that she worked without shoes ontoday and was on her knees sitting on her heels to clean at times which may have irritated her painin her heel today as well. Objective TREATMENT: Refer to PT OP Rehab [...] after manual techniques with the cocoa butter. [email or web address] information: Access Code: [email or web address] ASSESSMENT: Other Details: Patient demonstrates gradual progress as evidenced by reporting a decrease in pain after therapy session this date. Patient demonstrated understanding with all exercises performed thisdate. Plan to progress patient as appropriate. Patient [...] relief, soft tissue extensibility and joint mobility (39384) - Therapeutic exercise program for: motion/mobility, strengthening, flexibility, and functional limitations (82290) - Therapeutic activities for functional activity education/training and in home safety recommendations as appropriate (92940) - Neuro Muscular Re-education for body mechanics education and postural re- education as appropriate(06601) - Patient education regarding posture, ergonomics, body mechanics, HEP progression and exercise performance - Individualized home exercise program - Modalities as needed for pain relief, anti-inflammatory effect and soft tissue extensibility - Gait training (75123) - Trigger point dry needling for pain relief and reducing tension in associated musculature (31624 or 96115) Precautions: none Treatment may be altered based on patient progression and symptoms. The plan of care, as well as the benefits and risks of therapy were reviewed with the patient and the patient consented to treatment.. GRAPHIC TYPEWRITER OPERATOR documented in this encounter Plan of [...] documented as of this encounter Care Teams Access Rep Relationship Specialty Start Date End Date Siva Burgos MD [address] [place] [address] PCP - General Internal Medicine 02/26/20 Ananth Green DPM Podiatry 04/05/22 documented as of this encounter
--- OUTSIDE RECORDS SUMMARY | 2024-06-23 18:22 | XMS_ITS | Encounter Summary ---
Author Organization [employer] Care Team Providers Care Credentialing Specialist Name Role Phone Siva Burgos MD Primary Care Provider [phone] Encounter Details Date Type Department Care Team (Latest Contact Info) Description 10/31/2021 Travel Social History Tobacco Use Types Packs/Day Years Used Date Smoking Tobacco: Never Smokeless Tobacco: Never Alcohol Use Standard Drinks/Week Comments Not Currently 0 (1 standard drink = 0.6 oz pur e alcohol) PHQ-2 Answer Date Recorded Total Score - [...] suspected to have Coronavirus/COVID-19? No / Unsure 10/31/2021 2:13 PM CDT documented as of this encounter Plan of Treatment Not on file documented as of this encounter Visit Diagnoses Not on filedocumented in this encounter Additional Health Concerns Assessment Noted Time PHQ-9 Depression Total Score: 0 03/02/20 20 1:00 PM CDT documented as of this encounter Care Teams Credentialing Specialist Relationship Specialty Start Date End Date Siva Burgos MD [address] [place] [address] PCP - General Internal Medicine 02/26/20 documented as of this encounter
--- OUTSIDE RECORDS SUMMARY | 2024-06-23 18:22 | XMS_ITS | Encounter Summary ---
Author Organization [employer] Care Team Providers Care Yeast Supervisor Name Role Phone Siva Burgos MD Primary Care Provider [phone] Encounter Details Date Type Department Care Team (Latest Contact Info) Description 03/02/2020 Travel Social History Tobacco Use Types Packs/Day Years Used Date Smoking Tobacco: Never Smokeless Tobacco: Never PHQ-2 Answer Date Recorded Total Score - Questions 1-9 0 02/16 Comments No Sex and Gender Information Value Date Recorded Sex Assigned at Female 01/05/2024 10:39 PM CDT Legal Sex Female 10:01 PM CDT Gender Identity Female 01/05/2024 10:39 PM CDT Sexual Orientation Not on file COVID-19 Exposure Response Date Recorded In the last month, have you been in contact with someone who was confirmed or suspected to have Coronavirus / COVID-19? No / Unsure 03/02/2020 1:23 PM CDT documented as of this encounter Plan of Treatment Not on file documented as of this encounter Visit Diagnoses Not on filedocumented in this encounter Additional Health Concerns Assessment Noted Time PHQ-9 Depression Total Score: 0 03/02/20 20 1:00 PM CDT documented as of this encounter Care Teams Yeast Supervisor Relationship Specialty Start Date End Date Siva Burgos MD [address] [place] [address] PCP - General Internal Medicine 02/26/20 documented as of this encounter
--- OUTSIDE RECORDS SUMMARY | 2024-06-23 18:22 | XMS_ITS | Encounter Summary ---
Author Organization [employer] Care Team Providers Care Billiard Table Mechanic Name Role Phone Siva Burgos MD Primary Care Provider [phone] Encounter Details Date Type Department Care Team (Latest Contact Info) Description 09/19/2021 Travel Social History Tobacco Use Types Packs/Day Years Used Date Smoking Tobacco: Never Smokeless Tobacco: Never Alcohol Use Standard Drinks/Week Comments Not Currently 0 (1 standard drink = 0.6 oz pur e alcohol) PHQ-2 Answer Date Recorded Total Score - Questions 1-9 0 04/0 09/2021 Sexually Active Control Partners Comments Yes Comments [...] suspected to have Coronavirus/COVID-19? No / Unsure 09/19/2021 2:58 PM CDT documented as of this encounter Plan of Treatment Not on file documented as of this encounter Visit Diagnoses Not on filedocumented in this encounter Additional Health Concerns Assessment Noted Time PHQ-9 Depression Total Score: 0 03/02/20 20 1:00 PM CDT documented as of this encounter Care Teams Billiard Table Mechanic Relationship Specialty Start Date End Date Siva Burgos MD [address] [place] [address] PCP - General Internal Medicine 02/26/20 documented as of this encounter
--- OUTSIDE RECORDS SUMMARY | 2024-06-23 18:22 | XMS_ITS | Encounter Summary ---
Author Organization [facility] Address [address] [place] [address] Phone Care Team Providers Care Pipe Joints Supervisor Name Role Phone Siva Burgos MD Primary Care Provider [phone] Reason for Referral * Consult, Test & Initiate Treatment (Routine) - Closed Specialty Diagnoses / Procedures Referred By Contac t Referred To Contact Diagnoses Arthralgia, unspecified joint Siva Burgos MD [address] [place] [address] Phone: tel: fax: Morris Pascual MD [address] [address] Phone: tel: fax: Referral ID Status Reason Start Date Expiration Date Visits Re quested Visits Authorized [id number] Closed 10/31/2021 1 1 Scheduling Instructions Luciana is being referred to telemarketing manager Dr. Morris Pascual, [place], [place] or other specialist in patient's insurance network for joint pain. Elevated LIAM level See below for Luciana's current medications, allergies and problem list. CURRENT MEDS: Current Outpatient Medications: amitriptyline (ELAVIL) 25 MG Tablet, Take 1 Tablet by mouth nightly., Disp: 30 Tablet, Rfl: 2 Diclofenac Sodium 3 % Gel, 1 Applicator by Transdermal route 3 times daily. To affected joints, Disp: 100 g, Rfl: 2 ibuprofen (MOTRIN) 200 MG Tablet, Take by mouth., Disp: , Rfl: Krill Oil/Astaxanthin 1000 MG Capsule, Take by mouth., Disp: , Rfl: No current facility-administered medications for this visit. ALLERGIES: Not on File PROBLEM LIST: There is no problem list on file for this patient. * Consult, Test & Initiate Treatment (Routine) - Closed Specialty Diagnoses / Procedures Referred By Contact Referred To Contact Gastroenterology Diagnoses Chronic diarrhea Siva Burgos MD [address] [facility] [place] [address] Phone: tel: fax: [facility] Gastroenterology [facility] [place] [address] Phone: tel: fax: Referral ID Status Reason Start Date Expiration Date Visits Re quested Visits Authorized [id number] Closed 10/31/2021 1 1 Scheduling Instructions Luciana is being referred for screening ans chronic diarrhea Please contact patient for scheduling questions or concerns. Reason for Visit * Reason Comments Diarrhea 6 week f/u Encounter Details Date Type Department Care Team (Late st Contact Info) Description 10/31/2021 2:30 PM CDT Office Visit [facility] Internal Medicine [facility] [address] [place] [phone] Siva Burgos MD [address] [facility] [place] [address] Chronic diarrhea (Primary Dx); Arthralgia of both hands; LIAM positive Discharge Disposition: Discharged to home or Selfcare [...] Sign Reading Time Taken Comments Blood Pressure 122/60 10/31/2021 2:26 PM CDT Pulse 72 10/31/2021 2:26 PM CDT Temperature 36.6 ??C (97.8 ??F) 10/31/2021 2:26 PM CD T Respiratory Rate - - Oxygen Saturation 98% 10/31/2021 2:26 PM CDT Inhaled Oxygen Concentration - - Weight 54 kg (119 lb) 10/31/2021 2:26 PM CDT Height 160 cm (5' 3 ) 10/31/2021 2:26 PM CDT Body Mass Index 21.08 10/31/2021 2:26 PM CDT documented in this encounter Progress Notes * Natalia Flor, CATRACHITA - 10/31/2021 2:30 PM CDT Luciana Michelle Yost, 46 y.o., female is here for Diarrhea (6 week f/u) Medication Refills: Patient reports/denies need for medication refills. Orders Pended: no Requested Prescriptions No prescriptions requested or ordered in this encounter Home Medications Medication Sig Start Date End Date Taking? Authorizing Provider amitriptyline (ELAVIL) 25 MG Tablet Take 1 Tablet by mouth nightly. 09/19/21 Yes Siva Burgos MD Ascorbic Acid (Vitamin C) 500 MG Chewable Tablet Take 1 tablet by mouth 2 times daily until finished Patient not taking: Reported on 10/31/2021 05/07/18 Provider, MD Jocelyne Diclofenac Sodium 3 % Gel 1 Applicator by Transdermal route 3 times daily. To affected joints 03/02/20 Yes Siva Burgos MD ibuprofen (MOTRIN) 200 MG Tablet Take by mouth. Yes Provider, MD Jocelyne Krill Oil/Astaxanthin 1000 MG Capsule Take by mouth. Yes Provider, MD Jocelyne There are no discontinued medications. I have reviewed the home medication list with the patient and have reconciled discrepancies. The list is accurate to the best of my knowledge. Smoking Status: Social History Tobacco Use ??? Smoking status: Never Smoker ??? Smokeless tobacco: Never Used Vaping Use ??? Vaping Use: Never used Substance Use Topics ??? Alcohol use: Not Currently ??? Drug use: Never Smoking Cessation Counseling Given: no Health Care Maintenance: Health Maintenance Due Topic Date Due ??? DTaP/Tdap/Td Immunization (1 - Tdap) Never done ??? Pap Smear Never done ??? Colorectal Cancer Screening Never done ??? SARS-COV-2 Immunization (3 - Booster for Pfizer series) 04/03/2021 Orders Pended: yes The following BPA's have been addressed with the patient today: Colonoscopy, Smoking and Depression * Siva Burgos MD - 10/31/2021 2:30 PM CDT PROGRESS NOTE [facility] - INTERNAL MEDICINE [facility] [place] [address] PHONE: [phone] FAX: [phone] 10/31/2021 NAME: Luciana Yost, : 1975, Assessment ASSESSMENT & PLAN: Return in about 3 months (around 01/31/2022) for abd pain. Diagnoses and all orders for this visit: Chronic diarrhea Comments: Improved. Continue amitriptyline at present. Refer again for colonoscopy. Orders: - COLONOSCOPY REFERRAL; Future Arthralgia, unspecified joint Comments: Refer to telemarketing manager for further evaluation Orders: - EXTERNAL RHEUMATOLOGY REFERRAL; Future LIAM positive Follow-up in 3 months, sooner if needed Chief Complaint Patient presents with ??? Diarrhea 6 week f/u HPI Patient is here for follow-up for chronic diarrhea and abdominal pain. Since on amitriptyline symptoms have improved but not gone completely. Could not go for colonoscopy due to insurance issues. Amitriptyline makes her fatigued. Also has increased hand joint pain lately. In the past RA factor was negative but a Na level was increased. Could not see telemarketing manager at that time due to insurance issues ROS Review of systems was negative, except as documented in HPI PHYSICAL EXAM VITALS: Wt Readings from Last 3 Encounters: 10/31/21 119 lb (54 kg) 09/19/21 119 lb (54 kg) 03/02/20 119 lb (54 kg) Temp Readings from Last 3 Encounters: 10/31/21 97.8 ??F (36.6 ??C) (Temporal) 09/19/21 98.1 ??F (36.7 ??C) (Temporal) 03/02/20 98.4 ??F (36.9 ??C) (Temporal) BP Readings from Last 3 Encounters: 10/31/21 122/60 09/19/21 110/64 03/02/20 110/62 Pulse Readings from Last 3 Encounters: 10/31/21 72 09/19/21 84 03/02/20 62 Physical Exam Vitals and nursing note reviewed. [...] and allergies has been reviewed and updated. Not on File Current Outpatient Medications: ??? amitriptyline (ELAVIL) 25 MG Tablet ??? Diclofenac Sodium 3 % Gel ??? ibuprofen (MOTRIN) 200 MG Tablet ??? Krill Oil/Astaxanthin 1000 MG Capsule I educated Luciana regarding diagnoses and plan of care. She verbalizes understanding and will call the office if situation changes. Voice recognition software was utilized in this dictation. Despite proof reading, typographical errors and/or content errors may have occurred. By: Siva Burgos MD 10/31/2021 2:59 PM CDT documented in this encounter Plan of Treatment Scheduled Referrals Name Type Priority Associated Diagnoses Order Schedule COLONOSCOPY REFERRAL Outpatient Referral Routine Chronic diarrhea Expected: 10/31/2021, Expires: 10/31/2022 EXTERNAL RHEUMATOLOGY REFERRAL Outpatient Referral Routine Arthralgia of both hands Expected: 10/30/2022, Expires: 02/15/2023 documented as of this encounter Visit Diagnoses Diagnosis Chronic diarrhea- Primary Diarrhea Arthralgia of both hands LIAM positive Other and unspecified nonspecific immunological findings documented in this encounter Additional Health Concerns Assessment Noted Time PHQ-9 Depression Total Score: 0 03/02/20 20 1:00 PM CDT documented as of this encounter Care Teams Pipe Joints Supervisor Relationship Specialty Start Date End Date Siva Burgos MD [address] [place] [address] PCP - General Internal Medicine 02/26/20 documented as of this encounter
--- OUTSIDE RECORDS SUMMARY | 2024-06-23 18:22 | XMS_ITS | Encounter Summary ---
Author Organization [facility] Address [address] [place] [address] Phone Care Team Providers Care Internal Communications Intern Name Role Phone Siva Burgos MD Primary Care Provider [phone] Reason for Visit * Reason Onset Date Comments Prior Authorization 03/03/2020 Encounter Details Date Type Department Care Team (Late st Contact Info) Description 03/03/2020 Telephone [facility] - Internal Medicine - [place] [address] [place] [phone] Siva Burgos MD [address] [facility] [place] [address] Prior Authorization Social History Tobacco Use Types Packs/Day Years [...] encounter Miscellaneous Notes * Telephone Encounter - Emily Stokes RN - 03/10/2020 4:10 PM CDT Attempted to call patient, no answer at this time. Left message to call back. * Telephone Encounter - Siva Burgos MD - 03/09/2020 8:52 AM CDT PLEASE LET PATIENT KNOW THAT DICLOFENAC 3% IS DENIED. * Telephone Encounter - Shelby Mcknight - 03/05/2020 9:58 AM CDT Medication denied, medication only covered if if you have a diagnosis of actinic keratosis. * Telephone Encounter - Shelby Mckinght - 03/05/2020 9:57 AM CDT Images from the original note were not included. * Telephone Encounter - Shelby Mcknight - 03/04/2020 10:13 AM CDT Submitted prior authorization to insurance. * Telephone Encounter - Siva Burgos MD - 03/03/2020 9:20 PM CDT Yes * Telephone Encounter - Shelby Mcknight - 03/03/2020 2:11 PM CDT Insurance requiring a prior authorization on Diclofenac Sodium 3% gel, ok to proceed? documented in this encounter Plan of Treatment Not on file documented as of this encounter Visit Diagnoses Not on filedocumented in this encounter Additional Health Concerns Assessment Noted Time PHQ-9 Depression Total Score: 0 03/02/20 20 1:00 PM CDT documented as of this encounter Care Teams Internal Communications Intern Relationship Specialty Start Date End Date Siva Burgos MD [address] [place] [address] PCP - General Internal Medicine 02/26/20 documented as of this encounter
--- OUTSIDE RECORDS SUMMARY | 2024-06-23 18:22 | XMS_ITS | Encounter Summary ---
Author Organization [facility] Address [address] [place] [address] Phone Care Team Providers Care Bakery Chef Name Role Phone Siva Burgos MD Primary Care Provider [phone] Reason for Referral * Consult, Test & Initiate Treatment (Less Than 2 Weeks) - Closed Specialty Diagnoses / Procedures Referred By Cubaac t Referred To Contact Diagnoses Arthralgia, unspecified joint Siva Burgos MD [address] [place] [address] Phone: tel: fax: [facility] [address] [place] [address] Phone: tel: fax: Referral ID Status Reason Start Date Expiration Date Visits Re quested Visits Authorized [id number] Closed 03/26/2020 1 1 Scheduling Instructions Luciana is being referred to rheumatology or other specialist in patient's insurance network for elevated LIAM. See below for Luciana's current medications, allergies and problem list. Please contact patient for scheduling questions or concerns. CURRENT MEDS: Current Outpatient Medications: Ascorbic Acid (Vitamin C) 500 MG Chewable Tablet, Take 1 tablet by mouth 2 times daily until finished, Disp: , Rfl: Diclofenac Sodium 3 % Gel, 1 Applicator by Transdermal route 3 times daily. To affected joints, Disp: 100 g, Rfl: 2 dicyclomine (BENTYL) 10 MG Capsule, Take 1 Cap by mouth 2 times daily as needed (abd. pain)., Disp: 60 Cap, Rfl: 1 ibuprofen (MOTRIN) 200 MG Tablet, Take by mouth., Disp: , Rfl: Krill Oil/Astaxanthin 1000 MG Capsule, Take by mouth., Disp: , Rfl: No current facility-administered medications for this visit. ALLERGIES: No Known Allergies PROBLEM LIST: There is no problem list on file for this patient. Encounter Details Date Type Department Care Team (Late st Contact Info) Description 03/26/2020 Telephone [facility] - Internal Medicine - [place] [address] [place] [address] Siva Burgos MD [address] [facility] [place] [address] Social History Tobacco Use Types Packs/Day Years [...] encounter Miscellaneous Notes * Telephone Encounter - Olegario Collazo RN - 03/26/2020 12:53 PM CDT PT called back verbalized understanding. Referral placed per Aubrey MERAZ * Addendum Note - Olegario Collazo RN - 03/26/2020 12:53 PM CDTAddended by: OLEGARIO ARNETT on: 03/26/2020 12:53 PM Modules accepted: Orders * Telephone Encounter - Olegario Collazo RN - 03/26/2020 12:49 PM CDT Called pt lmom * Telephone Encounter - Olegario Collazo RN - 03/26/2020 12:49 PM CDT ----- Message from Siva Burgos MD sent at 03/26/2020 12:28 PM CDT ----- Her lipids are okay. Rheumatoid factor negative that means no rheumatoid arthritis. LIAM level is elevated so she may have lupus. So she needs to see a regional service manager. documented in this encounter Plan of Treatment Scheduled Referrals Name Type Priority Associated Diagnoses Order Schedule EXTERNAL RHEUMATOLOGY REFERRAL Outpatient Referral Less Than 2 weeks Arthralgia, unspecified joint Expected: 03/26/2020, Expires: 06/26/2020 documented as of this encounter Visit Diagnoses Diagnosis Arthralgia, unspecified joint- Primary documented in this encounter Additional Health Concerns Assessment Noted Time PHQ-9 Depression Total Score: 0 03/02/20 20 1:00 PM CDT documented as of this encounter Care Teams Bakery Chef Relationship Specialty Start Date End Date Siva Burgos MD [address] [place] [address] PCP - General Internal Medicine 02/26/20 documented as of this encounter
--- OUTSIDE RECORDS SUMMARY | 2024-06-23 18:22 | XMS_ITS | Encounter Summary ---
Author Organization [facility] Address [address] [place] [address] Phone Care Team Providers Care Stained Glass Installer Name Role Phone Siva Burgos MD Primary Care Provider [phone] Reason for Referral * Consult, Test & Initiate Treatment (Routine) - Closed Specialty Diagnoses / Procedures Referred By Contac t Referred To Contact Diagnoses LIAM positive Siva Burgos MD [address] [place] [address] Phone: tel: fax: [facility] [address] [place] [address] Phone: tel: fax: Referral ID Status Reason Start Date Expiration Date Visits Re quested Visits Authorized [id number] Closed 12/02/2021 1 1 Scheduling Instructions Luciana is being referred to Rheumatology or other specialist in patient's insurance network for positive LIAM. See below for Luciana's current medications, [...] visit. ALLERGIES: Not on File PROBLEM LIST: Patient Active Problem List: LIAM positive Encounter Details Date Type Department Care Team (Late st Contact Info) Description 12/02/2021 Telephone [facility] - Internal Medicine [facility] [address] [place] [phone] Siva Burgos MD [address] [place] [address] Social History Tobacco Use Types Packs/Day Years [...] Telephone Encounter - Emily Stokes RN - 12/02/2021 3:56 PM CDT Received message from Dr Pascual that they do not take patient's insurance. A new referral will be sent to [facility]. documented in this encounter Plan of Treatment Scheduled Referrals Name Type Priority Associated Diagnoses Order Schedule EXTERNAL RHEUMATOLOGY REFERRAL Outpatient Referral Routine LIAM positive Expected: 12/02/2021, Expires: 12/02/2022 documented as of this encounter Visit Diagnoses Diagnosis LIAM positive- Primary Other and unspecified nonspecific immunological findings documented in this encounter Additional Health Concerns Assessment Noted Time PHQ-9 Depression Total Score: 0 03/02/20 1:00 PM CDT documented as of this encounter Care Teams Stained Glass Installer Relationship Specialty Start Date End Date Siva Burgos MD [address] [place] [address] PCP - General Internal Medicine 02/26/20 documented as of this encounter
--- OUTSIDE RECORDS SUMMARY | 2024-06-23 18:22 | XMS_ITS | Encounter Summary ---
Author Organization [facility] Address [address] [place] [address] Phone Care Team Providers Care Help Desk Team Leader Name Role Phone Siva Burgos MD Primary Care Provider [phone] Reason for Referral * Consult, Test & Initiate Treatment (Routine) - Closed Specialty Diagnoses / Procedures Referred By Contac t Referred To Contact Diagnoses LIAM positive Siva Burgos MD [address] [place] [address] Phone: tel: fax: [facility] [address] [place] [id number] Phone: tel: fax: Referral ID Status Reason Start Date Expiration Date Visits Re quested Visits Authorized [id number] Closed 01/12/2022 1 1 Scheduling Instructions Luciana is being referred to Dr. Pascual or other specialist in patient's insurance network for gen. Arthralgia- positive LIAM See below for Luciana's current medications, allergies and problem list. CURRENT MEDS: Current Outpatient Medications: amitriptyline (ELAVIL) 25 MG Tablet, Take 1 Tablet by mouth nightly., Disp: 30 Tablet, Rfl: 2 ibuprofen (MOTRIN) 200 MG Tablet, Take by mouth., Disp: , Rfl: No current facility-administered medications for this visit. ALLERGIES: No Known Allergies PROBLEM LIST: Patient Active Problem List: LIAM positive * Consult, Test & Initiate Treatment (Routine) - Canceled Specialty Diagnoses / Procedures Referred By Travis elizabeth Referred To Contact Podiatry Diagnoses Chronic pain of left ankle Siva Burgos MD [address] [place] [address] Phone: tel: fax: [facility] [place] [address] Phone: tel: fax: Referral ID Status Reason Start Date Expiration Date V isits Requested Visits Authorized [id number] Canceled 01/12/2022 1 1 Scheduling Instructions Luciana is being referred for chr. Left ankle pain Please contact patient for scheduling questions or concerns. Reason for Visit * Reason Comments Ankle Pain Left Encounter Details Date Type Department Care Team (Late st Contact Info) Description 01/12/2022 8:15 AM CDT Office Visit [facility] - Internal Medicine [place] [address] [place] [id number] Siva Burgos MD [address] [place] [address] Chronic pain of left ankle (Primary Dx); LIAM positive Discharge Disposition: Discharged to home [...] AM CDT documented as of this encounter Last Filed Vital Signs Vital Sign Reading Time Taken Comments Blood Pressure 102/64 01/12/2022 8:13 AM CDT Pulse 74 01/12/2022 8:13 AM CDT Temperature 36.7 ??C (98.1 ??F) 01/12/2022 8:13 AM CD T Respiratory Rate 16 01/12/2022 8:13 AM CDT Oxygen Saturation 98% 01/12/2022 8:13 AM CDT Inhaled Oxygen Concentration - - Weight 56.7 kg (125 lb) 01/12/2022 8:13 AM CDT Height 157.5 cm (5' 2 ) 01/12/2022 8:13 AM CDT Body Mass Index 22.86 01/12/2022 8:13 AM CDT documented in this encounter Progress Notes * Jennifer Sanford, ROBERT - 01/12/2022 8:15 AM CDT Luciana Martinez Verenicepascual, 46 y.o., female is here for Ankle Pain (Left ) Medication Refills: Patient reports/denies need for medication refills. Orders Pended: no Requested Prescriptions No prescriptions requested or ordered in this encounter Home Medications Medication Sig Start Date End Date Taking? Authorizing Provider amitriptyline (ELAVIL) 25 MG Tablet Take 1 Tablet by mouth nightly. 09/19/21 Siva Burgos MD ibuprofen (MOTRIN) 200 MG Tablet Take by mouth. Provider, MD Jocelyne There are no discontinued [...] 3 - 3-dose series) Never done ??? DTaP/Tdap/Td Immunization (1 - Tdap) Never done ??? Pap Smear Never done ??? Colorectal Cancer Screening Never done ??? SARS-COV-2 Immunization (3 - Booster for Pfizer series) 04/03/2021 Orders Pended: no The following BPA's have been addressed with the patient today: Pap ccs * Siva Burgos MD - 01/12/2022 8:15 AM CDT PROGRESS NOTE [facility] - INTERNAL MEDICINE [address] [place] [address] PHONE: [phone] FAX: [phone] 01/12/2022 NAME: Luciana Yost, : 1975, Assessment ASSESSMENT & PLAN: Return for keep appt. Diagnoses and all orders for this visit: Chronic pain of left ankle Comments: Referred to court stenographer for further evaluation Orders: - PODIATRY REFERRAL; Future LIAM positive Comments: Referred to [employer] certified internetwork expert Orders: - EXTERNAL RHEUMATOLOGY REFERRAL; Future Other orders - meloxicam (MOBIC) 7.5 MG Tablet; Take 1 Tablet by mouth daily. Her left ankle pain is probably to due to tendinitis. Advised to use cold compresses. Will try meloxicam 7.5 mg daily till seen by court stenographer. Another referral to for [employer] certified internetwork expert placed. Chief Complaint Patient presents with ??? Ankle Pain Left HPI Patient is here with complain of left ankle area pain for past 6 months. No history of trauma. Painis mainly in the Achilles tendon area. Unable to wear high-heeled shoes. Denies any tingling or numbness of left foot. Continue have generalized arthralgia. ROS Review of systems was negative, [...] Readings from Last 3 Encounters: 01/12/22 102/64 12/16/21 98/58 10/31/21 122/60 Pulse Readings from Last 3 Encounters: 01/12/22 74 12/16/21 81 10/31/21 72 Physical Exam Vitals and nursing note reviewed. Constitutional: Appearance: Normal appearance. HENT: Head: Normocephalic. Eyes: Extraocular Movements: Extraocular movements intact. Conjunctiva/sclera: Conjunctivae normal. Pupils: Pupils are equal, round, and reactive to light. Cardiovascular: Rate and Rhythm: Normal rate and regular rhythm. Pulses: Normal pulses. Heart sounds: Normal heart sounds. Pulmonary: Effort: Pulmonary effort is normal. Breath sounds: Normal breath sounds. Musculoskeletal: General: Normal range of motion. Cervical back: Normal range of motion and neck supple. Comments: Left ankle-mild tenderness over Achilles tendon area present. Flexion and extension of ankle joint are painful but not restricted. Minimal swelling of left ankle area present Skin: General: Skin is warm and dry. [...] may have occurred. By: Siva Burgos MD 01/12/2022 8:43 AM CDT documented in this encounter Plan of Treatment Scheduled Referrals Name Type Priority Associated Diagnoses Order Schedule PODIATRY REFERRAL Outpatient Referral Routine Chronic pain of left ankle Expected: 01/11/2023, Expires: 04/13/2023 EXTERNAL RHEUMATOLOGY REFERRAL Outpatient Referral Routine LIAM positive Expected: 01/12/2022, Expires: 01/12/2023 documented as of this encounter Visit Diagnoses Diagnosis Chronic pain of left ankle- Primary LIAM positive Other and unspecified nonspecific immunological findings documented in this encounter Additional Health Concerns Assessment Noted Time PHQ-9 Depression Total Score: 0 03/02/20 20 1:00 PM CDT documented as of this encounter Care Teams Help Desk Team Leader Relationship Specialty Start Date End Date Siva Burgos MD [address] [place] [address] PCP - General Internal Medicine 02/26/20 documented as of this encounter
--- OUTSIDE RECORDS SUMMARY | 2024-06-23 18:22 | XMS_ITS | Encounter Summary ---
Author Organization [facility] Address [address] [place] [address] Phone Care Team Providers Care Consultant In Ergonomics And Safety Name Role Phone Siva Burgos MD Primary Care Provider [phone] Reason for Referral * Other (Routine) - Canceled Specialty Diagnoses / Procedures Referred By Contac t Referred To Contact Gastroenterology Diagnoses Chronic diarrhea Procedures GASTRO PROCEDURE Glendy Curry PAC [address] [place] [address] Phone: tel: fax: Jenniffer Hernandez MD [address] [place] [address] Phone: tel: fax: Referral ID Status Reason Start Date Expiration Date V isits Requested Visits Authorized [id number] Canceled 12/16/2021 1 1 Reason for Visit * Reason Comments New Patient Diarrhea Gas Abdominal Pain * Consult, Test & Initiate Treatment (Routine) - Closed Specialty Diagnoses / Procedures Referred By Contact Referred To Contact Gastroenterology Diagnoses Chronic diarrhea Siva Burgos MD [address] [place] [address] Phone: tel: fax: [facility] - Gastroenterology [facility] [address] [place] [address] Phone: tel: fax: Referral ID Status Reason Start Date Expiration Date Visits Re quested Visits Authorized [id number] Closed 10/31/2021 1 1 Encounter Details Date Type Department Care Team (Latest Contact Info) Description 12/16/2021 2:40 PM CDT Office Visit [facility] - Gastroenterology [facility] [address] [place] [phone] Glendy Curry Trisha, PAC [address] [place] [address] Encounter for preprocedure screening laboratory testing for COVID-19 (Primary Dx); Chronic diarrhea Discharge Disposition: Discharged to home or Selfcare [...] suspected to have Coronavirus/COVID-19? No / Unsure 12/16/2021 12:43 PM CDT documented as of this encounter Last Filed Vital Signs Vital Sign Reading Time Taken Comments Blood Pressure 98/58 12/16/2021 2:25 PM CDT Pulse 81 12/16/2021 2:25 PM CDT Temperature - - Respiratory Rate 20 12/16/2021 2:25 PM CDT Oxygen Saturation 98% 12/16/2021 2:25 PM CDT Inhaled Oxygen Concentration - - Weight 54.4 kg (120 lb) 12/16/2021 2:25 PM CDT Height 157.5 cm (5' 2 ) 12/16/2021 2:25 PM CDT Body Mass Index 21.95 12/16/2021 2:25 PM CDT documented in this encounter Patient Instructions * Patient Instructions* Glendy Curry PAC - 12/16/2021 2:40 PM CDT May use over the counter Imodium 2 tabs after first loose stool then one after each loose stool up to max 8 tabs/ 24 hours or Imodium 1 tab 30-60 minutes before meals and at bedtime Gas X as needed Generic Benefiber begin with 2 tbsp once daily and may increase to 2 x a day to form stools Probiotics daily-highest colony count you can afford to purchase on a routine basis. [place] diet Stop caffeine/ carbonated beverages/ artificial sweeteners/ alcohol/ tobacco and marijuana Increase water at least 64 ounces per day Await stool studies and colonoscopy Stool specimens must be WATERY to be tested. If you were advised to have a procedure and have not heard from our office to schedule within 2 weeks please call. Please keep a detailed food journal- review to look for a pattern foods which may be irritating Avoid all dairy and wheat/ flour based foods for at least 4-6 weeks May resume dairy after 4-6 weeks and if diarrhea/ abdominal pain/ bloating occur try using over thecounter Lactaid as directed- if symptoms persist avoid dairy. After an addition 4-6 weeks, may try adding wheat/ flour based foods- if problems recur, stop and avoid such foods If you were advised to have a procedure and have not heard from our office to schedule within 2 weeks please call. Please arrive at least 15 minutes prior to all appointments for registration/ rooming. Please schedule follow-up in near future to discuss any concerns that were not addressed fully at today's office visit. To continue to provide excellent patient care, you may receive a survey regarding your visit today.To help us serve you better, please complete and return. These surveys are completely anonymous. If you have any concerns/ questions regarding today's visit or experience new or worsening symptoms, please call. documented in this encounter Progress Notes * Glendy Curry Trisha, PAC - 12/16/2021 2:40 PM CDT PROBLEM LIST: Chronic diarrhea Luciana Yost is a . 46 y.o. female who presents with Chief Complaint Patient presents with ??? New Patient ??? Diarrhea ??? Gas ??? Abdominal Pain . DIAGNOSIS, PLAN AND FOLLOW UP: Diagnoses and all orders for this visit: Chronic diarrhea Comments: Improved. Continue amitriptyline at present. Refer again for colonoscopy. Orders: - COLONOSCOPY REFERRAL - GASTRO PROCEDURE; Future - PANCREATIC ELASTASE, FECES, BACA ELASF; Future - CALPROTECTIN, FECAL, BACA CALPR; Future - STOOL, WBC LACTOFERRIN; Future - CULTURE, STOOL; Future Return if symptoms worsen or fail to improve, for review results. S: NPE. Referred by PCP for evaluation diarrhea. Reports has had problems for quite a few years. Was triggered by fast foods would last for a week. About a month ago stool was yellow with seedy appearance. Reports lots of gas. Doesn't always have pain but will have dull or sharp cramping. No directcorrelation with foods currently. Over past 3-4 years will have urgency with watery incontinence ofstool. Abdominal pain may occur regardless of stools. Will have normal stools daily. Normal appetite. Denies early satiety. Denies heartburn/ reflux/ nausea/ vomiting/ constipation/ blood in stools/ toilet or on tissue. Mucus once in a while if stool firmer than normal. Denies black or tarry stools. Denies change to size/ shape/ caliber of stools. Denies weight loss/ malaise/ fatigue. Cholecystectomy 2018. No impact on stools. FM hx GI cancers- neg; pancreatic/ liver cancer- neg; IBD- neg; IBS-neg. ALLERGIES: No Known Allergies MEDICATIONS: Current Outpatient Medications Medication Sig Dispense Refill ??? amitriptyline (ELAVIL) 25 MG Tablet Take 1 Tablet by mouth nightly. 30 Tablet 2 ??? ibuprofen (MOTRIN) 200 MG Tablet Take by mouth. No current facility-administered medications for this visit. PMS/H: Past Medical History Positives Diagnosis Date ??? Screening mammogram, encounter for 08/17/2015 Past Surgical History: Procedure Laterality Date ??? CHOLECYSTECTOMY SOCIAL: Social History Socioeconomic History ??? Marital status: Single Spouse name: Not on file ??? Number of children: Not on file ??? Years of education: Not on file ??? Highest education level: Not on file Occupational History ??? Not on file Tobacco Use ??? Smoking status: Never Smoker ??? Smokeless tobacco: Never Used Vaping Use ??? Vaping Use: Never used Substance and Sexual Activity ??? Alcohol use: Yes Comment: Rare ??? Drug use: Never ??? Sexual activity: Yes Other Topics Concern ??? Not on file Social History Narrative ??? Not on file FAMILY HX: Family History Problem Relation Age of Onset ??? Multiple Sclerosis Mother ??? Prostate Cancer Father VITAL SIGNS: Vitals: 12/16/21 1425 BP: 98/58 Pulse: 81 Resp: 20 SpO2: 98% Weight: 120 lb (54.4 kg) Height: 5' 2 (1.575 m) GENERAL EXAM: GENERAL: Well developed, well nourished, in no acute distress. AAO x3. Cooperative. HEENT: Normocephalic. PERRLA. Nonicteric. NECK: Supple/ non tender/ full ROM LYMPH NODES: No adenopathy. CARDIOVASCULAR: RRR/ S1S2/ No m/g/c/r. PULMONARY: Respirations easy and regular. Breath sounds clear bilaterally. No rhonchi/ rales/ wheezes. GI: Abdomen soft, nondistended. No tenderness, rebound, guarding or masses. No hepatosplenomegaly. Bowel sounds normoactive. MUSCULOSKELETAL: No CVA tenderness. Normal gait and movement of extremities. No tenderness/ swelling/ crepitus. SKIN: General-warm, pink and dry. No rashes/ lesions. PSYCHIATRIC: Euthymic. Affect congruent with mood. Normal thought process. Treatment plan reviewed. Risks and benefits discussed. Expressed understanding. Patient Instructions May use over the counter Imodium 2 tabs after first loose stool then one after each loose stool up to max 8 tabs/ 24 hours or Imodium 1 tab 30-60 minutes before meals and at bedtime Gas X as needed Generic Benefiber begin with 2 tbsp once daily and may increase to 2 x a day to form stools Probiotics daily-highest colony count you can afford to purchase on a routine basis. [place] diet Stop caffeine/ carbonated beverages/ artificial sweeteners/ alcohol/ tobacco and marijuana Increase water at least 64 ounces per day Await stool studies and colonoscopy Stool specimens must be WATERY to be tested. If you were advised to have a procedure and have not heard from our office to schedule within 2 weeks please call. Please keep a detailed food journal- review to look for a pattern foods which may be irritating Avoid all dairy and wheat/ flour based foods for at least 4-6 weeks May resume dairy after 4-6 weeks and if diarrhea/ abdominal pain/ bloating occur try using over thecounter Lactaid as directed- if symptoms persist avoid dairy. After an addition 4-6 weeks, may try adding wheat/ flour based foods- if problems recur, stop and avoid such foods If you were advised to have a procedure and have not heard from our office to schedule within 2 weeks please call. Please arrive at least 15 minutes prior to all appointments for registration/ rooming. Please schedule follow-up in near future to discuss any concerns that were not addressed fully at today's office visit. To continue to provide excellent patient care, you may receive a survey regarding your visit today.To help us serve you better, please complete and return. These surveys are completely anonymous. If you have any concerns/ questions regarding today's visit or experience new or worsening symptoms, please call. documented in this encounter Plan of Treatment Scheduled Orders Name Type Priority Associated Diagnoses Orde r Schedule GASTRO PROCEDURE Procedures Routine Chronic diarrhea Expected: 12/30/2021 (Approximate), Expires: 06/18/2022 PANCREATIC ELASTASE, FECES, BACA ELASF Lab Routine Chronic diarrhea Expected: 06/22/2022, Expires: 12/21/2022 CALPROTECTIN, FECAL, [place] CALPR Lab Routine Chronic diarrhea Expected: 06/22/2022, Expires: 12/21/2022 STOOL, WBC LACTOFERRIN Lab Routine Chronic diarrhea Expected: 06/22/2022, Expires: 12/21/2022 CULTURE, STOOL Microbiology Routine Chronic diarrhea Expected: 06/22/2022, Expires: 12/21/2022 SARS-COV-2 BY MOLECULAR Microbiology Routine Encounter for preprocedure screening laboratory testing for COVID-19 Expected: 12/30/2021, Expires: 06/18/2022 documented as of this encounter Visit Diagnoses Diagnosis Encounter for preprocedure screening laboratory testing for COVID-19- Primary Chronic diarrhea Diarrhea documented in this encounter Additional Health Concerns Assessment Noted Time PHQ-9 Depression Total Score: 0 03/02/20 1:00 PM CDT documented as of this encounter Care Teams Consultant In Ergonomics And Safety Relationship Specialty Start Date End Date Siva Burgos MD [address] [place] [address] PCP - General Internal Medicine 02/26/20 documented as of this encounter
--- OUTSIDE RECORDS SUMMARY | 2024-06-23 18:22 | XMS_ITS | Encounter Summary ---
Author Organization [facility] Address [address] [place] [address] Phone Care Team Providers Care Pipe Fitter Ammonia Name Role Phone Siva Burgos MD Primary Care Provider [phone] Reason for Referral * Consult, Test & Initiate Treatment (Routine) - Canceled Specialty Diagnoses / Procedures Referred By Contact Referred To Contact Gastroenterology Diagnoses Chronic diarrhea Siva Burgos MD [address] [place] [address] Phone: tel: fax: [facility] [place] [address] Phone: tel: fax: Referral ID Status Reason Start Date Expiration Date V isits Requested Visits Authorized [id number] Canceled 09/19/2021 1 1 Scheduling Instructions Luciana is being referred for colonoscopy for recurrent diarrhea Please contact patient for scheduling questions or concerns. Reason for Visit * Reason Comments New Patient Re-est. Diarrhea And lots of gas Encounter Details Date Type Department Care Team ([facility] Contact Info) Description 09/19/2021 3:15 PM CDT Office Visit [facility] Medical [facility] - Internal Medicine [facility] [address] [place] [address] Siva Burgos MD [address] [place] [address] Chronic diarrhea (Primary Dx) Discharge Disposition: Discharged to home or Selfcare Social History Tobacco Use Types Packs/Day Years Used Date Smoking Tobacco: Never Smokeless Tobacco: Never Alcohol Use Standard Drinks/Week Comments Not Currently 0 (1 standard drink = 0.6 oz pur e alcohol) PHQ-2 Answer Date Recorded Total Score - Questions 1-9 0 09/2021 Sexually Active Control Partners Comments Yes [...] Reading Time Taken Comments Blood Pressure 110/64 09/19/2021 3:08 PM CDT Pulse 84 09/19/2021 3:08 PM CDT Temperature 36.7 ??C (98.1 ??F) 09/19/2021 3:08 PM CD T Respiratory Rate - - Oxygen Saturation 98% 09/19/2021 3:08 PM CDT Inhaled Oxygen Concentration - - Weight 54 kg (119 lb) 09/19/2021 3:08 PM CDT Height 160 cm (5' 3 ) 09/19/2021 3:08 PM CDT Body Mass Index 21.08 09/19/2021 3:08 PM CDT documented in this encounter Progress Notes * Natalia Flor CMA - 09/19/2021 3:15 PM CDT Luciana Yost, 46 y.o., female is here for New Patient (Re-est.) and Diarrhea (And lots of gas) Medication Refills: Patient reports/denies need for medication refills. Orders Pended: no Requested Prescriptions No prescriptions requested or ordered in this encounter Home Medications Medication Sig Start Date End Date Taking? Authorizing Provider Ascorbic Acid (Vitamin C) 500 MG Chewable Tablet Take 1 tablet by mouth 2 times daily until finished 05/07/18 Yes ProviderJocelyne MD Diclofenac Sodium 3 % Gel 1 Applicator by Transdermal route 3 times daily. To affected joints 03/02/20 Yes Siva Burgos MD dicyclomine (BENTYL) 10 MG Capsule Take 1 Cap by mouth 2 times daily as needed (abd. pain). Patient not taking: Reported on 09/19/2021 03/02/20 Siva Burgos MD ibuprofen (MOTRIN) 200 MG Tablet Take by mouth. Yes ProviderJocelyne MD Krill Oil/Astaxanthin 1000 MG Capsule Take by [...] done ??? Pap Smear Never done ??? SARS-COV-2 Immunization (3 - Booster for Pfizer series) 04/03/2021 Orders Pended: no The following BPA's have been addressed with the patient today: Smoking * Siva Burgos MD - 09/19/2021 3:15 PM CDT PROGRESS NOTE [facility] - [place] [address] PHONE: [phone] FAX: [phone] 09/19/2021 NAME: Luciana Yost, : 1975, Assessment ASSESSMENT & PLAN: Return in about 6 weeks (around 10/31/2021) for diarrhea. Diagnoses and all orders for this visit: Chronic diarrhea Comments: Probably due to IBS. Will refer for colonoscopy. Meanwhile start amitriptyline 25 mg at bedtime andFiberCon tablet daily Orders: - COLONOSCOPY REFERRAL; Future Other orders - amitriptyline (ELAVIL) 25 MG Tablet; Take 1 Tablet by mouth nightly. Follow-up in 6 weeks, sooner if needed Chief Complaint Patient presents with ??? New Patient Re-est. ??? Diarrhea And lots of gas HPI Patient is here with complain of frequent episodes of loose bowel movement. Mostly runny. Urgency present. No associated nausea vomiting. No abdominal cramps. Could not pinpoint any relation with particular food. Generalized arthralgia stable. Using topical diclofenac gel p.r.n. ROS Review of systems was negative, except as documented in HPI PHYSICAL EXAM VITALS: Wt Readings from Last 3 Encounters: 09/19/21 119 lb (54 kg) 03/02/20 119 lb (54 kg) Temp Readings from Last 3 Encounters: 09/19/21 98.1 ??F (36.7 ??C) (Temporal) 03/02/20 98.4 ??F (36.9 ??C) (Temporal) BP Readings from Last 3 Encounters: 09/19/21 110/64 03/02/20 110/62 Pulse Readings from Last 3 Encounters: 09/19/21 84 03/02/20 62 Physical Exam Vitals [...] mass. Tenderness: There is no abdominal tenderness. Hernia: No hernia is present. Musculoskeletal: General: Normal range of motion. Cervical [...] ??? amitriptyline (ELAVIL) 25 MG Tablet ??? Ascorbic Acid (Vitamin C) 500 MG Chewable Tablet ??? Diclofenac Sodium 3 % Gel ??? ibuprofen (MOTRIN) 200 MG Tablet ??? Krill Oil/Astaxanthin 1000 MG Capsule I educated Luciana regarding diagnoses and plan of care. She verbalizes understanding and will call the office if situation changes. Voice recognition software was utilized in this dictation. Despite proof reading, typographical errors and/or content errors may have occurred. By: Siva Burgos MD 09/19/2021 3:43 PM CDT documented in this encounter Plan of Treatment Scheduled Referrals Name Type Priority Associated Diagnoses Order Schedule COLONOSCOPY REFERRAL Outpatient Referral Routine Chronic diarrhea Expected: 09/18/2022, Expires: 01/15/2023 documented as of this encounter Visit Diagnoses Diagnosis Chronic diarrhea- Primary Diarrhea documented in this encounter Additional Health Concerns Assessment Noted Time PHQ-9 Depression Total Score: 0 03/02/20 20 1:00 PM CDT documented as of this encounter Care Teams Pipe Fitter Ammonia Relationship Specialty Start Date End Date Siva Burgos MD [address] [place] [address] PCP - General Internal Medicine 02/26/20 documented as of this encounter
--- OUTSIDE RECORDS SUMMARY | 2024-06-23 18:22 | XMS_ITS | Encounter Summary ---
Author Organization [facility] Address [address] [place] [address] Phone Care Team Providers Care Sanitary Aide Name Role Phone Siva Burgos MD Primary Care Provider Reason for Visit * Reason Comments Abdominal Pain diarrhea Joint Pain dot hands Encounter Details Date Type Department Care Team (Late st Contact Info) Description 03/02/2020 1:30 PM CDT Office Visit [facility] - Internal Medicine - [place] [address] [place] [id number] Siva Burgos MD [address] [place] [address] Abdominal pain, generalized (Primary Dx); Arthralgia, unspecified joint; Health maintenance examination (Adult) Discharge Disposition: Discharged to home or Selfcare [...] Sign Reading Time Taken Comments Blood Pressure 110/62 03/02/2020 1:36 PM CDT Pulse 62 03/02/2020 1:36 PM CDT Temperature 36.9 ??C (98.4 ??F) 03/02/2020 1:36 PM CD T Respiratory Rate - - Oxygen Saturation - - Inhaled Oxygen Concentration - - Weight 54 kg (119 lb) 03/02/2020 1:36 PM CDT Height 160 cm (5' 3 ) 03/02/2020 1:36 PM CDT Body Mass Index 21.08 03/02/2020 1:36 PM CDT documented in this encounter Patient Instructions * Patient Instructions* Siva Burgos MD - 03/02/2020 1:30 PM CDT diabet documented in this encounter Progress Notes * Natalia Flor CMA - 03/02/2020 1:30 PM CDT Luciana Yost, 44 y.o., female is here for Abdominal Pain (diarrhea) and Joint Pain (odt hands) Medication Refills: Patient reports/denies need for medication refills. Orders Pended: no Requested Prescriptions No prescriptions requested or ordered in this encounter Home Medications Medication Sig Start Date End Date Taking? Authorizing Provider Ascorbic Acid (Vitamin C) 500 MG Chewable Tablet Take 1 tablet by mouth 2 times daily until finished 05/07/18 Yes ProviderJocelyne MD ibuprofen (MOTRIN) 200 MG Tablet Take by mouth. Yes ProviderJocelyne MD Krill Oil/Astaxanthin 1000 MG Capsule Take by mouth. Yes ProviderJocelyne MD There are no discontinued medications. I have reviewed the home medication list with the patient and have reconciled discrepancies. The list is accurate to the best of my knowledge. Smoking Status: Social History Tobacco Use ??? Smoking status: Never Smoker ??? Smokeless tobacco: Never Used Substance Use Topics ??? Alcohol use: Not on file ??? Drug use: Not on file Smoking Cessation Counseling Given: no Health Care Maintenance: Health Maintenance Due Topic Date Due ??? DTaP/Tdap/Td Immunization (1 - Tdap) 1981 ??? Pap Smear 08/17/1995 ??? Influenza Immunization (1) 02/17/2020 Orders Pended: no The following BPA's have been addressed with the patient today: Flu, Depression and Fall Risk * Siva Burgos MD - 03/02/2020 1:30 PM CDT PROGRESS NOTE [facility] - [facility] [address] [place] [address] 03/02/2020 Luciana Yost 1975 Chief Complaint Patient presents with ??? Abdominal Pain diarrhea ??? Joint Pain dot hands Patient is here with complain of off and on generalized abdominal cramps along with diarrhea. No associated nausea vomiting. History of cholecystectomy about 2 years ago. Also complains of burning pain in the hand joints. Has tried diclofenac gel 1% without any help. Stiffness of hand joints in the morning present. ROS Review of Systems Constitutional: Negative. HENT: Negative. Eyes: Negative. Respiratory: Negative. Cardiovascular: Negative. Gastrointestinal: Positive for abdominal pain and diarrhea. Endocrine: Negative. Genitourinary: Negative. Musculoskeletal: Positive for arthralgias. Skin: Negative. Allergic/Immunologic: Negative. Neurological: Negative. Hematological: Negative. Psychiatric/Behavioral: Negative. PHYSICAL EXAM Physical Exam Vitals signs and nursing note reviewed. Constitutional: Appearance: Normal appearance. HENT: Head: Normocephalic. Mouth/Throat: Mouth: Mucous membranes are moist. Pharynx: Oropharynx is clear. Eyes: Extraocular Movements: Extraocular movements intact. Conjunctiva/sclera: Conjunctivae normal. Pupils: Pupils are equal, round, and reactive to light. Neck: Musculoskeletal: Normal range of motion and neck supple. Cardiovascular: Rate and Rhythm: Normal rate and regular rhythm. Pulses: Normal pulses. Heart sounds: Normal heart sounds. Pulmonary: Effort: Pulmonary effort is normal. Breath sounds: Normal breath sounds. Abdominal: General: Abdomen is flat. Bowel sounds are normal. Palpations: Abdomen is soft. Musculoskeletal: Normal range of motion. Comments: Mild swelling and tenderness off MCP joints present. Wrist joints movements normal. No swelling of wrists joint. Skin: General: Skin is warm and dry. Neurological: General: No focal deficit present. Mental Status: She is alert and oriented to person, place, and time. Psychiatric: Mood and Affect: Mood normal. Behavior: Behavior normal. Past medical, surgical, social and family history has been reviewed and updated as necessary. Medications and allergies has been reviewed and updated. No Known Allergies There are no active problems to display for this patient. Current Outpatient Medications: ??? Ascorbic Acid (Vitamin C) 500 MG Chewable Tablet ??? Diclofenac Sodium 3 % Gel ??? dicyclomine (BENTYL) 10 MG Capsule ??? ibuprofen (MOTRIN) 200 MG Tablet ??? Krill Oil/Astaxanthin 1000 MG Capsule Assessment ASSESSMENT & PLAN: Return in about 3 months (around 06/01/2020). Diagnoses and all orders for this visit: Abdominal pain, generalized Arthralgia, unspecified joint - CMP (COMPREHENSIVE METABOLIC PANEL); Future - RHEUMATOID FACTOR (RFQT) QUANT; Future - LIAM SCREEN MULTIPLEX W/REFLEX BURAK; Future Health maintenance examination (Adult) - LIPID PANEL; Future Other orders - Ascorbic Acid (Vitamin C) 500 MG Chewable Tablet; Take 1 tablet by mouth 2 times daily until finished - ibuprofen (MOTRIN) 200 MG Tablet; Take by mouth. - Krill Oil/Astaxanthin 1000 MG Capsule; Take by mouth. - dicyclomine (BENTYL) 10 MG Capsule; Take 1 Cap by mouth 2 times daily as needed (abd. pain). - Diclofenac Sodium 3 % Gel; 1 Applicator by Transdermal route 3 times daily. To affected joints Abdominal pain with diarrhea of probably secondary to IBS D. will try Metamucil and FiberCon. Also prescribed dicyclomine to take as needed. Will try diclofenac 3% gel for her hand joint pain. And also check higher a factor and LIAM. I educated Luciana regarding diagnoses and plan of care. She verbalizes understanding and will call the office if situation changes. By: Siva Burgos MD 03/02/2020 2:01 PM CDT documented in this encounter Plan of Treatment Scheduled Orders Name Type Priority Associated Diagnoses Orde r Schedule CMP (COMPREHENSIVE METABOLIC PANEL) Lab Routine Arthralgia, unspecified joint Expected: 08/30/2020, Expires: 08/30/2021 documented as of this encounter Results * LIAM SCREEN MULTIPLEX W/REFLEX BURAK (03/05/2020) Blood Siva Burgos MD IMMUNOLOGY ORDERABLES Final Result * RHEUMATOID FACTOR (RFQT) QUANT (03/05/2020) Blood Siva Burgos MD CHEMISTRY ORDERABLES Final Result * LIPID PANEL (03/05/2020) TOTAL CHOLESTEROL 175 HDL 81 mg/dL LDL 77 0 - 130 mg/dL Blood 03/05/2020 Result [facility] Siva Burgos MD CHEMISTRY ORDERABLES Final Result documented in this encounter Visit Diagnoses Diagnosis Abdominal pain, generalized- Primary Arthralgia, unspecified joint Health maintenance examination (Adult) Unspecified general medical examination documented in this encounter Additional Health Concerns Assessment Noted Time PHQ-9 Depression Total Score: 0 03/02/20 20 1:00 PM CDT documented as of this encounter Care Teams Sanitary Aide Relationship Specialty Start Date End Date Siva Burgos MD [address] [place] [address] PCP - General Internal Medicine 02/26/20 documented as of this encounter
--- OUTSIDE RECORDS SUMMARY | 2024-06-23 18:22 | XMS_ITS | Encounter Summary ---
Author Organization [facility] Care Team Providers Care Outbound Sales Representative Name Role Phone Siva Burgos MD Primary Care Provider [phone]- [phone] Encounter Details Date Type Department Care Team (Latest Contact Info) Description 12/16/2021 Travel Social History Tobacco Use Types Packs/Day [...] documented as of this encounter Care Teams Outbound Sales Representative Relationship Specialty Start Date End Date Siva Burgos MD [address] [place] [address] PCP - General Internal Medicine 02/26/20 documented as of this encounter
--- OUTSIDE RECORDS SUMMARY | 2024-06-23 18:24 | XMS_ITS | Encounter Summary ---
Author Organization [facility] Healthcare Address [address] [place] [address] Care Team Providers Care Research Engineer Name Role Phone Siva Burgos MD Primary Care Provider [phone] Cori Arreola MD Unavailable [phone] Reason for Visit * Reason Comments Dizziness Dizziness and pressu re in ears. Room spins when she lies down. Onset two days ago. No OTC. Encounter Details Date Type Department Care Team (Late st Contact Info) Description 11/02/2023 9:15 AM CDT Office Visit [facility] Group [facility] [place] [address] [place] [phone] Emerald Kumari, SWEEPER BRUSH MAKER MACHINE [address] [place] [address] Dizziness (Primary Dx) Social History Tobacco Use Types Packs/Day Years Used Date Smoking Tobacco: Never Smokeless Tobacco: Never Tobacco Cessation:Counseling Given: Not Answered Alcohol Use Standard Drinks/Week Comments Yes 0 (1 standard drink = 0.6 oz pur e alcohol) AUDIT-C Answer Date Recorded Q1: How often do you have a drink containing alc ohol? 2-4 times a month 02/06/2023 Q2: How many drinks containi ng alcohol do you have on a typical day when you are drinking? 1 or 2 02/06/2023 Q3: How often do you have si x or more drinks on one occasion? Weekly 02/06/2023 Personal Safety Answer Date Recorded Have you ever been in or are you currently in a harmful physical or emotional relationship or is someone making you feel afraid or unsafe? 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 Gender Identity Not on file Sexual Orientation Not on file documented as of this encounter Last Filed Vital Signs Vital Sign Reading Time Taken Comments Blood Pressure 98/72 11/02/2023 9:05 AM CDT Pulse 68 11/02/2023 8:58 AM CDT Temperature 36.5 ??C (97.7 ??F) 11/02/2023 8:58 AM CD T Respiratory Rate 16 11/02/2023 8:58 AM CDT Oxygen Saturation 98% 11/02/2023 8:58 AM CDT Inhaled Oxygen Concentration - - Weight 58.9 kg (129 lb 12.8 oz) 11/02/2023 8:58 AM CDT Height 160 cm (5' 3 ) 11/02/2023 8:58 AM CDT Body Mass Index 22.99 11/02/2023 8:58 AM CDT documented in this encounter Progress Notes * Emerald Kumari, SWEEPER BRUSH MAKER MACHINE - 11/02/2023 9:15 AM CDT Images from the original note were not included. Subjective/Objective Patient ID: Luciana Yost is a 48 y.o. female. Chief Complaint Dizziness (Dizziness and pressure in ears. Room spins when she lies down. Onset two days ago. No OTC. ) Patient presents to [facility] complaining of dizziness that began 2 days ago. Started 2 nights ago when she turned over in bed. She states everything looked like it was a spinning poarch in front of her. Since then she has been very careful about her movements but does notice dizziness if shelies down too fast or turns her head too fast. No dizziness on standing however she has moving veryslowly. While she is sitting or walking she just feels off . She has not had this happen before. No fever. She states she probably does not drink enough fluids however she is drinking same amount she normally drinks. She denies decreased urination. She denies any other symptoms except pressure in her ears. She denies nasal congestion, cough, allergy symptoms. She had some mild nausea yesterday during a dizzy episode but has not had since. She denies vomiting. Patient states she tried to call her PCP to be seen for this however the office is closed today. Dizziness Review of Systems Neurological: Positive for dizziness. All systems reviewed and are negative or non contributory for this patient's presentation today other than as stated in the HPI. Physical Exam Vitals and nursing note reviewed. Constitutional: General: She is not in acute distress. Appearance: She is not ill-appearing or toxic-appearing. HENT: Head: Normocephalic. Right Ear: Ear canal and external ear normal. A middle ear effusion is present. Left Ear: Ear canal and external ear normal. A middle ear effusion is present. Ears: Comments: Mild bilateral serous otitis Nose: Mucosal edema present. Mouth/Throat: Pharynx: Oropharynx is clear. Eyes: Extraocular Movements: Extraocular movements intact. Right eye: Normal extraocular motion and no nystagmus. Left eye: Normal extraocular motion and no nystagmus. Conjunctiva/sclera: Conjunctivae normal. Pupils: Pupils are equal, round, and reactive to light. Cardiovascular: Rate and Rhythm: Normal rate and regular rhythm. Heart sounds: Normal heart sounds. Pulmonary: Effort: Pulmonary effort is normal. No respiratory distress. Breath sounds: Normal breath sounds. No wheezing or rales. Musculoskeletal: Cervical back: No rigidity. Skin: General: Skin is warm and dry. Neurological: General: No focal deficit present. Mental Status: She is alert and oriented to person, place, and time. Psychiatric: Mood and Affect: Mood normal. Behavior: Behavior normal. Thought Content: Thought content normal. Vitals: 11/02/23 0858 11/02/23 0905 BP: (!) 84/48 98/72 Pulse: 68 Resp: 16 Temp: 36.5 ??C (97.7 ??F) TempSrc: Temporal SpO2: 98% Weight: 58.9 kg (129 lb 12.8 oz) Height: 160 cm (5' 3 ) Assessment/Plan Rob maneuver inconclusive. Patient initially dizzy when she lied down however after sitting back up then being lied down rapidly for Rob maneuver dizziness was gone. No nystagmus observed either time patient laid down. Patient advised she will need to go to ER for further evaluation of dizziness. She states she will go to [facility]. Diagnoses and all orders for this visit: Dizziness (Primary) No results found for this or any previous visit (from the past 24 hour(s)). Patient Education: Disposition Go to ER for further evaluation Emerald Kumari NP Cosigned by Tyrone Spring MD at 12/13/2023 9:40 AM CDT documented in this encounter Plan of Treatment Not on file documented as of this encounter Visit Diagnoses Diagnosis Dizziness- Primary Dizziness and giddiness documented in this encounter Care Teams Research Engineer Relationship Specialty Start Date End Date Siva Burgos MD [address] [place] [address] PCP - General 05/15/16 Cori Arreola MD [address] [address] Referring Physician Gynecology 04/10/18 documented as of this encounter
--- OUTSIDE RECORDS SUMMARY | 2024-06-23 18:24 | XMS_ITS | Encounter Summary ---
Author Organization [facility] Healthcare Address [address] [place] [address] Care Team Providers Care Mold Yard Worker Name Role Phone Siva Burgos MD Primary Care Provider [phone]- [phone] Cori Arreola MD Unavailable Reason for Visit * Reason Comments OT Initial Eval * Consultation (Routine) - Pending Review Specialty Diagnoses / Procedures Referred By Contact Referred To Contact Occupational Therapy Diagnoses Unilateral primary osteoarthritis of first carpometacarpal joint, right hand Hipolito Cat MD Phone: tel:[phone] fax:[phone] [facility] Occupational Therapy [address] [place] [address] Phone: tel: fax: Referral ID Status Reason Start Date Expiration Date Visits Requested Visits Authorized [id number] Pending Review Evaluate and Treat 04/16/2025 24 13 Encounter Details Date Type Department Care Team (Late st Contact Info) Description 04/10/2024 1:00 PM CDT Therapy [facility] Occupational Therapy [address] [place] [id number] Laly Núñez OT [address] [place] [address] Unilateral primary osteoarthritis of first carpometacarpal joint, right hand Social History Tobacco Use Types Packs/Day Years [...] on file 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 female Referring Provider: Hipolito Cat MD [address] [address] Unilateral primary osteoarthritis of first carpometacarpal joint, right hand Subjective: Patient reports: Patient arrives to therapy with a bandage over her right thumb CMC. She states shejust came from the MD office and they removed her post op dressing. She is here for a custom fabricated orthosis. She was told to not pinch with her right hand. Order: OT Evaluate and Treat Days post op: 2 weeks, 1 day post op Patient's primary goal: To regain motion and strength of right hand for functional activity and work. Diagnosis: Right thumb CMC arthritis Date of onset: Approximately 5 years and progressively became worse over the last year and half. Cause of injury: Arthritis Date of surgery: 03/26/24 Surgery details: First carpometacarpal joint arthroplasty with ligament reconstruction using free tendon graft (right) Next MD Appointment: 05/08/24 Past Medical History: Diagnosis Date Arthritis Patient has no known allergies. 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 Patient enjoys watching TV/movies and spending time with children. She enjoyed sewing but has not been able to due to pain with pinching. Work status: OFF Do you feel safe in your home environment?: [x] Yes [] No Hand dominance [x] Right [] Left [] Ambidextrous Involved side [x] Right [] Left [] Bilateral Numbness [x] Yes [] No Location: Right thumb Tingling [] Yes [x] No Location: N/A Pain at best: 0/10 Pain at worst: 3/10 Location: Right thumb CMC/Wrist Are you taking pain medication? [] Yes [x] No Medication using: N/A ADL Status: [x] Independent [] Requires assistance [] Dependent Details: IADL Status: [] Independent [x] Requires assistance [] Depedendent Details: Son is helping with cooking, she has been doing laundry 1 handed. Leisure activities: [x] Able to participate in leisure activities [] Unable to participate in leisure activities Details: Sleep: [x] Reports adequate sleep to support daily routines [] Reports inadequate sleep to support daily routines Details: Objective: 04/10/2024 QUICK DASH Open a tight or new jar 5 - Unable Do heavy typing element machine operator (e.g., wash gee, floors) 5 - Unable Carry a shopping bag or briefcase 1 - No Difficulty Wash your back 2 - Mild Difficulty Use a knife to cut food 5 - Unable Recreational activities in which you take some force or impact through your arm, shoulder, or hand (e.g., golf, hammering, tennis, etc.) 5 - Unable During the past week, to what extent has your arm, shoulder, or hand problem interfered with your normal social activities with family, friends, neighbours or groups? 1 - Not at All During the past week, were you limited in your work or other regular daily activities as a result of your arm, shoulder or hand problem? 4 - Very Limited Arm, shoulder or hand pain 2 - Mild Tingling (pins and needles) in your arm, shoulder or hand 1 - None During the past week, how much difficulty have you had sleeping because of the pain in your arm, shoulder or hand? 2 - Mild Difficulty Quick DASH Disability/Symptom Score: 50 Wound/appearance: Incision is healing well with no signs of infection Treatment Provided: Therapist fabricated a forearm based thumb spica orthosis Educated patient on orthosis wear/care Educated patient on anatomy/procedure/skin care Assessment: Pt demonstrated independence/verbalized understanding in: [] HEP [x] Don/doff orthosis [x] All tx listed above Assessment details: Patient presents with decreased ROM of right wrist and thumb. She has mild swelling of right thumb/hand. She reports no pain this date. Her incision is healing well with no signs of infection. She has a few remaining sutures that will need to be removed. Orthosis appears to fit well, patient verbalized a comfortable orthosis fit. She verbalized understanding of orthosis wear/care and restrictions. She would benefit from continued OT services. Impairment list: [x] Coordination [x] Edema [x] Endurance/activity tolerance [x] Fine motor use [] Flexibility [] Gross motor use [] Muscle tone [x] Pain [x] Range of motion [x] Scar tissue [x] Sensation [] Sensory/motor [] Skin integrity [x] Strength Functional Limitations: [x] ADLs [] Community activities [] Communication [] Education [x] Home management [x] Leisure activities [] Play [] Safety [] Sports [x] Work Environmental Barriers: None [] Home [] Work [] Community Barriers to Therapy: None Intervention Approach: [] Health promotion [x] Remediation [] Wellness [] Adaptation [] Prevention Prognosis: [] Excellent [x] Good [] Fair [] Poor ST) 04/10/24 Patient to don/doff orthosis independently by end of session today (04/10/24) 2) 04/10/24 Patient to verbalize a comfortable orthosis fit by 1 week (04/17/24) LT) 04/10/24 Patient to increase Quick DASH score to 10% or better by 12 weeks (07/03/24) Plan: Frequency/Duration: 24 visits (04/10/24 - 07/03/24) Plan Details: Patient to return to therapy to work on ROM, scar management, edema management, modalities, orthosis fabrication/modification, functional activities, and strengthening. Start time: 1:00 PM End time: 2:00 PM Laly Núñez OTR/L If the patient does not return to therapy this will serve as a discharge summary. documented in this encounter Plan of Treatment Not on file documented as of this encounter Visit Diagnoses Diagnosis Unilateral primary osteoarthritis of first carpometacarpal joint, right hand documented in this encounter Orders Outpatient Referral Count Last Ordered Date Fir st Ordered Date AMB REFERRAL ORDER TO OCCUPATIONAL THERAPY 1 04/10/2024 documented in this encounter Additional Health Concerns Infection Onset Date Last Indicated Resolved Time COVID: Recovered Comment:Added based on recent COVID infection. 01/13/2024 02/05/2024 04/12/2024 3:05 AM C DT documented as of this encounter Care Teams Mold Yard Worker Relationship Specialty Start Date End Date Siva Burgos MD [address] [place] [address] PCP - General 05/15/16 Cori Arreola MD [address] [address] Referring Physician Gynecology 04/10/18 documented as of this encounter
--- OUTSIDE RECORDS SUMMARY | 2024-06-23 18:24 | XMS_ITS | Encounter Summary ---
Author Organization [facility] Healthcare Address [address] [place] [address] Care Team Providers Care Development Chemist Name Role Phone Siva Burgos MD Primary Care Provider [phone]- [phone] Cori Arreola MD Unavailable [phone] Reason for Visit * Reason Comments OT Treatment * Consultation (Routine) - Pending Review Specialty Diagnoses / Procedures Referred By Contact Referred To Contact Occupational Therapy Diagnoses Unilateral primary osteoarthritis of first carpometacarpal joint, right hand Hipolito Cat MD Phone: tel:[phone] fax:[phone] [facility] Occupational Therapy [address] [place] [address] Phone: tel: fax: Referral ID Status Reason Start Date Expiration Date Visits Requested Visits Authorized [id number] Pending Review Evaluate and Treat 4 04/16/2025 24 13 Encounter Details Date Type Department Care Team (Late st Contact Info) Description 05/23/2024 10:00 AM SANDBLASTING SUPERVISOR Therapy [facility] Occupational Therapy [address] [place] [address] Radha Hewitt OT Unilateral primary osteoarthritis of first carpometacarpal joint, right hand (Primary Dx) Social History Tobacco Use Types [...] on file Legal Sex Female 9:53 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 Treatment Provided: MHP x 10 min to right wrist and hand pre tx Scar massage x 3 min Alphabet ball x's 1 set Small peg activity (making an O ) Silver ball manipulation (3 minutes one direction, 3 minutes opposite direction) Ball exercises for WE/WF and RD/UD x's 3 minutes each Small wrist yard pipe grader with no added weight x's 10 reps Wrist maze x 3 min Assessment: Patient presents with decreased ROM of right thumb and wrist. Her incision is well healed. She has no pain at rest. She tolerated all therapy activities this date. She verbalized understanding of HEP. She would benefit from continued OT services. ST) 04/10/24 Patient to don/doff orthosis independently by end of session today (04/10/24) 2) 04/10/24 Patient to verbalize a comfortable orthosis fit by 1 week (04/17/24) 3) 04/17/24 Patient to increase right WE to 55 degrees by 3 weeks (05/08/24) 4) 04/17/24 Patient to increase right WF to 50 degrees by 3 weeks (05/08/24) 5) 04/17/24 Patient to increase right RD to 20 degrees by 3 weeks (05/08/24) 6) 04/17/24 Patient to increase right UD to 20 degrees by 3 weeks (05/08/24) 7) 04/17/24 Patient to increase right thumb MP flexion to 35 degrees by 3 weeks (05/08/24) 8) 04/17/24 Patient to increase right thumb IP flexion to 45 degrees by 3 weeks (05/08/24) LT) 04/10/24 Patient to increase Quick DASH score to 10% or better by 12 weeks (07/03/24) 2) 04/17/24 Patient to increase right WE to 65 degrees by 6 weeks (05/29/24) 3) 04/17/24 Patient to increase right WF to 65 degrees by 6 weeks (05/29/24) 4) 04/17/24 Patient to increase right thumb MP flexion to 50 degrees by 6 weeks (05/29/24) 5) 04/17/24 Patient to increase right thumb IP flexion to 65 degrees by 6 weeks (05/29/24) Plan: Continue skilled OT per current POC. Start Time: 10:05am End Time: 10:50am BONNIE Oliva/Cinthia,CHT BLASTING SUPERVISOR documented in this encounter Plan of Treatment Not on file documented as of this encounter Visit Diagnoses Diagnosis Unilateral primary osteoarthritis of first carpometacarpal joint, right hand- Primary documented in this encounter Care Teams Development Chemist Relationship Specialty Start Date End Date Siva Burgos MD [address] [place] [address] PCP - General 05/15/16 Cori Arreola MD [address] [address] Referring Physician Gynecology 04/10/18 documented as of this encounter
--- OUTSIDE RECORDS SUMMARY | 2024-06-23 18:24 | XMS_ITS | Encounter Summary ---
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 01/13/2024 02/05/2024 04/12/2024 3:05 AM C DT documented as of this encounter Care Teams Senior Solutions Architect Relationship Specialty Start Date End Date Siva Burgos MD [address] [place] [address] PCP - General 05/15/16 Cori Arreola MD [address] [address] Referring Physician Gynecology 04/10/18 documented as of this encounter
--- OUTSIDE RECORDS SUMMARY | 2024-06-23 18:24 | XMS_ITS | Encounter Summary ---
Author Organization [facility] Address [address] [place] [address] Care Team Providers Care Jigger Crown Pouncing Machine Operator Name Role Phone Siva Burgos MD Primary Care Provider [phone]- [phone] Cori Arreola MD Unavailable [phone] Reason for Visit * Reason Comments OT Treatment * Consultation (Routine) - Pending Review Specialty Diagnoses / Procedures Referred By Contact Referred To Contact Occupational Therapy Diagnoses Unilateral primary osteoarthritis of first carpometacarpal joint, right hand Hipolito Cat MD Phone: tel:[phone] fax:[phone] [facility] Occupational Therapy [address] [place] [address] Phone: tel: fax: Referral ID Status Reason Start Date Expiration Date Visits Requested Visits Authorized [id number] Pending Review Evaluate and Treat 4 04/16/2025 24 13 Encounter Details Date Type Department Care Team (Late st Contact Info) Description 05/01/2024 1:00 PM CLIP RIVETER Therapy [facility] Occupational Therapy [address] [place] [id number] Laly Núñez, OT [address] [place] [address] [place] [address] Unilateral primary osteoarthritis of first carpometacarpal joint, [...] on file Legal Sex Female 9:53 AM CLIP RIVETER Gender Identity Not on file Sexual Orientation Not on file documented as of this encounter Progress Notes * Laly Núñez, OT - 05/01/2024 1:00 PM CST Occupational Therapy Visit OT Daily Treatment Note Luciana Yost 1975 Subjective: Pain: 0/10 Patient feels she may have over worked her arm as her forearm is now sore. Objective: No objective measurements were taken this date. Treatment Provided: Alphabet ball x's 1 set Silver ball manipulation (3 minutes one direction, 3 minutes opposite direction) [place] and bottle activity x's 2 sets Small peg activity (making an O ) Small peg activity (thumb to SF) Bead transfer on string sing 0.5 cm beads x's 2 sets Small cone twists x's 60 twists Ball exercises for WE/WF, RD/UD, and forearm supination/pronation x's 3 minutes Small wrist sewer pipe sorter with no added weight x's 5 reps Assessment: Patient presents with decreased ROM of right thumb and wrist. Her incision is healing well with no signs of infection. She has no pain at rest. She continues to report a comfortable orthosis fit. Shetolerated all therapy activities this date. She verbalized [...] to 65 degrees by 6 weeks (05/29/24) Will add more goals as appropriate. Plan: Patient to return to therapy to continue plan of care. Start Time: 1:05 PM End Time: 1:45 PM Laly Núñez OTR/L RIVETER documented in this encounter Plan of Treatment Not on file documented as of this encounter Visit Diagnoses Diagnosis Unilateral primary osteoarthritis of first carpometacarpal joint, right hand- Primary documented in this encounter Care Teams Jigger Crown Pouncing Machine Operator Relationship Specialty Start Date End Date Siva Burgos MD [address] [place] [address] PCP - General 05/15/16 Cori Arreola MD [address] [address] Referring Physician Gynecology 04/10/18 documented as of this encounter
--- OUTSIDE RECORDS SUMMARY | 2024-06-23 18:24 | XMS_ITS | Encounter Summary ---
Author Organization Formerly [facility] Address [address] [place] [address] Care Team Providers Care Pedicurist Name Role Phone Siva Burgos MD Primary Care Provider [phone] Cori Arreola MD Unavailable [phone] Reason for Visit * Auth/Cert (Routine) Specialty Diagnoses / Procedures Referred By Contac t Referred To Contact Diagnoses Special screening for malignant neoplasms, colon Special screening for malignant neoplasms, colon [Z12.11] Procedures [place] COLONOSCOPY FLX DX W/COLLJ SPEC WHEN PFRMD COLONOSCOPY Referral ID Status Reason Start Date Expiration Date Visits Re quested Visits Authorized [id number] 1 1 Encounter Details Date Type Department Care Team (Latest Contact Info) Description 02/07/2023 7:47 AM CDT - 02/07/2023 10:15 AM CDT Hospital Encounter [facility] [address] [place] [address] Juan Maria MD [address] [place] [address] [address] Special screening for malignant neoplasms, colon Discharge Disposition: Discharge to home or self care Social History Tobacco Use Types Packs/Day Years [...] making you feel afraid or unsafe? Denies 02/07/2023 Comments No Sex and Gender Information Value Date Recorded Sex Assigned at Not on file Legal Sex Female 9:53 AM [employer] MA[employer] Gender Identity Not on file Sexual Orientation Not on file documented as of this encounter Last Filed Vital Signs Vital Sign Reading Time Taken Comments Blood Pressure 90/62 02/07/2023 10:03 AM CDT Pulse 56 02/07/2023 10:03 AM CDT Temperature 36.6 ??C (97.8 ??F) 02/07/2023 10:03 AM C DT Respiratory Rate 16 02/07/2023 10:03 AM CDT Oxygen Saturation 100% 02/07/2023 10:03 AM CDT Inhaled Oxygen Concentration - - Weight 58.1 kg (128 lb) 02/07/2023 8:00 AM CDT Height 160 cm (5' 3 ) 02/07/2023 8:00 AM CDT Body Mass Index 22.67 02/07/2023 8:00 AM CDT documented in this encounter Medications at Time of Discharge ascorbic acid (VITAMIN C) 500 mg tablet,chewable Take 1 tablet by mouth 2 times daily until finished 60 tablet/chew tab 05/07/2018 ibuprofen (ibuprofen) 200 mg tab/cap Take by mouth every 6 (six) hours as needed for pain [id number] b-nxydaje-ikg [id number] mg capsuleIndication s:stop 5 days before surgery Take by mouth meloxicam (MOBIC) 15 mg tablet Take 1 tablet (15 mg total) by mouth daily documented as of this encounter Discharge Disposition Disposition Code Departure Means Destination Comment s Discharge to home or self care documented in this encounter H&P Notes * Juan Maira MD - 02/07/2023 8:49 AM CDT PRE-PROCEDURE HISTORY & PHYSICAL NOTE (Presedation assessment per Anesthesia Team) 02/07/2023 8:49 AM Patient: Luciana Musa, date of 1975 Procedure(s) planned: colonoscopy Indication(s): diarrhea History: Patient is a 47 y.o. no significant past medical history here for diarrhea over that past few months, multiple watery liquid stools a day, no hematochezia or melena, no abdominal pain, fevers, chills, n/v, changes in diet, medication, sick contact or traveling. No specific food triggers. No family history of colon cancer or colitis. Patient Active Problem List Diagnosis Disorder of gallbladder Carpal tunnel syndrome on left Abnormal findings on diagnostic imaging of breast Special screening for malignant neoplasms, colon Past Medical History: Diagnosis Date Arthritis Past Surgical History: Procedure Laterality Date CHOLECYSTECTOMY 2017 HEMORRHOID SURGERY Hemorrhoidectomy OTHER SURGICAL HISTORY 2017 Single Site DaVinci Cholecystectomy No Known Allergies Current Facility-Administered Medications Medication Dose Route Frequency Provider Last Rate Last Admin ondansetron (ZOFRAN) injection 4 mg 4 mg intravenous Q30 Min PRN Juan Maria MD sodium chloride 0.9% flush 0.5-20 mL 0.5-20 mL intra-catheter Q8H NICOLASA Juan Maria MD sodium chloride 0.9% flush 0.5-20 mL 0.5-20 mL intra-catheter PRN Juan Maria MD sodium chloride 0.9% infusion 30 mL/hr intravenous Continuous Juan Maria MD 30 mL/hr at 02/07/23 0846 Rate Verify at 02/07/23 0846 sodium chloride 0.9% infusion 125 mL/hr intravenous Continuous Juan Maria MD Family History Problem Relation Age of Onset Multiple sclerosis Mother Multiple sclerosis; Cancer Other Prostate cancer Father 68 reports that she has never smoked. She has never used smokeless tobacco. She reports that she does not use drugs. No current facility-administered medications on file prior to encounter. Current Outpatient Medications on File Prior to Encounter Medication Sig Dispense Refill ascorbic acid (VITAMIN C) 500 mg tablet,chewable Take 1 tablet by mouth 2 times daily until finished 60 tablet/chew tab 0 meloxicam (MOBIC) 15 mg tablet Take 1 tablet (15 mg total) by mouth daily ibuprofen (ibuprofen) 200 mg tab/cap Take by mouth every 6 (six) hours as needed for pain [id number]-onj-rzxrcre-ast [id number] mg capsule Take by mouth. Physical Exam: BP 104/71 Pulse 72 Temp 36.4 ??C (97.5 ??F) (Skin) Resp 18 Ht 160 cm (5' 3 ) Wt 58.1 kg (128 lb) LMP (Approximate) SpO2 96% BMI 22.67 kg/m?? GENERAL: The patient is alert, oriented and in no apparent distress. HEENT: no jaundice LUNGS: non-labored ABDOMEN: Soft, no tenderness NEURO: Non-focal. ASA class per anesthesia Sedation Plan: Monitored Anesthesia Care (MAC) by the anesthesia team. Procedure Plan: #colonoscopy Based on the above assessment, we will perform the procedures indicated above. I have discussed the plan, risks, benefits and alternatives with the patient or guardian. When assessment above was not obtained immediately before the procedure, I have reassessed this patient and there are no changes. Juan Maria MD documented in this encounter Procedure Notes * Juan Maria MD - 02/07/2023 8:00 AM CDTAssociated Order(s): COLONOSCOPY [facility] [place] Patient Name: Luciana Musa Procedure Date: 02/07/2023 8:00 AM Date of : 1975 Admit Type: Outpatient Age: 47 Gender: Female Attending MD: Juan Maria M.D. Room: [facility] ENDOSCOPY ROOM 2 Note Status: Finalized Patient Profile: This is a 47 year old female no significant past medical history here for diarrhea over that past few months, multiple watery liquid stools a day, no hematochezia or melena, no abdominal pain, fevers, chills, n/v, changes in diet, medication, sick contact or traveling. No specific food triggers. No family history of colon cancer or colitis. Procedure: Colonoscopy Indications: This is the patient's first colonoscopy, Clinically significant diarrhea of unexplained origin Referring MD: Cori Arreola M.D., Siva Burgos M.D. Providers: Juan Maria M.D. Impression: - Perianal skin tags found on perianal exam. - The examined portion of the ileum was normal. - Erythematous mucosa in the rectum and left colon. Biopsied. - The examination was otherwise normal. Biopsies were taken with a cold forceps from the right colon for evaluation of microscopic colitis - Internal hemorrhoids. Recommendation: - Patient has a contact number available for emergencies. The signs and symptoms of potential delayed complications were discussed with the patient. Return to normal activities tomorrow. Written discharge instructions were provided to the patient. - Discharge patient to home (with escort). - Resume previous diet. - Continue present medications. - Await pathology results. - No ibuprofen, naproxen, or other non-steroidal anti-inflammatory drugs. - Repeat colonoscopy for surveillance based on pathology results. - Return to primary care physician as previously scheduled. Medicines: Monitored Anesthesia Care Complications: No immediate complications. Estimated Blood Loss: Estimated blood loss was minimal. Procedure: Pre-Anesthesia Assessment: - Prior to the procedure, a History and Physical was performed, and patient medications and allergies were reviewed. The patient is competent. The risks and benefits of the procedure and the sedation options and risks were discussed with the patient. All questions were answered and informed consent was obtained. Patient identification and proposed procedure were verified by the physician, the diesel dragline operator and the lead pharmacy technician in the endoscopy suite. Mental Status Examination: normal. Prophylactic Antibiotics: The patient does not require prophylactic antibiotics. Prior Anticoagulants: The patient has taken no anticoagulant or antiplatelet agents. After reviewing the risks and benefits, the patient was deemed in satisfactory condition to undergo the procedure. The anesthesia plan was to use monitored anesthesia care (MAC). Immediately prior to administration of medications, the patient was re-assessed for adequacy to receive sedatives. The heart rate, respiratory rate, oxygen saturations, blood pressure, adequacy of pulmonary ventilation, and response to care were monitored throughout the procedure. The physical status of the patient was re-assessed after the procedure. The benefits, risks and alternatives of the procedure and sedation were discussed and informed consent was obtained. All questions were answered. Please refer to the signed informed consent document in the medical record. The bowel preparation used was Miralax and bisacodyl tablets via split dose instruction. The scope was passed under direct vision. The Colonoscope [id number] was introduced through the anus and advanced to the the terminal ileum. The colonoscopy was performed without difficulty. The patient tolerated the procedure well. The quality of the bowel preparation was good. Bowel prep was administered using a split dose. Findings: Skin tags were found on perianal exam. The terminal ileum appeared normal. An area of mildly erythematous mucosa was found in the rectum, in the sigmoid colon and in the descending colon. This was biopsied with a cold forceps for histology. The exam was otherwise without abnormality. Biopsies for histology were taken with a cold forceps from the right colon for evaluation of microscopic colitis. Internal hemorrhoids were found during retroflexion. Juan Maria M.D. 02/07/2023 9:37:23 AM Number of Addenda: 0 Note Initiated On: 02/07/2023 8:00 AM Procedure Code(s): --- Professional --- 09391, Colonoscopy, flexible; with biopsy, single or multiple --- Technical --- 19125, Colonoscopy, flexible; with biopsy, single or multiple Diagnosis Code(s): --- Professional --- K64.8, Other hemorrhoids K62.89, Other specified diseases of anus and rectum K63.89, Other specified diseases of intestine K64.4, Residual hemorrhoidal skin tags R19.7, Diarrhea, unspecified --- Technical --- K64.8, Other hemorrhoids K62.89, Other specified diseases of anus and rectum K63.89, Other specified diseases of intestine K64.4, Residual hemorrhoidal skin tags R19.7, Diarrhea, unspecified CPT copyright 2020 [employer]. All rights reserved. The codes documented in this report are preliminary and upon director of corporate marketing review may be revised to meet current compliance requirements. Recognized by the [employer] for promoting quality in endoscopy documented in this encounter Miscellaneous Notes * Perioperative Nursing Note - Cira Flood RN - 02/07/2023 9:[address] Maria spoke with Patient and regarding today's procedure. She will determine when to returnfor another colonoscopy based on the biopsy results taken today. documented in this encounter Plan of Treatment Not on file documented as of this encounter Procedures Procedure Name Priority Date/Time Associated Diagnosis Comments SURGICAL PATHOLOGY STAT 02/07/2023 10 :08 AM CDT Special screening for malignant neoplasms, colon COLON BIOPSY 02/07/2023 8:41 AM CDT Special screening for malignant neoplasms, colon POCT HCG, URINE Routine 02/07/2023 8:07 AM CDT COLONOSCOPY 02/07/2023 8:00 AM CDT documented in this encounter Results * Surgical pathology (02/07/2023 10:08 AM CDT) Tissue (Colon, Biopsy) 02/07/2023 9:28 AM CDT Tissue (Colon, Biopsy) 02/07/2023 9:28 AM CDT Narrative PATHOLOGY [facility] - 02/09/2023 2:32 PM CDT EPIC results best viewed via link to PDF [facility] Department of Pathology [address] [place] [id number] Note to Patients: This report may contain a detailed description of human tissue sent by a health care provider to the laboratory for pathologic evaluation. The content of this report is essential for diagnosis and may provide important critical findings. This information may be unfamiliar to patients to review without a medical professional present. It is advised that the patient review this report in the presence of a health care provider who can answer questions and explain the details. Final Report Patient Name: ??LUCIANA MUSAElmer Address: ??[facility] [address], ??[place], [place] ??[address]- Gender: ??F : ??1975 (Age: 47) Service: ??Gastro Location: ??[facility] Hospital #: ??[id number] Patient Type: ??[facility] Accession # ?[id number] Taken: ??02/07/2023 Received: ??02/07/2023 Accessioned: ??02/07/2023 Reported: ??02/09/2023 Physician(s):Juan Maria MD Diagnosis: A: Right colon, endoscopic biopsy: ? No significant histopathologic abnormality ? Negative for active and microscopic colitis B: Left colon, erythematous mucosa, endoscopic biopsy: ? No significant histopathologic abnormality ? Negative for active and microscopic colitis ? Prabha Moon M.D. Report Electronically Reviewed and Signed Out By ??Prabha Moon M.D. ??02/09/2023 14:32:00 Specimen(s) Received: A: Right colon biopsies B: Left colon biopsies Microscopic Description: Microscopic examination corroborates the diagnosis. The patient's clinical history is reviewed, and note is made clinically significant diarrhea of unknown origin. ??Procedure report is reviewed, and note is made of relatively unremarkable right colon with erythematous mucosa noted in left colon and sigmoid colon. ?? Sections both right and left colon biopsy material demonstrate fragments of benign colonic mucosa with intact crypt architecture. ??Architectural changes to suggest chronic mucosal injury are not seen. ??Underlying lamina propria shows scant edema and extravasated erythrocytes as well as occasional lymphoid follicles with germinal centers. ??Significant surface enterocyte damage is not seen. ??Increased intraepithelial lymphocytes are not seen and the subepithelial collagen labeled does not appear thickened. ?? Clinical History: Special screening for malignant neoplasms, colon Colon biopsy Gross Description: The specimen is submitted in two formalin containers labeled LUCIANA MUSA . Jose. ??The first container is labeled right colon . It is four mercado 1 mm fragments. All in A. B. ??The second container is labeled left colon . It is seven mercado 1-2 mm fragments. All in B. T.A. Britt Joe., P.A./Prabha Moon M.D. REPORT IMAGES AND SCANNED DOCUMENTS, IF INCLUDED, ONLY VIEWABLE IN PDF VERSION OF REPORT The performance characteristics of some immunohistochemical stains, fluorescence in-situ hybridization tests and immunophenotyping by flow cytometry cited in this report (if any) were determined by the Surgical Pathology Department at [facility] as part of an ongoing quality assurance monitor body program and in compliance with federally mandated regulations drawn from the Clinical Laboratory Improvement Act of 1988 (CLIA '88). ??Some of these tests rely on the use of analyte specific reagents and are subject to specific labeling requirements by the US Food and Drug Administration. ??Such diagnostic tests may only be performed in a facility that is certified by the Department of Health and Human Services as a high complexity laboratory under CLIA '88. The FDA has determined that such clearance or approval is not necessary. ??This test is used for clinical purposes. ??It should not be regarded as investigational or for research. ??Nevertheless, federal rules concerning the medical use of analyte specific reagents require that the following disclaimer be attached to the report: This test was developed and its performance characteristics determined by the Surgical Pathology Department [facility]. ??It has not been cleared or approved by the U. S. Food and Drug Administration. Note for decalcified specimens: This assay has not been validated on decalcified tissues. Results should be interpreted with caution given the possibility of false negativity on decalcified specimens Juan Maria MD LAB PATHOLOGY ORDERABLES Final R esult PATHOLOGY [facility] [address] [place] [address] * POCT hCG, urine (02/07/2023 8:07 AM CDT) HCG, ur, POC Negative Lot Number [id number] QC Backgroud Clear Acceptable QC Control Line Acceptable Urine 02/07/2023 8:07 AM CDT us Juan Maria MD POINT OF CARE TEST ORDERABLES Fi nal Result * COLONOSCOPY (02/07/2023 8:00 AM CDT) Anatomical Region Laterality Modality Other Narrative Procedure Note Juan Maria MD - 02/07/2023 8:00 AM CDT [facility] [place] Patient Name: Luciana Musa Procedure Date: 02/07/2023 8:00 AM Date of : 1975 Admit Type: Outpatient Age: 47 Gender: Female Attending MD: Juan Maria M.D. Room: [facility] ENDOSCOPY ROOM 2 Note Status: Finalized Patient Profile: This is a 47 year old female no significant past medical history here for diarrhea over that pastfew months, multiple watery liquid stools a day, no hematochezia or melena, no abdominal pain, fevers, chills, n/v, changes in diet, medication, sickcontact or traveling. No specific food triggers. No family history of colon cancer or colitis. Procedure: Colonoscopy Indications: This is the patient's first colonoscopy, Clinically significant diarrhea of unexplained origin Referring MD: Cori Arreola M.D., Siva Burgos M.D. Providers: Juan Maria M.D. Impression: - Perianal skin tags found on perianal exam. - The examined portion of the ileum was normal. - Erythematous mucosa in the rectum and left colon. Biopsied. - The examination was otherwise normal. Biopsieswere taken with a cold forceps from the right colon for evaluation of microscopic colitis - Internal hemorrhoids. Recommendation: - Patient has a contact number available for emergencies. The signs and symptoms of potential delayed complications were discussed with thepatient. Return to normal activities tomorrow. Written discharge instructions were provided to thepatient. - Discharge patient to home (with escort). - Resume previous diet. - Continue present medications. - Await pathology results. - No ibuprofen, naproxen, or other non-steroidal anti-inflammatory drugs. - Repeat colonoscopy for surveillance based on pathology results. - Return to primary care physician as previously scheduled. Medicines: Monitored Anesthesia Care Complications: No immediate complications. Estimated Blood Loss: Estimated blood loss was minimal. Procedure: Pre-Anesthesia Assessment: - Prior to the procedure, a History and Physicalwas performed, and patient medications and allergieswere reviewed. The patient is competent. The risks and benefits of the procedure and the sedation optionsand risks were discussed with the patient. Allquestions were answered and informed consent was obtained. Patient identification and proposed procedure were verified by the physician, the diesel dragline operator and the lead pharmacy technician in the endoscopy suite. Mental Status Examination: normal. Prophylactic Antibiotics: The patient does not require prophylactic antibiotics. Prior Anticoagulants: The patient has taken no anticoagulant or antiplatelet agents. Afterreviewing the risks and benefits, the patient was deemed in satisfactory condition to undergo the procedure.The anesthesia plan was to use monitored anesthesiacare (MAC). Immediately prior to administration of medications, the patient was re-assessed foradequacy to receive sedatives. The heart rate, respiratory rate, oxygen saturations, blood pressure, adequacyof pulmonary ventilation, and response to care were monitored throughout the procedure. The physical status of the patient was re-assessed after the procedure. The benefits, risks and alternatives of theprocedure and sedation were discussed and informed consentwas obtained. All questions were answered. Please referto the signed informed consent document in the medical record. The bowel preparation used was Miralax and bisacodyl tablets via split dose instruction. The scope was passed under direct vision. TheColonoscope [id number] was introduced through the anus and advanced to the the terminal ileum. The colonoscopy was performed without difficulty. The patient tolerated the procedure well. The qualityof the bowel preparation was good. Bowel prep was administered using a split dose. Findings: Skin tags were found on perianal exam. The terminal ileum appeared normal. An area of mildly erythematous mucosa was found in the rectum, in the sigmoid colon and in the descending colon. This was biopsied with acold forceps for histology. The exam was otherwise without abnormality. Biopsies for histology were taken with a cold forceps from the right colon for evaluation of microscopic colitis. Internal hemorrhoids were found during retroflexion. Juan Maria M.D. 02/07/2023 9:37:23 AM Number of Addenda: 0 Note Initiated On: 02/07/2023 8:00 AM Procedure Code(s): --- Professional --- 67261, Colonoscopy, flexible; with biopsy, single or multiple --- Technical --- 65183, Colonoscopy, flexible; with biopsy, single or multiple Diagnosis Code(s): --- Professional --- K64.8, Other hemorrhoids K62.89, Other specified diseases of anus and rectum K63.89, Other specified diseases of intestine K64.4, Residual hemorrhoidal skin tags R19.7, Diarrhea, unspecified --- Technical --- K64.8, Other hemorrhoids K62.89, Other specified diseases of anus and rectum K63.89, Other specified diseases of intestine K64.4, Residual hemorrhoidal skin tags R19.7, Diarrhea, unspecified CPT copyright 2020 [employer]. All rights reserved. The codes documented in this report are preliminary and upon director of corporate marketing reviewmay be revised to meet current compliance requirements. Recognized by the [employer] for promoting quality in endoscopy Juan Maria MD ENDOSCOPY PROCEDURES Final Resul t documented in this encounter Visit Diagnoses Diagnosis Special screening for malignant neoplasms, colon- Primary documented in this encounter Admitting Diagnoses Diagnosis Special screening for malignant neoplasms, colon documented in this encounter Administered Medications Inactive Administered Medications - up to 3 most recent administrations Medication Order MAR Action Action Date Dose Rate Site ondansetron (ZOFRAN) injection 4 mg 4 mg, intravenous, Administer over 2 Minutes, Every 30 min PRN, nausea, vomiting, Starting on Sun02/07/23 at 0752, For 2 doses, Recovery (GI), Indications: Nausea and VomitingIndications:Nausea and Vomiting sodium chloride 0.9% flush 0.5-20 mL 0.5-20 mL, intra-catheter, Every 8 hours scheduled, First dose on Sun02/07/23 at 0830, Pre-Procedure (GI), Flush volume based on line type and size. sodium chloride 0.9% flush 0.5-20 mL 0.5-20 mL, intra-catheter, As needed, line care, Starting on Sun02/07/23 at 0753, Pre-Procedure (GI), Flush volume based on line type and size. Flush before and after each use. sodium chloride 0.9% infusion 30 mL/hr, intravenous, Continuous, Starting on Sun02/07/23 at 0830, Pre-Procedure (GI) Restarted 02/07/2023 9:26 AM CDT Rate/Dose Verify 02/07/2023 8:46 AM CDT 30 mL/h r New Bag 02/07/2023 8:14 AM CDT 30 mL/hr 30 mL/hr sodium chloride 0.9% infusion 125 mL/hr, intravenous, Continuous, Starting on Sun02/07/23 at 0830, Recovery (GI) documented in this encounter Historical Medications * This list may reflect changes made after this encounter. meloxicam (MOBIC) 15 mg tablet Take 1 tablet (15 mg total) by mouth daily added in this encounter Active and Recently Administered Medications Times are shown in CDT. Scheduled Medication Order 02/05/2023 02/06/2023 02/07/2023 sodium chloride 0.9% flush 0.5-20 mL 0.5-20 mL, intra-catheter, Every 8 hours scheduled, First dose on Sun02/07/23 at 0830, Pre-Procedure (GI), Flush volume based on line type and size. 0830 (Due) Continuous Medication Order 02/05/2023 02/06/2023 02/07/2023 sodium chloride 0.9% infusion 30 mL/hr, intravenous, Continuous, Starting on Sun02/07/23 at 0830, Pre-Procedure (GI) 0814 (New Bag - Prov ider: Esperanza Musa RN)0846 (Rate/Dose Verify - Provider: Sanket Pack CRNA)0925 (Paused - Provider: Sankte Pack CRNA - Comment: Switch to gravity)0926 (Restarted - Provider: Sanket Pack CRNA)1448 (Due: Stopped) sodium chloride 0.9% infusion 125 mL/hr, intravenous, Continuous, Starting on Sun02/07/23 at 0830, Recovery (GI) 0830 (Due) PRN Medication Order 02/05/2023 02/06/2023 02/07/2023 ondansetron (ZOFRAN) injection 4 mg 4 mg, intravenous, Administer over 2 Minutes, Every 30 min PRN, nausea, vomiting, Starting on Sun02/07/23 at 0752, For 2 doses, Recovery (GI), Indications: Nausea and Vomiting sodium chloride 0.9% flush 0.5-20 mL 0.5-20 mL, intra-catheter, As needed, line care, Starting on Sun02/07/23 at 0753, Pre-Procedure (GI), Flush volume based on line type and size. Flush before and after each use. documented in this encounter Orders Medications Ordered That Jacky ht Not Have Been Administered Count Last Ordered Date First Ordered Date ondansetron (ZOFRAN) injection 4 mg 1 02/07 sodium chloride 0.9% flush 0.5-20 mL 2 01/17 sodium chloride 0.9% infusion 1 02/07/2023 Discharge Count Last Ordered Date First Orde red Date DISCHARGE PATIENT 1 02/07/2023 documented in this encounter Care Teams Pedicurist Relationship Specialty Start Date End Date Siva Burgos MD [address] [place] [address] PCP - General 05/15/16 Cori Arreola MD [address] [address] Referring Physician Gynecology 04/10/18 documented as of this encounter
--- OUTSIDE RECORDS SUMMARY | 2024-06-23 18:24 | XMS_ITS | Encounter Summary ---
Author Organization [facility] Healthcare Address [address] [place] [address] Care Team Providers Care Tier Over Name Role Phone Siva Burgos MD Primary Care Provider [phone] Cori Arreola MD Unavailable [phone] Reason for Visit * Reason Comments OT Treatment OT Progress Note * Consultation (Routine) - Pending Review Specialty Diagnoses / Procedures Referred By Contact Referred To Contact Occupational Therapy Diagnoses Unilateral primary osteoarthritis of first carpometacarpal joint, right hand Hipolito Cat MD Phone: tel:[phone] fax:[phone] 1 [facility] Occupational Therapy [address] [place] [id number] Phone: tel: fax: Referral ID Status Reason Start Date Expiration Date Visits Requested Visits Authorized [id number] Pending Review Evaluate and Treat 4 04/16/2025 24 13 Encounter Details Date Type Department Care Team (Late st Contact Info) Description 06/04/2024 3:15 PM WAREHOUSE ASSOCIATE Therapy [facility] Occupational Therapy [address] [place] [id number] Radha Hewitt OT Unilateral primary osteoarthritis of [...] on file Legal 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 I have a lot of trouble with spray bottles and grasping rags. Pain: 06/27 right thumb 10 weeks post op Objective: AROM Forearm and Wrist Right supination/pronation WFL extension/flexion 60/50 RD/UD 1024 Thumb AROM Right Radial Abduction 36 Palmar Abduction 40 MP 15/30 IP 10/40 Opposition Kapandji scale 9 Strength testing deferred until 12 weeks post op. Treatment Provided: Scar massage to right radial thumb x 3 min Gentle PROM to right thumb MP and IP flexion x 5 reps WE/WF off of foam wedge using 2 lb dumbbell x's 10 reps x's 2 sets Bead transfer activity on string using 0.5 cm beads x's 2 sets Red therabar stabilize with right and bend with left x's 2 minutes Sensory motor/coordination activities with tennis ball- 2 hand toss x 1 min and 1 hand toss and catch x 1 min Assessment: Patient has made good progress with AROM of right wrist and thumb. She still lacks someMP and IP flexion, but is having some MP joint pain which could be limiting progress with this motion. Although some forearm and wrist strengthening has been initiated, her surgical procedure limits her from progressing with any pinch or heavy rn internal medicine strengthening until 12 weeks post op. She will require continued therapy to facilitate additional ROM gains and progression to strengthening as tolerated in 2 weeks. She persists with functional deficits including grasping and pinching for self care and household tasks. 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 ST) 04/10/24 Patient to don/doff orthosis independently by end of session today (04/10/24)- met 2) 04/10/24 Patient to verbalize a comfortable orthosis fit by 1 week (04/17/24)- met 3) 04/17/24 Patient to increase right WE to 55 degrees by 3 weeks (05/08/24)-met 4) 04/17/24 Patient to increase right WF to 50 degrees by 3 weeks (05/08/24)- met 5) 04/17/24 Patient to increase right RD to 20 degrees by 3 weeks (05/08/24)-ongoing 6) 04/17/24 Patient to increase right UD to 20 degrees by 3 weeks (05/08/24)- met 7) 04/17/24 Patient to increase right thumb MP flexion to 35 degrees by 3 weeks (05/08/24)- progressing 8) 04/17/24 Patient to increase right thumb IP flexion to 45 degrees by 3 weeks (05/08/24)-progressing LT) 04/10/24 Patient to increase Quick DASH score to 10% or better by 12 weeks (07/03/24) 2) 04/17/24 Patient to increase right WE to 65 degrees by 6 weeks (05/29/24)-ongoing 3) 04/17/24 Patient to increase right WF to 65 degrees by 6 weeks (05/29/24)-ongoing 4) 04/17/24 Patient to increase right thumb MP flexion to 50 degrees by 6 weeks (05/29/24) 5) 04/17/24 Patient to increase right thumb IP flexion to 65 degrees by 6 weeks (05/29/24) Additional strengthening goals to be added at 12 weeks post op. Plan: Patient to continue with current POC. She has 2 remaining authorized visits and will then need additional auth from insurance. Start Time: 03:20pm End Time: 04:00pm BONNIE Oliva/Cinthia, CHT HOUSE ASSOCIATE documented in this encounter Plan of Treatment Not on file documented as of this encounter Visit Diagnoses Diagnosis Unilateral primary osteoarthritis of first carpometacarpal joint, right hand- Primary documented in this encounter Care Teams Tier Over Relationship Specialty Start Date End Date Siva Burgos MD [address] [place] [address] PCP - General 05/15/16 Cori Arreola MD [address] [address] Referring Physician Gynecology 04/10/18 documented as of this encounter
--- OUTSIDE RECORDS SUMMARY | 2024-06-23 18:24 | XMS_ITS | Encounter Summary ---
Author Organization [facility] Healthcare Address [address] [place] [address] Care Team Providers Care Sorter Packer Name Role Phone Siva Burgos MD Primary Care Provider [phone] Cori Arreola MD Unavailable [phone] Reason for Visit * Reason Comments Dizziness Encounter Details Date Type Department Care Team ([facility] Contact Info) Description 11/02/2023 1:45 PM CDT - 11/02/2023 2:58 PM CDT Emergency [facility] Emergency Department [address] [place] [id number] Vertigo (Primary Dx); Labyrinthitis, unspecified laterality; Acute middle ear effusion, bilateral Discharge Disposition: Discharge to home or self [...] on file 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 Gender Identity Not on file Sexual Orientation Not on file documented as of this encounter Last Filed Vital Signs Vital Sign Reading Time Taken Comments Blood Pressure 113/75 11/02/2023 1:38 PM CDT Pulse 77 11/02/2023 1:38 PM CDT Temperature 36.4 ??C (97.6 ??F) 11/02/2023 1:38 PM CD T Respiratory Rate 18 11/02/2023 1:38 PM CDT Oxygen Saturation 100% 11/02/2023 1:38 PM CDT Inhaled Oxygen Concentration - - Weight 58.5 kg (129 lb) 11/02/2023 10:47 AM CDT Height 160 cm (5' 3 ) 11/02/2023 10:47 AM CDT Body Mass Index 22.85 11/02/2023 10:47 AM CDT documented in this encounter Discharge Instructions * Attachments The following attachments cannot be sent through Care Everywhere. * Labyrinthitis ([place]) ([place]) documented in this encounter Medications at Time of Discharge ascorbic acid (VITAMIN C) 500 mg tablet,chewable Take 1 tablet by mouth 2 times daily until finished 60 tablet/chew tab 05/07/2018 hydroxychloroqui ne (PLAQUENIL) 200 mg tablet Take 1 tablet (200 mg total) by mouth daily 02/08/2023 ibuprofen (ibuprofen) 200 mg tab/cap Take by mouth every 6 (six) hours as needed for pain [id number] mg capsuleIndicatio ns:stop 5 days before surgery Take by mouth meclizine (ANTIVERT) 25 mg tabletIndication s:Vertigo Take 1 tablet (25 mg total) by mouth 3 (three) times a day as needed for dizziness Collaborating physician Sree Springer MD 30 tablet 11/02/2023 meloxicam (MOBIC) 15 mg tablet Take 1 tablet (15 mg total) by mouth daily documented as of this encounter Ordered Prescriptions Prescription Sig Dispense Quantity Refills Last Filled Start Date End Date meclizine (ANTIVERT) 25 mg tabletIndications :Vertigo Take 1 tablet (25 mg total) by mouth 3 (three) times a day as needed for dizziness Collaborating physician Sree Springer MD 30 tablet 11/02/2023 documented in this encounter Discharge Disposition Disposition Code Departure Means Destination Comment s Discharge to home or self care documented in this encounter ED Notes * Florian Tsang PA - 11/02/2023 2:45 PM CDT HPI Chief Complaint Patient presents with Dizziness 48-year-old female past medical history of arthritis presents with chief complaint of episodes of feeling off balance. Onset 2 days ago. Symptoms are worse whenever she turns over in bed. Feels like the room is spinning. Last less than 1 minute. Resolved spontaneously. Denies fever or chills. Denies runny nose, sinus congestion, sore throat, or cough. Complains of a fullness/pressure in her ears.Denies ear pain or ringing in ears. Denies numbness/tingling, headache, change in vision, or other change in sensorium. Denies history of hypertension, CAD, CVA/TIA, or smoking. Denies history of head injury. History provided by: Patient billet driller used: No Patient History: Patient Active Problem List Diagnosis Date Noted Vertigo 11/02/2023 Labyrinthitis 11/02/2023 Acute middle ear effusion, bilateral 11/02/2023 Special screening for malignant neoplasms, colon 01/05/2023 Abnormal findings on diagnostic imaging of breast 04/18/2018 Carpal tunnel syndrome on left 04/04/2018 Disorder of gallbladder 05/15/2016 Past Medical History: Diagnosis Date Arthritis Past Surgical History: Procedure Laterality Date APPENDECTOMY 07/2023 [facility] CHOLECYSTECTOMY 2017 HEMORRHOID SURGERY Hemorrhoidectomy OTHER SURGICAL HISTORY 2017 Single Site [facility] Cholecystectomy Family History Problem Relation Age of Onset Multiple sclerosis Mother Multiple sclerosis; Cancer Other Prostate cancer Father 68 Social History Tobacco Use Smoking status: Never Smokeless tobacco: Never Substance and Sexual Activity Alcohol use: Yes Drug use: No Sexual activity: None Social History Social History Narrative Not on file Review of Systems Review of Systems All other systems reviewed negative. All available allergies, past medical history, past surgical history, social history, and medications reviewed from the medical record, nursing notes, and with patient Physical Exam ED Triage Vitals Temp Pulse Resp BP SpO2 11/02/23 1047 11/02/23 1047 11/02/23 1047 11/02/23 1047 11/02/23 1047 36.6 ??C (97.8 ??F) 64 16 129/66 100 % Temp src Heart Rate Source Patient Position BP Location FiO2 (%) 11/02/23 1047 -- -- 11/02/23 1338 -- Temporal Right arm Height Height Method Weight Weight Method 11/02/23 1047 11/02/23 1047 11/02/23 1047 11/02/23 1047 1.6 m (5' 3 ) Stated 58.5 kg (129 lb) Stated Physical Exam Vitals and nursing note reviewed. Constitutional: General: She is not in acute distress. Appearance: Normal appearance. She is not ill-appearing, toxic-appearing or diaphoretic. HENT: Head: Normocephalic and atraumatic. Right Ear: Ear canal and external ear normal. Left Ear: Ear canal and external ear normal. Ears: Comments: Bilateral effusions Nose: Congestion present. Mouth/Throat: Mouth: Mucous membranes are moist. Pharynx: Oropharynx is clear. Eyes: General: No scleral icterus. Right eye: No discharge. Left eye: No discharge. Extraocular Movements: Extraocular movements intact. Conjunctiva/sclera: Conjunctivae normal. Pupils: Pupils are equal, round, and reactive to light. Neck: Vascular: No carotid bruit. Comments: Trachea midline. Negative JVD. Cardiovascular: Rate and Rhythm: Normal rate and regular rhythm. Pulses: Normal pulses. Heart sounds: Normal heart sounds. Pulmonary: Effort: Pulmonary effort is normal. Breath sounds: Normal breath sounds. Musculoskeletal: General: No swelling. Normal range of motion. Cervical back: Normal range of motion and neck supple. Right lower leg: No edema. Left lower leg: No edema. Skin: General: Skin is warm and dry. Neurological: General: No focal deficit present. Mental Status: She is alert and oriented to person, place, and time. Cranial Nerves: No cranial nerve deficit. Sensory: No sensory deficit. Motor: No weakness. Coordination: Coordination normal. Gait: Gait normal. Comments: Negative Romberg's test Psychiatric: Mood and Affect: Mood normal. Behavior: Behavior normal. Thought Content: Thought content normal. Judgment: Judgment normal. Voice recognition software Informative Direct was used to dictate and transcribe this document. Diagrammer And Seamer variances may occur. Despite proofreading, typographical errors may occur. MDM Medical Decision Making 48-year-old female with no pertinent past medical history presents with vertigo episodes over the last couple of days. Exacerbated by position change. Spontaneously resolve. Accompanied by a fullnessin both ears. Denies hearing loss or pain. Neurologically she is intact. Negative for CVA or cardiac risk factors. Signs/symptoms are consistent with labyrinthitis and bilateral otitis effusions. Offered CT of head without contrast to patient but she refused at this time. Will place patient on meclizine 25 mg q.6-8 hours p.r.n. dizziness. Recommended that she return to the emergency department immediately for worsening signs/symptoms. Recommended that she follow-up with her PCP. Final diagnoses: Vertigo Labyrinthitis, unspecified laterality Acute middle ear effusion, bilateral Florian Tsang PA 11/02/23 1448 Cosigned by Anthony Robles MD at 11/02/2023 9:56 PM CDT * Bella Clements RN - 11/02/2023 10:46 AM CDT Pt to ED for c/o dizziness x 2 days. Pt reports it started when she was laying in bed and turned over. Pt reports dizziness when sitting and standing but worse when she is laying down. documented in this encounter Plan of Treatment Not on file documented as of this encounter Procedures Procedure Name Priority Date/Time Associated Diagnosis Comments ECG 12-LEAD STAT 11/02/2023 11:13 AM CDT EGFR STAT 11/02/2023 10:56 AM CDT DIFFERENTIAL AUTO STAT 11/02/2023 10: 56 AM CDT CBC WITH AUTO DIFFERENTIAL STAT 11/02/2023 10:56 AM CDT COMPREHENSIVE METABOLIC PANEL STAT 11/02/2023 10:56 AM CDT MAGNESIUM STAT 11/02/2023 10:55 AM CDT documented in this encounter Results * ECG 12 lead (11/02/2023 11:13 AM CDT) 11/02/2023 11:1 3 AM CDT Narrative [facility] - 11/02/2023 11:26 AM CDT Vent Rate: 63 bpm RR Interval: 949 msec SC Interval: 128 msec QRS Duration: 102 msec QT Interval: 393 msec QTC Interval: 400 msec P-R-T Ar[place]: 15 - 104 - 40 degrees IMPRESSION: SINUS RHYTHM RIGHT AXIS DEVIATION ??[QRS AXIS > 100] ABNORMAL ECG Electronically Signed By: Yan Steele MD us Shalom Lopez MD ECG ORDERABLES Fin al Result [facility] * eGFR (11/02/2023 10:56 AM CDT) eGFR >90 >=60 mL/min/1. 73 m2 Comment: Interpretive Data Reference Interval Normal ?>/= 90 mL/min/1.73m2 Mildly decreased* ? 60 - 89 mL/min/1.73m2 Mildly to moderately decreased ?45 - 59 mL/min/1.73m2 Moderately to severely decreased ??30 - 44 mL/min/1.73m2 Severely decreased ?15 - 29 mL/min/1.73m2 Kidney Failure ?< 15 ??mL/min/1.73m2 *Relative to young adult level Estimated glomerular filtration rate is determined by the 2020 CKD-EPI equation recommended by the National Kidney Foundation (A Unifying Approach to GFR Estimation: Recommendations of the NKF-ASK Task Force on Reassessing the Inclusion of Race in Diagnosing Kidney Disease, JASN 2020). The CKD-EPI equation should not be used for patients with unstable renal function and has not been validated in children and those over 70. Current interpretive data was last reviewed 2021. Blood 11/02/2023 10:5 6 AM CDT 11/02/2023 11:11 AM CDT us Shalom Lopez MD LAB BLOOD ORDERABLE S Final Result [facility] ([place] [place] [address] * Differential, auto (11/02/2023 10:56 AM CDT) Neutrophil abs 3.1 1.5 - 6.5 K/cumm Imm gran abs 0.0 0.0 - 0.1 K/cumm [facility] Lymphocyte abs 1.3 0.8 - 3.3 K/cumm [facility] ([place]) Monocyte abs 0.4 0.2 - 0.8 K/cumm [facility] ([place]) Eosinophil abs 0.1 0.0 - 0.5 K/cumm [facility] ([place]) Basophil abs 0.1 0.0 - 0.1 K/cumm [facility] ([place]) Neutrophil pct 62.5 % [facility] ([place] Comment: Interpretive Data Percent cell count reference ranges are not reported, since discordance with absolute values may lead to misinterpretation of CBC data. Current Interpretive Data was last revised on 2017. Imm gran pct 0.2 % [facility] Comment: Interpretive Data Percent cell count reference ranges are not reported, since discordance with absolute values may lead to misinterpretation of CBC data. Current Interpretive Data was last revised on 2017. Lymphocyte pct 25.8 % [facility] ([place] Comment: Interpretive Data Percent cell count reference ranges are not reported, since discordance with absolute values may lead to misinterpretation of CBC data. Current Interpretive Data was last revised on 2017. Monocyte pct 8.5 % [facility] ([place] Comment: Interpretive Data Percent cell count reference ranges are not reported, since discordance with absolute values may lead to misinterpretation of CBC data. Current Interpretive Data was last revised on 2017. Eosinophil pct 2.0 % [facility] Comment: Interpretive Data Percent cell count reference ranges are not reported, since discordance with absolute values may lead to misinterpretation of CBC data. Current Interpretive Data was last revised on 2017. Basophil pct 1.0 % [facility] ([place] Comment: Interpretive Data Percent cell count reference ranges are not reported, since discordance with absolute values may lead to misinterpretation of CBC data. Current Interpretive Data was last revised on 2017. Blood 11/02/2023 10:5 6 AM CDT 11/02/2023 11:11 AM CDT us Shalom Lopez MD LAB BLOOD ORDERABLE S Final Result [facility] [place] [address] * (ABNORMAL) CBC with auto differential (11/02/2023 10:56 AM CDT) WBC 5.0 3.8 - 9.9 K/cumm Hgb 13.9 11.9 - 15.5 g/dL [facility] Hct 40.4 35.6 - 45.5 % [facility] Plt 280 150 - 400 K/cumm [facility] MPV 9.0(L) 9.1 - 12.3 fL [facility] RBC 4.41 3.90 - 5.20 M/cumm [facility] MCV 91.6 81.3 - 96.4 fL [facility] MCH 31.5 27.1 - 33.3 pg [facility] MCHC 34.4 32.3 - 35.7 g/dL [facility] RDW CV 12.5 11.1 - 14.9 % [facility] RDW SD 42.1 35.7 - 48.1 fL [facility] NRBC abs 0.00 0.00 - 0.01 K/cumm [facility] Blood 11/02/2023 10:5 6 AM CDT 11/02/2023 11:11 AM CDT us Shalom Lopez MD LAB BLOOD ORDERABLE S Final Result [facility] [place] [address] * (ABNORMAL) Comprehensive metabolic panel (11/02/2023 10:56 AM CDT) Sodium 140 135 - 145 mmol/L Potassium, pl 4.4 3.3 - 4.9 mmol/L [facility] Chloride 104 97 - 110 mmol/L [facility] CO2 28 22 - 32 mmol/L [facility] Anion gap 8 2 - 15 mmol/L [facility] BUN 18 6 - 25 mg/dL [facility] Creatinine 0.71 0.60 - 1.10 mg/dL [facility] Glucose 93 70 - 199 mg/dL [facility] Comment: Interpretive Data Fasting glucose >/= 126 mg/dl is diagnostic for diabetes. ?? Fasting is defined as no caloric intake for at least 8 hours. Fasting glucose between 100 mg/dl to 125 mg/dl is diagnostic of prediabetes. In a patient with classic symptoms of hyperglycemia or hyperglycemic crisis, a random glucose >/= 200 mg/dl is diagnostic for diabetes. In the absence of unequivocal hyperglycemia, results should be confirmed by repeat testing. The classification and Diagnosis of Diabetes Diabetes Care 2021; 46: S19-S40. Current interpretive data was last revised 2022. Calcium 9.9 8.5 - 10.3 mg/dL [facility] Bilirubin, total 0.4 0.1 - 1.2 mg/dL [facility] Protein, pl 6.9 6.5 - 8.5 g/dL [facility]) Albumin 4.3 3.5 - 5.0 g/dL [facility] Alk phos 162(H) 40 - 130 Units/L [facility] ALT 40 7 - 45 Units/L [facility] AST 34 10 - 45 Units/L [facility] Blood 11/02/2023 10:5 6 AM CDT 11/02/2023 11:11 AM CDT us Shalom Lopez MD LAB BLOOD ORDERABLE S Final Result [facility] [place] [address] * Magnesium (11/02/2023 10:55 AM CDT) Magnesium 2.3 1.4 - 2.5 mg/dL Blood 11/02/2023 10:5 5 AM CDT 11/02/2023 11:11 AM CDT us Shalom Lopez MD LAB BLOOD ORDERABLE S Final Result [facility] [address] [facility] [place] [address] documented in this encounter Visit Diagnoses Diagnosis Vertigo- Primary Dizziness and giddiness Vertigo Dizziness and giddiness Labyrinthitis, unspecified laterality Acute middle ear effusion, bilateral Labyrinthitis Acute middle ear effusion, bilateral documented in this encounter Administered Medications Inactive Administered Medications - up to 3 most recent administrations Medication Order MAR Action Action Date Dose Rate Site meclizine (ANTIVERT) tablet 25 mg 25 mg, oral, Once, On Sun11/02/23 at 1435, For 1 dose Given 11/02/2023 2:58 PM CDT 25 mg documented in this encounter Active and Recently Administered Medications Times are shown in CDT. Scheduled Medication Order 10/31/2023 11/01/2023 11/02/2023 meclizine (ANTIVERT) tablet 25 mg (COMPLETED) 25 mg, oral, Once, On Sun11/02/23 at 1435, For 1 dose 1458 (Given - Provid er: Carlos Pastor RN) documented in this encounter Orders Medications Ordered That Jacky ht Not Have Been Administered Count Last Ordered Date First Ordered Date meclizine (ANTIVERT) tablet 25 mg 1 024 documented in this encounter Care Teams Sorter Packer Relationship Specialty Start Date End Date Siva Burgos MD [address] [place] [address] PCP - General 05/15/16 Cori Arreola MD [address] [address] Referring Physician Gynecology 04/10/18 documented as of this encounter
--- OUTSIDE RECORDS SUMMARY | 2024-06-23 18:24 | XMS_ITS | Encounter Summary ---
Author Organization [facility] Address [address] [place] [address] Care Team Providers Care Quencher Operator Name Role Phone Siva Burgos MD Primary Care Provider [phone] Cori Arreola MD Unavailable [phone] Reason for Visit * Reason Comments OT Treatment * Consultation (Routine) - Pending Review Specialty Diagnoses / Procedures Referred By Contact Referred To Contact Occupational Therapy Diagnoses Unilateral primary osteoarthritis of first carpometacarpal joint, right hand Hipolito Cat MD Phone: tel:[phone] fax:[phone] [facility] Occupational Therapy [address] [place] [address] Phone: tel: fax: Referral ID Status Reason Start Date Expiration Date Visits Requested Visits Authorized [id number] Pending Review Evaluate and Treat 4 04/16/2025 24 13 Encounter Details Date Type Department Care Team (Late st Contact Info) Description 05/27/2024 1:45 PM ACCESS REPRESENTATIVE Therapy 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 She reports difficulty with vacuuming. (8 weeks, 6 days post op) Objective: No objective measurements were taken this date. Treatment Provided: MHP x's 10 minutes to increase tissue extensibility Therapist completed scar massage. Gripping exercise using purple theraputty x's 3 minutes WE/WF off of foam wedge using 1 lb dumbbell x's 10 reps x's [address]/UD off of foam wedge using 1 lb dumbbell x's 10 reps x's 2 sets Red therabar bends x's 2 minutes Red therbar bends at table top bending in 4 directions x's 4 minutes (stabilizing with right x's 2 minutes, stabilizing with left x's 2 minutes) Assessment: Patient continues to present with increased scar tissue. She has decreased ROM and strength of right hand/wrist. She has mild pain this date and feels she has been doing too much with her hand. Her orthosis was discharged at her last MD appointment. Per patient she does not need to return to MD unless needed. She tolerated light strengthening activities this date. She verbalized understanding of continuation of HEP. Patient would benefit from continued OT services. ST) [...] flexion to 65 degrees by 6 weeks (05/29/24),n Plan: Patient to return to therapy to continue plan of care. Start Time: 1:50 PM End Time: 2:40 PM Laly Núñez OTR/L SS REPRESENTATIVE documented in this encounter Plan of Treatment Not on file documented as of this encounter Visit Diagnoses Diagnosis Unilateral primary osteoarthritis of first carpometacarpal joint, right hand- Primary documented in this encounter Care Teams Quencher Operator Relationship Specialty Start Date End Date Siva Burgos MD [address] [place] [address] PCP - General 05/15/16 Cori Arreola MD [address] [address] Referring Physician Gynecology 04/10/18 documented as of this encounter
--- OUTSIDE RECORDS SUMMARY | 2024-06-23 18:24 | XMS_ITS | Encounter Summary ---
Author Organization [facility] Address [address] [place] [address] Care Team Providers Care Table Setter Name Role Phone Siva Burgos MD Primary Care Provider [phone] Cori Arreola MD Unavailable [phone] Reason for Visit * Reason Comments OT Treatment * Consultation (Routine) - Pending Review Specialty Diagnoses / Procedures Referred By Contact Referred To Contact Occupational Therapy Diagnoses Unilateral primary osteoarthritis of first carpometacarpal joint, right hand Hipolito Cat MD Phone: tel:[phone] fax:[phone] [facility] Occupational Therapy [address] [place] [address] Phone: tel: fax: Referral ID Status Reason Start Date Expiration Date Visits Requested Visits Authorized [id number] Pending Review Evaluate and Treat 4 04/16/2025 24 13 Encounter Details Date Type Department Care Team (Late st Contact Info) Description 04/29/2024 1:00 PM ASSISTANT PROFESSOR OF NURSING Therapy [facility] Occupational Therapy [address] [place] [address] Laly Núñez, OT [address] [place] [address] [place] [address] Unilateral primary osteoarthritis of first carpometacarpal joint, [...] file Legal Sex Female 9:53 AM ASSISTANT PROFESSOR OF NURSING Gender Identity Not on file Sexual Orientation Not on file documented as of this encounter Progress Notes * Laly Núñez, OT - 04/29/2024 1:00 PM CST Occupational Therapy Visit OT Daily Treatment Note Luciana Yost 1975 Subjective: Pain: 0/10 Patient states she accidentally caught her thumb the other day and it did hurt for awhile after that. Objective: No objective measurements were taken this date. Treatment Provided: MHP x's 10 minutes to increase tissue extensibility Educated patient on scar massage, issued small piece of dycem Educated patient on edema management Bead transfer activity between containers for increased WE/WF x's 3 minutes Small peg activity (making an O ) Small peg activity (thumb to SF) Wrist oil pipe inspector x's 3 minutes Silver ball manipulation x's 3 minutes Bead transfer on string sing 0.5 cm beads x's 3 sets Small cone twists x's 60 twists Assessment: Patient presents with decreased ROM of [...] to continue plan of care. Start Time: 1:10 PM End Time: 1:55 PM Laly Núñez OTR/L STANT PROFESSOR OF NURSING documented in this encounter Plan of Treatment Not on file documented as of this encounter Visit Diagnoses Diagnosis Unilateral primary osteoarthritis of first carpometacarpal joint, right hand- Primary documented in this encounter Care Teams Table Setter Relationship Specialty Start Date End Date Siva Burgos MD [address] [place] [address] PCP - General 05/15/16 Cori Arreola MD [address] [place] [address] Referring Physician Gynecology 04/10/18 documented as of this encounter
--- OUTSIDE RECORDS SUMMARY | 2024-06-23 18:24 | XMS_ITS | Encounter Summary ---
Author Organization [facility] Healthcare Address [address] [place] [address] Care Team Providers Care Talent Sourcer Name Role Phone Siva Burgos MD Primary Care Provider [phone] Cori Arreola MD Unavailable [phone] Reason for Referral * Diagnostic Imaging (Routine) - Closed Specialty Diagnoses / Procedures Referred By Travis t Referred To Contact Diagnoses Ovarian cyst, right Procedures US Pelvis W EndovaginCori Ray MD [address] [place] [address] Phone: tel: fax: [address] [address] Referral ID Status Reason Start Date Expiration Date Visits Re quested Visits Authorized [id number] Closed 12/31/2023 01/29/2025 1 1 Reason for Visit * Diagnostic Imaging (Routine) - Closed Specialty Diagnoses / Procedures Referred By Travis t Referred To Contact Diagnoses Ovarian cyst, right Procedures US Pelvis W DarlinevaginCori Ray MD [address] [place] [address] Phone: tel: fax: [address] [address] Referral ID Status Reason Start Date Expiration Date Visits Re quested Visits Authorized [id number] Closed 12/31/2023 01/29/2025 1 1 Encounter Details Date Type Department Care Team (Latest Contact Info) Description 02/05/2024 8:57 AM CDT - 02/05/2024 11:59 PM CDT Hospital Encounter [facility] [address] [place] [address] Ovarian cyst, right Discharge Disposition: Discharge to home or self [...] on file 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 Gender Identity Not on file Sexual Orientation [...] 6 (six) hours as needed for pain [id number] mg capsuleIndicatio ns:stop 5 days before surgery [...] Discharge Disposition Disposition Code Departure Means Destination Discharge to home or self care documented in this encounter Plan of Treatment Not on file documented as of this encounter Procedures Procedure Name Priority Date/Time Associated Diagnosis Comments US PELVIS W ENDOVAGINAL Schedule Routine, Read Routine (OP Routine) 02/05/2024 10:35 AM CDT Ovarian cyst, right documented in this encounter Results * US Pelvis W Endovaginal (02/05/2024 10:35 AM CDT) Anatomical Region Laterality Modality Pelvis N/A Ultrasound 02/06/2024 8:36 AM CDT Narrative 02/06/2024 8:40 AM CDT EXAM DESCRIPTION: ?? US PELVIS W ENDOVAGINAL REASON FOR STUDY: ?? Follow-up right ovarian cyst. TECHNIQUE: Grayscale ultrasound of the pelvic contents was performed with ?? transabdominal and transvaginal ??transducer. ?? COMPARISON: Pelvic sonogram dated 09/25/2023. FINDINGS: UTERUS: The uterus is retroverted, and measures approximately 3.5 x 4.5 x 6.9 cm. ??No focal uterine lesions are identified on these images. ENDOMETRIUM: The endometrium measures ??9 mm ??in thickness. ??This is within normal limits. RIGHT OVARY: A cystic lesion is identified in the right adnexal region, measuring 5.7 x 5.2 x 7.5 cm. ??There are minimal internal echogenic reflectors, but no septations or mural nodules are present. ??The right ovary is not identified. LEFT OVARY: The left ovary measures ??0.8 x 1.4 x 1.6 ??cm. ??There is documentation of color Doppler flow in the left ovary. ??Arterial and venous waveforms are seen on pulsed wave Doppler. ??The left ovary appears unremarkable. PELVIC FLUID: ?? There is no evidence of free fluid in the pelvis. OTHER: ?? No other significant findings. IMPRESSION: Cystic lesion in the right adnexal region, measuring 5.7 x 5.2 x 7.5 cm. There are minimal internal echogenic reflectors, but no septations or mural nodules are present. The right ovary is not identified. This may represent a benign ovarian cyst, but given the size of the lesion, further characterization with pelvic MRI should be considered. Unremarkable sonographic appearance of the left ovary. Other findings as described above. THIS IS AN ELECTRONICALLY VERIFIED FINAL REPORT 02/06/2024 8:40 AM - Electronically signed by ??Barrera Pabon M.D. RL: DAVID D: ??02/06/2024 8:40 AM T: ??02/06/2024 8:40 AM Report ID: [id number] Reading Location: ??[id number] Procedure Note Barrera Sullivan MD - 02/06/2024 EXAM DESCRIPTION: US PELVIS W ENDOVAGINAL REASON FOR STUDY: Follow-up right ovarian cyst. TECHNIQUE: Grayscale ultrasound of the pelvic contents was performed with transabdominal and transvaginal transducer. COMPARISON: Pelvic sonogram dated 09/25/2023. FINDINGS: UTERUS: The uterus is retroverted, and measures approximately 3.5 x 4.5 x6.9 cm. No focal uterine lesions are identified on these images. ENDOMETRIUM: The endometrium measures 9 mm in thickness. This is within normal limits. RIGHT OVARY: A cystic lesion is identified in the right adnexal region, measuring 5.7 x 5.2 x 7.5 cm. There are minimal internal echogenic reflectors, but no septations or mural nodules are present. The rightovary is not identified. LEFT OVARY: The left ovary measures 0.8 x 1.4 x 1.6 cm. There is documentation of color Doppler flow in the left ovary. Arterial andvenous waveforms are seen on pulsed wave Doppler. The left ovary appears unremarkable. PELVIC FLUID: There is no evidence of free fluid in the pelvis. OTHER: No other significant findings. IMPRESSION: Cystic lesion in the right adnexal region, measuring 5.7 x 5.2 x 7.5 cm. There are minimal internal echogenic reflectors, but no septations ormural nodules are present. The right ovary is not identified. This may representa benign ovarian cyst, but given the size of the lesion, further characterization with pelvic MRI should be considered. Unremarkable sonographic appearance of the left ovary. Other findings as described above. THIS IS AN ELECTRONICALLY VERIFIED FINAL REPORT 02/06/2024 8:40 AM - Electronically signed by Barrera Pabon M.D. RL: DAVID Report ID: [id number] Reading Location: [place] [address] us Cori Arreola MD IM US PROCEDURES Final Result documented in this encounter Visit Diagnoses Diagnosis Ovarian cyst, right Other and unspecified ovarian cyst documented in this encounter Additional Health Concerns Infection Onset Date Last Indicated Resolved Time COVID: Recovered Comment:Added based on recent COVID infection. 01/13/2024 02/05/2024 04/12/2024 3:05 AM C DT documented as of this encounter Care Teams Talent Sourcer Relationship Specialty Start Date End Date Siva Burgos MD [address] [place] [address] PCP - General 05/15/16 Cori Arreola MD [address] [address] Referring Physician Gynecology 04/10/18 documented as of this encounter
--- OUTSIDE RECORDS SUMMARY | 2024-06-23 18:24 | XMS_ITS | Encounter Summary ---
Author Organization [facility] Healthcare Address [address] [place] [address] Care Team Providers Care Slot Service Specialist Name Role Phone Siva Burgos MD Primary Care Provider [phone] Cori Arreola MD Unavailable [phone] Reason for Visit * Reason Comments Cold Symptoms Body aches started o n Tue, then sinus pressure and drainage, cough, tue had fever, taking ibuprofen Encounter Details Date Type Department Care Team (Late st Contact Info) Description 01/03/2024 11:30 AM CDT Office Visit [facility] [place] [address] [place] [phone] Leti Omer NP [address] [place] [address] COVID-19 (Primary Dx); Acute suppurative otitis media of right ear without spontaneous rupture of tympanic membrane, recurrence not specified Social History Tobacco Use Types Packs/Day Years [...] on file 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 Gender Identity Not on file Sexual Orientation Not on file documented as of this encounter Last Filed Vital Signs Vital Sign Reading Time Taken Comments Blood Pressure 100/76 01/03/2024 11:36 AM CDT Pulse 96 01/03/2024 11:36 AM CDT Temperature 36.8 ??C (98.2 ??F) 01/03/2024 11:36 AM C DT Respiratory Rate 16 01/03/2024 11:36 AM CDT Oxygen Saturation 98% 01/03/2024 11:36 AM CDT Inhaled Oxygen Concentration - - Weight 58.5 kg (129 lb) 01/03/2024 11:36 AM CDT Height 160 cm (5' 3 ) 01/03/2024 11:36 AM CDT Body Mass Index 22.85 01/03/2024 11:36 AM CDT documented in this encounter Patient Instructions * Patient Instructions* Leti Omer NP - 01/03/2024 11:30 AM CDT Recommendations and Information The main treatment for respiratory infections of any kind is to rest, eat healthy, and drink plentyof fluids. Cold symptoms will likely last anywhere from 7-10 days with symptoms feeling much worse on days 3-5. Antibiotic medications do not cure a cold nor do antibiotic medications help to shortenthe symptoms of viral illness. The following may help you feel better: Over the counter antihistamine such as loratadine (Claritin) or cetirizine (Zyrtec) to reduce secretions. The D formula includes pseudoephedrine and can be helpful as a decongestant but should not be used if you have a history of high blood pressure. Tessalon if prescribed for cough. Albuterol inhaler if prescribed for shortness of breath, cough, or wheezing. Use you albuterol inhaler or nebulizer every 4 hours for the next 48 hours, then every 4-6 hours as needed. Don't smoke and avoid second hand smoke. Suck on cough drops or hard candies to soothe a dry or sore throat. Cough drops won't stop your cough, but they may make your throat feel better. Over the counter loratadine (Claritin) or cetirizine (Zyrtec) to reduce secretions. Mucinex to thin secretions Breathe moist air from a humidifier, a hot shower, or a sink filled with hot water. The heat and moisture can help keep mucus in your airways moist so you can cough it out easily. Use nonprescription medicine, such as acetaminophen, ibuprofen, or aspirin, to relieve fever and body aches. Don't give aspirin to anyone younger than age 20. Rest more than usual. Drink plenty of fluids so that you do not become dehydrated and to keep mucous thin. Use an rxnb-uup-elcwshm cough medicine such as Delsym or Robitussin. (Cough medicines may not be safe for young children or for people who have certain health problems.) Cough suppressants may help you to stop coughing. Expectorants, such as Mucinex, can help you bring up mucus when you cough. Follow up with primary care physician in 1 week, or sooner if symptoms worsen. If you experience worsening shortness of breath or fever that do not improve with Tylenol/Motrin, go to the Emergency Room. documented in this encounter Ordered Prescriptions Prescription Sig Dispense Quantity Refills Last Filled Start Date End Date amoxicillin-clavul anate (Augmentin) 875-125 mg per tabletIndications: Acute suppurative otitis media of right ear without spontaneous rupture of tympanic membrane, recurrence not specified Take 1 tablet (875 mg of amoxicillin total) by mouth 2 (two) times a day for 10 days 20 tablet 01/03/2024 documented in this encounter Progress Notes * Leti Omer NP - 01/03/2024 11:30 AM CDT Images from the original note were not included. Subjective/Objective Patient ID: Luciana Yost is a 48 y.o. female. Chief Complaint Cold Symptoms (Body aches started on Tue, then sinus pressure and drainage, cough, tue had fever, taking ibuprofen ) Patient presents to convenient care for sinus congestion, sinus pressure, nasal drainage, right earpain, body aches, and fever x2 days. She denies any known exposure to COVID. She has taken OTC ibuprofen and Tylenol for her symptoms. She denies any chest pain or shortness of breath. Review of Systems All systems reviewed and are negative or non contributory for this patient's presentation today other than as stated in the HPI. Physical Exam Vitals reviewed. Constitutional: General: She is not in acute distress. Appearance: Normal appearance. She is well-developed. She is not ill-appearing. HENT: Head: Normocephalic. Right Ear: Ear canal and external ear normal. Tympanic membrane is erythematous and bulging. Left Ear: Tympanic membrane, ear canal and external ear normal. Nose: No congestion or rhinorrhea. Right Sinus: No maxillary sinus tenderness or frontal sinus tenderness. Left Sinus: No maxillary sinus tenderness or frontal sinus tenderness. Mouth/Throat: Lips: [place]. Mouth: Mucous membranes are moist. Pharynx: Oropharynx is clear. Posterior oropharyngeal erythema (mild) present. Eyes: General: Right eye: No discharge. Left eye: No discharge. Conjunctiva/sclera: Conjunctivae normal. Cardiovascular: Rate and Rhythm: Normal rate and regular rhythm. Pulmonary: Effort: Pulmonary effort is normal. No respiratory distress. Breath sounds: Normal breath sounds and air entry. Musculoskeletal: General: Normal range of motion. Cervical back: Neck supple. Lymphadenopathy: Head: Right side of head: No tonsillar adenopathy. Left side of head: No tonsillar adenopathy. Cervical: No cervical adenopathy. Skin: General: Skin is warm and dry. Findings: No rash. Neurological: Mental Status: She is alert and oriented to person, place, and time. Mental status is at baseline. Psychiatric: Attention and Perception: Attention normal. Mood and Affect: Mood normal. Behavior: Behavior normal. Behavior is cooperative. Thought Content: Thought content normal. Judgment: Judgment normal. Vitals: 01/03/24 1136 BP: 100/76 BP Location: Right arm Patient Position: Sitting Pulse: 96 Resp: 16 Temp: 36.8 ??C (98.2 ??F) TempSrc: Oral SpO2: 98% Weight: 58.5 kg (129 lb) Height: 160 cm (5' 3 ) Assessment/Plan Diagnoses and all orders for this visit: COVID-19 (Primary) - COVID-19 POC --COVID positive --Discussed with patient that symptoms are viral --Reviewed OTC medications to help with symptoms --Return to clinic or follow up with PCP if symptoms persist longer than 10 days or sooner if symptoms worsen --Go to the ER for chest pain, shortness for breath, or fevers that do not improve with antipyretics Acute suppurative otitis media of right ear without spontaneous rupture of tympanic membrane, recurrence not specified - amoxicillin-clavulanate (Augmentin) 875-125 mg per tablet; Take 1 tablet (875 mg of amoxicillin total) by mouth 2 (two) times a day for 10 days --Augmentin as prescribed for AOM --Tylenol/Motrin as needed for pain --Apply warm compresses to ear as needed for pain --Return to clinic or follow-up with PCP if symptoms persist after completion of antibiotics or sooner if symptoms worsen Recent Results (from the past 4 hour(s)) COVID-19 POC Collection Time: 01/03/24 11:53 AM Specimen: Nasal Result Value Ref Range COVID-19 Ag POC (BD Veritor) Positive (A) Presumptive Negative, Invalid Patient Education: Disposition Treatment plan including expectations, follow up, and return precautions discussed with patient/parent, verbalizes understanding. Medication dosage, use, and potential adverse reactions discussed with patient/parent. Advised to follow up with PCP if symptoms do not resolve as expected or sooner if condition worsens. Signs/symptoms warranting ER evaluation reviewed. Patient and/or guardian was given an opportunity to ask questions, questions answered. Leti Omer NP documented in this encounter Plan of Treatment Not on file documented as of this encounter Procedures Procedure Name Priority Date/Time Associated Diagnosis Comments COVID-19 POC Routine 01/03/2024 11:53 AM CDT COVID-19 documented in this encounter Results * (ABNORMAL) COVID-19 POC (01/03/2024 11:53 AM CDT) COVID-19 Ag POC (BD Veritor) Positive( A) Presumptive Negative, Invalid [facility] Nasal 01/03/2024 11:5 3 AM CDT Leti Omer COMPUTER SYSTEMS ADMINISTRATOR POINT OF CARE TEST ORDERABLES Fi nal Result [facility] [address] [place] [address] documented in this encounter Visit Diagnoses Diagnosis COVID-19- Primary Acute suppurative otitis media of right ear without spontaneous rupture of tympanic membrane, recurrence not specified documented in this encounter Additional Health Concerns Infection Onset Date Last Indicated Resolved Time COVID: Suspected 01/03/2024 01/03/2024 01/03/2024 11:53 AM CDT COVID19 01/03/2024 01/03/2024 01/13/2024 3:05 AM CDT documented as of this encounter Care Teams Slot Service Specialist Relationship Specialty Start Date End Date Siva Burgos MD [address] [place] [address] PCP - General 05/15/16 Cori Arreola MD [address] [address] Referring Physician Gynecology 04/10/18 documented as of this encounter
--- OUTSIDE RECORDS SUMMARY | 2024-06-23 18:24 | XMS_ITS | Encounter Summary ---
Author Organization [facility] Address [address] [place] [address] Care Team Providers Care Art Museum Docent Name Role Phone Siva Burgos MD Primary Care Provider [phone] Cori Arreola MD Unavailable [phone] Reason for Visit * Reason Comments OT Treatment * Consultation (Routine) - Pending Review Specialty Diagnoses / Procedures Referred By Contact Referred To Contact Occupational Therapy Diagnoses Unilateral primary osteoarthritis of first carpometacarpal joint, right hand Hipolito Cat MD Phone: tel:[phone] fax:[phone] [facility] Occupational Therapy [address] [place] [address] Phone: tel: fax: Referral ID Status Reason Start Date Expiration Date Visits Requested Visits Authorized [id number] Pending Review Evaluate and Treat 4 04/16/2025 24 13 Encounter Details Date Type Department Care Team (Late st Contact Info) Description 04/21/2024 10:30 AM BUS PERSON Therapy [facility] Occupational Therapy [address] [place] [id number] Laly Núñez, OT [address] [place] [address] [place] [address] Unilateral primary osteoarthritis of first carpometacarpal joint, [...] on file Legal Sex Female 9:53 AM BUS PERSON Gender Identity Not on file Sexual Orientation Not on file documented as of this encounter Progress Notes * Laly Núñez, OT - 04/21/2024 10:30 AM CST Occupational Therapy Visit OT Daily Treatment Note Luciana Yost 1975 Subjective: Pain: 0/10 Patient reports stiffness and tightness in her right thumb and wrist. Objective: No objective measurements were taken this date. Treatment Provided: MHP x's 10 minutes to increase tissue extensibility Thumb flexion/extension x's 10 reps Educated patient on RAB and PAB - issued for HEP Patient completed AROM RAB and PAB x's 10 reps Silver ball manipulation x's 3 minutes Alphabet ball x's 1 set Small wrist organ pipe voicer with no added weight x's 5 reps Ball exercises for WE/WF x's 3 minutes Assessment: Patient presents with decreased ROM of [...] therapy to continue plan of care. Start scar massage. Start Time: 10:30 AM End Time: 11:15 AM BONNIE Del [place]/L PERSON documented in this encounter Plan of Treatment Not on file documented as of this encounter Visit Diagnoses Diagnosis Unilateral primary osteoarthritis of first carpometacarpal joint, right hand- Primary documented in this encounter Care Teams Art Museum Docent Relationship Specialty Start Date End Date Siva Burgos MD [address] [place] [address] PCP - General 05/15/16 Cori Arreola MD [address] [address] Referring Physician Gynecology 04/10/18 documented as of this encounter
--- OUTSIDE RECORDS SUMMARY | 2024-06-23 18:24 | XMS_ITS | Encounter Summary ---
Author Organization [facility] Address [address] [place] [address] Care Team Providers Care Printing Manager Name Role Phone Siva Burgos MD Primary Care Provider [phone] Cori Arreola MD Unavailable [phone] Reason for Referral * (Routine) - Closed Specialty Diagnoses / Procedures Referred By Travis elizabeth Referred To Contact Diagnoses Lateral epicondylitis of left elbow Procedures Epicondylitis injection: L elbow Cherie Das MD Phone: tel: fax: [facility] Referral ID Status Reason Start Date Expiration Date Visits Re quested Visits Authorized [id number] Closed 02/24/2020 03/25/2021 1 1 Reason for Visit * Reason Comments Pain Encounter Details Date Type Department Care Team (Latest Contact Info) Description 02/24/2020 10:30 AM CDT Office Visit [facility] Orthopedics and Sports Medicine [address] [place] [phone] Cherie Das MD [address] [place] [place] [id number] Lateral epicondylitis of left elbow (Primary Dx); De Quervain's disease (radial styloid tenosynovitis) Social History Tobacco Use Types Packs/Day Years Used Date Smoking Tobacco: Never Smokeless Tobacco: Never Alcohol Use Standard Drinks/Week Comments Yes 0 (1 standard drink = 0.6 oz pur e alcohol) Comments No Sex and Gender Information Value Date Recorded Sex Assigned at Not on file Legal 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 Gender Identity Not on file Sexual Orientation Not on file documented as of this encounter Last Filed Vital Signs Vital Sign Reading Time Taken Comments Blood Pressure 103/71 02/24/2020 10:42 AM CDT Pulse 66 02/24/2020 10:42 AM CDT Temperature 36.6 ??C (97.9 ??F) 02/24/2020 10:42 AM C DT Respiratory Rate - - Oxygen Saturation - - Inhaled Oxygen Concentration - - Weight 55.3 kg (122 lb) 02/24/2020 10:42 AM CDT Height 158.8 cm (5' 2.5 ) 02/24/2020 10:42 AM CD T Body Mass Index 21.96 02/24/2020 10:42 AM CDT documented in this encounter Progress Notes * Cherie Das MD - 02/24/2020 10:30 AM CDTAssociated Order(s): Epicondylitis injection: L elbow Post-Procedure Diagnose(s): Lateral epicondylitis of left elbow Images from the original note were not included. FOLLOW UP VISIT Subjective CHIEF COMPLAINT She had concerns including Pain of the Left Elbow. HISTORY OF PRESENT ILLNESS Mrs. Yost is a well appearing 44yo woman with a pleasant affect in NAD who presents today for f/uleft lateral epicondylitis and de Quervain's tenosynovitis. She has been in OT and feels the pain is the same. She is doing the HEP as given by OT. Pain is sharp, aching, moderate, continuous, +nightpain. Work, repetative use makes the pain worse, rest, massaging the area make the pain better. 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 Has taken ibuprofen as needed, applies ice. Denies numbness and tingling. MEDICATIONS She has a current medication list which includes the following prescription(s): ascorbic acid, ibuprofen, and [id number]-ast. REVIEW OF SYSTEMS Review of Systems Constitutional: Negative. HENT: Negative. Eyes: Negative. Respiratory: Negative. Cardiovascular: Negative. Gastrointestinal: Negative. Genitourinary: Negative. Musculoskeletal: Negative. Skin: Negative. Neurological: Negative. Psychiatric/Behavioral: Negative. All other systems reviewed and are negative. Objective PHYSICAL EXAM BP 103/71 Pulse 66 Temp 36.6 ??C (97.9 ??F) Ht 158.8 cm (5' 2.5 ) Wt 55.3 kg (122 lb) BMI21.96 kg/m?? Left elbow Inspection The patient has normal inspection of the left elbow. Palpation Tenderness: present. The tenderness is location in the lateral epicondyle area(s). Range of motion The patient has normal range of motion of the left elbow. The patient has pain with range of motion. Stability The patient has normal stability of the left elbow. Strength Elbow extension: 3/5 Elbow flexion: 4/5 Neurovascular The patient has normal vascular on the left side of their body. The patient has normal sensation on the left side of their body. Tests negative Right hand/wrist The patient has normal inspection, palpation, range of motion, strength, and stability of the righthand and wrist. Left hand/wrist Inspection The patient has normal inspection of the left hand and wrist. Palpation Tenderness: present. The tenderness is located in the radial area and first compartment. Range of motion Index: MP: The patient has pain with range of motion of the left wrist. The patient has normal range of motion of the left fingers. The patient has pain with range of motion fo the left fingers. Stability The patient has nomal stability of the left hand and wrist. Strength Thumb extension: 4/5 Thumb flexion: 4/5 Thumb abduction: 4/5 Thumb opposition: 4/5 Finger extension: 4/5 Finger flexion: 4/5 Wrist extension: 4/5 Wrist flexion: 4/5 Interossei: 4/5 APB: 4/5 Outside Dealer Sales Representative: 4/5 DIP flexion: not tested Neurovascular The patient has normal vascular on the left side of their body. The patient has normal sensation. REVIEW OF X-RAYS/STUDIES/LABS Assessment/Plan Luciana was seen today for pain. Diagnoses and all orders for this visit: De Quervain's disease (radial styloid tenosynovitis) Lateral epicondylitis of left elbow Epicondylitis injection: L elbow Performed by: Cherie Das MD Authorized by: Cherie Das MD Epicondylitis Injection: Consent Given by: Patient Site marked: the procedure site was marked Verbal consent obtained?: Yes Supporting Documentation: Indications: Pain Procedure Details: Condition: lateral epicondylitis Site: L elbow CLEAN TECHNIQUE PREP FOR INJECTIONS: aseptic technique with chloraprep. Needle Size: 22 G Approach: Lateral Ultrasound guidance: No Medications: 1 mL lidocaine 20 mg/mL (2 %); 40 mg methylPREDNISolone acetate 80 mg/mL Patient tolerance: Patient tolerated the procedure with difficulty PLAN Mrs. Yost received a steroid injection over the lateral epicondyle today. Continue OT, counterforce brace, NSAIDs x 1 week, ibuprofen OTC or Aleve. Ice for 20 minutes every 2-3 hours for the next 24-48 hours, ADLs only for the next 24-48 hours. If she is doing well after the injection she may RTCPRN. If her wrist pain persists, recommend steroid injection in the 1st dorsal compartment. She is in full understanding and in agreement with the plan, and all of her questions were answered. Cherie Das MD documented in this encounter Plan of Treatment Not on file documented as of this encounter Procedures Procedure Name Priority Date/Time Associated Diagnosis Comments TX INJECTION 1 TENDON SHEATH/LIGAMENT APONEUROSIS Routine 02/24/2020 10:30 AM CDT Lateral epicondylitis of left elbow documented in this encounter Results * TX INJECTION 1 TENDON SHEATH/LIGAMENT APONEUROSIS (02/24/2020 10:30 AM CDT) Narrative Cherie Das MD - 02/24/2020 10:30 AM CDT Cherie Das MD ? 02/24/2020 ??1:14 PM Epicondylitis injection: L elbow Performed by: Cherie Das MD Authorized by: Cherie Das MD Epicondylitis Injection: ??Consent Given by: ??Patient ??Site marked: the procedure site was marked ?Verbal consent obtained?: Yes ?? Supporting Documentation: ??Indications: ??Pain Procedure Details: ??Condition: lateral epicondylitis ?Site: ??L elbow ??CLEAN TECHNIQUE PREP FOR INJECTIONS: aseptic technique with chloraprep. ?Needle Size: ??22 G ??Approach: ??Lateral ??Ultrasound guidance: No ?Medications: ??1 mL lidocaine 20 mg/mL (2 %); 40 mg methylPREDNISolone acetate 80 mg/mL ??Patient tolerance: ??Patient tolerated the procedure with difficulty Result [facility] Cherie Das MD IN CLINIC/BEDSIDE [facility] Final Result documented in this encounter Visit Diagnoses Diagnosis Lateral epicondylitis of left elbow- Primary De Quervain's disease (radial styloid tenosynovitis) documented in this encounter Administered Medications Inactive Administered Medications - up to 3 most recent administrations Medication Order MAR Action Action Date Dose Rate Site lidocaine (XYLOCAINE) 20 mg/mL (2 %) injection 1 mL 1 mL, One-Time Injection, Starting on Sun02/24/20 at 1312, For 1 dose, Indications: Administration of Local AnesthesiaIndications:Administratio n of Local Anesthesia Given 02/24/2020 1:12 PM CDT 1 mL methylPREDNISolone acetate (DEPO-medrol) injection 40 mg 40 mg, intra-articular, One-Time Injection, Starting on Sun02/24/20 at 1312, For 1 doseIndications:Lateral epicondylitis of left elbow Given 02/24/2020 1:12 PM CDT 40 mg documented in this encounter Care Teams Printing Manager Relationship Specialty Start Date End Date Siva Burgos MD [address] [place] [address] PCP - General 05/15/16 Cori Arreola MD [address] [address] Referring Physician Gynecology 04/10/18 documented as of this encounter
--- OUTSIDE RECORDS SUMMARY | 2024-06-23 18:24 | XMS_ITS | Encounter Summary ---
Author Organization [facility] Address [address] [place] [address] Care Team Providers Care Food Prep Worker Name Role Phone Siva Burgos MD Primary Care Provider [phone] Cori Arreola MD Unavailable [phone] Reason for Visit * Reason Comments Earache Ear pain began 1 day ago. She feels pressure and a stabbing pain.Sinus congestion also began 1 day ago. Pt is not concerned for Covid or flu with her Sx. 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 Gender Identity Not on file Sexual Orientation Not on file documented as of this encounter Last Filed Vital Signs Vital Sign Reading Time Taken Comments Blood Pressure 100/66 04/08/2023 8:57 AM CDT Pulse 83 04/08/2023 8:57 AM CDT Temperature 36.6 ??C (97.9 ??F) 04/08/2023 8:57 AM CD T Respiratory Rate 18 04/08/2023 8:57 AM CDT Oxygen Saturation 96% 04/08/2023 8:57 AM CDT Inhaled Oxygen Concentration - - Weight 58.5 kg (129 lb) 04/08/2023 8:57 AM CDT Height 160 cm (5' 3 ) 04/08/2023 8:57 AM CDT Body Mass Index 22.85 04/08/2023 8:57 AM CDT documented in this encounter Patient Instructions * Patient Instructions* Melina Auguste, HYDRO OPERATOR - 04/08/2023 9:00 AM CDT If you have no improvement or worsening of your symptoms, please follow up with your Primary Care Provider, Convenient Care and or Emergency Room. I strive to provide you with EXCELLENT service. You may receive a survey after your visit today. If you cannot rate your experience as EXCELLENT, please let us know how we can improve and better meet your needs. Thank you for choosing [facility]! It was my pleasure to see you today, I hope you feel better soon! Melina Auguste COMMUNITY DEVELOPMENT AIDE Middle Ear Infection (Otitis Media): Otitis media is an infection behind the eardrum. It is usually caused by a cold. The tiny tube thatdrains the middle ear pocket is swollen. It cannot drain fluid and air, so this fluid backs up in the middle ear pocket and becomes infected. The treatment is antibiotics. If your eardrum has ruptured, oral antibiotics may also be prescribed. Medication Recommendations: Please take all prescriptions as prescribed. Complete them even though the symptoms might go away in a few days. This is necessary to kill all the germs. Take Tylenol (acetaminophen) or Advil/Motrin (ibuprofen) as needed for pain. Please follow package directions. Do not use aspirin for children. Take an antihistamine like Claritin, Zyrtec, or Marianela daily and/or Flonase intranasally daily. This will help dry the fluid possibly causing the ear infection. Home Recommendations: Apply warm compresses to the affected ear can also be comforting. Push fluids. Sleep with your head of bed elevated to encourage drainage. Chew gum or suck on lozenges/candy to encourage your eustachian tube to drain. See your doctor for a re-check visit in 1 week or as soon as possible if not better. If your eardrum has ruptured, you will need to follow up with PCP for recheck in 1 week and possibly have an ENT referral. Call your doctor or return to the emergency department if worse or: 1. Pain increases. 2. Drainage begins coming from the ear. 3. Fever is uncontrolled with alternating Tylenol/Motrin. 4. You have completed your antibiotics and continue to have ear pain/fever. No further prescriptions or refills will be given by phone without another evaluation. * Attachments The following attachments cannot be sent through Care Everywhere. * Ear Infection (AfterCare(R) Instructions(ER/ED)) (Guinean) documented in this encounter Ordered Prescriptions Prescription Sig Dispense Quantity Refills Last Filled Start Date End Date amoxicillin (AMOXIL) 875 mg tabletIndications: Acute otitis media, bilateral Take 1 tablet (875 mg total) by mouth 2 (two) times a day for 10 days 20 tablet 04/08/2023 04/18/2023 documented in this encounter Progress Notes * Melina Auguste NP - 04/08/2023 9:00 AM CDT Images from the original note were not included. Subjective/Objective Patient ID: Luciana Yots is a 47 y.o. female. Chief Complaint Earache (Ear pain began 1 day ago. She feels pressure and a stabbing pain.//Sinus congestion also began 1 day ago. Pt is not concerned for Covid or flu with her Sx.) 47-year-old female patient presents today with complaints of bilateral ear pain for 1 day. Patient also reports sinus congestion. Denies any fever. Patient reports pressure and stabbing pain to her bilateral ears, right greater than left. Earache Associated symptoms include coughing, ear discharge and rhinorrhea. Pertinent negatives include no abdominal pain, headaches or rash. Review of Systems HENT: Positive for ear discharge, ear pain and rhinorrhea. Respiratory: Positive for cough. Gastrointestinal: Negative for abdominal pain. Skin: Negative for rash. Neurological: Negative for headaches. Physical Exam Constitutional: Appearance: Normal appearance. She is normal weight. She is not ill-appearing. HENT: Head: Normocephalic. Right Ear: External ear normal. Tenderness present. No drainage or swelling. A middle ear effusion is present. Tympanic membrane is injected, erythematous and bulging. Tympanic membrane is not perforated or retracted. Left Ear: External ear normal. Tenderness present. No drainage or swelling. A middle ear effusion is present. Tympanic membrane is injected, erythematous and bulging. Tympanic membrane is not perforated or retracted. Nose: Nose normal. Right Turbinates: Enlarged. Left Turbinates: Enlarged. Mouth/Throat: Mouth: Mucous membranes are moist. Pharynx: Oropharynx is clear. Eyes: Pupils: Pupils are equal, round, and reactive to light. Cardiovascular: Rate and Rhythm: Normal rate and regular rhythm. Pulses: Normal pulses. Heart sounds: Normal heart sounds. Pulmonary: Effort: Pulmonary effort is normal. Breath sounds: Normal breath sounds. Musculoskeletal: General: Normal range of motion. Cervical back: Normal range of motion. Skin: General: Skin is warm and dry. Capillary Refill: Capillary refill takes less than 2 seconds. Neurological: General: No focal deficit present. Mental Status: She is alert and oriented to person, place, and time. Mental status is at baseline. Psychiatric: Mood and Affect: Mood normal. Behavior: Behavior normal. Thought Content: Thought content normal. Judgment: Judgment normal. Vitals: 04/08/23 0857 BP: 100/66 Pulse: 83 Resp: 18 Temp: 36.6 ??C (97.9 ??F) TempSrc: Temporal SpO2: 96% Weight: 58.5 kg (129 lb) Height: 160 cm (5' 3 ) No results found. Past Medical History: Diagnosis Date Arthritis Current Outpatient Medications: ascorbic acid (VITAMIN C) 500 mg tablet,chewable, Take 1 tablet by mouth 2 times daily until finished, Disp: 60 tablet/chew tab, Rfl: 0 hydroxychloroquine (PLAQUENIL) 200 mg tablet, Take 1 tablet (200 mg total) by mouth daily, Disp: , Rfl: ibuprofen (ibuprofen) 200 mg tab/cap, Take by mouth every 6 (six) hours as needed for pain, Disp: ,Rfl: asxuj-kx-4-rbn-vxb-vqiszmq-ast 1,323-287-80-80 mg capsule, Take by mouth., Disp: , Rfl: meloxicam (MOBIC) 15 mg tablet, Take 1 tablet (15 mg total) by mouth daily, Disp: , Rfl: amoxicillin (AMOXIL) 875 mg tablet, Take 1 tablet (875 mg total) by mouth 2 (two) times a day for 10 days, Disp: 20 tablet, Rfl: 0 No Known Allergies Social History Tobacco Use Smoking status: Never Smokeless tobacco: Never Substance and Sexual Activity Drug use: No Sexual activity: Not on file Alcohol Use: Heavy Drinker (02/06/2023) AUDIT-C Frequency of Alcohol Consumption: 2-4 times a month Average Number of Drinks: 1 or 2 Frequency of Binge Drinking: Weekly Past Surgical History: Procedure Laterality Date CHOLECYSTECTOMY 2017 HEMORRHOID SURGERY Hemorrhoidectomy OTHER SURGICAL HISTORY 2017 Single Site DaVinci Cholecystectomy Procedures Assessment/Plan No results found for this or any previous visit (from the past 4 hour(s)). Diagnoses and all orders for this visit: Acute otitis media, bilateral (Primary) - amoxicillin (AMOXIL) 875 mg tablet; Take 1 tablet (875 mg total) by mouth 2 (two) times a day for10 days Patient Education: Middle Ear Infection (Otitis Media): Otitis media is an infection behind the eardrum. It is usually caused by a cold. The tiny tube thatdrains the middle ear pocket is swollen. It cannot drain fluid and air, so this fluid backs up in the middle ear pocket and becomes infected. The treatment is antibiotics. If your eardrum has ruptured, oral antibiotics may also be prescribed. Medication Recommendations: Please take all prescriptions as prescribed. Complete them even though the symptoms might go away in a few days. This is necessary to kill all the germs. Take Tylenol (acetaminophen) or Advil/Motrin (ibuprofen) as needed for pain. Please follow package directions. Do not use aspirin for children. Take an antihistamine like Claritin, Zyrtec, or Marianela daily and/or Flonase intranasally daily. This will help dry the fluid possibly causing the ear infection. Home Recommendations: Apply warm compresses to the affected ear can also be comforting. Push fluids. Sleep with your head of bed elevated to encourage drainage. Chew gum or suck on lozenges/candy to encourage your eustachian tube to drain. See your doctor for a re-check visit in 1 week or as soon as possible if not better. If your eardrum has ruptured, you will need to follow up with PCP for recheck in 1 week and possibly have an ENT referral. Call your doctor or return to the emergency department if worse or: 1. Pain increases. 2. Drainage begins coming from the ear. 3. Fever is uncontrolled with alternating Tylenol/Motrin. 4. You have completed your antibiotics and continue to have ear pain/fever. No further prescriptions or refills will be given by phone without another evaluation. Disposition Treatment plan including expectations, follow up, and return precautions discussed with patient/parent, verbalizes understanding. Medication dosage, use, and potential adverse reactions discussed with patient/parent. Advised to follow up with PCP if symptoms do not resolve as expected or sooner if condition worsens. Signs/symptoms warranting ER evaluation reviewed. Patient and/or guardian was given an opportunity to ask questions, questions answered. Melina Auguste NP Cosigned by Tyrone Spring MD at 04/17/2023 8:55 AM CDT documented in this encounter Plan of Treatment Not on file documented as of this encounter Visit Diagnoses Diagnosis Acute otitis media, bilateral- Primary Unspecified otitis media documented in this encounter Historical Medications * This list may reflect changes made after this encounter. hydroxychloroquin e (PLAQUENIL) 200 mg tablet Take 1 tablet (200 mg total) by mouth daily 02/08/2023 added in this encounter Care Teams Food Prep Worker Relationship Specialty Start Date End Date Siva Burgos MD [address] [place] [address] PCP - General 05/15/16 Cori Arreola MD [address] [address] Referring Physician Gynecology 04/10/18 documented as of this encounter
--- OUTSIDE RECORDS SUMMARY | 2024-06-23 18:24 | XMS_ITS | Encounter Summary ---
Author Organization Formerly [facility] Address [address] [place] [address] Care Team Providers Care Train Clerk Name Role Phone Siva Burgos MD Primary Care Provider [phone] Cori Arreola MD Unavailable [phone] Reason for Visit * Auth/Cert (Routine) Specialty Diagnoses / Procedures Referred By Contac t Referred To Contact Diagnoses Special screening for malignant neoplasms, colon Special screening for malignant neoplasms, colon [Z12.11] Procedures OK COLONOSCOPY FLX DX W/COLLJ SPEC WHEN PFRMD COLONOSCOPY Referral ID Status Reason Start Date Expiration Date Visits Re quested Visits Authorized [id number] 1 1 Encounter Details Date Type Department Care Team (Late st Contact Info) Description 02/07/2023 9:00 AM CDT - 02/07/2023 9:30 AM CDT Surgery [facility] [address] [place] [address] Juan Maria MD [address] [place] [address] [address] COLON BIOPSY Surgery Details Date/Time Status Location OR Service Patient Class Case Class Case Type Trauma Case? 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 Gender Identity Not on file Sexual Orientation Not on file documented as of this encounter Last Filed Vital Signs Vital Sign Reading Time Taken Comments Blood Pressure 104/71 02/07/2023 8:00 AM CDT Pulse 72 02/07/2023 8:00 AM CDT Temperature 36.4 ??C (97.5 ??F) 02/07/2023 8:00 AM CD T Respiratory Rate 18 02/07/2023 8:00 AM CDT Oxygen Saturation 96% 02/07/2023 8:00 AM CDT Inhaled Oxygen Concentration - - [...] 6 (six) hours as needed for pain sysdi-vq-1-dha-ep k-fxhibbq-acl 1,253-912-85-80 mg capsuleIndication s:stop 5 days before surgery Take by mouth meloxicam (MOBIC) 15 mg tablet Take 1 tablet (15 mg total) by mouth daily documented as of this encounter Discharge Disposition Disposition Code Departure Means Destination Comment s Discharge to home or self care documented in this encounter H&P Notes * Juan Maria MD - 02/07/2023 8:49 AM CDT PRE-PROCEDURE [...] 6 (six) hours as needed for pain yknfv-vr-7-aol-lrr-yqociyk-ast 1,880-579-37-80 mg capsule Take by mouth. Physical Exam: [...] - 02/07/2023 8:00 AM CDTAssociated Order(s): COLONOSCOPY [facility] Patient Name: Luciana Musa Procedure Date: 02/07/2023 8:00 AM Date of : 1975 Admit Type: Outpatient Age: 47 Gender: Female Attending MD: Juan Maria M.D. Room: [facility] ENDOSCOPY ROOM 2 Note Status: Finalized Patient [...] procedure were verified by the physician, the device test engineer and the gameroom technician in the endoscopy suite. Mental Status [...] was passed under direct vision. The Colonoscope CF-[id number] was introduced through the anus and advanced [...] 8:00 AM Procedure Code(s): --- Professional --- 67921, Colonoscopy, flexible; with biopsy, single or multiple --- Technical --- 89447, Colonoscopy, flexible; with biopsy, single or multiple [...] tags R19.7, Diarrhea, unspecified CPT copyright 2020 [employer]. All rights reserved. The codes documented in this report are preliminary and upon outpatient coder review may be revised to meet current compliance requirements. Recognized by the [employer] for Gastrointestinal [employer]oscopy for promoting quality [...] Biopsy) 02/07/2023 9:28 AM CDT Narrative PATHOLOGY [facility] ([facility] [place]) - 02/09/2023 2:32 PM CDT EPIC results best viewed via link to PDF [facility] Department of Pathology [address] [place], [place] [id number] Note to Patients: This report may contain [...] Final Report Patient Name: ??LUCIANA MUSAElmer Address: ??[facility] [address], ??[place], [place] ??[address]- Gender: ??F : ??1975 (Age: 47) Service: ??Gastro Location: ??[facility] Hospital #: ??[id number] Patient Type: ??[facility] Accession # ?[id number] Taken: ??02/07/2023 Received: ??02/07/2023 Accessioned: ??02/07/2023 Reported: [...] two formalin containers labeled LUCIANA MUSA . A. ??The first container is labeled right colon . It is four mercado 1 mm fragments. All in A. B. ??The second container is labeled left colon . It is seven mercado 1-2 mm fragments. All in B. T.A. Britt Joe., P.Jose./Prabha Moon M.D. REPORT IMAGES AND SCANNED DOCUMENTS, IF INCLUDED, ONLY VIEWABLE IN PDF VERSION OF REPORT The performance characteristics of some immunohistochemical stains, fluorescence in-situ hybridization tests and immunophenotyping by flow cytometry cited in this report (if any) were determined by the Surgical Pathology Department at [facility] as part of an ongoing quality assurance director program and in compliance with federally mandated [...] characteristics determined by the Surgical Pathology Department [facility]. ??It has not been cleared or approved by the U. S. Food and Drug Administration. Note for decalcified specimens: This assay has not been validated on decalcified tissues. Results should be interpreted with caution given the possibility of false negativity on decalcified specimens Juan Maria MD LAB PATHOLOGY ORDERABLES Final R esult [facility] [address] [place] [address] * POCT hCG, urine (02/07/2023 8:07 AM CDT) HCG, ur, POC Negative Lot Number [id number] QC Backgroud Clear Acceptable QC Control Line Acceptable Urine 02/07/2023 8:07 AM CDT us Juan Maria MD POINT OF CARE TEST ORDERABLES Fi nal Result * COLONOSCOPY (02/07/2023 8:00 AM CDT) Anatomical Region Laterality Modality Other Narrative Procedure Note Juan Maria MD - 02/07/2023 8:00 AM CDT [facility] Patient Name: Luciana Musa Procedure Date: 02/07/2023 8:00 AM Date of : 1975 Admit Type: Outpatient Age: 47 Gender: Female Attending MD: Juan Maria M.D. Room: [facility] ENDOSCOPY ROOM 2 Note Status: Finalized Patient [...] procedure were verified by the physician, the device test engineer and the gameroom technician in the endoscopy suite. Mental Status [...] scope was passed under direct vision. TheColonoscope [id number] was introduced through the anus and advanced [...] 8:00 AM Procedure Code(s): --- Professional --- 50420, Colonoscopy, flexible; with biopsy, single or multiple --- Technical --- 20211, Colonoscopy, flexible; with biopsy, single or multiple [...] tags R19.7, Diarrhea, unspecified CPT copyright 2020 [employer]. All rights reserved. The codes documented in this report are preliminary and upon outpatient coder reviewmay be revised to meet current compliance requirements. Recognized by the [employer] G[employer]oscopy for promoting quality in endoscopy Juan Maria MD ENDOSCOPY PROCEDURES Final Resul t documented in this encounter Visit Diagnoses Diagnosis Special screening for malignant neoplasms, colon- Primary Special screening for malignant neoplasms, colon documented in this encounter Admitting Diagnoses Diagnosis [...] Provider: Sanket Pack CRNA)0925 (Paused - Provider: Sanket Pack CRNA - Comment: Switch to gravity)0926 [...] 02/07/2023 documented in this encounter Care Teams Train Clerk Relationship Specialty Start Date End Date Siva Burgos MD [address] [facility] [place] [address] PCP - General 05/15/16 Cori Arreola MD [address] [address] Referring Physician Gynecology 04/10/18 documented as of this encounter
--- OUTSIDE RECORDS SUMMARY | 2024-06-23 18:24 | XMS_ITS | Clinical Summary ---
Author Organization [facility] Address [address] [place] [address] Care Team Providers Care Briquette Machine Operator Name Role Phone Siva Burgos MD Primary Care Provider [phone] Cori Arreola MD Unavailable [phone] Allergies No known active allergies Medications uzxxi-rh-3-dha -pqp-xwvxwuj-j 1,166-387-09-8 0 mg capsuleIndicat ions:stop 5 days before surgery Take by mouth Active ascorbic acid (VITAMIN C) 500 mg tablet,chewabl e Take 1 tablet by mouth 2 times daily until finished 60 tablet/chew tab 8 Active ibuprofen (ibuprofen) 200 mg tab/cap Take by mouth every 6 (six) hours as needed for pain Active meloxicam (MOBIC) 15 mg tablet Take 1 tablet (15 mg total) by mouth daily Active hydroxychloroq uine (PLAQUENIL) 200 mg tablet Take 1 tablet (200 mg total) by mouth daily 3 Active meclizine (ANTIVERT) 25 mg tabletIndicati ons:Vertigo Take 1 tablet (25 mg total) by mouth 3 (three) times a day as needed for dizziness Collaborating physician Sree Springer MD 30 tablet 4 Active Active Problems Problem Noted Date Diagnosed Date Vertigo 11/02/2023 Acute middle ear effusion, bilateral 11/02/2023 Appendicitis, acute 08/03/2023 Special screening for malignant neoplasms, colon 01/05/2023 LIAM positive 10/31/2021 Abnormal findings on diagnostic imaging of breas t 04/18/2018 Carpal tunnel syndrome on left 04/04/2018 Overview (04/04/2018): Added automatically from request for surgery [id number] Disorder of gallbladder 05/15/2016 Overview (09/22/2016): Gallbladder disease Encounters Date Type Department Care Team Description 06/09/2024 2:00 PM WASHTUB WORKER HELPER Therapy [facility] Occupational Therapy [address] [place] [phone] Laly Núñez, CHARITO Unilateral primary osteoarthritis of first carpometacarpal joint, right hand (Primary Dx) 06/04/2024 3:15 PM WASHTUB WORKER HELPER Therapy [facility] Occupational Therapy [address] [place] [phone] Radha Hewitt OT Unilateral primary osteoarthritis of first carpometacarpal joint, right hand (Primary Dx) 05/29/2024 7:30 AM WASHTUB WORKER HELPER Therapy [facility] Occupational Therapy [address] [place] [address] Laly Núñez, OT Unilateral primary osteoarthritis of first carpometacarpal joint, right hand (Primary Dx) 05/27/2024 1:45 PM WASHTUB WORKER HELPER Therapy [facility] Occupational Therapy [address] [place] [address] Laly Núñez, OT Unilateral primary osteoarthritis of first carpometacarpal joint, right hand (Primary Dx) 05/23/2024 10:00 AM WASHTUB WORKER HELPER Therapy [facility] Occupational Therapy [address] [place] [address] Radha Hewitt OT Unilateral primary osteoarthritis of first carpometacarpal joint, right hand (Primary Dx) 05/12/2024 7:30 AM WASHTUB WORKER HELPER Therapy [facility] Occupational Therapy [address] [place] [phone] Anny Silva COTA Unilateral primary osteoarthritis of first carpometacarpal joint, right hand (Primary Dx) 05/05/2024 7:30 AM WASHTUB WORKER HELPER Therapy [facility] Occupational Therapy [address] [place] [address] Laly Núñez, OT Unilateral primary osteoarthritis of first carpometacarpal joint, right hand (Primary Dx) 05/01/2024 1:00 PM WASHTUB WORKER HELPER Therapy [facility] Occupational Therapy [address] [place] [address] Laly Núñez, OT Unilateral primary osteoarthritis of first carpometacarpal joint, right hand (Primary Dx) 04/29/2024 1:00 PM WASHTUB WORKER HELPER Therapy [facility] Occupational Therapy [address] [place] [phone] Laly Núñez, OT Unilateral primary osteoarthritis of first carpometacarpal joint, right hand (Primary Dx) 04/21/2024 10:30 AM WASHTUB WORKER HELPER Therapy [facility] Occupational Therapy [address] [place] [address] Laly Núñez, OT Unilateral primary osteoarthritis of first carpometacarpal joint, right hand (Primary Dx) 04/17/2024 9:00 AM CDT Therapy [facility] Occupational Therapy [address] [place] [phone] Laly Núñez, OT Unilateral primary osteoarthritis of first carpometacarpal joint, right hand (Primary Dx) 04/10/2024 1:00 PM CDT Therapy [facility] Occupational Therapy [address] [place] [address] Laly Núñez, OT Unilateral primary osteoarthritis of first carpometacarpal joint, right hand 04/10/2024 Plan of Care Documentation [facility] Occupational Therapy [address] [place] [phone] from Last 3 Months Surgical History Surgery Date Site/Laterality Comments HEMORRHOID SURGERY Hemorrhoidectomy OTHER SURGICAL HISTORY 06/18/2016 - 06/17/2017 Single Site DaVinci Cholecystectomy CHOLECYSTECTOMY 06/18/2016 - 06/17/2017 APPENDECTOMY 07/19/2023 - 2023 [facility] Medical History Medical History Date Comments Arthritis Family History Medical History Relation Name Comments Prostate cancer Father Multiple sclerosis Mother Multiple sclerosis; Cancer Other Relation Name Status Comments Father Mother Other Social History Tobacco Use Types Packs/Day Years [...] on file Legal Sex Female 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 Gender Identity Not on file Sexual Orientation Not on file Obstetrics History Para Term AB IAB SAB Ectopic Multiple Livin g Live Births 3 3 3 Date Outcome GA Total Labor Labor/2nd/3rd Weight Sex Type Anes PTL Kiana A1 A5 Name Clin Term Term Term Last Filed Vital Signs Vital Sign Reading [...] Mass Index 22.85 01/03/2024 11:36 AM CDT Plan of Treatment Health Maintenance Due Date Last Done Comments Cervical Cancer Screening 1975 Depression Screening 1975 Hepatitis C Screening 1975 Pneumococcal vaccine <65 (1 of 2 - PCV) 1980 DTaP/Tdap/Td Vaccine (1 - Tdap) 1985 Hepatitis B Screening 1992 Regular Well Visit/Exam 18-64 1992 Zoster Vaccine (1 of 2) 1993 Covid-19 Vaccine (3 - Pfizer risk series) 11/29/2020 11/01/2020, 10/12/2020 Influenza Vaccine (#1) 2024 07/06/2022, 2018 Breast Cancer Screening-Mammogram 02/12/2025 02/13/2024, 02/13/2024, 03/15/2018, Additional history exists Colon Cancer Screening-Colonoscopy 02/07/20332022 Procedures Procedure Name Priority Date/Time Associated Diagnosis Comments COLONOSCOPY 02/07/2023 8:00 AM CDT SCREENING MAMMOGRAM BILATERAL W [facility]ANE Schedule Routine, Read Routine (OP Routine) 03/15/2018 8:14 AM CDT Encounter for screening mammogram for malignant neoplasm of breast from Last 3 Months or Most Recently Relevant to Health Maintenance Results * COLONOSCOPY (02/07/2023 8:00 AM CDT) Anatomical Region Laterality Modality Other Narrative Procedure Note Juan Maria MD - 02/07/2023 8:00 AM CDT [facility] Patient Name: Luciana Yost Procedure Date: 02/07/2023 8:00 AM Date of : 1975 Admit Type: Outpatient Age: 47 Gender: Female Attending MD: Juan Maria M.D. Room: [facility] ENDOSCOPY ROOM 2 Note Status: Finalized Patient [...] procedure were verified by the physician, the entry level sales consultant and the fiberglass technician in the endoscopy suite. Mental Status [...] scope was passed under direct vision. TheColonoscope CF-[id number] was introduced through the anus and advanced [...] 8:00 AM Procedure Code(s): --- Professional --- 80046, Colonoscopy, flexible; with biopsy, single or multiple --- Technical --- 83664, Colonoscopy, flexible; with biopsy, single or multiple [...] tags R19.7, Diarrhea, unspecified CPT copyright 2020 [employer]. All rights reserved. The codes documented in this report are preliminary and upon director motion picture reviewmay be revised to meet current compliance requirements. Recognized by the [employer] for promoting quality in endoscopy Juan Maria MD ENDOSCOPY PROCEDURES Final Resul t * (ABNORMAL) Screening Mammogram Bilateral W [place] (03/15/2018 8:14 AM CDT) Anatomical Region Laterality Modality Breast Bilateral Mammography 03/15/2018 8:16 AM CDT Impressions 03/15/2018 8:30 AM CDT APPARENT INCREASED MACROCALCIFICATIONS UPPER LEFT BREAST. MAGNIFICATION VIEW RECOMMENDED FOR FURTHER EVALUATION. BI-RADS 0. ??Incomplete. ??Needs additional views. Electronically signed by: Dayo Milan 03/15/2018 8:30 AM CDT SCREENING MAMMOGRAM BILATERAL W [facility] HISTORY: Encounter for screening mammogram for malignant neoplasm of breast. TECHNIQUE: 2 views of each breast were obtained with bilateral breast tomosynthesis. COMPARISON: 08/17/2015. FINDINGS: The breasts are extremely dense which may lower mammogram sensitivity for lesion detection. No dominant mass identified. Numerous microcalcifications are seen bilaterally. ??There appear to be increased microcalcifications in the upper left breast. Magnification view recommended for further evaluation. Digital technology was employed plus computer aided detection software (R2) was utilized in interpretation of these images. ??This facility utilizes a reminder system to notify patient's of yearly mammograms. Cori Arreola MD IMG MAMMO PROCEDURES Fin al Result from Last 3 Months or Most Recently Relevant to Health Maintenance Insurance [facility] H[facility]/PPO Address: [address] [address] [place] [address] [facility] IDPA [facility] Advance Directives For more information, please contact: [phone] * Full Code (Latest Code Status on File) Date Activated Date Inactivated Comments 02/07/2023 7:53 AM 02/07/2023 2:53 PM * Full Code Date Activated Date Inactivated Comments 02/07/2023 7:53 AM 02/07/2023 7:53 AM Care Teams Briquette Machine Operator Relationship Specialty Start Date End Date Siva Burgos MD [address] [place] [address] PCP - General 05/15/16 Cori Arreola MD [address] [address] Referring Physician Gynecology 04/10/18
--- OUTSIDE RECORDS SUMMARY | 2024-06-23 18:24 | XMS_ITS | Encounter Summary ---
Author Organization [facility] Address [address] [place] [address] Care Team Providers Care Geography Faculty Member Name Role Phone Siva Burgos MD Primary Care Provider [phone] Cori Arreola MD Unavailable [phone] Encounter Details Date Type Department Care Team (Late st Contact Info) Description 01/05/2023 Telephone [facility] Gastroenterology at [address] [place] [address] Rafaela Nair Social History Tobacco Use Types Packs/Day Years Used Date Smoking Tobacco: Never Smokeless Tobacco: Never Alcohol Use Standard Drinks/Week Comments Yes 0 (1 standard drink = 0.6 oz pur e alcohol) Comments No Sex and Gender Information Value Date Recorded Sex Assigned at Not on file Legal Sex Female 9:53 AM STONER OUT Gender Identity Not on file Sexual Orientation Not on file documented as of this encounter Miscellaneous Notes * Telephone Encounter - Rafaela Nair - 01/05/2023 2:51 PM CDT Last colonoscopy: N/A Family history colon cancer (if yes, relationship to pt): no Personal history colon polyps or colon cancer: no Pt on blood thinner (if yes, list medication and reason for taking): no Has pt had recent stent placement within the last year: no Pt have pacemaker/defibrillator: no Pt diabetic (if yes, insulin or oral meds): no Pt have kidney disease or on dialysis: no Pt on iron: no Hx of Constipation: no Mechanical Heart valve: no Instructed pt to call with any medical changes and/or medications/insurance. documented in this encounter Plan of Treatment Not on file documented as of this encounter Visit Diagnoses Diagnosis Special screening for malignant neoplasms, colon- Primary documented in this encounter Orders Case Request Count Last Ordered Date First Orde red Date CASE REQUEST GI 1 01/05/2023 documented in this encounter Care Teams Geography Faculty Member Relationship Specialty Start Date End Date Siva Burgos MD [address] [place] [address] PCP - General 05/15/16 oCri Arreola MD [address] [address] Referring Physician Gynecology 04/10/18 documented as of this encounter
--- OUTSIDE RECORDS SUMMARY | 2024-06-23 18:24 | XMS_ITS | Encounter Summary ---
Author Organization [facility] Address [address] [place] [address] Care Team Providers Care Expediter Name Role Phone Siva Burgos MD Primary Care Provider [phone] Cori Arreola MD Unavailable [phone] Reason for Visit * Reason Comments PT Progress Note Encounter Details Date Type Department Care Team (Late st Contact Info) Description 02/17/2020 1:00 PM CDT Therapy [facility] [place] [address] Yoshi Brock, PT De Quervain's disease (radial styloid tenosynovitis) (Primary Dx); Lateral epicondylitis of left elbow Social History Tobacco Use Types Packs/Day Years Used Date Smoking Tobacco: Never Smokeless Tobacco: Never Alcohol Use Standard Drinks/Week Comments Yes 0 (1 standard drink = 0.6 oz pur e alcohol) Comments No Sex and Gender Information Value Date Recorded Sex Assigned at Not on file 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 female No referring provider defined for this encounter. ICD-9-CM ICD-10-CM 1. De Quervain's disease (radial styloid tenosynovitis) 727.04 M65.4 2. Lateral epicondylitis of left elbow 726.32 M77.12 PT Progress Note Subjective History of Present Illness: About a year ago she started having some elbow and wrist and thumb discomfort. It continued to get worse. She saw Dr. Das and was referred to PT. She was given an option of an injection and refused at this time. She has completed 10 visits of physical therapy. Current Symptoms: She continues to report pain in left elbow and forearm down to the wrist and thumb. Pain: Pain location: Left elbow/wrist Current Pain Ratin/10 At worst Pain Ratin-9/10 At best Pain Ratin/10 Aggravating Factors:certain movements, lifting, fine motor activities Alleviating Factors: rub on it. Patient Goals: Eliminate pain in left elbow and wrist. Objective Inspection: No obvious deformities of left wrist or elbow. Handedness: Patient is right hand dominant. Raveler Strength: 25# right and 20# left Pinch Strength: Lat pinch 13# right and 12# left Posture: Forward head, rounded shoulder Upper Extremity AROM: Left Right Shoulder Flexion WNL WNL Shoulder Abduction WNL WNL Shoulder External Rotation WNL WNL Shoulder Internal Rotation WNL WNL Shoulder Extension WNL WNL Elbow Flexion 130 WNL Elbow Extension 0 WNL Wrist Flexion 70 75 Wrist Extension 45 55 Pronation 90 90 Supination 90 90 Upper Extremity Strength: Left Right Shoulder Flexion 5/5 5/5 Shoulder Abduction 5/5 5/5 Shoulder Extension 5/5 5/5 Shoulder External Rotation 5/5 5/5 Shoulder Internal Rotation 5/5 5/5 Elbow Flexion 5/5 5/5 Elbow Extension 5/5 5/5 Wrist Flexion 4+/5 5/5 Wrist Extension 4+/5 5/5 Pronation 4+/5 5/5 Supination 4+/5 5/5 Palpation: There is tenderness elicited to palpation of the left elbow over the lateral epicondyle into the left forearm musculature. There is also tenderness along the lateral aspect of the thumb into the wrist. Special Testing: Nishant's: Positive Mill's: Positive Treatment Provided: HP to left elbow and wrist prior to treatment. US to left elbow STM and IASTM to left elbow and forearm and lateral wrist. HEP for stretching of left wrist and elbow. 3# wrist extension, wrist flexion, and UD/RD Brown gripper Red therabar for pronation/supination Arm bike x 4 min (2 fwd/2bwd) Therabar for Bucky twist Patient requires skilled therapy to restore prior level of function utilizing the treatment and modalities described in this plan of Care. Following the evaluation and extensive patient education regarding diagnosis, prognosis, and treatment goals, the patient (parent/guardian, power of frog shaker bell) actively participated in the creation of the current goals and agrees to the current treatment plan. Assessment/Plan Assessment Impairments: lacks appropriate home exercise program, pain with function, activity tolerance, abnormal or restricted ROM, flexibility, impaired physical strength, muscle length Assessment details: Leyla has made some progress with her therapy. She reports continued discomfort and noted tenderness to palpation. However, her range of motion and strength have improved slightly. We will await further orders/recommendations regarding the status of this patient following her ap pointment with Dr. Das next week. Prognosis: good Goals STG 1:: Decrease pain level to 0-2/10. Goal status: Progressing STG 2:: Increase score on UEFI to a 66/80. Goal status: Progressing LTG 1:: Increase range of motion of left wrist and elbow. Goal status: Progressing LTG 2:: Increase strength of left wrist and elbow. Goal status: Progressing LTG 3:: Decrease tenderness to palpation. Goal status: Progressing LTG 4:: Patient to return to prior level of function and self care. Goal status: Progressing Plan Start time: 1259 End time: 1400 Therapy options: will be seen for skilled therapy services Planned modality interventions: cryotherapy, ultrasound, thermotherapy (hydrocollator packs), interferential current Planned therapy interventions: endurance training, fine motor coordination training, functional ROMexercises, home exercise program, joint mobilization, manual therapy, postural training, soft tissue mobilization, strengthening, therapeutic activities, stretching, spinal/joint mobilization, neuromuscular re- education, flexibility Frequency: 2 x/week Duration in weeks: 6 weeks Discussed with: patient STEPHY Lock documented in this encounter Plan of Treatment Not on file documented as of this encounter Visit Diagnoses Diagnosis De Quervain's disease (radial styloid tenosynovitis)- Primary Lateral epicondylitis of left elbow documented in this encounter Care Teams Expediter Relationship Specialty Start Date End Date Siva Burgos MD [address] [place] [address] PCP - General 05/15/16 Cori Arreola MD [address] [address] Referring Physician Gynecology 04/10/18 documented as of this encounter
--- OUTSIDE RECORDS SUMMARY | 2024-06-23 18:24 | XMS_ITS | Encounter Summary ---
Author Organization [facility] Address [address] [place] [address] Care Team Providers Care Online Health And Fitness Coach Name Role Phone Siva Burgos MD Primary Care Provider [phone] Cori Arreola MD Unavailable [phone] Reason for Visit * Reason Comments OT Treatment * Consultation (Routine) - Pending Review Specialty Diagnoses / Procedures Referred By Contact Referred To Contact Occupational Therapy Diagnoses Unilateral primary osteoarthritis of first carpometacarpal joint, right hand Hipolito Cat MD Phone: tel:[phone] fax:[phone] [facility] Occupational Therapy [address] [place] [address] Phone: tel: fax: Referral ID Status Reason Start Date Expiration Date Visits Requested Visits Authorized [id number] Pending Review Evaluate and Treat 4 04/16/2025 24 13 Encounter Details Date Type Department Care Team (Late st Contact Info) Description 05/12/2024 7:30 AM STAVE PLANER TENDER Therapy [facility] Occupational Therapy [address] [place] [address] Anny Silva COTA Unilateral primary osteoarthritis of [...] on file Legal Sex Female 9:53 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 She stated that the doctor told her to stop wearing her brace. Pain: 08/25 Objective: No objective measurements taken this date. Treatment Provided: MHP x 10 min to R-hand Scar massage to R thumb Small peg activity (making an O ) Small peg activity (thumb to SF) .5 cm beads on string x 2 trials Calibrated Hand Gripper with 15# resistance to remove x 25 pegs 1# dumbbell exercises over foam wedge wrist flexion/extension, radial/ulnar deviation 1 set x 10 reps each Small wrist pipeline gang supervisor with no added weight x 5 reps [place] & bottle activity x 1 Assessment: Patient presents with decreased ROM of [...] degrees by 6 weeks (05/29/24) Plan: Continue per POC Start Time: 7:34 End Time: 8:15 BUCK Hutchinson/L E PLANER TENDER E PLANER TENDER documented in this encounter Plan of Treatment Not on file documented as of this encounter Visit Diagnoses Diagnosis Unilateral primary osteoarthritis of first carpometacarpal joint, right hand- Primary documented in this encounter Care Teams Online Health And Fitness Coach Relationship Specialty Start Date End Date Siva Burgos MD [address] [place] [address] PCP - General 05/15/16 Cori Arreola MD [address] [place] [address] Referring Physician Gynecology 04/10/18 documented as of this encounter
--- OUTSIDE RECORDS SUMMARY | 2024-06-23 18:24 | XMS_ITS | Encounter Summary ---
Author Organization [facility] Address [address] [place] [address] Care Team Providers Care Stock Roller Name Role Phone Siva Burgos MD Primary Care Provider [phone] Cori Arreola MD Unavailable [phone] Reason for Visit * Reason Comments OT Treatment * Consultation (Routine) - Pending Review Specialty Diagnoses / Procedures Referred By Contact Referred To Contact Occupational Therapy Diagnoses Unilateral primary osteoarthritis of first carpometacarpal joint, right hand Hipolito Cat MD Phone: tel:[phone] fax:[phone] [facility] Occupational Therapy [address] [place] [address] Phone: tel: fax: Referral ID Status Reason Start Date Expiration Date Visits Requested Visits Authorized [id number] Pending Review Evaluate and Treat 04/16/2025 24 13 Encounter Details Date Type Department Care Team (Late st Contact Info) Description 04/17/2024 9:00 AM CDT Therapy [facility] Occupational Therapy [address] [place] [address] Laly Núñez OT 1 [facility] [place] [address] Unilateral primary osteoarthritis of first carpometacarpal joint, [...] on file Legal Sex Female 9:53 AM APPLICATIONS TESTER Gender Identity Not on file Sexual Orientation Not on file documented as of this encounter Progress Notes * Laly Núñez, OT - 04/17/2024 9:00 AM CDT Occupational Therapy Visit OT Daily Treatment Note Luciana Yost 1975 Subjective: Pain: 0/10 Patient continues to report a comfortable orthosis fit. (3 weeks, 1 day post op) Objective: Active Wrist and Forearm Range of Motion Right Left Extension/ Flexion 42/29 Extension/ Flexion Radial/Ulnar Deviation 7/8 Radial/Ulnar Deviation Supination/ Pronation 80/85 Supination/ Pronation Active Thumb Range of Motion Right Left MP extension/ flexion 0/21 MP extension/ flexion IP extension/flexion 0/20 IP extension/flexion Palmar abduction Palmar abduction Radial abduction Radial abduction Opposition Opposition Other: Other: Treatment Provided: Therapist removed the 4 remaining sutures right incision Educated patient on AROM exercises for WE/WF, RD/UD, and forearm supination/pronation - issued for HEP Educated patient on AROM exercises for thumb flexion/extension and opposition to IF/LF - issued forHEP Ball exercises for WE/WF, RD/UD, and forearm supination/pronation x's 3 minutes each Assessment: Patient presents with decreased ROM of right thumb and wrist. Her incision is healing well with no signs of infection. She has no pain at rest. She continues to report a comfortable orthosis fit. Shetolerated all therapy activities this date. She verbalized understanding of HEP. She would benefit from continued OT services. ST) 10/24/24 Patient to don/doff orthosis independently by end [...] to therapy to continue plan of care. Begin scar massage. Start Time: 9:00 AM End Time: 9:45 AM Laly Núñez OTR/L documented in this encounter Plan of Treatment Not on file documented as of this encounter Visit Diagnoses Diagnosis Unilateral primary osteoarthritis of first carpometacarpal joint, right hand- Primary documented in this encounter Care Teams Stock Roller Relationship Specialty Start Date End Date Siva Burgos MD [address] [place] [address] PCP - General 05/15/16 Cori Arreola MD [address] [id number] Referring Physician Gynecology 04/10/18 documented as of this encounter
--- OUTSIDE RECORDS SUMMARY | 2024-06-23 18:24 | XMS_ITS | Referral Summary ---
Author Organization [facility] Address [address] [place] [address] Care Team Providers Care Speed Operator Name Role Phone Siva Burgos MD Primary Care Provider [phone] Cori Arreola MD Unavailable [phone] Encounters Date Type Department Care Team Description 06/09/2024 2:00 PM BOILER CONTROL TECHNICIAN Therapy [facility] Occupational Therapy [address] [place] [address] Llay Núñez OT Unilateral primary osteoarthritis of first carpometacarpal joint, right hand (Primary Dx) 06/04/2024 3:15 PM BOILER CONTROL TECHNICIAN Therapy [facility] Occupational Therapy [address] [place] [address] Radha Hewitt OT Unilateral primary osteoarthritis of first carpometacarpal joint, right hand (Primary Dx) 05/29/2024 7:30 AM BOILER CONTROL TECHNICIAN Therapy [facility] Occupational Therapy [address] [place] [address] Laly Núñez OT Unilateral primary osteoarthritis of first carpometacarpal joint, right hand (Primary Dx) 05/27/2024 1:45 PM BOILER CONTROL TECHNICIAN Therapy [facility] Occupational Therapy [address] [place] [address] Laly Núñez OT Unilateral primary osteoarthritis of first carpometacarpal joint, right hand (Primary Dx) 05/23/2024 10:00 AM BOILER CONTROL TECHNICIAN Therapy [facility] Occupational Therapy [address] [place] [address] Radha Hewitt, OT Unilateral primary osteoarthritis of first carpometacarpal joint, right hand (Primary Dx) 05/12/2024 7:30 AM BOILER CONTROL TECHNICIAN Therapy [facility] Occupational Therapy [address] [place] [address] Anny Silva COTA Unilateral primary osteoarthritis of first carpometacarpal joint, right hand (Primary Dx) 05/05/2024 7:30 AM BOILER CONTROL TECHNICIAN Therapy [facility] Occupational Therapy [address] [place] [address] Laly Núñez, OT Unilateral primary osteoarthritis of first carpometacarpal joint, right hand (Primary Dx) 05/01/2024 1:00 PM BOILER CONTROL TECHNICIAN Therapy [facility] Occupational Therapy [address] [place] [address] Laly Núñez, OT Unilateral primary osteoarthritis of first carpometacarpal joint, right hand (Primary Dx) 04/29/2024 1:00 PM BOILER CONTROL TECHNICIAN Therapy [facility] Occupational Therapy [address] [place] [address] Laly Núñez, OT Unilateral primary osteoarthritis of first carpometacarpal joint, right hand (Primary Dx) 04/21/2024 10:30 AM BOILER CONTROL TECHNICIAN Therapy [facility] Occupational Therapy [address] [place] [address] Laly Núñez, OT Unilateral primary osteoarthritis of first carpometacarpal joint, right hand (Primary Dx) 04/17/2024 9:00 AM CDT Therapy [facility] Occupational Therapy [address] [place] [address] Laly Núñez, OT Unilateral primary osteoarthritis of first carpometacarpal joint, right hand (Primary Dx) 04/10/2024 Plan of Care Documentation [facility] Occupational Therapy [address] [place] [address] 04/10/2024 1:00 PM CDT Therapy [facility] Occupational Therapy [address] [place] [address] Laly Núñez, OT Unilateral primary osteoarthritis of first carpometacarpal joint, right hand from Last 3 Months Allergies No known active allergies Medications [id number] 0 mg capsuleIndicat ions:stop 5 days before [...] (04/04/2018): Added automatically from request for surgery [id number] Disorder of gallbladder 05/15/2016 Overview (09/22/2016): Gallbladder disease Social History Tobacco Use Types Packs/Day Years [...] on file Legal Sex Female 9:53 AM BOILER CONTROL 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 Gender Identity Not on file Sexual Orientation [...] 01/03/2024 11:36 AM CDT Plan of Treatment Not on file Procedures Procedure Name Priority Date/Time Associated Diagnosis Comments COLONOSCOPY 02/07/2023 8:00 AM CDT SCREENING MAMMOGRAM BILATERAL W SAUNDRA Schedule Routine, Read Routine (OP Routine) 03/15/2018 8:14 AM CDT Encounter for screening mammogram for malignant neoplasm of breast from Last 3 Months or Most Recently Relevant to Health Maintenance Results * COLONOSCOPY (02/07/2023 8:00 AM CDT) Anatomical Region Laterality Modality Other Narrative Procedure Note Juan Maria MD - 02/07/2023 8:00 AM CDT [facility] Patient Name: Luciana Yost Procedure Date: 02/07/2023 8:00 AM Date of : 1975 Admit Type: Outpatient Age: 47 Gender: Female Attending MD: Juan Maria M.D. Room: [facility] ENDOSCOPY ROOM 2 Note Status: [...] procedure were verified by the physician, the manager proposal and the cooking appliance repair technician in the endoscopy suite. Mental Status [...] scope was passed under direct vision. TheColonoscope [id number] was introduced through the anus and advanced [...] 8:00 AM Procedure Code(s): --- Professional --- 27090, Colonoscopy, flexible; with biopsy, single or multiple --- Technical --- 62668, Colonoscopy, flexible; with biopsy, single or multiple [...] tags R19.7, Diarrhea, unspecified CPT copyright 2020 [employer]. All rights reserved. The codes documented in this report are preliminary and upon statistics tutor reviewmay be revised to meet current compliance requirements. Recognized by the [employer] for promoting quality in endoscopy us Juan Maria MD ENDOSCOPY PROCEDURES Final Resul t * (ABNORMAL) Screening Mammogram Bilateral W Saundra (03/15/2018 8:14 AM CDT) Anatomical Region Laterality Modality Breast Bilateral Mammography 03/15/2018 8:16 AM CDT Impressions 03/15/2018 8:30 AM CDT APPARENT INCREASED MACROCALCIFICATIONS UPPER LEFT BREAST. MAGNIFICATION VIEW RECOMMENDED FOR FURTHER EVALUATION. BI-RADS 0. ??Incomplete. ??Needs additional views. Electronically signed by: Dayo Milan 03/15/2018 8:30 AM CDT SCREENING MAMMOGRAM BILATERAL W SAUNDRA HISTORY: Encounter for screening mammogram for malignant [...] Most Recently Relevant to Health Maintenance Insurance [facility] [address] [place] [address] [facility] Advance Directives For more information, please contact: [phone] * Full Code (Latest Code Status on File) Date Activated Date Inactivated Comments 02/07/2023 7:53 AM 02/07/2023 2:53 PM * Full Code Date Activated Date Inactivated Comments 02/07/2023 7:53 AM 02/07/2023 7:53 AM Care Teams Speed Operator Relationship Specialty Start Date End Date Siva Burgos MD [address] [place] [address] PCP - General 05/15/16 Cori Arreola MD [address] [facility] [address] [place], [place] [id number] Referring Physician Gynecology 04/10/18
--- OUTSIDE RECORDS SUMMARY | 2024-06-23 18:24 | XMS_ITS | Encounter Summary ---
Author Organization [facility] Address [address] [place] [address] Care Team Providers Care Battalion Chief Name Role Phone Siva Burgos MD Primary Care Provider [phone] Cori Arreola MD Unavailable [phone] Reason for Visit * Auth/Cert (Routine) Specialty Diagnoses / Procedures Referred By Contac t Referred To Contact Diagnoses Special screening for malignant neoplasms, colon Special screening for malignant neoplasms, colon [Z12.11] Procedures MA COLONOSCOPY FLX DX W/COLLJ SPEC WHEN PFRMD COLONOSCOPY Referral ID Status Reason Start Date Expiration Date Visits Re quested Visits Authorized [id number] 1 1 Encounter Details Date Type Department Care Team (Late st Contact Info) Description 02/07/2023 8:46 AM CDT Anesthesia Event [facility] [address] [place] [address] Yunier Sultana MD [address] [place] [id number] Sanket Pack, EMBROIDERY FINISHER [address] [facility] [address] [address] Anesthesia Record Procedure Summary Procedure Name Responsible Anesthesiologist Anesthesia Start Time Anesthesia Stop Time COLON BIOPSY Yunier Sultana MD 02/07/23 0846 02/07/23 0927 Events Date Time Event Comment 02/07/2023 0809 0846 An Start 0846 An Start Data 0846 In Room 0847 Start Supplemental O2 0848 Patient Positioned Laterally 0853 An Induction The patient was reevaluated immediately before moderate or deep sedation use and before anesthesia induction. 0853 Anesthesia Ready 0856 Proc Start 0925 Proc Fin 926 an stop data 926 Handoff to RN I completed my handoff to the receiving nurse during which we: 1. Patient identified 2. Responsible provider identified 3. Pertinent medical history reviewed 4. Procedure type and surgical course discussed 5. Intraoperative anesthetic management and any significant issues discussed 6. Expectations and concerns for postop period discussed 7. Questions solicited from receiving nurse 8. Patient disposition at the time of handoff: No value filed. 926 An Stop 09 Out of Room Meds Name Total propofol 270 mg sodium chloride 0.9% infusion 200 mL * Agents Name O2 * Blood No blood administrations on file. Lines, Drains, and Airways Type Details Placement Removal RETIRED Surgical Site 05/16/18; 08; Le ft; Hand; 05/20/24 (Retired LDA, Removed/Completed by [email or web address] with LDA Utility); 121 (Retired LDA, Removed/Completed by [email or web address] with LDA Utility) 05/16/18 08 by Guerita Wahl RN 05/20/24 1213 by Discharge Provider, Automatic Peripheral IV Placement Date: 02/07/23; Placement Time: 08; Catheter Size: 22 G; Orientation: Posterior, Right; Location: Hand; Site Prep: Chlorhexidine; Technique: Anatomical landmarks; Inserted by: tiffany Yost rn; Insertion Attempts: 1; Patient Tolerance: Tolerated well; Removal Date: 02/07/23; Removal Time: 1010; Removal Reason: Discharge 02/07/23 0813 by Esperanza Yost RN 02/07/23 1010 by Esperanza Yost, BALJIT documented in this encounter Social History Tobacco [...] on file 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 Gender Identity Not on file Sexual Orientation Not on file documented as of this encounter OR Notes * Anesthesia Postprocedure Evaluation - Sanket Pack CRNA - 02/07/2023 9:29 AM CDT Patient: Luciana Yost Procedure Summary Date: 02/07/23 Room / Location: [facility] ROOM 2 / [facility] Anesthesia Start: 845 Anesthesia Stop: 926 Procedure: COLON BIOPSY Diagnosis: Special screening for malignant neoplasms, colon (Special screening for malignant neoplasms, colon [Z12.11]) Providers: Juan Maria MD Responsible Provider: Yunier Sultana MD Anesthesia Type: general TIVA ASA Status: 1 Anesthesia Type: general TIVA Last vitals BP 104/71 Pulse 72 Temp 36.4 ??C (97.5 ??F) (Skin) Resp 18 SpO2 96% Anesthesia Post Evaluation Patient location during evaluation: PACU Patient participation: complete - patient participated Level of consciousness: fully awake Pain score: 0 Pain management: adequate Airway patency: adequate Evidence of recall: no Cardiovascular status: acceptable Respiratory status: acceptable Hydration status: acceptable Nausea/Vomiting status: none No notable events documented. * Anesthesia Preprocedure Evaluation - Laith Liu MD - 02/07/2023 7:52 AM CDT Images from the original note were not included. Anesthesia Evaluation Luciana Yost is a 47 y.o. female Procedure(s): COLONOSCOPY Pre-Op Diagnosis Codes: * Special screening for malignant neoplasms, colon [Z12.11] HISTORY Past Medical History Neurological Neuro/Psych system: negative Cardiovascular Cardiac system: negative Respiratory Respiratory system: negative Hepatic / Heme Hepatic/Heme system: negative Gastrointestinal GI system: negative Renal / Renal/ system: negative Musculoskeletal/Pain + Osteoarthritis Endocrine / Other Endocrine/Other system: negative Functional Capacity Functional capacity: 6-10 METs Day of Surgery assessments + Possibility of assessed - HCG negative (see labs). Patient Active Problem List Diagnosis Disorder of gallbladder Carpal tunnel syndrome on left Abnormal findings on diagnostic imaging of breast Special screening for malignant neoplasms, colon Past Medical History: Diagnosis Date Arthritis Past Surgical History: Procedure Laterality Date CHOLECYSTECTOMY 2017 HEMORRHOID SURGERY Hemorrhoidectomy OTHER SURGICAL HISTORY 2017 Single Site DaVinci Cholecystectomy OB History 3 Para 3 Term 3 AB Living SAB IAB Ectopic Multiple Live Births No Known Allergies Taking? Last Dose Start Date End Date Provider ascorbic acid (VITAMIN C) 500 mg tablet,chewable Past Week 05/07/18 -- Keo Kaur PA Take 1 tablet by mouth 2 times daily until finished ibuprofen (ibuprofen) 200 mg tab/cap -- -- -- ProviderJocelyne MD [id number] mg capsule More than a month -- -- Jocelyne Ahn MD meloxicam (MOBIC) 15 mg tablet Past Week -- -- ProviderJocelyne MD No current facility-administered medications for this encounter. Social History Tobacco Use Smoking Status Never Smokeless Tobacco Never Alcohol Use: Heavy Drinker (02/06/2023) AUDIT-C Frequency of Alcohol Consumption: 2-4 times a month Average Number of Drinks: 1 or 2 Frequency of Binge Drinking: Weekly Substance and Sexual Activity Drug Use No Family History Problem Relation Age of Onset Multiple sclerosis Mother Multiple sclerosis; Cancer Other Prostate cancer Father 68 There were no vitals filed for this visit. PT: No results found for requested labs within last 30 days. INR: No results found for requested labs within last 30 days. APTT: No results found for requested labs within last 30 days. Hgb A1C: No results found for requested labs within last 30 days. CBC RBC: No results found for requested labs within last 30 days. RDW: No results found for requested labs within last 30 days. MCHC: No results found for requested labs within last 30 days. MCH: No results found for requested labs within last 30 days. MCV: No results found for requested labs within last 30 days. Hct: No results found for requested labs within last 30 days. Hgb: No results found for requested labs within last 30 days. WBC: No results found for requested labs within last 30 days. MPV: No results found for requested labs within last 30 days. Platelets: No results found for requested labs within last 30 days. RDW CV: No results found for requested labs within last 30 days. RDW Sd: No results found for requested labs within last 30 days. BMP Glucose: No results found for requested labs within last 30 days. Calcium: No results found for requested labs within last 30 days. Sodium: No results found for requested labs within last 30 days. Potassium: No results found for requested labs within last 30 days. CO2: No results found for requested labs within last 30 days. Chloride: No results found for requested labs within last 30 days. BUN: No results found for requested labs within last 30 days. Creatinine: No results found for requested labs within last 30 days. DOS Physical Exam Medical history, medications, and allergies reviewed. Attestation: This PAT evaluation 02/07/2023. Airway Exam: Mallampati: II Cervical ROM: FROM TM distance: >4 Cardiovascular Exam: Rate: regular Rhythm: regular Pulmonary Exam: LCTA, bilat EENT Exam: trachea midline Current state: Patient's current state is cooperative. Anesthesia Plan ASA 1 Planned anesthesia: General TIVA Induction: Induction: intravenous. Postoperative Plan: Patient's planned disposition post procedure is Outpatient. Informed Consent: Discussed plan with attending. Anesthesia plan and risks discussed with patient. Consent and Attending signature: I and/or my designee have discussed the anesthesia plan, benefits, possible alternatives, parental presence at time of induction (if indicated), and clinically relevant risks that may include dental injury, unintentional awareness, and/or other complications. The patient and/or parent/legal guardian understand, and agree to proceed. All questions answered. documented in this encounter Plan of Treatment Not on file documented as of this encounter Visit Diagnoses Not on filedocumented in this encounter Administered Medications Inactive Administered Medications - up to 3 most recent administrations Medication Order MAR Action Action Date Dose Rate Site propofoL (DIPRIVAN) 10 mg/mL IV intravenous, As needed, Starting on Sun02/07/23 at 0853, Anesthesia Intra-op Given 02/07/2023 9:18 AM CDT 30 mg Given 02/07/2023 9:12 AM CDT 20 mg Given 02/07/2023 9:11 AM CDT 30 mg sodium chloride 0.9% infusion 30 mL/hr, intravenous, Continuous, Starting on Sun02/07/23 at 0830, Pre-Procedure (GI) Restarted 02/07/2023 9:26 AM CDT Rate/Dose Verify 02/07/2023 8:46 AM CDT 30 mL/h r New Bag 02/07/2023 8:14 AM CDT 30 mL/hr 30 mL/hr documented in this encounter Care Teams Battalion Chief Relationship Specialty Start Date End Date Siva Burgos MD [address] [facility] [place] [address] PCP - General 05/15/16 Cori Arreola MD [address] [address] Referring Physician Gynecology 04/10/18 documented as of this encounter
--- OUTSIDE RECORDS SUMMARY | 2024-06-23 18:24 | XMS_ITS | Encounter Summary ---
Author Organization [facility] Address [address] [place] [address] Care Team Providers Care Continuous Pickling Line Pickler Name Role Phone Siva Burgos MD Primary Care Provider [phone] Cori Arreola MD Unavailable [phone] Reason for Visit * Reason Comments OT Treatment * Consultation (Routine) - Pending Review Specialty Diagnoses / Procedures Referred By Contact Referred To Contact Occupational Therapy Diagnoses Unilateral primary osteoarthritis of first carpometacarpal joint, right hand Hipolito Cat MD Phone: tel:[phone] fax:[phone] [facility] Occupational Therapy [address] [place] [address] Phone: tel: fax: Referral ID Status Reason Start Date Expiration Date Visits Requested Visits Authorized [id number] Pending Review Evaluate and Treat 4 04/16/2025 24 13 Encounter Details Date Type Department Care Team (Late st Contact Info) Description 05/29/2024 7:30 AM MANAGER LANGUAGE Therapy [facility] Occupational Therapy [address] [place] [id number] Laly Núñez, OT [address] [place] [address] [place] [address] Unilateral primary osteoarthritis of first carpometacarpal joint, [...] on file Legal Sex Female 9:53 AM MANAGER LANGUAGE Gender Identity Not on file Sexual Orientation Not on file documented as of this encounter Progress Notes * Laly Núñez, OT - 05/29/2024 7:30 AM CST Occupational Therapy Visit OT Daily Treatment Note Luciana Yost 1975 Subjective: Pain: 07/28 Patient reports no new subjective information Objective: No objective measurements were taken this date. Treatment Provided: MHP x's 10 minutes to increase tissue extensibility Purple theraputty and marble activity x's 5 marbles (with increased time) WE/WF off of foam wedge using 2 lb dumbbell x's 10 reps x's 2 sets Bead transfer activity on string using 0.5 cm beads x's 2 sets Red therabar bends x's 2 minutes Assessment: Patient continues to present with increased scar tissue. She has decreased ROM and strength of right hand/wrist. She has mild pain this date and feels she has been doing too much with her hand. Per patient she does not need to return to MD unless needed. She tolerated light strengthening activitiesthis date. She verbalized understanding of continuation of [...] 65 degrees by 6 weeks (05/29/24) Plan: Patient to return to therapy to continue plan of care. Start Time: 7:40 AM End Time: 8:20 AM [place]/L GER LANGUAGE documented in this encounter Plan of Treatment Not on file documented as of this encounter Visit Diagnoses Diagnosis Unilateral primary osteoarthritis of first carpometacarpal joint, right hand- Primary documented in this encounter Care Teams Continuous Pickling Line Pickler Relationship Specialty Start Date End Date Siva Burgos MD [address] [place] [address] PCP - General 05/15/16 Cori Arreola MD [address] [place] [address] Referring Physician Gynecology 04/10/18 documented as of this encounter
--- OUTSIDE RECORDS SUMMARY | 2024-06-23 18:24 | XMS_ITS | Encounter Summary ---
Author Organization [facility] Address [address] [place] [address] Care Team Providers Care Turbine Technician Name Role Phone Siva Burgos MD Primary Care Provider [phone] Cori Arreola MD Unavailable [phone] Reason for Referral * Diagnostic Imaging (Routine) - Closed Specialty Diagnoses / Procedures Referred By Cubaac t Referred To Contact Diagnoses Postmenopausal bleeding Procedures US Pelvis W EndovaginCori Ray MD [address] [place] [address] Phone: tel: fax: [address] [phone] Referral ID Status Reason Start Date Expiration Date Visits Re quested Visits Authorized [id number] Closed 09/17/2023 10/16/2024 1 1 Reason for Visit * Diagnostic Imaging (Routine) - Closed Specialty Diagnoses / Procedures Referred By Contelijah t Referred To Contact Diagnoses Postmenopausal bleeding Procedures US Pelvis W DarlinevaginCori Ray MD [address] [place] [address] Phone: tel: fax: [address] [phone] Referral ID Status Reason Start Date Expiration Date Visits Re quested Visits Authorized [id number] Closed 09/17/2023 10/16/2024 1 1 Encounter Details Date Type Department Care Team (Latest Contact Info) Description 09/25/2023 3:54 PM CDT - 09/25/2023 11:59 PM CDT Hospital Encounter [facility] [address] [place] [address] Postmenopausal bleeding Discharge Disposition: Discharge to home or self [...] on file 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 Gender Identity Not on file Sexual Orientation Not on file documented as of this encounter Medications at Time of Discharge ascorbic acid (VITAMIN C) 500 mg tablet,chewable Take 1 tablet by mouth 2 times daily until finished 60 tablet/chew tab 05/07/2018 hydroxychloroquin e (PLAQUENIL) 200 mg tablet Take 1 tablet (200 mg total) by mouth daily 02/08/2023 ibuprofen (ibuprofen) 200 mg tab/cap Take by mouth every 6 (six) hours as needed for pain [id number]-ep [id number] [id number] mg capsuleIndication s:stop 5 days before surgery [...] ENDOVAGINAL Schedule Routine, Read Routine (OP Routine) 09/25/2023 5:08 PM CDT Postmenopausal bleeding documented in this encounter Results * US Pelvis W Endovaginal (09/25/2023 5:08 PM CDT) Anatomical Region Laterality Modality Pelvis N/A Ultrasound 09/26/2023 9:29 PM CDT Narrative 09/26/2023 9:32 PM CDT EXAM DESCRIPTION: ?? US PELVIS W ENDOVAGINAL REASON FOR STUDY: ?? n95.0 ?The patient is reportedly postmenopausal. TECHNIQUE: Grayscale ultrasound of the pelvic contents was performed with ?? transabdominal and transvaginal ??transducer. ?? COMPARISON: CT dated 08/03/2023 FINDINGS: UTERUS: ?? The uterus is anteverted. ??The uterus is ??homogenous ??in echotexture and measures ??3.8 x 5.0 x 7.4 ??cm. ENDOMETRIUM: The endometrium measures ??5 mm ??in thickness. RIGHT OVARY: Unilocular cystic mass is seen within the right ovary measuring 7.0 x 5.2 x 6.0 cm a small amount of floating internal debris is noted. ??No nodularity. ??Some blood flow is noted along the periphery. LEFT OVARY: The left ovary measures ??1.6 x 1.3 x 1.9 ??cm. ??There is documentation of color Doppler flow in the left ovary. ??The left ovary appears unremarkable. PELVIC FLUID: ?? There is no evidence of free fluid in the pelvis. OTHER: ?? No other significant findings. IMPRESSION: 1. ?? A 7.0 cm cystic mass within the right adnexa with internal debris. ??No definite septation or nodularity. ??A follow-up pelvic MRI is recommended for further evaluation in this reported postmenopausal patient. THIS IS AN ELECTRONICALLY VERIFIED FINAL REPORT 09/26/2023 9:32 PM - Electronically signed by ??Martin Blue M.D. AG: JESI D: ??09/26/2023 9:32 PM T: ??09/26/2023 9:32 PM Report ID: [id number] Reading Location: ??[id number] Procedure Note Martin Blue MD - 09/26/2023 EXAM DESCRIPTION: US PELVIS W ENDOVAGINAL REASON FOR STUDY: n95.0 The patient is reportedly postmenopausal. TECHNIQUE: Grayscale ultrasound of the pelvic contents was performed with transabdominal and transvaginal transducer. COMPARISON: CT dated 08/03/2023 FINDINGS: UTERUS: The uterus is anteverted. The uterus is homogenous inechotexture and measures 3.8 x 5.0 x 7.4 cm. ENDOMETRIUM: The endometrium measures 5 mm in thickness. RIGHT OVARY: Unilocular cystic mass is seen within the right ovarymeasuring 7.0 x 5.2 x 6.0 cm a small amount of floating internal debris is noted.No nodularity. Some blood flow is noted along the periphery. LEFT OVARY: The left ovary measures 1.6 x 1.3 x 1.9 cm. There is documentation of color Doppler flow in the left ovary. The left ovaryappears unremarkable. PELVIC FLUID: There is no evidence of free fluid in the pelvis. OTHER: No other significant findings. IMPRESSION: 1. A 7.0 cm cystic mass within the right adnexa with internal debris.No definite septation or nodularity. A follow-up pelvic MRI is recommendedfor further evaluation in this reported postmenopausal patient. THIS IS AN ELECTRONICALLY VERIFIED FINAL REPORT 09/26/2023 9:32 PM - Electronically signed by Martin Blue M.D. AG: JESI Report ID: [id number] Reading Location: [place] [address] us Cori Arreola MD IMG US PROCEDURES Final Result documented in this encounter Visit Diagnoses Diagnosis Postmenopausal bleeding documented in this encounter Care Teams Turbine Technician Relationship Specialty Start Date End Date Siva Burgos MD [address] [place] [address] PCP - General 05/15/16 Cori Arreola MD [address] [address] Referring Physician Gynecology 04/10/18 documented as of this encounter
--- OUTSIDE RECORDS SUMMARY | 2024-06-23 18:24 | XMS_ITS | Encounter Summary ---
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 female No referring provider defined for this encounter. ICD-9-CM ICD-10-CM 1. Lateral epicondylitis of left elbow 726.32 M77.12 2. De Quervain's disease (radial styloid tenosynovitis) 727.04 M65.4 PT Progress Note Subjective History of Present Illness: About a year ago she started having some elbow and wrist and thumb discomfort. It continued to get worse. She saw Dr. Das and was referred to PT. She was given an option of an injection and refused at this time. She was given an injection last week and her elbow is feeling much better. Current Symptoms: Pain in left thumb. Pain: Pain location: Left elbow/wrist Current Pain Ratin/10 At worst Pain Ratin/10 At best Pain Ratin/10 Aggravating Factors:certain movements, lifting, fine motor activities Alleviating Factors: rub on it. Patient Goals: Eliminate pain in left elbow and wrist. Objective Inspection: No obvious deformities of left wrist or elbow. Handedness: Patient is right hand dominant. Combat Control Manager Strength: 30# right and 30# left Pinch Strength: Lat pinch 14# right and 12# left Posture: Forward head, rounded shoulder Upper Extremity AROM: Left Right Shoulder Flexion WNL WNL Shoulder Abduction WNL WNL Shoulder External Rotation WNL WNL Shoulder Internal Rotation WNL WNL Shoulder Extension WNL WNL Elbow Flexion 130 WNL Elbow Extension 0 WNL Wrist Flexion 75 75 Wrist Extension 55 55 Pronation 90 90 Supination 90 90 Upper Extremity Strength: Left Right Shoulder Flexion 5/5 5/5 Shoulder Abduction 5/5 5/5 Shoulder Extension 5/5 5/5 Shoulder External Rotation 5/5 5/5 Shoulder Internal Rotation 5/5 5/5 Elbow Flexion 5/5 5/5 Elbow Extension 5/5 5/5 Wrist Flexion 5/5 5/5 Wrist Extension 5/5 5/5 Pronation 5/5 5/5 Supination 5/5 5/5 Palpation: There is slight tenderness elicited to palpation of the left elbow over the lateral epicondyle. There is also tenderness along the lateral aspect of the thumb into the wrist. Special Testing: Nishant's: Positive Mill's: Negative Treatment Provided: HP to left elbow and wrist prior to treatment. US to left elbow STM and IASTM to left elbow and forearm and lateral wrist. HEP for stretching of left wrist and elbow. 3# wrist extension, wrist flexion, and UD/RD Brown gripper Red therabar for pronation/supination Arm bike x 4 min (2 fwd/2bwd) Therabar for Bucky twist Ice and electrical stimulation. Patient requires skilled therapy to restore prior level of function utilizing the treatment and modalities described in this plan of Care. Following the evaluation and extensive patient education regarding diagnosis, prognosis, and treatment goals, the patient (parent/guardian, power of trust and estates attorney bell) actively participated in the creation of the current goals and agrees to the current treatment plan. Assessment/Plan Assessment Assessment details: Leyla has made good progress with her therapy. She no longer reports any elbowdiscomfort. Her print support specialist strength is equal that on the right side. All other strength and range of motion is WNL. Goals STG 1:: Decrease pain level to 0-2/10. Goal status: Progressing STG 2:: Increase score on UEFI to a 66/80. Goal status: Progressing LTG 1:: Increase range of motion of left wrist and elbow. Goal status: Met LTG 2:: Increase strength of left wrist and elbow. Goal status: Met LTG 3:: Decrease tenderness to palpation. Goal status: Met LTG 4:: Patient to return to prior level of function and self care. Goal status: Progressing Plan Start time: 8 End time: 1515 Plan details: Plan to discontinue therapy at this time. STEPHY Lock documented in this encounter Plan of Treatment Not on file documented as of this encounter Visit Diagnoses Diagnosis Lateral epicondylitis of left elbow- Primary De Quervain's disease (radial styloid tenosynovitis) documented in this encounter Care Teams Sewing Machine Repairer Helper Relationship Specialty Start Date End Date Siva Burgos MD [address] [place] [address] PCP - General 05/15/16 Cori Arreola MD [address] [address] Referring Physician Gynecology 04/10/18 documented as of this encounter
--- OUTSIDE RECORDS SUMMARY | 2024-06-23 18:24 | XMS_ITS | Encounter Summary ---
Author Organization [facility] Address [address] [place] [address] Care Team Providers Care Asphalt Tamping Machine Operator Name Role Phone Siva Burgos MD Primary Care Provider [phone] Cori Arreola MD Unavailable [phone] Reason for Visit * Reason Comments OT Treatment * Consultation (Routine) - Pending Review Specialty Diagnoses / Procedures Referred By Contact Referred To Contact Occupational Therapy Diagnoses Unilateral primary osteoarthritis of first carpometacarpal joint, right hand Hipolito Cat MD Phone: tel:[phone] fax:[phone] 1 [facility] Occupational Therapy [address] [place] [address] Phone: tel: fax: Referral ID Status Reason Start Date Expiration Date Visits Requested Visits Authorized [id number] Pending Review Evaluate and Treat 4 04/16/2025 24 13 Encounter Details Date Type Department Care Team (Late st Contact Info) Description 05/05/2024 7:30 AM MEDICAL LABORATORY SCIENTIST Therapy [facility] Occupational Therapy [address] [place] [address] Laly Núñez, OT [address] [place] [address] [place] [address] Unilateral primary osteoarthritis of first carpometacarpal joint, [...] on file Legal Sex Female 9:53 AM MEDICAL LABORATORY SCIENTIST Gender Identity Not on file Sexual Orientation Not on file documented as of this encounter Progress Notes * Laly Núñez, OT - 05/05/2024 7:30 AM CST Occupational Therapy Progress Note Occupational Therapy Visit OT Daily Treatment Note Luciana Yost 1975 Subjective: Pain: 0/10 Patient continues to report rightness in her right thumb. Objective: Active Wrist and Forearm Range of Motion Right Left Extension/ Flexion 56/37 Extension/ Flexion Radial/Ulnar Deviation 10/30 Radial/Ulnar Deviation Supination/ Pronation Supination/ Pronation Active Thumb Range of Motion Right Left MP extension/ flexion 0/30 MP extension/ flexion IP extension/flexion 0/40 IP extension/flexion Palmar abduction 39 Palmar abduction Radial abduction 45 Radial abduction Opposition To SF P2 Opposition Other: Other: Treatment Provided: Alphabet ball x's 1 set Small peg activity (making an O ) Small peg activity (thumb to SF) Bead transfer on string sing 0.5 cm beads x's 2 sets [place] and bottle activity x's 2 sets Silver ball manipulation (3 minutes one direction, 3 minutes opposite direction) Ball exercises for WE/WF and RD/UD x's 3 minutes each Small wrist pipe bender with no added weight x's 3 reps Assessment: Patient presents with decreased ROM of right thumb and wrist. Her incision is well healed. She has no pain at rest. She continues to report a comfortable orthosis fit. She tolerated all therapy activities this date. [...] to continue plan of care. Start Time: 7:35 AM End Time: 8:15 AM Laly Núñez OTR/L CAL LABORATORY SCIENTIST CAL LABORATORY SCIENTIST documented in this encounter Plan of Treatment Not on file documented as of this encounter Visit Diagnoses Diagnosis Unilateral primary osteoarthritis of first carpometacarpal joint, right hand- Primary documented in this encounter Care Teams Asphalt Tamping Machine Operator Relationship Specialty Start Date End Date Siva Burgos MD [address] [place] [address] PCP - General 05/15/16 Cori Arreola MD [address] [address] Referring Physician Gynecology 04/10/18 documented as of this encounter
--- OUTSIDE RECORDS SUMMARY | 2024-06-23 18:24 | XMS_ITS | Encounter Summary ---
Author Organization [facility] Address [address] [place] [address] Care Team Providers Care High School Social Studies Teacher Name Role Phone Siva Burgos MD Primary Care Provider [phone] Cori Arreola MD Unavailable [phone] Reason for Visit * Reason Comments PT Treatment Encounter Details Date Type Department Care Team (Late st Contact Info) Description 02/13/2020 10:15 AM CDT Therapy [facility] - [place] [address] Yoshi Brock, PT De Quervain's disease (radial [...] on file Legal Sex Female 9:53 AM CIRCLE EDGER Gender Identity Not on file Sexual Orientation Not on file documented as of this encounter Progress Notes * Yoshi Brock, PT - 02/13/2020 10:15 AM CDT PT Daily Treatment Note Luciana Yost 1975 Subjective: Patient reports that her elbow feels a little sore today. She cleaned under a couch yesterday. Pain: 7/10 Objective: See treatment provided. Treatment Provided: HP to left elbow and wrist prior to treatment. US to left elbow STM and IASTM to left elbow and forearm and lateral wrist. HEP for stretching of left wrist and elbow. 3# wrist extension, wrist flexion, and UD/RD Brown gripper Red therabar for pronation/supination Arm bike x 4 min (2 fwd/2bwd) Therabar for Bucky twist Ended treatment with ice and e-stim Assessment: Tolerated treatment well. She was instructed to utilize ice after work Plan: Plan to cont per POC. Start Time: 1015 End Time:1120 Yoshi Brock PT documented in this encounter Plan of Treatment Not on file documented as of this encounter Visit Diagnoses Diagnosis De Quervain's disease (radial styloid tenosynovitis)- Primary Lateral epicondylitis of left elbow documented in this encounter Care Teams [employer] Social Studies Teacher Relationship Specialty Start Date End Date Siva Burgos MD [address] [place] [address] PCP - General 05/15/16 Cori Arreola MD [address] [address] Referring Physician Gynecology 04/10/18 documented as of this encounter
--- OUTSIDE RECORDS SUMMARY | 2024-06-23 18:24 | XMS_ITS | Encounter Summary ---
Author Organization [facility] Address [address] [place] [address] Care Team Providers Care Hide And Skin Classer Name Role Phone Siva Burgos MD Primary Care Provider [phone] Cori Arreola MD Unavailable [phone] Reason for Visit * Reason Comments OT Treatment * Consultation (Routine) - Pending Review Specialty Diagnoses / Procedures Referred By Contact Referred To Contact Occupational Therapy Diagnoses Unilateral primary osteoarthritis of first carpometacarpal joint, right hand Hipolito Cat MD Phone: tel:[phone] fax:[phone] [facility] Occupational Therapy [address] [place] [address] Phone: tel: fax: Referral ID Status Reason Start Date Expiration Date Visits Requested Visits Authorized [id number] Pending Review Evaluate and Treat 4 04/16/2025 24 13 Encounter Details Date Type Department Care Team (Late st Contact Info) Description 06/09/2024 2:00 PM UNIFORM PATROL POLICE OFFICER Therapy [facility] Occupational Therapy [address] [place] [address] Laly Núñez, OT [address] [place] [address] [place] [address] Unilateral primary osteoarthritis of first carpometacarpal joint, [...] on file Legal Sex Female 9:53 AM UNIFORM PATROL POLICE OFFICER Gender Identity Not on file Sexual Orientation Not on file documented as of this encounter Progress Notes * Laly Núñez, OT - 06/09/2024 2:00 PM CST Occupational Therapy Visit OT Daily Treatment Note Luciana Yost 1975 Subjective: Pain: 09/25 Location: right thumb [facility] Patient states she caught her thumb on something the other day and it hurt the rest of the day. Sheis having some soreness in her thumb today. Objective: No objective measurements were taken this date. Treatment Provided: MHP x's 10 minutes to increase tissue extensibility Therapist completed scar massage AROM for thumb flexion/extension x's 10 reps WE/WF off of foam wedge using 2 lb dumbbell x's 10 reps x's [address]/UD off of foam wedge using 2 lb dumbbell x's 10 reps x's 3 sets Red therabar stabilize with right and bend with left x's 2 minutes Sensory motor/coordination activities with tennis ball- 2 hand toss x 2 minutes and 1 hand toss andcatch x 2 minutes Alphabet ball x's 1 set Bead transfer activity on string using 0.5 cm beads x's 2 sets Assessment: Patient continues to present with increased scar tissue. She has decreased ROM and strength of right hand/wrist. She has moderate pain this date and feels she has [...] to continue plan of care. Start Time: 2:10 PM End Time: 2:55 PM Laly Núñez OTR/L ORM PATROL POLICE OFFICER documented in this encounter Plan of Treatment Not on file documented as of this encounter Visit Diagnoses Diagnosis Unilateral primary osteoarthritis of first carpometacarpal joint, right hand- Primary documented in this encounter Care Teams Hide And Skin Classer Relationship Specialty Start Date End Date Siva Burgos MD [address] [place] [address] PCP - General 05/15/16 Cori Arreola MD [address] [address] Referring Physician Gynecology 04/10/18 documented as of this encounter
--- OUTSIDE RECORDS SUMMARY | 2024-06-23 18:25 | XMS_ITS | Encounter Summary ---
Author Organization [facility] Address [address] [facility] [address] [place] [address] Care Team Providers Care Linseed Oil Temperer Name Role Phone Siva Burgos MD Primary Care Provider [phone] Reason for Visit * Reason Comments Pain Encounter Details Date Type Department Care Team (Late st Contact Info) Description 04/01/2018 8:30 AM CDT Office Visit [facility] Orthopedics and Sports Medicine [address] [facility] [address] [place] [address] Martin Valdez MD [address] [place] [address] [address] [place], [place] [id number] Carpal tunnel syndrome of left wrist (Primary Dx); Cubital tunnel syndrome on right Social History Tobacco Use Types Packs/Day Years Used Date Smoking Tobacco: Never Smokeless Tobacco: Never Alcohol Use Standard Drinks/Week Comments Yes 0 (1 standard drink = 0.6 oz pur e alcohol) Comments Unknown Sex and Gender Information Value Date Recorded Sex Assigned at Not on file Legal Sex Female 9:53 AM 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 Gender Identity Not on file Sexual Orientation Not on file documented as of this encounter Last Filed Vital Signs Vital Sign Reading Time Taken Comments Blood Pressure 96/60 04/01/2018 8:24 AM CDT Pulse 84 04/01/2018 8:24 AM CDT Temperature - - Respiratory Rate - - Oxygen Saturation - - Inhaled Oxygen Concentration - - Weight 55.8 kg (123 lb) 04/01/2018 8:24 AM CDT Height 157.5 cm (5' 2 ) 04/01/2018 8:24 AM CDT Body Mass Index 22.5 04/01/2018 8:24 AM CDT documented in this encounter Progress Notes * Martin Valdez MD - 04/01/2018 8:30 AM CDT NEW PATIENT VISIT Subjective CHIEF COMPLAINT She had concerns including Pain of the Left Hand. HISTORY OF PRESENT ILLNESS Left hand pain and numbness. It band pain her hand for while Richi more tender throughout the past few years. It has not really gotten worse recently. Just came on years ago in worsened. Pain is sharp burning dull and achy. Mild in severity when the brace did not really make it better all using it and hitting it makes it worse. Her pain is unpredictable. She has tried a brace intake sheet signed by the patient signed by myself she is here with a positive EMG nerve conduction study. Advisory Software Engineer completed by using [employer] Direct speaking software, therefore, transcriptionvariances may occur. Pain Assessment Pain Assessment: 0-10 Pain Score: 3 Pain Location: Hand Pain Orientation: Left Pain Descriptors: Aching, Burning, Sharp, Dull Pain Frequency: Intermittent Pain Onset: Ongoing Clinical Progression: Gradually worsening Aggravating Factors: Stretching, Straightening, Bending Result of Injury: No Work-Related Injury: No Patient's Stated Pain Goal: No pain Pain Interventions: Medication (See MAR) PAST MEDCIAL HISTORY She has no past medical history of Breast cancer (CMS/HCC); Colon cancer (CMS/HCC); History of radiation therapy; Lobular carcinoma in situ of breast; Ovarian cancer (CMS/HCC); Smoking; or Thyroid cancer (CMS/HCC). PAST SURGICAL HISTORY She has a past surgical history that includes Hemorrhoid surgery and Other surgical history (2016). MEDICATIONS She has a current medication list which includes the following prescription(s): norco, ibuprofen, junel 07/07 (), zofran, and prednisone. ALLERGIES She has No Known Allergies. SOCIAL HISTORY She reports that she has never smoked. She has never used smokeless tobacco. She reports that she drinks alcohol. FAMILY HISTORY Her family history includes Cancer in an other family member; Multiple sclerosis in her mother. REVIEW OF SYSTEMS Review of Systems Constitutional: Negative for activity change, appetite change, chills and fever. HENT: Negative for congestion, dental problem, ear pain, hearing loss and voice change. Eyes: Negative for pain and visual disturbance. Respiratory: Negative for apnea, cough, chest tightness and shortness of breath. Cardiovascular: Negative for chest pain, palpitations and leg swelling. Gastrointestinal: Negative for blood in stool, constipation, diarrhea, nausea and vomiting. Endocrine: Negative for cold intolerance and heat intolerance. Genitourinary: Negative for difficulty urinating and hematuria. Skin: Negative for color change, rash and wound. Allergic/Immunologic: Negative for environmental allergies. Neurological: Negative for dizziness, syncope, numbness and headaches. Hematological: Negative for adenopathy. Does not bruise/bleed easily. Psychiatric/Behavioral: Negative for confusion. The patient is not nervous/anxious and is not hyperactive. Objective PHYSICAL EXAM BP 96/60 Pulse 84 Ht 157.5 cm (5' 2 ) Wt 55.8 kg (123 lb) BMI 22.50 kg/m?? Right elbow Palpation Tenderness: present. The patient has tenderness in the ulnar groove area(s). Right hand/wrist The patient has normal inspection, palpation, range of motion, strength, and stability of the righthand and wrist. Palpation The patient has normal palpation of the right hand and wrist. Tenderness: absent. Left hand/wrist Inspection The patient has normal inspection of the left hand and wrist. Intrinsic atrophy: absent Thenar atrophy: absent Palpation The patient has normal palpation of the left hand and wrist. Tenderness: present. Range of motion Index: MP: The patient has normal range of motion of the left wrist. The patient has normal range of motion of the left fingers. Strength Interossei: 4/5 Rotor Balancer: 4/5 Neurovascular The patient has normal vascular on the left side of their body. The patient has normal sensation with exceptions as noted below. Median: paresthesias Tests Phalen's sign: positive Tinel's sign: positive negativeMedian nerve compression:positive REVIEW OF X-RAYS/STUDIES/LABS EMG NERVE CONDUCTION STUDY REPORT ?? PATIENT'S HISTORY This is a 42-year-old patient being evaluated for tingling and numbness of left hand. The study wasordered for evaluation of peripheral neuropathy. ?? NERVE CONDUCTION STUDY Left median orthodromic sensory nerve conduction study showed normal SNAP peak latency, normal amplitude and slow sensory nerve conduction velocity. Left ulnar orthodromic sensory nerve conduction study showed normal SNAP peak latency, normal amplitude and normal sensory nerve conduction velocity. Left radial antidromic sensory nerve conduction study showed normal SNAP peak latency, normal amplitude and normal sensory nerve conduction velocity. Left median and left ulnar motor nerve conduction study showed normal DML, normal CMAP amplitude, normal motor nerve conduction velocity and normal F-wave latency. ?? EMG STUDY The concentric needle electrode examination was performed on left FDI, APB, flexor carpi radialis, biceps, and deltoid. There was no evidence of acute or chronic innervation or reinnervation. The interference pattern is full in all muscles tested. ?? IMPRESSION This is an abnormal study. 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 The needle EMG study of left upper extremity did not show any ongoing denervation. The clinical correlation is recommended. Assessment/Plan Luciana was seen today for pain. Diagnoses and all orders for this visit: Carpal tunnel syndrome of left wrist Cubital tunnel syndrome on right Procedures PLAN I discussed the nature of the patient's condition in clinic today. Patient has tried conservative management for, carpal tunnel syndrome including night splinting and failed. We discussed carpal tunnel release. Risks and benefits of the surgery were discussed with the patient. These include but arenot limited to bleeding, infection, damage to surrounding structures including nerves, and vessels,DVT, PE, stroke, heart attack, and . Patient understands these risks and agreed to proceed with the surgery as described above. All questions and concerns were addressed with the patient prior to surgical consent being established in the office today. The patient will follow up for surgery. . ANNA Mensah MD documented in this encounter Plan of Treatment Not on file documented as of this encounter Visit Diagnoses Diagnosis Carpal tunnel syndrome of left wrist- Primary Cubital tunnel syndrome on right documented in this encounter Care Teams Linseed Oil Temperer Relationship Specialty Start Date End Date Siva Burgos MD [address] [place] [address] PCP - General 05/15/16 documented as of this encounter
--- OUTSIDE RECORDS SUMMARY | 2024-06-23 18:25 | XMS_ITS | Encounter Summary ---
Author Organization [facility] Address [address] [place] [address] Care Team Providers Care Senior Tax Manager Name Role Phone Siva Burgos MD Primary Care Provider [phone] Cori Arreola MD Unavailable [phone] Reason for Visit * Diagnostic Imaging (Routine) - Closed Specialty Diagnoses / Procedures Referred By Travis elizabeth Referred To Contact Diagnoses Abnormal mammogram with microcalcification Procedures Diagnostic Mammogram 2D Left Diagnostic Mammogram Left W Nany Martin CNS Phone: tel: fax: [address] [address] Referral ID Status Reason Start Date Expiration Date Visits Re quested Visits Authorized [id number] Closed 04/10/2018 10/20/2019 1 1 Encounter Details Date Type Department Care Team (Latest Contact Info) Description 04/18/2018 12:19 PM CDT - 04/18/2018 11:59 PM CDT Hospital Encounter [facility] [address] [place] [phone] Nany Cedillo CNS [address] [place] [phone] Abnormal mammogram with microcalcification Discharge Disposition: Discharge to home or self care Social History Tobacco Use Types Packs/Day Years Used Date Smoking Tobacco: Never Smokeless Tobacco: Never Alcohol Use Standard Drinks/Week Comments Yes 0 (1 standard drink = 0.6 oz pur e alcohol) Comments No Sex and Gender Information Value Date Recorded Sex Assigned at Not on file Legal Sex Female 9:53 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 BOOM 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 Gender Identity Not on file Sexual Orientation Not on file documented as of this encounter Medications at Time of Discharge [id number] [id number] mg capsuleIndications :stop 5 days before surgery Take by mouth documented as of this encounter Discharge Disposition Disposition Code Departure Means Destination Discharge to home or self care documented in this encounter Plan of Treatment Not on file documented as of this encounter Procedures Procedure Name Priority Date/Time Associated Diagnosis Comments DIAGNOSTIC MAMMOGRAM 2D LEFT Schedule Routine, Read Routine (OP Routine) 04/18/2018 1:22 PM CDT Abnormal mammogram with microcalcification documented in this encounter Results * Diagnostic Mammogram 2D Left (04/18/2018 1:22 PM CDT) Anatomical Region Laterality Modality Breast Left Mammography 04/18/2018 1:29 PM CDT Impressions 04/19/2018 8:33 AM CDT OVERALL FINAL ASSESSMENT: BI-RADS Category 2: Benign. Annual screening mammography is recommended. Dictated by: Caryl Ruiz M.D. Electronically signed by: Tiera August M.D. Narrative 04/19/2018 8:33 AM CDT EXAMINATION: LEFT UNILATERAL DIGITAL DIAGNOSTIC MAMMOGRAM HISTORY: 42-year-old woman with bilateral breast calcifications. COMPARISON: 04/09/2018 and 03/07/2018. TECHNIQUE: Full field digital mammographic views of the the LEFT breast were performed, including computer aided detection (CAD). BREAST PARENCHYMAL COMPOSITION: The breasts are extremely dense, which lowers the sensitivity of mammography. MAMMOGRAM FINDINGS: Diffuse LEFT breast calcifications, including those in the upper outer quadrant, change configuration and layer on extended hold true lateral magnification views consistent with milk of calcium. ?? Procedure Note Tiera August MD - 04/19/2018 EXAMINATION: LEFT UNILATERAL DIGITAL DIAGNOSTIC MAMMOGRAM HISTORY: 42-year-old woman with bilateral breast calcifications. COMPARISON: 04/09/2018 and 03/07/2018. TECHNIQUE: Full field digital mammographic views of the the LEFT breast were performed, including computer aided detection (CAD). BREAST PARENCHYMAL COMPOSITION: The breasts are extremely dense, which lowers the sensitivity of mammography. MAMMOGRAM FINDINGS: Diffuse LEFT breast calcifications, including those in the upper outer quadrant, change configuration and layer on extended hold true lateral magnification views consistent with milk of calcium. IMPRESSION: OVERALL FINAL ASSESSMENT: BI-RADS Category 2: Benign. Annual screening mammography is recommended. Dictated by: Caryl Ruiz M.D. Electronically signed by: Tiera August M.D. us Nany Cedillo TRUCK CRANE OPERATOR HELPER IMG MAMMO PROCEDURES Final R esult documented in this encounter Visit Diagnoses Diagnosis Abnormal mammogram with microcalcification documented in this encounter Care Teams Senior Tax Manager Relationship Specialty Start Date End Date Siva Burgos MD [address] [place] [address] PCP - General 05/15/16 Cori Arreola MD [address] [address] Referring Physician Gynecology 04/10/18 documented as of this encounter
--- OUTSIDE RECORDS SUMMARY | 2024-06-23 18:25 | XMS_ITS | Encounter Summary ---
Author Organization [facility] Healthcare Address [address] [place] [address] Care Team Providers Care Visitor Use Assistant Name Role Phone Siva Burgos MD Primary Care Provider [phone]- [phone] Cori Arreola MD Unavailable Reason for Visit * Reason Comments PT Initial Eval * Physical Therapy (Routine) - Closed Specialty Diagnoses / Procedures Referred By Contelijah elizabeth Referred To Contact Physical Therapy Diagnoses Lateral epicondylitis of left elbow De Quervain's disease (radial styloid tenosynovitis) Cherie Das MD Phone: tel: fax: [facility] [place] [address] [place] [phone] Phone: tel: fax: Referral ID Status Reason Start Date Expiration Date V isits Requested Visits Authorized [id number] Closed Specialty Services Required 12/24/2019 07/04/2021 12 12 Encounter Details Date Type Department Care Team (Late st Contact Info) Description 01/12/2020 1:00 PM CDT Therapy [facility] [place] [address] Yoshi Brock, PT Lateral epicondylitis of left elbow; De Quervain's disease (radial styloid tenosynovitis) Social History Tobacco Use Types Packs/Day Years Used Date Smoking Tobacco: Never Smokeless Tobacco: Never Alcohol Use Standard Drinks/Week Comments Yes 0 (1 standard drink = 0.6 oz pur e alcohol) Comments No Sex and Gender Information Value Date Recorded Sex Assigned at Not on file Legal Sex Female 9:53 AM TABLE HAND Gender Identity Not on file Sexual Orientation Not on file documented as of this encounter Progress Notes * Yoshi Brock Jarett, PT - 01/12/2020 1:00 PM CDT Physical Therapy Initial Evaluation Luciana Martinez Priyank 1975 44 y.o. female Cherie Das MD [address] [place] [id number] ICD-9-CM ICD-10-CM 1. Lateral epicondylitis of left elbow 726.32 M77.12 Ambulatory referral order to Physical Therapy - 2. De Quervain's disease (radial styloid tenosynovitis) 727.04 M65.4 Ambulatory referral order to Physical Therapy - PT Initial Eval Subjective History of Present Illness: About a year ago she started having some elbow and wrist and thumb discomfort. It continued to get worse. She saw Dr. Das and was referred to PT. She was given an option of an injection and refused at this time. Current Symptoms: Pain in left elbow and forearm down to [...] elbow. Handedness: Patient is right hand dominant. Banana Carrier Strength: 30# right and 15# left Pinch Strength: Lat pinch 13# right and 12# left Posture: Forward head, rounded shoulder Upper Extremity AROM: Left Right Shoulder Flexion WNL WNL Shoulder Abduction WNL WNL Shoulder External Rotation WNL WNL Shoulder Internal Rotation WNL WNL Shoulder Extension WNL WNL Elbow Flexion 130 WNL Elbow Extension (3) WNL Wrist Flexion 70 75 Wrist Extension 45 55 Pronation 90 90 Supination 90 90 Upper Extremity Strength: Left Right Shoulder Flexion 5/5 5/5 Shoulder Abduction 5/5 5/5 Shoulder Extension 5/5 5/5 Shoulder External Rotation 5/5 5/5 Shoulder Internal Rotation 5/5 5/5 Elbow Flexion 4+/5 5/5 Elbow Extension 4+/5 5/5 Wrist Flexion 4/5 5/5 Wrist Extension 4/5 5/5 Pronation 4+/5 5/5 Supination 4+/5 5/5 Palpation: There is tenderness elicited to palpation of the left elbow over the lateral epicondyle into the left forearm musculature. There is also tenderness along the lateral aspect of the thumb into the wrist. Special Testing: Nishant's: Positive Mill's: Positive Treatment Provided: HP to left elbow and wrist prior to treatment. STM and IASTM to left elbow and forearm and lateral wrist. HEP for stretching of left wrist and elbow. Patient requires skilled therapy to restore prior level of function utilizing the treatment and modalities described in this plan of Care. Following the evaluation and extensive patient education regarding diagnosis, prognosis, and treatment goals, the patient (parent/guardian, power of criminal defense attorney bell) actively participated in the creation of the current goals and agrees to the current treatment plan. Assessment/Plan Assessment Impairments: lacks appropriate home exercise program, pain with function, activity tolerance, abnormal or restricted ROM, flexibility, impaired physical strength, muscle length Assessment details: Luciana was seen this date for initial evaluation of her left upper extremity.She reports discomfort in her left elbow, forearm, and wrist. She displays slight decreased range of motion of her left elbow and wrist. She also displays slight decreased strength in her left elbow and wrist. There is tenderness elicited to palpation of the left elbow over the lateral epicondyle into the left forearm musculature. There is also tenderness along the lateral aspect of the thumb into the wrist. Prognosis: good Goals STG 1:: Decrease pain level to 0-2/10. Goal status: New STG 2:: Increase score on UEFI to a 66/80. Goal status: New LTG 1:: Increase range of motion of left wrist and elbow. Goal status: New LTG 2:: Increase strength of left wrist and elbow. Goal status: New LTG 3:: Decrease tenderness to palpation. Goal status: New LTG 4:: Patient to return to prior level of function and self care. Goal status: New Plan Start time: 1258 End time: 1355 Therapy options: will be seen for skilled therapy services Planned modality interventions: cryotherapy, ultrasound, thermotherapy (hydrocollator packs), interferential current Planned therapy interventions: endurance training, fine motor coordination training, functional ROMexercises, home exercise program, joint mobilization, manual therapy, postural training, soft tissue mobilization, strengthening, therapeutic activities, stretching, spinal/joint mobilization, neuromuscular re- education, flexibility Frequency: 2 x/week Duration in weeks: 6 weeks Discussed with: patient Yoshi Brock, LPT documented in this encounter Plan of Treatment Not on file documented as of this encounter Visit Diagnoses Diagnosis Lateral epicondylitis of left elbow De Quervain's disease (radial styloid tenosynovitis) documented in this encounter Orders Outpatient Referral Count Last Ordered Date Fir st Ordered Date AMB REFERRAL ORDER TO PHYSICAL THERAPY 1 documented in this encounter Care Teams Visitor Use Assistant Relationship Specialty Start Date End Date Siva Burgos MD [address] [place] [address] PCP - General 05/15/16 Cori Arreola MD [address] [address] Referring Physician Gynecology 04/10/18 documented as of this encounter
--- OUTSIDE RECORDS SUMMARY | 2024-06-23 18:25 | XMS_ITS | Encounter Summary ---
Author Organization [facility] Healthcare Address [address] [place] [address] Care Team Providers Care Microwave Remote Sensing Scientist Name Role Phone Siva Burgos MD Primary Care Provider [phone] Cori Arreola MD Unavailable [phone] Encounter Details Date Type Department Care Team (Latest Contact Info) Description 05/16/2018 5:57 AM AUTOMOTIVE INSTRUCTOR - 05/16/2018 10:02 AM AUTOMOTIVE INSTRUCTOR Hospital Encounter [facility] Operating Room [address] [place] [address] Martin Valdez MD [address] [place] [address] [address] [place] [id number] Discharge Disposition: Discharge to home or self care Social History Tobacco Use Types Packs/Day Years Used Date Smoking Tobacco: Never Smokeless Tobacco: Never Alcohol Use Standard Drinks/Week Comments Yes 0 (1 standard drink = 0.6 oz pur e alcohol) Comments No Sex and Gender Information Value Date Recorded Sex Assigned at Not on file Legal Sex Female 9:53 AM AUTOMOTIVE INSTRUCTOR Gender Identity Not on file Sexual Orientation Not on file documented as of this encounter Last Filed Vital Signs Vital Sign Reading Time Taken Comments Blood Pressure 91/57 05/16/2018 9:25 AM AUTOMOTIVE INSTRUCTOR Pulse 65 05/16/2018 9:25 AM AUTOMOTIVE INSTRUCTOR Temperature 36.7 ??C (98 ??F) 05/16/2018 8:59 AM AUTOMOTIVE INSTRUCTOR Respiratory Rate 14 05/16/2018 9:25 AM AUTOMOTIVE INSTRUCTOR Oxygen Saturation 100% 05/16/2018 9:25 AM AUTOMOTIVE INSTRUCTOR Inhaled Oxygen Concentration - - Weight 53.6 kg (118 lb 2.7 oz) 05/16/2018 6:18 A M AUTOMOTIVE INSTRUCTOR Height 157.5 cm (5' 2 ) 05/16/2018 6:18 AM AUTOMOTIVE INSTRUCTOR Body Mass Index 21.61 05/16/2018 6:18 AM AUTOMOTIVE INSTRUCTOR documented in this encounter Discharge Instructions * Attachments The following attachments cannot be sent through Care Everywhere. * Carpal Tunnel Syndrome (Discharge Care) (Emirati) * Hydrocodone/Acetaminophen (By mouth) (Emirati) * Ascorbic Acid (Vitamin C) (By mouth) (Emirati) documented in this encounter Medications at Time of Discharge ascorbic acid (VITAMIN C) 500 mg tablet,chewable Take 1 tablet by mouth 2 times daily until finished 60 tablet/chew tab 05/07/2018 [id number] 1,[id number] mg capsuleIndicatio ns:stop 5 days before surgery Take by mouth HYDROcodone-acet aminophen (NORCO) 5-325 mg per tabletIndication s:Pain Take 1-2 tablets by mouth every 4-6 hours as needed for pain 3 tablet 05/07/2018 05/29/2018 documented as of this encounter Discharge Disposition Disposition Code Departure Means Destination Discharge to home or self care documented in this encounter H&P Notes * Martin Valdez MD - 05/16/2018 6:53 AM CST I have reviewed the H&P, examined the patient, and endorse the findings as written. Plan of Care : Based on the above findings, I consider Luciana Yost to be an acceptable risk for : Procedure(s): RELEASE CARPAL TUNNEL hand table MOTIVE INSTRUCTOR Source Note - Keo Kaur PA - 05/06/2018 11:54 AM AUTOMOTIVE INSTRUCTOR Images from the original note were not included. Subjective CHIEF COMPLAINT She had concerns including Pain of the Left Hand. ?? HISTORY OF PRESENT ILLNESS Left hand pain [...] with a positive EMG nerve conduction study. ? Pressure Welder completed by using M*Modal Fluency Direct speaking software, therefore, transcriptionvariances may occur. ? Pain Assessment Pain Assessment: 0-10 Pain Score: 3 Pain Location: Hand Pain Orientation: Left Pain Descriptors: Aching, Burning, Sharp, Dull Pain Frequency: Intermittent Pain Onset: Ongoing Clinical Progression: Gradually worsening Aggravating Factors: Stretching, Straightening, Bending Result of Injury: No Work-Related Injury: No Patient's Stated Pain Goal: No pain Pain Interventions: Medication (See MAR) ?? PAST MEDCIAL HISTORY She has no past medical history of Breast cancer (CMS/HCC); Colon cancer (CMS/HCC); History of radiation therapy; Lobular carcinoma in situ of breast; Ovarian cancer (CMS/HCC); Smoking; or Thyroid cancer (CMS/HCC). ?? PAST SURGICAL HISTORY She has a past surgical history that includes Hemorrhoid surgery and Other surgical history (2017). ?? MEDICATIONS She has a current medication list which includes the following prescription(s): norco, ibuprofen, junel 07/07 (), zofran, and prednisone. ?? ALLERGIES She has No Known Allergies. ?? SOCIAL HISTORY She reports that she has never smoked. She has never used smokeless tobacco. She reports that she drinks alcohol. ?? FAMILY HISTORY Her family history includes Cancer in an other family member; Multiple sclerosis in her mother. ?? REVIEW OF SYSTEMS Review of Systems Constitutional: [...] is not nervous/anxious and is not hyperactive. ? Objective PHYSICAL EXAM BP 96/60 Pulse 84 Ht 157.5 cm (5' 2 ) Wt 55.8 kg (123 lb) BMI 22.50 kg/m?? Right elbow ?? Palpation Tenderness: present. The patient has tenderness in the ulnar groove area(s). ? Right hand/wrist The patient has normal inspection, palpation, range of motion, strength, and stability of the righthand and wrist. ?? Palpation The patient has normal palpation of the right hand and wrist. Tenderness: absent. ?? Left hand/wrist ?? Inspection The patient has normal inspection of the left hand and wrist. Intrinsic atrophy: absent Thenar atrophy: absent ?? Palpation The patient has normal palpation of the left hand and wrist. Tenderness: present. Range of motion Index: MP: The patient has normal range of motion of the left wrist. The patient has normal range of motion of the left fingers. Strength Interossei: 4/5 Air Hole Driller: 4/5 ?? Neurovascular The patient has normal vascular on the left side of their body. The patient has normal sensation with exceptions as noted below. Median: paresthesias ?? Tests Phalen's sign: positive Tinel's sign: positive negativeMedian nerve compression:positive ? REVIEW OF X-RAYS/STUDIES/LABS EMG NERVE CONDUCTION STUDY REPORT ?? PATIENT'S HISTORY This is a 42-year-old patient being evaluated for tingling and numbness of left hand. ??The study was ordered for evaluation of peripheral neuropathy. ?? NERVE CONDUCTION STUDY Left median orthodromic sensory nerve conduction study showed normal SNAP peak latency, normal amplitude and slow sensory nerve conduction velocity. ??Left ulnar orthodromic sensory nerve conduction study showed normal SNAP peak latency, normal amplitude and normal sensory nerve conduction velocity. ??Left radial antidromic sensory nerve conduction study showed normal SNAP peak latency, normal amplitude and normal sensory nerve conduction velocity. ??Left median and left ulnar motor nerve conduction study showed normal DML, normal CMAP amplitude, normal motor nerve conduction velocity and normal F-wave latency. ?? EMG STUDY The concentric needle electrode examination was performed on left FDI, APB, flexor carpi radialis, biceps, and deltoid. ??There was no evidence of acute or chronic innervation or reinnervation. ??Theinterference pattern is full in all muscles tested. ?? IMPRESSION This is an abnormal study. ??There was electrophysiologic evidence suggestive of very mild left median sensory entrapment neuropathy at the flexor retinaculum, for example carpal tunnel syndrome. ??The needle EMG study of left upper extremity did not show any ongoing denervation. ??The clinical correlation is recommended. ?? Assessment ?? Assessment/Plan Luciana was seen today for pain. ?? Diagnoses and all orders for this visit: ?? Carpal tunnel syndrome of left wrist ?? Cubital tunnel syndrome on right ? Procedures ?? PLAN I discussed the nature of the [...] The patient will follow up for surgery. Reviewed and no changes since consent was signed. MOTIVE INSTRUCTOR * Keo Kaur PA - 05/06/2018 11:54 AM CST Images from the original note were not included. Subjective CHIEF COMPLAINT She had concerns including Pain of the Left Hand. ?? HISTORY OF PRESENT ILLNESS Left hand pain [...] with a positive EMG nerve conduction study. ? Pressure Welder completed by using M*Modal Fluency Direct speaking software, therefore, transcriptionvariances may occur. ? Pain Assessment Pain Assessment: 0-10 Pain Score: 3 Pain Location: Hand Pain Orientation: Left Pain Descriptors: Aching, Burning, Sharp, Dull Pain Frequency: Intermittent Pain Onset: Ongoing Clinical Progression: Gradually worsening Aggravating Factors: Stretching, Straightening, Bending Result of Injury: No Work-Related Injury: No Patient's Stated Pain Goal: No pain Pain Interventions: Medication (See MAR) ?? PAST MEDCIAL HISTORY She has no past medical history of Breast cancer (CMS/HCC); Colon cancer (CMS/HCC); History of radiation therapy; Lobular carcinoma in situ of breast; Ovarian cancer (CMS/HCC); Smoking; or Thyroid cancer (CMS/HCC). ?? PAST SURGICAL HISTORY She has a past surgical history that includes Hemorrhoid surgery and Other surgical history (2016). ?? MEDICATIONS She has a current medication list which includes the following prescription(s): norco, ibuprofen, junel 07/07 (), zofran, and prednisone. ?? ALLERGIES She has No Known Allergies. ?? SOCIAL HISTORY She reports that she has never smoked. She has never used smokeless tobacco. She reports that she drinks alcohol. ?? FAMILY HISTORY Her family history includes Cancer in an other family member; Multiple sclerosis in her mother. ?? REVIEW OF SYSTEMS Review of Systems Constitutional: [...] is not nervous/anxious and is not hyperactive. ? Objective PHYSICAL EXAM BP 96/60 Pulse 84 Ht 157.5 cm (5' 2 ) Wt 55.8 kg (123 lb) BMI 22.50 kg/m?? Right elbow ?? Palpation Tenderness: present. The patient has tenderness in the ulnar groove area(s). ? Right hand/wrist The patient has normal inspection, palpation, range of motion, strength, and stability of the righthand and wrist. ?? Palpation The patient has normal palpation of the right hand and wrist. Tenderness: absent. ?? Left hand/wrist ?? Inspection The patient has normal inspection of the left hand and wrist. Intrinsic atrophy: absent Thenar atrophy: absent ?? Palpation The patient has normal palpation of the left hand and wrist. Tenderness: present. Range of motion Index: MP: The patient has normal range of motion of the left wrist. The patient has normal range of motion of the left fingers. Strength Interossei: 4/5 Air Hole Driller: 4/5 ?? Neurovascular The patient has normal vascular on the left side of their body. The patient has normal sensation with exceptions as noted below. Median: paresthesias ?? Tests Phalen's sign: positive Tinel's sign: positive negativeMedian nerve compression:positive ? REVIEW OF X-RAYS/STUDIES/LABS EMG NERVE CONDUCTION STUDY REPORT ?? PATIENT'S HISTORY This is a 42-year-old patient being evaluated for tingling and numbness of left hand. ??The study was ordered for evaluation of peripheral neuropathy. ?? NERVE CONDUCTION STUDY Left median orthodromic sensory nerve conduction study showed normal SNAP peak latency, normal amplitude and slow sensory nerve conduction velocity. ??Left ulnar orthodromic sensory nerve conduction study showed normal SNAP peak latency, normal amplitude and normal sensory nerve conduction velocity. ??Left radial antidromic sensory nerve conduction study showed normal SNAP peak latency, normal amplitude and normal sensory nerve conduction velocity. ??Left median and left ulnar motor nerve conduction study showed normal DML, normal CMAP amplitude, normal motor nerve conduction velocity and normal F-wave latency. ?? EMG STUDY The concentric needle electrode examination was performed on left FDI, APB, flexor carpi radialis, biceps, and deltoid. ??There was no evidence of acute or chronic innervation or reinnervation. ??Theinterference pattern is full in all muscles tested. ?? IMPRESSION This is an abnormal study. ??There was electrophysiologic evidence suggestive of very mild left median sensory entrapment neuropathy at the flexor retinaculum, for example carpal tunnel syndrome. ??The needle EMG study of left upper extremity did not show any ongoing denervation. ??The clinical correlation is recommended. ?? Assessment ?? Assessment/Plan Luciana was seen today for pain. ?? Diagnoses and all orders for this visit: ?? Carpal tunnel syndrome of left wrist ?? Cubital tunnel syndrome on right ? Procedures ?? PLAN I discussed the nature of the [...] The patient will follow up for surgery. Reviewed and no changes since consent was signed. MOTIVE INSTRUCTOR documented in this encounter Miscellaneous Notes * Op Note - Martin Valdez MD - 05/16/2018 7:57 AM CST Operative Report SURGEON: Martin Valdez MD SURGICAL TEAM: Surgeon(s) and Role: * Martin Valdez MD - Primary DATE OF SURGERY : 05/16/2018 PREOPERATIVE DIAGNOSIS: See preoperative H and P POSTOPERATIVE DIAGNOSIS: Post-op Diagnosis * Carpal tunnel syndrome on left [G56.02] PROCEDURE: RELEASE CARPAL TUNNEL hand table (L) ANESTHESIA: General PA-C: Yniguez IMPLANTS: Nothing was implanted during the procedure OPERATIVE DETAILS Estimated Blood Loss: No blood loss documented. Operation in detail: Operative indication Patient failed conservative treatment of hisleft carpal tunnel syndrome and elected to have the above-named procedure informed consent was obtained from the patient patient understood the risk and benefits of procedure included but not limited to stroke bleeding infection damage to nerves arteries veins need for additional procedures Operation in detail patient taken the OR general anesthetic was performedleft upper extremity with shaving preoperatively clean with alcohol and prepped and draped in standard technique using ChloraPrep standard time-out was performed operative extremity was identified which was also marked preoperatively a standard carpal tunnel incision was marked the right upper extremity was exsanguinated andthe tourniquet was inflated for approximately 10 minutes skin incision was made and careful dissection down to the transverse carpal ligament was performed under direct visualization the transverse carpal ligament was released proximally and distally including the deep fascia of the forearm the wound was irrigated the proximal aspect of the incision was injected with Marcaine and the wound was closed with 4-0 nylon dressings were placed and the patient was extubated and taken to recovery room in stable condition needle counts sponge counts and instrument counts were correct at the end the case. Postoperative plan patient will follow standard carpal tunnel release protocol Complications: None Condition on Discharge from the operating room was stable Martin Valdez MD Date: 05/16/2018 Time: 12:43 PM MOTIVE INSTRUCTOR * Pre-Procedure Instructions - Celina Melendrez RN - 05/02/2018 4:24 PM CST We are pleased that you and your doctor have chosen [facility] for your surgery. We hope that the following information will help make your visit a pleasant one. Surgery Date: 05/16/2018 Before your surgery: ?? Notify your doctor of ANY change in your health such as a cold, sore throat, fever, any infection or a change in the problem for which you are having your surgery. ?? Follow any instructions given to you by your doctor or surgeon. One week before surgery STOP taking: ?? All herbal supplements ?? Aspirin (not ordered by your doctor) ?? Aleve, Advil, Motrin, Ibuprofen, or other similar medications (Tylenol is okay). 24 hours before your surgery: ?? No smoking or alcoholic drinks. Night before your surgery: ?? Do not eat or drink anything after midnight. ?? Follow surgeon's instructions for anti-bacterial shower night before and morning of surgery. Day of surgery: ?? Do not swallow any water when you brush your teeth. ?? ONLY take these pills with a tiny sip of water. ?? Use no make-up, nail vietnamese, lotions, oils or powders on your skin. ?? Wear comfortable clothes that will not be tight in the area of your surgery. ?? Leave all valuables and jewelry (including all body piercing jewelry) at home. ?? Please bring your a photo ID and insurance cards with you. ?? Check in at the Ambulatory Surgery Check-In. ?? If you are 17 years old or younger, a parent or guardian must come with you. After your Outpatient Surgery: ?? You must have a responsible adult to drive you home, you will not be allowed to drive or take a cab home. ?? We recommend you have someone stay with you for 24 hours after your surgery. What to bring if you are spending the night with us: ?? Bring toiletry items such as: robe, slippers, toothbrush, toothpaste, brush or comb. ?? Bring contact lens, hearing aids, glass cases and denture container if you use any of these items. ?? The hospital will provide you with a gown. Questions or concerns: ?? If you have any questions or concerns regarding your procedure, contact your surgeon as soon as possible. ?? If you have questions regarding your Pre-Admission Testing, please call us. We can be reached atthe number posted at the top of the page. MOTIVE INSTRUCTOR documented in this encounter Plan of Treatment Not on file documented as of this encounter Procedures Procedure Name Priority Date/Time Associated Diagnosis Comments RELEASE CARPAL TUNNEL 05/16/2018 7:24 AM AUTOMOTIVE INSTRUCTOR Carpal tunnel syndrome on left Special Needs hand tablePrev scheduled on 04/25 POCT HCG, URINE Routine 05/16/2018 6:17 AM AUTOMOTIVE INSTRUCTOR documented in this encounter Results * POCT hCG, urine (05/16/2018 6:17 AM AUTOMOTIVE INSTRUCTOR) HCG, ur, POC Negative Lot Number [id number] QC Backgroud Clear Acceptable QC Control Line Acceptable Urine 05/16/2018 6:17 AM AUTOMOTIVE INSTRUCTOR Yunier Sultana MD POINT OF CARE TEST ORD ERABLES Final Result documented in this encounter Visit Diagnoses Diagnosis Carpal tunnel syndrome on left- Primary Carpal tunnel syndrome documented in this encounter Admitting Diagnoses Diagnosis Carpal tunnel syndrome on left Carpal tunnel syndrome documented in this encounter Administered Medications Inactive Administered Medications - up to 3 most recent administrations Medication Order MAR Action Action Date Dose Rate Site HYDROcodone-acetaminophen (NORCO) 5-325 mg per tablet 1 tablet 1 tablet, oral, Once, On La 05/16/18 at 0945, For 1 dose, Indications: PainIndications:Pain Given 05/16/2018 9:08 AM AUTOMOTIVE INSTRUCTOR 1 tablet Lactated Ringer's (LR) infusion 30 mL/hr, intravenous, Continuous, Starting on La 05/16/18 at 0645, Pre-Op New Bag 05/16/2018 6:45 AM AUTOMOTIVE INSTRUCTOR 30 mL/hr 30 mL/ hr documented in this encounter Historical Medications * This list may reflect changes made after this encounter. [id number]-epa -phospho-ast 1,[id number] mg capsuleIndications :stop 5 days before surgery Take by mouth added in this encounter Active and Recently Administered Medications Times are shown in AUTOMOTIVE INSTRUCTOR. Scheduled Medication Order 05/14/2018 05/15/2018 05/16/2018 HYDROcodone-acetaminophen (NORCO) 5-325 mg per tablet 1 tablet (COMPLETED) 1 tablet, oral, Once, On La 05/16/18 at 0945, For 1 dose, Indications: Pain 0908 (Given - Provid er: Debbie Porter RN) Continuous Medication Order 05/14/2018 05/15/2018 05/16/2018 Lactated Ringer's (LR) infusion 30 mL/hr, intravenous, Continuous, Starting on La 05/16/18 at 0645, Pre-Op 0645 (New Bag - Prov ider: Debbie Porter RN) Lactated Ringer's (LR) infusion 125 mL/hr, intravenous, Continuous, Starting on La 05/16/18 at 0845, Phase I 0845 (Due) PRN Medication Order 05/14/2018 05/15/2018 05/16/2018 bupivacaine (MARCAINE) 0.5 % (5 mg/mL) preservative free injection (CANCELED) As needed, Starting on La 05/16/18 at 0759, Intra-Op 0804 (Given - Provid er: LAURO Martines) sodium chloride 0.9 % irrigation (CANCELED) As needed, Starting on La 05/16/18 at 0759, Intra-Op 0759 (Given - Provid er: Martin Valdez MD - Comment: irrigation and clean up) documented in this encounter Orders Medications Ordered That Jacky ht Not Have Been Administered Count Last Ordered Date First Ordered Date bupivacaine (MARCAINE) 0.5 % (5 mg/mL) preservative free injection 1 05/16/2018 ceFAZolin (ANCEF) 1000 mg in 10 mL sterile water (premix) 1 05/16/2018 diphenhydrAMINE (BENADRYL) i njection 12.5 mg 1 05/16/2018 fentaNYL (SUBLIMAZE) preserv ative free injection 25 mcg 1 05/16/2018 fentaNYL (SUBLIMAZE) preserv ative free injection 50 mcg 1 05/16/2018 Lactated Ringer's (LR) infusion 1 8 meperidine (DEMEROL) preserv ative free injection 15 mg 1 05/16/2018 naloxone (NARCAN) 0.4 mg/mL injection 0.04-0.4 mg 1 05/16/2018 sodium chloride 0.9 % irrigation 1 05/16/20 18 sodium chloride 0.9% flush 0.5-20 mL 1 04/19 Diet Count Last Ordered Date First Orde red Date ADULT DISCHARGE DIET 1 05/16/2018 Nursing Count Last Ordered Date First Orde red Date DISCHARGE ACTIVITY 3 05/16/2018 DISCHARGE CALL PROVIDER 5 05/16/2018 DISCHARGE DRESSING 1 05/16/2018 Admission Count Last Ordered Date First Orde red Date ASSIGN PATIENT STATUS 1 05/16/2018 documented in this encounter Care Teams Microwave Remote Sensing Scientist Relationship Specialty Start Date End Date Siva Burgos MD [address] [place] [address] PCP - General 05/15/16 Cori Arreola MD [address] [address] Referring Physician Gynecology 04/10/18 documented as of this encounter
--- OUTSIDE RECORDS SUMMARY | 2024-06-23 18:25 | XMS_ITS | Encounter Summary ---
Author Organization [facility] Healthcare Address [address] [place] [address] Care Team Providers Care Sewer Hand Name Role Phone Siva Burgos MD Primary Care Provider [phone] Cori Arreola MD Unavailable [phone] Encounter Details Date Type Department Care Team (Late st Contact Info) Description 05/16/2018 7:35 AM FURNACE CHECKER Anesthesia Event [facility] Operating Room [address] [place] [address] [place] [id number] [address] Renate Leblanc CRNA [address] [place] [id number] Anesthesia Record Procedure Summary Procedure Name Responsible Anesthesiologist Anesthesia Start Time Anesthesia Stop Time RELEASE CARPAL TUNNEL hand table (Left: Wrist) Laith Liu MD 05/16/18 0735 05/16/18 0821 Events Date Time Event Comment 05/16/2018 0706 0734 In Room 0735 An Start 0738 An Start Data 0738 An Induction The patient was reevaluated immediately before moderate or deep sedation use and before anesthesia induction. 0739 An LMA 0757 Proc Start 0757 Incision Start 0813 Proc Fin 0815 an stop data 0817 Out of Room 0821 Handoff to RN I completed my handoff [...] Patient disposition at the time of handoff: PACU 0821 An Stop 0823 Release from care Meds Name Total midazolam 2 mg fentaNYL 50 mcg propofol 200 mg lidocaine (cardiac) syringe 2 % 50 mg ceFAZolin 2,000 mg ondansetron 4 mg dexamethasone 10 mg * Agents Name O2 N2O Sevoflurane Inspired Sevoflurane * Blood No blood administrations on file. Lines, Drains, and Airways Type Details Placement Removal Peripheral IV Placement Date: 05/16/18; Placement Time: 0630; Catheter Size: 20 G; Orientation: Right; Location: Arm; Removal Date: 05/16/18; Removal Time: 0949 05/16/18 0630 by Debbie Porter RN 05/16/18 0949 by Debbie Porter RN Supraglottic Airway Placement Date: 05/16/18; Placement Time: 0754 (created via procedure documentation); Mask Ventilation: 1; Size: 3; Insertion Attempts: 1; Removal Date: 05/16/18; Removal Time: 0800 05/16/18 0754 by Renate Leblanc CRNA 05/16/18 0800 by Renate Leblanc CRNA RETIRED Surgical Site 05/16/18; 0805; Le ft; Hand; 05/20/24 (Retired LDA, Removed/[facility] by [facility] with LDA Utility); 1213 (Retired LDA, Removed/Completed by [facility] with LDA Utility) 05/16/18 0805 by Guerita Wahl RN 05/20/24 1213 by Discharge Provider, Automatic documented in this encounter Social History Tobacco Use Types Packs/Day Years Used Date Smoking Tobacco: Never Smokeless Tobacco: Never Alcohol Use Standard Drinks/Week Comments Yes 0 (1 standard drink = 0.6 oz pur e alcohol) Comments No Sex and Gender Information Value Date Recorded Sex Assigned at Not on file Legal Sex Female 9:53 AM FURNACE CHECKER Gender Identity Not on file Sexual Orientation Not on file documented as of this encounter OR Notes * Anesthesia Postprocedure Evaluation - Renate Leblanc CRNA - 05/16/2018 8:22 AM CST Patient: Luciana Yost Procedure Summary Date: 05/16/18 Room / Location: [facility] OR [address] [place] [address] OPERATING ROOM Anesthesia Start: 734 Anesthesia Stop: 820 Procedure: RELEASE CARPAL TUNNEL hand table (Left Wrist) Diagnosis: Carpal tunnel syndrome on left (Carpal tunnel syndrome on left [G56.02]) Provider: Martin Valdez MD Responsible Provider: Laith Liu MD Anesthesia Type: general ASA Status: 1 Anesthesia Type: general Last vitals BP 99/64 Pulse 79 Temp 36.1 ??C (97 ??F) (Temporal) Resp 16 SpO2 100% Anesthesia Post Evaluation Patient location during evaluation: PACU Patient participation: waiting for patient participation 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 Pain score: 0 Pain management: adequate Airway patency: adequate Anesthetic complications: no Cardiovascular status: acceptable Respiratory status: acceptable Hydration status: acceptable Nausea/Vomiting status: none ACE CHECKER * Anesthesia Procedure Notes - Renate Leblanc CRNA - 05/16/2018 7:53 AM CSTAssociated Order(s): ANESTHESIA INTUBATION Airway Patient location: OR Urgency: elective Indications for airway management: anesthesia Difficult airway: no Staff: Placed by: PROOF TECHNICIAN: RENATE LEBLANC Emergent airway documentation: Risks and benefits discussed: yes Consent obtained: yes Consent given by: patient Airway prep: Preoxygenated: yes Patient position: sniffing MILS maintained throughout: yes Mask difficulty assessment: 1 - vent by mask Sedation level during airway: GA Final airway details: Final airway type: supraglottic airway Final supraglottic airway: unique SGA size: 3 Airway seal pressure: 30 cm H2O Number of attempts: 1 Ventilation between attempts: none ACE CHECKER * Anesthesia Preprocedure Evaluation - Frankie Ryan CRNA - 05/16/2018 7:06 AM CST Anesthesia Evaluation Luciana Yost is a 42 y.o. female Procedure(s): RELEASE CARPAL TUNNEL hand table HISTORY Past Medical History Information obtained from: patient and chart. Neurological Neuro/Psych system: negative Cardiovascular Cardiac system: negative Respiratory Respiratory system: negative Hepatic / Heme Hepatic/Heme system: negative Gastrointestinal GI system: negative Renal / Renal/ system: negative Musculoskeletal/Pain + Osteoarthritis Endocrine / Other Endocrine/Other system: negative Day of Surgery assessments + Possibility of assessed - HCG negative (see labs). Patient Active Problem List Diagnosis ??? Disorder of gallbladder ??? Carpal tunnel syndrome on left ??? Abnormal findings on diagnostic imaging of breast Past Medical History: Diagnosis Date ??? Arthritis Past Surgical History: Procedure Laterality Date ??? CHOLECYSTECTOMY 2017 ??? HEMORRHOID SURGERY Hemorrhoidectomy ??? OTHER SURGICAL HISTORY 2016 Single Site DaVinci Cholecystectomy OB History Para Term AB Living 3 3 3 SAB TAB Ectopic Multiple Live Births No Known Allergies HOME MEDICATIONS : [id number] [id number] mg capsule ascorbic acid (VITAMIN C) 500 mg tablet,chewable HYDROcodone-acetaminophen (NORCO) 5-325 mg per tablet Current Facility-Administered Medications: ??? ceFAZolin (ANCEF) 1000 mg in 10 mL sterile water (premix), 2,000 mg, intravenous, Once ??? Lactated Ringer's (LR) infusion, 30 mL/hr, intravenous, Continuous, Last Rate: 30 mL/hr at 05/16/18 0645, 30 mL/hr at 05/16/18 0645 ??? sodium chloride 0.9% flush 0.5-20 mL, 0.5-20 mL, intra-catheter, PRN Social History Smoking Status ??? Never Smoker Smokeless Tobacco ??? Never Used Alcohol Use ??? Yes Drug Use No Family History Problem Relation Age of Onset ??? Multiple sclerosis Mother Multiple sclerosis; ??? Cancer Other ??? Prostate cancer Father 68 PAT Physical Exam Vitals: 05/16/18 0618 BP: 101/68 Pulse: 60 Resp: 14 Temp: 36.6 ??C (97.8 ??F) SpO2: 100% PT: No results found for requested labs within last 720 hours. INR: No results found for requested labs within last 720 hours. APTT: No results found for requested labs within last 720 hours. Hgb A1C: No results found for requested labs within last 720 hours. CBC RBC: No results found for requested labs within last 720 hours. RDW: No results found for requested labs within last 720 hours. MCHC: No results found for requested labs within last 720 hours. MCH: No results found for requested labs within last 720 hours. MCV: No results found for requested labs within last 720 hours. Hct: No results found for requested labs within last 720 hours. Hgb: No results found for requested labs within last 720 hours. WBC: No results found for requested labs within last 720 hours. MPV: No results found for requested labs within last 720 hours. Platelets: No results found for requested labs within last 720 hours. RDW CV: No results found for requested labs within last 720 hours. RDW Sd: No results found for requested labs within last 720 hours. BMP Glucose: No results found for requested labs within last 720 hours. Calcium: No results found for requested labs within last 720 hours. Sodium: No results found for requested labs within last 720 hours. Potassium: No results found for requested labs within last 720 hours. CO2: No results found for requested labs within last 720 hours. Chloride: No results found for requested labs within last 720 hours. BUN: No results found for requested labs within last 720 hours. Creatinine: No results found for requested labs within last 720 hours. DOS Physical Exam Medical history, medications, and allergies reviewed. Attestation: I endorse the findings of the anesthesia pre-evaluation assessment dated: 05/16/2018. Airway Exam: Mallampati: I Cervical ROM: FROM TM distance: >4 Jaw ROM: full Cardiovascular Exam: Rate: regular Rhythm: regular Pulmonary Exam: LCTA, bilat Dental Exam: Appears intact Current state: Patient's current state is cooperative and interactive. Anesthesia Plan ASA 1 My patient is approved for the Anesthesia Controlled Medication protocol when under care of a PROOF TECHNICIAN Planned anesthesia: General Team communication plan: LMA Induction: Induction: intravenous. Postoperative Plan: Postoperative administration opioids intended. No postoperative mechanical ventilation intended. Informed Consent: Discussed plan with attending. Anesthesia [...] and agree to proceed. All questions answered. ACE CHECKER ACE CHECKER documented in this encounter Plan of Treatment Not on file documented as of this encounter Procedures Procedure Name Priority Date/Time Associated Diagnosis Comments NJ AN ELECTIVE SUPRAGLOTTIC AIRWAY Routine 05/16/2018 7:53 AM FURNACE CHECKER Procedure Note - Renate Leblanc CRNA - 05/16/2018 7:53 AM CSTThis note is in progress. Airway Patient location: OR Urgency: elective Indications for airway management: anesthesia Difficult airway: no Staff: Placed by: PROOF TECHNICIAN: RENATE LEBLANC Emergent airway documentation: Risks and benefits discussed: yes Consent obtained: yes Consent given by: patient Airway prep: Preoxygenated: yes Patient position: sniffing MILS maintained throughout: yes Mask difficulty assessment: 1 - vent by mask Sedation level during airway: GA Final airway details: Final airway type: supraglottic airway Final supraglottic airway: unique SGA size: 3 Airway seal pressure: 30 cm H2O Number of attempts: 1 Ventilation between attempts: none documented in this encounter Visit Diagnoses Not on filedocumented in this encounter Administered Medications Inactive Administered Medications - up to 3 most recent administrations Medication Order MAR Action Action Date Dose Rate Site ceFAZolin (ANCEF) injection intravenous, As needed, Starting on La 05/16/18 at 0740, Anesthesia Intra-op Given 05/16/2018 7:40 AM FURNACE CHECKER 2,000 mg dexamethasone (DECADRON) injection solution intravenous, Administer over 2 Minutes, As needed, Starting on La 05/16/18 at 0800, Anesthesia Intra-op Given 05/16/2018 8:00 AM FURNACE CHECKER 10 mg fentaNYL (SUBLIMAZE) preservative free injection intravenous, As needed, Starting on La 05/16/18 at 0730, Anesthesia Intra-op Given 05/16/2018 7:30 AM FURNACE CHECKER 50 mcg lidocaine (cardiac) (XYLOCAINE) preservative free injection intravenous, As needed, Starting on La 05/16/18 at 0735, Anesthesia Intra-op, Indications: Ventricular ArrhythmiasIndications:Ventricul ar Arrhythmias Given 05/16/2018 7:35 AM FURNACE CHECKER 50 mg midazolam (VERSED) preservative free injection intravenous, Administer over 2 Minutes, As needed, Starting on La 05/16/18 at 0730, Anesthesia Intra-op Given 05/16/2018 7:30 AM FURNACE CHECKER 2 mg ondansetron (ZOFRAN) injection intravenous, Administer over 2 Minutes, As needed, nausea, vomiting, Starting on La 05/16/18 at 0800, Anesthesia Intra-op Given 05/16/2018 8:00 AM FURNACE CHECKER 4 mg propofol (DIPRIVAN) IV intravenous, As needed, Starting on La 05/16/18 at 0735, Anesthesia Intra-op Given 05/16/2018 7:35 AM FURNACE CHECKER 200 mg documented in this encounter Orders Procedures Count Last Ordered Date First Orde red Date ANESTHESIA INTUBATION 1 05/16/2018 documented in this encounter Care Teams Sewer Hand Relationship Specialty Start Date End Date Siva Burgos MD [address] [place] [address] PCP - General 05/15/16 Cori Arreola MD [address] [address] Referring Physician Gynecology 04/10/18 documented as of this encounter
--- OUTSIDE RECORDS SUMMARY | 2024-06-23 18:25 | XMS_ITS | Encounter Summary ---
Author Organization [facility] Address [address] [place] [address] Care Team Providers Care Sales Administration Specialist Name Role Phone Siva Burgos MD Primary Care Provider [phone] Reason for Referral * Diagnostic Imaging (Routine) - Closed Specialty Diagnoses / Procedures Referred By Travis elizabeth Referred To Contact Diagnoses Encounter for screening mammogram for malignant neoplasm of breast Procedures Screening Mammogram Bilateral W Cori Mayers MD Phone: tel: fax: [address] [phone] Referral ID Status Reason Start Date Expiration Date Visits Re quested Visits Authorized [id number] Closed 02/22/2018 09/03/2019 1 1 Reason for Visit * Diagnostic Imaging (Routine) - Closed Specialty Diagnoses / Procedures Referred By Travis elizabeth Referred To Contact Diagnoses Encounter for screening mammogram for malignant neoplasm of breast Procedures Screening Mammogram Bilateral W Cori Mayers MD Phone: tel: fax: [address] [phone] Referral ID Status Reason Start Date Expiration Date Visits Re quested Visits Authorized [id number] Closed 02/22/2018 09/03/2019 1 1 Encounter Details Date Type Department Care Team (Late st Contact Info) Description 03/15/2018 7:56 AM CDT - 03/15/2018 11:59 PM CDT Hospital Encounter [facility] [address] [place] [id number] Cori Arreola MD [address] [place] [address] Encounter for screening mammogram for malignant neoplasm of breast Discharge Disposition: Discharge to home or self care Social History Tobacco Use Types Packs/Day Years Used Date Smoking Tobacco: Never Smokeless Tobacco: Never Alcohol Use Standard Drinks/Week Comments Yes 0 (1 standard drink = 0.6 oz pur e alcohol) Comments Unknown Sex and Gender Information Value Date Recorded Sex Assigned at Not on file Legal Sex Female 9:53 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 Gender Identity Not on file Sexual Orientation Not on file documented as of this encounter Medications at Time of Discharge HYDROcodone-aceta minophen (NORCO) 5-325 mg per tablet take 1 tablet by oral route every 4 - 6 hours as needed for pain 0 0 05/14/2016 04/18/2018 ibuprofen (ADVIL,MOTRIN) 800 mg tablet take 1 tablet by oral route 3 times every day with food 0 0 05/14/2016 04/18/2018 JUNEL 07/07, 21, 1-20 mg-mcg per tablet 12/26/2017 04/18/2018 ondansetron (ZOFRAN, HYDROCHLORIDE,) 4 mg tablet take 1 tablet by oral route every 6 hours prn 0 0 05/14/2016 04/18/2018 predniSONE (DELTASONE) 10 mg tablet 02/15/2018 04/18/2018 documented as of this encounter Discharge Disposition Disposition Code Departure Means Destination Discharge to home or self care documented in this encounter Plan of Treatment Not on file documented as of this encounter Procedures Procedure Name Priority Date/Time Associated Diagnosis Comments SCREENING MAMMOGRAM BILATERAL W SAUNDRA Schedule Routine, Read Routine (OP Routine) 03/15/2018 8:14 AM CDT Encounter for screening mammogram for malignant neoplasm of breast documented in this encounter Results * (ABNORMAL) Screening Mammogram Bilateral W Saundra [...] MD IMG MAMMO PROCEDURES Fin al Result documented in this encounter Visit Diagnoses Diagnosis Encounter for screening mammogram for malignant neoplasm of breast documented in this encounter Care Teams Sales Administration Specialist Relationship Specialty Start Date End Date Siva Burgos MD [address] [place] [address] PCP - General 05/15/16 documented as of this encounter
--- OUTSIDE RECORDS SUMMARY | 2024-06-23 18:25 | XMS_ITS | Encounter Summary ---
Author Organization [facility] Address [address] [facility] [address] [place] [id number] Care Team Providers Care Family Medicine Physician Assistant Name Role Phone Siva Burgos MD Primary Care Provider [phone] Cori Arreola MD Unavailable [phone] Reason for Referral * Physical Therapy (Routine) - Closed Specialty Diagnoses / Procedures Referred By Travis elizabeth Referred To Contact Physical Therapy Diagnoses Lateral epicondylitis of left elbow De Quervain's disease (radial styloid tenosynovitis) Cherie Das MD Phone: tel: fax: [facility] [address] [place] [phone] Phone: tel: fax: Referral ID Status Reason Start Date Expiration Date V isits Requested Visits Authorized [id number] Closed Specialty Services Required 12/24/2019 07/04/2021 12 12 Question Answer PTRFR PT Evaluate and Treat Therapy options discussed with patient? Yes Location provided for therapy services is: Patient requested/Patient preferred Please select the performing region: External Order [[id number]] To loc/pos [facility] [[id number]] # of visits: 12 Comments Evaluate and Treat- Strengthening exercises for upper arm, forearm, wrist, and hand. Stretching for forearm. [place]. Modalities prn. HEP. 2 x week for 6 weeks. * Diagnostic Imaging (Routine) - Closed Specialty Diagnoses / Procedures Referred By Travis elizabeth Referred To Contact Diagnoses Left elbow pain Procedures XR Elbow Left 3+ View Cherie Das MD Phone: tel: fax: Referral ID Status Reason Start Date Expiration Date Visits Re quested Visits Authorized [id number] Closed 12/24/2019 07/04/2021 1 1 Reason for Visit * Reason Comments Pain Encounter Details Date Type Department Care Team (Latest Contact Info) Description 12/24/2019 1:00 PM CDT Office Visit [facility] Orthopedics and Sports Medicine [address] [place] [phone] Cherie Das MD [address] [place] [address] Lateral epicondylitis of left elbow (Primary Dx); [...] on file 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 Gender Identity Not on file Sexual Orientation Not on file documented as of this encounter Last Filed Vital Signs Vital Sign Reading Time Taken Comments Blood Pressure 105/70 12/24/2019 1:06 PM CDT Pulse 66 12/24/2019 1:06 PM CDT Temperature 37 ??C (98.6 ??F) 12/24/2019 1:06 PM CDT Respiratory Rate - - Oxygen Saturation - - Inhaled Oxygen Concentration - - Weight 54 kg (119 lb) 12/24/2019 1:06 PM CDT Height 158.8 cm (5' 2.5 ) 12/24/2019 1:06 PM CDT Body Mass Index 21.42 12/24/2019 1:06 PM CDT documented in this encounter Progress Notes * Cherie Das MD - 12/24/2019 1:00 PM CDT NEW PATIENT VISIT Subjective CHIEF COMPLAINT She had concerns including Pain of the Left Elbow. HISTORY OF PRESENT ILLNESS Mrs. Yost is a well-appearing 44-year-old woman with a pleasant affect in no acute distress who presents today with complaints of left arm elbow pain for about a year, the pain has gotten worse over the last 2 months. 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 The pain is sharp, dull, moderate, continuous, positive night pain. Holding things and lifting makes the pain worse, not using it as much makes the pain better. She has been taking ibuprofenand doing a home exercise program. She has history of carpal tunnel release, she is right-hand dominant. Denies numbness and tingling. She does state that she hit her elbow on a soft couch which also exacerbated her pain. Pain Assessment Pain Assessment: 0-10 Pain Score: 5 - Moderate pain Pain Location: Elbow Pain Orientation: Left Pain Interventions: Medication (See MAR) PAST MEDCIAL HISTORY She has a past medical history of Arthritis. She also has no past medical history of Atypical ductal hyperplasia of breast, BRCA1 negative, BRCA1 positive, BRCA2 negative, BRCA2 positive, Breast cancer (CMS/HCC), Breast cyst, Breast injury, Colon cancer (CMS/HCC), Ductal hyperplasia of breast, Endometrial cancer (CMS/HCC), Fibrocystic breast, History of chemotherapy, History of radiation therapy,Lobular carcinoma in situ of breast, Malignant hyperthermia, Ovarian cancer (CMS/HCC), PONV (postoperative nausea and vomiting), Sleep apnea, Smoking, or Thyroid cancer (CMS/HCC). PAST SURGICAL HISTORY She has a past surgical history that includes Hemorrhoid surgery; Other surgical history (2017); and Cholecystectomy (2017). MEDICATIONS She has a current medication list which includes the following prescription(s): ascorbic acid, ibuprofen, and [id number]. ALLERGIES She has No Known Allergies. SOCIAL HISTORY She reports that she has never smoked. She has never used smokeless tobacco. She reports current alcohol use. She reports that she does not use drugs. FAMILY HISTORY Her family history includes Cancer in an other family member; Multiple sclerosis in her mother; Prostate cancer (age of onset: 68) in her father. REVIEW OF SYSTEMS Review of Systems Constitutional: Negative. Negative for activity change, appetite change, chills and fever. HENT: Negative. Negative for congestion, dental problem, ear pain, hearing loss and voice change. Eyes: Negative. Negative for pain and visual disturbance. Respiratory: Negative. Negative for apnea, cough, chest tightness and shortness of breath. Cardiovascular: Negative. Negative for chest pain, palpitations and leg swelling. Gastrointestinal: Negative. Negative for blood in stool, constipation, diarrhea, nausea and vomiting. Endocrine: Negative for cold intolerance and heat intolerance. Genitourinary: Negative. Negative for difficulty urinating and hematuria. Musculoskeletal: Negative. Skin: Negative. Negative for color change, rash and wound. Allergic/Immunologic: Negative for environmental allergies. Neurological: Negative. Negative for dizziness, syncope, numbness and headaches. Hematological: Negative for adenopathy. Does not bruise/bleed easily. Psychiatric/Behavioral: Negative. Negative for confusion. The patient is not nervous/anxious and isnot hyperactive. All other systems reviewed and are negative. Objective PHYSICAL EXAM BP 105/70 Pulse 66 Temp 37 ??C (98.6 ??F) Ht 158.8 cm (5' 2.5 ) Wt 54 kg (119 lb) BMI 21.42 kg/m?? Right elbow The patient has normal inspection, palpation, range of motion, strength, and stability of the rightelbow. Left elbow Inspection Erythema: absent Olecranon bursa swelling: absent Swelling: absent Temperature: normal Abrasion: absent Surgical scar/wound: absent. Palpation Tenderness: present. The tenderness is location in the lateral epicondyle area(s). Range of motion The patient has normal range of motion of the left elbow. The patient has pain with range of motion. Stability The patient has normal stability of the left elbow. Strength Elbow extension: 4/5 Elbow flexion: 4/5 Forearm pronation: 4/5 Forearm supination: 4/5 Neurovascular The patient has normal vascular on the left side of their body. The patient has normal sensation on the left side of their body. Right hand/wrist The patient has normal inspection, palpation, range of motion, strength, and stability of the righthand and wrist. Left hand/wrist Inspection The patient has normal inspection of the left hand and wrist. Palpation Tenderness: present. The tenderness is located in the radial area. Range of motion Index: MP: The patient [...] Wrist flexion: 4/5 Interossei: 4/5 APB: 4/5 Boring Machine Operator Vertical: 4/5 DIP flexion: not tested Neurovascular The patient has normal vascular on the left side of their body. The patient has normal sensation. REVIEW OF X-RAYS/STUDIES/LABS XR Elbow Left 3+ View Interpretation of left elbow xrays 3 views: Upon my review of the images, negative for fracture dislocation. No periosteal reaction or bone destruction. Mild effusion. Joint space well maintained. Assessment/Plan Luciana was seen today for pain. Diagnoses and all orders for this visit: Lateral epicondylitis of left elbow - XR Elbow Left 3+ View De Quervain's disease (radial styloid tenosynovitis) Procedures PLAN Reviewed x-ray images with alexandrea Lee elbow for 20 minutes every 2-3 hours for the next 24-48hours. ADLs only for the next 24-48 hours. Take [id number] medication as needed for pain. Referred to the [facility] in [place] for further evaluation and treatment. Return to clinic in 4 weeks for repeat evaluation, sooner if symptoms get worse. Discussed steroid injection, the risks and benefits if she continues to have pain, recommend injection. She is in full understanding and in agreement with the plan, and all of her questions were answered. Environmental Sampling Technician completed by using M*Modal Fluency Direct speaking software, therefore, transcriptionvariances may occur. BEST Mora MD documented in this encounter Miscellaneous Notes * Addendum Note - Zohaib Farley ATC - 12/24/2019 1:00 PM CDTAddended by: ZOHAIB FARLEY on: 12/24/2019 03:24 PM Modules accepted: Orders documented in this encounter Plan of Treatment Scheduled Referrals Name Type Priority Associated Diagnoses Orde r Schedule Ambulatory referral order to Physical Therapy - Outpatient Referral Routine Lateral epicondylitis of left elbow De Quervain's disease (radial styloid tenosynovitis) Expected: 01/07/2020 (Approximate), Expires: 12/23/2020 documented as of this encounter Procedures Procedure Name Priority Date/Time Associated Diagnosis Comments XR ELBOW LEFT 3 OR MORE VIEWS Schedule Routine, Read Routine (OP Routine) 12/24/2019 2:00 PM CDT Lateral epicondylitis of left elbow documented in this encounter Results * XR Elbow Left 3+ View (12/24/2019 2:00 PM CDT) Anatomical Region Laterality Modality Upper Extremities, Elbow Left Radiogr aphic Imaging Narrative 12/24/2019 2:00 PM CDT Interpretation of left elbow xrays 3 views: Upon my review of the images, negative for fracture dislocation. ??No periosteal reaction or bone destruction. ??Mild effusion. ??Joint space well maintained. us Cherie Das MD IMG XR PROCEDURES Sarah l Result documented in this encounter Visit Diagnoses Diagnosis Lateral epicondylitis of left elbow- Primary De Quervain's disease (radial styloid tenosynovitis) documented in this encounter Historical Medications * This list may reflect changes made after this encounter. ibuprofen (ibuprofen) 200 mg tab/cap Take by mouth every 6 (six) hours as needed for pain added in this encounter Care Teams Family Medicine Physician Assistant Relationship Specialty Start Date End Date Siva Burgos MD [address] [place] [address] PCP - General 05/15/16 Cori Arreola MD [address] [address] Referring Physician Gynecology 04/10/18 documented as of this encounter
--- OUTSIDE RECORDS SUMMARY | 2024-06-23 18:25 | XMS_ITS | Encounter Summary ---
Author Organization [facility] Address [address] [place] [address] Care Team Providers Care Concrete Polisher Name Role Phone Unavailable Primary Care Provider Unavailabl e Encounter Details Date Type Department Care Team (Late st Contact Info) Description 05/14/2016 11:22 AM DRIER UNLOADER - 05/14/2016 3:40 PM DRIER UNLOADER Hospital Encounter [facility] Kevin Beckwith MD [address] [facility] [facility] [place] [id number] Calculus of gallbladder without cholecystitis without obstruction Social History Tobacco Use Types Packs/Day Years Used Date Smoking Tobacco: Never Assessed Comments Unknown Sex and Gender Information Value Date Recorded Sex Assigned at Not on file 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 Gender Identity Not on file Sexual Orientation [...] day with food 0 0 05/14/2016 04/18/2018 ondansetron (ZOFRAN, HYDROCHLORIDE,) 4 mg tablet take 1 tablet by oral route every 6 hours prn 0 0 05/14/2016 04/18/2018 documented as of this encounter Plan of Treatment Not on file documented as of this encounter Procedures Procedure Name Priority Date/Time Associated Diagnosis Comments CT ABDOMEN PELVIS W CONTRAST Routine 05/14/2016 1:57 PM DRIER UNLOADER URINE CHORIONIC GONADOTROPIN (HCG) Routine 05/14/2016 12:36 PM DRIER UNLOADER URINALYSIS Routine 05/14/2016 12:36 PM DRIER UNLOADER SERUM LIPASE Routine 05/14/2016 11:39 AM DRIER UNLOADER SERUM ESTIMATED GLOMERULAR FILTRATION RATE Routine 05/14/2016 11:39 AM DRIER UNLOADER SERUM AMYLASE Routine 05/14/2016 11:39 AM DRIER UNLOADER PLASMA COMPREHENSIVE METABOLIC PANEL Routine 05/14/2016 11:39 AM DRIER UNLOADER BLOOD CELL COUNT (CBC) Routine 6 11:39 AM DRIER UNLOADER BLOOD CELL MORPHOLOGIC EXAM Routine 05/14/2016 11:39 AM DRIER UNLOADER ELECTROCARDIOGRAPHY (ECG) 05/14/2016 DISCHARGE LABORATORY CUMULATIVE REPORT 05/14/2016 documented in this encounter Results * CT Abdomen Pelvis W Contrast (05/14/2016 1:57 PM DRIER UNLOADER) Anatomical Region Laterality Modality Body N/A Computed Tomogra phy 05/14/2016 1:57 PM DRIER UNLOADER Narrative 05/17/2016 3:12 PM [address]ER UN[address] Mr CT Abd/Pel W ?[id number] ??Acc#: ??[id number] DATE OF EXAM: ??May 14 2016 CLINICAL HISTORY: Right upper quadrant abdominal pain, vomiting. RESULT: Protocol: Helically acquired axial images were obtained from the dome of the diaphragm to the pubic symphysis following the administration of IV contrast only. Findings: The liver, spleen, pancreas, adrenals and kidneys are normal. The gallbladder is distended with suggestion of mild mural thickening. Dependent gallstones are present within the gallbladder lumen. ??There is no evidence of biliary ductal dilatation. The small and large bowel are nondilated. ??There is no evidence of ascites or adenopathy. ??A large adnexal cyst is present measuring 4.6 x 3.3cm. ??The pelvic contents are otherwise normal. ??The lung bases are clear. IMPRESSION: 1. CHOLELITHIASIS WITH DISTENDED GALLBLADDER AND WALL THICKENING. CORRELATE CLINICALLY FOR POSSIBLE ACUTE CHOLECYSTITIS. 2. LARGE RIGHT ADNEXAL CYST. 3. OTHERWISE NORMAL CT OF THE ABDOMEN AND PELVIS. RESULTS WERE CALLED TO [facility] AT 1408 HOURS. Interpreting Physician: ??DR YASMIN CERVANTES M.D. ??Read on: ??May 15 2016 9:57A Transcribed by: ??mrr ??On: May 15 2016 ??9:57A Approved Electronically by: ??BILLY Drake, DR HOFFMAN ??on: ??May 17 2016 3:11P Attending: ??KEVIN SANDOVAL Requesting: ??CARMEN VALERIO Requesting Fax: ??-- Attending Fax: ??-- Attending ID: ??[id number] Requesting ID: ??[id number] Report To 1 ID: ??[id number] Report To 1 Name: ??KEVIN SANDOVAL Report To 1 FAX: ??-- NextGen Order #: Procedure Note Provider, MD Jocelyne - 10/24/[address] Abd/Pel W [id number] Acc#: [id number] DATE OF EXAM: May 14 2016 CLINICAL HISTORY: Right upper quadrant abdominal pain, vomiting. RESULT: Protocol: Helically acquired axial images were obtained from the dome ofthe diaphragm to the pubic symphysis following the administration of IVcontrast only. Findings: The liver, spleen, pancreas, adrenals and kidneys are normal.The gallbladder is distended with suggestion of mild mural thickening.Dependent gallstones are present within the gallbladder lumen. There isno evidence of biliary ductal dilatation. The small and large bowel arenondilated. There is no evidence of ascites or adenopathy. A largeadnexal cyst is present measuring 4.6 x 3.3cm. The pelvic contents are otherwise normal. The lung bases areclear. IMPRESSION: 1. CHOLELITHIASIS WITH DISTENDED GALLBLADDER AND WALL THICKENING.CORRELATE CLINICALLY FOR POSSIBLE ACUTE CHOLECYSTITIS. 2. LARGE RIGHT ADNEXAL CYST. 3. OTHERWISE NORMAL CT OF THE ABDOMEN AND PELVIS. RESULTS WERE CALLED [facility] AT 1408 HOURS. Interpreting Physician: DR YASMIN CERVANTES M.D. Read on: May 15 [id number] Transcribed by: giorgio On: May 15 2016 9:57A Approved Electronically by: BILLY Drake, DR HOFFMAN on: May 17 20163:11P Attending: KEVIN SANDOVAL Requesting: CARMEN VALERIO Requesting Fax: -- Attending Fax: -- Attending ID: [id number] Requesting ID: [id number] Report To 1 ID: [id number] Report To 1 Name: KEVIN SANDOVAL Report To 1 FAX: -- NextGen Order #: us Historical Provider MD TRINH CT PROCEDURES Final R esult * Urine chorionic gonadotropin (HCG) (05/14/2016 12:36 PM DRIER UNLOADER) HCG, ur Negative Negative CDR HISTOR ICAL RESULTS Urine 05/14/2016 12:3 6 PM DRIER UNLOADER Carmen Valerio IVF EMBRYOLOGIST LAB BLOOD ORDERABLES Fi nal Result CDR HISTORICAL RESULTS * (ABNORMAL) Urinalysis (05/14/2016 12:36 PM DRIER UNLOADER) Color, ur Yellow Yellow CDR HISTOR ICAL RESULTS Clarity, ur Clear Clear CDR HIST ORICAL RESULTS Specific gravity, ur 1.019 1.003 - 1.030 CDR HISTORICAL RESULTS Comment:Normal Ranges: 1.003 -1.030 pH, ur 8.0 4.5 - 8.0 CDR HISTOR ICAL RESULTS Comment:Normal ranges: 4.5-8 .0 Protein, ur, quant 30 Negative mg/dl CDR HISTORICAL RESULTS Glucose, ur, quant Negative Negative mg/dl CDR HISTORICAL RESULTS Ketones, ur 15(A) Negative CDR HIST ORICAL RESULTS Bilirubin, ur Negative Negative CDR HI STORICAL RESULTS U Blood Negative Negative CDR HISTOR ICAL RESULTS Urobilinogen, quant, ur 1.0 0.2 - 1.0 Sharla Units/dl CDR HISTORICAL RESULTS Comment:Normal Ranges: 0.2-1 .0 EU/dL Nitrites, ur Negative Negative CDR HIS TORICAL RESULTS Leukocyte esterase, ur Negative Negative CDR HISTORICAL RESULTS Urine 05/14/2016 12:3 6 PM DRIER UNLOADER Historical Provider LAB BLOOD ORDERABLES Sarah rosibel Result CDR HISTORICAL RESULTS * (ABNORMAL) Plasma comprehensive metabolic panel (05/14/2016 11:39 AM DRIER UNLOADER) Sodium 139 135 - 145 mmol/L CDR HISTORICAL RESULTS K, pl 4.1 3.5 - 5.1 mmol/L CDR HISTORICAL RESULTS Chloride 101 97 - 110 mmol/L CDR HISTORICAL RESULTS CO2 24 22 - 32 mmol/L CDR HISTORICAL RESULTS A. gap 18(H) 8 - 16 mmol/L CDR HISTORICAL RESULTS Glucose 135 70 - 199 mg/dl CDR HISTORICAL RESULTS Comment: Interpretive Data Note:The glucose is assumed non fasting Fastin-99 mg/dL Random: ??70-199 mg/dL Either a fasting glucose > 126 mg/dL or a random glucose > 200 mg/dL plus symptoms is diagnostic of diabetes when confirmed on another day. Fasting values > 100 mg/dL but < 125 mg/dL are diagnostic of impaired fasting glucose. Current interpretive data was last revised on 2014. BUN 13.0 8.0 - 25.0 mg/dl CDR HISTORICAL RESULTS Creatinine 0.67 0.60 - 1.10 mg/dl CDR HISTORICAL RESULTS BUN/creat ratio 19 10 - 20 CDR HISTORICAL RESULTS Calcium 9.3 8.6 - 10.2 mg/dl CDR HISTORICAL RESULTS Protein, sr 6.7 6.0 - 8.4 g/dl CDR HISTORICAL RESULTS Alb 4.0 3.6 - 5.0 g/dl CDR HISTORICAL RESULTS Alk phos 66 40 - 130 Units/L CDR HISTORICAL RESULTS ALT 28 5 - 45 Units/L CDR HISTORICAL RESULTS AST 49(H) 10 - 40 Units/L CDR HISTORICAL RESULTS Bilirubin 0.9 <=1.2 mg/dl CDR HISTORICAL RESULTS Plasma 05/14/2016 11:3 9 AM DRIER UNLOADER us Historical Provider LAB BLOOD ORDERABLES Sarah gleason Result CDR HISTORICAL RESULTS * Serum lipase (05/14/2016 11:39 AM DRIER UNLOADER) Lip 47 10 - 70 Units/L CDR HISTORICAL RESULTS Serum 05/14/2016 11:3 9 AM DRIER UNLOADER Result [facility] Historical Provider LAB BLOOD ORDERABLES Sarah l Result CDR HISTORICAL RESULTS * Blood cell count (CBC) (05/14/2016 11:39 AM DRIER UNLOADER) WBC 9.5 3.8 - 9.8 K/cumm CDR HISTORICAL RESULTS RBC 4.47 3.90 - 5.00 M/cumm CDR HISTORICAL RESULTS Hgb 14.4 12.1 - 15.1 g/dl CDR HISTORICAL RESULTS Hct 40.3 36.1 - 44.3 % CDR HISTORICAL RESULTS MCV 90.2 80.0 - 100.0 fl CDR HISTORICAL RESULTS MCH 32.2 26.7 - 33.7 pg CDR HISTORICAL RESULTS MCHC 35.7 32.7 - 36.0 g/dl CDR HISTORICAL RESULTS Rdw 11.9 11.5 - 14.6 % CDR HISTORICAL RESULTS Platelets 249 140 - 440 K/cumm CDR HISTORICAL RESULTS MPV 9.2 8.0 - 12.0 fl CDR HISTORICAL RESULTS NRBC 0.0 0.0 - 0.0 % CDR HIST ORICAL RESULTS NRBC, abs 0.00 0.00 - 0.00 K/cumm CDR HISTORICAL RESULTS Blood specimen (specimen) 05/14/2016 11:39 AM DRIER UNLOADER Historical Provider LAB BLOOD ORDERABLES Sarah l Result Performing Organization Address [facility]/State/ZIP Co de Phone Number CDR HISTORICAL RESULTS * Serum amylase (05/14/2016 11:39 AM DRIER UNLOADER) Cira, pl 86 30 - 100 Units/L CDR HISTORICAL RESULTS Serum 05/14/2016 11:3 9 AM DRIER UNLOADER Result [facility] Historical Provider LAB BLOOD ORDERABLES Sarah l Result CDR HISTORICAL RESULTS * (ABNORMAL) Blood cell morphologic exam (05/14/2016 11:39 AM DRIER UNLOADER) Neutrophils 85.6(H) 44.0 - 80.0 % CDR HISTORICAL RESULTS Immature granulocytes 0.2 0.0 - 1.0 % CDR HISTORICAL RESULTS Lymphocytes 9.6(L) 13.0 - 44.0 % CDR HISTORICAL RESULTS Monos 3.8 2.0 - 11.0 % CDR HISTORICAL RESULTS Eosinophils 0.2 0.0 - 6.0 % CDR HISTORICAL RESULTS Basophils 0.6 0.0 - 3.0 % CDR HISTORICAL RESULTS Neutrophils, abs 8.1(H) 1.6 - 7.0 K/cumm CDR HISTORICAL RESULTS Immature granulocyte, abs 0.0 0.0 - 0.2 K/cumm CDR HISTORICAL RESULTS Lymphocytes, abs 0.9 0.5 - 4.3 K/cumm CDR HISTORICAL RESULTS Monocytes, absolute 0.4 0.1 - 1.0 K/cumm CDR HISTORICAL RESULTS Eosinophils, abs 0.0 0.0 - 0.6 K/cumm CDR HISTORICAL RESULTS Basophils, abs 0.1 0.0 - 0.3 K/cumm CDR HISTORICAL RESULTS Blood specimen (specimen) 05/14/2016 11:39 AM DRIER UNLOADER us Historical Provider LAB BLOOD ORDERABLES Sarah gleason Result CDR HISTORICAL RESULTS * Serum estimated glomerular filtration rate (05/14/2016 11:39 AM DRIER UNLOADER) Pathologist [facility] eGFR >60 ml/min/1.7 3 m2 CDR HISTORICAL RESULTS Comment: Interpretation of Estimated GFR (eGFR): Normal ?>/= 60 mL/min/1.73m2 Possible Chronic Kidney Disease ??15 - 59 mL/min/1.73m2 Possible Kidney Failure ?< 15 ??mL/min/1.73m2 If -Polish multiply value by 1.16. ??Estimated glomerular filtration rate is determined by the CKD-EPI equation recommended by the National Kidney Foundation (KDIGO 2012 Clinical Practice Guideline for the Evaluation and Management of Chronic Kidney Disease. ??Kidney Intnl Suppl Jun 2012;3:1). ??The CKD-EPI equation should not be used in acute renal failure or acute kidney injury and is not valid in children. Serum 05/14/2016 11:3 9 AM DRIER UNLOADER Historical Provider LAB BLOOD ORDERABLES Sarah l Result CDR HISTORICAL RESULTS * DISCHARGE LABORATORY CUMULATIVE REPORT (05/14/2016) Narrative 05/14/2016 Ordered by an unspecified provider. Historical Provider LAB BLOOD ORDERABLES Sarah l Result * ELECTROCARDIOGRAPHY (ECG) (05/14/2016) Narrative 05/14/2016 Ordered by an unspecified provider. Historical Provider ECG ORDERABLES Final Res ult documented in this encounter Visit Diagnoses Diagnosis Calculus of gallbladder without cholecystitis without obstruction documented in this encounter
--- OUTSIDE RECORDS SUMMARY | 2024-06-23 18:25 | XMS_ITS | Encounter Summary ---
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 Pain: 2/10 Objective:See treatment provided. Treatment Provided: HP to left elbow and wrist prior to treatment. US to left elbow STM and IASTM to left elbow and forearm and lateral wrist. HEP for stretching of left wrist and elbow. Ended treatment with ice and e-stim Assessment: Tolerated treatment well. Plan: Plan to cont per POC. Start Time: 1008 End Time:1100 Yoshi Brock PT documented in this encounter Plan of Treatment Not on file documented as of this encounter Visit Diagnoses Diagnosis Lateral epicondylitis of left elbow- Primary De Quervain's disease (radial styloid tenosynovitis) documented in this encounter Care Teams Rn Home Health Relationship Specialty Start Date End Date Siva Burgos MD [address] [place] [address] PCP - General 05/15/16 Cori Arreola MD [address] [address] Referring Physician Gynecology 04/10/18 documented as of this encounter
--- OUTSIDE RECORDS SUMMARY | 2024-06-23 18:25 | XMS_ITS | Encounter Summary ---
Author Organization [facility] Healthcare Address [address] [place] [address] Care Team Providers Care Machine Sole Leveler Name Role Phone Unavailable Primary Care Provider Unavailabl e Encounter Details Date Type Department Care Team (Late st Contact Info) Description 05/27/2013 9:18 AM FIRST SAMPLER - 05/27/2013 11:59 PM FIRST SAMPLER Hospital Encounter [facility] Cori Almaraz MD [address] [address] Other screening mammogram; Inconclusive mammogram Social History Tobacco Use Types Packs/Day Years Used Date Smoking Tobacco: Never Assessed Comments Unknown Sex and Gender Information Value Date Recorded Sex Assigned at Not on file Legal Sex Female 9:53 AM FIRST SAMPLER Gender Identity Not on file Sexual Orientation Not on file documented as of this encounter Plan of Treatment Not on file documented as of this encounter Procedures Procedure Name Priority Date/Time Associated Diagnosis Comments DIGITAL MAMMOGRAPHY Routine 05/27/2013 9 :47 AM FIRST SAMPLER documented in this encounter Results * DIGITAL MAMMOGRAPHY (05/27/2013 9:47 AM FIRST SAMPLER) Anatomical Region Laterality Modality Breast Mammography 05/27/2013 9:47 AM FIRST SAMPLER Narrative 05/27/2013 12:23 PM FIRST SAMPLER CC: ??DR JULIEN DOYLE Screening Mamm Bi ??Acc#: ??[id number] DATE OF EXAM: ??May 27 2013 CLINICAL HISTORY: Screen. Performed by: bm RESULT: Two views of each breast with no prior study demonstrates a very dense fibroglandular pattern bilaterally that diminishes the sensitivity of the mammogram for lesion detection. ??There are several but benign appearing breast calcifications scattered throughout all quadrants of the breasts. No suspicious mass or suspicious appearing calcifications are definitively seen to suggest mammographic evidence of malignancy. Digital technology was employed plus computer-aided detection software (R2) was utilized in interpretation of these images. ??This facility utilizes a reminder system to notify patient's of yearly mammograms. IMPRESSION: 1. ??DENSE FIBROGLANDULAR PATTERN LIMITING MAMMOGRAM SENSITIVITY FOR LESION DETECTION BUT BEST CAN BE DETERMINED THERE IS NO DEFINITIVE MAMMOGRAPHIC EVIDENCE OF MALIGNANCY. 2. ??ANNUAL FOLLOWUP IS RECOMMENDED. BI-RADS CATEGORY 2 - BENIGN FINDINGS Interpreting Physician: ??ELLIE STONER M.D. ??Read on: ??May 27 2013 ??9:50A Transcribed by: ??martina ??On: May 27 2013 11:14A Approved Electronically by: ??ELLIE STONER M.D. ??on: ??May 27 2013 12:23P Ordering DR: [facility] Attending DR: CORI MCLAUGHLIN Procedure Note Provider, MD Jocelyne - 10/06/2016 CC: DR JULIEN DOYLE Screening Mamm Bi Acc#: [id number] DATE OF EXAM: May 27 2013 CLINICAL HISTORY: Screen. Performed by: rafael RESULT: Two views of each breast with no prior study demonstrates a very densefibroglandular pattern bilaterally that diminishes the sensitivity of themammogram for lesion detection. There are several but benign appearingbreast calcifications scattered throughout all quadrants of the breasts.No suspicious mass or suspicious appearing calcifications are definitivelyseen to suggest mammographic evidence of malignancy. Digital technologywas employed plus computer-aided detection software (R2) was utilized ininterpretation of these images. This facility utilizes a reminder systemto notify patient's of yearly mammograms. IMPRESSION: 1. DENSE FIBROGLANDULAR PATTERN LIMITING MAMMOGRAM SENSITIVITY FOR LESIONDETECTION BUT BEST CAN BE DETERMINED THERE IS NO DEFINITIVEMAMMOGRAPHIC EVIDENCE OF MALIGNANCY. 2. ANNUAL FOLLOWUP IS RECOMMENDED. BI-RADS CATEGORY 2 - BENIGN FINDINGS Interpreting Physician: ELLIE STONER M.D. Read on: May 27 2013 9:50A Transcribed by: martina On: May 27 2013 11:14A Approved Electronically by: ELLIE STONER M.D. on: May 27 2013 12:23P Ordering DR: KAIS[facility] WASHINGTON Attending DR: CORI MCLAUGHLIN Historical Provider MD TRINH MAMMO PROCEDURES Sarah l Result documented in this encounter Visit Diagnoses Diagnosis Other screening mammogram Inconclusive mammogram documented in this encounter
--- OUTSIDE RECORDS SUMMARY | 2024-06-23 18:25 | XMS_ITS | Encounter Summary ---
Author Organization [facility] Healthcare Address [address] [place] [address] Care Team Providers Care Manager Labor Delivery Name Role Phone Unavailable Primary Care Provider Unavailabl e Encounter Details Date Type Department Care Team (Late st Contact Info) Description 08/17/2015 8:33 AM CHIEF TECHNICIAN - 08/17/2015 11:59 PM CHIEF TECHNICIAN Hospital Encounter [facility] Cori Almaraz MD [address] [address] Encounter for screening mammogram for malignant neoplasm of breast Social History Tobacco Use Types Packs/Day Years Used Date Smoking Tobacco: Never Assessed Comments Unknown Sex and Gender Information Value Date Recorded Sex Assigned at Not on file Legal Sex Female 9:53 AM CHIEF TECHNICIAN Gender Identity Not on file Sexual Orientation Not on file documented as of this encounter Plan of Treatment Not on file documented as of this encounter Procedures Procedure Name Priority Date/Time Associated Diagnosis Comments DIAGNOSTIC MAMMOGRAM BILATERAL W SAUNDRA Routine 08/17/2015 9:13 AM CHIEF TECHNICIAN documented in this encounter Results * DIAGNOSTIC MAMMOGRAM BILATERAL W SAUNDRA (08/17/2015 9:13 AM CHIEF TECHNICIAN) Anatomical Region Laterality Modality Breast Bilateral Mammography 08/17/2015 9:13 AM CHIEF TECHNICIAN Narrative 08/17/2015 12:07 PM CHIEF TECHNICIAN Td Mammogram performed by: BM SCREENING MAMM W SAUNDRA BI ??Acc#: ??[id number] Screening Mamm Bi ??Acc#: ??[id number] DATE OF EXAM: ??Mar ??2015 CLINICAL HISTORY: Screen. RESULT: Three views of each breast with bilateral breast tomosynthesis obtained and correlated to the study dated 05/27/13. The breast density is extremely dense limiting mammogram sensitivity for lesion detection. There are innumerable microcalcifications scattered throughout all quadrants of both breasts. Since the prior study, the overall amount of calcification has increased. No definitive suspicious mass or clearly defined suspicious cluster of calcification is seen, but given the background fibroglandular density and the innumerable scattered calcifications, sensitivity for mammographic detection of malignancy is decreased on this exam. Digital technology was employed plus computer-aided detection software (R2) was utilized in interpretation of these images. ??This facility utilizes a reminder system to notify patients of yearly mammograms. IMPRESSION: 1. ??NO DEFINITIVE MAMMOGRAPHIC EVIDENCE OF MALIGNANCY WITH LIMITATIONS DISCUSSED ABOVE. 2. ??ANNUAL FOLLOWUP RECOMMENDED. BI-RADS CATEGORY 2 - BENIGN Interpreting Physician: ??ELLIE STONER M.D. ??Read on: ??Aug ??2015 ??9:18A Transcribed by: ??TXD ??On: Aug ??2015 10:47A Approved Electronically by: ??ELLIE STONER M.D. ??on: ??Aug ??1 2015 12:07P Attending: ??DR CORI MCLAUGHLIN Requesting: ??NANCY SAHNI [facility] Requesting Fax: ??-- Attending Fax: ??[phone] Attending ID: ??[id number] Requesting ID: ??[id number] Report To 1 ID: ??[id number] Report To 1 Name: ??DR CORI MCLAUGHLIN Report To 1 FAX: ??[phone] NextGen Order #: Procedure Note Provider, MD Jocelyne - 10/06/2016 Td Mammogram performed by: BM SCREENING MAMM W SAUNDRA BI Acc#: [id number] Screening Mamm Bi Acc#: [id number] DATE OF EXAM: Aug 17 2015 CLINICAL HISTORY: Screen. RESULT: Three views of each breast with bilateral breast tomosynthesis obtainedand correlated to the study dated 05/27/13. The breast density isextremely dense limiting mammogram sensitivity for lesion detection. Thereare innumerable microcalcifications scattered throughout all quadrants ofboth breasts. Since the prior study, the overall amount of calcificationhas increased. No definitive suspicious mass or clearly defined suspiciouscluster of calcification is seen, but given the background fibroglandulardensity and the innumerable scattered calcifications, sensitivity formammographic detection of malignancy is decreased on this exam. Digitaltechnology was employed plus computer-aided detection software (R2) wasutilized in interpretation of these images. This facility utilizes [employer] system to notify patients of yearly mammograms. IMPRESSION: 1. NO DEFINITIVE MAMMOGRAPHIC EVIDENCE OF MALIGNANCY WITH LIMITATIONS ASDISCUSSED ABOVE. 2. ANNUAL FOLLOWUP RECOMMENDED. BI-RADS CATEGORY 2 - BENIGN Interpreting Physician: ELLIE STONER M.D. Read on: Aug 17 2015 9:18A Transcribed by: DEIRDRE On: Aug 17 2015 10:47A Approved Electronically by: ELLIE STONER M.D. on: Aug 17 2015 12:07P Attending: DR CORI MCLAUGHLIN Requesting: NANCY SAHNI [facility] Requesting Fax: -- Attending Attending ID: [id number] Requesting ID: [id number] Report To 1 ID: [id number] Report To 1 Name: DR CORI MCLAUGHLIN Report To 1 FAX: [phone] NextGen Order #: us Historical Provider MD TRINH MAMMO PROCEDURES Sarah l Result documented in this encounter Visit Diagnoses Diagnosis Encounter for screening mammogram for malignant neoplasm of breast documented in this encounter
--- OUTSIDE RECORDS SUMMARY | 2024-06-23 18:25 | XMS_ITS | Encounter Summary ---
Author Organization formerly [facility] Address [address] [place] [address] Care Team Providers Care Mixing Engineer Name Role Phone Siva Burgos MD Primary Care Provider [phone] Cori Arreola MD Unavailable [phone] Reason for Visit * Reason Comments PT Treatment Encounter Details Date Type Department Care Team (Late st Contact Info) Description 01/23/2020 12:00 PM CDT Therapy [facility] Physical Therapy - [place] [address] Yoshi Brock, PT Lateral epicondylitis of left [...] on file Legal Sex Female 9:53 AM ELECTRIC METER TECHNICIAN Gender Identity Not on file Sexual Orientation Not on file documented as of this encounter Progress Notes * Yoshi Brock, PT - 01/23/2020 12:00 PM CDT PT Daily Treatment Note Luciana Yost [...] Arm bike x 4 min (2 fwd/2bwd) Ended treatment with ice and e-stim Assessment: Tolerated treatment well. Plan: Plan to cont per POC. Start Time: 1200 End Time:1245 Yoshi Brock PT documented in this encounter Plan of Treatment Not on file documented as of this encounter Visit Diagnoses Diagnosis Lateral epicondylitis of left elbow- Primary De Quervain's disease (radial styloid tenosynovitis) documented in this encounter Care Teams Mixing Engineer Relationship Specialty Start Date End Date Siva Burgos MD [address] [place] [address] PCP - General 05/15/16 Cori Arreola MD [address] [address] Referring Physician Gynecology 04/10/18 documented as of this encounter
--- OUTSIDE RECORDS SUMMARY | 2024-06-23 18:25 | XMS_ITS | Encounter Summary ---
Author Organization [facility] Healthcare Address [address] [place] [address] Care Team Providers Care Wire Repairer Name Role Phone Siva Burgos MD Primary Care Provider [phone] Reason for Referral * Neurology (Routine) - Closed Specialty Diagnoses / Procedures Referred By Contac t Referred To Contact Diagnoses Carpal tunnel syndrome of left wrist Left hand pain Procedures EMG/NCV -Procedure performed at: [facility]; # Limbs? 1; [facility]ical [facility]: LUE; [facility] Phone: tel: fax: [address] [address] Referral ID Status Reason Start Date Expiration Date Visits Re quested Visits Authorized [id number] Closed 02/27/2018 09/08/2019 1 1 Reason for Visit * Neurology (Routine) - Closed Specialty Diagnoses / Procedures Referred By Contac t Referred To Contact Diagnoses Carpal tunnel syndrome of left wrist Left hand pain Procedures EMG/NCV -Procedure performed at: [facility]; # Limbs? 1; Anatomical location: [facility] Keo Kaur PA Phone: tel: fax: [address] [address] Referral ID Status Reason Start Date Expiration Date Visits Re quested Visits Authorized [id number] Closed 02/27/2018 09/08/2019 1 1 Encounter Details Date Type Department Care Team (Latest Contact Info) Description 03/20/2018 1:47 PM CDT - 03/20/2018 11:59 PM CDT Hospital Encounter [facility] Neurological Disorders Testing [address] [place] [address] Keo Kaur PA [address] [facility] [address] [place] [address] Martin Valdez MD [address] [facility] [address] [facility] [address] [place] [address] Carpal tunnel syndrome of left wrist; Left hand pain Discharge Disposition: Discharge to home or self care Social History Tobacco Use Types Packs/Day Years Used Date Smoking Tobacco: Never Smokeless Tobacco: Never Alcohol Use Standard Drinks/Week Comments Yes 0 (1 standard drink = 0.6 oz pur e alcohol) Comments Unknown Sex and Gender Information Value Date Recorded Sex Assigned at Not on file Legal Sex Female 9:53 AM QUALITY CONTROL LAB 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 The study wasordered for evaluation of peripheral neuropathy. Nerve Conduction Study Left median orthodromic sensory nerve conduction study [...] nerve conduction velocity and normal F-wave latency. EMG Study The concentric needle electrode examination was performed on left FDI, APB, flexor carpi radialis, biceps, and deltoid. There was no evidence of acute or chronic innervation or reinnervation. The interference pattern is full in all muscles tested. Impression This is an abnormal study. 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 The needle EMG study of left upper extremity did not show any ongoing denervation. The clinical correlation is recommended. Job ID/VF Job ID: [id number] documented in this encounter Plan of Treatment Not on file documented as of this encounter Procedures Procedure Name Priority Date/Time Associated Diagnosis Comments EMG/NCV Routine 03/20/2018 12:00 AM CDT Carpal tunnel syndrome of left wrist Left hand pain documented in this encounter Results * EMG/NCV -Procedure performed at: [facility]; # Limbs? 1; Anatomical location: E; [facility] (03/20/2018 12:00 AM CDT) Anatomical Region Laterality Modality EMG, EMG Narrative Procedure Note Ron Reagan MD - 03/20/2018 12:00 AM CDT EMG NERVE CONDUCTION STUDY REPORT Patient's History This is a 42-year-old patient being evaluated for tingling and numbness ofleft hand. The study was ordered for evaluation of peripheralneuropathy. Nerve Conduction Study Left median orthodromic sensory nerve conduction study showed normal SNAPpeak latency, normal amplitude and slow sensory nerve conduction velocity.Left ulnar orthodromic sensory nerve conduction study showed normal SNAPpeak latency, normal amplitude and normal sensory nerve conductionvelocity. Left radial antidromic sensory nerve conduction study showednormal SNAP peak latency, normal amplitude and normal sensory nerveconduction velocity. Left median and left ulnar motor nerve conductionstudy showed normal DML, normal CMAP amplitude, normal motor nerveconduction velocity and normal F-wave latency. EMG Study The concentric needle electrode examination was performed on left FDI,APB, flexor carpi radialis, biceps, and deltoid. There was no evidence ofacute or chronic innervation or reinnervation. The interference patternis full in all muscles tested. Impression This is an abnormal study. There was electrophysiologic evidencesuggestive of very mild left median sensory entrapment neuropathy at theflexor retinaculum, for example carpal tunnel syndrome. The needle EMGstudy of left upper extremity did not show any ongoing denervation. Theclinical correlation is recommended. Job ID/VF Job ID: [id number] [facility] ORDERABLES Final Result documented in this encounter Visit Diagnoses Diagnosis Carpal tunnel syndrome of left wrist Left hand pain Pain in soft tissues of limb documented in this encounter Care Teams Wire Repairer Relationship Specialty Start Date End Date Siva Burgos MD [address] [place] [address] PCP - General 05/15/16 documented as of this encounter
--- OUTSIDE RECORDS SUMMARY | 2024-06-23 18:25 | XMS_ITS | Encounter Summary ---
Author Organization [facility] Address [address] [facility] [address] [place] [address] Care Team Providers Care Last Marker Name Role Phone Siva Burgos MD Primary Care Provider [phone] Reason for Referral * Neurology (Routine) - Closed Specialty Diagnoses / Procedures Referred By Travis elizabeth Referred To Contact Diagnoses Carpal tunnel syndrome of left wrist Left hand pain Procedures EMG/NCV -Procedure performed at: [facility]; # Limbs? 1; Anatomical location: LUE; [facility] Keo Kaur PA Phone: tel: fax: [address] [address] Referral ID Status Reason Start Date Expiration Date Visits Re quested Visits Authorized [id number] Closed 02/27/2018 09/08/2019 1 1 * Diagnostic Imaging (Routine) - Closed Specialty Diagnoses / Procedures Referred By Contelijah t Referred To Contact Diagnoses Left hand pain Procedures XR Hand Left 3 or More Views Keo Kaur PA Phone: tel: fax: Referral ID Status Reason Start Date Expiration Date Visits Re quested Visits Authorized [id number] Closed 02/27/2018 09/08/2019 1 1 Reason for Visit * Reason Comments Pain Encounter Details Date Type Department Care Team (Late st Contact Info) Description 02/27/2018 2:00 PM CDT Office Visit [facility] Orthopedics and Sports Medicine [address] [facility] [address] [place] [address] Keo Kaur PA [address] [place] [address] [address] [place] [address] Carpal tunnel syndrome of left wrist (Primary Dx); Left hand pain Social History Tobacco Use Types Packs/Day Years Used Date Smoking Tobacco: Never Smokeless Tobacco: Never Alcohol Use Standard Drinks/Week Comments Yes 0 (1 standard drink = 0.6 oz pur e alcohol) Comments Unknown Sex and Gender Information Value Date Recorded Sex Assigned at Not on file Legal Sex Female 9:53 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 NEW PATIENT VISIT Subjective CHIEF COMPLAINT She had concerns including Pain of the Left Hand. HISTORY OF PRESENT ILLINESS Carpal Tunnel Syndrome Patient complains of left wrist and hand pain. This is evaluated as a personal injury. The onset ofthe pain was gradual, starting about 1 year ago The pain is described as aching and burning. The pain occurs when active and intermittent. The patient has had night time symptoms. Restricted activities include: limited treer activities. The patient has not had Physical Therapy for these symptoms. The pain is relieved by rest EMG studies were not done. 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 Pain Assessment Pain Assessment: No/denies pain PAST MEDICAL HISTORY She has no past medical history on file. PAST SURGICAL HISTORY She has a past surgical history that includes Hemorrhoid surgery and Other surgical history (2017). MEDICATIONS She has a current medication list which includes the following prescription(s): norco, ibuprofen, junel 07/07 (21), zofran, and prednisone. ALLERGIES She has No Known Allergies. SOCIAL HISTORY She reports that she has never smoked. She has never used smokeless tobacco. She reports that she drinks alcohol. FAMILY HISTORY Family History Problem Relation Age of Onset ??? Multiple sclerosis Mother Multiple sclerosis; ??? Cancer Other REVIEW OF SYSTEMS Review of Systems Constitutional: Negative for chills, fever and weight loss. Eyes: Negative for blurred vision. Respiratory: Negative for cough and shortness of breath. Cardiovascular: Positive for leg swelling. Negative for chest pain and palpitations. Gastrointestinal: Positive for diarrhea. Negative for abdominal pain, nausea and vomiting. Genitourinary: Positive for dysuria. Musculoskeletal: Negative for back pain, myalgias and neck pain. Skin: Negative for itching and rash. Neurological: Positive for tingling and weakness. Negative for dizziness and headaches. Psychiatric/Behavioral: Negative for depression. Objective PHYSICAL EXAM BP 95/62 (BP Location: Left arm, Patient Position: Sitting) Pulse 76 Ht 157.5 cm (5' 2 ) Wt 54.9 kg (121 lb) BMI 22.13 kg/m?? Left hand/wrist Inspection The patient has normal [...] of the left fingers. Strength Interossei: 4/5 Behavior Specialist: 4/5 Neurovascular The patient has normal vascular on the left side of their body. The patient has normal sensation with exceptions as noted below. Median: paresthesias Tests Phalen's sign: positive Tinel's sign: positive negativeMedian nerve compression:positive REVIEW OF X-RAYS/STUDIES/LABS XR Hand Left 3 or More Views 4 including carpal tunnel view of the hand are negative for fracture or dislocation. They show minimal OA changes. Assessment/Plan Luciana was seen today for pain. Diagnoses and all orders for this visit: Carpal tunnel syndrome of left wrist Left hand pain - XR Hand Left 3 or More Views Plan She was fitted with a wrist splint today and will have an EMG and follow up with Dr Valdez to discuss CTR. All questions were addressed today and the patient was instructed to call the office with any questions or concerns. LAURO Garza Cosigned by Martin Valdez MD at 02/28/2018 9:42 AM CDT documented in this encounter Plan of Treatment Not on file documented as of this encounter Procedures Procedure Name Priority Date/Time Associated Diagnosis Comments XR HAND LEFT 3 OR MORE VIEWS Schedule Routine, Read Routine (OP Routine) 02/27/2018 2:39 PM CDT Left hand pain documented in this encounter Results * EMG/NCV -Procedure performed at: [facility]; # Limbs? 1; Anatomical location: LUE; [facility] (03/20/2018 12:00 AM CDT) Anatomical Region [...] correlation is recommended. Job ID/VF Job ID: [id number] Keo RESTREPO NEUROLOGY ORDERABLES Final Result * XR Hand Left 3 or More Views (02/27/2018 2:39 PM CDT) Anatomical Region Laterality Modality Upper Extremities, Hand Left Digital Radiography Narrative 02/27/2018 2:39 PM CDT 4 including carpal tunnel view of the hand are negative for fracture or dislocation. They show minimal OA changes. Keo RESTREPO IMG XR PROCEDURES Final Res ult documented in this encounter Visit Diagnoses Diagnosis Carpal tunnel syndrome of left wrist- Primary Left hand pain Pain in soft tissues of limb Carpal tunnel syndrome of left wrist Left hand pain Pain in soft tissues of limb documented in this encounter Historical Medications * This list may reflect changes made after this encounter. Medication Sig Dispense Quantity Refills Last Filled Start D ate End Date predniSONE (DELTASONE) 10 mg tablet 02/15/2018 04/18/2018 JUNEL 07/07, 21, 1-20 mg-mcg per tablet 12/26/2017 018 added in this encounter Care Teams Last Marker Relationship Specialty Start Date End Date Siva Burgos MD [address] [place] [address] PCP - General 05/15/16 documented as of this encounter
--- OUTSIDE RECORDS SUMMARY | 2024-06-23 18:25 | XMS_ITS | Encounter Summary ---
Author Organization [facility] Address [address] [facility] [address] [place] [address] Care Team Providers Care Equipment Operator Warehouse Name Role Phone Siva Burgos MD Primary Care Provider [phone]- [phone] Cori Arreola MD Unavailable [phone] Reason for Visit * Reason Comments Post-op Encounter Details Date Type Department Care Team (Latest Contact Info) Description 05/29/2018 1:00 PM MRI TECHNOLOGIST Office Visit [facility] Orthopedics and Sports Medicine [address] [facility] [address] [place] [address] Keo Kaur PA [address] [place] [address] [address] [place], [place] [id number] Aftercare following surgery of the musculoskeletal system (Primary Dx) Social History Tobacco Use Types Packs/Day Years Used Date Smoking Tobacco: Never Smokeless Tobacco: Never Alcohol Use Standard Drinks/Week Comments Yes 0 (1 standard drink = 0.6 oz pur e alcohol) Comments No Sex and Gender Information Value Date Recorded Sex Assigned at Not on file Legal Sex Female 9:53 AM MRI TECHNOLOGIST Gender Identity Not on file Sexual Orientation Not on file documented as of this encounter Last Filed Vital Signs Vital Sign Reading Time Taken Comments Blood Pressure 113/78 05/29/2018 1:55 PM MRI TECHNOLOGIST Pulse 75 05/29/2018 1:55 PM MRI TECHNOLOGIST Temperature - - Respiratory Rate - - Oxygen Saturation - - Inhaled Oxygen Concentration - - Weight 53.5 kg (118 lb) 05/29/2018 1:55 PM MRI TECHNOLOGIST Height 157.5 cm (5' 2 ) 05/29/2018 1:55 PM MRI TECHNOLOGIST Body Mass Index 21.58 05/29/2018 1:55 PM MRI TECHNOLOGIST documented in this encounter Progress Notes * Keo Kaur PA - 05/29/2018 1:00 PM CST Images from the original note were not included. Luciana Yost follows up for left Carpal tunnel release 13 days. Patient reports they are doingwell. Pain is well controlled. Patient states the presurgical symptoms are improving. Vital Signs: BP 113/78 Pulse 75 Ht 157.5 cm (5' 2 ) Wt 53.5 kg (118 lb) BMI 21.58 kg/m?? Exam: Well approximated healing post operative incision. No active erythema, draining, or signs of infection present. Neurovascular status intact. Full AROM of wrist and digits. Assessment: S/p carpal tunnel release Plan: Sutures were removed and incision care was reviewed. Discussed continued post op expectations and recovery. Patient may progress lifting at 4 weeks post op and resume vigorous activities at 6 weeks post op. Questions were answered. Patient expressed full understanding and agreement of plan. Follow up prn. LAURO Garza TECHNOLOGIST documented in this encounter Plan of Treatment Not on file documented as of this encounter Visit Diagnoses Diagnosis Aftercare following surgery of the musculoskeletal system- Primary Aftercare following surgery of the musculoskeletal system, NEC documented in this encounter Discontinued Medications Medication Sig Discontinue Reason Start Date End Da te HYDROcodone-acetaminophe n (NORCO) 5-325 mg per tabletIndications:Pain Take 1-2 tablets by mouth every 4-6 hours as needed for pain Therapy completed 05/07/2018 05/29/2018 documented as of this encounter Care Teams Equipment Operator Warehouse Relationship Specialty Start Date End Date Siva Burgos MD [address] [place] [address] PCP - General 05/15/16 Cori Arreola MD [address] [address] Referring Physician Gynecology 04/10/18 documented as of this encounter
--- OUTSIDE RECORDS SUMMARY | 2024-06-23 18:25 | XMS_ITS | Encounter Summary ---
Author Organization [facility] Address [address] [place] [address] Phone Care Team Providers Care Suit Maker Name Role Phone Siva Burgos MD Primary Care Provider [phone] Cori Arreola MD Unavailable [phone] Reason for Visit * Reason Comments Breast Problem abnormal hiral, new pt Encounter Details Date Type Department Care Team (Late st Contact Info) Description 04/18/2018 10:40 AM CDT Office Visit [facility] Surgery [address] [facility] [address] 5[address] [place] [address] [place] [id number] Nany Cedillo, [facility] [address] [address] Abnormal findings on diagnostic imaging of breast (Primary Dx) Social History Tobacco Use Types Packs/Day Years Used Date Smoking Tobacco: Never Smokeless Tobacco: Never Alcohol Use Standard Drinks/Week Comments Yes 0 (1 standard drink = 0.6 oz pur e alcohol) Comments No Sex and Gender Information Value Date Recorded Sex Assigned at Not on file Legal Sex Female 9:53 AM PEDIATRIC CNS Gender Identity Not on file Sexual Orientation Not on file documented as of this encounter Last Filed Vital Signs Vital Sign Reading Time Taken Comments Blood Pressure - - Pulse - - Temperature - - Respiratory Rate - - Oxygen Saturation - - Inhaled Oxygen Concentration - - Weight 55.3 kg (122 lb) 04/18/2018 12:01 PM CDT Height 157.5 cm (5' 2 ) 04/18/2018 12:01 PM CDT Body Mass Index 22.31 04/18/2018 12:01 PM CDT documented in this encounter Progress Notes * NguyenNayn, AEGIS CONSOLE OPERATOR TRACK - 04/18/2018 10:40 AM CDT PATIENT NAME: Luciana Yost DATE OF : 1975 DATE OF OFFICE VISIT: 04/18/2018 REFERRING MD: Cori Arreola MD A consultation was requested by Cori Arreola MD for abnormal imaging. CHIEF COMPLAINT: Luciana Yost is a 42 y.o. female with chief complaint of abnormal mammogram. HPI: The patient is a 42 y.o. female who went [facility] for her routine mammograms on 03/07/2018. They noted an abnormality in her left breast and she returned for additional views on 04/09/2018. They noted multiple calcifications in her left breast recommended a biopsy. Dr. Cori Arreolarequested I see this patient in consultation for evaluation of this finding. The patient states that she notes no changes in her breast self-examination, no masses, no change in the appearance of herbreast, in the size of her breast, or in the shape of her breast. She denies any discharge of her nipple. PAST MEDICAL HISTORY: She has a past medical history of Arthritis. She also has no past medical history of Atypical ductal hyperplasia of breast; BRCA1 negative; BRCA1 positive; BRCA2 negative; BRCA2 positive; Breast cancer (CMS/HCC); Breast cyst; Breast injury; Colon cancer (CMS/HCC); Ductal hyperplasia of breast; Endometrial cancer (CMS/HCC); Fibrocystic breast; History of chemotherapy; History of radiation therapy;Lobular carcinoma in situ of breast; Ovarian cancer (CMS/HCC); Smoking; or Thyroid cancer (CMS/HCC). PAST SURGICAL HISTORY: She has a past surgical history that includes Hemorrhoid surgery; Other surgical history (2017); and Cholecystectomy (2017). MEDICATIONS: She currently has no medications in their medication list. ALLERGIES: She has No Known Allergies. FAMILY HISTORY: Her family history includes Cancer in an other family member; Multiple sclerosis in her mother; Prostate cancer (age of onset: 68) in her father. SOCIAL HISTORY: She reports that she has never smoked. She has never used smokeless tobacco. She reports that she drinks alcohol. Her drug history is not on file. I have reviewed the patients health history sheet signed and placed in the chart today. REVIEW OF SYSTEMS: GENERAL: Denies fevers, chills or malaise. SKIN: No concerning lesions or skin changes noted on face, neck or trunk. NOSE AND THROAT: Mucosal membranes intact. EYES: Extraocular movements intact. Sclerae - no jaundice. NECK; Denies neck masses, or difficulty swallowing. RESPIRATORY: Denies cough, sputum, hemoptysis, TB, pneumonia. CARDIAC: Denies chest pain, palpitations, dyspnea, orthopnea. GASTROINTESTINAL: Denies nausea, dyspepsia, vomiting, vomiting of blood, rectal bleeding or black/tarry stools. URINARY: Denies polyuria, dysuria, nocturia, infections. VASCULAR: Denies intermittent claudication, leg cramps, thrombophlebitis. Denies DVT, PE. MUSCULOSKELETAL: No evidence of rib, long bone or spine pain. NEUROLOGIC: Denies recent fainting, blackouts, seizures, paralysis, tremors, stroke. HEMATOLOGIC: Denies easy bruising or bleeding, past transfusion reactions. PHYSICAL EXAMINATION: General: Well-developed, well-nourished who is in no apparent distress. Eyes: PERRLA, EOM intact. HEENT: NC/AT, sclerae anicteric. Neck: Supple, without thyromegaly or adenopathy. Respiratory: No shortness of breath noted. Cardiovascular: Regular rate and rhythm. Gastrointestinal: Soft, nontender, nondistended, without obvious masses. Extremities: No edema or cyanosis. Musculoskeletal: Normal range of motion. Neurological examination: Alert and oriented x 3, otherwise grossly nonfocal. Skin/Soft Tissue: No appreciable cervical, supraclavicular, axillary, or inguinal adenopathy. Breast: Examination of the breasts in the upright and supine positions reveal she has no mass, nipple discharge, palpable axillary mass, skin changes, skin dimpling or abnormalities noted in either breast. LABORATORY: None RADIOLOGY: I personally reviewed her diagnostic imaging which demonstrated milk of calcium and she was given acategory [address] August. PATHOLOGY: None IMPRESSION: Abnormal findings at an outside facility with repeat imaging at our institution demonstrating benign findings. PLAN: She is going to continue to monitor her breast self-examination will notify us immediately if she identifies any new changes or problems. I have instructed her to obtain a mammogram on a yearly basis. She is planning on returning to her outside facility. We will plan on seeing her back as needed. Nany Cedillo, MSN, BEHAVIORAL PSYCHOLOGIST- Endocrine and Oncology Surgery I have reviewed the history, physical, clinical exam, social and surgical history and I concur withthe findings. Cruzito Ochoa M.D. telecommunication tower technician Endocrine Oncology Surgery Cosigned by Cruzito Ochoa MD at 04/18/2018 6:43 PM CDT documented in this encounter Plan of Treatment Not on file documented as of this encounter Visit Diagnoses Diagnosis Abnormal findings on diagnostic imaging of breast- Primary Other (abnormal) findings on radiological examination of breast documented in this encounter Discontinued Medications Medication Sig Discontinue Reason Start Date End Da te HYDROcodone-acetaminophe n (NORCO) 5-325 mg per tablet take 1 tablet by oral route every 4 - 6 hours as needed for pain 05/14/2016 04/18/2018 ibuprofen (ADVIL,MOTRIN) 800 mg tablet take 1 tablet by oral route 3 times every day with food 05/14/2016 04/18/2018 JUNEL 07/07, 21, 1-20 mg-mcg per tablet 12/26/2017 04/18/2018 ondansetron (ZOFRAN, HYDROCHLORIDE,) 4 mg tablet take 1 tablet by oral route every 6 hours prn 05/14/2016 04/18/2018 predniSONE (DELTASONE) 10 mg tablet 02/15/2018 04/18/2018 documented as of this encounter Care Teams Suit Maker Relationship Specialty Start Date End Date Siva Burgos MD [address] [place] [address] PCP - General 05/15/16 Cori Arreola MD [address] [address] Referring Physician Gynecology 04/10/18 documented as of this encounter
--- OUTSIDE RECORDS SUMMARY | 2024-06-23 18:25 | XMS_ITS | Encounter Summary ---
Author Organization [facility] Address [address] [facility] [address] [place] [address] Care Team Providers Care Nba Player Name Role Phone Siva Burgos MD Primary Care Provider [phone] Encounter Details Date Type Department Care Team (Late st Contact Info) Description 04/05/2018 Telephone [facility] Medical [facility] Orthopedics and Sports Medicine [address] [facility] [address] [place] [phone] Martin Valdez MD [address] [place] [address] [address] [place] [address] Social History Tobacco Use Types Packs/Day Years Used Date Smoking Tobacco: Never Smokeless Tobacco: Never Alcohol Use Standard Drinks/Week Comments Yes 0 (1 standard drink = 0.6 oz pur e alcohol) Comments Unknown Sex and Gender Information Value Date Recorded Sex Assigned at Not on file Legal Sex Female 9:53 AM SHOVEL OPERATOR Gender Identity Not on file Sexual Orientation Not on file documented as of this encounter Miscellaneous Notes * Telephone Encounter - Neela Orellana - 04/05/2018 3:50 PM CDT Patient called in and moved surgery date from 04/25 to 05/16. Notified Dara at [facility] documented in this encounter Plan of Treatment Not on file documented as of this encounter Visit Diagnoses Not on filedocumented in this encounter Care Teams Nba Player Relationship Specialty Start Date End Date Siva Burgos MD [address] [place] [address] PCP - General 05/15/16 documented as of this encounter
--- OUTSIDE RECORDS SUMMARY | 2024-06-23 18:25 | XMS_ITS | Encounter Summary ---
Author Organization [facility] Address [address] [place] [address] Care Team Providers Care Certified Surgical Technologist Name Role Phone Siva Burgos MD Primary Care Provider [phone] Cori Arreola MD Unavailable [phone] Reason for Visit * Reason Comments PT Treatment Encounter Details Date Type Department Care Team (Late st Contact Info) Description 02/03/2020 1:00 PM CDT Therapy [facility] Physical [place] [address] Yoshi Brock, PT Lateral epicondylitis of left [...] on file Legal Sex Female 9:53 AM CARDIAC SPECIALIST Gender Identity Not on file Sexual Orientation Not on file documented as of this encounter Progress Notes * Yoshi Brock, PT - 02/03/2020 1:00 PM CDT PT Daily Treatment Note Luciana Yost 1975 Subjective: Patient reports that her elbow feels a little sore. Pain: 2/10 Objective:See treatment provided. Treatment Provided: [...] Plan to cont per POC. Start Time: 1300 End Time:1355 Yoshi Brock PT documented in this encounter Plan of Treatment Not on file documented as of this encounter Visit Diagnoses Diagnosis Lateral epicondylitis of left elbow- Primary De Quervain's disease (radial styloid tenosynovitis) documented in this encounter Care Teams Certified Surgical Technologist Relationship Specialty Start Date End Date Siva Burgos MD [address] [place] [address] PCP - General 05/15/16 Cori Arreola MD [address] [address] Referring Physician Gynecology 04/10/18 documented as of this encounter
--- OUTSIDE RECORDS SUMMARY | 2024-06-23 18:25 | XMS_ITS | Encounter Summary ---
Author Organization [facility] Address [address] [place] [address] Care Team Providers Care News Videographer Name Role Phone Siva Burgos MD Primary Care Provider [phone] Cori Arreola MD Unavailable [phone] Reason for Visit * Reason Comments PT Treatment Encounter Details Date Type Department Care Team (Late st Contact Info) Description 02/10/2020 1:00 PM CDT Therapy [facility] Physical [place] [address] Yoshi Brock, PT De Quervain's disease (radial [...] on file Legal Sex Female 9:53 AM ADVISORY SERVICES ASSOCIATE Gender Identity Not on file Sexual Orientation Not on file documented as of this encounter Progress Notes * Yoshi Brock, PT - 02/10/2020 1:00 PM CDT PT Daily Treatment Note Luciana Yost 1975 Subjective: Patient reports that her elbow feels a little sore today. Pain: 2/10 Objective: See treatment provided. Treatment Provided: HP [...] Plan to cont per POC. Start Time: 1252 End Time:1352 Yoshi Brock PT documented in this encounter Plan of Treatment Not on file documented as of this encounter Visit Diagnoses Diagnosis De Quervain's disease (radial styloid tenosynovitis)- Primary Lateral epicondylitis of left elbow documented in this encounter Care Teams News Videographer Relationship Specialty Start Date End Date Siva Burgos MD [address] [place] [address] PCP - General 05/15/16 Cori Arreola MD [address] [address] Referring Physician Gynecology 04/10/18 documented as of this encounter
--- OUTSIDE RECORDS SUMMARY | 2024-06-23 18:25 | XMS_ITS | Encounter Summary ---
Author Organization [facility] Address [address] [place] [address] Phone Care Team Providers Care Turbine Engineer Name Role Phone Siva Burgos MD Primary Care Provider [phone]- [phone] Cori Arreola MD Unavailable [phone] Encounter Details Date Type Department Care Team (Late st Contact Info) Description 04/17/2018 Orders Only [facility] Surgery [address] [facility] Advanced Medicine 5th [place] [address] [place] [address] Nany Cedillo, [facility] [address] [address] Social History Tobacco Use Types Packs/Day Years Used Date Smoking Tobacco: Never Smokeless Tobacco: Never Alcohol Use Standard Drinks/Week Comments Yes 0 (1 standard drink = 0.6 oz pur e alcohol) Comments No Sex and Gender Information Value Date Recorded Sex Assigned at Not on file Legal Sex Female 9:53 AM FLIGHT RADIO OFFICER Gender Identity Not on file Sexual Orientation Not on file documented as of this encounter Plan of Treatment Not on file documented as of this encounter Visit Diagnoses Not on filedocumented in this encounter Care Teams Turbine Engineer Relationship Specialty Start Date End Date Siva Burgos MD [address] [place] [address] PCP - General 05/15/16 Cori Arreola MD [address] [address] Referring Physician Gynecology 04/10/18 documented as of this encounter
--- OUTSIDE RECORDS SUMMARY | 2024-06-23 18:25 | XMS_ITS | Encounter Summary ---
Author Organization [facility] Address [address] [place] [address] Care Team Providers Care Snuff Grinder Name Role Phone Siva Burgos MD Primary Care Provider [phone]- [phone] Cori Arreola MD Unavailable [phone] Reason for Visit * Reason Comments PT Treatment Encounter Details Date Type Department Care Team (Late st Contact Info) Description 02/06/2020 11:00 AM CDT Therapy [facility] Physical Therapy - [place] [address] Wendie Dozier PTA Lateral epicondylitis of left elbow (Primary Dx); [...] on file Legal Sex Female 9:53 AM ANIMAL THERAPIST Gender Identity Not on file Sexual Orientation Not on file documented as of this encounter Progress Notes * Wendie Dozier PTA - 02/06/2020 11:00 AM CDT PT Daily Treatment Note Luciana Yost 1975 Subjective: Patient reports that her elbow feels a little sore today from scrubbing the kitchen floor. Pain: 2/10 Objective: See treatment provided. Treatment [...] Plan to cont per POC. Start Time: 11:00 End Time:11:45 Wendie Dozier PTA documented in this encounter Plan of Treatment Not on file documented as of this encounter Visit Diagnoses Diagnosis Lateral epicondylitis of left elbow- Primary De Quervain's disease (radial styloid tenosynovitis) documented in this encounter Care Teams Snuff Grinder Relationship Specialty Start Date End Date Siva Burgos MD [address] [place] [address] PCP - General 05/15/16 Cori Arreola MD [address] [address] Referring Physician Gynecology 04/10/18 documented as of this encounter
--- OUTSIDE RECORDS SUMMARY | 2024-06-23 18:25 | XMS_ITS | Encounter Summary ---
Author Organization [facility] Address [address] [place] [address] Care Team Providers Care Stock Checker Name Role Phone Siva Burgos MD Primary Care Provider [phone]- [phone] Reason for Referral * Diagnostic Imaging (Routine) - Closed Specialty Diagnoses / Procedures Referred By Travis elizabeth Referred To Contact Diagnoses Abnormal mammogram Procedures Diagnostic Mammogram Left W Cori Mayers MD Phone: tel: fax: [address] [phone] Referral ID Status Reason Start Date Expiration Date Visits Re quested Visits Authorized [id number] Closed 03/29/2018 10/08/2019 1 1 Reason for Visit * Diagnostic Imaging (Routine) - Closed Specialty Diagnoses / Procedures Referred By Travis elizabeth Referred To Contact Diagnoses Abnormal mammogram Procedures Diagnostic Mammogram Left W Cori Mayers MD Phone: tel: fax: [address] [phone] Referral ID Status Reason Start Date Expiration Date Visits Re quested Visits Authorized [id number] Closed 03/29/2018 10/08/2019 1 1 Encounter Details Date Type Department Care Team (Late st Contact Info) Description 04/09/2018 1:44 PM CDT - 04/09/2018 11:59 PM CDT Hospital Encounter [facility] [address] [place] [address] Cori Arreola MD [address] [place] [address] Abnormal mammogram Discharge Disposition: Discharge to home or self care Social History Tobacco Use Types Packs/Day Years Used Date Smoking Tobacco: Never Smokeless Tobacco: Never Alcohol Use Standard Drinks/Week Comments Yes 0 (1 standard drink = 0.6 oz pur e alcohol) Comments No Sex and Gender Information Value Date Recorded Sex Assigned at Not on file Legal Sex Female 9:53 AM RETAIL SUPPORT MANAGER Gender Identity Not on file Sexual Orientation Not on file documented as of this encounter Last Filed Vital Signs Vital Sign Reading Time Taken Comments Blood Pressure - - Pulse - - Temperature - - Respiratory Rate - - Oxygen Saturation - - Inhaled Oxygen Concentration - - Weight 55.3 kg (122 lb) 04/09/2018 1:53 PM CDT Height 158.8 cm (5' 2.5 ) 04/09/2018 1:53 PM CDT Body Mass Index 21.96 04/09/2018 1:53 PM CDT documented in this encounter Medications at Time of Discharge [id number]-[id number]-dha-ep a-[id number]-oxb 1,[id number] mg capsuleIndication s:stop 5 days before surgery Take by mouth HYDROcodone-aceta minophen (NORCO) 5-325 mg per tablet take 1 tablet by oral route every 4 - 6 hours as needed for pain 0 0 05/14/2016 04/18/2018 ibuprofen (ADVIL,MOTRIN) 800 mg tablet take 1 tablet by oral route 3 times every day with food 0 0 05/14/2016 04/18/2018 JUNEL 120, 21, 1-20 mg-mcg per tablet 12/26/2017 04/18/2018 [...] Priority Date/Time Associated Diagnosis Comments DIAGNOSTIC MAMMOGRAM LEFT W SAUNDRA Schedule Routine, Read Routine (OP Routine) 04/09/2018 2:00 PM CDT Abnormal mammogram documented in this encounter Results * (ABNORMAL) Diagnostic Mammogram Left W Saundra (04/09/2018 2:00 PM CDT) Anatomical Region Laterality Modality Breast Left Mammography 04/09/2018 2:02 PM CDT Impressions 04/09/2018 2:07 PM CDT MULTIPLE CALCIFICATIONS LEFT BREAST. ??GEOGRAPHIC AREA UPPER LEFT BREAST WITH MULTIPLE MICROCALCIFICATIONS. ??THIS IS SUSPICIOUS. ??MRI MAY BE MOST BENEFICIAL, OR STEREOTACTIC BIOPSY COULD BE CONSIDERED. . BI-RADS 4 Electronically signed by: Dayo Milan 04/09/2018 2:07 PM CDT DIAGNOSTIC MAMMOGRAM LEFT W SAUNDRA HISTORY: Other abnormal and inconclusive findings on diagnostic imaging of breast. ??Increased calcifications upper left breast. TECHNIQUE: Magnification view for the upper left breast, as well as lateral medial view with tomosynthesis images. COMPARISON: 03/07/2018. FINDINGS: Left breast is extremely dense. ??Numerous microcalcifications left breast. ??On magnification view a geographic area with multiple calcifications is seen. ??Given the increased number this is suspicious. ??No dominant mass is seen. Digital technology was employed plus computer aided detection software (R2) was utilized in interpretation of these images. ??This facility utilizes a reminder system to notify patient's of yearly mammograms. Cori Arreola MD IMG MAMMO PROCEDURES Fin al Result documented in this encounter Visit Diagnoses Diagnosis Abnormal mammogram Abnormal mammogram, unspecified documented in this encounter Care Teams Stock Checker Relationship Specialty Start Date End Date Siva Burgos MD [address] [place] [address] PCP - General 05/15/16 documented as of this encounter
--- OUTSIDE RECORDS SUMMARY | 2024-06-23 18:25 | XMS_ITS | Encounter Summary ---
Author Organization [facility] Address [address] [place] [address] Phone Care Team Providers Care Point Of Care Specialist Name Role Phone Siva Burgos MD Primary Care Provider [phone]- [phone] Cori Arreola MD Unavailable [phone] Encounter Details Date Type Department Care Team (Late st Contact Info) Description 04/10/2018 Orders Only [facility] Surgery [address] [facility] Advanced Medicine 5th [place] [address] [place] [address] Nany Cedillo, [facility] [address] [address] Abnormal mammogram with microcalcification (Primary Dx) Social History Tobacco Use Types Packs/Day Years Used Date Smoking Tobacco: Never Smokeless Tobacco: Never Alcohol Use Standard Drinks/Week Comments Yes 0 (1 standard drink = 0.6 oz pur e alcohol) Comments No Sex and Gender Information Value Date Recorded Sex Assigned at Not on file 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 Gender Identity Not on file Sexual Orientation Not on file documented as of this encounter Plan of Treatment Scheduled Orders Name Type Priority Associated Diagnoses Orde r Schedule Breast Imaging Outside Consult Imaging Routine Abnormal mammogram with microcalcification Expected: 04/18/2018, Expires: 04/10/2019 documented as of this encounter Visit Diagnoses Diagnosis Abnormal mammogram with microcalcification- Primary documented in this encounter Care Teams Point Of Care Specialist Relationship Specialty Start Date End Date Siva Burgos MD [address] [place] [address] PCP - General 05/15/16 Cori Arreola MD [address] [address] Referring Physician Gynecology 04/10/18 documented as of this encounter
--- OUTSIDE RECORDS SUMMARY | 2024-06-23 18:25 | XMS_ITS | Encounter Summary ---
Author Organization [facility] Address [address] [address] Care Team Providers Care Pier Hand Helper Name Role Phone Siva Burgos MD Primary Care Provider [phone]- [phone] Cori Arreola MD Unavailable [phone] Reason for Visit * Diagnostic Imaging (Routine) - Closed Specialty Diagnoses / Procedures Referred By Travis elizabeth Referred To Contact Diagnoses Left elbow pain Procedures XR Elbow Left 3+ View Cherie Das MD Phone: tel: fax: Referral ID Status Reason Start Date Expiration Date Visits Re quested Visits Authorized [id number] Closed 12/24/2019 07/04/2021 1 1 Encounter Details Date Type Department Care Team (Latest Contact Info) Description 12/24/2019 1:19 PM CDT - 12/24/2019 11:59 PM CDT Hospital Encounter [facility] Orthopedics and Sports Medicine [address] [place] [phone] Discharge Disposition: Discharge to home or self care Social History Tobacco Use Types Packs/Day Years Used Date Smoking Tobacco: Never Smokeless Tobacco: Never Alcohol Use Standard Drinks/Week Comments Yes 0 (1 standard drink = 0.6 oz pur e alcohol) Comments No Sex and Gender Information Value Date Recorded Sex Assigned at Not on file 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 Gender Identity Not on file Sexual Orientation Not on file documented as of this encounter Medications at Time of Discharge ascorbic acid (VITAMIN C) 500 mg tablet,chewable Take 1 tablet by mouth 2 times daily until finished 60 tablet/chew tab 05/07/2018 ibuprofen (ibuprofen) 200 mg tab/cap Take by mouth every 6 (six) hours as needed for pain ugvti-fz-1-dha-ep u-vfawxrh-rts 1,511-969-56-80 mg capsuleIndication s:stop 5 days before surgery [...] on filedocumented in this encounter Care Teams Pier Hand Helper Relationship Specialty Start Date End Date Siva Burgos MD [address] [place] [address] PCP - General 05/15/16 Cori Arreola MD [address] [address] Referring Physician Gynecology 04/10/18 documented as of this encounter
--- OUTSIDE RECORDS SUMMARY | 2024-06-23 18:25 | XMS_ITS | Encounter Summary ---
Author Organization [facility] Address [address] [address] Care Team Providers Care Technology Lead Name Role Phone Siva Burgos MD Primary Care Provider [phone]- [phone] Cori Arreola MD Unavailable [phone] Encounter Details Date Type Department Care Team (Late st Contact Info) Description 05/07/2018 Orders Only [facility] Orthopedics and Sports Medicine [address] [place] [address] Keo Kaur PA [address] [place] [address] [address] NU[address]EZ [address] [place] [address] Social History Tobacco Use Types Packs/Day Years Used Date Smoking Tobacco: Never Smokeless Tobacco: Never Alcohol Use Standard Drinks/Week Comments Yes 0 (1 standard drink = 0.6 oz pur e alcohol) Comments No Sex and Gender Information Value Date Recorded Sex Assigned at Not on file 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 Gender Identity Not on file Sexual Orientation Not on file documented as of this encounter Ordered Prescriptions Prescription Sig Dispense Quantity Refills Last Filled Start Date End Date ascorbic acid (VITAMIN C) 500 mg tablet,chewable Take 1 tablet by mouth 2 times daily until finished 60 tablet/chew tab 05/07/2018 HYDROcodone-acetam inophen (NORCO) 5-325 mg per tabletIndications: Pain Take 1-2 tablets by mouth every 4-6 hours as needed for pain 3 tablet 05/07/2018 8 documented in this encounter Plan of Treatment Not on file documented as of this encounter Visit Diagnoses Not on filedocumented in this encounter Care Teams Technology Lead Relationship Specialty Start Date End Date Siva Burgos MD [address] [place] [address] PCP - General 05/15/16 Cori Arreola MD [address] [address] Referring Physician Gynecology 04/10/18 documented as of this encounter
--- OUTSIDE RECORDS SUMMARY | 2024-06-23 18:25 | XMS_ITS | Encounter Summary ---
Author Organization [facility] Address [address] [place] [address] Care Team Providers Care Country Sales Manager Name Role Phone Unavailable Primary Care Provider Unavailabl e Encounter Details Date Type Department Care Team (Late st Contact Info) Description 02/03/2010 12:01 AM CDT - 02/03/2010 11:59 PM CDT Hospital Encounter [facility] Siva Burgos MD [address] [place] [address] Pain in soft tissues of limb Social History Tobacco Use Types Packs/Day Years Used Date Smoking Tobacco: Never Assessed Comments Unknown Sex and Gender Information Value Date Recorded Sex Assigned at Not on file 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
--- OUTSIDE RECORDS SUMMARY | 2024-06-23 18:25 | XMS_ITS | Encounter Summary ---
Author Organization [facility] Address [address] [facility] [address] [place] [address] Care Team Providers Care Printing Pressman Name Role Phone Siva Burgos MD Primary Care Provider [phone] Cori Arreola MD Unavailable [phone] Reason for Visit * Reason Onset Date Comments Post-op Problem 05/17/2018 Encounter Details Date Type Department Care Team (Late st Contact Info) Description 05/17/2018 Telephone [facility] Orthopedics and Sports Medicine [address] [place] [address] [address], [place] [id number] Erika Nina MA Post-op Problem Social History Tobacco Use Types Packs/Day Years Used Date Smoking Tobacco: Never Smokeless Tobacco: Never Alcohol Use Standard Drinks/Week Comments Yes 0 (1 standard drink = 0.6 oz pur e alcohol) Comments No Sex and Gender Information Value Date Recorded Sex Assigned at Not on file 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 Gender Identity Not on file Sexual Orientation Not on file documented as of this encounter Miscellaneous Notes * Telephone Encounter - Erika Nina MA - 05/17/2018 2:31 PM CST Called and left a message for patient post op URCE CONSERVATIONIST documented in this encounter Plan of Treatment Not on file documented as of this encounter Visit Diagnoses Not on filedocumented in this encounter Care Teams Printing Pressman Relationship Specialty Start Date End Date Siva Burgos MD [address] [place] [address] PCP - General 05/15/16 Cori Arreola MD [address] [address] Referring Physician Gynecology 04/10/18 documented as of this encounter
--- OUTSIDE RECORDS SUMMARY | 2024-06-23 18:25 | XMS_ITS | Encounter Summary ---
Author Organization [facility] Address [address] [place] [address] Care Team Providers Care Public Welfare Director Name Role Phone Siva Burgos MD Primary Care Provider [phone]- [phone] Encounter Details Date Type Department Care Team (Late st Contact Info) Description 03/09/2017 9:41 AM CDT - 03/09/2017 11:59 PM CDT Hospital Encounter [facility]IM Cori Arreola MD [address] [address] Discharge Disposition: Discharge to home or self care Social History Tobacco Use Types Packs/Day Years Used Date Smoking Tobacco: Never Alcohol Use Standard Drinks/Week Comments Yes 0 (1 standard drink = 0.6 oz pur e alcohol) Comments Unknown Sex and Gender Information Value Date Recorded Sex Assigned at Not on file 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 Gender Identity Not on file Sexual Orientation [...] 05/14/2016 04/18/2018 documented as of this encounter Discharge Disposition Disposition Code Departure Means Destination Discharge to home or self care documented in this encounter Plan of Treatment Not on file documented as of this encounter Procedures Procedure Name Priority Date/Time Associated Diagnosis Comments MAMMOGRAPHY, TOMOGRAPHY, BILATERAL Routine 03/09/2017 3:22 PM CDT documented in this encounter Results * MAMMOGRAPHY, TOMOGRAPHY, BILATERAL (03/09/2017 3:22 PM CDT) Anatomical Region Laterality Modality Breast Bilateral Mammography 03/09/2017 3:22 PM CDT Narrative 03/09/2017 3:22 PM CDT SCREENING MAMM W SAUNDRA BI ??Acc#: ??[id number] DATE OF EXAM: ??Mar 09 2017 ?? SCREENING MAMM W SAUNDRA BI HISTORY: Screening TECHNIQUE: Severe-inferior and lateral oblique views were obtained with tomosynthesis. COMPARISON: 08/17/2015 and 05/27/2013 FINDINGS: There is considerable fibroglandular tissue throughout both breasts. ??Multiple areas of calcification are present with the appearance being rather similar to the exam of 08/17/2015. ??A small lesion could be obscured in this dense breasts with multiple calcifications. ??No lesion was identified. ??A process such as sclerosing adenosis may explain the numerous calcifications. IMPRESSION: DENSE FIBROGLANDULAR TISSUE AND MULTIPLE CALCIFICATIONS MAKING EXAMS SOMEWHAT LESS RELIABLE. ??NO NEOPLASM IDENTIFIED. SUGGEST FOLLOW-UP MAMMOGRAM IN ONE YEAR TO FURTHER ESTABLISH STABILITY. ??THE PATIENT SHOULD DEVELOP DEFINITE SIGNS OR SYMPTOMS OF BREAST DISEASES COULD BE OBTAINED EARLIER. ??BI-RADS CATEGORY 2. Electronically signed by: Adiel Gomez M.D Interpreting Physician: ??ADIEL GOMEZ M.D. ??Read on: ??Mar 09 2017 10:28A Transcribed by: ??PSC ??On: Mar 09 2017 10:26A Approved Electronically by: ??ADIEL GOMEZ M.D. ??on: ??Mar 09 2017 10:26A Ordering DR: REFERRAL SELF Attending DR: DR CORI ARREOLA Attending: ??DR CORI ARREOLA Requesting: ??SELF, REFERRAL Requesting Fax: ??-- Attending Fax: ??[phone] Attending ID: ??[id number] Requesting ID: ??[id number] Report To 1 ID: ??[id number] Report To 1 Name: ??DR CORI ARREOLA Report To 1 FAX: ??[phone] NextGen Order #: ?? Procedure Note Miscellaneous, Not In File / Provider, MD Jocelyne - 03/09/2017 SCREENING MAMM W SAUNDRA BI Acc#: [id number] DATE OF EXAM: Mar 09 2017 SCREENING MAMM W SAUNDRA BI HISTORY: Screening TECHNIQUE: Severe-inferior and lateral oblique views were obtained with tomosynthesis. COMPARISON: 08/17/2015 and 05/27/2013 FINDINGS: There is considerable fibroglandular tissue throughout both breasts. Multiple areas of calcification are present with the appearance being rather similar to the exam of 08/17/2015. A small lesion could be obscured in this dense breasts with multiple calcifications. No lesion was identified. A process such as sclerosing adenosis may explain the numerous calcifications. IMPRESSION: DENSE FIBROGLANDULAR TISSUE AND MULTIPLE CALCIFICATIONS MAKING EXAMS SOMEWHAT LESS RELIABLE. NO NEOPLASM IDENTIFIED. SUGGEST FOLLOW-UP MAMMOGRAM IN ONE YEAR TO FURTHER ESTABLISH STABILITY. THE PATIENT SHOULD DEVELOP DEFINITE SIGNS OR SYMPTOMS OF BREAST DISEASES COULD BE OBTAINED EARLIER. BI-RADS CATEGORY 2. Electronically signed by: Adiel Gomez M.D Interpreting Physician: ADIEL GOMEZ M.D. Read on: Mar 09 2017 10:28A Transcribed by: [facility] On: Mar 09 2017 10:26A Approved Electronically by: ADIEL GOMEZ M.D. on: Mar 09 2017 10:26A Ordering DR: REFERRAL SELF Attending DR: DR CORI ARREOLA Attending: DR CORI ARREOLA Requesting: SELF, REFERRAL Requesting Fax: -- Attending Attending ID: [id number] Requesting ID: [id number] Report To 1 ID: [id number] Report To 1 Name: DR CORI ARREOLA Report To 1 FAX: [phone] NextGen Order #: us Not In File Miscellaneous IMG MAMMO PROCEDURES E dited Result - Final documented in this encounter Visit Diagnoses Not on filedocumented in this encounter Care Teams Public Welfare Director Relationship Specialty Start Date End Date Siva Burgos MD [address] [place] [address] PCP - General 05/15/16 documented as of this encounter
--- OUTSIDE RECORDS SUMMARY | 2024-06-23 18:25 | XMS_ITS | Encounter Summary ---
Author Organization [facility] Healthcare Address [address] [place] [address] Care Team Providers Care Air Bag Buffer Name Role Phone Siva Burgos MD Primary Care Provider [phone]- [phone] Cori Arreola MD Unavailable [phone] Encounter Details Date Type Department Care Team (Latest Contact Info) Description 04/16/2018 8:10 PM CDT - 04/16/2018 11:59 PM CDT Hospital Encounter [facility] [address] [place] [address] Discharge Disposition: Discharge to home or self care Social History Tobacco Use Types Packs/Day Years Used Date Smoking Tobacco: Never Smokeless Tobacco: Never Alcohol Use Standard Drinks/Week Comments Yes 0 (1 standard drink = 0.6 oz pur e alcohol) Comments No Sex and Gender Information Value Date Recorded Sex Assigned at Not on file 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 Gender Identity Not on file Sexual Orientation Not on file documented as of this encounter Medications at Time of Discharge lstru-ry-7-dha-ep r-bjpvmub-bhk 1,435-190-39-80 mg capsuleIndication s:stop 5 days before surgery Take by mouth HYDROcodone-aceta minophen (NORCO) 5-325 mg per tablet take 1 tablet by oral route every 4 - 6 hours as needed for pain 0 0 05/14/2016 04/18/2018 ibuprofen (ADVIL,MOTRIN) 800 mg tablet take 1 tablet by oral route 3 times every day with food 0 0 05/14/2016 04/18/2018 JUNEL 1/20, 21, 1-20 mg-mcg per tablet 12/26/2017 04/18/2018 [...] Procedure Name Priority Date/Time Associated Diagnosis Comments BREAST IMAGING OUTSIDE CONSULT Routine 04/16/2018 8:10 PM CDT Abnormal mammogram documented in this encounter Results * Breast Imaging Outside Consult (04/16/2018 8:10 PM CDT) Anatomical Region Laterality Modality Breast N/A Mammography 04/17/2018 7:09 AM CDT Impressions 04/17/2018 10:28 AM CDT Diffuse calcifications in the upper LEFT breast, likely representing milk of calcium. Additional diagnostic views are recommended for further characterization. RECOMMENDATION: Additional imaging - diagnostic mammography. NOTE: The findings, conclusions and recommendations within this report do not replace the initial findings, conclusions and recommendations made at the facility where the study was performed based upon the imaging and clinical condition at that time. Review of the prior report and correlation with the clinical history are necessary. The provided images may or may not represent the lummi source data set and thus may contain changes which may lower the sensitivity of the second opinion interpretation. Dictated by: Misha Sadler M.D. Electronically signed by: Ross Booker M.D. Narrative 04/17/2018 10:28 AM CDT EXAMINATION: REVIEW AND INTERPRETATION OF OUTSIDE IMAGING FACILITY PERFORMING OUTSIDE IMAGING: [facility] EXAM(S) REVIEWED: 1. ??LEFT UNILATERAL DIAGNOSTIC MAMMOGRAM WITH TOMOSYNTHESIS dated 04/09/2018, 2 images 2. ??BILATERAL DIAGNOSTIC MAMMOGRAM WITH TOMOSYNTHESIS dated 03/15/2018, 5 images DATE OF INTERPRETATION: 04/17/2018 PHYSICIAN REQUESTING REVIEW: DR. CRUZITO VELÁSQUEZ, who is seeing the patient in the Breast Surgery Clinic. HISTORY: 42 year old woman with screening detected calcifications in the upper LEFT breast initially evaluated at outside facility. COMPARISON: Mammogram 03/09/2017, 08/17/2015, 05/27/2013 BREAST PARENCHYMAL COMPOSITION: The breasts are extremely dense, which lowers the sensitivity of mammography. FINDINGS: On the magnification mediolateral oblique views, there are diffuse scattered calcifications in the upper LEFT breast at middle depth. On the mediolateral view, some of these calcifications may be layering. Multiple additional similar appearing calcifications are noted diffusely in the RIGHT and LEFT breasts. There is no mass, calcification or architectural distortion suggestive of malignancy in the RIGHT breast. Procedure Note Ross Booker MD - 04/17/2018 EXAMINATION: REVIEW AND INTERPRETATION OF OUTSIDE IMAGING FACILITY PERFORMING OUTSIDE IMAGING: [facility] EXAM(S) REVIEWED: 1. LEFT UNILATERAL DIAGNOSTIC MAMMOGRAM WITH TOMOSYNTHESIS dated 04/09/2018, 2 images 2. BILATERAL DIAGNOSTIC MAMMOGRAM WITH TOMOSYNTHESIS dated 03/15/2018, 5 images DATE OF INTERPRETATION: 04/17/2018 PHYSICIAN REQUESTING REVIEW: DR. CRUZITO VELÁSQUEZ, who is seeing the patient in the Breast Surgery Clinic. HISTORY: 42 year old woman with screening detected calcifications in the upper LEFT breast initially evaluated at outside facility. COMPARISON: Mammogram 03/09/2017, 08/17/2015, 05/27/2013 BREAST PARENCHYMAL COMPOSITION: The breasts are extremely dense, which lowers the sensitivity of mammography. FINDINGS: On the magnification mediolateral oblique views, there are diffuse scattered calcifications in the upper LEFT breast at middle depth. On the mediolateral view, some of these calcifications may be layering. Multiple additional similar appearing calcifications are noted diffusely in the RIGHT and LEFT breasts. There is no mass, calcification or architectural distortion suggestive of malignancy in the RIGHT breast. IMPRESSION: Diffuse calcifications in the upper LEFT breast, likely representing milk of calcium. Additional diagnostic views are recommended for further characterization. RECOMMENDATION: Additional imaging - diagnostic mammography. NOTE: The findings, conclusions and recommendations within this report do not replace the initial findings, conclusions and recommendations made at the facility where the study was performed based upon the imaging and clinical condition at that time. Review of the prior report and correlation with the clinical history are necessary. The provided images may or may not represent the lummi source data set and thus may contain changes which may lower the sensitivity of the second opinion interpretation. Dictated by: Misha Sadler M.D. Electronically signed by: Ross Booker M.D. Cruzito Velásquez MD IMG MAMMO PROCEDURES Fi nal Result documented in this encounter Visit Diagnoses Not on filedocumented in this encounter Care Teams Air Bag Buffer Relationship Specialty Start Date End Date Siva Burgos MD [address] [facility] [address] PCP - General 05/15/16 Cori Arreola MD [address] [address] Referring Physician Gynecology 04/10/18 documented as of this encounter
--- OUTSIDE RECORDS SUMMARY | 2024-06-23 18:25 | XMS_ITS | Encounter Summary ---
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 Start Time: 1301 End Time:1349 Yoshi Brock PT documented in this encounter Plan of Treatment Not on file documented as of this encounter Visit Diagnoses Diagnosis Lateral epicondylitis of left elbow- Primary De Quervain's disease (radial styloid tenosynovitis) documented in this encounter Care Teams Fingernail Former Relationship Specialty Start Date End Date Siva Burgos MD [address] [place] [address] PCP - General 05/15/16 Cori Arreola MD [address] [address] Referring Physician Gynecology 04/10/18 documented as of this encounter
--- OUTSIDE RECORDS SUMMARY | 2024-06-23 18:25 | XMS_ITS | Encounter Summary ---
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 - 08/06/2009 9:46 AM PACKAGING MACHINE OPERATOR Hospital Encounter [facility] Nelson MD [address] [place] [address] Internal hemorrhoids; External hemorrhoids Social History Tobacco Use Types Packs/Day Years Used Date Smoking Tobacco: Never Assessed Comments Unknown Sex and Gender Information Value Date Recorded Sex Assigned at Not on file 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
--- OUTSIDE RECORDS SUMMARY | 2024-06-23 18:25 | XMS_ITS | Encounter Summary ---
Author Organization [facility] Healthcare Address [address] [place] [address] Care Team Providers Care Harmonic Analyst Name Role Phone Siva Burgos MD Primary Care Provider [phone] Cori Arreola MD Unavailable [phone] Encounter Details Date Type Department Care Team (Late st Contact Info) Description 05/16/2018 7:30 AM SPACE SYSTEMS OPERATIONS MANAGER - 05/16/2018 8:30 AM SPACE SYSTEMS OPERATIONS MANAGER Surgery [facility] Operating Room [address] [place] [id number] Martin Valdez MD [address] [place] [address] [address] [address] RELEASE CARPAL TUNNEL hand table Surgery Details Date/Time Status Location OR Service Patient Class Case Class Case Type Trauma Case? 05/16/2018 7:30 AM Posted [facility] OPERATING ROOM OR Orthopaedics Outpatient Elective Panel 1 Procedure LRB Anes Op Region Wound Class Comments RELEASE CARPAL TUNNEL hand table Left General Wrist Class I - Clean Surgeon Surgeon Role Service Panel Martin Valdez MD Primary Orthopaedics 1 Special Needs hand tablePrev scheduled on 04/25 documented in this encounter Social History Tobacco Use Types Packs/Day Years Used Date Smoking Tobacco: Never Smokeless Tobacco: Never Alcohol Use Standard Drinks/Week Comments Yes 0 (1 standard drink = 0.6 oz pur e alcohol) Comments No Sex and Gender Information Value Date Recorded Sex Assigned at Not on file Legal Sex Female 9:53 AM SPACE SYSTEMS OPERATIONS MANAGER Gender Identity Not on file Sexual Orientation Not on file documented as of this encounter Last Filed Vital Signs Vital Sign Reading Time Taken Comments Blood Pressure 101/63 05/16/2018 8:30 AM SPACE SYSTEMS OPERATIONS MANAGER Pulse 82 05/16/2018 8:30 AM SPACE SYSTEMS OPERATIONS MANAGER Temperature 36.1 ??C (97 ??F) 05/16/2018 8:19 AM SPACE SYSTEMS OPERATIONS MANAGER Respiratory Rate 20 05/16/2018 8:30 AM SPACE SYSTEMS OPERATIONS MANAGER Oxygen Saturation 100% 05/16/2018 8:30 AM SPACE SYSTEMS OPERATIONS MANAGER Inhaled Oxygen Concentration - - Weight 53.6 kg (118 lb 2.7 oz) 05/16/2018 6:18 A M SPACE SYSTEMS OPERATIONS MANAGER Height 157.5 cm (5' 2 ) 05/16/2018 6:18 AM SPACE SYSTEMS OPERATIONS MANAGER Body Mass Index 21.61 05/16/2018 6:18 AM SPACE SYSTEMS OPERATIONS MANAGER documented in this encounter Discharge Instructions * Attachments The following attachments cannot be sent through Care Everywhere. * Carpal Tunnel Syndrome (Discharge Care) (Canadian) * Hydrocodone/Acetaminophen (By mouth) (Canadian) * Ascorbic Acid (Vitamin C) (By mouth) (Canadian) documented in this encounter Medications at Time of Discharge ascorbic acid (VITAMIN C) 500 mg tablet,chewable Take 1 tablet by mouth 2 times daily until finished 60 tablet/chew tab 05/07/2018 njnmg-li-4-dha-e qa-mrinijq-nef 1,010-030-11-80 mg capsuleIndicatio ns:stop 5 days before surgery [...] : Procedure(s): RELEASE CARPAL TUNNEL hand table E SYSTEMS OPERATIONS MANAGER Source Note - Keo Kaur PA - 05/06/2018 11:54 AM SPACE SYSTEMS OPERATIONS MANAGER Images from the original note were not [...] a positive EMG nerve conduction study. ? Label Press Operator completed by using eParachute Direct speaking software, therefore, transcriptionvariances may occur. [...] of the left fingers. Strength Interossei: 4/5 Dental Laboratory Manager: 4/5 ?? Neurovascular The patient has normal [...] and no changes since consent was signed. E SYSTEMS OPERATIONS MANAGER * Keo Kaur PA - 05/06/2018 11:54 [...] a positive EMG nerve conduction study. ? Label Press Operator completed by using M*Modal Fluency Direct speaking [...] no past medical history of Breast cancer ([facility]); Colon cancer (CMS/HCC); History of radiation therapy; [...] of the left fingers. Strength Interossei: 4/5 Dental Laboratory Manager: 4/5 ?? Neurovascular The patient has normal [...] and no changes since consent was signed. E SYSTEMS OPERATIONS MANAGER documented in this encounter Miscellaneous Notes * [...] TUNNEL hand table (L) ANESTHESIA: General PA-C: Olganigurudy IMPLANTS: Nothing was implanted during the procedure [...] Valdez MD Date: 05/16/2018 Time: 12:43 PM E SYSTEMS OPERATIONS MANAGER * Pre-Procedure Instructions - Celina Melendrez RN - 05/02/2018 4:24 PM CST We are pleased that you and your doctor have chosen [facility] for your surgery. We hope that the [...] of water. ?? Use no make-up, nail albanian, lotions, oils or powders on your skin. [...] posted at the top of the page. E SYSTEMS OPERATIONS MANAGER documented in this encounter Plan of Treatment Not on file documented as of this encounter Procedures Procedure Name Priority Date/Time Associated Diagnosis Comments RELEASE CARPAL TUNNEL 05/16/2018 7:24 AM SPACE SYSTEMS OPERATIONS MANAGER Carpal tunnel syndrome on left Special Needs hand tablePrev scheduled on 04/25 POCT HCG, URINE Routine 05/16/2018 6:17 AM SPACE SYSTEMS OPERATIONS MANAGER documented in this encounter Results * POCT hCG, urine (05/16/2018 6:17 AM SPACE SYSTEMS OPERATIONS MANAGER) HCG, ur, POC Negative Lot Number [id number] QC Backgroud Clear Acceptable QC Control Line Acceptable Urine 05/16/2018 6:17 AM SPACE SYSTEMS OPERATIONS MANAGER Yunier Sultana MD POINT OF CARE TEST ORD ERABLES Final Result documented in this encounter Visit Diagnoses Diagnosis Carpal tunnel syndrome on left- Primary Carpal tunnel syndrome Carpal tunnel syndrome on left Carpal tunnel syndrome documented in this encounter Admitting Diagnoses Diagnosis Carpal tunnel syndrome on left Carpal tunnel syndrome documented in this encounter Administered Medications Inactive Administered Medications - up to 3 most recent administrations Medication Order MAR Action Action Date Dose Rate Site bupivacaine (MARCAINE) 0.5 % (5 mg/mL) preservative free injection As needed, Starting on La 05/16/18 at 0759, Intra-Op Given 05/16/2018 8:04 AM SPACE SYSTEMS OPERATIONS MANAGER 5 mL Left Hand HYDROcodone-acetaminophe n (NORCO) 5-325 mg per tablet 1 tablet 1 tablet, oral, Once, On La 05/16/18 at 0945, For 1 dose, Indications: PainIndications:Pain Given 05/16/2018 9:08 AM SPACE SYSTEMS OPERATIONS MANAGER 1 tablet Lactated Ringer's (LR) infusion 30 mL/hr, intravenous, Continuous, Starting on La 05/16/18 at 0645, Pre-Op New Bag 05/16/2018 6:45 AM SPACE SYSTEMS OPERATIONS MANAGER 30 mL/hr 30 mL/hr sodium chloride 0.9 % irrigation As needed, Starting on La 05/16/18 at 0759, Intra-Op Given 05/16/2018 7:59 AM SPACE SYSTEMS OPERATIONS MANAGER 500 mL Surgical Site documented in this encounter Historical Medications * This list may reflect changes made after this encounter. ujgmo-gh-8-dha-epa -phospho-ast 1,225-157-31-80 mg capsuleIndications :stop 5 days before surgery Take by mouth added in this encounter Active and Recently Administered Medications Times are shown in SPACE SYSTEMS OPERATIONS MANAGER. Scheduled Medication Order 05/14/2018 05/15/2018 05/16/2018 HYDROcodone-acetaminophen [...] Count Last Ordered Date First Ordered Date ceFAZolin (ANCEF) 1000 mg in 10 mL [...] injection 0.04-0.4 mg 1 05/16/2018 sodium chloride 0.9% flush 0.5-20 mL 1 [...] 05/16/2018 documented in this encounter Care Teams Harmonic Analyst Relationship Specialty Start Date End Date Siva Burgos MD [address] [place] [address] PCP - General 05/15/16 Cori Arreola MD [address] [address] Referring Physician Gynecology 04/10/18 documented as of this encounter
--- OUTSIDE RECORDS SUMMARY | 2024-06-23 18:25 | XMS_ITS | Encounter Summary ---
Author Organization [facility] Healthcare Address [address] [place] [address] Care Team Providers Care Corporate Risk Analyst Name Role Phone Siva Burgos MD Primary Care Provider [phone] Encounter Details Date Type Department Care Team (Late st Contact Info) Description 07/04/2016 6:04 AM FIRE LOSS PREVENTION ENGINEER - 07/04/2016 12:53 PM FIRE LOSS PREVENTION ENGINEER Hospital Encounter [facility] Paulino, Aneesh Kaufman MD [address] [place] [address] [address] Calculus of gallbladder with chronic cholecystitis without obstruction Social History Tobacco Use Types Packs/Day Years Used Date Smoking Tobacco: Never Alcohol Use Standard Drinks/Week Comments Yes 0 (1 standard drink = 0.6 oz pur e alcohol) Comments Unknown Sex and Gender Information Value Date Recorded Sex Assigned at Not on file Legal Sex Female 9:53 AM FIRE LOSS PREVENTION ENGINEER Gender Identity Not on file [...] 05/14/2016 04/18/2018 documented as of this encounter Miscellaneous Notes * Op Note - Provider, MD Jocelyne - 07/04/2016 12:00 AM CST OPERATIVE REPORT Patient: LUCIANA MUSA Service Date: 07/04/2016 Account: [id number] Room No: 170-11 : 1975 Patient Type: SDS Attend.: Aneesh Bob M.D. Admit Date: 07/04/2016 Surgeon: Aneesh Bob M.D. Disch. Date: 07/04/2016 SURGEON Aneesh Bob MD PREOPERATIVE DIAGNOSIS Symptomatic gallstones. POSTOPERATIVE DIAGNOSIS Symptomatic gallstones. OPERATION Single side DaVinci cholecystectomy. ANESTHESIA General. INDICATIONS Typical abdominal pain and imaging demonstrating gallstones. DESCRIPTION OF THE PROCEDURE The risks, benefits of the procedure were explained to the patient. Informed consent was obtained. She was brought to the operating room. She was placed on the OR table in the supine position. General anesthesia was induced. She was intubated. Her abdomen was prepped and draped in sterile fashion. A vertically oriented 2.5 cm incision was made through her umbilicus. We carried the incision down through the subcutaneous tissue. The fascia was encountered and incised. We entered the peritoneum. We placed the single site port and insufflated the abdomen to 15 mmHg of CO2. The camera trocar was placed. We inspected the abdominal contents. The gallbladder was noted in the expected location. We placed the single site curved DaVinci ports under endoscopic visualization, as well as the diploma medical assistant port. The gallbladder was grasped at the fundus and retracted over the dome of the liver. A second grasper was used to retract the infundibulum laterally. Laterally we cleared away the fibrofatty connective tissue from the cystic artery and cystic duct with the hook cautery. The [place] was also used for dissection behind the cystic duct. We confirmed a critical view of safety. Cystic duct was clipped and divided with 2 clips on the stay side, 1 on the specimen side. The cystic artery was clipped with 2 clips on the stay side, and was cauterized on the specimen side. We removed the gallbladder from the underside of the liver. We had no evidence of bleeding or bile leak at the conclusion of the operation. The gallbladder was removed along with the single site port and handed off for pathology. We closed the defect with 2 vagbro-sg-gvcxt 0 Vicryl sutures at the fascia level, 3-0 Vicryl for the deep dermal layer, and 4-0 Monocryl running subcuticular. The patient tolerated the procedure well. Electronically Authenticated by: Aneesh Bob MD On 07/19/2016 12:00 PM FIRE LOSS PREVENTION ENGINEER Aneesh Bob M.D. ISAAC/abdoulaye TD: 07/04/2016 10:51 documented in this encounter Plan of Treatment Not on file documented as of this encounter Procedures Procedure Name Priority Date/Time Associated Diagnosis Comments SURGICAL PATHOLOGY 07/04/2016 documented in this encounter Results * Surgical pathology (07/04/2016) Narrative 07/04/2016 Ordered by an unspecified provider. Historical Provider LAB PATHOLOGY ORDERABLES Final Result documented in this encounter Visit Diagnoses Diagnosis Calculus of gallbladder with chronic cholecystitis without obstruction documented in this encounter Care Teams Corporate Risk Analyst Relationship Specialty Start Date End Date Siva Burgos MD [address] [facility] [place] [address] PCP - General 05/15/16 documented as of this encounter
--- OUTSIDE RECORDS SUMMARY | 2024-06-23 18:25 | XMS_ITS | Encounter Summary ---
Author Organization [facility] Address [address] [place] [address] Care Team Providers Care Well Logging Captain Name Role Phone Siva Burgos MD Primary Care Provider [phone] Cori Arreola MD Unavailable [phone] Reason for Visit * Reason Comments PT Treatment Encounter Details Date Type Department Care Team (Late st Contact Info) Description 01/30/2020 11:00 AM CDT Therapy [facility] Physical Therapy - [place] [address] Yoshi Brock, PT Lateral epicondylitis of left [...] on file Legal Sex Female 9:53 AM LINE OUT MAN Gender Identity Not on file Sexual Orientation Not on file documented as of this encounter Progress Notes * Yoshi Brock, PT - 01/30/2020 11:00 AM CDT PT Daily Treatment Note [...] Plan to cont per POC. Start Time: 1055 End Time:1150 Yoshi Brock PT documented in this encounter Plan of Treatment Not on file documented as of this encounter Visit Diagnoses Diagnosis Lateral epicondylitis of left elbow- Primary De Quervain's disease (radial styloid tenosynovitis) documented in this encounter Care Teams Well Logging Captain Relationship Specialty Start Date End Date Siva Burgos MD [address] [place] [address] PCP - General 05/15/16 Cori Arreola MD [address] [address] Referring Physician Gynecology 04/10/18 documented as of this encounter
--- OUTSIDE RECORDS SUMMARY | 2024-06-23 18:26 | XMS_ITS | Encounter Summary ---
Author Organization [facility] Healthcare Address [address] [place] [address] Care Team Providers Care Mental Health Advanced Practice Nurse Name Role Phone Unavailable Primary Care Provider Unavailabl e Encounter Details Date Type Department Care Team (Late st Contact Info) Description 02/21/2008 8:06 AM CDT - 02/21/2008 11:59 PM CDT Hospital Encounter [facility] Nelson MD [address] [place] [address] Social History Tobacco Use Types Packs/Day Years Used Date Smoking Tobacco: Never Assessed Comments Unknown Sex and Gender Information Value Date Recorded Sex Assigned at Not on file Legal Sex Female 9:53 AM BUNGY JUMP MASTER Gender Identity Not on file Sexual Orientation Not on file documented as of this encounter Plan of Treatment Not on file documented as of this encounter Visit Diagnoses Not on filedocumented in this encounter
--- OUTSIDE RECORDS SUMMARY | 2024-06-23 18:26 | XMS_ITS | Encounter Summary ---
Author Organization [facility] Healthcare Address [address] [place] [address] Care Team Providers Care Well Tester Name Role Phone Unavailable Primary Care Provider Unavailabl e Encounter Details Date Type Department Care Team (Latest Contact Info) Description 2008 12:01 AM LUBRICATION SERVICER - 09/15/2008 11:59 PM CDT Hospital [place] [address] [facility] [address] [place] [address] Encounter for other physical therapy; Other musculoskeletal symptoms referable to limbs; Disturbance of skin sensation Social History Tobacco Use Types Packs/Day Years Used Date Smoking Tobacco: Never Assessed Comments Unknown Sex and Gender Information Value Date Recorded Sex Assigned at Not on file Legal Sex Female 9:53 AM LUBRICATION SERVICER Gender Identity Not on file Sexual Orientation Not on file documented as of this encounter Plan of Treatment Not on file documented as of this encounter Visit Diagnoses Diagnosis Encounter for other physical therapy Other musculoskeletal symptoms referable to limbs Disturbance of skin sensation documented in this encounter
--- OUTSIDE RECORDS SUMMARY | 2024-06-23 18:26 | XMS_ITS | Encounter Summary ---
Author Organization [facility] Healthcare Address [address] [place] [address] Care Team Providers Care Wood Boat Builder Supervisor Name Role Phone Unavailable Primary Care Provider Unavailabl e Encounter Details Date Type Department Care Team (Latest Contact Info) Description 09/16/2008 12:01 AM CDT - 09/25/2008 10:49 AM CDT Hospital [place] [address] [facility] [address] [place] [address] Encounter for other physical therapy; Other musculoskeletal symptoms referable to limbs; Disturbance of skin sensation Social History Tobacco Use Types Packs/Day Years Used Date Smoking Tobacco: Never Assessed Comments Unknown Sex and Gender Information Value Date Recorded Sex Assigned at Not on file Legal Sex Female 9:53 AM NET MVC DEVELOPER Gender Identity Not on file Sexual Orientation Not on file documented as of this encounter Plan of Treatment Not on file documented as of this encounter Visit Diagnoses Diagnosis Encounter for other physical therapy Other musculoskeletal symptoms referable to limbs Disturbance of skin sensation documented in this encounter
--- OUTSIDE RECORDS SUMMARY | 2024-06-23 18:26 | XMS_ITS ---
Author Organization [facility] [address] Address [address] [place] [address] Care Team Providers Care Grips Name Role Phone Siva Burgos MD Primary Care Provider [phone] Cori Arreola MD Unavailable Transplant Episode Kidney Potential Donor [facility] ([place], [place]) [facility] Evaluation began on 04/22/2007 Marked as Ineligible on 10/05/2008 Reason: Recipient / Parent Choice Kidney CoordinatorHistorical ProviderMD Fax: N/A Email: N/A Care Team Name Role Phone Fax Email Historical MD Anabelle Kidney Coordinator [phone] N/ A N/A Events Pre-Donation Referred: 04/22/2007 Evaluation began: 04/22/2007
--- OUTSIDE RECORDS SUMMARY | 2024-06-23 18:26 | XMS_ITS | Encounter Summary ---
Author Organization [facility] Healthcare Address [address] [place] [address] Care Team Providers Care Label Drier Name Role Phone Unavailable Primary Care Provider Unavailabl e Encounter Details Date Type Department Care Team (Latest Contact Info) Description 07/31/2008 10:30 AM BARREL BURNER - 08/15/2008 11:59 PM BARREL BURNER Hospital [place] [address] [facility] [address] [place] [address] Encounter for other physical therapy; Other musculoskeletal symptoms referable to limbs; Disturbance of skin sensation Social History Tobacco Use Types Packs/Day Years Used Date Smoking Tobacco: Never Assessed Comments Unknown Sex and Gender Information Value Date Recorded Sex Assigned at Not on file Legal Sex Female 9:53 AM BARREL BURNER Gender Identity Not on file Sexual Orientation Not on file documented as of this encounter Plan of Treatment Not on file documented as of this encounter Visit Diagnoses Diagnosis Encounter for other physical therapy Other musculoskeletal symptoms referable to limbs Disturbance of skin sensation documented in this encounter
== END 2024-06-16 10:42 | disposition home or self-care (01) ==
LOC: ANHED 10:27
PROVIDERS: Emergency Provider Physician Assistant; PCP Internal Medicine
DX: S61.212A Laceration without foreign body of right middle finger without damage to nail, initial encounter (principal); S61.214A Laceration without foreign body of right ring finger without damage to nail, initial encounter; Z23 Encounter for immunization; Z90.49 Acquired absence of other specified parts of digestive tract; W27.8XXA Contact with other nonpowered hand tool, initial encounter
CPT/HCPCS: 12002; 90471; 90715; 99282; J2003